=== PATIENT | male | born 1955 | race Hispanic/Latino ===

== ENCOUNTER 2017-09-27 22:08 | Emergency (ER) | payer SELFPAY ==
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
[2017-09-27 23:27] VITALS: BP 152/87; TEMP 97.5; O2SAT 96
== END 2017-09-27 23:23 | disposition home or self-care (01) ==
LOC: ER 22:08
DX: S81.851A Open bite, right lower leg, initial encounter (principal); W54.0XXA Bitten by dog, initial encounter; Y93.9 Activity, unspecified; Y92.9 Unspecified place or not applicable
CPT/HCPCS: 99284

== ENCOUNTER 2021-09-29 12:27 | Emergency (ER) | payer OTHER, SELFPAY ==
--- OUTSIDE RECORDS SUMMARY | 2021-09-29 12:30 | XMS REPORT | Continuity of Care Document ---
:1955 Author Organization [facility] t Address [address] [place] [address] Care Team Providers Name Role Phone Macario REAVES Primary Care Physician Unavailable Macario Reaves Attending Clinician Unavailable uRssell BASSETT Attending Clinician RUSSELL Attending Clinician Unavailable Payers Payer Name Policy Type Policy Number Effective Date Expiration Date S hafsa [employer] MEDICARE OUT [id number] 2020 OF NETWORK 00:00:00 Problems Condition Condition Condition Status Onset Resolution Last Treating Co mments Source Name Details Category Date Date Treatment Clinician Date No known No known Disease Unive rs active active ity of problems problems [facility] Allergies, Adverse Reactions, Alerts Allergy Allergy Status Severity Reaction(s) Onset Inactive Treating Comm ents Source Name Type Date Date Clinician NO KNOWN Drug Active Univers ALLERGIE Class ity of S [facility] Social History Social Habit Start Date Stop Date Quantity Comments Source Exposure to 2021-09-15 2021-09-25 Not sure [facility] SARS-CoV-2 (event) 00:00:00 10:52:00 Medica l Branch Sex Assigned At [birth year] [facility] 00:00:00 00:00:00 [facility] [place] Smoking Status Start Date Stop Date Source Unknown if ever smoked [facility] Medications Ordered Filled Start Stop Current Ordering Indication Dosage Frequency Signature Comments Components Source Medication Medication Date Date Medication? Clinician (SIG) Name Name meclizine 50mg 50 mg, Unive rs (TRAVEL-EAS 09-25 Oral, ity of E 17:15: 16:19 ONCE, 1 [place] (MECLIZINE) 00 :00 dose, On [facility] ) tablet 50 Mon Branch mg 09/25/21 at 1215, JAMES meclizine Yes [id number] 25mg Take 1 U nivers 25 mg -25 tablet by ity of tablet 00:00: mouth 3 [place] 00 (three) Medical times [place] daily as needed for Dizziness. Immunizations Ordered Filled Immunization Date Status Comments [facility] e Immunization Name Name SARS-COV-2 COVID-19 2021-03-27 Completed Unive rsity of MODERNA BOOSTER 00:00:00 [facility] VACCINE Branch SARS-COV-2 COVID-19 2020 Completed Unive rsity of MODERNA VACCINE 00:00:00 [facility] SARS-COV-2 COVID-19 2020-08-10 Completed Unive rsity of MODERNA VACCINE 00:00:00 [facility] Vital Signs Vital Name Observation Time Observation Value Comments Source Systolic blood 2021-09-25 18:30:00 151 mm[Hg] Univer sity of pressure [facility] Diastolic blood 2021-09-25 18:30:00 84 mm[Hg] Unive rsity of pressure [facility] Heart rate 2021-09-25 18:30:00 60 /min [facility] Respiratory rate 2021-09-25 18:30:00 18 /min [facility] Oxygen saturation in 2021-09-25 18:30:00 96 /min [facility] Arterial blood by [facility] Pulse oximetry Branch Body temperature 2021-09-25 15:53:00 37.5 [facility] height 2021-09-25 15:53:00 167.6 cm [facility] Body weight 2021-09-25 15:53:00 106.595 kg [facility] BMI 2021-09-25 15:53:00 37.93 kg/m2 [facility] Procedures Procedure Date / Time Performing Clinician Source Performed URINALYSIS 2021-09-25 17:06:00 rA Willis [facility] TROPONIN I 2021-09-25 16:15:00 Ar Willis [facility] COMP. METABOLIC PANEL 2021-09-25 16:15:00 Ar Willis [facility] ([id number]) [facility] CBC WITH DIFF 2021-09-25 16:15:00 Ar Willis [facility] PROTHROMBIN TIME / INR 2021-09-25 16:15:00 Ar Willis [facility] N-TERMINAL PRO-BNP 2021-09-25 16:15:00 Ar Willis [facility] NOTICE OF PRIVACY 2021-09-25 15:19:29 Doctor Unassigned, No [facility] PRACTICES Name [facility] CONSENT/REFUSAL FOR 2021-09-25 15:16:45 Doctor Unassigned, No [facility] DIAGNOSIS AND TREATMENT Name [facility] Encounters Start End Encounter Admission Attending Care Care Encounter Source Date/Time Date/Time Type Type Clinicians Facility Department ID 2021-09-28 Outpatient Reaves, [facility] 15:16:01 [place] [id number] [facility] 2021-08-21 Outpatient [place], [place] [id number] 14:33:01 [place] [address] [facility] 2021-06-28 Outpatient Reaves, [facility] [id number] 13:28:32 [place] [address] [facility] 2021-06-28 Outpatient Reaves, [place] [id number] 13:27:55 [place] [address] [facility] 2021-06-28 Outpatient Reaves, [facility] [id number] 13:12:22 [place] [address] [facility] 2021-06-28 Outpatient Reaves, [facility] [id number] 12:46:44 [place] [address] [facility] 2021-06-28 Outpatient Reaves, [facility] [id number] 12:35:25 [place] [address] [facility] 2021-06-28 Outpatient Reaves, [facility] [id number] 12:34:29 [place] [address] [facility] 2021-06-28 Outpatient Reaves, [facility] [id number] 12:09:27 [place] [address] [facility] 2021-06-28 Outpatient Reaves, [facility] [id number] 12:08:45 [place] [address] [facility] 2021-06-28 Outpatient Reaves, [facility] [id number] 12:03:46 [place] [address] [facility] 2021-06-28 Outpatient Reaves, [facility] [id number] 12:02:46 [place] [address] [facility] 2021-06-28 Outpatient Reaves, [facility] [id number] 12:02:32 [place] [address] [facility] 2021-09-27 2021-09-27 ambulatory [facility] [id number] [facility]00 [facility] 2021-09-26 2021-09-26 ambulatory [facility] [id number] [facility] 2021-09-25 2021-09-25 Emergency Willis, [facility] [id number] Univers 10:54:00 13:49:00 Ar GRAY [id number] i Joel [id number] [facility] [id number] [address] 2021-09-25 2021-09-25 Emergency X RUSSELL, [facility] ERT [id number] Univers 10:54:00 13:49:00 AR [facility] 2021-08-21 2021-08-21 ambulatory [facility] [id number] [facility] 2021-08-21 2021-08-21 ambulatory [facility] [id number] [facility] 2021-08-21 2021-08-21 ambulatory [facility] [id number] [facility] 2021-07-31 2021-07-31 ambulatory [facility] [id number] [facility] 2021-06-01 2021-06-01 ambulatory [facility] [id number] [facility] 2020-12-16 2020-12-16 Outpatient [facility] [id number] [facility] 2020-12-07 2020-12-07 Outpatient [facility] [id number] [facility] 2020-12-02 2020-12-02 Outpatient [facility] [id number] [facility] 2020-10-14 2020-10-14 Outpatient [facility] [id number] [facility] 2020-10-03 2020-10-03 Outpatient [facility] [id number] [facility] 2020-09-01 2020-09-01 Outpatient [facility] [id number] [facility] 2020-08-18 2020-08-18 Outpatient [facility] [id number] [facility] 2020-08-02 2020-08-02 Out[facility] [id number] [facility] 2020-08-02 2020-08-02 Outpatient [facility] [id number] [facility] 2020-06-30 2020-06-30 Outpatient [facility] [id number] [facility] 2020-05-16 2020-05-16 Outpatient [facility] [id number] [facility] 2020-05-03 2020-05-03 Outpatient [facility] [id number] [facility] 2020-04-07 2020-04-07 [facility] [id number] [facility] 2020-04-07 2020-04-07 Outpatient [facility] [id number] [facility]00 [facility] Results Test Description Test Time Test Comments Results Result Comments Source TROPONIN I 2021-09-25 17:05:44 Test Item Value Reference Range Interpretation Comme nts TROPONIN I (test code = 0.004 ng/mL See_Comment [Au tomated message] The [id number]) system which ge nerated this result tra nsmitted reference range : <=0.034. The reference r serg was not used to int erpret this result as normal/abnormal . DAMIAN (test code = DAMIAN) Reference (Normal) Range (defined by the 99th percentile reference limit): <= 0.034 ng/mL Note: Cardiac troponin begins to rise 3-4 hours after the onset of ischemia. Repeat in 4-6 hours if the sample was drawn within 3-4 hours of the onset of the symptom and found normal. Diagnosis of myocardial injury is made with acute changes in cTn concentrations with at least one serial sample above the 99th percentile upper reference limit (URL), taken together with the patient's clinical presentation. Biotin has been reported to cause a negative bias, interpret results relative to patient's use of biotin. Lab Interpretation Normal (test code = 23510-3) [id number] 17:02:41 Test Item Value Reference Range Interpretation Comments NT-proBNP (test code 189 pg/mL See_Comment H [Autom ated = [id number]) message] The system which generated this result transmitted reference range : <=125. The reference range was not used to interpret this result as normal/abnormal . DAMIAN (test code = DAMIAN) Biotin has been reported to cause a negative bias, interpret results relative to patient's use of biotin. Lab Interpretation Abnormal (test code = 93719-6) [facility] / [id number] 16:54:00 Test Item Value Reference Range Interpretation Comments PROTIME PATIENT (test See_Comment [Auto mated message] code = 5964-2) The system wh ich generated this result transmitted ref erence range: 12.0 - 1 4.7 Seconds. The re ference range was not u sed to interpret this result as normal/abnor mal. INR (test code = 6301-6) Nor mal INR <1.1; Warfarin Therap eutic range 2.0 to 3. 0 or 2.5 to 3.5, dep ending upon the indica tions. Lab Interpretation (test Normal code = 33745-4) [facility] ([id number])2021-09-25 16:53:21 Test Item Value Reference Range Interpretation Comments NA (test code = 137 mmol/L 135-145 0121711827) K (test code = 4.1 mmol/L 3.5-5.0 7688109170) CL (test code = 99 mmol/L 98-108 2509890225) CO2 TOTAL (test code = 27 mmol/L 23-31 8836631098) AGAP (test code = 2-16 3040968739) BUN (test code = 13 mg/dL 7-23 0001055010) GLUCOSE (test code = 191 mg/dL 70-110 H 7814846342) CREATININE (test code = 0.68 mg/dL 0.60-1.25 5526242924) TOTAL BILI (test code = 0.5 mg/dL 0.1-1.4 3674393509) CALCIUM (test code = 9.7 mg/dL 8.6-10.6 4391239395) T PROTEIN (test code = 7.0 g/dL 6.3-8.2 9402112426) ALBUMIN (test code = 4.4 g/dL 3.5-5.0 8632984179) ALK PHOS (test code = 68 U/L 34-122 6952217004) ALTv (test code = 30 U/L 5-50 2-6) AST(SGOT) (test code = 28 U/L 13-40 8712142978) eGFR (test code = mL/min/1.73m2 2757582266) DAMIAN (test code = DAMIAN) Association of Glomerular Filtration Rate (GFR) and Staging of Kidney Disease* + --+ --+ ------+| GFR (mL/min/1.73 m2) ?| With Kidney Damage ?| ?Without Kidney Damage+ --------+ --------+ +| ?>90 ?| ?Stage one ?| ? Normal ?+ ---+ ---+ -------+| ?60-89 ?| ?Stage two ?| ? Decreased GFR ? + --+ --+ ------+| ?30-59 ?| ?Stage three ?| ? Stage three ? + --+ --+ ------+| ?15-29 ?| ?Stage four ? | ? Stage four ?+ ---+ ---+ -------+| ?<15 (or dialysis) ? ?| ?Stage five ? | ? Stage five ?+ ---+ ---+ -------+ *Each stage assumes the associated GFR level has been in effect for at least three months. ?Stages 1 to 5, with or without kidney disease, indicate chronic kidney disease. Notes: Determination of stages one and two (with eGFR >59mL/min/1.73 m2) requires estimation of kidney damage for at least three months as defined by structural or functional abnormalities of the kidney, manifested by either:Pathological abnormalities or Markers of kidney damage (including abnormalities in the composition of the blood or urine or abnormalities in imaging tests). Lab Interpretation Abnormal (test code = 39686-0) [facility] [id number] 16:48:42 Test Item Value Reference Range Interpretation Comments WBC (test code = See_Comment [Automated 6690-2) message] The sy stem which generated this result transmitted reference range : 4.20 - 10.70 10*3/?L. The reference range was not used to interpret this result as normal/abnormal . RBC (test code = See_Comment [Automated 789-8) message] The sy stem which generated this result transmitted reference range : 4.26 - 5.52 10*6/?L. The reference range was not used to interpret this result as normal/abnormal . HGB (test code = 14.0 g/dL 12.2-16.4 718-7) HCT (test code = 41.0 % 38.4-49.3 4544-3) MCV (test code = 87.2 fL 81.7-95.6 787-2) MCH (test code = 29.8 pg 26.1-32.7 785-6) MCHC (test code = 34.1 g/dL 31.2-35.0 786-4) RDW-SD (test code = 37.1 fL 38.5-51.6 L 43574-8) RDW-CV (test code = 11.6 % 12.1-15.4 L 788-0) PLT (test code = See_Comment [Automated 777-3) message] The sy stem which generated this result transmitted reference range : 150 - 328 10*3/ ?L. The reference r serg was not used to interpret this result as normal/abnormal . MPV (test code = 10.0 fL 9.8-13.0 11995-5) NRBC/100 WBC (test See_Comment [Automat ed code = 7147687895) message] The system which generated this result transmitted reference range : 0.0 - 10.0 /100 WBCs. The refer ence range was not u sed to interpret th is result as normal/abnormal . NRBC x10^3 (test code <0.01 See_Comment [Auto mated = 9351763119) message] The s ystem which generated this result transmitted reference range : 10*3/?L. The reference range was not used to interpret this result as normal/abnormal . GRAN MAT (NEUT) % 55.4 % (test code = 770-8) IMM GRAN % (test code 0.30 % = 2168531340) LYMPH % (test code = 28.3 % 736-9) MONO % (test code = 10.1 % 5905-5) EOS % (test code = 5.4 % 713-8) BASO % (test code = 0.5 % 706-2) GRAN MAT x10^3(ANC) 3.66 10*3/uL 1.99-6.95 (test code = 4413456222) IMM GRAN x10^3 (test <0.03 0.00-0.06 code = 9102299429) LYMPH x10^3 (test code 1.87 10*3/uL 1.09-3.23 = 731-0) MONO x10^3 (test code 0.67 10*3/uL 0.36-1.02 = 742-7) EOS x10^3 (test code = 0.36 10*3/uL 0.06-0.53 711-2) BASO x10^3 (test code 0.03 10*3/uL 0.01-0.09 = 704-7) Lab Interpretation Abnormal (test code = 63149-0) [facility]"
[2021-09-29 14:00] LABS: Absolute Lymphocytes (CBC) 2.3 K/uL (0.7-4.9); Hematocrit 42.9 % (39.6-49.0); Lymphocytes % 27.7 % (15.3-44.8); RBC Red Blood Cell Count 4.79 M/uL (4.33-5.43)
--- NOTE | 2021-09-29 14:11 | RAD REPORT ---
EXAM DESCRIPTION: CT - Head Brain Wo Cont - 09/29/2021 1:54 pm CLINICAL HISTORY: Dizziness COMPARISON: None TECHNIQUE: Computed axial tomography of the head was obtained. IV contrast was not requested. All CT scans are performed using dose optimization technique as appropriate and may include automated exposure control or mA/KV adjustment according to patient size. FINDINGS: An intracranial bleed is not seen . The ventricles are normal in caliber. No extra-axial fluid collection is noted. Vertebral and carotid calcifications. Small low-density area within the right basal ganglia probably old lacunar infarction Fluid within the sinuses/ mastoids is not seen. A mucus retention cyst right maxillary sinus IMPRESSION: No acute intracranial abnormality is seen. If patient's symptoms persist MRI of the bra in would be recommended.
[2021-09-29 14:12] LABS: Potassium 3.7 mmol/L (3.5-5.1); Troponin High Sensitivity 6.5 pg/mL (<58.9)
--- NOTE | 2021-09-29 15:05 | RAD REPORT ---
EXAM DESCRIPTION: Mayur Single View09/29/2021 2:03 pm CLINICAL HISTORY: Chest pain COMPARISON: 2011 FINDINGS: The lungs appear clear of acute infiltrate. The heart is normal size IMPRESSION: No acute abnormalities displayed
--- NOTE | 2021-09-29 16:54 | RAD REPORT ---
EXAM DESCRIPTION: MRI - Brain W/Wo Cont - 09/29/2021 4:04 pm CLINICAL HISTORY: Dizziness COMPARISON: head CT September 29, 2021 TECHNIQUE: Axial, sagittal, and coronal magnetic images of the brain were obtained. 20 cc MultiHance administered intravenously FINDINGS: A 2 centimeter area of abnormal signal right unique consistent with acute infarction. 3.8 centimeter area of abnormal signal medial left temporal lobe. It demonstrates mostly peripheral e nhancement. The ventricles are normal in caliber. Mild signal within periventricular, deep and subcortical white matter probably ischemic changes secon dayana to small vessel disease. No abnormal enhancement within the brain is seen. An extra-axial fluid collection is not noted. Fluid within the sinuses/mastoids is not seen IMPRESSION: Acute right pontine infarct 3.8 centimeter area of abnormal enhancement left temporal lobe may represent infection such as herpes or neoplasm
[2021-09-29] MEDS ORDERED: LEVETIRACETAM 500 MG/5 ML VIAL IV ONE (17:34)
[2021-09-29] MEDS ORDERED: NA CHLORIDE 0.9% 100 ML IV ONE (17:35)
--- NOTE | 2021-09-29 17:37 | EDPHYS ---
Physician Documentation [facility] Name: Charlie Vences Jr Age: 66 yrs Sex: Male : 1955 Arrival Date: 09/29/2021 Time: 12:29 Bed 17 Private MD: Jean Paul [facility] ED Physician Gerald Nur HPI: 09/29 14:21 This 66 yrs old Male presents to ER via Ambulatory with complaints of kdr Dizziness, Headache. 14:21 The patient presents with generalized weakness, lightheadedness, feeling off balance. kdr Onset: The symptoms/episode began/occurred suddenly, 1 week(s) ago. Context: occurred at home, occurred while the patient was at rest. Modifying factors: The symptoms are alleviated by holding head still, lying down, the symptoms are aggravated by movement of head, standing up, changing position. Associated signs and symptoms: The patient has no apparent associated signs or symptoms, Pertinent positives: blurred vision, headache. Severity of symptoms: At their worst the symptoms were very mild in the emergency department the symptoms are unchanged. Patient's baseline: Neuro: alert and fully oriented, alert but confused. The patient has not experienced similar symptoms in the past. The patient has not recently seen a physician. Since last Saturday the patient has been dizzy. Seem to get worse over the weekend. Currently he is not dizzy while in bed in a stationary position but if he looks up or down he has mild to moderate dizziness. Also when he changes positions is lightheaded and dizzy.. Historical: - Home Meds: 12:37 None [Active]; ab2 - PMHx: 12:37 Diabetes - NIDDM; Hypertension; ab2 - PSHx: 12:37 None; ab2 - Immunization history:: Adult Immunizations up to date. - Social history:: Smoking status: Patient reports the use of cigarette tobacco products, smokes one pack cigarettes per day. ROS: 14:21 Constitutional: Negative for fever, chills, and weight loss, Eyes: Negative for injury, kdr pain, redness, and discharge, ENT: Negative for injury, pain, and discharge, Neck: Negative for injury, pain, and swelling, Cardiovascular: Negative for chest pain, palpitations, and edema, Respiratory: Negative for shortness of breath, cough, wheezing, and pleuritic chest pain, Abdomen/GI: Negative for abdominal pain, nausea, vomiting, diarrhea, and constipation, Back: Negative for injury and pain, : Negative for injury, bleeding, discharge, and swelling, MS/Extremity: Negative for injury and deformity, Skin: Negative for injury, rash, and discoloration, Psych: Negative for depression, anxiety, suicide ideation, homicidal ideation, and hallucinations, Allergy/Immunology: Negative for hives, rash, and allergies, Endocrine: Negative for neck swelling, polydipsia, polyuria, polyphagia, and marked weight changes, Hematologic/Lymphatic: Negative for swollen nodes, abnormal bleeding, and unusual bruising. 14:21 Neuro: Positive for altered mental status, headache, visual changes, weakness, Patient reports a headache that is nonacute and nontoxic, Negative for gait disturbance, hearing loss. Exam: 14:21 Constitutional: This is a well developed, well nourished patient who is awake, alert, kdr and in no acute distress. Head/Face: Normocephalic, atraumatic. Eyes: Pupils equal round and reactive to light, extra-ocular motions intact. Lids and lashes normal. Conjunctiva and sclera are non-icteric and not injected. Cornea within normal limits. Periorbital areas with no swelling, redness, or edema. Neck: Trachea midline, no thyromegaly or masses palpated, and no cervical lymphadenopathy. Supple, full range of motion without nuchal rigidity, or vertebral point tenderness. No Meningismus. Chest/axilla: Normal chest wall appearance and motion. Nontender with no deformity. No lesions are appreciated. Cardiovascular: Regular rate and rhythm with a normal S1 and S2. No gallops, murmurs, or rubs. Normal PMI, no JVD. No pulse deficits. Respiratory: Lungs have equal breath sounds bilaterally, clear to auscultation and percussion. No rales, rhonchi or wheezes noted. No increased work of breathing, no retractions or nasal flaring. Abdomen/GI: Soft, non-tender, with normal bowel sounds. No distension or tympany. No guarding or rebound. No evidence of tenderness throughout. Back: No spinal tenderness. No costovertebral tenderness. Full range of motion. Skin: Warm, dry with normal turgor. Normal color with no rashes, no lesions, and no evidence of cellulitis. MS/ Extremity: Pulses equal, no cyanosis. Neurovascular intact. Full, normal range of motion. Neuro: Awake and alert, GCS 15, oriented to person, place, time, and situation. Cranial nerves II-XII grossly intact. Motor strength 5/5 in all extremities. Sensory grossly intact. Cerebellar exam normal. Normal gait. Psych: Awake, alert, with orientation to person, place and time. Behavior, mood, and affect are within normal limits. 14:21 Neuro: Patient stood at bedside. He had very slight dizziness at that time. He did not have any nausea or vomiting. And going from laying to sitting, he did not have any vertiginous symptoms. Overall his symptoms were very mild. Vital Signs: 12:35 BP 157 / 86; Pulse 71; Resp 17; Temp 97.9; Pulse Ox 99% on R/A; Weight 106.59 kg; ab2 Height 5 ft. 6 in. (167.64 cm); Pain 8/10; 14:23 BP 137 / 72; Pulse 63; Resp 17; Pulse Ox 98% on R/A; ceja 17:08 BP 155 / 63; Pulse 86; Resp 17; Pulse Ox 98% on R/A; ceja 12:35 Body Mass Index 37.93 (106.59 kg, 167.64 cm) ab2 MDM: 14:21 Data reviewed: vital signs, nurses notes, lab test result(s), radiologic studies. kdr Counseling: I had a detailed discussion with the patient and/or guardian regarding: the historical points, exam findings, and any diagnostic results supporting the discharge/admit diagnosis, lab results, radiology results, the need for outpatient follow up. 17:36 Patient medically screened. kdr 18:12 ED course: I discussed the results with Dr. Whaley. He felt that given the lack of kdr signs and symptoms of infection, herpes was not likely at this time. Given his medical history and social history of being a smoker, certainly the neoplasm was high up on the list. He recommended that we load with Keppra and transfer to [facility] in the [facility]. He was not going to be available after today through the weekend. Patient remained stable in the ED and was transferred to the [facility] without complication or issues. I discussed all of the findings with the patient and the spouse. They were happy with the care provided the plan for transfer to the [facility]. 09/29 12:47 Order name: Basic Metabolic Panel; Complete Time: 16:36 kdr 09/29 12:47 Order name: CBC with Diff kdr 09/29 12:47 Order name: Troponin HS; Complete Time: 16:36 kdr 09/29 12:47 Order name: XRAY Chest (1 view); Complete Time: 16:36 kdr 09/29 13:24 Order name: CT Head Brain wo Cont; Complete Time: 16:36 kdr 09/29 17:17 Order name: SARS-COV-2 RT PCR (Document "Date of Onset" if Symptomatic) eb 09/29 12:47 Order name: EKG; Complete Time: 12:48 kdr 09/29 12:47 Order name: Cardiac monitoring; Complete Time: 14:21 kdr 09/29 12:47 Order name: EKG - Nurse/Tech; Complete Time: 13:09 kdr 09/29 12:47 Order name: IV Saline Lock; Complete Time: 14:21 kdr 09/29 12:47 Order name: Labs collected and sent; Complete Time: 14:21 kdr 09/29 12:47 Order name: O2 Per Protocol; Complete Time: 14:21 kdr 09/29 13:24 Order name: MRI - Brain W/Wo Cont; Complete Time: 17:02 kdr 09/29 12:47 Order name: O2 Sat Monitoring; Complete Time: 14:21 kdr Administered Medications: 17:35 Drug: Keppra (levETIRAcetam) 1000 mg Route: IV; Rate: calculated rate; Site: right ceja antecubital; Disposition Summary: 09/29/21 17:36 Transfer Ordered Transfer Location: [facility] kdr Reason: Higher level of care kdr Condition: Serious kdr Problem: new kdr Symptoms: have improved kdr Accepting Physician: Arjun(09/29/21 19:55) betsey Diagnosis - Acute Pontine Infarct, Temporal lobe lesion kdr Forms: - Medication Reconciliation Form kdr - SBAR form kdr Signatures: Dispatcher [employer] EDMS Gerald Nur MD MD kdr Rylee Acosta RN Kathryn Pearl RN RN ha Bleininger, Alexis ab2 Corrections: (The following items were deleted from the chart) 19:55 17:36 Arjun leggett
--- NOTE | 2021-09-29 17:37 | ER ---
Nurse's Notes [facility] Name: Charlie Vences Jr Age: 66 yrs Sex: Male : 1955 Arrival Date: 09/29/2021 Time: 12:29 Bed 17 Private MD: Edgard Reaves Diagnosis: Acute Pontine Infarct, Temporal lobe lesion Presentation: 09/29 12:35 Chief complaint: Patient states: "Since Saturday I have been dizzy and having a hard time ab2 keeping my balance." Pt denies chest pain and SOB. Pt c/o headache. Chief complaint:. Coronavirus screen: Vaccine status: Patient reports receiving the 2nd dose of the covid vaccine. Client denies travel out of the [place] in the last 14 days. At this time, the client does not indicate any symptoms associated with coronavirus-19. Ebola Screen: Patient negative for fever greater than or equal to 101.5 degrees Fahrenheit, and additional compatible Ebola Virus Disease symptoms Patient denies exposure to infectious person. Patient denies travel to an Ebola-affected area in the 21 days before illness onset. No symptoms or risks identified at this time. Initial Sepsis Screen: Does the patient meet any 2 criteria? No. Patient's initial sepsis screen is negative. Does the patient have a suspected source of infection? No. Patient's initial sepsis screen is negative. Risk Assessment: Do you want to hurt yourself or someone else? Patient reports no desire to harm self or others. Onset of symptoms is unknown. 12:35 Method Of Arrival: Ambulatory ab2 12:35 Acuity: AIMEE 3 ab2 Triage Assessment: 12:37 Headache History: The patient has had previous headaches and this one is similar to ab2 previous episodes. General: Appears in no apparent distress. uncomfortable, Behavior is calm, cooperative, appropriate for age. Pain: Complains of pain in head Pain currently is 8 out of 10 on a pain scale. Pain began Saturday Also complains of sleeplessness. Neuro: Level of Consciousness is awake, alert, obeys commands, Oriented to person, place, time, situation, Appropriate for age Adjunct Professor Of Voice are equal bilaterally Moves all extremities. Gait is Speech is normal, Facial symmetry appears normal, Intact. Cardiovascular: Reports lightheadedness, Denies chest pain, shortness of breath, Patient's skin is warm and dry. Respiratory: Airway is patent Respiratory effort is even, unlabored, Respiratory pattern is regular, symmetrical. GI: No deficits noted. No signs and/or symptoms were reported involving the gastrointestinal system. : No deficits noted. No signs and/or symptoms were reported regarding the genitourinary system. Derm: Skin is intact, is healthy with good turgor, Skin is pink, warm \\T\\ dry. Musculoskeletal: No deficits noted. No signs and/or symptoms reported regarding the musculoskeletal system. Historical: - Home Meds: 12:37 None [Active]; ab2 - PMHx: 12:37 Diabetes - NIDDM; Hypertension; ab2 - PSHx: 12:37 None; ab2 - Immunization history:: Adult Immunizations up to date. - Social history:: Smoking status: Patient reports the use of cigarette tobacco products, smokes one pack cigarettes per day. Screenin:31 Abuse screen: Denies threats or abuse. Denies injuries from another. Nutritional ceja screening: No deficits noted. Tuberculosis screening: No symptoms or risk factors identified. Fall Risk None identified. Assessment: 14:31 General: Appears in no apparent distress. distressed, Behavior is calm, cooperative. ceja Pain: Denies pain. Neuro: Reports dizziness, headache. 19:34 Reassessment: The pt is to be transported, via EMS, to [facility]. His is at bedside and we are awaiting EMS to arrive. Report was called by previous RN and the chart has been copied. The pt remarkably, has no deficits. 19:47 Reassessment: The pt left, via EMS, with [facility]. [facility]ulated [facility] and his sent him with his home meds, for admit. Vital Signs: 12:35 BP 157 / 86; Pulse 71; Resp 17; Temp 97.9; Pulse Ox 99% on R/A; Weight 106.59 kg; ab2 Height 5 ft. 6 in. (167.64 cm); Pain 8/10; 14:23 BP 137 / 72; Pulse 63; Resp 17; Pulse Ox 98% on R/A; ceja 17:08 BP 155 / 63; Pulse 86; Resp 17; Pulse Ox 98% on R/A; ceja 12:35 Body Mass Index 37.93 (106.59 kg, 167.64 cm) ab2 ED Course: 12:29 Patient arrived in ED. am2 12:29 Edgard Reaves DO is Private Physician. am2 12:37 Triage completed. ab2 12:38 Arm band placed on left wrist. ab2 12:40 Kathryn Ortiz, BRITT is Primary Nurse. ceja 12:42 Gerald Nur MD is Attending Physician. kdr 13:56 CT Head Brain wo Cont In Process Unspecified. EDMS 14:05 XRAY Chest (1 view) In Process Unspecified. EDMS 14:31 Patient has correct armband on for positive identification. Bed in low position. ceja 14:31 No provider procedures requiring assistance completed. Inserted saline lock: 20 gauge ceja in right antecubital area, using aseptic technique. 16:01 MRI - Brain W/Wo Cont In Process Unspecified. EDMS 17:18 initiated a transfer with Claudio Villarreal with the [facility]. eb 17:25 SARS-COV-2 RT PCR (Document "Date of Onset" if Symptomatic) Sent. ceja 17:[address] Díaz the neurologist production line assembler Dr. Nur for patient transfer eb consultation. 18:[address] Rausch the hospitalist production line assembler for [facility] with Dr. Nur for eb patient transfer consultation. 18:07 administrative approval given by Claudio Villarreal/ patient has been accepted to [facility] bed 2227/ [facility] has accepted the patient in transfer/ report to be called to [phone]. Administered Medications: 17:35 Drug: Keppra (levETIRAcetam) 1000 mg Route: IV; Rate: calculated rate; Site: right ceja antecubital; Outcome: 17:36 ER care complete, transfer ordered by . kdr 19:55 Patient left the ED. betsey Signatures: Dispatcher [employer] EDMS Gerald Nur MD MD kdr Moreno, Amanda am2 Sadie Alvarez Brenda, RN RN bo Au-Stager, Heather, RN RN ha Bleininger, Alexis ab2
[2021-09-29 20:47] VITALS: TEMP 97.9
[2021-09-29 20:48] VITALS: O2SAT 98
[2021-09-29 20:50] VITALS: BP 155/63
[2021-09-29 21:50] LABS: Blood Morphology Comment NOT SEEN (NOT SEEN); Platelet Estimate ADEQ; White Blood Cell Scan OK (OK)
--- NOTE | 2021-09-30 09:46 | EKG ---
Test Date: 2021-09-29 Test Time: 12:55:11 Policy Writer Sales: [employer] MEASUREMENT RESULTS: Intervals: Rate: 63 WY: 148 QRSD: 90 QT: 410 QTc: 419 [place]: P: 33 WY: 148 QRS: -13 T: 40 INTERPRETIVE STATEMENTS: Normal sinus rhythm Normal ECG Compared to ECG 10/12/2011 09:06:08 No significant changes Electronically Signed On 09-30-21 09:44:01 CDT by Maxim Cates
== END 2021-09-29 19:55 | disposition short-term general hospital (02) ==
LOC: ER 12:27
DX: I63.29 Cerebral infarction due to unspecified occlusion or stenosis of other precerebral arteries (principal); G93.9 Disorder of brain, unspecified; I10 Essential (primary) hypertension; E11.9 Type 2 diabetes mellitus without complications; F17.210 Nicotine dependence, cigarettes, uncomplicated; Z20.822 Contact with and (suspected) exposure to COVID-19
CPT/HCPCS: 93005 ×2; 85025; 80048; 36415; 84484; 70450; 71045; 70553; 96374; 99284; U0003; A9577; J1953

== ENCOUNTER 2022-05-26 22:55 | Inpatient (IN) | payer OTHER ==
--- OUTSIDE RECORDS SUMMARY | 2022-05-26 22:58 | XMS REPORT | Clinical Summary ---
:1955 Author Organization [facility] MD [facility] Address [address] [place] [address] Care Team Providers Name Role Phone Edgard Reaves DO Unavailable Allergies Not on File Medications Not on file Active Problems Not on file Encounters Date Type Specialty Care Team Description 11/24/2021 Ancillary Procedure Radiology Cancer 11/24/2021 Ancillary Procedure Radiology Cancer 11/24/2021 Ancillary Procedure Radiology Cancer 11/24/2021 Ancillary Procedure Radiology Cancer 11/24/2021 Ancillary Procedure Radiology Cancer 11/24/2021 Ancillary Procedure Radiology Cancer 11/24/2021 Ancillary Procedure Radiology Cancer 11/24/2021 Ancillary Procedure Radiology Cancer 11/16/2021 Ancillary Procedure Radiology Cancer after 05/26/2021 Social History Tobacco Use Types Packs/Day Years Used Date Smoking Tobacco: Never Assessed Sex Assigned at Date Recorded Not on file Last Filed Vital Signs Not on file Plan of Treatment Health Maintenance Due Date Last Done Comments COVID-19 Vaccination (4 - Booster 05/22/2021 03/27/2021, , for Moderna series) 08/10/2020 Procedures Procedure Name Priority Date/Time Associated Diagnosis Comme nts OSI MRI HEAD Routine 11/02/2021 2:38 AM Cancer Results f or this CDT procedure are i n the results section. OSI MRI HEAD Routine 10/17/2021 2:38 AM Cancer Results f or this CDT procedure are i n the results section. OSI CT CHEST Routine 10/04/2021 9:48 AM Cancer Results f or this CDT procedure are i n the results section. OSI PET CT SKULL TO Routine 10/03/2021 9:49 AM Cancer Re sults for this MID THIGH CDT procedure are i n the results section. OSI MRI HEAD Routine 10/01/2021 2:38 AM Cancer Results f or this CDT procedure are i n the results section. OSI LUMBAR PUNCTURE Routine 09/30/2021 4:30 PM Cancer Re sults for this W FLUORO CDT procedure are i n the results section. OSI CT CHEST Routine 09/30/2021 9:48 AM Cancer Results f or this ABDOMEN PELVIS CDT procedure are in the results section. OSI CT BRAIN Routine 09/30/2021 9:48 AM Cancer Results f or this CDT procedure are i n the results section. OSI CHEST Routine 09/29/2021 2:38 AM Cancer Results f or this CDT procedure are i n the results section. after 05/26/2021 Results OSI MRI Head (11/02/2021 2:38 AM CDT)Only the most recent of3 resultswithin the time period is included. Specimen (Source) Anatomical Location Collection Method / Collectio n Time Received Time / Laterality Volume Narrative Systemgenerated, Documentation - 2:38 AM CDT Study acquired at another institution. For comparison only. No MD Vences originated interpretation requested or a vailable. Bernardo Finley MD IMG OUTSIDE IMAGE ORDERABLES OSI CT Chest (10/04/2021 9:48 AM CDT) Specimen (Source) Anatomical Location Collection Method / Collectio n Time Received Time / Laterality Volume Narrative Systemgenerated, Documentation - 9:48 AM CDT Study acquired at another institution. For comparison only. No MD Vences originated interpretation requested or a vailable. Bernardo Finley MD IMG OUTSIDE IMAGE ORDERABLES OSI PET CT Skull to Mid Thigh (10/03/2021 9:49 AM CDT) Specimen (Source) Anatomical Location Collection Method / Collectio n Time Received Time / Laterality Volume Narrative Systemgenerated, Documentation - 9:49 AM CDT Study acquired at another institution. For comparison only. No MD Vences originated interpretation requested or a vailable. Bernardo Finley MD IMG OUTSIDE IMAGE ORDERABLES OSI Lumbar Puncture With Fluoro (09/30/2021 4:30 PM CDT) Specimen (Source) Anatomical Location Collection Method / Collectio n Time Received Time / Laterality Volume Narrative Systemgenerated, Documentation - 022 4:31 PM CDT Study acquired at another institution. For comparison only. No MD Vences originated interpretation requested or a vailable. Bernardo Finley MD IMG OUTSIDE IMAGE ORDERABLES OSI CT CHEST ABDOMEN PELVIS (09/30/2021 9:48 AM CDT) Specimen (Source) Anatomical Location Collection Method / Collectio n Time Received Time / Laterality Volume Narrative Systemgenerated, Documentation - 022 9:48 AM CDT Study acquired at another institution. For comparison only. No MD Vences originated interpretation requested or a vailable. Bernardo Finley MD IMG OUTSIDE IMAGE ORDERABLES OSI CT Brain (09/30/2021 9:48 AM CDT) Specimen (Source) Anatomical Location Collection Method / Collectio n Time Received Time / Laterality Volume Narrative Systemgenerated, Documentation - 9:48 AM CDT Study acquired at another institution. For comparison only. No MD Vences originated interpretation requested or a vailable. Bernardo Finley MD IMG OUTSIDE IMAGE ORDERABLES OSI Chest (09/29/2021 2:38 AM CDT) Specimen (Source) Anatomical Location Collection Method / Collectio n Time Received Time / Laterality Volume Narrative Systemgenerated, Documentation - 2:38 AM CDT Study acquired at another institution. For comparison only. No MD Vences originated interpretation requested or a vailable. Bernardo Finley MD IMG OUTSIDE IMAGE ORDERABLES after 05/26/2021 Insurance Payer Benefit Plan / Subscriber ID Effective Dates Phone Addre ss Type Group AETNA MEDICARE AETNA MEDICARE [id number] 2020-Presen [address] Medicare HMO t [facility] [place] [address] Care Teams Manager Of Hospital Relationship Specialty Start Date End Date Edgrad Reaves PCP - External Primary Care Family Practice DO Provider [address] [place] [id number]
--- OUTSIDE RECORDS SUMMARY | 2022-05-26 23:17 | XMS REPORT | Continuity of Care Document ---
:1955 Author Organization [facility] t Address [address] [place] [address] Care Team Providers Name Role Phone DEION SY Primary Care Physician Unavailable Deion Sy Attending Clinician Unavailable MAN BUI Attending Clinician Unavailable Kayla Smart MD Attending Clinician Meagan Garcia RN Attending Clinician Unavailable Man Bui MD Attending Clinician [phone] Haily Reyes MD Attending Clinician HAILY REYES Attending Clinician Unavailable MAN BUI Attending Clinician Unavailable Kayla Smart MD Attending Clinician KAYLA SMART Attending Clinician Unavailable KAYLA SMART Attending Clinician Unavailable Radha Velasquez RN Attending Clinician Unavailable MATTHEW CHAVEZ Attending Clinician Unavailable Matthew Chavez MD Attending Clinician [phone] SHAYY MARTÍNEZ Attending Clinician Unavailable Shayy Martínez NP Attending Clinician Brandon Rogers Attending Clinician Ludin Williamson MD Attending Clinician Saroj NORIEGA, Gladis Seymour Attending Clinician Ramya Brown MD, Guilherme Attending Clinician CASSIUS SAMANIEGO Attending Clinician Unavailable Aden NORIEGA, Cassius Jama Attending Clinician [phone] LUISITO CAMERON Attending Clinician Unavailable LUISITO CAMERON Attending Clinician Unavailable Home NORIEGA, Luisito Attending Clinician Taryn NORIEGA, Rodolfo Nelson Attending Clinician [phone] Shima NORIEGA, Trung Avila Attending Clinician Enzo Castro Attending Clinician DINA MORELOS Attending Clinician Unavailable BARBARA JENKINS Attending Clinician Unavailable Shalom NORIEGA, Makayla Garcias Attending Clinician Santosh Terrell MD Attending Clinician [phone] Alfonso NORIEGA, Miladis Nevarez Attending Clinician [phone] Barbara Jenkins MD Attending Clinician Ar Guzman Attending Clinician AR WILLIS Attending Clinician Unavailable MAN BUI Admitting Clinician Unavailable LUISITO CAMERON Admitting Clinician Unavailable SANTOSH TERRELL Admitting Clinician Unavailable Payers Payer Name Policy Type Policy Number Effective Date Expiration Date S hafsa AETNA MEDICARE HMO [id number] 2020 POS 00:00:00 [facility] [id number] 2022 (MEDICARE 00:00:00 REPLACEMENT HMO) [employer]ET[employer] MEDICARE OUT [id number] 2020 OF NETWORK 00:00:00 Problems Condition Condition Condition Status Onset Resolution Last Treating Co mments Source Name Details Category Date Date Treatment Clinician Date S/p RCABG S/p RCABG Disease Active [facility]1 [facility] (12[facility]25.[facility] (12.25.21) 00:00: [facility] Dr. Airam Chavez [address] [place] [address] Abnormal Abnormal Disease [facility] test test 00:00: [facility] 00 [facility] Abnormal Abnormal Disease Active [facility] cardiac CT 7[facility]21 [facility] angiograph angiograph 00:00: Me dical y y 00 [facility] T2DM (type T2DM (type Disease Active [facility] 2 diabetes 2 diabetes 5-17 [facility] mellitus) mellitus) 00:00: [address] HTN HTN Disease Active [facility] (hypertens (hypertens 5-17 [facility] ion) ion) 00:00: [address] HLD HLD Disease Active [facility] (hyperlipi (hyperlipi 5-17 [facility] demia) demia) 00:00: [facility] 00 [facility] Cerebral Cerebral Disease Active [facility] edema [facility] 00:[facility]: [facility] 00 [facility] Acute Acute Disease Active [facility] post-opera post-opera 5-17 [facility] tive pain tive pain 00:00: [address] Brain Brain Disease Active [facility] tumor tumor 5-16 [facility] 00:00: [facility] 00 [facility] Preoperati Preoperati Disease Active [facility] ve testing ve testing 5-16 [facility]iel kes 00:00: [facility] 00 [facility] Temporal Temporal Disease Active [facility] lobe [facility] lesion lesion 00[facility]00: Medical 00 [facility] Stroke Stroke Disease Active [facility] 4-29 [facility] 00:[facility]: [facility] 00 [facility] Tinnitus Tinnitus Problem Commo n of left of left Spirit ear ear - [facility] Amnesia Acute Problem Common memory Spirit impairment - [facility] Astrocytom Astrocytom Problem C [place] a a Spirit [facility] [id number] Status Problem Common post Spirit craniotomy - [facility] [id number] Balance Problem Commo n problem Spirit - [facility] 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 bypass Medical graft of Center [place] heart with angina pectoris [id number] Other Problem Common chronic Spirit pain - [facility] [id number] Stented Problem Commo n coronary Spirit artery - [facility] [id number] Primary Problem Commo n osteoarthr Spirit itis of - [facility] both knees [facility] [id number] Morbid Problem Common (severe) Spirit obesity - [facility] due to [facility] [id number] Decreased Problem Com mon hearing of Spirit left ear - [facility] [id number] Mixed Problem Common hyperlipid Spirit emia - [facility] [id number] Essential Problem Comm on hypertensi Spirit on - [facility] [id number] Body mass Problem Com mon index Spirit [BMI] - [facility] 35.0-35.9, [facility] Hyperglyce Hyperglyce Disease Active [facility] Acute Acute Disease Active [facility] blood loss blood loss Mariel ke anemia anemia [facility] Center Acute Acute Disease Active [facility] St respirator respirator Mariel kes y y Medical insufficie insufficie Ce nter ncy ncy Thrombocyt Thrombocyt Disease Active C [facility] openia [facility] No known No known Disease [facility] active active College problems problems of Medicin e Allergies, Adverse Reactions, Alerts Allergy Allergy Status Severity Reaction(s) Onset Inactive Treating Comm ents Source Name Type Date Date Clinician NO KNOWN Allergy Active [facility]IE [facility] NO KNOWN Drug Active [facility] ALLERGIE Class ity of [facility] Social History Social Habit Start Date Stop Date Quantity Comments Source History of Tobacco Common Spirit - Use [facility] History SDOH [facility] Transport Non-Med Medical Center History SDOH [facility] Housing Places Medical Ce nter Lived Alcohol intake 2022-04-04 2022-04-04 Ex-drinker [facility] es 00:00:00 00:00:00 (finding) Medical Center History [facility] 2022-04-02 2022-04-02 2 [facility] Med 00:00:00 00:00:[address] History [facility] 2022-04-02 2022-04-02 2 [facility] Housing Unable to 00:00:00 00:00:00 Medical Center Pay History [facility] 2022-04-02 2022-04-[address] [place] Housing Homeless 00:00:00 00:00:00 Medical Center Last Year Cigarettes smoked 2021-12-21 2021-12-[address] [facility] current (pack per 00:00:00 00:00:00 Medical Center day) - Reported Cigarette 2021-12-21 2021-12-[address] [facility] pack-years 00:00:00 00:00:00 Medical Center Tobacco use and 2021-12-21 2021-12-[address] [facility] exposure 00:00:00 00:00:00 Medical Center Tobacco Comment 2021-10-12 2021-10-12 quit 09/[address] [facility] 00:00:00 00:00:00 Medical Center Exposure to 2021-09-15 2021-09-25 Not sure University SARS-CoV-2 (event) 00:00:00 10:52:00 [facility] Sex Assigned At [birth year] JOHNNA Min 00:00:00 00:00:00 [facility] Center Smoking Status Start Date Stop Date Source Unknown if ever smoked Univers[facility] Ex-smoker 2021-12-05 00:00:00 2021-12-05 00:00:00 [facility] Current Smoker 2021-10-26 00:00:00 Common Spiri t - [facility] Ce [facility]ter Medications Ordered Filled Start Stop Current Ordering Indication Dosage Frequency Signature Comments Components Source Medication Medication Date Date Medication? Clinician (SIG) Name Name Multiple 2021-06 Yes Take by [facility] Vitamins-Mi 1-30 mouth. Colleg e nerals 11:59: of (MULTIVITAM 25 Medicin IN ADULT e EXTRA C OR) B Complex-C 2021-06 Yes Take by [facility] (VITAMIN B 1-30 mouth. College + C 11:59: of COMPLEX) 25 Medicin TABS e clopidogreL 2021-06 Yes 75mg QD Take [address] [facility] (PLAVIX) 75 1-03 by mouth Luke s mg tablet 17:45: daily. Medica l 00 [facility] clopidogreL 2021-06 Yes 75mg QD Take [address] [facility] (PLAVIX) 75 1-03 by mouth Luke s mg tablet 17:45: daily. Medica l 00 [place] clopidogreL 2021-06 Yes 75mg QD Take [address] [facility] (PLAVIX) 75 -03 by mouth Luke s mg tablet 17:45: daily. Medica l 00 [place] clopidogreL 2021-06 Yes 75mg QD Take [address] (PLAVIX) 75 -03 by mouth Luke s mg tablet 17:45: daily. Medica l 00 [place] metoprolol 2021-06- No 25mg QD Take [address] tartrate 06-05 by mouth [facility] (LOPRESSOR) 17:45: 00:00 daily. Med ical 25 MG 00 :00 Center tablet losartan 2021-06- No 25mg QD Take [address] (COZAAR) 25 06-05 by mouth Rex es MG tablet 17:45: 00:00 daily. Medic al 00 :00 Center metoprolol 2021-06- No 25mg QD Take [address] tartrate 06-05 by mouth [facility] (LOPRESSOR) 17:45: 00:00 daily. Med ical 25 MG 00 :00 Center tablet losartan 2021-06- No 25mg QD Take [address] (COZAAR) 25 06-05 by mouth Rex es MG tablet 17:45: 00:00 daily. Medic al 00 :00 Center metoprolol 2021-06- No 25mg QD Take [address] tartrate 06-05 by mouth [facility] (LOPRESSOR) 17:45: 00:00 daily. Med ical 25 MG 00 :00 Center tablet losartan 2021-06- No 25mg QD Take [address] (COZAAR) 25 06-05 by mouth Rex es MG tablet 17:45: 00:00 daily. Medic al 00 :00 Center metoprolol 2021-06- No 25mg QD Take [address] tartrate 06-05 by mouth [facility] (LOPRESSOR) 17:45: 00:00 daily. Med ical 25 MG 00 :00 Center tablet losartan 2021-06- No 25mg QD Take [address] (COZAAR) 25 06-05 by mouth Rex es MG tablet 17:45: 00:00 daily. Medic al 00 :00 Center metFORMIN 2021-06 Yes 1000mg Take 1,[address] [facility] [facility] (GLUCOPHAGE 1-02 mg by [facility] ) 1000 MG 18:14: mouth 2 Medic al tablet 30 (two) Center times daily with breakfast and dinner. glipiZIDE 2021-06 Yes 5mg Take [address] [facility] (GLUCOTROL 1-02 by mouth 2 Rex [facility] XL) 5 MG 24 18:14: (two) Medic al hr tablet 30 times Center daily with breakfast and dinner. meclizine 2021-06 Yes 25mg Take [address] (ANTIVERT) 1-02 by mouth 3 Rex es 25 MG 18:14: (three) Medical tablet 30 times Center daily as needed for Dizziness. gabapentin 2021-06 Yes 100mg Take [address] (NEURONTIN) 1-02 mg by [facility] 100 MG 18:14: mouth 4 Medical capsule 30 (four) Center times daily as needed (for pain). metFORMIN 2021-06 Yes 1000mg Take 1,[address] (GLUCOPHAGE 1-02 mg by [facility] ) 1000 MG 18:14: mouth 2 Medic al tablet 30 (two) Center times daily with breakfast and dinner. glipiZIDE 2021-06 Yes 5mg Take [address] [facility] (GLUCOTROL 1-02 by mouth 2 Rex [facility] XL) 5 MG 24 18:14: (two) Medic al hr tablet 30 times Center daily with breakfast and dinner. meclizine 2021-06 Yes 25mg Take [address] (ANTIVERT) 1-02 by mouth 3 Rex es 25 MG 18:14: (three) Medical tablet 30 times Center daily as needed for Dizziness. gabapentin 2021-06 Yes 100mg Take [address] (NEURONTIN) 1-02 mg by [facility] 100 MG 18:14: mouth 4 Medical capsule 30 (four) Center times daily as needed (for pain). metFORMIN 2021-06 Yes 1000mg Take 1,[address] (GLUCOPHAGE 1-02 mg by [facility] ) 1000 MG 18:14: mouth 2 Medic al tablet 30 (two) Center times daily with breakfast and dinner. glipiZIDE 2021-06 Yes 5mg Take [address] [facility] (GLUCOTROL 1-02 by mouth 2 [facility] XL) 5 MG 24 18:14: (two) Medic al hr tablet 30 times Center daily with breakfast and dinner. meclizine 2021-06 Yes 25mg Take [address] (ANTIVERT) 1-02 by mouth 3 [facility] 25 MG 18:14: (three) Medical tablet 30 times Center daily as needed for Dizziness. gabapentin 2021-06 Yes 100mg Take [address] (NEURONTIN) 1-02 mg by [facility] 100 MG 18:14: mouth 4 Medical capsule 30 (four) Center times daily as needed (for pain). metFORMIN 2021-06 Yes 1000mg Take 1,[address] (GLUCOPHAGE 1-02 mg by [facility] ) 1000 MG 18:14: mouth 2 Medic al tablet 30 (two) Center times daily with breakfast and dinner. glipiZIDE 2021-06 Yes 5mg Take [address] [facility] (GLUCOTROL 1-02 by mouth 2 [facility] XL) 5 MG 24 18:14: (two) Medic al hr tablet 30 times Center daily with breakfast and dinner. meclizine 2021-06 Yes 25mg Take [address] (ANTIVERT) 1-02 by mouth 3 Rex es 25 MG 18:14: (three) Medical tablet 30 times Center daily as needed for Dizziness. gabapentin 2021-06 Yes 100mg Take [address] (NEURONTIN) 1-02 mg by [facility] 100 MG 18:14: mouth 4 Medical capsule 30 (four) Center times daily as needed (for pain). metoprolol 2021-06- Yes 25mg Take 25 mg [facility] (TOPROL-XL) 06-04 by mouth. Co llege 25 MG XL 00:00: 04:59 of tablet 00 :00 Medicin e metoprolol 2021-06- Yes 25mg QD Take [address] [address] succinate 06-04 tablet (25 [facility] (TOPROL-XL) 00:00: 23:59 mg total) Medical 25 MG 24 hr 00 :00 by mouth Cent er tablet daily. metoprolol 2021-06- Yes 25mg QD Take [address] succinate 06-04 tablet (25 Rex [facility] (TOPROL-XL) 00:00: 23:59 mg total) Medical 25 MG 24 hr 00 :00 by mouth Cent er tablet daily. metoprolol 2021-06- Yes 25mg QD Take [address] succinate 06-04 tablet (25 [facility] (TOPROL-XL) 00:00: 23:59 mg total) Medical 25 MG 24 hr 00 :00 by mouth Cent er tablet daily. metoprolol 2021-06- Yes 25mg QD Take [address] succinate 06-04 tablet (25 Rex es (TOPROL-XL) 00:00: 23:59 mg total) Medical 25 MG 24 hr 00 :00 by mouth Cent er tablet daily. losartan 2021-06- Yes 50mg QD Take [address] [facility] (COZAAR) 50 06-04 tablet (50 L ukes MG tablet 00:00: 23:59 mg total) Me dical 00 :00 by mouth Center daily for 30 days. losartan 2021-06- Yes 50mg QD Take [address] [facility] (COZAAR) 50 06-04 tablet (50 L [facility]kes MG tablet 00:00: 23:59 mg total) Me dical 00 :00 by mouth Center daily for 30 days. losartan 2021-06- Yes 50mg QD Take [address] (COZAAR) 50 06-04 tablet (50 L [facility]kes MG tablet 00:00: 23:59 mg total) Me dical 00 :00 by mouth Center daily for 30 days. losartan 2021-06- No 50mg QD Take [address] [facility] (COZAAR) 50 06-04 tablet (50 L ukes MG tablet 00:00: 23:59 mg total) Me dical 00 :00 by mouth Center daily for 30 days. metFORMIN 2021-06 Yes 1000mg Take 1,[address] (GLUCOPHAGE 0-31 mg by [facility] ) 1000 MG 06:37: mouth 2 Medic al tablet 48 (two) Center times daily with breakfast and dinner. glipiZIDE 2021-06 Yes 5mg Take [address] [facility] (GLUCOTROL 0-31 by mouth 2 Rex [facility] XL) 5 MG 24 06:37: (two) Medic al hr tablet 48 times Center daily with breakfast and dinner. meclizine 2021-06 Yes 25mg Take [address] (ANTIVERT) 0-31 by mouth 3 Rex es 25 MG 06:37: (three) Medical tablet 48 times Center daily as needed for Dizziness. gabapentin 2021-06 Yes 100mg Take [address] (NEURONTIN) 0-31 mg by [facility] 100 MG 06:37: mouth 4 Medical capsule 48 (four) Center times daily as needed (for pain). metoprolol 2021-06 Yes 25mg QD Take [address] tartrate 0-31 by mouth [facility] (LOPRESSOR) 06:37: daily. Medi jenna 25 MG 48 Center tablet losartan 2021-06 Yes 25mg QD Take [address] (COZAAR) 25 0-31 by mouth Luke s MG tablet 06:37: daily. Medica l 48 Center clopidogreL 2021-06 Yes 75mg QD Take [address] [facility] (PLAVIX) 75 0-31 by mouth Luke s mg tablet 06:37: daily. Medica l 48 Center metformin 2021-06 Yes 1000mg Take 1,000 [facility] (GLUCOPHAGE 0-04 mg by [place] ) 1000 MG 09:04: mouth 2 of tablet 58 times Medicin daily e (with meals). metformin 2021-06 Yes 1000mg Take 1,000 [facility] (GLUCOPHAGE 0-04 mg by [place] ) 1000 MG 09:04: mouth 2 of tablet 58 times Medicin daily e (with meals). Temozolomid 2021-06 Yes Take 280 [facility] 140 MG 0-04 mg (two College CAPS 00:00: 140mg of 00 pills) Medicin nighly for e 5 days out of a 28 day cycle ondansetron 2021-06 Yes [id number] 4mg Take 1 [facility] (ZOFRAN-ODT 0-04 Tablet by Col lege ) 4 mg 00:00: mouth of disintegrat 00 every 6 Medic in ing tablet hours as e needed for Nausea. Temozolomid 2021-06 Yes Take 280 [facility] 140 MG 0-04 mg (two College CAPS 00:00: 140mg of 00 pills) Medicin nighly for e 5 days out of a 28 day cycle ondansetron 2021-06 Yes [id number] 4mg Take 1 [facility] (ZOFRAN-ODT 0-04 Tablet by Col lege ) 4 mg 00:00: mouth of disintegrat 00 every 6 Medic in ing tablet hours as e needed for Nausea. metformin 2022-0 Yes 1000mg Take 1,000 [facility] (GLUCOPHAGE 9-27 mg by [place] ) 1000 MG 15:51: mouth 2 of tablet 54 times Medicin daily e (with meals). clopidogrel 2-0 Yes [id number] 75mg Take 1 [facility] (PLAVIX) 75 9-27 Tablet by Col lege MG Tablet 00:00: mouth of 00 daily. Medicin e clopidogrel 2-0 Yes [id number] 75mg Take 1 [facility] (PLAVIX) 75 9-27 Tablet by Col lege MG Tablet 00:00: mouth of 00 daily. Medicin e losartan 2022-0 Yes [id number] 25mg Take 1 [place] (COZAAR) 25 9-27 Tablet by Col lege MG tablet 00:00: mouth of 00 daily. Medicin e clopidogrel 2-0 Yes [id number] 75mg Take 1 [facility] (PLAVIX) 75 9-27 Tablet by Col lege MG Tablet 00:00: mouth of 00 daily. Medicin e losartan 2022-0 Yes [id number] 25mg Take 1 [place] (COZAAR) 25 9-27 Tablet by Col lege MG tablet 00:00: mouth of 00 daily. Medicin e Clopidogrel 2-0 2022- Yes [id number] 300mg Take 300 [facility] Bisulfate 9-27 09-28 mg by [place] 300 MG TABS 00:00: 04:59 mouth once of 00 :00 for 1 Medicin dose. e hydrocodone 2-0 Yes 1{tbl} Take 1 [facility] -acetaminop 9-07 Tablet by Col lege hen (NORCO) 00:00: mouth of 5-325 mg 00 every 4 Medicin tablet hours as e needed. hydrocodone 2-0 Yes 1{tbl} Take 1 [facility] -acetaminop 9-07 Tablet by Col lege hen (NORCO) 00:00: mouth of 5-325 mg 00 every 4 Medicin tablet hours as e needed. hydrocodone 2022-0 Yes 1{tbl} Take 1 [facility] -acetaminop 9-07 Tablet by Col lege hen (NORCO) 00:00: mouth of 5-325 mg 00 every 4 Medicin tablet hours as e needed. Temozolomid 2022-0 Yes 280mg Take 280 [facility] 140 MG 8-30 mg by [place] CAPS 00:00: mouth of 00 daily. Medicin e Temozolomid 0 Yes 280mg Take 280 [facility] 140 MG 8-30 mg by College CAPS 00:00: mouth of 00 daily. Medicin e polyethylen 2021-0 Yes [id number] 17g Take 17 g [facility] e glycol 8-30 by mouth [place] (GLYCOLAX) 00:00: daily as of 17 GM/SCOOP 00 needed Medici n powder (constipat e ion). polyethylen 2021-0 Yes [id number] 17g Take 17 g [facility] e glycol 8-30 by mouth [place] (GLYCOLAX) 00:00: daily as of 17 GM/SCOOP 00 needed Medici n powder (constipat e ion). polyethylen 0 Yes [id number] 17g Take 17 g [facility] e glycol 8-30 by mouth [place] (GLYCOLAX) 00:00: daily as of 17 GM/SCOOP 00 needed Medici n powder (constipat e ion). Temozolomid 2021- No 280mg Take 280 [facility] e 140 MG 8-30 10-04 mg by College CAPS 00:00: 00:00 mouth of 00 :00 daily. Medicin e Temozolomid 2021- No 280mg Take 280 [facility] e 140 MG 8-30 08-30 mg by College CAPS 00:00: 00:00 mouth of 00 :00 daily. Medicin e metoprolol 2021- No [id number] 25mg Take 1 [facility] (TOPROL-XL) 8-22 11-21 Tablet by Co llege 25 MG XL 00:00: 05:59 mouth two of tablet 00 :00 times Medicin daily for e 90 days. metoprolol 2021- No [id number] 25mg Take 1 [facility] (TOPROL-XL) 8-22 11-21 Tablet by Co llege 25 MG XL 00:00: 05:59 mouth two of tablet 00 :00 times Medicin daily for e 90 days. metoprolol 2021- No [id number] 25mg Take 1 [facility] (TOPROL-XL) 8-22 11-21 Tablet by Co llege 25 MG XL 00:00: 05:59 mouth two of tablet 00 :00 times Medicin daily for e 90 days. metformin Yes 1000mg Take 1,000 [facility] (GLUCOPHAGE 8-16 mg by [place] ) 1000 MG 15:43: mouth 2 of tablet 57 times Medicin daily e (with meals). docusate 0 Yes [id number] 100mg Take 1 [facility] sodium 8-16 capsule by [place] (COLACE) 00:00: mouth of 100 MG 00 daily as Medicin capsule needed for e Constipati on. docusate 0 Yes [id number] 100mg Take 1 [facility] sodium 8-16 capsule by [place] (COLACE) 00:00: mouth of 100 MG 00 daily as Medicin capsule needed for e Constipati on. docusate 0 Yes [id number] 100mg Take 1 [facility] sodium 8-16 capsule by [place] (COLACE) 00:00: mouth of 100 MG 00 daily as Medicin capsule needed for e Constipati on. docusate 2021-0 Yes [id number] 100mg Take 1 [facility] sodium 8-16 capsule by [place] (COLACE) 00:00: mouth of 100 MG 00 daily as Medicin capsule needed for e Constipati on. acetaminoph 2021- No 1{tbl} Take [address] en-codeine 8-08 08-18 tablet by [facility] (Tylenol-Co 00:00: 23:59 mouth Medi jenna deine #3) 00 :00 every 4 Center 300-30 mg (four) per tablet hours as needed for up to 10 days. Max Daily Amount: 6 tablets acetaminoph 2021- No 1{tbl} Take [address] en-codeine 8-08 08-18 tablet by [facility] (Tylenol-Co 00:00: 23:59 mouth Medi jenna deine #3) 00 :00 every 4 Center 300-30 mg (four) per tablet hours as needed for up to 10 days. Max Daily Amount: 6 tablets acetaminoph 2021- No 1{tbl} Take [address] en-codeine 8-08 08-18 tablet by [facility] (Tylenol-Co 00:00: 23:59 mouth Medi jenna deine #3) 00 :00 every 4 Center 300-30 mg (four) per tablet hours as needed for up to 10 days. Max Daily Amount: 6 tablets acetaminoph 2021-2021- No 1{tbl} Take [address] en-codeine 01-08-18 tablet by [facility] (Tylenol-Co 00:00: 23:59 mouth Medi jenna deine #3) 00 :00 every 4 Center 300-30 mg (four) per tablet hours as needed for up to 10 days. Max Daily Amount: 6 tablets acetaminoph 2021-2021- No 1{tbl} Take [address] en-codeine 01-08-18 tablet by [facility] (Tylenol-Co 00:00: 23:59 mouth Medi jenna deine #3) 00 :00 every 4 Center 300-30 mg (four) per tablet hours as needed for up to 10 days. Max Daily Amount: 6 tablets amLODIPine 2021-0 2021- No 10mg QD Take [address] [facility] (NORVASC) 5 7-29 07-29 by mouth [facility] MG tablet 07:14: 00:00 daily. Medic al 28 :00 [facility] losartan 2021-0 2022- No 100mg QD Take [address] [address] (COZAAR) 7-29 07-29 mg by [facility] 100 MG 07:14: 00:00 mouth Medical tablet 28 :00 daily. [facility] amLODIPine 2021-0 2- No 10mg QD Take [address] (NORVASC) 5 7-29 07-29 by mouth [facility] MG tablet 07:14: 00:00 daily. Medic al 28 :00 [facility] losartan 2-0 2022- No 100mg QD Take [address] [facility] (COZAAR) 7-29 07-29 mg by [facility] 100 MG 07:14: 00:00 mouth Medical tablet 28 :00 daily. [facility] amLODIPine 2021-0 2- No 10mg QD Take [address] (NORVASC) 5 7-29 07-29 by mouth [facility] MG tablet 07:14: 00:00 daily. Medic al 28 :00 [facility] losartan 2-0 2022- No 100mg QD Take [address] [address] (COZAAR) 7-29 07-29 mg by [facility] 100 MG 07:14: 00:00 mouth Medical tablet 28 :00 daily. [facility] amLODIPine 2021-0 2022- No 10mg QD Take [address] (NORVASC) 5 7-29 07-29 by mouth [facility] MG tablet 07:14: 00:00 daily. Medic al 28 :00 Center losartan 2021- 202- No 100mg QD Take [address] (COZAAR) 7-29 07-29 mg by [facility] 100 MG 07:14: 00:00 mouth Medical tablet 28 :00 daily. Center amLODIPine 2021- No 10mg QD Take [address] (NORVASC) 5 - 07-29 by mouth [facility] MG tablet 07:14: 00:00 daily. Medic al 28 :00 Center losartan 2021- No 100mg QD Take [address] (COZAAR) 7-29 07-29 mg by [facility] 100 MG 07:14: 00:00 mouth Medical tablet 28 :00 daily. Center budesonide 2022- No .5mg Q.5D Take [address] (PULMICORT) 12-29- (0.5 mg Luke s 0.5 mg/2 mL 00:00: 23:59 total) by Medical nebulizer 00 :00 nebuliz[address] Cent er solution on 2 (two) times daily. cetirizine 2021-2022- No 10mg QD Take [address] [facility] (ZyrTEC) 10 -29 12- tablet (10 L [facility] MG tablet 00:00: 23:59 mg total) Me dical 00 :00 by mouth Center daily. budesonide 2021-2022- No .5mg Q.5D Take [address] (PULMICORT) 12-29- (0.5 mg Luke s 0.5 mg/2 mL 00:00: 23:59 total) by Medical nebulizer 00 :00 nebulizati Cent er solution on 2 (two) times daily. cetirizine 2021-2022- No 10mg QD Take [address] [facility] (ZyrTEC) 10 -29 12-29 tablet (10 [facility] tablet 00:00: 23:59 mg total) Me dical 00 :00 by mouth Center daily. budesonide 2021- 202- No .5mg Q.5D Take [address] [facility] (PULMICORT) -29 12-29 (0.5 mg Luke s 0.5 mg/2 mL 00:00: 23:59 total) by Medical nebulizer 00 :[address] [facility] er solution on 2 (two) times daily. cetirizine 2021-0 2022- No 10mg QD Take [address] [facility] (ZyrTEC) 10 -29 12- tablet (10 [facility] MG tablet 00:00: 23:59 mg total) Me dical 00 :00 by mouth Center daily. budesonide 2021-0 2023- No .5mg Q.5D Take [address] [facility] (PULMICORT) 12-29- (0.5 mg Luke s 0.5 mg/2 mL 00:00: 23:59 total) by Medical nebulizer 00 :[address] er solution on 2 (two) times daily. cetirizine 2021-0 2022- No 10mg QD Take [address] [facility] (ZyrTEC) 10 12-29- tablet (10 [facility] MG tablet 00:00: 23:59 mg total) Me dical 00 :00 by mouth Center daily. budesonide 2021-0 2022- No .5mg Q.5D Take [address] [facility] (PULMICORT) 12-29- (0.5 mg Luke s 0.5 mg/2 mL 00:00: 23:59 total) by Medical nebulizer 00 :[address] er solution on 2 (two) times daily. cetirizine 2021-0 2022- No 10mg QD Take [address] [facility] (ZyrTEC) 10 12-29- tablet (10 [facility] tablet 00:00: 23:59 mg total) Me dical 00 :00 by mouth Center daily. losartan 2021-0 2022- No 25mg QD Take [address] [facility] (COZAAR) 25 - 10-27 tablet (25 [facility] MG tablet 00:00: 23:59 mg total) Me dical 00 :00 by mouth Center daily for 90 days. metoprolol 2021-0 2022- No 25mg QD Take [address] [facility] succinate - 10-27 tablet (25 [facility] (TOPROL-XL) 00:00: 23:59 mg total) Medical 25 MG 24 hr 00 :00 by mouth Cent er tablet daily for 90 days. losartan 2021- No 25mg QD Take [address] [facility] (COZAAR) 25 7-29 10-27 tablet (25 [facility] MG tablet 00:00: 23:59 mg total) Me dical 00 :00 by mouth Center daily for 90 days. metoprolol 2021- No 25mg QD Take [address] [facility] succinate 7-29 10-27 tablet (25 [facility] (TOPROL-XL) 00:00: 23:59 mg total) Medical 25 MG 24 hr 00 :00 by mouth Cent er tablet daily for 90 days. losartan 2021- No 25mg QD Take [address] [facility] (COZAAR) 25 7-29 10-27 tablet (25 [facility] MG tablet 00:00: 23:59 mg total) Me dical 00 :00 by mouth Center daily for 90 days. metoprolol 2021- No 25mg QD Take [address] [facility] succinate 7-29 10-27 tablet (25 [facility] (TOPROL-XL) 00:00: 23:59 mg total) Medical 25 MG 24 hr 00 :00 by mouth Cent er tablet daily for 90 days. losartan 2021- No 25mg QD Take [address] [facility] (COZAAR) 25 7-29 10-27 tablet (25 [facility] MG tablet 00:00: 23:59 mg total) Me dical 00 :00 by mouth Center daily for 90 days. metoprolol 2021- No 25mg QD Take [address] [facility] succinate 7-29 10-27 tablet (25 [facility] (TOPROL-XL) 00:00: 23:59 mg total) Medical 25 MG 24 hr 00 :00 by mouth Cent er tablet daily for 90 days. losartan 2021- No 25mg QD Take [address] [facility] (COZAAR) 25 7-29 10-27 tablet (25 [facility] MG tablet 00:00: 23:59 mg total) Me dical 00 :00 by mouth Center daily for 90 days. metoprolol 2021- No 25mg QD Take [address] [facility] succinate 7-29 10-27 tablet (25 [facility] (TOPROL-XL) 00:00: 23:59 mg total) Medical 25 MG 24 hr 00 :00 by mouth Cent er tablet daily for 90 days. ipratropium 2022-0 2022- No .5mg Take 2.[address] [facility] (ATROVENT) 12-29-28 mLs (0.5 [facility] 0.02 % 00:00: 23:59 mg total) Medic al nebulizer 00 :00 by Center solution nebulizati on every 6 (six) hours for 30 days. levalbutero 2022-0 2022- No 1.25mg Take [address] [facility] (XOPENEX) 12-29- (1.25 mg [facility] 1.25 mg/3 00:00: 23:59 total) by Me dical mL 00 :00 nebulizati Center nebulizer on every 6 solution (six) hours for 30 days. potassium 2022-0 2022- No 20meq QD Take [address] [facility] chloride SA 12-29 tablet (20 [facility] (K-DUR,KLOR 00:00: 23:59 mEq total) Medical -CON-M) 20 00 :00 by mouth Cente r MEQ tablet daily for 30 days. ipratropium 2022-0 2022- No .5mg Take 2.[address] [facility] (ATROVENT) 12-29- mLs (0.5 [facility] 0.02 % 00:00: 23:59 mg total) Medic al nebulizer 00 :00 by Center solution nebulizati on every 6 (six) hours for 30 days. levalbutero 2022-0 2022- No 1.25mg Take [address] [facility] (XOPENEX) 12-29 (1.25 mg [facility] 1.25 mg/3 00:00: 23:59 total) by Me dical mL 00 :00 nebulizati Center nebulizer on every 6 solution (six) hours for 30 days. potassium 2022-0 2022- No 20meq QD Take [address] [facility] chloride SA 12-29- tablet (20 [facility] (K-DUR,KLOR 00:00: 23:59 mEq total) Medical -CON-M) 20 00 :00 by mouth Cente r MEQ tablet daily for 30 days. ipratropium 2022-0 2022- No .5mg Take 2.[address] [facility] (ATROVENT) 12-29-28 mLs (0.5 [facility] 0.02 % 00:00: 23:59 mg total) Medic al nebulizer 00 :00 by Center solution nebulizati on every 6 (six) hours for 30 days. levalbutero 2022-0 2022- No 1.25mg Take [address] [facility] (XOPENEX) 12-29-28 (1.25 mg [facility] 1.25 mg/3 00:00: 23:59 total) by Me dical mL 00 :00 nebulizati Center nebulizer on every 6 solution (six) hours for 30 days. potassium 2022-0 2022- No 20meq QD Take [address] [facility] chloride SA 12-29- tablet (20 [facility] (K-DUR,KLOR 00:00: 23:59 mEq total) Medical -CON-M) 20 00 :00 by mouth Cente r MEQ tablet daily for 30 days. ipratropium 2022-0 2022- No .5mg Take 2.[address] [facility] (ATROVENT) 12-29-28 mLs (0.5 [facility] 0.02 % 00:00: 23:59 mg total) Medic al nebulizer 00 :00 by Center solution nebulizati on every 6 (six) hours for 30 days. levalbutero 2022-0 2022- No 1.25mg Take [address] [facility] (XOPENEX) 12-29- (1.25 mg [facility] 1.25 mg/3 00:00: 23:59 total) by Me dical mL 00 :00 nebulizati Center nebulizer on every 6 solution (six) hours for 30 days. potassium 2022-0 2022- No 20meq QD Take [address] [facility] chloride SA 12-29-28 tablet (20 [facility] (K-DUR,KLOR 00:00: 23:59 mEq total) Medical -CON-M) 20 00 :00 by mouth Cente r MEQ tablet daily for 30 days. ipratropium 2022-0 2022- No .5mg Take 2.[address] [facility] (ATROVENT) 12-29-28 mLs (0.5 [facility] 0.02 % 00:00: 23:59 mg total) Medic al nebulizer 00 :00 by Center solution nebulizati on every 6 (six) hours for 30 days. levalbutero No 1.25mg Take [address] [facility] (XOPENEX) 12-29 (1.25 mg [facility] 1.25 mg/3 00:00: 23:59 total) by Me dical mL 00 :00 nebulizati Center nebulizer on every 6 solution (six) hours for 30 days. potassium 2021- No 20meq QD Take [address] [facility] chloride SA 12-29 tablet (20 [facility] (K-DUR,KLOR 00:00: 23:59 mEq total) Medical -CON-M) 20 00 :00 by mouth Cente r MEQ tablet daily for 30 days. furosemide 2021- No Take [address] [facility] (LASIX) 40 12-29 tablet (40 [facility] MG tablet 00:00: 23:59 mg total) Me dical 00 :00 by mouth Center daily for 7 days, THEN 0.5 tablets (20 mg total) daily for 22 days. furosemide 2021- No Take [address] [facility] (LASIX) 40 12-29 tablet (40 [facility] MG tablet 00:00: 23:59 mg total) Me dical 00 :00 by mouth Center daily for 7 days, THEN 0.5 tablets (20 mg total) daily for 22 days. furosemide 2021- No Take [address] [facility] (LASIX) 40 12-29 tablet (40 [facility] MG tablet 00:00: 23:59 mg total) Me dical 00 :00 by mouth Center daily for 7 days, THEN 0.5 tablets (20 mg total) daily for 22 days. furosemide 2021- No Take [address] [facility] (LASIX) 40 12-29- tablet (40 [facility] k[facility] MG tablet 00:00: 23:59 mg total) Me dical 00 :00 by mouth Center daily for 7 days, THEN 0.5 tablets (20 mg total) daily for 22 days. furosemide 2021- No Take [address] [facility] (LASIX) 40 12-29- tablet (40 [facility] k[facility] MG tablet 00:00: 23:59 mg total) Me dical 00 :00 by mouth Center daily for 7 days, THEN 0.5 tablets (20 mg total) daily for 22 days. docusate 2021- No 100mg Q.5D Take 1 [facility] -29 01- [facility] (COLACE) 00:00: 23:59 (100 mg Medic al 100 MG 00 :00 total) by Center capsule mouth 2 (two) times daily for 10 days. acetaminoph 2021- No 1{tbl} Take [address] [facility] en-codeine 7-29 01-08 tablet by Rex velez (Tylenol-Co 00:00: 00:00 mouth Medi jenna deine #3) 00 :00 every 4 Center 300-30 mg (four) per tablet hours as needed for up to 10 days. Max Daily Amount: 6 tablets HYDROcodone 2021- No 1{tbl} Take [address] [facility] -acetaminop 7-29 01-08 tablet by Mariel paige (NORCO 00:00: 23:59 mouth Medic al 5-325) 00 :00 every 6 Center 5-325 mg (six) per tablet hours as needed for up to 10 days. Max Daily Amount: 4 tablets docusate 2021- No 100mg Q.5D Take 1 [facility] -29 01- [facility] (COLACE) 00:00: 23:59 (100 mg Medic al 100 MG 00 :00 total) by Center capsule mouth 2 (two) times daily for 10 days. acetaminoph 2021- No 1{tbl} Take [address] [facility] en-codeine -29 01-08 tablet by Rex velez (Tylenol-Co 00:00: 00:00 mouth Medi jenna deine #3) 00 :00 every 4 Center 300-30 mg (four) per tablet hours as needed for up to 10 days. Max Daily Amount: 6 tablets HYDROcodone 2021- No 1{tbl} Take [address] [facility] -acetaminop 7-29 01-08 tablet by Mariel paige (NORCO 00:00: 23:59 mouth Medic al 5-325) 00 :00 every 6 Center 5-325 mg (six) per tablet hours as needed for up to 10 days. Max Daily Amount: 4 tablets docusate 2021-0 2- No 100mg Q.5D Take 1 [facility] sodium 7-29 08-08 [facility] (COLACE) 00:00: 23:59 (100 mg Medic al 100 MG 00 :00 total) by Center capsule mouth 2 (two) times daily for 10 days. acetaminoph 2021-2021- No 1{tbl} Take [address] en-codeine 7-29 08-08 tablet by Rex velez (Tylenol-Co 00:00: 00:00 mouth Medi jenna deine #3) 00 :00 every 4 Center 300-30 mg (four) per tablet hours as needed for up to 10 days. Max Daily Amount: 6 tablets HYDROcodone 2021-2021- No 1{tbl} Take [address] -acetaminop 7-29 08-08 tablet by Mariel paige (NORCO 00:00: 23:59 mouth Medic al 5-325) 00 :00 every 6 Center 5-325 mg (six) per tablet hours as needed for up to 10 days. Max Daily Amount: 4 tablets docusate 2021-0 2021- No 100mg Q.5D Take 1 [facility] 7-29 08-08 [facility] (COLACE) 00:00: 23:59 (100 mg Medic al 100 MG 00 :00 total) by Center capsule mouth 2 (two) times daily for 10 days. acetaminoph 2021- No 1{tbl} Take [address] en-codeine 7-29 08-08 tablet by Rex velez (Tylenol-Co 00:00: 00:00 mouth Medi jenna deine #3) 00 :00 every 4 Center 300-30 mg (four) per tablet hours as needed for up to 10 days. Max Daily Amount: 6 tablets HYDROcodone 2021-0 2021- No 1{tbl} Take [address] [facility] -acetaminop 7-29 08-08 tablet by Mariel paige (NORCO 00:00: 23:59 mouth Medic al 5-325) 00 :00 every 6 Center 5-325 mg (six) per tablet hours as needed for up to 10 days. Max Daily Amount: 4 tablets docusate 2021-0 2022- No 100mg Q.5D Take 1 [facility] 7-29 08-08 [facility] (COLACE) 00:00: 23:59 (100 mg Medic al 100 MG 00 :00 total) by Center capsule mouth 2 (two) times daily for 10 days. acetaminoph 2021- No 1{tbl} Take [address] en-codeine 12-29 tablet by Rex velez (Tylenol-Co 00:00: 00:00 mouth Medi jenna deine #3) 00 :00 every 4 Center 300-30 mg (four) per tablet hours as needed for up to 10 days. Max Daily Amount: 6 tablets HYDROcodone 2021- No 1{tbl} Take [address] -acetaminop 12-29 tablet by Mariel paige (NORCO 00:00: 23:59 mouth Medic al 5-325) 00 :00 every 6 Center 5-325 mg (six) per tablet hours as needed for up to 10 days. Max Daily Amount: 4 tablets metformin Yes 1000mg Take 1,000 [facility] (GLUCOPHAGE 7-05 mg by [place] ) 1000 MG 15:16: mouth 2 of tablet 03 times Medicin daily e (with meals). Temozolomid Yes TAKE ONE [facility] 140 MG 6-24 (1) College CAPS 00:00: CAPSULE(S) of 00 BY MOUTH Medicin DAILY AT e BEDTIME STARTING THE NIGHT PRIOR TO RADIATION FOR 21 DAYS. SAVE THE REMAINING CAPSULES FOR MAINTENANC E REGIMEN. Temozolomid Yes TAKE ONE [facility] 140 MG 6-24 (1) College CAPS 00:00: CAPSULE(S) of 00 BY MOUTH Medicin DAILY AT e BEDTIME STARTING THE NIGHT PRIOR TO RADIATION FOR 21 DAYS. SAVE THE REMAINING CAPSULES FOR MAINTENANC E REGIMEN. Temozolomid 0 2021- No TAKE ONE [facility] 140 MG 6-24 -27 (1) College CAPS 00:00: 00:00 CAPSULE(S) of 00 :00 BY MOUTH Medicin DAILY AT e BEDTIME STARTING THE NIGHT PRIOR TO RADIATION FOR 21 DAYS. SAVE THE REMAINING CAPSULES FOR MAINTENANC E REGIMEN. Sennosides- Yes [id number] 1{tbl} Take 1 [facility] Docusate 6-22 Tablet by Nikita mcknight Sodium 00:00: mouth of (SENNA-DOCU 00 daily. Medici n SATE e SODIUM) 8.6-50 MG TABS polyethylen Yes [id number] 17g Take 17 g [facility] e glycol 6-22 by mouth College (GLYCOLAX) 00:00: daily as of 17 GM/SCOOP 00 needed Medici n powder (constipat e ion). hydrocortis Yes Apply once [facility] one 2.5 % 6-22 or twice Colleg e cream 00:00: daily to of affected Medicin areas e Sennosides- 0 Yes [id number] 1{tbl} Take 1 [facility] Docusate 6-22 Tablet by Colleg e Sodium 00:00: mouth of (SENNA-DOCU 00 daily. Medici n SATE e SODIUM) 8.6-50 MG TABS hydrocortis Yes Apply once [facility] one 2.5 % 6-22 or twice Colleg e cream 00:00: daily to of affected Medicin areas e Sennosides- 0 Yes [id number] 1{tbl} Take 1 [facility] Docusate 6-22 Tablet by Colleg e Sodium 00:00: mouth of (SENNA-DOCU 00 daily. Medici n SATE e SODIUM) 8.6-50 MG TABS hydrocortis Yes Apply once [facility] one 2.5 % 6-22 or twice Colleg e cream 00:00: daily to of affected Medicin areas e Sennosides- 0 Yes [id number] 1{tbl} Take 1 [facility] Docusate 6-22 Tablet by Colleg e Sodium 00:00: mouth of (SENNA-DOCU 00 daily. Medici n SATE e SODIUM) 8.6-50 MG TABS hydrocortis Yes Apply once [facility] one 2.5 % 6-22 or twice Colleg e cream 00:00: daily to of affected Medicin areas e Sennosides- 0 Yes [id number] 1{tbl} Take 1 [facility] Docusate 6-22 Tablet by Colleg e Sodium 00:00: mouth of (SENNA-DOCU 00 daily. Medici n SATE e SODIUM) 8.6-50 MG TABS hydrocortis Yes Apply once [facility] one 2.5 % 11-22 or twice Colleg e cream 00:00: daily to of 00 affected Medicin areas e polyethylen 2021- No [id number] 17g Take 17 g [facility] e glycol 11-22 08-30 by mouth Colleg e (GLYCOLAX) 00:00: 00:00 daily as of 17 GM/SCOOP 00 :00 needed Medici n powder (constipat e ion). gabapentin 2021-0 Yes 100mg Take 1 [facility] (NEURONTIN) 6-15 capsule by Co llege 100 MG 00:00: mouth 4 of capsule 00 times Medicin daily as e needed for Other (headache) . meclizine 2021-0 Yes 25mg Take 1 [facility] (ANTIVERT) 6-15 Tablet by [facility] 25 MG 00:00: mouth 3 of tablet 00 times Medicin daily as e needed. gabapentin 2021-0 Yes 100mg Take 1 [facility] (NEURONTIN) 6-15 capsule by Co llege 100 MG 00:00: mouth 4 of capsule 00 times Medicin daily as e needed for Other (headache) . meclizine 2021-0 Yes 25mg Take 1 [facility] (ANTIVERT) 6-15 Tablet by [facility] 25 MG 00:00: mouth 3 of tablet 00 times Medicin daily as e needed. gabapentin 2021-0 Yes 100mg Take 1 [facility] (NEURONTIN) 6-15 capsule by Co llege 100 MG 00:00: mouth 4 of capsule 00 times Medicin daily as e needed for Other (headache) . meclizine 2022-0 Yes 25mg Take 1 [facility] (ANTIVERT) 6-15 Tablet by [facility] e[facility] 25 MG 00:00: mouth 3 of tablet 00 times Medicin daily as e needed. gabapentin 2022-0 Yes 100mg Take 1 [facility] (NEURONTIN) 6-15 capsule by Co llege 100 MG 00:00: mouth 4 of capsule 00 times Medicin daily as e needed for Other (headache) . meclizine 2022-0 Yes 25mg Take 1 [facility] (ANTIVERT) 6-15 Tablet by [facility] 25 MG 00:00: mouth 3 of tablet 00 times Medicin daily as e needed. gabapentin 2022-0 Yes 100mg Take 1 [facility] (NEURONTIN) 6-15 capsule by Co llege 100 MG 00:00: mouth 4 of capsule 00 times Medicin daily as e needed for Other (headache) . meclizine 2021-0 Yes 25mg Take 1 [facility] (ANTIVERT) 6-15 Tablet by [facility] 25 MG 00:00: mouth 3 of tablet 00 times Medicin daily as e needed. gabapentin 2021-0 Yes 100mg Take 1 [facility] (NEURONTIN) 6-15 capsule by Co llege 100 MG 00:00: mouth 4 of capsule 00 times Medicin daily as e needed for Other (headache) . meclizine 0 Yes 25mg Take 1 [facility] (ANTIVERT) 6-15 Tablet by [facility] ege 25 MG 00:00: mouth 3 of tablet 00 times Medicin daily as e needed. Sennosides- Yes [id number] 1{tbl} Take 1 [facility] Docusate 6-15 Tablet by Colleg e Sodium 00:00: mouth of (SENNA-DOCU 00 daily. Medici n SATE e SODIUM) 8.6-50 MG TABS Temozolomid 0 Yes Take 140mg [place] [facility] 140 MG 6-13 nightly College CAPS 00:00: for 21 of 00 days Medicin starting e the night prior to start of radiation Sennosides- 2021-0 2022- No [id number] 1{tbl} Take 1 [facility] Docusate 6-13 06-15 Tablet by Colle ge Sodium 00:00: 00:00 mouth of (SENNA-DOCU 00 :00 daily. Medici n SATE e SODIUM) 8.6-50 MG TABS ondansetron 0 Yes [id number] 4mg Take 1 [facility] (ZOFRAN-ODT 6-01 Tablet by Col lege ) 4 mg 00:00: mouth of disintegrat 00 every 6 Medic in ing tablet hours as e needed for Nausea. ondansetron 0 Yes [id number] 4mg Take 1 [facility] (ZOFRAN-ODT 6-01 Tablet by Col lege ) 4 mg 00:00: mouth of disintegrat 00 every 6 Medic in ing tablet hours as e needed for Nausea. ondansetron 2021-0 Yes [id number] 4mg Take 1 [facility] (ZOFRAN-ODT 6-01 Tablet by Col lege ) 4 mg 00:00: mouth of disintegrat 00 every 6 Medic in ing tablet hours as e needed for Nausea. Temozolomid 0 Yes Take 140mg [facility] e 140 MG 6-01 nightly College CAPS 00:00: for 21 of 00 days Medicin starting e the night prior to start of radiation Sennosides- 0 Yes [id number] 1{tbl} Take 1 [facility] Docusate 6-01 Tablet by Colleg e Sodium 00:00: mouth of (SENNA-DOCU 00 daily. Medici n SATE e SODIUM) 8.6-50 MG TABS ondansetron 0 Yes [id number] 4mg Take 1 [facility] (ZOFRAN-ODT 6-01 Tablet by Col lege ) 4 mg 00:00: mouth of disintegrat 00 every 6 Medic in ing tablet hours as e needed for Nausea. polyethylen 0 Yes [id number] 17g Take 17 g [facility] e glycol 6-01 by mouth [place] (GLYCOLAX) 00:00: daily as of 17 GM/SCOOP 00 needed Medici n powder (constipat e ion). ondansetron 0 Yes [id number] 4mg Take 1 [facility] (ZOFRAN-ODT 6-01 Tablet by Col lege ) 4 mg 00:00: mouth of disintegrat 00 every 6 Medic in ing tablet hours as e needed for Nausea. polyethylen 0 Yes [id number] 17g Take 17 g [facility] e glycol 6-01 by mouth [place] (GLYCOLAX) 00:00: daily as of 17 GM/SCOOP 00 needed Medici n powder (constipat e ion). ondansetron 0 2021- No [id number] 4mg Take 1 [facility] (ZOFRAN-ODT 6-01 10-04 Tablet by Co ericegjuan luis ) 4 mg 00:00: 00:00 mouth of disintegrat 00 :00 every 6 Medic in ing tablet hours as e needed for Nausea. metformin 0 Yes 1000mg Take 1,000 [facility] (GLUCOPHAGE 5-31 mg by [place] ) 1000 MG 12:19: mouth 2 of tablet 11 times Medicin daily e (with meals). metformin 0 Yes 1000mg Take 1,000 [facility] (GLUCOPHAGE 5-31 mg by [place] ) 1000 MG 12:19: mouth 2 of tablet 11 times Medicin daily e (with meals). butalbital- Yes 1{tbl} Take 1 [facility] acetaminoph 5-25 Tablet by Col lege en-caffeine 00:00: mouth of (FIORICET, 00 every 6 Medici n ESGIC) hours as e 50-325-40 needed for MG per Headaches. tablet butalbital- Yes 1{tbl} Take 1 [facility] acetaminoph 5-25 Tablet by Col lege en-caffeine 00:00: mouth of (FIORICET, 00 every 6 Medici n ESGIC) hours as e 50-325-40 needed for MG per Headaches. tablet butalbital- Yes 1{tbl} Take 1 [facility] acetaminoph 5-25 Tablet by Col lege en-caffeine 00:00: mouth of (FIORICET, 00 every 6 Medici n ESGIC) hours as e 50-325-40 needed for MG per Headaches. tablet butalbital- Yes 1{tbl} Take 1 [facility] acetaminoph 5-25 Tablet by Col lege en-caffeine 00:00: mouth of (FIORICET, 00 every 6 Medici n ESGIC) hours as e 50-325-40 needed for MG per Headaches. tablet butalbital- 2021- No 1{tbl} Take 1 [facility] acetaminoph 5-25 09-27 Tablet by Co llege en-caffeine 00:00: 00:00 mouth of (FIORICET, 00 :00 every 6 Medici n ESGIC) hours as e 50-325-40 needed for MG per Headaches. tablet aspirin 81 2021-0 Yes 81mg QD [facility] 1 [facility] chewable 5-24 tablet (81 Mariel kes tablet 00:00: mg total) Medica l 00 by mouth Center daily. aspirin 81 2021-0 Yes 81mg QD Take 1 [facility] MG chewable 5-24 tablet (81 Mariel kes tablet 00:00: mg total) Medica l 00 by mouth Center daily. aspirin 81 2021-0 Yes 81mg QD Take 1 [facility] MG chewable 5-24 tablet (81 Mariel kes tablet 00:00: mg total) Medica l 00 by mouth Center daily. aspirin 81 2021-0 Yes 81mg QD Take 1 [facility] MG chewable 5-24 tablet (81 Mariel kes tablet 00:00: mg total) Medica l 00 by mouth Center daily. aspirin 81 2021-0 Yes 81mg QD Take 1 [facility] MG chewable 5-24 tablet (81 [facility] kes tablet 00:00: mg total) Medica l 00 by mouth Center daily. carvediloL 2021- No 6.25mg Q.5D Take [address] [facility] [address] [facility] (COREG) 10-23- tablet [facility] 6.[facility] MG 00:00: 00:00 (6.25 mg Medic al tablet 00 :00 total) by Center mouth 2 (two) times daily If your blood pressure top number (systolic) is still greater than 140 after taking your regular dosage (1 tab), take 2 tablets (12.5mg) at your next dose. carvediloL 2021- No 6.25mg Q.5D Take [address] [facility] [address] [facility] (COREG) 10-23- tablet [facility] 6.25 MG 00:00: 00:00 (6.25 mg Medic al tablet 00 :00 total) by Center mouth 2 (two) times daily If your blood pressure top number (systolic) is still greater than 140 after taking your regular dosage (1 tab), take 2 tablets (12.5mg) at your next dose. carvediloL 2021- No 6.25mg Q.5D Take [address] [facility] [address] [facility] (COREG) 10-23- tablet [facility] 6.25 MG 00:00: 00:00 (6.25 mg Medic al tablet 00 :00 total) by Center mouth 2 (two) times daily If your blood pressure top number (systolic) is still greater than 140 after taking your regular dosage (1 tab), take 2 tablets (12.5mg) at your next dose. carvediloL 2021- No 6.25mg Q.5D Take [address] [facility] [address] [facility] (COREG) 10-23- tablet [facility] 6.25 MG 00:00: 00:00 (6.25 mg Medic al tablet 00 :00 total) by Center mouth 2 (two) times daily If your blood pressure top number (systolic) is still greater than 140 after taking your regular dosage (1 tab), take 2 tablets (12.5mg) at your next dose. carvediloL 2021- No 6.25mg Q.5D Take [address] [facility] [address] [facility] (COREG) 10-23 tablet [facility] 6.25 MG 00:00: 00:00 (6.25 mg Medic al tablet 00 :00 total) by Center mouth 2 (two) times daily If your blood pressure top number (systolic) is still greater than 140 after taking your regular dosage (1 tab), take 2 tablets (12.5mg) at your next dose. docusate 2021-2021- No 100mg Take 1 [facility] 10-23- [facility] (COLACE) 00:00: 23:59 (100 mg Medic al 100 MG 00 :00 total) by Center capsule mouth 2 (two) times daily as needed for Constipati on for up to 10 days. docusate 2021-0 2021- No 100mg Take 1 [facility] 10-23- [facility] (COLACE) 00:00: 23:59 (100 mg Medic al 100 MG 00 :00 total) by Center capsule mouth 2 (two) times daily as needed for Constipati on for up to 10 days. docusate 2021-0 2021- No 100mg Take 1 [facility] sodium 10-23-02 [facility] (COLACE) 00:00: 23:59 (100 mg Medic al 100 MG 00 :00 total) by Center capsule mouth 2 (two) times daily as needed for Constipati on for up to 10 days. docusate 2021-0 2021- No 100mg Take 1 [facility] sodium 10-23-02 [facility] (COLACE) 00:00: 23:59 (100 mg Medic al 100 MG 00 :00 total) by Center capsule mouth 2 (two) times daily as needed for Constipati on for up to 10 days. docusate 2021-0 2- No 100mg Take 1 [facility] sodium 10-23-02 [facility] (COLACE) 00:00: 23:59 (100 mg Medic al 100 MG 00 :00 total) by Center capsule mouth 2 (two) times daily as needed for Constipati on for up to 10 days. acetaminoph 2021- No 1{tbl} Take [address] [facility] en-codeine 5-23 05-30 tablet by [facility] (TYLENOL 00:00: 23:59 mouth Medical #3) 300-30 00 :00 every 8 Center mg per (eight) tablet hours as needed for up to 7 days. Max Daily Amount: 3 tablets acetaminoph 2021- No 1{tbl} Take [address] en-codeine 5-23 05-30 tablet by Rex es (TYLENOL 00:00: 23:59 mouth Medical #3) 300-30 00 :00 every 8 Center mg per (eight) tablet hours as needed for up to 7 days. Max Daily Amount: 3 tablets acetaminoph 2021- No 1{tbl} Take [address] en-codeine 5-23 05-30 tablet by [facility] (TYLENOL 00:00: 23:59 mouth Medical #3) 300-30 00 :00 every 8 Center mg per (eight) tablet hours as needed for up to 7 days. Max Daily Amount: 3 tablets acetaminoph 2021- No 1{tbl} Take [address] en-codeine 5-23 05-30 tablet by [facility] (TYLENOL 00:00: 23:59 mouth Medical #3) 300-30 00 :00 every 8 Center mg per (eight) tablet hours as needed for up to 7 days. Max Daily Amount: 3 tablets acetaminoph 2021- No 1{tbl} Take [address] en-codeine 5-23 05-30 tablet by Rex [facility] (TYLENOL 00:00: 23:59 mouth Medical #3) 300-30 00 :00 every 8 Center mg per (eight) tablet hours as needed for up to 7 days. Max Daily Amount: 3 tablets aspirin EC 2021-2022- No 81mg Take 81 mg [facility] 81 MG 10-06-07 by [facility] tablet 00:00: 04:59 daily. of 00 :00 Medicin e aspirin EC 2021-2022- No 81mg Take 81 mg [facility] 81 MG 5-06 05-07 by mouth [facility] tablet 00:00: 04:59 daily. of 00 :00 Medicin e aspirin EC 2022-0 2023- No 81mg Take 81 mg [facility] 81 MG 5- 05-07 by mouth [facility] tablet 00:00: 04:59 daily. of 00 :00 Medicin e aspirin EC 2022-0 2023- No 81mg Take 81 mg [facility] 81 MG 5- 05-07 by mouth [facility] tablet 00:00: 04:59 daily. of 00 :00 Medicin e aspirin EC 2022-0 2023- No 81mg Take 81 mg [facility] 81 MG 5- 05-07 by mouth [facility] tablet 00:00: 04:59 daily. of 00 :00 Medicin e aspirin EC 2022-0 2023- No 81mg Take 81 mg [facility] 81 MG 5- 05-07 by mouth [facility] tablet 00:00: 04:59 daily. of 00 :00 Medicin e aspirin EC 2022-0 2023- No 81mg Take 81 mg [facility] 81 MG 10-06 05-07 by mouth [facility] tablet 00:00: 04:59 daily. of 00 :00 Medicin e aspirin 81 2022-0 2022- No 81mg QD Take [address] [facility] chewable 5-06 05-23 tablet (81 [facility] tablet 00:00: 00:00 mg total) Medic al 00 :00 by mouth Center daily. aspirin 81 2022-0 2022- No 81mg QD Take [address] [facility] MG chewable 5-06 05-23 tablet (81 [facility] tablet 00:00: 00:00 mg total) Medic al 00 :00 by mouth Center daily. aspirin 81 2022-0 2022- No 81mg QD Take [address] [facility] MG chewable 5-06 05-23 tablet (81 [facility] tablet 00:00: 00:00 mg total) Medic al 00 :00 by mouth Center daily. aspirin 81 2022-0 2022- No 81mg QD Take [address] [facility] MG chewable 5-06 05-23 tablet (81 [facility] tablet 00:00: 00:00 mg total) Medic al 00 :00 by mouth Center daily. aspirin 81 2022-0 2022- No 81mg QD Take [address] [facility] MG chewable 5-06 05-23 tablet (81 [facility] tablet 00:00: 00:00 mg total) Medic al 00 :00 by mouth Center daily. nicotine 2021- No 1{patch QD Place [address] [facility] (NICODERM 5-06 05-16 } patch onto [facility] CQ) 14 00:00: 00:00 the skin Medica l mg/24 hr 00 :00 daily for Center patch 30 days. nicotine 2021- No 1{patch QD Place [address] [facility] (NICODERM 5-06 05-16 } patch onto [facility] CQ) 14 00:00: 00:00 the skin Medica l mg/24 hr 00 :00 daily for Center patch 30 days. nicotine 2021- No 1{patch QD Place [address] [facility] (NICODERM 5-06 05-16 } patch onto [facility] CQ) 14 00:00: 00:00 the skin Medica l mg/24 hr 00 :00 daily for Center patch 30 days. nicotine 2021- No 1{patch QD Place [address] [facility] (NICODERM 5-06 05-16 } patch onto [facility] ) 14 00:00: 00:00 the skin Medica l mg/24 hr 00 :00 daily for Center patch 30 days. nicotine 2021- No 1{patch QD Place [address] [facility] (NICODERM 5-06 05-16 } patch onto [facility] CQ) 14 00:00: 00:00 the skin Medica l mg/24 hr 00 :00 daily for Center patch 30 days. atorvastati 2021- No 40mg QD Take [address] [facility] (LIPITOR) 5-05 05-05 by mouth [facility] 40 MG 16:18: 00:00 daily. Medical tablet 12 :00 Center atorvastati 2021- No 40mg QD Take [address] [facility] (LIPITOR) 5-05 05-05 by mouth [facility] 40 MG 16:18: 00:00 daily. Medical tablet 12 :00 Center atorvastati 2021- No 40mg QD Take [address] [facility] (LIPITOR) 5-05 05-05 by mouth [facility] 40 MG 16:18: 00:00 daily. Medical tablet 12 :00 Center atorvastati 2021- No 40mg QD Take [address] [facility] (LIPITOR) 5-05 05-05 by mouth [facility] 40 MG 16:18: 00:00 daily. Medical tablet 12 :00 Center atorvastati 2021- No 40mg QD Take [address] [facility] (LIPITOR) 5-05 05-05 by mouth [facility] 40 MG 16:18: 00:00 daily. Medical tablet 12 :00 Center metoprolol 2021- No 100mg Q.5D Take [address] tartrate 5-05 05-05 mg by [facility] (LOPRESSOR) 15:56: 00:00 mouth 2 Me dical 100 MG 07 :00 (two) Center tablet times daily. metoprolol 2021-2021- No 100mg Q.5D Take [address] tartrate 5-05 05-05 mg [facility] (LOPRESSOR) 15:56: 00:00 mouth 2 Me dical 100 MG 07 :00 (two) Center tablet times daily. metoprolol 2021- No 100mg Q.5D Take [address] tartrate 5-05 05-05 mg [facility] (LOPRESSOR) 15:56: 00:00 mouth 2 Me dical 100 MG 07 :00 (two) Center tablet times daily. metoprolol 2021- No 100mg Q.5D Take [address] tartrate 5-05 05-05 mg [facility] (LOPRESSOR) 15:56: 00:00 mouth 2 Me dical 100 MG 07 :00 (two) Center tablet times daily. metoprolol 2021- No 100mg Q.5D Take [address] tartrate 5-05 05-05 mg [facility] (LOPRESSOR) 15:56: 00:00 mouth 2 Me dical 100 MG 07 :00 (two) Center tablet times daily. atorvastati Yes 40mg QD Take [address] [facility] (LIPITOR) 5-05 tablet (40 [facility] 40 MG 00:00: mg total) Medical tablet 00 by mouth Center daily. atorvastati 2021-0 Yes 40mg QD Take [address] [facility] n (LIPITOR) 5-05 tablet (40 [facility] 40 MG 00:00: mg total) Medical tablet 00 by mouth Center daily. atorvastati 2021-0 Yes 40mg QD Take [address] [facility] n (LIPITOR) 5-05 tablet (40 [facility] 40 MG 00:00: mg total) Medical tablet 00 by mouth Center daily. atorvastati 2021-0 Yes 40mg QD Take [address] [facility] n (LIPITOR) 5-05 tablet (40 [facility] 40 MG 00:00: mg total) Medical tablet 00 by mouth Center daily. atorvastati 2021-0 Yes 40mg QD Take [address] [facility] (LIPITOR) 5-05 tablet (40 [facility] 40 MG 00:00: mg total) Medical tablet 00 by mouth Center daily. carvedilol 2021-0 Yes 6.25mg Take 6.25 [facility] (COREG) 5-05 mg by [facility] 6.25 MG 00:00: mouth of tablet 00 daily. Medicin e carvedilol 0 Yes 6.25mg Take 6.25 [facility] (COREG) 5-05 mg by [place] 6.25 MG 00:00: mouth of tablet 00 daily. Medicin e carvedilol 2021-0 Yes 6.25mg Take 6.25 [facility] (COREG) 5-05 mg by [place] 6.25 MG 00:00: mouth of tablet 00 daily. Medicin e carvediloL 2021-0 2021- No 6.25mg Q.5D Take [address] [facility] [address] [facility] (COREG) 5-05 05-23 [facility] 6.25 MG 00:00: 00:00 (6.25 mg Medic al tablet 00 :00 total) by Center mouth 2 (two) times daily. carvediloL 2021-0 2021- No 6.25mg Q.5D Take [address] [facility] [address] [facility] (COREG) 5-05 05-23 [facility] 6.25 MG 00:00: 00:00 (6.25 mg Medic al tablet 00 :00 total) by Center mouth 2 (two) times daily. carvediloL 2021-0 2021- No 6.25mg Q.5D Take [address] [facility] [address] [facility] (COREG) 5-05 05-23 [facility] 6.25 MG 00:00: 00:00 (6.25 mg Medic al tablet 00 :00 total) by Center mouth 2 (two) times daily. carvediloL 2021-0 2021- No 6.25mg Q.5D Take [address] [facility] [address] [facility] (COREG) 10-05 tablet [facility] 6.25 MG 00:00: 00:00 (6.25 mg Medic al tablet 00 :00 total) by Center mouth 2 (two) times daily. carvediloL No 6.25mg Q.5D Take [address] [facility] [address] [facility] (COREG) 10-05 tablet [facility] 6.25 MG 00:00: 00:00 (6.25 mg Medic al tablet 00 :00 total) by Center mouth 2 (two) times daily. atorvastati 0 Yes 40mg Take 40 mg [facility] (LIPITOR) 5-03 by mouth [facility] 40 MG 00:00: daily. of tablet 00 Medicin e atorvastati 0 Yes 40mg Take 40 mg [facility] n (LIPITOR) 5-03 by mouth [facility] 40 MG 00:00: daily. of tablet 00 Medicin e atorvastati 0 Yes 40mg Take 40 mg [facility] n (LIPITOR) 5-03 by mouth [facility] 40 MG 00:00: daily. of tablet 00 Medicin e atorvastati 0 Yes 40mg Take 40 mg [facility] (LIPIT[facility]) 5-03 by mouth [facility] 40 MG 00:00: daily. of tablet 00 Medicin e atorvastati 0 Yes 40mg Take 40 mg [facility] (LIPITOR) 5-03 by mouth [facility] 40 MG 00:00: daily. of tablet 00 Medicin e atorvastati 0 Yes 40mg Take 40 mg [facility] (LIPITOR) 5-03 by mouth [facility] 40 MG 00:00: daily. of tablet 00 Medicin e atorvastati 0 Yes 40mg Take 40 mg [facility] n (LIPITOR) 5-03 by mouth [facility] 40 MG 00:00: daily. of tablet 00 Medicin e meclizine 0 No 50mg 50 mg, Unive rs (TRAVEL-EAS 09-25 04-25 Oral, ity of E 17:15: 16:19 ONCE, 1 [place] (MECLIZINE) 00 :00 dose, On Medi jenna ) tablet 50 Mon [facility] mg 09/25/21 at 1215, JAMES meclizine 2021-0 Yes [id number] 25mg Take 1 [facility] 25 mg 4-25 tablet by ity of tablet 00:00: mouth 3 [place] 00 (three) Medical times Branch daily as needed for Dizziness. losartan 2021-0 Yes 100mg Take 100 [facility] (COZAAR) 4-06 mg by [facility] 100 MG 00:00: mouth of tablet 00 daily. Medicin e metoprolol 2021-0 Yes 100mg Take 100 [facility] (LOPRESSOR) 4-06 mg by [facility] 100 MG 00:00: mouth of tablet 00 daily. Medicin e amlodipine 2021-0 Yes 10mg Take 10 mg [facility] (NORVASC) 4-06 by mouth [facility] e 10 MG 00:00: daily. of tablet 00 Medicin e losartan 2021-0 Yes 100mg Take 100 [facility] (COZAAR) 4-06 mg by [facility] 100 MG 00:00: mouth of tablet 00 daily. Medicin e amlodipine 2021-0 Yes 10mg Take 10 mg [facility] (NORVASC) 4-06 by mouth [facility] e 10 MG 00:00: daily. of tablet 00 Medicin e amlodipine 2021-0 Yes 10mg Take 10 mg [facility] (NORVASC) 4-[facility] 10 MG 00:00: daily. of tablet 00 Medicin e losartan 2021-0 Yes 25mg Take 25 mg [facility] (COZAAR) 25 4-06 by mouth [facility] tablet 00:00: daily. of 00 Medicin e losartan 2021-0 Yes 100mg Take 100 [facility] (COZAAR) 4-06 mg by [place] 100 MG 00:00: mouth of tablet 00 daily. Medicin e amlodipine 2021-0 Yes 10mg Take 10 mg [facility] (NORVASC) 4-[facility] 10 MG 00:00: daily. of tablet 00 Medicin e metoprolol 2021-0 Yes 100mg Take 100 [facility] (LOPRESSOR) 4-06 mg by [facility] 100 MG 00:00: mouth of tablet 00 daily. Medicin e amlodipine 2-0 Yes 10mg Take 10 mg [facility] (NORVASC) 4-[facility] mouth [facility] 10 MG 00:00: daily. of tablet 00 Medicin e amlodipine 2022-0 Yes 10mg Take 10 mg [facility] (NORVASC) 4-[facility] e 10 MG 00:00: daily. of tablet 00 Medicin e losartan 2-0 Yes 100mg Take 100 [facility] (COZAAR) 4-06 mg by [place] 100 MG 00:00: mouth of tablet 00 daily. Medicin e metoprolol 2-0 Yes 100mg Take 100 [facility] (LOPRESSOR) 4-06 mg by [place] 100 MG 00:00: mouth of tablet 00 daily. Medicin e amlodipine 2-0 Yes 10mg Take 10 mg [facility] (NORVASC) 4-[facility] mouth [facility] e 10 MG 00:00: daily. of tablet 00 Medicin e glipiZIDE 2-0 Yes 5mg Take 5 mg [place] [facility] (GLUCOTROL) 4-03 by mouth [facility] 5 MG CR 00:00: daily. of tablet 00 Medicin e glipiZIDE 2-0 Yes 5mg Take 5 mg [place] [facility] (GLUCOTROL) 4-03 by mouth [facility] 5 MG CR 00:00: daily. of tablet 00 Medicin e glipiZIDE 2-0 Yes 5mg Take 5 mg [place] (GLUCOTROL) 4-03 by mouth [facility] 5 MG CR 00:00: two times of tablet 00 daily. Medicin e glipiZIDE 2022-0 Yes 5mg Take 5 mg [place] [facility] (GLUCOTROL) 4-03 by mouth [facility] 5 MG CR 00:00: daily. of tablet 00 Medicin e glipiZIDE 2-0 Yes 5mg Take 5 mg [place] (GLUCOTROL) 4-03 by mouth [facility] 5 MG CR 00:00: two times of tablet 00 daily. Medicin e glipiZIDE 2022-0 Yes 5mg Take 5 mg [place] (GLUCOTROL) 4-03 by mouth [facility] 5 MG CR 00:00: two times of tablet 00 daily. Medicin e glipiZIDE 2022-0 Yes 5mg Take 5 mg [place] (GLUCOTROL) 4-03 by mouth [facility] 5 MG CR 00:00: daily. of tablet 00 Medicin e Losartan Losartan No 1{table QD Losartan Potassium Potassium t} Potassium 100 MG 100 MG 100 MG glipiZIDE glipiZIDE No 1{table QD glipiZIDE ER 5 MG ER 5 MG t_with_ ER [address]} metFORMIN metFORMIN No 1{table BID metFORMIN HCl 1000 MG HCl 1000 MG t_with_ HCl 1000 a_meal} MG Metoprolol Metoprolol No 1{table BID Metoprolol Tartrate Tartrate t_with_ Tartrate 100 MG 100 MG food} 100 MG amLODIPine amLODIPine No 1{table QD amLODIPine Besylate 10 Besylate 10 t} Besylate MG MG 10 MG Atorvastati Atorvastati No 1{table QD Atorvastat n Calcium n Calcium t} in Calcium 40 MG 40 MG 40 MG Losartan Losartan No 1{table QD Losartan Potassium Potassium t} Potassium 100 MG 100 MG 100 MG glipiZIDE glipiZIDE No 1{table QD glipiZIDE ER 5 MG ER 5 MG t_with_ ER [address]} metFORMIN metFORMIN No 1{table BID metFORMIN HCl 1000 MG HCl 1000 MG t_with_ HCl 1000 a_meal} MG Metoprolol Metoprolol No 1{table BID Metoprolol Tartrate Tartrate t_with_ Tartrate 100 MG 100 MG food} 100 MG amLODIPine amLODIPine No 1{table QD amLODIPine Besylate 10 Besylate 10 t} Besylate MG MG 10 MG Atorvastati Atorvastati No 1{table QD Atorvastat n Calcium n Calcium t} in Calcium 40 MG 40 MG 40 MG Losartan Losartan No 1{table QD Losartan Potassium Potassium t} Potassium 100 MG 100 MG 100 MG glipiZIDE glipiZIDE No 1{table QD glipiZIDE ER 5 MG ER 5 MG t_with_ ER [address]} metFORMIN metFORMIN No 1{table BID metFORMIN HCl 1000 MG HCl 1000 MG t_with_ HCl 1000 a_meal} MG Metoprolol Metoprolol No 1{table BID Metoprolol Tartrate Tartrate t_with_ Tartrate 100 MG 100 MG food} 100 MG amLODIPine amLODIPine No 1{table QD amLODIPine Besylate 10 Besylate 10 t} Besylate MG MG 10 MG Atorvastati Atorvastati No 1{table QD Atorvastat n Calcium n Calcium t} in Calcium 40 MG 40 MG 40 MG amLODIPine amLODIPine No 1{table QD amLODIPine Besylate 10 Besylate 10 t} Besylate MG MG 10 MG Losartan Losartan No 1{table QD Losartan Potassium Potassium t} Potassium 100 MG 100 MG 100 MG metFORMIN metFORMIN No 1{table BID metFORMIN HCl 1000 MG HCl 1000 MG t_with_ HCl 1000 a_meal} MG Meclizine Meclizine No 1{table QD Meclizine HCl 25 MG HCl 25 MG t_as_ne HCl 25 MG eded} Metoprolol Metoprolol No 1{table BID Metoprolol Tartrate Tartrate t_with_ Tartrate 100 MG 100 MG food} 100 MG glipiZIDE glipiZIDE No 1{table QD glipiZIDE ER 5 MG ER 5 MG t_with_ ER [address]} Atorvastati Atorvastati No 1{table QD Atorvastat n Calcium n Calcium t} in Calcium 40 MG 40 MG 40 MG amLODIPine amLODIPine No 1{table QD amLODIPine Besylate 10 Besylate 10 t} Besylate MG MG 10 MG Losartan Losartan No 1{table QD Losartan Potassium Potassium t} Potassium 100 MG 100 MG 100 MG metFORMIN metFORMIN No 1{table BID metFORMIN HCl 1000 MG HCl 1000 MG t_with_ HCl 1000 a_meal} MG Meclizine Meclizine No 1{table QD Meclizine HCl 25 MG HCl 25 MG t_as_ne HCl 25 MG eded} Metoprolol Metoprolol No 1{table BID Metoprolol Tartrate Tartrate t_with_ Tartrate 100 MG 100 MG food} 100 MG glipiZIDE glipiZIDE No 1{table QD glipiZIDE ER 5 MG ER 5 MG t_with_ ER [address]} Atorvastati Atorvastati No 1{table QD Atorvastat n Calcium n Calcium t} in Calcium 40 MG 40 MG 40 MG amLODIPine amLODIPine No 1{table QD amLODIPine Besylate 10 Besylate 10 t} Besylate MG MG 10 MG Losartan Losartan No 1{table QD Losartan Potassium Potassium t} Potassium 100 MG 100 MG 100 MG metFORMIN metFORMIN No 1{table BID metFORMIN HCl 1000 MG HCl 1000 MG t_with_ HCl 1000 a_meal} MG Meclizine Meclizine No 1{table QD Meclizine HCl 25 MG HCl 25 MG t_as_ne HCl 25 MG eded} Metoprolol Metoprolol No 1{table BID Metoprolol Tartrate Tartrate t_with_ Tartrate 100 MG 100 MG food} 100 MG glipiZIDE glipiZIDE No 1{table QD glipiZIDE ER 5 MG ER 5 MG t_with_ ER [address]} Atorvastati Atorvastati No 1{table QD Atorvastat n Calcium n Calcium t} in Calcium 40 MG 40 MG 40 MG amLODIPine amLODIPine No 1{table QD amLODIPine Besylate 10 Besylate 10 t} Besylate MG MG 10 MG Losartan Losartan No 1{table QD Losartan Potassium Potassium t} Potassium 100 MG 100 MG 100 MG metFORMIN metFORMIN No 1{table BID metFORMIN HCl 1000 MG HCl 1000 MG t_with_ HCl 1000 a_meal} MG Meclizine Meclizine No 1{table QD Meclizine HCl 25 MG HCl 25 MG t_as_ne HCl 25 MG eded} Metoprolol Metoprolol No 1{table BID Metoprolol Tartrate Tartrate t_with_ Tartrate 100 MG 100 MG food} 100 MG glipiZIDE glipiZIDE No 1{table QD glipiZIDE ER 5 MG ER 5 MG t_with_ ER [address]} Atorvastati Atorvastati No 1{table QD Atorvastat n Calcium n Calcium t} in Calcium 40 MG 40 MG 40 MG amLODIPine amLODIPine No 1{table QD amLODIPine Besylate 10 Besylate 10 t} Besylate MG MG 10 MG Losartan Losartan No 1{table QD Losartan Potassium Potassium t} Potassium 100 MG 100 MG 100 MG metFORMIN metFORMIN No 1{table BID metFORMIN HCl 1000 MG HCl 1000 MG t_with_ HCl 1000 a_meal} MG Meclizine Meclizine No 1{table QD Meclizine HCl 25 MG HCl 25 MG t_as_ne HCl 25 MG eded} Metoprolol Metoprolol No 1{table BID Metoprolol Tartrate Tartrate t_with_ Tartrate 100 MG 100 MG food} 100 MG glipiZIDE glipiZIDE No 1{table QD glipiZIDE ER 5 MG ER 5 MG t_with_ ER [address]} Atorvastati Atorvastati No 1{table QD Atorvastat n Calcium n Calcium t} in Calcium 40 MG 40 MG 40 MG Meclizine Meclizine No Meclizine HCl 25 MG HCl 25 MG HCl 25 MG Aspirin 81 Aspirin 81 No 1{table QD Aspirin 81 MG MG t} MG amLODIPine amLODIPine No 1{table QD amLODIPine Besylate 10 Besylate 10 t} Besylate MG MG 10 MG metFORMIN metFORMIN No 1{table BID metFORMIN HCl 1000 MG HCl 1000 MG t_with_ HCl 1000 a_meal} MG glipiZIDE glipiZIDE No 1{table BID glipiZIDE ER 5 MG ER 5 MG t_with_ ER 5 MG food} Carvedilol Carvedilol No Carvedilol 6.25 MG 6.25 MG 6.25 MG Acetaminoph Acetaminoph No Acetaminop en-Codeine en-Codeine hen-Codein #3 300-30 #3 300-30 e #3 MG MG 300-30 MG Atorvastati Atorvastati No 1{table QD Atorvastat n Calcium n Calcium t} in Calcium 40 MG 40 MG 40 MG Losartan Losartan No 1{table QD Losartan Potassium Potassium t} Potassium 100 MG 100 MG 100 MG Meclizine Meclizine No Meclizine HCl 25 MG HCl 25 MG HCl 25 MG Aspirin 81 Aspirin 81 No 1{table QD Aspirin 81 MG MG t} MG amLODIPine amLODIPine No 1{table QD amLODIPine Besylate 10 Besylate 10 t} Besylate MG MG 10 MG metFORMIN metFORMIN No 1{table BID metFORMIN HCl 1000 MG HCl 1000 MG t_with_ HCl 1000 a_meal} MG glipiZIDE glipiZIDE No 1{table BID glipiZIDE ER 5 MG ER 5 MG t_with_ ER 5 MG food} Carvedilol Carvedilol No Carvedilol 6.25 MG 6.25 MG 6.25 MG Acetaminoph Acetaminoph No Acetaminop en-Codeine en-Codeine hen-Codein #3 300-30 #3 300-30 e #3 MG MG 300-30 MG Atorvastati Atorvastati No 1{table QD Atorvastat n Calcium n Calcium t} in Calcium 40 MG 40 MG 40 MG Losartan Losartan No 1{table QD Losartan Potassium Potassium t} Potassium 100 MG 100 MG 100 MG Meclizine Meclizine No Meclizine HCl 25 MG HCl 25 MG HCl 25 MG Aspirin 81 Aspirin 81 No 1{table QD Aspirin 81 MG MG t} MG amLODIPine amLODIPine No 1{table QD amLODIPine Besylate 10 Besylate 10 t} Besylate MG MG 10 MG metFORMIN metFORMIN No 1{table BID metFORMIN HCl 1000 MG HCl 1000 MG t_with_ HCl 1000 a_meal} MG glipiZIDE glipiZIDE No 1{table BID glipiZIDE ER 5 MG ER 5 MG t_with_ ER 5 MG food} Carvedilol Carvedilol No Carvedilol 6.25 MG 6.25 MG 6.25 MG Acetaminoph Acetaminoph No Acetaminop en-Codeine en-Codeine hen-Codein #3 300-30 #3 300-30 e #3 MG MG 300-30 MG Atorvastati Atorvastati No 1{table QD Atorvastat n Calcium n Calcium t} in Calcium 40 MG 40 MG 40 MG Losartan Losartan No 1{table QD Losartan Potassium Potassium t} Potassium 100 MG 100 MG 100 MG Meclizine Meclizine No Meclizine HCl 25 MG HCl 25 MG HCl 25 MG Aspirin 81 Aspirin 81 No 1{table QD Aspirin 81 MG MG t} MG amLODIPine amLODIPine No 1{table QD amLODIPine Besylate 10 Besylate 10 t} Besylate MG MG 10 MG metFORMIN metFORMIN No 1{table BID metFORMIN HCl 1000 MG HCl 1000 MG t_with_ HCl 1000 a_meal} MG glipiZIDE glipiZIDE No 1{table BID glipiZIDE ER 5 MG ER 5 MG t_with_ ER 5 MG food} Carvedilol Carvedilol No Carvedilol 6.25 MG 6.25 MG 6.25 MG Acetaminoph Acetaminoph No Acetaminop en-Codeine en-Codeine hen-Codein #3 300-30 #3 300-30 e #3 MG MG 300-30 MG Atorvastati Atorvastati No 1{table QD Atorvastat n Calcium n Calcium t} in Calcium 40 MG 40 MG 40 MG Losartan Losartan No 1{table QD Losartan Potassium Potassium t} Potassium 100 MG 100 MG 100 MG Meclizine Meclizine No Meclizine HCl 25 MG HCl 25 MG HCl 25 MG Aspirin 81 Aspirin 81 No 1{table QD Aspirin 81 MG MG t} MG amLODIPine amLODIPine No 1{table QD amLODIPine Besylate 10 Besylate 10 t} Besylate MG MG 10 MG Atorvastati Atorvastati No 1{table QD Atorvastat n Calcium n Calcium t} in Calcium 40 MG 40 MG 40 MG metFORMIN metFORMIN No metFORMIN HCl 1000 MG HCl 1000 MG HCl 1000 MG glipiZIDE glipiZIDE No glipiZIDE ER 5 MG ER 5 MG ER 5 MG Acetaminoph Acetaminoph No Acetaminop en-Codeine en-Codeine hen-Codein #3 300-30 #3 300-30 e #3 MG MG 300-30 MG Carvedilol Carvedilol No Carvedilol 6.25 MG 6.25 MG 6.25 MG Losartan Losartan No Losartan Potassium Potassium Potassium 100 MG 100 MG 100 MG Meclizine Meclizine No Meclizine HCl 25 MG HCl 25 MG HCl 25 MG Aspirin 81 Aspirin 81 No 1{table QD Aspirin 81 MG MG t} MG amLODIPine amLODIPine No 1{table QD amLODIPine Besylate 10 Besylate 10 t} Besylate MG MG 10 MG Atorvastati Atorvastati No 1{table QD Atorvastat n Calcium n Calcium t} in Calcium 40 MG 40 MG 40 MG metFORMIN metFORMIN No metFORMIN HCl 1000 MG HCl 1000 MG HCl 1000 MG glipiZIDE glipiZIDE No glipiZIDE ER 5 MG ER 5 MG ER 5 MG Acetaminoph Acetaminoph No Acetaminop en-Codeine en-Codeine hen-Codein #3 300-30 #3 300-30 e #3 MG MG 300-30 MG Carvedilol Carvedilol No Carvedilol 6.25 MG 6.25 MG 6.25 MG Losartan Losartan No Losartan Potassium Potassium Potassium 100 MG 100 MG 100 MG Meclizine Meclizine No Meclizine HCl 25 MG HCl 25 MG HCl 25 MG Aspirin 81 Aspirin 81 No 1{table QD Aspirin 81 MG MG t} MG amLODIPine amLODIPine No 1{table QD amLODIPine Besylate 10 Besylate 10 t} Besylate MG MG 10 MG Atorvastati Atorvastati No 1{table QD Atorvastat n Calcium n Calcium t} in Calcium 40 MG 40 MG 40 MG metFORMIN metFORMIN No metFORMIN HCl 1000 MG HCl 1000 MG HCl 1000 MG glipiZIDE glipiZIDE No glipiZIDE ER 5 MG ER 5 MG ER 5 MG Acetaminoph Acetaminoph No Acetaminop en-Codeine en-Codeine hen-Codein #3 300-30 #3 300-30 e #3 MG MG 300-30 MG Carvedilol Carvedilol No Carvedilol 6.25 MG 6.25 MG 6.25 MG Losartan Losartan No Losartan Potassium Potassium Potassium 100 MG 100 MG 100 MG Meclizine Meclizine No Meclizine HCl 25 MG HCl 25 MG HCl 25 MG metFORMIN metFORMIN No metFORMIN HCl 1000 MG HCl 1000 MG HCl 1000 MG Acetaminoph Acetaminoph No Acetaminop en-Codeine en-Codeine hen-Codein #3 300-30 #3 300-30 e #3 MG MG 300-30 MG Losartan Losartan No Losartan Potassium Potassium Potassium 100 MG 100 MG 100 MG metFORMIN metFORMIN No 1{table BID metFORMIN HCl 1000 MG HCl 1000 MG t_with_ HCl 1000 a_meal} MG Losartan Losartan No 1{table QD Losartan Potassium Potassium t} Potassium 100 MG 100 MG 100 MG Meclizine Meclizine No 1{table QD Meclizine HCl 25 MG HCl 25 MG t_as_ne HCl 25 MG eded} glipiZIDE glipiZIDE No glipiZIDE ER 5 MG ER 5 MG ER 5 MG Aspirin 81 Aspirin 81 No 1{table QD Aspirin 81 MG MG t} MG Metoprolol Metoprolol No 1{table QD Metoprolol Succinate Succinate t} Succinate ER 25 MG ER 25 MG ER 25 MG Atorvastati Atorvastati No 1{table QD Atorvastat n Calcium n Calcium t} in Calcium 40 MG 40 MG 40 MG glipiZIDE glipiZIDE No 1{table BID glipiZIDE ER 5 MG ER 5 MG t_with_ ER 5 MG food} Meclizine Meclizine No Meclizine HCl 25 MG HCl 25 MG HCl 25 MG amLODIPine amLODIPine No amLODIPine Besylate 10 Besylate 10 Besylate MG MG 10 MG metFORMIN metFORMIN No metFORMIN HCl 1000 MG HCl 1000 MG HCl 1000 MG Aspirin 81 Aspirin 81 No 1{table QD Aspirin 81 MG MG t} MG Meclizine Meclizine No 1{table QD Meclizine HCl 25 MG HCl 25 MG t_as_ne HCl 25 MG eded} Losartan Losartan No 1{table QD Losartan Potassium Potassium t} Potassium 100 MG 100 MG 100 MG Acetaminoph Acetaminoph No Acetaminop en-Codeine en-Codeine hen-Codein #3 300-30 #3 300-30 e #3 MG MG 300-30 MG glipiZIDE glipiZIDE No glipiZIDE ER 5 MG ER 5 MG ER 5 MG Metoprolol Metoprolol No 1{table QD Metoprolol Succinate Succinate t} Succinate ER 25 MG ER 25 MG ER 25 MG Atorvastati Atorvastati No 1{table QD Atorvastat n Calcium n Calcium t} in Calcium 40 MG 40 MG 40 MG Losartan Losartan No Losartan Potassium Potassium Potassium 100 MG 100 MG 100 MG Losartan Losartan No 1{table QD Losartan Potassium Potassium t} Potassium 50 MG 50 MG 50 MG glipiZIDE glipiZIDE No glipiZIDE ER 5 MG ER 5 MG ER 5 MG metFORMIN metFORMIN No 1{table BID metFORMIN HCl 1000 MG HCl 1000 MG t_with_ HCl 1000 a_meal} MG Aspirin 81 Aspirin 81 No 1{table QD Aspirin 81 MG MG t} MG Losartan Losartan No Losartan Potassium Potassium Potassium 100 MG 100 MG 100 MG amLODIPine amLODIPine No amLODIPine Besylate 10 Besylate 10 Besylate MG MG 10 MG Metoprolol Metoprolol No 1{capsu QD Metoprolol Succinate Succinate le} Succinate 25 MG 25 MG 25 MG Meclizine Meclizine No 1{table QD Meclizine HCl 25 MG HCl 25 MG t_as_ne HCl 25 MG eded} Metoprolol Metoprolol No 1{table QD Metoprolol Succinate Succinate t} Succinate ER 25 MG ER 25 MG ER 25 MG Meclizine Meclizine No Meclizine HCl 25 MG HCl 25 MG HCl 25 MG metFORMIN metFORMIN No metFORMIN HCl 1000 MG HCl 1000 MG HCl 1000 MG glipiZIDE glipiZIDE No 1{table BID glipiZIDE ER 5 MG ER 5 MG t_with_ ER 5 MG food} Clopidogrel Clopidogrel No 1{table QD Clopidogre Bisulfate Bisulfate t} l 75 MG 75 MG Bisulfate 75 MG Acetaminoph Acetaminoph No Acetaminop en-Codeine en-Codeine hen-Codein #3 300-30 #3 300-30 e #3 MG MG 300-30 MG Atorvastati Atorvastati No 1{table QD Atorvastat n Calcium n Calcium t} in Calcium 40 MG 40 MG 40 MG Gabapentin Gabapentin No 1{capsu QD Gabapentin 100 MG 100 MG le} 100 MG Losartan Losartan No 1{table QD Losartan Potassium Potassium t} Potassium 50 MG 50 MG 50 MG glipiZIDE glipiZIDE No glipiZIDE ER 5 MG ER 5 MG ER 5 MG metFORMIN metFORMIN No 1{table BID metFORMIN HCl 1000 MG HCl 1000 MG t_with_ HCl 1000 a_meal} MG Aspirin 81 Aspirin 81 No 1{table QD Aspirin 81 MG MG t} MG Losartan Losartan No Losartan Potassium Potassium Potassium 100 MG 100 MG 100 MG amLODIPine amLODIPine No amLODIPine Besylate 10 Besylate 10 Besylate MG MG 10 MG Metoprolol Metoprolol No 1{capsu QD Metoprolol Succinate Succinate le} Succinate 25 MG 25 MG 25 MG Meclizine Meclizine No 1{table QD Meclizine HCl 25 MG HCl 25 MG t_as_ne HCl 25 MG eded} Metoprolol Metoprolol No 1{table QD Metoprolol Succinate Succinate t} Succinate ER 25 MG ER 25 MG ER 25 MG Meclizine Meclizine No Meclizine HCl 25 MG HCl 25 MG HCl 25 MG metFORMIN metFORMIN No metFORMIN HCl 1000 MG HCl 1000 MG HCl 1000 MG glipiZIDE glipiZIDE No 1{table BID glipiZIDE ER 5 MG ER 5 MG t_with_ ER 5 MG food} Clopidogrel Clopidogrel No 1{table QD Clopidogre Bisulfate Bisulfate t} l 75 MG 75 MG Bisulfate 75 MG Acetaminoph Acetaminoph No Acetaminop en-Codeine en-Codeine hen-Codein #3 300-30 #3 300-30 e #3 MG MG 300-30 MG Atorvastati Atorvastati No 1{table QD Atorvastat n Calcium n Calcium t} in Calcium 40 MG 40 MG 40 MG Gabapentin Gabapentin No 1{capsu QD Gabapentin 100 MG 100 MG le} 100 MG Losartan Losartan No 1{table QD Losartan Potassium Potassium t} Potassium 50 MG 50 MG 50 MG metFORMIN metFORMIN No 1{table BID metFORMIN HCl 1000 MG HCl 1000 MG t_with_ HCl 1000 a_meal} MG Meclizine Meclizine No Meclizine HCl 25 MG HCl 25 MG HCl 25 MG Losartan Losartan No Losartan Potassium Potassium Potassium 100 MG 100 MG 100 MG Aspirin 81 Aspirin 81 No 1{table QD Aspirin 81 MG MG t} MG Metoprolol Metoprolol No 1{capsu QD Metoprolol Succinate Succinate le} Succinate 25 MG 25 MG 25 MG metFORMIN metFORMIN No metFORMIN HCl 1000 MG HCl 1000 MG HCl 1000 MG Clopidogrel Clopidogrel No 1{table QD Clopidogre Bisulfate Bisulfate t} l 75 MG 75 MG Bisulfate 75 MG Atorvastati Atorvastati No 1{table QD Atorvastat n Calcium n Calcium t} in Calcium 40 MG 40 MG 40 MG glipiZIDE glipiZIDE No glipiZIDE ER 5 MG ER 5 MG ER 5 MG glipiZIDE glipiZIDE No 1{table BID glipiZIDE ER 5 MG ER 5 MG t_with_ ER 5 MG food} Gabapentin Gabapentin No 1{capsu QD Gabapentin 100 MG 100 MG le} 100 MG Acetaminoph Acetaminoph No Acetaminop en-Codeine en-Codeine hen-Codein #3 300-30 #3 300-30 e #3 MG MG 300-30 MG Metoprolol Metoprolol No 1{table QD Metoprolol Succinate Succinate t} Succinate ER 25 MG ER 25 MG ER 25 MG Meclizine Meclizine No 1{table QD Meclizine HCl 25 MG HCl 25 MG t_as_ne HCl 25 MG eded} Losartan Losartan No 1{table QD Losartan Potassium Potassium t} Potassium 50 MG 50 MG 50 MG metFORMIN metFORMIN No 1{table BID metFORMIN HCl 1000 MG HCl 1000 MG t_with_ HCl 1000 a_meal} MG Meclizine Meclizine No Meclizine HCl 25 MG HCl 25 MG HCl 25 MG Losartan Losartan No Losartan Potassium Potassium Potassium 100 MG 100 MG 100 MG Aspirin 81 Aspirin 81 No 1{table QD Aspirin 81 MG MG t} MG Metoprolol Metoprolol No 1{capsu QD Metoprolol Succinate Succinate le} Succinate 25 MG 25 MG 25 MG metFORMIN metFORMIN No metFORMIN HCl 1000 MG HCl 1000 MG HCl 1000 MG Clopidogrel Clopidogrel No 1{table QD Clopidogre Bisulfate Bisulfate t} l 75 MG 75 MG Bisulfate 75 MG Atorvastati Atorvastati No 1{table QD Atorvastat n Calcium n Calcium t} in Calcium 40 MG 40 MG 40 MG glipiZIDE glipiZIDE No glipiZIDE ER 5 MG ER 5 MG ER 5 MG glipiZIDE glipiZIDE No 1{table BID glipiZIDE ER 5 MG ER 5 MG t_with_ ER 5 MG food} Gabapentin Gabapentin No 1{capsu QD Gabapentin 100 MG 100 MG le} 100 MG Acetaminoph Acetaminoph No Acetaminop en-Codeine en-Codeine hen-Codein #3 300-30 #3 300-30 e #3 MG MG 300-30 MG Metoprolol Metoprolol No 1{table QD Metoprolol Succinate Succinate t} Succinate ER 25 MG ER 25 MG ER 25 MG Meclizine Meclizine No 1{table QD Meclizine HCl 25 MG HCl 25 MG t_as_ne HCl 25 MG eded} Losartan Losartan No 1{table QD Losartan Potassium Potassium t} Potassium 50 MG 50 MG 50 MG metFORMIN metFORMIN No 1{table BID metFORMIN HCl 1000 MG HCl 1000 MG t_with_ HCl 1000 a_meal} MG Meclizine Meclizine No Meclizine HCl 25 MG HCl 25 MG HCl 25 MG Losartan Losartan No Losartan Potassium Potassium Potassium 100 MG 100 MG 100 MG Aspirin 81 Aspirin 81 No 1{table QD Aspirin 81 MG MG t} MG Metoprolol Metoprolol No 1{capsu QD Metoprolol Succinate Succinate le} Succinate 25 MG 25 MG 25 MG metFORMIN metFORMIN No metFORMIN HCl 1000 MG HCl 1000 MG HCl 1000 MG Clopidogrel Clopidogrel No 1{table QD Clopidogre Bisulfate Bisulfate t} l 75 MG 75 MG Bisulfate 75 MG Atorvastati Atorvastati No 1{table QD Atorvastat n Calcium n Calcium t} in Calcium 40 MG 40 MG 40 MG glipiZIDE glipiZIDE No glipiZIDE ER 5 MG ER 5 MG ER 5 MG glipiZIDE glipiZIDE No 1{table BID glipiZIDE ER 5 MG ER 5 MG t_with_ ER 5 MG food} Gabapentin Gabapentin No 1{capsu QD Gabapentin 100 MG 100 MG le} 100 MG Acetaminoph Acetaminoph No Acetaminop en-Codeine en-Codeine hen-Codein #3 300-30 #3 300-30 e #3 MG MG 300-30 MG Metoprolol Metoprolol No 1{table QD Metoprolol Succinate Succinate t} Succinate ER 25 MG ER 25 MG ER 25 MG Meclizine Meclizine No 1{table QD Meclizine HCl 25 MG HCl 25 MG t_as_ne HCl 25 MG eded} Gabapentin Gabapentin No 1{capsu QD Gabapentin 100 MG 100 MG le} 100 MG Losartan Losartan No 1{table QD Losartan Potassium Potassium t} Potassium 50 MG 50 MG 50 MG Atorvastati Atorvastati No 1{table QD Atorvastat n Calcium n Calcium t} in Calcium 40 MG 40 MG 40 MG Meclizine Meclizine No 1{table QD Meclizine HCl 25 MG HCl 25 MG t_as_ne HCl 25 MG eded} metFORMIN metFORMIN No 1{table BID metFORMIN HCl 1000 MG HCl 1000 MG t_with_ HCl 1000 a_meal} MG Aspirin 81 Aspirin 81 No 1{table QD Aspirin 81 MG MG t} MG Clopidogrel Clopidogrel No 1{table QD Clopidogre Bisulfate Bisulfate t} l 75 MG 75 MG Bisulfate 75 MG Acetaminoph Acetaminoph No Acetaminop en-Codeine en-Codeine hen-Codein #3 300-30 #3 300-30 e #3 MG MG 300-30 MG glipiZIDE glipiZIDE No glipiZIDE ER 5 MG ER 5 MG ER 5 MG Metoprolol Metoprolol No 1{capsu QD Metoprolol Succinate Succinate le} Succinate 25 MG 25 MG 25 MG Losartan Losartan No Losartan Potassium Potassium Potassium 100 MG 100 MG 100 MG Meclizine Meclizine No Meclizine HCl 25 MG HCl 25 MG HCl 25 MG Metoprolol Metoprolol No 1{table QD Metoprolol Succinate Succinate t} Succinate ER 25 MG ER 25 MG ER 25 MG metFORMIN metFORMIN No metFORMIN HCl 1000 MG HCl 1000 MG HCl 1000 MG metFORMIN metFORMIN No metFORMIN HCl 1000 MG HCl 1000 MG HCl 1000 MG Metoprolol Metoprolol No 1{capsu QD Metoprolol Succinate Succinate le} Succinate 25 MG 25 MG 25 MG amLODIPine amLODIPine No amLODIPine Besylate 10 Besylate 10 Besylate MG MG 10 MG Atorvastati Atorvastati No 1{table QD Atorvastat n Calcium n Calcium t} in Calcium 40 MG 40 MG 40 MG Meclizine Meclizine No 1{table QD Meclizine HCl 25 MG HCl 25 MG t_as_ne HCl 25 MG eded} metFORMIN metFORMIN No 1{table BID metFORMIN HCl 1000 MG HCl 1000 MG t_with_ HCl 1000 a_meal} MG Clopidogrel Clopidogrel No 1{table QD Clopidogre Bisulfate Bisulfate t} l 75 MG 75 MG Bisulfate 75 MG Gabapentin Gabapentin No 1{capsu QD Gabapentin 100 MG 100 MG le} 100 MG Losartan Losartan No 1{table QD Losartan Potassium Potassium t} Potassium 50 MG 50 MG 50 MG Losartan Losartan No Losartan Potassium Potassium Potassium 100 MG 100 MG 100 MG Metoprolol Metoprolol No 1{table QD Metoprolol Succinate Succinate t} Succinate ER 25 MG ER 25 MG ER 25 MG Aspirin 81 Aspirin 81 No 1{table QD Aspirin 81 MG MG t} MG Meclizine Meclizine No Meclizine HCl 25 MG HCl 25 MG HCl 25 MG Acetaminoph Acetaminoph No Acetaminop en-Codeine en-Codeine hen-Codein #3 300-30 #3 300-30 e #3 MG MG 300-30 MG glipiZIDE glipiZIDE No glipiZIDE ER 5 MG ER 5 MG ER 5 MG metFORMIN metFORMIN No 1{table BID metFORMIN HCl 1000 MG HCl 1000 MG t_with_ HCl 1000 a_meal} MG Metoprolol Metoprolol No 1{table BID Metoprolol Tartrate Tartrate t_with_ Tartrate 100 MG 100 MG food} 100 MG amLODIPine amLODIPine No 1{table QD amLODIPine Besylate 10 Besylate 10 t} Besylate MG MG 10 MG Atorvastati Atorvastati No 1{table QD Atorvastat n Calcium n Calcium t} in Calcium 40 MG 40 MG 40 MG Losartan Losartan No 1{table QD Losartan Potassium Potassium t} Potassium 100 MG 100 MG 100 MG glipiZIDE glipiZIDE No 1{table QD glipiZIDE ER 5 MG ER 5 MG t_with_ ER [address]} Atorvastati Atorvastati No 1{table QD Atorvastat n Calcium n Calcium t} in Calcium 40 MG 40 MG 40 MG amLODIPine amLODIPine No 1{table QD amLODIPine Besylate 10 Besylate 10 t} Besylate MG MG 10 MG metFORMIN metFORMIN No 1{table BID metFORMIN HCl 1000 MG HCl 1000 MG t_with_ HCl 1000 a_meal} MG Metoprolol Metoprolol No 1{table BID Metoprolol Tartrate Tartrate t_with_ Tartrate 100 MG 100 MG food} 100 MG Losartan Losartan No 1{table QD Losartan Potassium Potassium t} Potassium 100 MG 100 MG 100 MG glipiZIDE glipiZIDE No 1{table QD glipiZIDE ER 5 MG ER 5 MG t_with_ ER [address]} Immunizations Ordered Filled Immunization Date Status Comments Sourc e Immunization Name Name Prevnar (PCV) Prevnar 20 (PCV20) 2021-08-21 Completed [facility]:00 [facility] Prevnar 20 (PCV20) Prevnar 20 (PCV20) 2021-08-21 Completed [facility] 16:01:00 [facility] Prevnar 20 (PCV20) Prevnar 20 (PCV20) 2021-08-21 Completed [facility] 16:01:00 [facility] Prevnar 20 (PCV20) Prevnar 20 (PCV20) 2021-08-21 Completed [facility] - 16:01:00 [facility] Prevnar 20 (PCV20) Prevnar 20 (PCV20) 2021-08-21 Completed [facility] - 16:01:00 [facility] Prevnar 20 (PCV20) Prevnar 20 (PCV20) 2021-08-21 Completed [facility] 16:01:00 [facility] Prevnar 20 (PCV20) Prevnar 20 (PCV20) 2021-08-21 Completed [facility] - 16:01:00 [facility] Prevnar 20 (PCV20) Prevnar 20 (PCV20) 2021-08-21 Completed [facility] - 16:01:00 [facility] Prevnar 20 (PCV20) Prevnar 20 (PCV20) 2021-08-21 Completed [facility] - 16:01:00 [facility] Prevnar 20 (PCV20) Prevnar 20 (PCV20) 2021-08-21 Completed [facility] - 16:01:00 [facility] Prevnar 20 (PCV20) Prevnar 20 (PCV20) 2021-08-21 Completed [facility] - 16:01:00 [facility] Prevnar 20 (PCV20) Prevnar 20 (PCV20) 2021-08-21 Completed [facility] - 16:01:00 [facility] Prevnar 20 (PCV20) Prevnar 20 (PCV20) 2021-08-21 Completed [facility] - 16:01:00 [facility] Prevnar 20 (PCV20) Prevnar 20 (PCV20) 2021-08-21 Completed [facility] - 16:01:00 [facility] Prevnar 20 (PCV20) Prevnar 20 (PCV20) 2021-08-21 Completed [facility] - 16:01:00 [facility] Prevnar 20 (PCV20) Prevnar 20 (PCV20) 2021-08-21 Completed [facility] - 16:01:00 [facility] Prevnar 20 (PCV20) Prevnar 20 (PCV20) 2021-08-21 Completed [facility] - 16:01:00 [facility] Prevnar 20 (PCV20) Prevnar 20 (PCV20) 2021-08-21 Completed [facility] - 16:01:00 [facility] Prevnar 20 (PCV20) Prevnar 20 (PCV20) 2021-08-21 Completed [facility] - 16:01:00 [facility] Prevnar 20 (PCV20) Prevnar 20 (PCV20) 2021-08-21 Completed [facility] - 16:01:00 [facility] Prevnar 20 (PCV20) Prevnar 20 (PCV20) 2021-08-21 Completed [facility] - 16:01:00 [facility] Prevnar 20 (PCV20) Prevnar 20 (PCV20) 2021-08-21 Completed [facility] - 16:01:00 [facility] Prevnar 20 (PCV20) Prevnar 20 (PCV20) 2021-08-21 Completed [facility] - 16:01:00 [facility] Prevnar 20 (PCV20) Prevnar 20 (PCV20) 2021-08-21 Completed [facility] - 16:01:00 [facility] Pneumococcal 2021-08-21 Completed [facility] 20-Valent Conjugate 00:00:00 [facility] Vaccine Pneumococcal 2021-08-21 Completed [facility] of 20-Valent Conjugate 00:00:00 Medic ine Vaccine Pneumococcal 2021-08-21 Completed [facility] of 20-Valent Conjugate 00:00:00 Medic ine Vaccine Pneumococcal 2021-08-21 Completed [facility] 20-Valent Conjugate 00:00:00 Medic ine Vaccine Pneumococcal 2021-08-21 Completed [facility] ge of 20-Valent Conjugate 00:00:00 Medic ine Vaccine Pneumococcal 2021-08-21 Completed [facility] of 20-Valent Conjugate 00:00:00 Medic ine Vaccine Pneumococcal 2021-08-21 Completed [facility] of 20-Valent Conjugate 00:00:00 Medic ine Vaccine SARS-COV-2 COVID-19 2021-03-27 Completed [facility] 00:00:00 [facility] ical VACCINE Branch SARS-COV-2 COVID-19 2020 Completed [facility] VACCINE 00:00:00 [facility] ical Branch SARS-COV-2 COVID-19 2020-08-10 Completed [facility]NA VACCINE 00:00:00 [facility] Flucelvax - single Flucelvax - single 2020-04-07 Completed [facility] - dose syringe dose syringe 14:18:00 [facility] Flucelvax - single Flucelvax - single 2020-04-07 Completed [facility] - dose syringe dose syringe 14:18:00 [facility] Flucelvax - single Flucelvax - single 2020-04-07 Completed [facility] - dose syringe dose syringe 14:18:00 [facility] Flucelvax - single Flucelvax - single 2020-04-07 Completed [facility] - dose syringe dose syringe 14:18:00 [facility] Flucelvax - single Flucelvax - single 2020-04-07 Completed [facility] - dose syringe dose syringe 14:18:00 [facility] Flucelvax - single Flucelvax - single 2020-04-07 Completed [facility] - dose syringe dose syringe 14:18:00 [facility] Flucelvax - single Flucelvax - single 2020-04-07 Completed [facility] - dose syringe dose syringe 14:18:00 [facility] Flucelvax - single Flucelvax - single 2020-04-07 Completed [facility] - dose syringe dose syringe 14:18:00 [facility] Flucelvax - single Flucelvax - single 2020-04-07 Completed [facility] - dose syringe dose syringe 14:18:00 [facility] Flucelvax - single Flucelvax - single 2020-04-07 Completed [facility] - dose syringe dose syringe 14:18:00 [facility] Flucelvax - single Flucelvax - single 2020-04-07 Completed [facility] - dose syringe dose syringe 14:18:00 [facility] Flucelvax - single Flucelvax - single 2020-04-07 Completed [facility] - dose syringe dose syringe 14:18:00 [facility] Flucelvax - single Flucelvax - single 2020-04-07 Completed [facility] - dose syringe dose syringe 14:18:00 [facility] Flucelvax - single Flucelvax - single 2020-04-07 Completed [facility] - dose syringe dose syringe 14:18:00 [facility] Flucelvax - single Flucelvax - single 2020-04-07 Completed [facility] - dose syringe dose syringe 14:18:00 [facility] Flucelvax - single Flucelvax - single 2020-04-07 Completed [facility] - dose syringe dose syringe 14:18:00 [facility] Flucelvax - single Flucelvax - single 2020-04-07 Completed [facility] - dose syringe dose syringe 14:18:00 [facility] Flucelvax - single Flucelvax - single 2020-04-07 Completed [facility] - dose syringe dose syringe 14:18:00 [facility] Flucelvax - single Flucelvax - single 2020-04-07 Completed [facility] - dose syringe dose syringe 14:18:00 [facility] Flucelvax - single Flucelvax - single 2020-04-07 Completed [facility] - dose syringe dose syringe 14:18:00 [facility] Flucelvax - single Flucelvax - single 2020-04-07 Completed [facility] - dose syringe dose syringe 14:18:00 [facility] Flucelvax - single Flucelvax - single 2020-04-07 Completed [facility] - dose syringe dose syringe 14:18:00 [facility] Flucelvax - single Flucelvax - single 2020-04-07 Completed [facility] - dose syringe dose syringe 14:18:00 [facility] Flucelvax - single Flucelvax - single 2020-04-07 Completed [facility] - dose syringe dose syringe 14:18:[address] [facility] Flucelvax - single Flucelvax - single 2020-04-07 Completed [facility] - dose syringe dose syringe 14:18:00 [facility] Flucelvax - single Flucelvax - single 2020-04-07 Completed [facility] - dose syringe dose syringe 14:18:00 [facility] Influenza 2020-04-07 Completed [facility] (Preservative Free) 00:00:00 [facility] Influenza 2020-04-07 Completed [facility] (Preservative Free) 00:00:00 Medic ine Influenza 2020-04-07 Completed [facility] (Preservative Free) 00:00:00 Medic ine Influenza 2020-04-07 Completed [facility] (Preservative Free) 00:00:00 Medic ine Influenza 2020-04-07 Completed [facility] (Preservative Free) 00:00:00 Medic ine Influenza 2020-04-07 Completed [facility] (Preservative Free) 00:00:00 Medic ine Influenza 2020-04-07 Completed [facility] (Preservative Free) 00:00:00 [facility] Vital Signs Vital Name Observation Time Observation Value Comments Source Systolic blood 2022-05-02 18:00:00 159 mm[Hg] [facility] pressure Medicine Diastolic blood 2022-05-02 18:00:00 96 mm[Hg] [facility] of pressure Medicine Heart rate 2022-05-02 18:00:00 90 /min [facility] Body height 2022-05-02 18:00:00 167.6 cm [facility] Body weight 2022-05-02 18:00:00 88.451 kg [facility] BMI 2022-05-02 18:00:00 31.47 kg/m2 [facility] height 2022-04-30 11:30:00 68 [in_i] [facility] weight 2022-04-30 11:30:00 190 [lb_av] [facility] temperature 2022-04-30 11:30:00 98 [degF] [facility] bmi 2022-04-30 11:30:00 28.89 kg/m2 [facility] blood pressure 2022-04-30 11:30:00 132 mm[Hg] Common [facility] - systolic [facility] blood pressure 2022-04-30 11:30:00 72 mm[Hg] Common [facility] - diastolic [facility] height 2022-04-09 13:00:00 68 [in_i] [facility] weight 2022-04-09 13:00:00 191.6 [lb_av] [facility] temperature 2022-04-09 13:00:00 97.2 [degF] Common [facility] bmi 2022-04-09 13:00:00 29.13 kg/m2 [facility] oximetry 2022-04-09 13:00:00 96 % [facility] respiratory rate 2022-04-09 13:00:00 17 /min [facility] blood pressure 2022-04-09 13:00:00 135 mm[Hg] Common [facility] - systolic [facility] blood pressure 2022-04-09 13:00:00 75 mm[Hg] Common [facility] - diastolic [facility] WEIGHT 2022-04-04 09:24:00 86.6 kg HEIGHT 2022-04-03 15:15:00 175.3 cm WEIGHT 2022-04-03 15:15:00 86.1 kg WEIGHT 2022-04-02 18:35:00 88.451 kg HEIGHT 2022-04-02 05:56:00 167.6 cm WEIGHT 2022-04-02 05:56:00 88.451 kg WEIGHT 2022-04-04 09:24:00 86.6 kg HEIGHT 2022-04-03 15:15:00 175.3 cm WEIGHT 2022-04-03 15:15:00 86.1 kg WEIGHT 2022-04-02 18:35:00 88.451 kg HEIGHT 2022-04-02 05:56:00 167.6 cm WEIGHT 2022-04-02 05:56:00 88.451 kg WEIGHT 2022-04-04 09:24:00 86.6 kg HEIGHT 2022-04-03 15:15:00 175.3 cm WEIGHT 2022-04-03 15:15:00 86.1 kg WEIGHT 2022-04-02 18:35:00 88.451 kg HEIGHT 2022-04-02 05:56:00 167.6 cm WEIGHT 2022-04-02 05:56:00 88.451 kg Systolic blood 2022-03-06 14:06:00 156 mm[Hg] [facility] pressure Medicine Diastolic blood 2022-03-06 14:06:00 95 mm[Hg] [facility] Medicine Heart rate 2022-03-06 14:06:00 81 /min [facility] Respiratory rate 2022-03-06 14:06:00 17 /min [facility] Body height 2022-03-06 14:06:00 167.6 cm [facility] Systolic blood 2022-02-27 21:01:00 160 mm[Hg] [facility] Medicine Diastolic blood 2022-02-27 21:01:00 110 mm[Hg] [facility] Medicine Heart rate 2022-02-27 20:52:00 95 /min [facility] Respiratory rate 2022-02-27 20:52:00 16 /min [facility] Body height 2022-02-27 20:52:00 167.6 cm [facility] Oxygen saturation in 2022-02-27 20:52:00 99 /min [facility] Arterial blood by Medicine Pulse oximetry Systolic blood 2022-01-30 16:00:00 130 mm[Hg] [facility] pressure Medicine Diastolic blood 2022-01-30 16:00:00 78 mm[Hg] [facility] Medicine Heart rate 2022-01-30 16:00:00 82 /min [facility] Respiratory rate 2022-01-30 16:00:00 20 /min [facility] Body height 2022-01-30 16:00:00 167.6 cm [facility] 2022-01-30 16:00:00 92.534 [facility] BMI 2022-01-30 16:00:00 32.93 kg/m2 [facility] height 2022-01-18 10:00:00 68 [in_i] [facility] weight 2022-01-18 10:00:00 205 [lb_av] [facility] temperature 2022-01-18 10:00:00 96.5 [degF] [facility] bmi 2022-01-18 10:00:00 31.17 kg/m2 [facility] oximetry 2022-01-18 10:00:00 97 % [facility] respiratory rate 2022-01-18 10:00:00 18 /min [facility] blood pressure 2022-01-18 10:00:00 139 mm[Hg] Common [facility] - systolic [facility] blood pressure 2022-01-18 10:00:00 78 mm[Hg] Common [facility] - diastolic [facility] HEIGHT 2022-01-10 12:11:00 167.6 cm WEIGHT 2022-01-10 12:11:00 92.987 kg HEIGHT 2022-01-10 12:11:00 167.6 cm WEIGHT 2022-01-10 12:11:00 92.987 kg HEIGHT 2022-01-10 12:11:00 167.6 cm WEIGHT 2022-01-10 12:11:00 92.987 kg WEIGHT 2021-12-29 04:00:00 93.214 kg WEIGHT 2021-12-28 05:17:00 91.627 kg WEIGHT 2021-12-27 05:01:00 93.35 kg HEIGHT 2021-12-26 08:00:00 167.6 cm WEIGHT 2021-12-26 08:00:00 95.255 kg WEIGHT 2021-12-26 05:45:00 95.5 kg WEIGHT 2021-12-23 04:42:00 92.443 kg HEIGHT 2021-12-21 06:00:00 165.1 cm WEIGHT 2021-12-21 06:00:00 93.441 kg WEIGHT 2021-12-29 04:00:00 93.214 kg WEIGHT 2021-12-28 05:17:00 91.627 kg WEIGHT 2021-12-27 05:01:00 93.35 kg HEIGHT 2021-12-26 08:00:00 167.6 cm WEIGHT 2021-12-26 08:00:00 95.255 kg WEIGHT 2021-12-26 05:45:00 95.5 kg WEIGHT 2021-12-23 04:42:00 92.443 kg HEIGHT 2021-12-21 06:00:00 165.1 cm WEIGHT 2021-12-21 06:00:00 93.441 kg WEIGHT 2021-12-29 04:00:00 93.214 kg WEIGHT 2021-12-28 05:17:00 91.627 kg WEIGHT 2021-12-27 05:01:00 93.35 kg HEIGHT 2021-12-26 08:00:00 167.6 cm WEIGHT 2021-12-26 08:00:00 95.255 kg WEIGHT 2021-12-26 05:45:00 95.5 kg WEIGHT 2021-12-23 04:42:00 92.443 kg HEIGHT 2021-12-21 06:00:00 165.1 cm WEIGHT 2021-12-21 06:00:00 93.441 kg Systolic blood 2021-12-05 20:16:00 133 mm[Hg] [facility] pressure Medicine Diastolic blood 2021-12-05 20:16:00 77 mm[Hg] [facility] Medicine Heart rate 2021-12-05 20:16:00 85 /min [facility] Respiratory rate 2021-12-05 20:16:00 16 /min [facility] Body height 2021-12-05 20:16:00 167.6 cm [facility] Body weight 2021-12-05 20:16:00 95.255 kg [facility] BMI 2021-12-05 20:16:00 33.89 kg/m2 [facility] Oxygen saturation in 2021-12-05 20:16:00 97 /min [facility] Arterial blood by Medicine Pulse oximetry Systolic blood 2021-11-15 15:42:00 123 mm[Hg] [facility] Medicine Diastolic blood 2021-11-15 15:42:00 77 mm[Hg] [facility] Medicine Heart rate 2021-11-15 15:42:00 98 /min [facility] Body height 2021-11-15 15:42:00 167.6 cm [facility] Body weight 2021-11-15 15:42:00 99.338 kg [facility] BMI 2021-11-15 15:42:00 35.35 kg/m2 [facility] Systolic blood 2021-11-01 15:11:00 131 mm[Hg] [facility] Medicine Diastolic blood 2021-11-01 15:11:00 81 mm[Hg] [facility] Medicine Heart rate 2021-11-01 15:11:00 83 /min [facility] Body height 2021-11-01 15:11:00 167.6 cm [facility] Body weight 2021-11-01 15:11:00 99.338 kg [facility] BMI 2021-11-01 15:11:00 35.35 kg/m2 [facility] height 2021-10-26 10:10:00 68 [in_i] [facility] weight 2021-10-26 10:10:00 213.0 [lb_av] [facility] temperature 2021-10-26 10:10:00 98.2 [degF] [facility] bmi 2021-10-26 10:10:00 32.38 kg/m2 [facility] oximetry 2021-10-26 10:10:00 97 % [facility] respiratory rate 2021-10-26 10:10:00 17 /min Comm on [facility] blood pressure 2021-10-26 10:10:00 133 mm[Hg] [facility] - systolic [facility] blood pressure 2021-10-26 10:10:00 73 mm[Hg] [facility] HEIGHT 2021-10-16 07:04:00 167.6 cm WEIGHT 2021-10-16 07:04:00 99.2 kg HEIGHT 2021-10-12 11:50:00 167.6 cm WEIGHT 2021-10-12 11:50:00 102.059 kg HEIGHT 2021-10-16 07:04:00 167.6 cm WEIGHT 2021-10-16 07:04:00 99.2 kg HEIGHT 2021-10-12 11:50:00 167.6 cm WEIGHT 2021-10-12 11:50:00 102.059 kg HEIGHT 2021-10-16 07:04:00 167.6 cm WEIGHT 2021-10-16 07:04:00 99.2 kg HEIGHT 2021-10-12 11:50:00 167.6 cm WEIGHT 2021-10-12 11:50:00 102.059 kg WEIGHT 2021-10-05 06:00:00 102.5 kg WEIGHT 2021-10-03 06:00:00 102.5 kg WEIGHT 2021-10-02 05:02:00 102.51 kg WEIGHT 2021-10-01 06:00:00 102.5 kg WEIGHT 2021-09-30 06:00:00 102.513 kg HEIGHT 2021-09-29 22:03:00 167.6 cm WEIGHT 2021-09-29 22:03:00 102.513 kg WEIGHT 2021-10-05 06:00:00 102.5 kg WEIGHT 2021-10-03 06:00:00 102.5 kg WEIGHT 2021-10-02 05:02:00 102.51 kg WEIGHT 2021-10-01 06:00:00 102.5 kg WEIGHT 2021-09-30 06:00:00 102.513 kg HEIGHT 2021-09-29 22:03:00 167.6 cm WEIGHT 2021-09-29 22:03:00 102.513 kg WEIGHT 2021-10-05 06:00:00 102.5 kg WEIGHT 2021-10-03 06:00:00 102.5 kg WEIGHT 2021-10-02 05:02:00 102.51 kg WEIGHT 2021-10-01 06:00:00 102.5 kg WEIGHT 2021-09-30 06:00:00 102.513 kg HEIGHT 2021-09-29 22:03:00 167.6 cm WEIGHT 2021-09-29 22:03:00 102.513 kg height 2021-09-27 10:20:00 68 [in_i] [facility] weight 2021-09-27 10:20:00 226.7 [lb_av] [facility] temperature 2021-09-27 10:20:00 97.5 [degF] [facility] bmi 2021-09-27 10:20:00 34.47 kg/m2 [facility] oximetry 2021-09-27 10:20:00 95 % [facility] respiratory rate 2021-09-27 10:20:00 18 /min Comm on [facility] blood pressure 2021-09-27 10:20:00 139 mm[Hg] [facility] - systolic [facility] blood pressure 2021-09-27 10:20:00 80 mm[Hg] [facility] diastolic [facility] Systolic blood 2021-09-25 18:30:00 151 mm[Hg] Univer sity of [facility] Diastolic blood 2021-09-25 18:30:00 84 mm[Hg] [facility] 2021-09-25 18:30:00 60 /min [facility] Respiratory rate 2021-09-25 18:30:00 18 /min [facility] saturation in 2021-09-25 18:30:00 96 /min [facility] Arterial blood by [facility] Pulse oximetry Branch Body temperature 2021-09-25 15:53:00 37.5 Sweetie [facility] Body height 2021-09-25 15:53:00 167.6 cm [facility] Body weight 2021-09-25 15:53:00 106.595 kg [facility] BMI 2021-09-25 15:53:00 37.93 kg/m2 [facility] blood pressure 2021-08-21 15:00:00 72 mm[Hg] [facility] - diastolic [facility] height 2021-08-21 15:00:00 68 [in_i] [facility] weight 2021-08-21 15:00:00 233.3 [lb_av] [facility] temperature 2021-08-21 15:00:00 97.5 [degF] Common S [facility] bmi 2021-08-21 15:00:00 35.47 kg/m2 [facility] oximetry 2021-08-21 15:00:00 96 % Common [facility] respiratory rate 2021-08-21 15:00:00 18 /min Comm on [facility] blood pressure 2021-08-21 15:00:00 138 mm[Hg] [facility] - systolic [facility] height 2021-08-21 15:00:00 68 [in_i] [facility] weight 2021-08-21 15:00:00 233.3 [lb_av] [facility] temperature 2021-08-21 15:00:00 97.5 [degF] [facility] bmi 2021-08-21 15:00:00 35.47 kg/m2 [facility] oximetry 2021-08-21 15:00:00 96 % [facility] respiratory rate 2021-08-21 15:00:00 18 /min Comm on [facility] blood pressure 2021-08-21 15:00:00 138 mm[Hg] [facility] - systolic [facility] blood pressure 2021-08-21 15:00:00 72 mm[Hg] [facility] - diastolic [facility] Systolic blood 2022-04-04 16:00:00 148 mm[Hg] [facility] Diastolic blood 2022-04-04 16:00:00 96 mm[Hg] [facility] Heart rate 2022-04-04 16:00:00 84 /min [facility] Body temperature 2022-04-04 16:00:00 36.39 Sweetie [facility] Respiratory rate 2022-04-04 16:00:00 18 /min [facility] Oxygen saturation in 2022-04-04 16:00:00 99 /min [facility] Arterial blood by Medical Ce nter Pulse oximetry Body weight 2022-04-04 09:24:00 86.6 kg [facility] BMI 2022-04-04 09:24:00 28.19 kg/m2 [facility] Body height 2022-04-03 15:15:00 175.3 cm [facility] Systolic blood 2022-04-02 05:56:00 187 mm[Hg] [facility] Diastolic blood 2022-04-02 05:56:00 108 mm[Hg] [facility] Heart rate 2022-04-02 05:56:00 97 /min [facility] Body temperature 2022-04-02 05:56:00 35.83 Sweetie [facility] Respiratory rate 2022-04-02 05:56:00 18 /min [facility] Body height 2022-04-02 05:56:00 167.6 cm [facility] Body weight 2022-04-02 05:56:00 88.451 kg [facility] BMI 2022-04-02 05:56:00 31.47 kg/m2 [facility] Oxygen saturation in 2022-04-02 05:56:00 100 /min [facility] Arterial blood by Medical Ce nter Pulse oximetry Procedures Procedure Date / Time Performing Clinician Source Performed COMPREHENSIVE METABOLIC 2022-05-02 18:36:[address] [facility] Medicine CBC W/AUTO DIFF WITH 2022-05-02 18:36:00 Kayla Smart [facility] POCT-GLUCOSE METER 2022-04-04 11:29:00 Haily Reyes [facility] POCT-GLUCOSE METER 2022-04-04 07:16:00 Bui, [facility] BASIC METABOLIC PANEL 2022-04-04 04:40:00 Kobe [facility] CBC (HEMOGRAM ONLY) 2022-04-04 04:40:00 Lauro Bullockie [facility] MAGNESIUM 2022-04-04 04:40:00 Maryanne Sandoval [facility] POCT-GLUCOSE METER 2022-04-03 20:55:00 Ramya [facility] POCT-GLUCOSE METER 2022-04-03 16:22:00 Ramya [facility] POCT-GLUCOSE METER 2022-04-03 11:05:00 Ramya [facility] POTASSIUM 2022-04-03 09:45:00 Gaviota, [facility] MAGNESIUM 2022-04-03 09:45:00 Gaviota, [facility] POCT-GLUCOSE METER 2022-04-03 09:37:00 Ramya [facility] BASIC METABOLIC PANEL 2022-04-03 01:30:00 Kobe Monserrat [facility] CBC (HEMOGRAM ONLY) 2022-04-03 01:30:00 [facility] 2022-04-03 01:30:00 Mae Turpin [facility] CT BRAIN WITHOUT IV 2022-04-02 20:46:00 Nay Valderrama [facility] POCT-GLUCOSE METER 2022-04-02 20:05:00 Ramya [facility] POCT-GLUCOSE METER 2022-04-02 13:26:00 Ramya [facility] POCT-ACT 2022-04-02 10:05:00 Ramya [facility] POCT-ACT 2022-04-02 09:52:00 Ramya [facility] POCT-ACT 2022-04-02 09:24:00 [facility]ACT 2022-04-02 08:57:00 Ramya [facility] INSERTION, STENT, CORONARY 2022-04-02 07:56:00 [facility] CBC W/PLT COUNT & AUTO 2022-04-02 06:32:00 Ramya [facility] DIFFERENTIAL [facility] BASIC METABOLIC PANEL 2022-04-02 06:32:00 [facility] PT/APTT 2022-04-02 06:32:00 Ramya [facility] CBC W/PLT COUNT & AUTO 2022-04-02 06:32:00 [facility] DIFFERENTIAL [facility] ECG 12-LEAD 2022-04-02 06:26:53 Ramya [facility] ECG 12-LEAD 2022-04-02 06:26:53 Unknown, Hl7 [facility] ECG 12-LEAD 2022-04-02 06:26:53 Unknown, Hl7 [facility] CARDIAC CATH REPORT - SCAN 2022-04-02 00:00:00 [facility] EKG-SCANNED 2022-04-02 00:00:00 Provider, Neo [facility] COMPREHENSIVE METABOLIC 2022-03-06 14:57:[address] [facility] Medicine CBC W/AUTO DIFF WITH 2022-03-06 14:57:00 Kayla Smart [facility] MR BRAIN WITH & WITHOUT IV 2022-02-26 15:00:[address] [facility] ROLLING WALKER WITH SEAT 2022-01-30 12:28:58 [facility] AMB REF TO ONCOLOGY SOCIAL 2022-01-30 12:20:35 [facility] Medicine WALKERS 2022-01-30 12:20:07 [facility] CBC W/AUTO DIFF WITH 2022-01-30 12:17:39 [facility] PLATELETS Medicine COMPREHENSIVE METABOLIC 2022-01-30 12:17:39 [facility] CBC W/AUTO DIFF WITH 2022-01-16 16:00:50 [facility] BASIC METABOLIC PANEL 2022-01-16 16:00:50 [facility] POCT-GLUCOSE METER 2021-12-29 07:57:00 [facility] & 2021-12-29 05:58:00 Topher [facility] REF LABS) [facility] XR CHEST 1 VIEW PORTABLE / 2021-12-29 04:59:00 Brandon Pierce [facility] BASIC METABOLIC PANEL 2021-12-29 04:27:00 Brandon Pierce [facility] CBC (HEMOGRAM ONLY) 2021-12-29 04:27:00 Brandon Pierce [facility] POCT-GLUCOSE METER 2021-12-28 21:14:00 Ramya [facility] POCT-GLUCOSE METER 2021-12-28 17:22:00 Ramya [facility] POCT-GLUCOSE METER 2021-12-28 12:27:00 Ramya [facility] POCT-GLUCOSE METER 2021-12-28 08:36:00 Ramya [facility] XR CHEST 1 VIEW PORTABLE / 2021-12-28 05:23:00 Brandon Pierce [facility] BASIC METABOLIC PANEL 2021-12-28 04:17:00 Brandon Pierce [facility] CBC (HEMOGRAM ONLY) 2021-12-28 04:17:00 Brandon Pierce [facility] POCT-GLUCOSE METER 2021-12-28 00:18:00 Ramya [facility] POCT-GLUCOSE METER 2021-12-27 21:18:00 Man Bui [facility] LIMITED 2D ECHOCARDIOGRAM 2021-12-27 14:06:48 Tiffany Bullock [facility] XR CHEST 1 VIEW PORTABLE / 2021-12-27 05:00:[address] [facility] BASIC METABOLIC PANEL 2021-12-27 04:47:[address] [facility] MAGNESIUM 2021-12-27 04:47:[address] [facility] PHOSPHORUS 2021-12-27 04:47:[address] [facility] CBC (HEMOGRAM ONLY) 2021-12-27 04:47:00 Topher [facility] CALCIUM, IONIZED 2021-12-27 04:47:00 Zurdo Noland [facility] ECG 12-LEAD 2021-12-27 04:33:11 [facility] 2021-12-27 04:33:11 Unknown, Hl7 [facility] ECG 12-LEAD 2021-12-27 04:33:11 Unknown, Hl7 [facility] POCT-GLUCOSE METER 2021-12-27 00:49:00 Ramya [facility] POCT-GLUCOSE METER 2021-12-26 12:45:00 Ramya [facility] POCT-GLUCOSE METER 2021-12-26 09:47:00 Ramya [facility] POCT-GLUCOSE METER 2021-12-26 06:19:00 [place] [facility] POCT-GLUCOSE METER 2021-12-26 05:15:00 Ramya [facility] ECG 12-LEAD 2021-12-26 04:26:33 Unknown, Hl7 [facility] ECG 12-LEAD 2021-12-26 04:26:33 Unknown, Hl7 [facility] ECG 12-LEAD 2021-12-26 04:26:33 Unknown, Hl7 [facility] POCT-GLUCOSE METER 2021-12-26 04:06:00 BuiCarliMan [facility] RRL CRITICAL LABS 2021-12-26 03:59:00 [facility] (ABG,NA,K,H&H,GLUCOSE) Medical C enter BLOOD GAS, ARTERIAL 2021-12-26 03:59:00 [place], [facility] SODIUM NA-STAT LAB 2021-12-26 03:59:00 [facility] POTASSIUM-STAT LAB 2021-12-26 03:59:00 [facility] GLUCOSE-STAT LAB 2021-12-26 03:59:00 [facility] HGB/HCT (H&H) - STAT LAB 2021-12-26 03:59:00 [place] [facility] BASIC METABOLIC PANEL 2021-12-26 03:59:00 [place] [facility] MAGNESIUM 2021-12-26 03:59:00 [facility] PHOSPHORUS 2021-12-26 03:59:00 [facility] (HE[facility] ONLY) 2021-12-26 03:59:00 [facility]/INR 2021-12-26 03:59:00 [facility] APTT 2021-12-26 03:59:00 [facility] FIBRINOGEN 2021-12-26 03:59:00 [facility] CALCIUM, IONIZED 2021-12-26 03:59:00 [facility] LACTIC ACID, ARTERIAL 2021-12-26 03:59:00 [facility] XR CHEST 1 VIEW PORTABLE / 2021-12-26 02:15:00 [place] [facility] RRL CRITICAL LABS 2021-12-26 01:12:00 LubnaTushar [facility] (ABG,NA,K,H&H,GLUCOSE) [facility] enter BLOOD GAS, ARTERIAL 2021-12-26 01:12:00 [place] SODIUM NA-STAT LAB 2021-12-26 01:12:00 [place] POTASSIUM-STAT LAB 2021-12-26 01:12:00 [place] GLUCOSE-STAT LAB 2021-12-26 01:12:00 [place] HGB/HCT (H&H) - STAT LAB 2021-12-26 01:12:00 [place]RL CRITICAL LABS 2021-12-25 23:23:00 [place], [facility] (ABG,NA,K,H&H,GLUCOSE) [facility] C enter BLOOD GAS, ARTERIAL 2021-12-25 23:23:00 [facility] SODIUM NA-STAT LAB 2021-12-25 23:23:00 [facility] POTASSIUM-STAT LAB 2021-12-25 23:23:00 [place], [facility] GLUCOSE-STAT LAB 2021-12-25 23:23[facility] - STAT LAB 2021-12-25 23:23:00 [facility] BLOOD GAS, ARTERIAL 2021-12-25 22:11:00 [facility] GLUCOSE-STAT LAB 2021-12-25 22:11:00 [facility] POTASSIUM-STAT LAB 2021-12-25 22:11:00 [facility] RRL CRITICAL LABS 2021-12-25 22:11:00 [facility] (ABG,NA,K,H&H,GLUCOSE) Medical C enter SODIUM NA-STAT LAB 2021-12-25 22:11:00 [place] [facility] HGB/HCT (H&H) - STAT LAB 2021-12-25 22:11:00 Zurdo Noland I [facility] POCT-GLUCOSE METER 2021-12-25 19:30:00 Man Bui [facility] XR CHEST 1 VIEW PORTABLE / 2021-12-25 19:21:00 Pilo Obando [facility] BEDSIDE [facility] BLOOD GAS, ARTERIAL 2021-12-25 19:21:00 Olayinka [facility] MAGNESIUM 2021-12-25 19:19:[address] [facility] PHOSPHORUS 2021-12-25 19:19:[address] [facility] COMPREHENSIVE METABOLIC 2021-12-25 19:19:00 [facility] CALCIUM, IONIZED 2021-12-25 19:19:00 [facility] PROTHROMBIN TIME/INR 2021-12-25 19:19:00 [facility] APTT 2021-12-25 19:19:00 [facility] LACTIC ACID, ARTERIAL 2021-12-25 19:19:00 [facility] OXYGEN SATURATION, MEASURED 2021-12-25 19:19:00 [facility] CBC W/PLT COUNT & AUTO 2021-12-25 19:19:00 Topher [facility] DIFFERENTIAL [facility] HEPATIC FUNCTION PANEL 2021-12-25 19:19:00 Topher [facility] CBC W/PLT COUNT & AUTO 2021-12-25 19:19:00 Topher [facility] PREPARE RBC 2021-12-25 19:09:00 Ai[facility] POCT-ACT 2021-12-25 18:14:00 [facility] RRL CRITICAL LABS 2021-12-25 17:56:05 Clay [facility] (ABG,NA,K,H&H,GLUCOSE) Medical C enter CALCIUM, IONIZED 2021-12-25 17:56:05 Clay [facility] BLOOD GAS, ARTERIAL 2021-12-25 17:56:05 Clay [facility] SODIUM NA-STAT LAB 2021-12-25 17:56:05 Clay [facility] POTASSIUM-STAT LAB 2021-12-25 17:56:05 Clay [facility] GLUCOSE-STAT LAB 2021-12-25 17:56:05 Clay [facility] HGB/HCT (H&H) - STAT LAB 2021-12-25 17:56:05 Clay [facility] POCT-ACT 2021-12-25 17:55:00 Ram[facility] POCT-ACT 2021-12-25 17:09:00 Ramya [facility] RRL CRITICAL LABS 2021-12-25 17:05:28 [place] Williamson [facility] (ABG,NA,K,H&H,GLUCOSE) Medical C enter CALCIUM, IONIZED 2021-12-25 17:05:28 Clay [facility] BLOOD GAS, ARTERIAL 2021-12-25 17:05:28 Clay [facility] SODIUM NA-STAT LAB 2021-12-25 17:05:28 Clay [facility] POTASSIUM-STAT LAB 2021-12-25 17:05:28 Clay [facility] GLUCOSE-STAT LAB 2021-12-25 17:05:28 Ludin Williamson [facility] HGB/HCT (H&H) - STAT LAB 2021-12-25 17:05:28 Ludin Williamson [facility] ANESTHESIA PERIPHERAL BLOCK 2021-12-25 16:43:56 Ludin Williamson [facility] POCT-ACT 2021-12-25 16:43:00 Ramya Man [facility] ANESTHESIA DAISY 2021-12-25 15:53:46 Ludin Williamson [facility] RRL CRITICAL LABS 2021-12-25 15:29:06 Ludin Williamson [facility] (ABG,NA,K,H&H,GLUCOSE) Medical C enter CALCIUM, IONIZED 2021-12-25 15:29:06 Clay [facility] BLOOD GAS, ARTERIAL 2021-12-25 15:29:06 Clay [facility] SODIUM NA-STAT LAB 2021-12-25 15:29:06 Clay [facility] POTASSIUM-STAT LAB 2021-12-25 15:29:06 Clay [facility] GLUCOSE-STAT LAB 2021-12-25 15:29:06 Clay [facility] HGB/HCT (H&H) - STAT LAB 2021-12-25 15:29:06 Ludin Williamson [facility] ROBOTIC BYPASS,AORTO 2021-12-25 14:10:00 Airam [facility] CORONARY [facility] PROCEDURE W/ DAVINCI XI 2021-12-25 14:10:00 Airam [facility] ECHOCARDIOGRAM, 3D, 2021-12-25 14:10:00 [facility] TRANSES[facility]AL [facility] POCT-GLUCOSE METER 2021-12-25 11:52:00 Ramya [facility] POCT-GLUCOSE METER 2021-12-25 07:59:00 Ramya Man [facility] CBC (HEMOGRAM ONLY) 2021-12-25 00:50:00 Anthony [facility] COMPREHENSIVE METABOLIC 2021-12-25 00:50:00 Anthony [facility] TYPE AND SCREEN, AUTOMATED 2021-12-25 00:50:00 Ramya [facility] POCT-GLUCOSE METER 2021-12-24 21:37:00 Ramya [facility] POCT-GLUCOSE METER 2021-12-24 17:33:00 Ramya [facility] POCT-GLUCOSE METER 2021-12-24 12:30:00 Ramya [facility] ECG 12-LEAD 2021-12-24 11:56:01 [facility] POCT-GLUCOSE METER 2021-12-24 07:57:00 Ramya [facility] CBC (HEMOGRAM ONLY) 2021-12-24 03:18:00 Ramya [facility] BASIC METABOLIC PANEL 2021-12-24 03:18:00 [facility]ya [facility] HEMOGLOBIN A1C 2021-12-24 03:18:00 Stan [facility] LIPID PANEL 2021-12-24 03:18:00 Stan [facility] POCT-GLUCOSE METER 2021-12-23 21:36:00 Ramya [facility] POCT-GLUCOSE METER 2021-12-23 17:21:00 Ramya [facility] POCT-GLUCOSE METER 2021-12-23 12:19:00 Ramya [facility] POCT-GLUCOSE METER 2021-12-23 07:47:00 [facility] CBC (HEMOGRAM ONLY) 2021-12-23 03:23:00 Ramya [facility] BASIC METABOLIC PANEL 2021-12-23 03:23:00 Man Bui [facility] POCT-GLUCOSE METER 2021-12-22 22:24:00 Ramya [facility] SARS-COV2/RT-PCR ([facility] & 2021-12-22 18:13:00 Topher [facility] REF LABS) [facility] POCT-GLUCOSE METER 2021-12-22 12:02:00 Ramya [facility] 2D ECHO W/ DOPPLER 2021-12-22 08:29:15 Brandon Pierce [facility] (CW/PW/COLOR) [facility] POCT-GLUCOSE METER 2021-12-22 07:16:00 Ramya [facility] CTA CHEST 2021-12-22 05:39:00 Azeb Piercechasurekha Can [facility] CTA ABDOMEN & PELVIS 2021-12-22 05:39:00 Brandon Pierce [facility] BASIC METABOLIC PANEL 2021-12-22 03:33:00 Ramya Man [facility] Fuentes [facility] MAGNESIUM 2021-12-22 03:33:00 Eleuterio Macias [facility] CBC W/PLT COUNT & AUTO 2021-12-22 03:33:00 Juan Luis [facility] DIFFERENTIAL [facility] CBC W/PLT COUNT & AUTO 2021-12-22 03:33:00 Eleuterio Macias [facility] DIFFERENTIAL [facility] POCT-GLUCOSE METER 2021-12-21 21:30:00 Ramya [facility] CAROTID DOPPLER BILATERAL 2021-12-21 18:52:00 Brandon Pierce [facility] POCT-GLUCOSE METER 2021-12-21 16:20:00 Ramya [facility] CATHETERIZATION, HEART, 2021-12-21 14:29:00 [facility] LEFT, WITH PERCUTANEOUS [facility] CORONARY INTERVENTION ECG 12-LEAD 2021-12-21 08:01:42 Koetting, Monserrat [facility] ECG 12-LEAD 2021-12-21 08:01:42 Unknown, Hl7 [facility] ECG 12-LEAD 2021-12-21 08:01:42 Unknown, Hl7 [facility] CBC (HEMOGRAM ONLY) 2021-12-21 07:43:00 Kojayy, Monserrat [facility] BASIC METABOLIC PANEL 2021-12-21 07:43:[address] [facility] PT/APTT 2021-12-21 07:43:[address] [facility] VASCULAR DIAGRAM -SCAN 2021-12-21 00:00:00 Provider [facility] CARDIAC CATH REPORT - SCAN 2021-12-21 00:00:00 Provider, Neo [facility] MR BRAIN WITH & WITHOUT IV 2021-12-20 13:59:[address] [facility] ELECTROCARDIOGRAM COMPLETE 2021-12-05 20:19:00 Man Bui [facility] ELECTROCARDIOGRAM COMPLETE 2021-12-05 15:19:00 B [facility] MR BRAIN WITH & WITHOUT IV 2021-11-02 14:25:00 Aden [place] do [place] [facility] O[facility] MRI HEAD 2021-11-02 07:38:00 Kayla Smart [facility] MD [place] [facility] Center TEMPUS XT TISSUE NGS 2021-11-01 15:00:35 [facility] CBC W/AUTO DIFF WITH 2021-11-01 09:45:54 [facility] COMPREHENSIVE METABOLIC 2021-11-01 09:45:17 [facility] PT INSTR GIVEN - TOBACCO 2021-10-31 12:30:16 [facility] POCT-GLUCOSE METER 2021-10-23 11:06:00 Luisito Cameron [facility] POCT-GLUCOSE METER 2021-10-23 09:23:00 Home, [facility] POCT-GLUCOSE METER 2021-10-23 07:15:00 [facility] BASIC METABOLIC PANEL 2021-10-23 04:38:00 [facility] CBC (HEMOGRAM ONLY) 2021-10-23 04:38[facility] 2021-10-23 04:38[facility]00 [facility] 2021-10-23 04:38:00 [facility] POCT-GLUCOSE METER 2021-10-22 21:22:00 [facility] POCT-[facility]UCOSE MET[facility] 2021-10-22 [facility]:30[facility] 2021-10-22 11:55:00 [facility] POCT-GLUCOSE METER 2021-10-22 07:39:00 [facility] BASIC [facility]OLIC PANEL 2021-10-22 05:03:00 [facility] CBC (HEMOGRAM ONLY) 2021-10-22 05:03:00 [facility] 2021-10-22 05:03:00 [facility] 2021-10-22 05:03:00 [facility] POCT-GLUCOSE METER 2021-10-21 20:34:00 [facility] POCT-GLUCOSE METER 2021-10-21 17:28:00 [facility] POCT-GLUCOSE METER 2021-10-21 11:23:00 [facility] POCT-GLUCOSE METER 2021-10-21 08:07:00 [facility] BASIC METABOLIC PANEL 2021-10-21 04:22:00 [facility] CBC (HEMOGRAM ONLY) 2021-10-21 04:22:00 [facility] MAGNESIUM 2021-10-21 04:22:00 [facility] PHOSPHORUS 2021-10-21 04:22:00 [facility] POCT-GLUCOSE METER 2021-10-20 20:18:00 [facility] POCT-[facility]SE METER 2021-10-20 17:25:00 [facility] POCT-GLUCOSE METER 2021-10-20 12:02:00 [facility] POCT-[facility]UCOSE METER 2021-10-20 07:16:00 [facility] BASIC METABOLIC PANEL 2021-10-20 05:03:00 [facility] CBC (HEMOGRAM ONLY) 2021-10-20 05:03:00 [facility] MAGNESIUM 2021-10-20 05:03:00 [facility] PHOSPHORUS 2021-10-20 05:03:00 [facility] POCT-GLUCOSE METER 2021-10-19 21:24:00 [facility] POCT-GLUCOSE METER 2021-10-19 17:30:00 [facility] POCT-GLUCOSE METER 2021-10-19 12:48:00 [facility] POCT-GLUCOSE METER 2021-10-19 09:08[facility] 2021-10-19 04:55:00 [facility] CBC (HEMOGRAM ONLY) 2021-10-19 04:55:00 [facility] MAGNESIUM 2021-10-19 04:55:00 [facility] PHOSPHORUS 2021-10-19 04:55:00 [facility] POCT-GLUCOSE METER 2021-10-18 20:40:00 [facility] POCT-[facility]UCOSE METER 2021-10-18 16:22:00 [facility] POCT-GLUCOSE METER 2021-10-18 11:16:00 [facility] POCT-GLUCOSE METER 2021-10-18 06:21:[facility]EL 2021-10-18 04:08:00 [facility] CBC (HEMOGRAM ONLY) 2021-10-18 04:08:00 [facility] MAGNESIUM 2021-10-18 04:08:00 [facility] PHOSPHORUS 2021-10-18 04:08:00 [facility] POCT-GLUCOSE METER 2021-10-17 20:21:00 [facility] BASIC METABOLIC PANEL 2021-10-17 18:29:00 Ana Martines [facility] POCT-GLUCOSE METER 2021-10-17 16:47:00 [facility] MR BRAIN WITH & WITHOUT IV 2021-10-17 16:06:[address] [facility] PROCALCITONIN 2021-10-17 14:51:00 Ana Martines [facility] POCT-GLUCOSE METER 2021-10-17 11:10:00 [facility] POCT-GLUCOSE METER 2021-10-17 07:58:00 Luisito Cameron [facility] OSI MRI HEAD 2021-10-17 07:38:00 Kayla Smart [facility] BASIC METABOLIC PANEL 2021-10-17 04:23:00 [facility] CBC (HEMOGRAM ONLY) 2021-10-17 04:23:00 [facility] MAGNESIUM 2021-10-17 04:23:00 [facility] PHOSPHORUS 2021-10-17 04:23:00 [facility] RRL CRITICAL LABS 2021-10-16 19:27:26 Brenda Venegas [facility] (ABG,NA,K,H&H,GLUCOSE) Medical C enter BLOOD GAS, ARTERIAL 2021-10-16 19:27:26 Brenda Venegas [facility] SODIUM NA-STAT LAB 2021-10-16 19:27:26 [facility] POTASSIUM-STAT LAB 2021-10-16 19:27:26 [facility] GLUCOSE-STAT LAB 2021-10-16 19:27:26 [facility] H[facility]/HCT (H&H) - STAT LAB 2021-10-16 19:27:26 [facility] TISSUE EXAM 2021-10-16 16:54:00 Luisito Cameron [facility] ABORH, MANUAL 2021-10-16 13:30:00 Chandni Morales [facility] POCT-GLUCOSE METER 2021-10-16 12:29:00 Luisito Cameron [facility] CRANIECTOMY OR CRANIOTOMY, 2021-10-16 12:18:00 Luisito Cameron [facility] FOR EXCISION OF BRAIN Medical Ce nter NEOPLASM PROCEDURE, USING FRAMELESS 2021-10-16 12:18:00 Luisito Cameron [facility] STEREOTAXY [facility] PROCEDURE, USING OPERATING 2021-10-16 12:18:00 Luisito Cameron [facility] MICROSCOPE [facility] US INTRAOPERATIVE 2021-10-16 12:18:00 Luisito Cameron [facility] POCT-GLUCOSE METER 2021-10-16 07:20:00 Luisito Cameron [facility] TEMPUS XT TISSUE NGS 2021-10-16 00:00:00 [facility] SARS-COV2/RT-PCR ([facility] & 2021-10-11 12:35:00 [facility] PROTHROMBIN TIME/INR 2021-10-11 12:35:00 Home [facility] APTT 2021-10-11 12:35:00 Home [facility] URINALYSIS W/ REFLEX URINE 2021-10-11 12:35:00 Luisito Cameron [facility] CULTURE [facility] TYPE AND SCREEN, AUTOMATED 2021-10-11 12:35:00 Luisito Cameron [facility] PT INSTR GIVEN - TOBACCO 2021-10-10 14:59:09 [facility] POCT-GLUCOSE METER 2021-10-05 12:23:00 [facility] POCT-[facility]SE METER 2021-10-05 07:53:00 Gregory [facility] CBC W/PLT COUNT & AUTO 2021-10-05 05:26:00 Gregory [facility] BASIC METABOLIC PANEL 2021-10-05 05:26:00 Gregory Barbaraye [facility] MAGNESIUM 2021-10-05 05:26:00 [facility] W/PLT COUNT & AUTO 2021-10-05 05:26:00 Gregory, [facility] POCT-GLUCOSE METER 2021-10-04 20:54:00 Gregory, Barbara Madeleine [facility] POCT-GLUCOSE METER 2021-10-04 17:34:00 Gregory [facility] CTA HEART CORONARY WITH 2021-10-04 16:56:00 Mary Harris [facility] CALCIUM EVALUATION WITH [facility] CHEST 2021-10-04 14:48:00 Kayla Smart [facility] POCT-GLUCOSE METER 2021-10-04 11:42:00 Barbara Jenkins [facility] POCT-GLUCOSE METER 2021-10-04 08:02:00 Gregory, Barbara [facility] BASIC METABOLIC PANEL 2021-10-04 04:59:00 Charissa Corral [facility] MAGNESIUM 2021-10-04 04:59:00 Charissa Corral [facility] CBC W/PLT COUNT & AUTO 2021-10-04 04:59:[address] [facility] DIFFERENTIAL [facility] CBC W/PLT COUNT & AUTO 2021-10-04 04:59:00 Charissa Corral HI [facility] POCT-GLUCOSE METER 2021-10-03 21:52:00 [facility] POCT-GLUCOSE METER 2021-10-03 17:40:00 [facility] OSI PET CT SKULL TO MID 2021-10-03 14:49:00 Kayla Smart [facility] POCT-GLUCOSE METER 2021-10-03 12:49:00 Gadicherla, [facility] NM MYOCARDIAL PERFUSION 2021-10-03 08:42:[address] [facility] PET/CT (REST & STRESS) Lucia Daigle enter TREADMILL 2021-10-03 08:37:16 Unknown, Hl7 Doctor [facility] TOLERANCE(NON-NUCLEAR Medical Ce nter TREADMILL) ECG 12-LEAD 2021-10-03 08:37:12 Unknown, Hl7 [facility] ECG 12-LEAD 2021-10-03 08:37:12 Unknown, Hl7 [facility] POCT-GLUCOSE METER 2021-10-03 07:25:00 [facility] BASIC METABOLIC PANEL 2021-10-03 04:57:00 Charissa Corral ESTHER I [facility] MAGNESIUM 2021-10-03 04:57:00 Charissa Corral [facility] CBC W/PLT COUNT & AUTO 2021-10-03 04:57:00 Charissa Corral Pilo HI [facility] CBC W/PLT COUNT & AUTO 2021-10-03 04:57:00 Charissa Corral Pilo HI [facility] POCT-GLUCOSE METER 2021-10-02 20:49:00 [facility] POCT-GLUCOSE METER 2021-10-02 17:52:[address] POCT-GLUCOSE METER 2021-10-02 11:36:[address] [facility] POCT-GLUCOSE METER 2021-10-02 07:18:00 [facility] BASIC METABOLIC PANEL 2021-10-02 04:57:00 Charissa Corraldelio SANTANA I [facility] MAGNESIUM 2021-10-02 04:57:00 Charissa Corral [facility] CBC W/PLT COUNT & AUTO 2021-10-02 04:57:00 Charissa Corraldelio Daigle HI [facility] LIPID PANEL 2021-10-02 04:57:00 Dina Plascencia [facility] CBC W/PLT COUNT & AUTO 2021-10-02 04:57:00 Ellis Charissa Maria Alejandra Daigle HI [facility] POCT-GLUCOSE METER 2021-10-01 22:09:00 [facility] SARS-COV2/RT-PCR ([facility] & 2021-10-01 20:26:00 Bakari Vance [facility] REF LABS) [facility] MR BRAIN WITH & WITHOUT IV 2021-10-01 18:38:00 Bakari Vance [facility] CONTRAST [facility] 2D ECHO W/ DOPPLER 2021-10-01 12:44:44 Charissa Corral [facility] (CW/PW/COLOR) [facility] POCT-GLUCOSE METER 2021-10-01 11:48:00 Gadicherla, [facility] POCT-GLUCOSE METER 2021-10-01 07:42:00 Gadicherla, [facility] OSI MRI HEAD 2021-10-01 07:38:00 Kayla Smart [facility] BASIC METABOLIC PANEL 2021-10-01 05:07:00 Charissa Corral [facility] MAGNESIUM 2021-10-01 05:07:00 Charissa Corral [facility] METHYLMALONIC ACID 2021-10-01 05:07:00 Cuba Grissom [facility] CBC W/PLT COUNT & AUTO 2021-10-01 05:07:00 Charissa Corral [facility] DIFFERENTIAL [facility] CBC W/PLT COUNT & AUTO 2021-10-01 05:07:00 Charissa Corral [facility] DIFFERENTIAL [facility] POCT-GLUCOSE METER 2021-09-30 21:39:00 Gadicherla, [facility] OSI LUMBAR PUNCTURE W 2021-09-30 21:30:00 Kayla Smart [facility] POCT-GLUCOSE METER 2021-09-30 17:51:00 Gadicherla, [facility] OSI CT BRAIN 2021-09-30 14:48:00 Kayla Smart [facility] OSI CT CHEST ABDOMEN PELVIS 2021-09-30 14:48:00 Kayla Smart [facility] Center CT ABDOMEN/PELVIS WITH IV 2021-09-30 14:10:00 Gadicherraymundo [facility] CONTRAST [facility] CT CHEST WITH IV CONTRAST 2021-09-30 14:10:00 Gadicherwv, [facility] CYTOLOGY 2021-09-30 13:19:00 Celeste [facility] MENINGITIS/ENCEPHALITIS 2021-09-30 13:17:[address] [facility] CSF CULTURE + GRAM STAIN 2021-09-30 13:17:00 Celeste [facility] CSF CELL COUNT 2021-09-30 13:15:00 Celeste [facility] W/DIFFERENTIAL [facility] OLIGOCLONAL BANDS 2021-09-30 13:15:00 Celeste [facility] FLOW CYTOMETRY REQUISITION 2021-09-30 13:15:00 Germán Alonso [facility] GLUCOSE, CSF 2021-09-30 13:14:00 Celeste [facility] PROTEIN, CSF 2021-09-30 13:14:00 Celeste [facility] FL LUMBAR PUNCTURE 2021-09-30 13:10:00 Xander [facility] IMAGE-GUIDED [facility] FLOW CYTOMETRY 2021-09-30 12:40:00 Celeste [facility] POCT-GLUCOSE METER 2021-09-30 08:19:00 Xander [facility] CBC W/PLT COUNT & AUTO 2021-09-30 05:23:00 Charissa Corral [facility] DIFFERENTIAL [facility] CBC W/PLT COUNT & AUTO 2021-09-30 05:23:00 Charissa Corral [facility] DIFFERENTIAL [facility] ANTI-NUCLEAR ANTIBODY (SHANE) 2021-09-30 01:08:00 Celeste [facility] ANTI-NEUTROPHIL CYTOPLASMIC 2021-09-30 01:08:00 Celeste [facility] AB (ANCA) [facility] DOUBLE-STRANDED DNA (DSDNA) 2021-09-30 01:08:00 Celeste [facility] ANTIBODY [facility] CYCLIC CITRULLINATED 2021-09-30 01:08:00 Celeste [facility] PEPTIDE AB, IGG [facility] COMPLEMENT COMPONENT C4 2021-09-30 01:08:00 Celeste [facility] COMPLEMENT, TOTAL (CH50) 2021-09-30 01:08:00 Celeste [facility] TSH/FREE T4 IF INDICATED 2021-09-30 01:08:00 Celeste [facility] VITAMIN B12 AND FOLATE 2021-09-30 01:08:00 [facility] RPR 2021-09-30 01:08:00 Celeste [facility] RAPID DRUG SCREEN, URINE 2021-09-30 01:08:00 Celeste [facility] MAGNESIUM 2021-09-30 01:08:00 Charissa Corral [facility] SHANE TITER AND PATTERN 2021-09-30 01:08:00 Celeste [facility] CTA BRAIN 2021-09-30 00:54:00 Celeste [facility] CTA CAROTID 2021-09-30 00:54:00 Celeste [facility] XR CHEST 1 VIEW PORTABLE / 2021-09-30 00:00:[address] [facility] ECG 12-LEAD 2021-09-29 23:26:05 Charissa Corral [facility] ECG 12-LEAD 2021-09-29 23:26:05 Unknown, Hl7 [facility] ECG 12-LEAD 2021-09-29 23:26:05 Unknown, Hl7 [facility] ECG 12-LEAD 2021-09-29 23:23:56 Unknown, Hl7 [facility] ECG 12-LEAD 2021-09-29 23:23:56 Unknown, Hl7 [facility] BLOOD CULTURE 2021-09-29 23:09:00 Charissa Corral [facility] BLOOD CULTURE 2021-09-29 23:06:00 Charissa Corral Maria Alejandra [facility] CBC W/PLT+MANUAL DIFF 2021-09-29 23:06:00 Germán Alonso [facility] PROTHROMBIN TIME/INR 2021-09-29 23:06:00 Charissa Corral [facility] APTT 2021-09-29 23:06:00 [facility] COMPREHENSIVE METABOLIC 2021-09-29 23:06:00 Charissa Corral [facility] PANEL [facility] TSH 2021-09-29 23:06:00 Charissa Corral [facility] T4, FREE 2021-09-29 23:06:00 [facility] B-TYPE NATRIURETIC FACTOR 2021-09-29 23:06:00 Charissa Corral [facility] (BNP) [facility] C-REACTIVE PROTEIN 2021-09-29 23:06:00 Charissa Corral [facility] TOXICOLOGY SCREEN, SERUM 2021-09-29 23:06:00 Charissa Corral [facility] CBC W/PLT COUNT & AUTO 2021-09-29 23:06:00 Charissa Corral [facility] MAGNESIUM 2021-09-29 23:06:00 Charissa Corral [facility] LIPID PANEL 2021-09-29 23:06:00 Charissa Corral [facility] HEMOGLOBIN A1C 2021-09-29 23:06:00 Charissa Corral [facility] CBC WITH PLATELET COUNT + 2021-09-29 23:06:00 Germán Alonso [facility] MANUAL [facility]FF [facility] CBC W/PLT COUNT & AUTO 2021-09-29 23:06:00 Charissa Corral [facility] DIFFERENTIAL [facility] (CELLAVISION MANUAL DIFF) 2021-09-29 23:06:00 Celeste chel [facility] POCT-GLUCOSE METER 2021-09-29 22:09:00 Makayla Rausch [facility] OSI CHEST 2021-09-29 07:38:00 Kayla Smart [facility] URINALYSIS 2021-09-25 17:06:00 Ar Willis [facility] TROPONIN I 2021-09-25 16:15:00 Ar Willis [facility] COMP. METABOLIC PANEL 2021-09-25 16:15:00 Ar Willis [facility] ([id number]) [facility] CBC WITH DIFF 2021-09-25 16:15:00 Ar Willis [facility] PROTHROMBIN TIME / INR 2021-09-25 16:15:00 Ar Willis [facility] N-TERMINAL PRO-BNP 2021-09-25 16:15:00 Ar Willis [facility] NOTICE OF PRIVACY PRACTICES 2021-09-25 15:19:29 Doctor Yayo lynne [facility] [place] [facility] CONSENT/REFUSAL FOR 2021-09-25 15:16:45 Doctor Bryan [facility] DIAGNOSIS AND TREATMENT [place] [facility] Plan of Care Planned Activity Planned Date Details Comments Source Future Scheduled 2023-01-[address] [facility] Test 00:00:00 [facility] Scre[facility] (12+) [code = Tobacco Cessation Counseling and Screening (12+)] Future Scheduled 2023-01-[address] [facility] Test 00:00:00 [facility] r Screening (12+) [code = Tobacco Cessation Counseling and Screening (12+)] Future Scheduled 2022-05-02 Screening for malignant [facility] Test 22:20:26 neoplasm of colon of Medicin e (procedure) [code = 345294255] Future Scheduled 2022-05-02 TETANUS SHOT (ADULT) [facility] Test 22:20:26 [code = TETANUS SHOT of Medi cine (ADULT)] Future Scheduled 2022-05-02 Hepatitis C screening [facility] Test 22:20:26 (procedure) [code = of Medic ine 759760933] Future Scheduled 2022-05-02 ZOSTER VACCINE (1 of 2) [facility] Test 22:20:26 [code = ZOSTER VACCINE of Me dicine (1 of 2)] Future Scheduled 2022-05-02 Abdominal aortic [facility] Test 22:20:26 aneurysm screening of Medici ne (procedure) [code = 342868059] Future Scheduled 2022-05-02 COVID-19 Vaccine (4 - [facility] Test 22:20:26 Booster for Moderna of Medic ine series) [code = COVID-19 Vaccine (4 - Booster for Moderna series)] Future Scheduled 2022-05-02 FLU VACCINE > 6 MONTHS [facility] 22:20:26 [code = FLU VACCINE > 6 of M edicine MONTHS] Future Scheduled 2022-05-02 MEDICARE AWV (Initial) [facility] 22:20:26 [code = MEDICARE AWV of Medi cine (Initial)] Future Scheduled 2022-05-02 BMI FOLLOW UP PLAN [facility] Test 22:20:26 [code = BMI FOLLOW UP of Med icine PLAN] Future Scheduled 2022-05-02 FALL SCREEN [code = [employer] Test 22:20:26 FALL SCREEN] of Medicine Future Scheduled 2022-05-02 ROLLING WALKER WITH Ordered: [employer] Test 12:29:18 SEAT [code = NOCPT] 05/02/2022 of Medic ine Future Scheduled 2022-05-02 MRI BRAIN W WO CONTRAST 1 Occurrences [facility] [employer] Test 12:18:57 [code = 28407-5] starting of Medicine 05/02/2022 until 05/02/2023 Future Scheduled 2022-03-31 COVID-19 Vaccination (4 University of Test 14:38:16 - Booster for Moderna [place] series) [code = Ru torre COVID-19 Vaccination (4 Cent er - Booster for Moderna series)] Future Scheduled 2022-03-31 COVID-19 Vaccination (4 University of Test 14:38:16 - Booster for Moderna [place] series) [code = Ru [place] cer COVID-19 Vaccination (4 Cent er - Booster for Moderna series)] Future Scheduled 2022-03-31 COVID-19 Vaccination (4 University of Test 14:38:16 - Booster for Moderna [place] MD series) [code = Ru Can cer COVID-19 Vaccination (4 Cent er - Booster for Moderna series)] Future Scheduled 2022-03-06 Screening for malignant [facility] [employer] Test 09:00:22 neoplasm of colon of Medicin e (procedure) [code = 922721387] Future Scheduled 2022-03-06 TETANUS SHOT (ADULT) [employer] Test 09:00:22 [code = TETANUS SHOT of Medi cine (ADULT)] Future Scheduled 2022-03-06 Hepatitis C screening [facility] [employer] [employer] [facility] 09:00:22 (procedure) [code = of Medic ine [id number]] Future Scheduled 2022-03-06 ZOSTER VACCINE (1 of 2) [facility] [employer] Test 09:00:22 [code = ZOSTER VACCINE of Tn dicine (1 of 2)] Future Scheduled 2022-03-06 Abdominal aortic [facility] [employer] Test 09:00:22 aneurysm screening of Medici ne (procedure) [code = 008127713] Future Scheduled 2022-03-06 COVID-19 Vaccine (4 - [facility] [employer] Test 09:00:22 Booster for Moderna of Medic ine series) [code = COVID-19 Vaccine (4 - Booster for Moderna series)] Future Scheduled 2022-03-06 FLU VACCINE > 6 MONTHS [facility] [employer] Test 09:00:22 [code = FLU VACCINE > 6 of M edicine MONTHS] Future Scheduled 2022-03-06 MEDICARE AWV (Initial) [facility] [employer] Test 09:00:22 [code = MEDICARE AWV of Medi cine (Initial)] Future Scheduled 2022-03-06 BMI FOLLOW UP PLAN [employer] Test 09:00:22 [code = BMI FOLLOW UP of Med icine PLAN] Future Scheduled 2022-03-06 FALL SCREEN [code = [employer] [facility] 09:00:22 FALL SCREEN] of Medicine Future Scheduled 2022-02-27 Screening for malignant [facility] [employer] Test 16:03:07 neoplasm of colon of Medicin e (procedure) [code = 726862146] Future Scheduled 2022-02-27 TETANUS SHOT (ADULT) [employer] Test 16:03:07 [code = TETANUS SHOT of Medi cine (ADULT)] Future Scheduled 2022-02-27 Hepatitis C screening [facility] [employer] Test 16:03:07 (procedure) [code = of Medic ine [id number]] Future Scheduled 2022-02-27 ZOSTER VACCINE (1 of 2) [facility] Test 16:03:07 [code = ZOSTER VACCINE of Me dicine (1 of 2)] Future Scheduled 2022-02-27 Abdominal aortic [facility] Test 16:03:07 aneurysm screening of Medici ne (procedure) [code = 820924475] Future Scheduled 2022-02-27 COVID-19 Vaccine (4 - Ba [facility] Test 16:03:07 Booster for Moderna of Medic ine series) [code = COVID-19 Vaccine (4 - Booster for Moderna series)] Future Scheduled 2022-02-27 FLU VACCINE > 6 MONTHS [facility] 16:03:07 [code = FLU VACCINE > 6 of M edicine MONTHS] Future Scheduled 2022-02-27 [facility]ICARE AWV (Initial) [facility] 16:03:07 [code = MEDICARE AWV of Medi cine (Initial)] Future Scheduled 2022-02-27 BMI FOLLOW UP PLAN [facility] Test 16:03:07 [code = BMI FOLLOW UP of Med icine PLAN] Future Scheduled 2022-02-27 FALL SCREEN [code = [employer] Test 16:03:07 FALL SCREEN] of Medicine Future Scheduled 2022-02-01 INFLUENZA VACCINE (#1) [facility]00 [code = INFLUENZA Medical Ce nter VACCINE (#1)] Future Scheduled 2022-02-01 INFLUENZA VACCINE (#1) [facility] 00:00:00 [code = INFLUENZA Medical Ce nter VACCINE (#1)] Future Scheduled 2022-02-01 INFLUENZA VACCINE (#1) [facility] 00:00:00 [code = INFLUENZA Medical Ce nter VACCINE (#1)] Future Scheduled 2022-02-01 INFLUENZA VACCINE (#1) [facility] 00:00:00 [code = INFLUENZA Medical Ce nter VACCINE (#1)] Future Scheduled 2022-02-01 INFLUENZA VACCINE (#1) [facility]00 [code = INFLUENZA Medical Ce nter VACCINE (#1)] Future Scheduled 2022-01-30 ROLLING WALKER WITH Ordered: [employer] [facility] 12:28:58 SEAT [code = NOCPT] 01/30/2022 of Medic ine Future Scheduled 2022-01-30 WALKERS [code = NOCPT] [facility] 12:20:07 01/30/2022 of Medicine Future Scheduled 2022-01-30 CBC W/AUTO DIFF WITH Ordered: [facility] Test 12:17:39 PLATELETS [code = 01/30/2022 of Medicin e 04564-1] Future Scheduled 2022-01-30 COMPREHENSIVE METABOLIC Ordered: [facility] Test 12:17:39 PANEL [code = 75846-2] 01/30/2022 of Me dicine Future Scheduled 2022-01-30 Screening for malignant [facility] Test 11:06:02 neoplasm of colon of Medicin e (procedure) [code = 380868919] Future Scheduled 2022-01-30 TETANUS SHOT (ADULT) [facility] Test 11:06:02 [code = TETANUS SHOT of Medi cine (ADULT)] Future Scheduled 2022-01-30 Hepatitis C screening [facility] Test 11:06:02 (procedure) [code = of Medic ine 223369336] Future Scheduled 2022-01-30 ZOSTER VACCINE (1 of 2) [facility] Test 11:06:02 [code = ZOSTER VACCINE of Me dicine (1 of 2)] Future Scheduled 2022-01-30 Abdominal aortic [facility] Test 11:06:02 aneurysm screening of Medici ne (procedure) [code = 059794787] Future Scheduled 2022-01-30 COVID-19 Vaccine (4 - [facility] [employer] [facility] 11:06:02 Booster for Moderna of Medic ine series) [code = COVID-19 Vaccine (4 - Booster for Moderna series)] Future Scheduled 2022-01-30 FLU VACCINE > 6 MONTHS [facility] 11:06:02 [code = FLU VACCINE > 6 of M edicine MONTHS] Future Scheduled 2022-01-30 MEDICARE AWV (Initial) [facility] 11:06:02 [code = MEDICARE AWV of Medi cine (Initial)] Future Scheduled 2022-01-30 BMI FOLLOW UP PLAN [employer] [facility] 11:06:02 [code = BMI FOLLOW UP of Med icine PLAN] Future Scheduled 2022-01-30 FALL SCREEN [code = [employer] [facility] 11:06:02 FALL SCREEN] of Medicine Future Scheduled 2021-12-05 Screening for malignant [facility] [employer] Test 15:13:28 neoplasm of colon of Medicin e (procedure) [code = 860992246] Future Scheduled 2021-12-05 Pneumococcal 65+ (1 - [facility] [employer] [employer] [facility] 15:13:28 PCV) [code = of Medicine Pneumococcal 65+ (1 - PCV)] Future Scheduled 2021-12-05 TETANUS SHOT (ADULT) [employer] Test 15:13:28 [code = TETANUS SHOT of Medi cine (ADULT)] Future Scheduled 2021-12-05 Hepatitis C screening [employer] [facility] 15:13:28 (procedure) [code = of Medic ine 472288174] Future Scheduled 2021-12-05 ZOSTER VACCINE (1 of 2) [facility] [employer] Test 15:13:28 [code = ZOSTER VACCINE of Me dicine (1 of 2)] Future Scheduled 2021-12-05 Abdominal aortic [facility] [employer] Test 15:13:28 aneurysm screening of Medici ne (procedure) [code = 512503072] Future Scheduled 2021-12-05 MEDICARE AWV (Initial) [employer] [facility] 15:13:28 [code = MEDICARE AWV of Medi cine (Initial)] Future Scheduled 2021-12-05 COVID-19 Vaccine (4 - [facility] [employer] [facility] 15:13:28 Booster for Moderna of Medic ine series) [code = COVID-19 Vaccine (4 - Booster for Moderna series)] Future Scheduled 2021-12-05 FLU VACCINE > 6 MONTHS [employer] [facility] 15:13:28 [code = FLU VACCINE > 6 of M edicine MONTHS] Future Scheduled 2021-12-05 BMI FOLLOW UP PLAN [employer] Test 15:13:28 [code = BMI FOLLOW UP of Med icine PLAN] Future Scheduled 2021-12-05 FALL SCREEN [code = [employer] [facility] 15:13:28 FALL SCREEN] of Medicine Future Scheduled 2021-12-05 ELECTROCARDIOGRAM [facility] [employer] Test 15:11:44 COMPLETE [code = 36767] of M edicine Future Scheduled 2021-11-16 Screening for malignant [facility] [employer] Test 00:08:54 neoplasm of colon of Medicin e (procedure) [code = 659944025] Future Scheduled 2021-11-16 Pneumococcal 65+ (1 - [employer] [facility] 00:08:54 PCV) [code = of Medicine Pneumococcal 65+ (1 - PCV)] Future Scheduled 2021-11-16 TETANUS SHOT (ADULT) [facility] 00:08:54 [code = TETANUS SHOT of Medi cine (ADULT)] Future Scheduled 2021-11-16 Hepatitis C screening [employer] [facility] 00:08:54 (procedure) [code = of Medic ine 956133549] Future Scheduled 2021-11-16 ZOSTER VACCINE (1 of 2) [facility] [employer] Test 00:08:54 [code = ZOSTER VACCINE of Me dicine (1 of 2)] Future Scheduled 2021-11-16 Abdominal aortic [facility] [employer] Test 00:08:54 aneurysm screening of Medici ne (procedure) [code = 933982712] Future Scheduled 2021-11-16 COVID-19 Vaccine (4 - [facility] Test 00:08:54 Booster for Moderna of Medic ine series) [code = COVID-19 Vaccine (4 - Booster for Moderna series)] Future Scheduled 2021-11-16 FLU VACCINE > 6 MONTHS [employer] [facility] 00:08:54 [code = FLU VACCINE > 6 of M edicine MONTHS] Future Scheduled 2021-11-16 [facility]ICARE AWV (Initial) [facility] 00:08:54 [code = MEDICARE AWV of Medi cine (Initial)] Future Scheduled 2021-11-16 BMI FOLLOW UP PLAN [facility] Test 00:08:54 [code = BMI FOLLOW UP of Med icine PLAN] Future Scheduled 2021-11-16 FALL SCREEN [code = [employer] [facility] 00:08:54 FALL SCREEN] of Medicine Future Scheduled 2021-11-01 TEMPUS XT TISSUE NGS Ordered: [employer] Test 15:00:35 [code = 28838437] 11/01/2021 of Medicin e Future Scheduled 2021-11-01 Screening for malignant [facility] [employer] Test 13:24:14 neoplasm of colon of Medicin e (procedure) [code = 397931266] Future Scheduled 2021-11-01 Pneumococcal 65+ (1 - [employer] [facility] 13:24:14 PCV) [code = of Medicine Pneumococcal 65+ (1 - PCV)] Future Scheduled 2021-11-01 TETANUS SHOT (ADULT) [facility] 13:24:14 [code = TETANUS SHOT of Medi cine (ADULT)] Future Scheduled 2021-11-01 Hepatitis C screening [employer] [facility] 13:24:14 (procedure) [code = of Medic ine 358226960] Future Scheduled 2021-11-01 ZOSTER VACCINE (1 of 2) [facility] [employer] Test 13:24:14 [code = ZOSTER VACCINE of Me dicine (1 of 2)] Future Scheduled 2021-11-01 Abdominal aortic [facility] Test 13:24:14 aneurysm screening of Medici ne (procedure) [code = 579782593] Future Scheduled 2021-11-01 COVID-19 Vaccine (4 - [facility] [employer] Test 13:24:14 Booster for Moderna of Medic ine series) [code = COVID-19 Vaccine (4 - Booster for Moderna series)] Future Scheduled 2021-11-01 FLU VACCINE > 6 MONTHS [facility] 13:24:14 [code = FLU VACCINE > 6 of M edicine MONTHS] Future Scheduled 2021-11-01 MEDICARE AWV (Initial) [facility] 13:24:14 [code = MEDICARE AWV of Medi cine (Initial)] Future Scheduled 2021-11-01 BMI FOLLOW UP PLAN [facility] Test 13:24:14 [code = BMI FOLLOW UP of Med icine PLAN] Future Scheduled 2021-11-01 FALL SCREEN [code = [employer] [facility] 13:24:14 FALL SCREEN] of Medicine Future Scheduled 2021-11-01 CBC W/AUTO DIFF WITH Once a week for 3 [facility] Test 09:45:52 PLATELETS [code = Occurrences of Medicin e 96194-5] starting 11/01/2021 until 02/01/2022 Future Scheduled 2021-11-01 COMPREHENSIVE METABOLIC Once a week f or 4 [facility] Test 09:45:15 PANEL [code = 42910-9] Occurrences of Me dicine starting 11/01/2021 until 02/01/2022 Future Scheduled 2021-10-[address] [facility] 00:[facility]:00 measurement (procedure) [facility] [code = 34427006] Future Scheduled 2021-10-[address] [facility] 00:00:00 measurement (procedure) [facility] [code = 18294029] Future Scheduled 2021-10-[address] [facility] 00:00:00 measurement (procedure) [facility] [code = 22622492] Future Scheduled 2021-10-[address] [facility] 00:00:00 measurement (procedure) [facility] [code = 50784404] Future Scheduled 2021-10-[address] [facility] 00:00:00 measurement (procedure) [facility] [code = 53596581] Future Scheduled 2021-07-28 COVID-19 VACCINE (4 - [facility] Booster for Moderna [facility] series) [code = COVID-19 VACCINE (4 - Booster for Moderna series)] Future Scheduled 2021-07-28 COVID-19 VACCINE (4 - [facility]00 Booster for Moderna [facility] series) [code = COVID-19 VACCINE (4 - Booster for Moderna series)] Future Scheduled 2021-07-28 COVID-19 VACCINE (4 - [facility] 00:00:00 Booster for Moderna [facility] series) [code = COVID-19 VACCINE (4 - Booster for Moderna series)] Future Scheduled 2021-07-28 COVID-19 VACCINE (4 - [facility] 00:00:00 Booster for Moderna [facility] series) [code = COVID-19 VACCINE (4 - Booster for Moderna series)] Future Scheduled 2021-07-28 COVID-19 VACCINE (4 - [facility] 00:00:00 Booster for Moderna [facility] series) [code = COVID-19 VACCINE (4 - Booster for Moderna series)] Future Scheduled 2021-07-[address] [facility] 00:[facility]00 WELLNESS (YEAR 2 or Medical Center FIRST YEAR if no IPPE) [code = MEDICARE ANNUAL WELLNESS (YEAR 2 or FIRST YEAR if no IPPE)] Future Scheduled 2021-07-[address] [facility] 00:00:00 WELLNESS (YEAR 2 or Medical Center FIRST YEAR if no IPPE) [code = MEDICARE ANNUAL WELLNESS (YEAR 2 or FIRST YEAR if no IPPE)] Future Scheduled 2021-07-[address] [facility] 00:00:00 WELLNESS (YEAR 2 or Medical Center FIRST YEAR if no IPPE) [code = MEDICARE ANNUAL WELLNESS (YEAR 2 or FIRST YEAR if no IPPE)] Future Scheduled 2021-07-[address] [facility] 00:00:00 WELLNESS (YEAR 2 or Medical Center FIRST YEAR if no IPPE) [code = MEDICARE ANNUAL WELLNESS (YEAR 2 or FIRST YEAR if no IPPE)] Future Scheduled 2021-07-[address] [facility] 00:00:00 WELLNESS (YEAR 2 or Medical Center FIRST YEAR if no IPPE) [code = MEDICARE ANNUAL WELLNESS (YEAR 2 or FIRST YEAR if no IPPE)] Future Scheduled 2004 SHINGLES VACCINES ([address] [facility] 00:00:00 2) [code = SHINGLES Medical Center VACCINES (1 of 2)] Future Scheduled 2004 SHINGLES VACCINES ([address] [facility] 00:00:00 2) [code = SHINGLES Medical Center VACCINES (1 of 2)] Future Scheduled 2004 SHINGLES VACCINES ([address] [facility] 00:00:00 2) [code = SHINGLES Medical Center VACCINES (1 of 2)] Future Scheduled 2004 SHINGLES VACCINES ([address] [facility] 00:00:00 2) [code = SHINGLES Medical Center VACCINES (1 of 2)] Future Scheduled 2004 SHINGLES VACCINES ([address] [facility] 00:00:00 2) [code = SHINGLES Medical Center VACCINES (1 of 2)] Future Scheduled 1973 DTAP/TDAP/TD VACCINES [facility] 00:00:00 (1 - Tdap) [code = Medical C enter DTAP/TDAP/TD VACCINES (1 - Tdap)] Future Scheduled 1973 DTAP/TDAP/TD VACCINES [facility] 00:00:00 (1 - Tdap) [code = Medical C enter DTAP/TDAP/TD VACCINES (1 - Tdap)] Future Scheduled 1973 DTAP/TDAP/TD VACCINES [facility] 00:00:00 (1 - Tdap) [code = Medical C enter DTAP/TDAP/TD VACCINES (1 - Tdap)] Future Scheduled 1973 DTAP/TDAP/TD VACCINES [facility] 00:00:00 (1 - Tdap) [code = Medical C enter DTAP/TDAP/TD VACCINES (1 - Tdap)] Future Scheduled 1973 DTAP/TDAP/TD VACCINES [facility] 00:00:00 (1 - Tdap) [code = Medical C enter DTAP/TDAP/TD VACCINES (1 - Tdap)] Future Scheduled 1972 HEPATITIS C [facility]CRE[facility]ING [facility] 00:00[facility]00 [code = HEPATITIS C Medical Center SCREENING] Future Scheduled 1972 HEPATITIS C [facility]CRE[facility]ING [facility] 00:00:00 [code = HEPATITIS C Medical Center SCREENING] Future Scheduled 1972 HEPATITIS C [facility]ING [facility] 00:00:00 [code = HEPATITIS C Medical Center SCREENING] Future Scheduled 1972 HEPATITIS C [facility]ING [facility] 00:00:00 [code = HEPATITIS C Medical Center SCREENING] Future Scheduled 1972 HEPATITIS C [facility] 00:00:00 [code = HEPATITIS C Medical Center SCREENING] Future Scheduled 1964 DIABETIC EYE EXAM [code [facility] 00:00:00 = DIABETIC EYE EXAM] Medical Center Future Scheduled [address] [facility] 00:[facility]:00 examination Medical Center (regime/therapy) [code = 916249738] Future Scheduled 1964 Urine screening for [facility] 00:00:00 protein (procedure) Medical Center [code = 138726127] Future Scheduled 1964 DIABETIC EYE EXAM [code [facility] 00:00:00 = DIABETIC EYE EXAM] Medical Center Future Scheduled [address] [facility] 00:00:00 examination Medical Center (regime/therapy) [code = 121273462] Future Scheduled 1964 Urine screening for [facility] 00:00:00 protein (procedure) Medical Center [code = 237152087] Future Scheduled 1964 DIABETIC EYE EXAM [code [facility] 00:00:00 = DIABETIC EYE EXAM] Medical Center Future Scheduled [address] [facility] 00:00:00 examination Medical Center (regime/therapy) [code = 392288102] Future Scheduled 1964 Urine screening for [facility] 00:00:00 protein (procedure) Medical Center [code = 303257694] Future Scheduled 1964 DIABETIC EYE EXAM [code [facility] 00:00:00 = DIABETIC EYE EXAM] Medical Center Future Scheduled [address] [facility] 00:00:00 examination Medical Center (regime/therapy) [code = 134066975] Future Scheduled 1964 Urine screening for [facility] 00:00:00 protein (procedure) Medical Center [code = 432432643] Future Scheduled 1964 DIABETIC EYE EXAM [code [facility] 00:00:00 = DIABETIC EYE EXAM] Medical Center Future Scheduled [address] [facility] 00:00:00 examination Medical Center (regime/therapy) [code = 252874478] Future Scheduled 1964 Urine screening for [facility] 00:00:00 protein (procedure) Medical Center [code = 315113605] Future Scheduled 1960 PNEUMOCOCCAL 65+ YRS ([address] [facility] Test 00:00:00 - PCV) [code = Medical Cente r PNEUMOCOCCAL 65+ YRS (1 - PCV)] Future Scheduled 1960 PNEUMOCOCCAL 65+ YRS ([address] [facility] 00:00:00 - PCV) [code = Medical Cente r PNEUMOCOCCAL 65+ YRS (1 - PCV)] Future Scheduled 1960 PNEUMOCOCCAL 65+ YRS ([address] [facility] 00:00:00 - PCV) [code = Medical Cente r PNEUMOCOCCAL 65+ YRS (1 - PCV)] Future Scheduled 1960 PNEUMOCOCCAL 65+ YRS ([address] [facility] 00:00:00 - PCV) [code = Medical Cente r PNEUMOCOCCAL 65+ YRS (1 - PCV)] Future Scheduled 1960 PNEUMOCOCCAL 65+ YRS ([address] [facility] 00:00:00 - PCV) [code = Medical Cente r PNEUMOCOCCAL 65+ YRS (1 - PCV)] Future Scheduled 1954 CT Colonography (combo) [facility] 00:00:00 [code = CT Colonography [facility]i [facility] Center (combo)] Future Scheduled 1954 Screening for malignant [facility] 00:00:00 neoplasm of colon Medical Ce nter (procedure) [code = 358417745] Future Scheduled 1954 Screening for malignant [facility] 00:00:00 neoplasm of colon Medical Ce nter (procedure) [code = 214239527] Future Scheduled 1954 Screening for malignant [facility] 00:00:00 neoplasm of colon Medical Ce nter (procedure) [code = 527506581] Future Scheduled 1954 Screening for malignant [facility] 00:00:00 neoplasm of colon Medical Ce nter (procedure) [code = 695171786] Future Scheduled 1954 Sigmoidoscopy [code = [facility] Sigmoidoscopy] Medical Cente r Future Scheduled 1954 CT Colonography (combo) [facility] 00:00:00 [code = CT Colonography [facility] Center (combo)] Future Scheduled 1954 Screening for malignant [facility] 00:00:00 neoplasm of colon Medical Ce nter (procedure) [code = 300447033] Future Scheduled 1954 Screening for malignant [facility] 00:00:00 neoplasm of colon Medical Ce nter (procedure) [code = 805364450] Future Scheduled 1954 Screening for malignant [facility] 00:00:00 neoplasm of colon Medical Ce nter (procedure) [code = 256380890] Future Scheduled 1954 Screening for malignant [facility] 00:00:00 neoplasm of colon Medical Ce nter (procedure) [code = 236736819] Future Scheduled 1954 Sigmoidoscopy [code = [facility] 00:[facility] Sigmoidoscopy] Medical Cente r Future Scheduled 1954 CT Colonography (combo) [facility] 00:00:00 [code = CT Colonography [facility] (combo)] Future Scheduled 1954 Screening for malignant [facility] 00:00:00 neoplasm of colon Medical Ce nter (procedure) [code = 394426611] Future Scheduled 1954 Screening for malignant [facility] 00:00:00 neoplasm of colon Medical Ce nter (procedure) [code = 472083758] Future Scheduled 1954 Screening for malignant [facility] 00:00:00 neoplasm of colon Medical Ce nter (procedure) [code = 964070170] Future Scheduled 1954 Screening for malignant [facility] 00:00:00 neoplasm of colon Medical Ce nter (procedure) [code = 862137867] Future Scheduled 1954 Sigmoidoscopy [code = [facility] 00:00:[facility] Sigmoidoscopy] Medical Cente r Future Scheduled 1954 CT Colonography (combo) [facility] 00:00:00 [code = CT Colonography [facility] (combo)] Future Scheduled 1954 Screening for malignant [facility] 00:00:00 neoplasm of colon Medical Ce nter (procedure) [code = 669815272] Future Scheduled 1954 Screening for malignant [facility] 00:00:00 neoplasm of colon Medical Ce nter (procedure) [code = 127951307] Future Scheduled 1954 Screening for malignant [facility] 00:00:00 neoplasm of colon Medical Ce nter (procedure) [code = 858257303] Future Scheduled 1954 Screening for malignant [facility] 00:00:00 neoplasm of colon Medical Ce nter (procedure) [code = 227634747] Future Scheduled 1954 Sigmoidoscopy [code = [facility] 00:00:00 Sigmoidoscopy] Medical Cente r Future Scheduled 1954 CT Colonography (combo) [facility] 00:00:00 [code = CT Colonography [facility]i [facility] Center (combo)] Future Scheduled 1954 Screening for malignant [facility] 00:00:00 neoplasm of colon Medical Ce nter (procedure) [code = 627959589] Future Scheduled 1954 Screening for malignant [facility] 00:00:00 neoplasm of colon Medical Ce nter (procedure) [code = 823448968] Future Scheduled 1954 Screening for malignant [facility] 00:00:00 neoplasm of colon Medical Ce nter (procedure) [code = 717965163] Future Scheduled 1954 Screening for malignant [facility] 00:00:00 neoplasm of colon Medical Ce nter (procedure) [code = 825543395] Future Scheduled 1954 Sigmoidoscopy [facility]code [facility] 00:[facility] Sigmoidoscopy] Medical Cente r Encounters Start End Encounter Admission Attending Care Care Encounter Source Date/Time Date/Time Type Type Clinicians Facility Department ID 2022-04-25 [facility] [id number] Common 09:42:44 Deion [facility] 2022-04-13 Outpatient Sy, [facility] [id number] Common 09:06:01 Deion [facility] 2022-03-02 Outpatient EL BUI, [facility] Surgery [id number] [facility] 14:18:38 MAN 2021-12-21 Outpatient Sy, [facility] [id number] Common 09:25:01 Deion [facility] 2021-12-08 Outpatient Sy, [facility]LML[facility] [id number] Common 10:21:02 Deion [facility] 2021-11-29 Outpatient Sy, [facility] [id number] Common 10:31:02 Deion [facility] 2021-09-28 Outpatient Sy[facility] [id number] Common 15:16:01 Deion [facility] 2021-08-21 Outpatient Sy, [facility] [id number] Common 14:33:01 Deion [facility] 2021-06-28 Outpatient Sy, [facility] [id number] Common 13:28:32 [facility] 2021-06-28 [facility] [id number] 13:27:55 Deion [id number] [facility] 2021-06-28 Outpatient Sy, STLMLC ST[facility] [id number] Common 13:12:22 Deion [id number] [facility] 2021-06-28 Outpatient Sy, STLMLC [facility] [id number] Common 12:46:44 Deion [id number] [facility] 2021-06-28 Outpatient Sy, [facility] [id number] Common 12:35:25 Deion [id number] [facility] 2021-06-28 Outpatient Sy, [facility] [id number] Common 12:34:29 Deion [id number] [facility] 2021-06-28 Outpatient Sy, [facility] [id number] Common 12:09:27 Deion [id number] [facility] 2021-06-28 [facility] [id number] Common 12:08:45 Deion [id number] [facility] 2021-06-28 Outpatient Sy, [facility] [id number] Common 12:03:46 Deion [id number] [facility] 2021-06-28 Outpatient Sy, [facility] [id number] Common 12:02:46 Deion 11821 [facility] 2021-06-28 Outpatient Sy, [facility] [id number] Common 12:02:32 Deion [id number] [facility] 2022-05-21 2022-05-21 [facility] [id number] 00:00:00 00:00:00 [facility] 2022-05-04 2022-05-04 Outpatient DMG DMG [id number] [facility] 00:00:00 00:00:00 [id number] [facility] 2022-05-02 2022-05-02 Office JENNIFER Smart [id number] [facility] 11:00:00 14:39:18 Visit Kayla YUAN [id number] [facility] [id number] Medi radha 800 e 2022-04-30 2022-04-30 OFFICE STLMLC STLMLC [id number] Co mmon 00:00:00 00:00:00 VISIT Shay [facility] PT - [facility] L[facility] 4 [facility] 2022-04-18 2022-04-18 (TEL) STLMLC STLMLC [id number] Co mmon 00:00:00 00:00:00 [facility] 2022-04-11 2022-04-11 (TEL) STLMLC STLML[facility] [id number] Co mmon 00:00:00 00:00:00 [facility] 2022-04-10 2022-04-10 (TEL) STLMLC STL[facility] [id number] Co mmon 00:00:00 00:00:00 [facility] 2022-04-09 2022-04-09 (HOSP F/U) STLMLC STL[facility] [id number] Common 00:00:00 00:00:00 [facility] Follow Up - [facility] 2022-04-09 2022-04-09 (TEL) STLMLC STLMLC [id number] Co mmon 00:00:00 00:00:00 [facility] 2022-04-06 2022-04-06 Documentat Garcia, [facility] [id number] 00:[facility] 00:00:00 [facility] 2022-04-06 2022-04-06 Documentat Garcia, [facility] [id number] 00:00[facility]00 00:00:00 [facility] 2022-04-02 2022-04-04 [facility] Man Bui [facility] [id number] 05:51:00 17:45:[address] [facility] 2022-04-02 2022-04-04 [facility] Man Bui [facility] [id number] 05:51:00 17:45:00 Encounter Haily Reyes [facility] 2022-04-02 2022-04-04 Inpatient EL ADOLFO REYES Cardiac [id number] [facility] 05:51:00 17:45:00 HAILY Cath 2022-04-04 2022-04-04 (TEL) STLMLC [facility] [id number] Co mmon 00:00:00 00:00:00 [facility] 2022-04-02 2022-04-[address] [facility] [id number] [facility] 00:00:00 23:59:00 [facility] 2022-04-02 2022-04-02 Surgery [facility] [id number] 07:25:00 10:03:[address] [facility] 2022-04-02 2022-04-02 Surgery Bui [facility] [id number] 07:25:00 10:03:[address] [facility] 2022-04-02 2022-04-02 Orders [facility] [id number] [facility] 00:00:00 00:00:[address] [facility] 2022-04-02 2022-04-02 Orders [facility] [id number] 00:00:00 00:00:00 [facility] 2022-03-15 2022-03-15 Surgery Bui [facility] [id number] 14:36:00 16:49:[address] [facility] 2022-03-15 2022-03-15 Hospital [facility] [id number] 14:36:00 14:36:[address] [facility] [facility] 2022-03-06 2022-03-06 Office JENNIFER Smart 1.2.840.114 [id number] [facility] 08:30:00 11:06:53 Visit Kayla AMBULATOR 350.1.13.21 College Ash Y 0.2.7.2.686 [id number] Medi radha 800 e 2022-02-27 2022-02-28 Office JENNIFER BUI 1.2.840.114 [id number] [facility] 15:42:50 09:28:30 Visit MAN AMBULATOR 350.1.13.21 College Y 0.2.7.2.686 of [id number] [facility] 370 e 2022-02-26 2022-02-26 [facility] [id number] 13:24:00 23:59:00 Encounter [facility] 2022-02-26 2022-02-26 [facility] [id number] 13:24:00 23:59:00 Encounter [facility] 2022-02-26 2022-02-26 Outpatient ADOLFO MICHAEL [id number] SLE 13:24:00 23:59:00 KAYLA 2022-02-16 2022-02-16 Outpatient ADOLFO MICHAEL SLESd [id number] [facility]H 00:00:00 00:00:00 KAYLA 2022-01-30 2022-01-30 Office JENNIFER SMART 1.2.840.114 [id number] [facility] 10:47:46 16:58:47 Visit KAYLA AMBULATOR 350.1.13.21 College Y 0.2.7.2.686 of [id number] [facility] 800 e 2022-01-30 2022-01-30 Orders Berry [facility] [id number] 00:00:00 00:00:00 Only [facility] 2022-01-30 2022-01-30 Orders Berry [facility] [id number] 00:00:00 00:00:00 Only [facility] 2022-01-29 2022-01-29 Telephone Ron [facility] [id number] 00:00:00 00:00:00 [facility] 2022-01-29 2022-01-29 Telephone Ron [facility] [id number] 00:00:00 00:00:00 [facility] 2022-01-19 2022-01-19 Outpatient ADOLFO VICKERS SLE [id number] SLEH 00:00:00 00:00:00 MATTHEW 2022-01-19 2022-01-19 Telephone Airam, [facility] [id number] [facility] [address] 00:[facility]00 [facility] 2022-01-19 2022-01-19 Telephone Airam, [facility] [id number] 00:00[facility]00 00[facility]00[facility]00 [facility] 2022-01-18 2022-01-18 [id number] 00:00:00 00:00:00 VISIT Shay ASHLEY PT - CHI LEVEL 4 [facility] 2022-01-17 2022-01-[address] [facility] [id number] SLE 00:00:00 00:00:00 [facility] 2022-01-16 2022-01-16 Outpatient RAMYA, BCJennifer BC [id number] [facility] 15:28:32 16:21:32 MAN medley of Medicin e 2022-01-10 2022-01-10 [facility] [id number] [facility] 11:30:00 12:00:00 Visit Emely [facility] 2022-01-10 2022-01-10 [facility] [id number] [facility] 11:30:00 12:00:00 Visit Emely [facility] 2022-01-10 2022-01-10 Outpatient ADOLFO COWAN SLE [id number] SLEH 11:52:35 11:52:35 [facility] 2022-01-08 2022-01-08 Telephone Stan [facility] [id number] 00:00:00 00:00:00 [facility] 2022-01-08 2022-01-08 Jamir Pierce [facility] [id number] 00:00:00 00:00:00 [facility] 2022-01-04 2022-01-04 (TEL) [facility] [id number] Co mmon 00:00:00 00:00:00 [facility] - [facility] 2022-01-01 2022-01-01 Outpatient [facility] [id number] SLE 00:00:00 00:00:00 2021-12-21 2021-12-[address] [facility] Surgery [id number] SLE 06:05:00 11:11:00 [facility] 2021-12-21 2021-12-29 [facility] [id number] 06:05:00 11:11:[address] [facility] 2021-12-21 2021-12-29 [facility] [id number] 06:05:00 11:11:[address] [facility] 2021-12-25 2021-12-25 Surgery Airam, [facility] [id number] 14:18:00 19:47:00 [facility] 2021-12-25 2021-12-25 [facility] [id number] 14:18:00 19:47:00 [facility] 2021-12-25 2021-12-25 Anesthesia Ludin Williamson [facility] [id number] 14:23:00 19:00:00 Event Gladis Kyle [facility] 2021-12-25 2021-12-25 Anesthesia Ludin Williamson [facility] [id number] 14:23:00 19:00:00 [facility] 2021-12-21 2021-12-[address] [facility] [id number] [facility] 06:05:00 23:59:00 Colleg e [facility] Medicin [facility] 2021-12-21 2021-12-21 Surgery Ramya, [facility] [id number] 11:55:00 14:17:[address] [facility] 2021-12-21 2021-12-21 Surgery Ramya, [facility] [id number] 11:55:00 14:17:[address] [facility] 2021-12-21 2021-12-[address] [facility] [id number] [facility] 00:00:00 06:04:00 Colleg e [facility] Medicin e 2021-12-21 2021-12-21 Orders [facility] [id number] 00:00:00 00:00:00 [facility] 2021-12-21 2021-12-21 Travel [facility] [id number] [facility] 00:00:00 00:00:00 [facility] 2021-12-21 2021-12-21 Orders [facility] [id number] 00:00:00 00:00:00 [facility] 2021-12-21 2021-12-21 Travel [facility] [id number] [facility] 00:00:00 00:00:00 [facility] 2021-12-20 2021-12-[address] [facility] SLE [id number] SLE 11:31:25 23:59:00 KAYLA 2021-12-20 2021-12-20 [facility] [id number] 11:31:25 23:59:00 Encounter [facility] 2021-12-20 2021-12-20 [facility] [id number] 11:31:25 23:59:00 Encounter [facility] 2021-12-20 2021-12-20 [facility] [id number] Co mmon 00:00:00 00:00:00 [facility] 2021-12-05 2021-12-05 Office JENNIFER Bui 1.2.840.114 [id number] [facility] 13:00:00 13:40:00 Visit Man AMBULATOR 350.1.13.21 College Y 0.2.7.2.686 of [id number] [facility] radha 370 e 2021-12-01 2021-12-01 Outpatient EL SLE SLE [id number] [facility] 06:36:04 06:36:04 2021-12-01 2021-12-01 (TEL) STLMLC STLMLC [id number] Co mmon 00:00:00 00:00:00 [facility] 2021-11-29 2021-11-29 (TEL) STLMLC STLMLC [id number] Co mmon 00:00:00 00:00:00 [facility] 2021-11-29 2021-11-29 (TEL) STLMLC STLMLC [id number] Co mmon 00:00:00 00:00:00 [facility] 2021-11-28 2021-11-28 (TEL) STLMLC STLMLC [id number] Co mmon 00:00:00 00:00:00 [facility] 2021-11-24 2021-11-24 Ancillary 1.2.840.1 [id number] [facility] 20:15:00 20:20:00 Procedure 69083.1.1 it y of 3.412.2.7 [place] .3Jillian746080 MD [facility] 2021-11-24 2021-11-24 Ancillary EL 1.2.840.1 [id number] [id number] [facility] 20:15:00 20:20:00 Procedure 47603.1.1 it y of 3.412.2.7 Kash .3Jillian365497 MD [facility] 2021-11-24 2021-11-24 Ancillary 1.2.840.1 [id number] 1094 [id number] [facility] 20:10:00 20:15:00 Procedure 55109.1.1 it y of 3.412.2.7 Kash .3Jillian091027 MD [facility] 2021-11-24 2021-11-24 Ancillary EL 1.2.840.1 [id number] 1094 [id number] Univers 20:10:00 20:15:00 Procedure 07708.1.1 it y of 3.412.2.7 [place] .3.643310 MD Walsh8 [facility] 2021-11-24 2021-11-24 Ancillary 1.2.840.1 [id number] 1094 [id number] Univers 20:05:00 20:10:00 Procedure 34006.1.1 it y of 3.412.2.7 [place] .3.572699 MD Walsh8 [facility] 2021-11-24 2021-11-24 Ancillary EL 1.2.840.1 [id number] 1094 [id number] Univers 20:05:00 20:10:00 Procedure 13268.1.1 it y of 3.412.2.7 [place] .3.848710 MD Walsh8 [facility] 2021-11-24 2021-11-24 Ancillary 1.2.840.1 [id number] 1094 [id number] [facility] 20:00:00 20:05:00 Procedure 23820.1.1 it y of 3.412.2.7 [place] .3.672178 MD Walsh8 [facility] 2021-11-24 2021-11-24 Ancillary EL 1.2.840.1 [id number] 1094 [id number] Univers 20:00:00 20:05:00 Procedure 92220.1.1 it y of 3.412.2.7 [place] .3.209666 MD Walsh8 [facility] 2021-11-24 2021-11-24 Ancillary 1.2.840.1 [id number] 1094 [id number] Univers 02:55:00 03:00:00 Procedure 85872.1.1 it y of 3.412.2.7 [place] .3.750988 MD Walsh8 [facility] 2021-11-24 2021-11-24 Ancillary EL 1.2.840.1 [id number] 1094 [id number] Univers 02:55:00 03:00:00 Procedure 67646.1.1 it y of 3.412.2.7 [place] .3.017666 MD Walhs8 [facility] 2021-11-24 2021-11-24 Ancillary 1.2.840.1 [id number] 1094 [id number] Univers 02:50:00 02:55:00 Procedure 73362.1.1 it y of 3.412.2.7 [place] .3.812020 MD Walsh8 [facility] 2021-11-24 2021-11-24 Ancillary EL 1.2.840.1 [id number] 1094 [id number] Univers 02:50:00 02:55:00 Procedure 72679.1.1 it y of 3.412.2.7 [place] .3.664249 MD Walsh8 [facility] 2021-11-24 2021-11-24 Ancillary EL 1.2.840.1 [id number] 1094 [id number] Univers 02:45:00 02:50:00 Procedure 69250.1.1 it y of 3.412.2.7 [place] .3.426705 MD [facility] 2021-11-24 2021-11-24 Ancillary 1.2.840.1 [id number] 1094 [id number] Univers 02:45:00 02:50:00 Procedure 47621.1.1 it y of 3.412.2.7 [place] .3.306041 MD Walsh8 [facility] 2021-11-24 2021-11-24 Ancillary EL 1.2.840.1 [id number] 1094 [id number] Univers 02:40:00 02:45:00 Procedure 63646.1.1 it y of 3.412.2.7 [place] .3.357268 MD Walsh8 [facility] 2021-11-24 2021-11-24 Ancillary 1.2.840.1 [id number] 1094 [id number] Univers 02:40:00 02:45:00 Procedure 40098.1.1 it y of 3.412.2.7 [place] .3.131343 MD Walsh8 [facility] 2021-11-16 2021-11-16 Ancillary EL 1.2.840.1 [id number] 1093 [id number] Univers 20:00:00 20:05:00 Procedure 65941.1.1 it y of 3.412.2.7 [place] .3.375803 MD Walsh8 [facility] 2021-11-16 2021-11-16 Ancillary 1.2.840.1 [id number] 1093 [id number] Univers 20:00:00 20:05:00 Procedure 12754.1.1 it y of 3.412.2.7 [place] .3.842638 .8 [facility] 2021-11-15 2021-11-15 Office JENNIFER SMART 1.2.840.[id number] [place] [address] 10:36:34 11:43:21 Visit KAYLA AMBULATOR 350.1.13.21 College Y 0.2.7.2.686 of [id number] [facility] 800 e 2021-11-13 2021-11-13 Orders Berry [facility] [id number] 00:00:00 00:00:00 Only [facility] 2021-11-13 2021-11-13 Orders Berry [facility] [id number] 00:00:00 00:00:00 Only [facility] 2021-11-02 2021-11-02 Outpatient [facility] [id number] [facility] 12:45:38 23:59:00 [facility] 2021-11-02 2021-11-02 [facility] [id number] 12:45:38 23:59:[address] [facility] 2021-11-02 2021-11-02 [facility] Samaniego, [facility] [id number] 12:45:38 23:59:[address] [facility] 2021-11-02 2021-11-02 Procedure Aden [facility] [id number] 11:00:00 12:00:00 visit [facility] 2021-11-02 2021-11-[address] [facility] [id number] [facility] 11:00:00 12:00:00 visit [facility] 2021-11-02 2021-11-02 Outpatient [facility] [id number] [facility] 08:21:12 08:21:12 2021-11-01 2021-11-01 Office JENNIFER SMART 1.2.840.114 [id number] [facility] 09:05:58 10:31:34 Visit KAYLA AMBULATOR 350.1.13.21 College Y 0.2.7.2.686 of [id number] Medi radha 800 e 2021-10-31 2021-10-[address] [facility] [id number] [facility] 12:02:30 13:36:43 Colleg e [facility] Medicin e 2021-10-26 2021-10-26 (HOSP F/U) [facility] [id number] Common 00:00:00 00:00:00 [facility] Follow Up - [facility] 2021-10-25 2021-10-25 Outpatient [facility] [id number] SLE 09:18:42 09:18:42 2021-10-25 2021-10-25 Orders Aden [facility] [id number] [facility] 00:00:00 00:00:00 Only [facility] 2021-10-25 2021-10-25 Orders Aden [facility] [id number] [facility] [address] 00:00:00 00:00:00 Only [facility] 2021-10-24 2021-10-24 (TEL) [facility] [id number] Co mmon 00:00:00 00:00:00 Spirit - [facility] 2021-10-16 2021-10-23 [address]O CASTAÑEDA [facility] Surgery [id number] SLE 06:46:00 15:53:00 2021-10-16 2021-10-23 Hospital Luisito Castañeda [facility] [id number] 06:46:00 15:53:00 Encounter Taryn [facility] 2021-10-16 2021-10-23 Hospital Luisito Cameron [facility] [id number] 06:46:00 15:53:00 Encounter Taryn [facility] 2021-10-20 2021-10-20 (TEL) [facility] [id number] Co mmon 00:00:00 00:00:00 [facility] 2021-10-16 2021-10-16 [facility] [id number] 12:33:00 21:48:00 [facility] 2021-10-16 2021-10-16 [facility] [id number] 12:33:00 21:48:00 Event Gloria [facility] 2021-10-16 2021-10-16 Surgery Luisito Cameron [facility] [id number] 10:05:00 15:40:00 [facility] 2021-10-16 2021-10-16 Surgery Luisito Cameron [facility] [id number] 10:05:00 15:40:00 [facility] 2021-10-16 2021-10-16 Travel [facility] [id number] [facility] 00:00:00 00:00:00 [facility] 2021-10-16 2021-10-16 Travel [facility] [id number] [facility] 00:00:00 00:00:00 [facility] 2021-10-12 2021-10-12 Outpatient SLE SLE [id number] [facility]H 12:08:31 23:59:00 2021-10-12 2021-10-12 [facility] [id number] 11:35:00 23:59:00 Encounter [facility] 2021-10-12 2021-10-12 [facility] [id number] 11:35:00 23:59:00 Encounter [facility] 2021-10-12 2021-10-12 Travel [facility] [id number] [facility] 00:00:00 00:00:00 [facility] 2021-10-12 2021-10-12 Travel [facility] [id number] [facility] 00:00:00 00:00:00 [facility] 2021-10-11 2021-10-11 Outpatient LUISITO CASTAÑEDA [facility] [id number] [facility] 11:57:03 23:59:00 2021-10-11 2021-10-11 [facility] Luisito Cameron [facility] [id number] 11:30:00 23:59:00 Encounter [facility] 2021-10-11 2021-10-11 [facility] [id number] 11:30:00 23:59:00 Encounter [facility] 2021-10-11 2021-10-11 Outpatient LIBAN SLE SLE [id number] [facility] 00:00:00 00:00:00 2021-10-10 2021-10-[address] [facility] [id number] [facility] 11:19:13 12:25:50 Nikita mcknight of Medicin e 2021-10-10 2021-10-10 Outpatient JENNIFER [facility] [id number] [facility] 08:34:34 12:13:53 DINA frausto of Medicin e 2021-10-10 2021-10-10 Orders Luisito Cameron [facility] [id number] 00:00:00 00:00:[address] [facility] 2021-10-10 2021-10-10 Orders Luisito Cameron [facility] [id number] 00:00:00 00:00:[address] [facility] 2021-10-10 2021-10-10 Orders Luisito Cameron [facility] [id number] 00:00:00 00:00:[address] [facility] 2021-10-10 2021-10-10 Orders Luisito Cameron [facility] [id number] 00:00:00 00:00:00 [facility] 2021-09-29 2021-10-05 Inpatient ER GREGORY, [facility] Neurology [id number] SLE 20:54:00 17:50:00 BOVINA 2021-09-29 2021-10-05 [facility] Makayla Rausch [facility] [id number] 20:54:00 17:50:00 Encounter [facility] 2021-09-29 2021-10-05 [facility] Makayla Rausch [facility] [id number] 20:54:00 17:50:00 Encounter [facility] 2021-10-05 2021-10-05 [facility] [id number] Co mmon 00:00:00 00:00:00 [facility] 2021-10-03 2021-10-03 Orders [facility] [id number] 00:00:00 00:00:00 [facility] 2021-10-03 2021-10-03 Orders [facility] [id number] 00:00:00 00:00:00 [facility] 2021-09-30 2021-09-30 Travel [facility] [id number] [facility] 00:00:00 00:00:00 [facility] 2021-09-30 2021-09-30 Travel [facility] [id number] [facility] 00:00:00 00:00:00 [facility] 2021-09-29 2021-09-[address] [facility] [id number] [facility] 00:00:00 23:59:00 Margot 2021-09-29 2021-09-29 Orders [facility] [id number] 00:00:00 00:00:[address] [facility] 2021-09-29 2021-09-29 Orders [facility] [id number] 00:00:00 00:00:00 [facility] 2021-09-27 2021-09-27 OFFICE STLMLC STLMLC [id number] Co mmon 00:00:00 00:00:00 VISIT EST Spir it PT LEVEL 3 - [facility] 2021-09-26 2021-09-26 (TEL) STLMLC STLMLC [id number] Co mmon 00:00:00 00:00:00 [facility] 2021-09-25 2021-09-25 Emergency Willis, [facility] 1.2.840.114 [id number] Univers 10:54:00 13:49:00 Ar GRAY 350.1.13.10 i ty [facility] 4.2.7.2.686 [facility] [id number] [place] [address] [place] 2021-09-25 2021-09-25 Emergency X WILLIS, [facility] ERT [id number] Univers 10:54:00 13:49:00 AR nash [facility] 2021-08-21 2021-08-21 (TEL) STLMLC STLMLC [id number] Co mmon 00:00:00 00:00:00 [facility] 2021-08-21 2021-08-21 OFFICE STLMLC STLMLC [id number] Co mmon 00:00:00 00:00:00 VISIT Spirit ESTAB PT - CHI LEVEL 4 [facility] 2021-08-21 2021-08-21 INIT STLMLC STLMLC [id number] Co mmon 00:00:00 00:00:00 ANNUAL MCR Spi rit WELLNESS - CHI VISIT [facility] 2021-07-31 2021-07-31 (TEL) STLMLC STLMLC [id number] Co mmon 00:00:00 00:00:00 [facility] 2021-06-01 2021-06-01 (TEL) STLMLC STLMLC [id number] Co mmon 00:00:00 00:00:00 [facility] 2020-12-16 2020-12-16 Outpatient STLMLC STLMLC [id number] Common 00:00:00 00:00:00 [facility] 2020-12-07 2020-12-07 Outpatient STLMLC STLMLC [id number] Common 00:00:00 00:00:00 [facility] 2020-12-02 2020-12-02 Outpatient STLMLC STLMLC [id number] Common 00:00:00 00:00:00 [facility] 2020-10-14 2020-10-14 Outpatient STLMLC STLMLC [id number] Common 00:00:00 00:00:00 [facility] 2020-10-03 2020-10-03 Outpatient STLMLC STLMLC [id number] Common 00:00:00 00:00:00 [facility] 2020-09-01 2020-09-01 Outpatient STLMLC STLMLC [id number] Common 00:00:00 00:00:00 [facility] 2020-08-18 2020-08-18 Outpatient STLMLC STLMLC [id number] Common 00:00:00 00:00:00 [facility] 2020-08-02 2020-08-02 Outpatient STLMLC STLMLC [id number] Common 00:00:00 00:00:00 [facility] 2020-08-02 2020-08-02 Outpatient STLMLC STLMLC [id number] Common 00:00:00 00:00:00 [facility] 2020-06-30 2020-06-30 Outpatient STLMLC STLMLC [id number] Common 00:00:00 00:00:00 [facility] 2020-05-16 2020-05-16 Outpatient STLMLC STLMLC [id number] Common 00:00:00 00:00:00 [facility] 2020-05-03 2020-05-03 Outpatient STLMLC STLMLC [id number] Common 00:00:00 00:00:00 [facility] 2020-04-07 2020-04-[address] [facility] [id number] Common 00:00:00 00:00:00 [facility] 2020-04-07 2020-04-07 [facility] [id number] Common 00:00:00 00:00:00 [facility] Results Test Description Test Time Test Comments Results Result Comments Source COMPREHENSIVE METABOLIC PANEL 2022-05-02 19:25:41 Test Item Value Reference Range Interpretation Comme nts GLUCOSE (test code = 2345-7) See_Comment H [Automated message] The system which generated this result transmitted ref erence range: 70 - 99 MG/DL. The reference range was not used to interpret this result as sakshi l/abnormal. BLOOD UREA NITROGEN (test code See_Comment [Automated message] The system = 3091-6) which generated this result transmitted ref erence range: 8 - 23 MG/DL. The r eference range was not used to interpret this result as sakshi l/abnormal. CREATININE (test code = See_Comment [Au tomated message] The system 2160-0) which generated this result transmitted ref erence range: 0.8 - 1.4 MG/DL. Th e reference range was not used to interpret this result as sakshi l/abnormal. EGFR (test code = 65199-1) See_Comment [Automated message] The system which generated this result transmitted ref erence range: >60 ML/MIN/1.73. Th e reference range was not used to interpret this result as sakshi l/abnormal. BUN/CREAT RATIO (test code = See_Comment [Automated message] The system 3097-3) which generated this result transmitted ref erence range: 6 - 28 RATIO. The r eference range was not used to interpret this result as sakshi l/abnormal. SODIUM (test code = 2951-2) See_Comment [Automated message] The system which generated this result transmitted ref erence range: 133 - 146 MEQ/L. Th e reference range was not used to interpret this result as sakshi l/abnormal. POTASSIUM (test code = 2823-3) See_Comment [Automated message] The system which generated this result transmitted ref erence range: 3.5 - 5.4 MEQ/L. Th e reference range was not used to interpret this result as sakshi l/abnormal. CHLORIDE (test code = 2075-0) See_Comment [Automated message] The system which generated this result transmitted ref erence range: 100 - 112 MEQ/L. Th e reference range was not used to interpret this result as sakshi l/abnormal. CO2 (test code = 1963-8) See_Comment [A utomated message] The system which generated this result transmitted ref erence range: 21 - 30 MEQ/L. The reference range was not used to interpret this result as sakshi l/abnormal. CALCIUM (test code = 74075-3) See_Comment [Automated message] The system which generated this result transmitted ref erence range: 8.5 - 10.5 MG/DL. T he reference range was not u sed to interpret this result as normal/abnormal. PROTEIN TOTAL (test code = See_Comment [Automated message] The system 2885-2) which generated this result transmitted ref erence range: 6.1 - 8.1 G/DL. The reference range was not used to interpret this result as sakshi l/abnormal. ALBUMIN (test code = 38925-0) See_Comment [Automated message] The system which generated this result transmitted ref erence range: 3.4 - 4.8 G/DL. The reference range was not used to interpret this result as sakshi l/abnormal. GLOBULINS, SERUM, TOTAL (test See_Comment [Automated message] The system code = 27243-2) which genera rylee this result transmitted ref erence range: 1.9 - 3.7 G/DL. The reference range was not used to interpret this result as sakshi l/abnormal. A/G RATIO (test code = 1759-0) See_Comment [Automated message] The system which generated this result transmitted ref erence range: 1.0 - 2.6 RATIO. Th e reference range was not used to interpret this result as sakshi l/abnormal. BILIRUBIN TOTAL (test code = See_Comment [Automated message] The system 1974-07) which generated this result transmitted ref erence range: <=1.2 MG/DL. Th e reference range was not used to interpret this result as sakshi l/abnormal. ALKALINE PHOSPHATASE (test 95 U/L 30-132 code = 6768-6) AST (SGOT) (test code = 18 U/L 7-56 0-8) ALT (SGPT) (test code = 18 U/L 3-47 ABNER TING PERFORMED AT [facility] 1744-2) PATHOLOGY [employer] [address] [place], [place] [address] CLIA NO. [id number] Unle ss Otherwise Indicated, All Testing Performed At: [facility], [address] [place] [address] Hospital Supervisor: Casey Ann M.D. CLIA Number [id number] Cap Accreditation N o. [id number] Lab Interpretation (test code Abnormal = 33918-3) [facility] W/AUTO DIFF WITH [id number] 19:04:21 Test Item Value Reference Range Interpretation Comments WHITE BLOOD CELL COUNT See_Comment [Aut omated message] (test code = 10309-7) The sy stem which generated this result transmitted ref erence range: 3.5 - 11 .0 K/UL. The refer ence range was not u sed to interpret this result as normal/abnor mal. RED BLOOD CELL COUNT See_Comment [Autom ated message] (test code = 21952-4) The sy stem which generated this result transmitted ref erence range: 4.50 - 6 .10 M/UL. The refer ence range was not u sed to interpret this result as normal/abnor mal. HEMOGLOBIN (test code = See_Comment L [Au tomated message] 718-7) The system whic h generated this result transmitted ref erence range: 13.5 - 1 7.0 G/DL. The refer ence range was not u sed to interpret this result as normal/abnor mal. HEMATOCRIT (test code = 39.2 % 40.0-51.0 L ) MEAN CORPUSCULAR VOLUME 82.5 fL 80.0-99.0 (test code = 39848-8) MEAN CORPUSCULAR 27.8 PG 25.0-33.0 HEMOGLOBIN (test code = 08655-7) MEAN CORPUSCULAR See_Comment [Automated message] HEMOGLOBIN CONC (test The sy stem which code = 55447-1) generated th is result transmitted ref erence range: 31.0 - 3 6.0 G/DL. The refer ence range was not u sed to interpret this result as normal/abnor mal. RED CELL DISTRIBUTION 13.9 % 11.5-15.0 WIDTH (test code = 23587-4) NEUTROPHILS % (test code 55 % = 83625-7) LYMPHOCYTES % (test code 27 % = 81836-4) MONOCYTES % (test code = 11 % 34083-5) EOSINOPHILS % (test code 7 % = 59680-9) BASOPHILS % (test code = 0 % 43426-4) PLATELET COUNT (test See_Comment TESTIN G PERFORMED AT code = 22902-7) CLINICAL PAT [facility] [place] [address] [place] [address] CLIA NO. [id number] [Aut omated message] The sy stem which generated this result transmit rylee reference range : 130 - 400 K/UL. The reference range was not used to int erpret this result as normal/abnormal . NEUTROPHILS ABSOLUTE See_Comment [Autom ated message] COUNT (test code = The syste m which 84480-8) generated this result transmitted ref erence range: 1.50 - 7 .50 K/UL. The refer ence range was not u sed to interpret this result as normal/abnor mal. LYMPHOCYTES ABSOLUTE See_Comment [Autom ated message] COUNT (test code = The syste m which 55875-3) generated this result transmitted ref erence range: 1.00 - 4 .00 K/UL. The refer ence range was not u sed to interpret this result as normal/abnor mal. MONOCYTES ABSOLUTE COUNT See_Comment [A utomated message] (test code = 67192-4) The sy stem which generated this result transmitted ref erence range: 0.20 - 1 .00 K/UL. The refer ence range was not u sed to interpret this result as normal/abnor mal. BASOPHILS ABSOLUTE COUNT See_Comment Un less Otherwise (test code = 73747-3) Indica rylee, All Testing Perform ed At: [facility], [address] [place] [address] Laborator y Director: Casey Ann M.D. CLIA Number [id number] Cap Accreditation N o. [id number] [Autom ated message] The sy stem which generated this result transmit rylee reference range : 0.00 - 0.20 K/UL. Th e reference range was not used to int erpret this result as normal/abnormal . Lab Interpretation (test Abnormal code = 36475-8) [facility]-Glucose [id number] 11:40:59 Test Item Value Reference Range Interpretation Comments POC-Glucose Meter (test 153 mg/dL 70-110 H : TE STED AT [facility] code = 1538) [address] [place] [address], [address]: 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 ID = [id number] for Teresa Hakan gus Lab Interpretation (test Abnormal code = 61016-1) [facility]-Glucose [id number] 11:40:59 Test Item Value Reference Range Interpretation Comments POC-Glucose Meter (test 153 mg/dL 70-110 H : TE STED AT [facility] code = 1538) [address] [place] [address], [address]: 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 ID = [id number] for Teresa Hakan juan luisdy Lab Interpretation (test Abnormal code = 59477-8) [facility]-Glucose [id number] 11:40:59 Test Item Value Reference Range Interpretation Comments POC-Glucose Meter (test 153 mg/dL 70-110 H : TE STED AT [facility] code = 1538) [address] [place] [address], [address]: 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 ID = [id number] for Teresa Hakan juan luisdy Lab Interpretation (test Abnormal code = 44812-9) [facility]-Glucose [id number] 11:40:59 Test Item Value Reference Range Interpretation Comments POC-Glucose Meter (test 153 mg/dL 70-110 H : TE STED AT [facility] code = 1538) [address] [place] [address], [address]: 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 ID = [id number] for Teresa Hakan juan luisdy Lab Interpretation (test Abnormal code = 40046-1) [facility]-GLUCOSE [id number] 11:40:59 Test Item Value Reference Range Interpretation Comments POC-GLUCOSE METER 153 mg/dL 70-110 H : TESTED A T [facility] 6720 (BEAKER) (test code = BIJU [place], [address]) [address]: 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 ID = [id number] for Hakan Moore POCT-GLUCOSE [id number] 07:31:08 Test Item Value Reference Range Interpretation Comments POC-GLUCOSE METER 94 mg/dL 70-110 : TESTED A T [facility] 6720 (BEAKER) (test code = [place], [address]) [address]: 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 ID = [id number] for JARRET CHOPRA BASIC METABOLIC [id number] 06:28:26 Test Item Value Reference Range Interpretation Comments SODIUM (BEAKER) 141 meq/L 136-145 (test code = 381) POTASSIUM 3.2 meq/L 3.5-5.1 L (BEAKER) (test code = 379) CHLORIDE (BEAKER) 106 meq/L 98-107 (test code = 382) CO2 (BEAKER) 26 meq/L 22-29 (test code = 355) BLOOD UREA 16 mg/dL 7-21 NITROGEN (BEAKER) (test code = 354) CREATININE 0.79 mg/dL 0.57-1.25 (BEAKER) (test code = 358) GLUCOSE RANDOM 73 mg/dL 70-105 (BEAKER) (test code = 652) CALCIUM (BEAKER) 9.0 mg/dL 8.4-10.2 (test code = 697) EGFR (BEAKER) 98 Interpretatio n of eGFR (test code = mL/min/1.73 values Stage De scription 1092) sq m Result G1 Sakshi l or high >=90 G2 Mildly decreased 60-89 G3a Mildl y to moderately 45-5 9 G3b Moderately to s everely 30-44 G4 Severl y decreased 15-29 G5 Kidney failure <15Reported eGF R is based on the CKD-EPI 2020 equation that d oes not use a race coefficientEsti mated GFR is not as accur ate as Creatinine Rema khoa in predicting glom erular filtration rate . Estimated GFR is not appl icable for dialysis patien ts Injection Molding Machine Offbearer ID - [id number] 06:19:51 Test Item Value Reference Range Interpretation Comments MAGNESIUM (BEAKER) (test code = 2.0 mg/dL 1.6-2.6 627) Injection Molding Machine Offbearer ID - ADMINCBC (HEMOGRAM ONLY)2022-04-04 05:09:16 Test Item Value Reference Range Interpretation Comments WHITE BLOOD CELL COUNT (BEAKER) 5.7 K/ L 3.5-10.5 (test code = 775) RED BLOOD CELL COUNT (BEAKER) 4.30 M/ L 4.63-6.08 L (test code = 761) HEMOGLOBIN (BEAKER) (test code = 11.9 GM/DL 13.7-17.5 L 410) HEMATOCRIT (BEAKER) (test code = 35.4 % 40.1-51.0 L 411) MEAN CORPUSCULAR VOLUME (BEAKER) 82 fL 79-92 (test code = 753) MEAN CORPUSCULAR HEMOGLOBIN 27.7 pg 25.7-32.2 (BEAKER) (test code = 751) MEAN CORPUSCULAR HEMOGLOBIN CONC 33.6 GM/DL 32.3-36.5 (BEAKER) (test code = 752) RED CELL DISTRIBUTION WIDTH 12.2 % 11.6-14.4 (BEAKER) (test code = 412) PLATELET COUNT (BEAKER) (test 151 K/CU MM 150-450 code = 756) MEAN PLATELET VOLUME (BEAKER) 9.9 fL 9.4-12.4 (test code = 754) NUCLEATED RED BLOOD CELLS 0 /100 WBC 0-0 (BEAKER) (test code = 413) POCT-GLUCOSE [id number] 21:06:34 Test Item Value Reference Range Interpretation Comments POC-GLUCOSE METER 189 mg/dL 70-110 H : TESTED A T [facility] 6720 (BEAKER) (test code = [facility], 1538) [address]: 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 ID = [id number] for FARA ARAYALYLA MATIAS POCT-GLUCOSE [id number] 16:34:38 Test Item Value Reference Range Interpretation Comments POC-GLUCOSE METER 158 mg/dL 70-110 H : TESTED A T [facility] 6720 (BEAKER) (test code = [facility], 1538) [address]: 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 ID = [id number] for VAHID SAMPSONA POCT-GLUCOSE [id number] 11:18:08 Test Item Value Reference Range Interpretation Comments POC-GLUCOSE METER 173 mg/dL 70-110 H : TESTED A T [facility] 6720 (BEAKER) (test code = [facility], 1538) [address]: 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 ID = [id number] for BA FORBES [id number] 10:12:27 Test Item Value Reference Range Interpretation Comments MAGNESIUM (BEAKER) (test code = 2.6 mg/dL 1.6-2.6 627) Injection Molding Machine Offbearer ID - DOUG [id number] 10:12:27 Test Item Value Reference Range Interpretation Comments POTASSIUM (BEAKER) (test code = 3.5 meq/L 3.5-5.1 379) Injection Molding Machine Offbearer ID - DOUG BPOCT-GLUCOSE [id number] 09:49:17 Test Item Value Reference Range Interpretation Comments POC-GLUCOSE METER 100 mg/dL 70-110 : TESTED A T [facility] 6720 (BEAKER) (test code = [facility], 1538) [address]: 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 ID = [id number] for WADE QUINN BASIC METABOLIC [id number] 02:33:57 Test Item Value Reference Range Interpretation Comments SODIUM (BEAKER) 138 meq/L 136-145 (test code = 381) POTASSIUM 2.5 meq/L 3.5-5.1 LL (BEAKER) (test code = 379) CHLORIDE (BEAKER) 107 meq/L 98-107 (test code = 382) CO2 (BEAKER) 20 meq/L 22-29 L (test code = 355) BLOOD UREA 10 mg/dL 7-21 NITROGEN (BEAKER) (test code = 354) CREATININE 0.58 mg/dL 0.57-1.25 (BEAKER) (test code = 358) GLUCOSE RANDOM 84 mg/dL 70-105 (BEAKER) (test code = 652) CALCIUM (BEAKER) 7.5 mg/dL 8.4-10.2 L (test code = 697) EGFR (BEAKER) 105 Interpretatio n of eGFR (test code = mL/min/1.73 values Stage De scription 1092) sq m Result G1 Sakshi l or high >=90 G2 Mildly decreased 60-89 G3a Mildl y to moderately 45-5 9 G3b Moderately to s everely 30-44 G4 Severl y decreased 15-29 G5 Kidney failure <15Reported eGF R is based on the CKD-EPI 2020 equation that d oes not use a race coefficientEsti mated GFR is not as accur ate as Creatinine Rema couch in predicting glom erular filtration rate . Estimated GFR is not appl icable for dialysis patien ts Injection Molding Machine Offbearer ID - RICHARD [id number] 02:18:19 Test Item Value Reference Range Interpretation Comments MAGNESIUM (BEAKER) (test code = 1.1 mg/dL 1.6-2.6 L 627) Injection Molding Machine Offbearer ID - RICHARD LCBC (HEMOGRAM ONLY)2022-04-03 01:40:33 Test Item Value Reference Range Interpretation Comments WHITE BLOOD CELL COUNT (BEAKER) 5.9 K/ L 3.5-10.5 (test code = 775) RED BLOOD CELL COUNT (BEAKER) 3.99 M/ L 4.63-6.08 L (test code = 761) HEMOGLOBIN (BEAKER) (test code = 10.9 GM/DL 13.7-17.5 L 410) HEMATOCRIT (BEAKER) (test code = 32.6 % 40.1-51.0 L 411) MEAN CORPUSCULAR VOLUME (BEAKER) 82 fL 79-92 (test code = 753) MEAN CORPUSCULAR HEMOGLOBIN 27.3 pg 25.7-32.2 (BEAKER) (test code = 751) MEAN CORPUSCULAR HEMOGLOBIN CONC 33.4 GM/DL 32.3-36.5 (BEAKER) (test code = 752) RED CELL DISTRIBUTION WIDTH 11.9 % 11.6-14.4 (BEAKER) (test code = 412) PLATELET COUNT (BEAKER) (test 133 K/CU MM 150-450 L code = 756) MEAN PLATELET VOLUME (BEAKER) 9.8 fL 9.4-12.4 (test code = 754) NUCLEATED RED BLOOD CELLS 0 /100 WBC 0-0 (BEAKER) (test code = 413) CT, BRAIN, WITHOUT [id number] 21:05:[address] [facility] CENTERName: JT BRINK : 1955 Sex: MFINAL REPORT CT, BRAIN, WITHOUT CONTRAST CLINICAL INDICATION: Mental status change, unknown cause COMPARISON: 09/30/2021 TECHNIQUE: Noncontrast axial CT imaging of the brain and skull. DOSE REDUCTION: Dose modulation, iterative reconstruction, and/or weight-based adjustment of the mA/kV was utilized to reduce the radiation dose to as low as reasonably achievable. FINDINGS:Status post left temporal craniotomy with interval repeat resection of tumor. No acute intracranial hemorrhage or postoperative complication is identified. The previously described lesion of the left lentiform nucleus now demonstrates slight volume loss and is better evaluated with prior MRI (post treatment effect versus residual tumor. Incidental note is again made of small extra-axial lesion along the right tentorium, statistically representing an incidental meningioma. Scattered foci of hypoattenuation are present throughout the periventricular and subcortical white matter, and, although nonspecific by imaging, statistically represent mild chronic microvascular ischemic changes in this age group. No hydrocephalus. Orbits are within normal limits. Prior bilateral lens surgery. Atherosclerotic calcification of the intracranial internal carotid arteries. No obstructive paranasal sinus disease. IMPRESSION: Interval repeat resection of tumor compared to 10/01/2019.No acute intracranial findings. No new mass effect, midline shift or herniation. If there is persistent clinical concern for intracranial pathology, MR examination is recommended for further characterization. Signed: Evelyn Victor Verified Date/Time: 04/02/2022 21:05:40 POCT-GLUCOSE [id number] 20:17:18 Test Item Value Reference Range Interpretation Comments POC-GLUCOSE METER 114 mg/dL 70-110 H : TESTED A T [facility] 6720 ([employer]) (test code = [facility], 1538) [address]: 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 ID = [id number] for Co bb (V), Noris POCT-GLUCOSE [id number] 13:38:29 Test Item Value Reference Range Interpretation Comments POC-GLUCOSE METER 112 mg/dL 70-110 H : TESTED A T [place] [address] (BEAKER) (test code = [facility], 153) [address]: 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 ID = [id number] for MA THEW, MINI POC ACTIVATED CLOTTING [id number] 10:21:26 Test Item Value Reference Range Interpretation Comments Activated Clotting Time 318 sec : 74 -137 seconds, (test code = 3184-9) Baselin e: TESTED AT [address], [address]: 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 ID = [id number] for MC CURDY, DAFFODIL [facility] ACTIVATED CLOTTING [id number] 10:21:26 Test Item Value Reference Range Interpretation Comments Activated Clotting Time 318 sec : 74 -137 seconds, (test code = 3184-9) Baselin e: TESTED AT [address], [address]: 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 ID = [id number] for MC CURDY, DAFFODIL [facility] ACTIVATED CLOTTING [id number] 10:21:26 Test Item Value Reference Range Interpretation Comments Activated Clotting Time 318 sec : 74 -137 seconds, (test code = 3184-9) Baselin e: TESTED AT [address], [address]: 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 ID = [id number] for MC CURDY, DAFFODIL [facility] ACTIVATED CLOTTING [id number] 10:21:26 Test Item Value Reference Range Interpretation Comments Activated Clotting Time 318 sec : 74 -137 seconds, (test code = 3184-9) Baselin e: TESTED AT [address], [address]: 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 ID = [id number] for MC CURDY, DAFFODIL [id number] 10:21:26 Test Item Value Reference Range Interpretation Comments ACTIVATED CLOTTING TIME 318 sec : 74 -137 seconds, (BEAKER) (test code = Baseli ne: TESTED AT 441) [address], [facility] 30: 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 ID = [id number] for STANLEY WATTS, DAFFODIL [id number] 10:21:25 Test Item Value Reference Range Interpretation Comments ACTIVATED CLOTTING TIME 288 sec : 74 -137 seconds, (BEAKER) (test code = Sylvester ne: TESTED AT 441) [address], [facility] 30: 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 ID = [id number] for STANLEY WATTS, DAFFODIL [id number] 09:58:31 Test Item Value Reference Range Interpretation Comments ACTIVATED CLOTTING TIME 277 sec : 74 -137 seconds, (BEAKER) (test code = Sylvester ne: TESTED AT 441) [address], [facility] 30: 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 ID = [id number] for STANLEY WATTS, RAULFODIL [id number] 09:18:58 Test Item Value Reference Range Interpretation Comments ACTIVATED CLOTTING TIME 335 sec : 74 -137 seconds, (BEAKER) (test code = Sylvester ne: TESTED AT 441) [address], [facility] 30: 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 ID = [id number] for STANLEY WATTS, MANISHADIL [id number] 07:01:21 Test Item Value Reference Range Interpretation Comments PROTIME (BEAKER) (test 13.6 seconds 11.9-14.2 code = 759) INR (BEAKER) (test 1.10 See_Comment [Automat ed code = 370) message] The sy stem which generated this result transmitted reference range : <=5.90. The reference range was not used to interpret this result as normal/abnormal . PARTIAL THROMBOPLASTIN 36.3 seconds 22.5-36.0 H TIME (BEAKER) (test code = 760) RECOMMENDED COUMADIN/WARFARIN INR THERAPY RANGESSTANDARD DOSE: 2.0 - 3.0 Includes: PROPHYLAXIS for venous thrombosis, systemic embolization; TREATMENT for venous thrombosis and/or pulmonary embolus.HIGH RISK: Target INR is 2.5-3.5 for patients with mechanical heart valves.BASIC METABOLIC [id number] 06:56:19 Test Item Value Reference Range Interpretation Comments SODIUM (BEAKER) 144 meq/L 136-145 (test code = 381) POTASSIUM 3.7 meq/L 3.5-5.1 (BEAKER) (test code = 379) CHLORIDE (BEAKER) 105 meq/L 98-107 (test code = 382) CO2 (BEAKER) 24 meq/L 22-29 (test code = 355) BLOOD UREA 21 mg/dL 7-21 NITROGEN (BEAKER) (test code = 354) CREATININE 0.84 mg/dL 0.57-1.25 (BEAKER) (test code = 358) GLUCOSE RANDOM 112 mg/dL 70-105 H (BEAKER) (test code = 652) CALCIUM (BEAKER) 9.6 mg/dL 8.4-10.2 (test code = 697) EGFR (BEAKER) 96 Interpretatio n of eGFR (test code = mL/min/1.73 values Stage De scription 1092) sq m Result G1 Norm al or high >=90 G2 Mildly decreased 60-89 G3a Mildl y to moderately 45-5 9 G3b Moderately to s everely 30-44 G4 Severl y decreased 15-29 G5 Kidney failure <15Reported eGF R is based on the CKD-EPI 2020 equation that d oes not use a race coefficientEsti mated GFR is not as accur ate as Creatinine Rema khoa in predicting glom erular filtration rate . Estimated GFR is not appl icable for dialysis patien ts Injection Molding Machine Offbearer ID - AIMEE MCBC W/PLT COUNT & AUTO [id number] 06:41:35 Test Item Value Reference Range Interpretation Comments WHITE BLOOD CELL COUNT (BEAKER) 7.0 K/ L 3.5-10.5 (test code = 775) RED BLOOD CELL COUNT (BEAKER) 5.06 M/ L 4.63-6.08 (test code = 761) HEMOGLOBIN (BEAKER) (test code = 13.8 GM/DL 13.7-17.5 410) HEMATOCRIT (BEAKER) (test code = 40.8 % 40.1-51.0 411) MEAN CORPUSCULAR VOLUME (BEAKER) 81 fL 79-92 (test code = 753) MEAN CORPUSCULAR HEMOGLOBIN 27.3 pg 25.7-32.2 (BEAKER) (test code = 751) MEAN CORPUSCULAR HEMOGLOBIN CONC 33.8 GM/DL 32.3-36.5 (BEAKER) (test code = 752) RED CELL DISTRIBUTION WIDTH 12.1 % 11.6-14.4 (BEAKER) (test code = 412) PLATELET COUNT (BEAKER) (test 176 K/CU MM 150-450 code = 756) MEAN PLATELET VOLUME (BEAKER) 10.0 fL 9.4-12.4 (test code = 754) NUCLEATED RED BLOOD CELLS 0 /100 WBC 0-0 (BEAKER) (test code = 413) NEUTROPHILS RELATIVE PERCENT 60 % (BEAKER) (test code = 429) LYMPHOCYTES RELATIVE PERCENT 26 % (BEAKER) (test code = 430) MONOCYTES RELATIVE PERCENT 9 % (BEAKER) (test code = 431) EOSINOPHILS RELATIVE PERCENT 5 % (BEAKER) (test code = 432) BASOPHILS RELATIVE PERCENT 0 % (BEAKER) (test code = 437) NEUTROPHILS ABSOLUTE COUNT 4.22 K/ L 1.78-5.38 (BEAKER) (test code = 670) LYMPHOCYTES ABSOLUTE COUNT 1.82 K/ L 1.32-3.57 (BEAKER) (test code = 414) MONOCYTES ABSOLUTE COUNT (BEAKER) 0.60 K/ L 0.30-0.82 (test code = 415) EOSINOPHILS ABSOLUTE COUNT 0.34 K/ L 0.04-0.54 (BEAKER) (test code = 416) BASOPHILS ABSOLUTE COUNT (BEAKER) 0.03 K/ L 0.01-0.08 (test code = 417) IMMATURE GRANULOCYTES-RELATIVE 0.10 % 0.00-1.00 PERCENT (BEAKER) (test code = 2801) COMPREHENSIVE METABOLIC [id number] 16:11:20 Test Item Value Reference Range Interpretation Comments GLUCOSE (test code = See_Comment H [Autom ated message] 2345-7) The system whic h generated this result transmitted ref erence range: 70 - 99 MG/DL. The reference r serg was not used to interpret this result as normal/abnor mal. BLOOD UREA NITROGEN See_Comment [Automa rylee message] (test code = 3091-6) The sys tem which generated this result transmitted ref erence range: 8 - 23 M G/DL. The reference r serg was not used to interpret this result as normal/abnor mal. CREATININE (test code = See_Comment [Au tomated message] 2160-0) The system [facility] generated this result transmitted ref erence range: 0.8 - 1. 4 MG/DL. The refe rence range was not u sed to interpret this result as normal/abnor mal. EGFR (test code = See_Comment [Automate d message] 12152-2) The system [facility] generated this result transmitted ref erence range: >60 ML/MIN/1.73. Th e reference range was not used to int erpret this result as normal/abnormal . BUN/CREAT RATIO (test See_Comment H [Auto mated message] code = 3097-3) The system [facility] generated this result transmitted ref erence range: 6 - 28 R ATIO. The reference r serg was not used to interpret this result as normal/abnor mal. SODIUM (test code = See_Comment [Automa rylee message] 2951-2) The system [facility] generated this result transmitted ref erence range: 133 - 14 6 MEQ/L. The refe rence range was not u sed to interpret this result as normal/abnor mal. POTASSIUM (test code = See_Comment L [Aut omated message] 6113-3) The system [facility] generated this result transmitted ref erence range: 3.5 - 5. 4 MEQ/L. The refe rence range was not u sed to interpret this result as normal/abnor mal. CHLORIDE (test code = See_Comment [Auto mated message] 8705-0) The system [facility] generated this result transmitted ref erence range: 100 - 11 2 MEQ/L. The refe rence range was not u sed to interpret this result as normal/abnor mal. CO2 (test code = See_Comment [Automated message] 1962-8) The system [facility] generated this result transmitted ref erence range: 21 - 30 MEQ/L. The reference r serg was not used to interpret this result as normal/abnor mal. CALCIUM (test code = See_Comment [Autom ated message] 83644-6) The system [facility] generated this result transmitted ref erence range: 8.5 - 10 .5 MG/DL. The refe rence range was not u sed to interpret this result as normal/abnor mal. PROTEIN TOTAL (test See_Comment [Automa rylee message] code = 2885-2) The system [employer] generated this result transmitted ref erence range: 6.1 - 8. 1 G/DL. The reference r serg was not used to interpret this result as normal/abnor mal. ALBUMIN (test code = See_Comment [Autom ated message] 81330-6) The system [employer] generated this result transmitted ref erence range: 3.4 - 4. 8 G/DL. The reference r serg was not used to interpret this result as normal/abnor mal. GLOBULINS, SERUM, TOTAL See_Comment [Au tomated message] (test code = 90896-7) The sy stem which generated this result transmitted ref erence range: 1.9 - 3. 7 G/DL. The reference r serg was not used to interpret this result as normal/abnor mal. A/G RATIO (test code = See_Comment [Aut omated message] 1759-0) The system [employer] generated this result transmitted ref erence range: 1.0 - 2. 6 RATIO. The refe rence range was not u sed to interpret this result as normal/abnor mal. BILIRUBIN TOTAL (test See_Comment [Auto mated message] code = 1975-2) The system [employer] generated this result transmitted ref erence range: <=1.2 MG /DL. The reference r serg was not used to interpret this result as normal/abnor mal. ALKALINE PHOSPHATASE 84 U/L 30-132 (test code = 6768-6) AST (SGOT) (test code = 17 U/L 7-56 1920-8) ALT (SGPT) (test code = 13 U/L 3-47 ABNER TING PERFORMED AT 1744-2) [facility], [place], [address] [place] [address] CLIA NO. [id number] Unle ss Otherwise Indic ated, All Testing Per formed At: [facility], [address] [place] [address] Laborator y Director: Casey Ann M.D. CLIA Number [id number] Cap Accreditation N o. [id number] Lab Interpretation Abnormal (test code = 21948-1) [facility] W/AUTO DIFF WITH [id number] 15:35:10 Test Item Value Reference Range Interpretation Comments WHITE BLOOD CELL COUNT See_Comment [Aut omated message] (test code = 03873-2) The sy stem which generated this result transmitted ref erence range: 3.5 - 11 .0 K/UL. The refer ence range was not u sed to interpret this result as normal/abnor mal. RED BLOOD CELL COUNT See_Comment [Autom ated message] (test code = 55013-4) The sy stem which generated this result transmitted ref erence range: 4.50 - 6 .10 M/UL. The refer ence range was not u sed to interpret this result as normal/abnor mal. HEMOGLOBIN (test code = See_Comment [Au tomated message] 718-7) The system whic h generated this result transmitted ref erence range: 13.5 - 1 7.0 G/DL. The refer ence range was not u sed to interpret this result as normal/abnor mal. HEMATOCRIT (test code = 40.8 % 40.0-51.0 60241-7) MEAN CORPUSCULAR VOLUME 84.0 fL 80.0-99.0 (test code = 38359-5) MEAN CORPUSCULAR 27.8 PG 25.0-33.0 HEMOGLOBIN (test code = 58509-5) MEAN CORPUSCULAR See_Comment [Automated message] HEMOGLOBIN CONC (test The sy stem which code = 76628-0) generated th is result transmitted ref erence range: 31.0 - 3 6.0 G/DL. The refer ence range was not u sed to interpret this result as normal/abnor mal. RED CELL DISTRIBUTION 12.3 % 11.5-15.0 WIDTH (test code = 22535-8) NEUTROPHILS % (test code 55 % = 11815-0) LYMPHOCYTES % (test code 28 % = 81600-7) MONOCYTES % (test code = 10 % 19639-6) EOSINOPHILS % (test code 7 % = 36504-8) BASOPHILS % (test code = 0 % 24595-5) PLATELET COUNT (test See_Comment TESTIN G PERFORMED AT code = 33814-2) [facility], [address], [address] [place] [address] CLIA NO. [id number] [Aut omated message] The sy stem which generated this result transmit rylee reference range : 130 - 400 K/UL. The reference range was not used to int erpret this result as normal/abnormal . NEUTROPHILS ABSOLUTE See_Comment [Autom ated message] COUNT (test code = The syste m which 22439-6) generated this result transmitted ref erence range: 1.50 - 7 .50 K/UL. The refer ence range was not u sed to interpret this result as normal/abnor mal. LYMPHOCYTES ABSOLUTE See_Comment [Autom ated message] COUNT (test code = The syste m which 97511-1) generated this result transmitted ref erence range: 1.00 - 4 .00 K/UL. The refer ence range was not u sed to interpret this result as normal/abnor mal. MONOCYTES ABSOLUTE COUNT See_Comment [A utomated message] (test code = 99336-0) The sy stem which generated this result transmitted ref erence range: 0.20 - 1 .00 K/UL. The refer ence range was not u sed to interpret this result as normal/abnor mal. BASOPHILS ABSOLUTE COUNT See_Comment Un less Otherwise (test code = 58802-1) [facility], All Testing Performed At: [facility], [address] [place] [address] [facility] y Director: Casey Ann M.D. CLIA Number [id number] Cap Accreditation N o. [id number] [Autom ated message] The sy stem which generated this result transmit rylee reference range : 0.00 - 0.20 K/UL. Th e reference range was not used to int erpret this result as normal/abnormal . 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 Comparisons: 12/20/2021 Findings: Left temporal lobe resection cavity with marginal thin curvilinear enhancement posteriorly, demonstrate reduced nodularity compared to prior examination. There is increased T2 FLAIR hyperintensity alongthe margin of the cavity and within the periventricular white matter. Left No acute infarct or acuteintracranial hemorrhage. No hydrocephalus. No midline shift. Left basal ganglia 5 mm enhancing T2 FLAIR hyperintense lesion is stable. New 5 mm extra-axial enhancing lesion along the inferior aspect ofthe right tentorium. Remote pontine infarct. Extensive left hemispheric peripheral susceptibility artifact associated with left craniotomy and subjacent resection changes. Additional punctate areas of c hronic microhemorrhage within the right cerebral hemisphere and cerebellum. Expected intracranial arterial flow voids and skull base are present. Osseous structures are stable. Orbits, globes, paranasal sinuses and mastoid air cells without acute finding. IMPRESSION: Left temporal lobe resection cavity with reduced margin of nodular enhancing tissue and increased surrounding T2 FLAIR hyperintensity suggesting posttreatment changes. Increased white matter T2 FLAIR hyperintensities likely posttreatment effect. Left lentiform nucleus 5 mm enhancing lesion with T2 FLAIR hyperintensity is unchanged concerning for malignancy versus posttreatment effect. Development of 5 mm extra-axial enhancing lesion along the right tentorium likely a meningioma but indeterminate. Attention on short-term follow-up imaging. Signed: Michel Pickettort Verified Date/Time: 02/26/2022 15:47:20 SARS-CoV2/RT-PCR (Asymptomatic ONLY)2021-12-29 20:18:48 Test Item Value Reference Range Interpretation Comments SARS-COV2/RT-PCR (test Negative Negative code = 09585-9) DAMIAN (test code = DAMIAN) Negative result for this test determines that SARS-CoV-2 RNA was not present in the specimen above the Limit of Detection (LOD). However, Negative results do not preclude SARS-CoV-2 infection and should not be used as the sole basis for treatment or patient management decisions. Negative results must be combined with clinical observations, patient history, and epidemiological information. A false negative result may occur if a specimen is improperly collected, transported, or handled. A false negative result should be considered if patient's recent exposures or clinical presentation indicate that COVID-19 (SARS-CoV-2) is likely and diagnostic tests for other causes of illness are negative. Re-testing should be considered in cases of suspected false negatives. The limit of detection for this assay is 100 copies/mL. This SARS-CoV-2 test is a real-time RT_PCR test intended for the qualitative detection of nucleic acid from SARS-CoV-2 in a nasopharyngeal swab specimen collected from individuals suspected of COVID-19 by their healthcare provider. This test has not been Food and Drug Administration (FDA) cleared or approved. This is a modified version of an approved Emergency Use Authorization (EUA) and is in the process of review by the FDA. Once authorized by the FDA, the issued EUA will be effective until the declaration that circumstances exist justifying the authorization of the emergency use of in vitro diagnostic tests for detection and/or diagnosis of COVID-19 is terminated under Section 564(b)(2) of the Act or the EUA is revoked under Section 564(g) of the Act. Testing was performed using the Jeffrey SARS-CoV-2 assay. Fact Sheet for Healthcare Providers:https://www.jennifer curry.kulwant/cherie/RT SARS-CoV-2 HCP Fact Sheet 51-150811.pdf Fact Sheet for Healthcare Patients:https://www.yousif horn.jeffrey/cherie/RT SARS-CoV-2 Patient Fact Sheet EN 51-326226Y4.pdf Lab Interpretation Normal (test code = 38038-8) [facility]2021-12-29 20:18:48 Test Item Value Reference Range Interpretation Comments SARS-COV2/RT-PCR (test Negative Negative code = 78707-3) DAMIAN (test code = DAMIAN) Negative result for this test determines that SARS-CoV-2 RNA was not present in the specimen above the Limit of Detection (LOD). However, Negative results do not preclude SARS-CoV-2 infection and should not be used as the sole basis for treatment or patient management decisions. Negative results must be combined with clinical observations, patient history, and epidemiological information. A false negative result may occur if a specimen is improperly collected, transported, or handled. A false negative result should be considered if patient's recent exposures or clinical presentation indicate that COVID-19 (SARS-CoV-2) is likely and diagnostic tests for other causes of illness are negative. Re-testing should be considered in cases of suspected false negatives. The limit of detection for this assay is 100 copies/mL. This SARS-CoV-2 test is a real-time RT_PCR test intended for the qualitative detection of nucleic acid from SARS-CoV-2 in a nasopharyngeal swab specimen collected from individuals suspected of COVID-19 by their healthcare provider. This test has not been Food and Drug Administration (FDA) cleared or approved. This is a modified version of an approved Emergency Use Authorization (EUA) and is in the process of review by the FDA. Once authorized by the FDA, the issued EUA will be effective until the declaration that circumstances exist justifying the authorization of the emergency use of in vitro diagnostic tests for detection and/or diagnosis of COVID-19 is terminated under Section 564(b)(2) of the Act or the EUA is revoked under Section 564(g) of the Act. Testing was performed using the Jeffrey SARS-CoV-2 assay. Fact Sheet for Healthcare Providers:https://www.jennifer chtaterjee/cherie/RT SARS-CoV-2 HCP Fact Sheet 51-130352.pdf Fact Sheet for Healthcare Patients:https://www.yousif horn.jeffrey/cherie/RT SARS-CoV-2 Patient Fact Sheet EN 51-589193O8.pdf Lab Interpretation Normal (test code = 93851-4) [facility]2021-12-29 20:18:48 Test Item Value Reference Range Interpretation Comments SARS-COV2/RT-PCR (test Negative Negative code = 38932-3) DAMIAN (test code = DAMIAN) Negative result for this test determines that SARS-CoV-2 RNA was not present in the specimen above the Limit of Detection (LOD). However, Negative results do not preclude SARS-CoV-2 infection and should not be used as the sole basis for treatment or patient management decisions. Negative results must be combined with clinical observations, patient history, and epidemiological information. A false negative result may occur if a specimen is improperly collected, transported, or handled. A false negative result should be considered if patient's recent exposures or clinical presentation indicate that COVID-19 (SARS-CoV-2) is likely and diagnostic tests for other causes of illness are negative. Re-testing should be considered in cases of suspected false negatives. The limit of detection for this assay is 100 copies/mL. This SARS-CoV-2 test is a real-time RT_PCR test intended for the qualitative detection of nucleic acid from SARS-CoV-2 in a nasopharyngeal swab specimen collected from individuals suspected of COVID-19 by their healthcare provider. This test has not been Food and Drug Administration (FDA) cleared or approved. This is a modified version of an approved Emergency Use Authorization (EUA) and is in the process of review by the FDA. Once authorized by the FDA, the issued EUA will be effective until the declaration that circumstances exist justifying the authorization of the emergency use of in vitro diagnostic tests for detection and/or diagnosis of COVID-19 is terminated under Section 564(b)(2) of the Act or the EUA is revoked under Section 564(g) of the Act. Testing was performed using the Jeffrey SARS-CoV-2 assay. Fact Sheet for Healthcare Providers:https://www.jennifer chatterjee/cherie/RT SARS-CoV-2 HCP Fact Sheet 51-274894.pdf Fact Sheet for Healthcare Patients:https://www.yousif horn.jeffrey/cherie/RT SARS-CoV-2 Patient Fact Sheet EN 51-743470X8.pdf Lab Interpretation Normal (test code = 07547-4) [facility]2021-12-29 20:18:48 Test Item Value Reference Range Interpretation Comments SARS-COV2/RT-PCR (test Negative Negative code = 45776-2) DAMIAN (test code = DAMIAN) Negative result for this test determines that SARS-CoV-2 RNA was not present in the specimen above the Limit of Detection (LOD). However, Negative results do not preclude SARS-CoV-2 infection and should not be used as the sole basis for treatment or patient management decisions. Negative results must be combined with clinical observations, patient history, and epidemiological information. A false negative result may occur if a specimen is improperly collected, transported, or handled. A false negative result should be considered if patient's recent exposures or clinical presentation indicate that COVID-19 (SARS-CoV-2) is likely and diagnostic tests for other causes of illness are negative. Re-testing should be considered in cases of suspected false negatives. The limit of detection for this assay is 100 copies/mL. This SARS-CoV-2 test is a real-time RT_PCR test intended for the qualitative detection of nucleic acid from SARS-CoV-2 in a nasopharyngeal swab specimen collected from individuals suspected of COVID-19 by their healthcare provider. This test has not been Food and Drug Administration (FDA) cleared or approved. This is a modified version of an approved Emergency Use Authorization (EUA) and is in the process of review by the FDA. Once authorized by the FDA, the issued EUA will be effective until the declaration that circumstances exist justifying the authorization of the emergency use of in vitro diagnostic tests for detection and/or diagnosis of COVID-19 is terminated under Section 564(b)(2) of the Act or the EUA is revoked under Section 564(g) of the Act. Testing was performed using the Jeffrey SARS-CoV-2 assay. Fact Sheet for Healthcare Providers:https://www.jennifer chatterjee/cherie/RT SARS-CoV-2 HCP Fact Sheet 51-412737.pdf Fact Sheet for Healthcare Patients:https://www.yousif horn.jeffrey/cherie/RT SARS-CoV-2 Patient Fact Sheet EN 51-199201Z8.pdf Lab Interpretation Normal (test code = 21011-4) [facility]2021-12-29 20:18:48 Test Item Value Reference Range Interpretation Comments SARS-COV2/RT-PCR (test Negative Negative code = 07186-1) DAMIAN (test code = DAMIAN) Negative result for this test determines that SARS-CoV-2 RNA was not present in the specimen above the Limit of Detection (LOD). However, Negative results do not preclude SARS-CoV-2 infection and should not be used as the sole basis for treatment or patient management decisions. Negative results must be combined with clinical observations, patient history, and epidemiological information. A false negative result may occur if a specimen is improperly collected, transported, or handled. A false negative result should be considered if patient's recent exposures or clinical presentation indicate that COVID-19 (SARS-CoV-2) is likely and diagnostic tests for other causes of illness are negative. Re-testing should be considered in cases of suspected false negatives. The limit of detection for this assay is 100 copies/mL. This SARS-CoV-2 test is a real-time RT_PCR test intended for the qualitative detection of nucleic acid from SARS-CoV-2 in a nasopharyngeal swab specimen collected from individuals suspected of COVID-19 by their healthcare provider. This test has not been Food and Drug Administration (FDA) cleared or approved. This is a modified version of an approved Emergency Use Authorization (EUA) and is in the process of review by the FDA. Once authorized by the FDA, the issued EUA will be effective until the declaration that circumstances exist justifying the authorization of the emergency use of in vitro diagnostic tests for detection and/or diagnosis of COVID-19 is terminated under Section 564(b)(2) of the Act or the EUA is revoked under Section 564(g) of the Act. Testing was performed using the Jeffrey SARS-CoV-2 assay. Fact Sheet for Healthcare Providers:https://www.jennifer chatterjee/cherie/RT SARS-CoV-2 HCP Fact Sheet 51-163878.pdf Fact Sheet for Healthcare Patients:https://www.yousif horn.jeffrey/cherie/RT SARS-CoV-2 Patient Fact Sheet EN 51-963079V3.pdf Lab Interpretation Normal (test code = 79231-6) [facility]2021-12-29 20:18:48 Test Item Value Reference Range Interpretation Comments SARS-COV2/RT-PCR (test code = Negative Negative 1956962) Negative result for this test determines that SARS-CoV-2 RNA was not present in the specimen above the Limit of Detection (LOD). However, Negative results do not preclude SARS-CoV-2 infection and should not be used as the sole basis for treatment or patient management decisions. Negative results must be combined with clinical observations, patient history, and epidemiological information. A false negative result may occur if a specimen is improperly collected, transported, or handled. A false negative result should be considered if patient's recent exposures or clinical presentation indicate that COVID-19 (SARS-CoV-2) is likely and diagnostic tests for other causes of illness are negative. Re-testing should be considered in cases of suspected false negatives.The limit of detection for this assay is 100 copies/mL.This SARS-CoV-2 test is a real-time RT_PCR test intended for the qualitative detection of nucleic acid from SARS-CoV-2 in a nasopharyngeal swab specimen collected from individuals suspected of COVID-19 by their healthcare provider.This test has not been Food and Drug Administration (FDA) cleared or approved. This is a modified version of an approved Emergency Use Authorization (EUA) and is in the process of review by the FDA. Once authorized by the FDA, the issued EUA will be effective until the declaration that circumstances exist justifying the authorization of the emergency use of in vitro diagnostic tests for detection and/or diagnosis of COVID-19 is terminated under Section 564(b)(2) of the Act or the EUA is revoked under Section 564(g) of the Act.Testing was performed using t BadSeed SARS-CoV-2 assay.Fact Sheet for Healthcare Providers:https://www.Qubell.jeffrey/cherie/RT SARS-CoV-2 HCP Fact Sheet 51- 106026.pdfFact Sheet for Healthcare Patients:https://www.Qubell.jeffrey/cherie/RT SARS-CoV-2 Patient Fact Sheet EN 51-789465B9.pdfRAD, CHEST, 1 VIEW, NON DEPT 2021-12-29 09:13:00Reason for exam:->S/p ct surgeryShould this be performed at the bedside?->Yes [facility] 1955 Sex: MFINAL REPORT CHEST AP PORTABLE Comparison exam: 12/28/2021 History provided: Status post chest surgery Heart size normal. Minimal left basilar atelectasis. Lungs otherwise clear and vascularity normal. Signed: John Arora MDReport Verified Date/Time: 12/29/2021 09:13:33 Reading Location: [facility] Radiology Reading Room POC-Glucose [id number] 08:09:17 Test Item Value Reference Range Interpretation Comments POC-Glucose Meter (test 184 mg/dL 70-110 H : TE STED AT [facility] code = 1538) [address] [facility], 770 30: 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 ID = [id number] for Matthew Severino Lab Interpretation (test Abnormal code = 96931-3) [facility] [id number] 08:09:17 Test Item Value Reference Range Interpretation Comments POC-GLUCOSE METER 184 mg/dL 70-110 H : TESTED A T [facility] 6720 (BEAKER) (test code = BIJU Ferguson [facility], 1538) [address]: 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 ID = [id number] for Matthew Carlson BASIC METABOLIC [id number] 06:02:46 Test Item Value Reference Range Interpretation Comments SODIUM (BEAKER) 140 meq/L 136-145 (test code = 381) POTASSIUM 3.7 meq/L 3.5-5.1 (BEAKER) (test code = 379) CHLORIDE (BEAKER) 105 meq/L 98-107 (test code = 382) CO2 (BEAKER) 28 meq/L 22-29 (test code = 355) BLOOD UREA 19 mg/dL 7-21 NITROGEN (BEAKER) (test code = 354) CREATININE 0.84 mg/dL 0.57-1.25 (BEAKER) (test code = 358) GLUCOSE RANDOM 198 mg/dL 70-105 H (BEAKER) (test code = 652) CALCIUM (BEAKER) 9.2 mg/dL 8.4-10.2 (test code = 697) EGFR (BEAKER) 96 Interpretatio n of eGFR (test code = mL/min/1.73 values Stage De scription 1092) sq m Result G1 Sakshi l or high >=90 G2 Mildly decreased 60-89 G3a Mildl y to moderately 45-5 9 G3b Moderately to s everely 30-44 G4 Severl y decreased 15-29 G5 Kidney failure <15Reported eGF R is based on the CKD-EPI 2020 equation that d oes not use a race coefficientEsti mated GFR is not as accur ate as Creatinine Rema khoa in predicting glom erular filtration rate . Estimated GFR is not appl icable for dialysis patien ts Injection Molding Machine Offbearer ID Nisreen MCBRIDE [id number] (HEMOGRAM ONLY)2021-12-29 04:52:15 Test Item Value Reference Range Interpretation Comments WHITE BLOOD CELL COUNT (BEAKER) 5.2 K/ L 3.5-10.5 (test code = 775) RED BLOOD CELL COUNT (BEAKER) 3.13 M/ L 4.63-6.08 L (test code = 761) HEMOGLOBIN (BEAKER) (test code = 9.2 GM/DL 13.7-17.5 L 410) HEMATOCRIT (BEAKER) (test code = 26.7 % 40.1-51.0 L 411) MEAN CORPUSCULAR VOLUME (BEAKER) 85.3 fL 79.0-92.2 (test code = 753) MEAN CORPUSCULAR HEMOGLOBIN 29.4 pg 25.7-32.2 (BEAKER) (test code = 751) MEAN CORPUSCULAR HEMOGLOBIN CONC 34.5 GM/DL 32.3-36.5 (BEAKER) (test code = 752) RED CELL DISTRIBUTION WIDTH 12.9 % 11.6-14.4 (BEAKER) (test code = 412) PLATELET COUNT (BEAKER) (test 155 K/CU MM 150-450 code = 756) MEAN PLATELET VOLUME (BEAKER) 10.0 fL 9.4-12.4 (test code = 754) NUCLEATED RED BLOOD CELLS 0 /100 WBC 0-0 (BEAKER) (test code = 413) POCT-GLUCOSE [id number] 21:26:09 Test Item Value Reference Range Interpretation Comments POC-GLUCOSE METER 234 mg/dL 70-110 H : TESTED A T [facility] 6720 (BEAKER) (test code = [facility], 1538) [address]: 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 ID = [id number] for Chris Sharma POCT-GLUCOSE [id number] 17:46:59 Test Item Value Reference Range Interpretation Comments POC-GLUCOSE METER 215 mg/dL 70-110 H : TESTED A T [facility] 6720 (BEAKER) (test code = [facility], 1538) [address]: 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 ID = [id number] for Jessica Torres POCT-GLUCOSE [id number] 12:38:41 Test Item Value Reference Range Interpretation Comments POC-GLUCOSE METER 292 mg/dL 70-110 H : TESTED A T [facility] 6720 ([facility]) (test code = [facility], 1538) [address]: 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 ID = [id number] for OR KIRLIL CARPENTER RAD, CHEST, 1 VIEW, NON [id number] 11:12:00Reason for exam:->S/p ct surgeryShould this be performed at the bedside?->Yes [facility] BRINK : 1955 Sex: MFINAL REPORT CLINICAL HISTORY: S/p ct surgery TECHNIQUE: 1 view of the chest. COMPARISON: 12/27/2021 IMPRESSION: Left chest tube removed. Previous trace left apical pneumothorax no longer definitively seen. Left lower lung opacity unchanged. Right lung relatively well-aerated. The cardiomediastinal silhouette is magnified by technique. Signed: Debbie Oates MDReport Verified Date/Time: 12/28/2021 11:12:36 [facility] POCT- GLUCOSE [id number] 08:48:12 Test Item Value Reference Range Interpretation Comments POC-GLUCOSE METER 181 mg/dL 70-110 H : TESTED A T [facility] 6720 (BEAKER) (test code = BIJU Ferguson [facility], 1538) [address]: 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 ID = [id number] for OR SEBLE CARPENTERIS BASIC METABOLIC [id number] 06:58:20 Test Item Value Reference Range Interpretation Comments SODIUM (BEAKER) 141 meq/L 136-145 (test code = 381) POTASSIUM 3.5 meq/L 3.5-5.1 (BEAKER) (test code = 379) CHLORIDE (BEAKER) 106 meq/L 98-107 (test code = 382) CO2 (BEAKER) 27 meq/L 22-29 (test code = 355) BLOOD UREA 15 mg/dL 7-21 NITROGEN (BEAKER) (test code = 354) CREATININE 0.85 mg/dL 0.57-1.25 (BEAKER) (test code = 358) GLUCOSE RANDOM 159 mg/dL 70-105 H (BEAKER) (test code = 652) CALCIUM (BEAKER) 9.2 mg/dL 8.4-10.2 (test code = 697) EGFR (BEAKER) 96 Interpretatio n of eGFR (test code = mL/min/1.73 values Stage De scription 1092) sq m Result G1 Sakshi l or high >=90 G2 Mildly decreased 60-89 G3a Mildl y to moderately 45-5 9 G3b Moderately to s everely 30-44 G4 Severl y decreased 15-29 G5 Kidney failure <15Reported eGF R is based on the CKD-EPI 2020 equation that d oes not use a race coefficientEsti mated GFR is not as accur ate as Creatinine Rema khoa in predicting glom erular filtration rate . Estimated GFR is not appl icable for dialysis patien ts Injection Molding Machine Offbearer ID - RICHARD PERRYBC (HEMOGRAM ONLY)2021-12-28 05:17:31 Test Item Value Reference Range Interpretation Comments WHITE BLOOD CELL COUNT (BEAKER) 7.3 K/ L 3.5-10.5 (test code = 775) RED BLOOD CELL COUNT (BEAKER) 3.21 M/ L 4.63-6.08 L (test code = 761) HEMOGLOBIN (BEAKER) (test code = 9.4 GM/DL 13.7-17.5 L 410) HEMATOCRIT (BEAKER) (test code = 27.8 % 40.1-51.0 L 411) MEAN CORPUSCULAR VOLUME (BEAKER) 86.6 fL 79.0-92.2 (test code = 753) MEAN CORPUSCULAR HEMOGLOBIN 29.3 pg 25.7-32.2 (BEAKER) (test code = 751) MEAN CORPUSCULAR HEMOGLOBIN CONC 33.8 GM/DL 32.3-36.5 (BEAKER) (test code = 752) RED CELL DISTRIBUTION WIDTH 12.8 % 11.6-14.4 (BEAKER) (test code = 412) PLATELET COUNT (BEAKER) (test 143 K/CU MM 150-450 L code = 756) MEAN PLATELET VOLUME (BEAKER) 10.6 fL 9.4-12.4 (test code = 754) NUCLEATED RED BLOOD CELLS 0 /100 WBC 0-0 (BEAKER) (test code = 413) POCT-GLUCOSE [id number] 01:48:51 Test Item Value Reference Range Interpretation Comments POC-GLUCOSE METER 229 mg/dL 70-110 H : TESTED A T [facility] 6720 (BEAKER) (test code = [facility], 1538) 84251: 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 ID = [id number] for Pa viviane, Felimari POCT-GLUCOSE [id number] 21:30:15 Test Item Value Reference Range Interpretation Comments POC-GLUCOSE METER 254 mg/dL 70-110 H : TESTED A T [facility] 6720 (BEAKER) (test code = [facility], 1538) 08303: 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 ID = [id number] for Br istol, Nykia Limited 2D [id number] 17:41:53Ejection FractionSLEH ECHO HEARTLAB MKCKESSON CPACSCHI [facility] [id number] 17:41:53Ejection FractionSLEH ECHO HEARTLAB [facility] [id number] 17:41:53Ejection FractionSLEH ECHO HEARTLAB [facility] Echocardiogram 2021-12-27 17:41:53Ejection FractionSLEH ECHO HEARTLAB [facility] [id number] 17:41:53Ejection FractionSLEH ECHO [facility] HospitalRAD, CHEST, 1 VIEW, NON [id number] 09:12:00while patient is intubated or has chest tubes.Reason for exam:->Status post CV SurgeryShould thisbe performed at the bedside?->[facility] : 1955 Sex: MFINAL REPORT CLINICAL HISTORY: Status post CV Surgery TECHNIQUE: 1 view of the chest. COMPARISON: 12/26/2021 IMPRESSION: The left chest tube has been retracted with the sidehole now at the thoracic margin. There is a new trace left apical pneumothorax, with left chest wall subcutaneous emphysema. Left lower pleural parenchymal opacities are again seen. The right lung remains relatively well-aerated. The cardiomediastinal silhouette is magnified by technique. Signed: Debbie Oates MDReport Verified Date/Time: 12/27/2021 09:12:22 Reading Location: [facility] Radiology Reading Room CALCIUM, [id number] 06:32:22 Test Item Value Reference Range Interpretation Comments CALCIUM IONIZED (BEAKER) (test 1.19 mmol/L 1.12-1.27 code = 698) PH, BLOOD (BEAKER) (test code = 7.36 1810) [id number] 06:22:01 Test Item Value Reference Range Interpretation Comments MAGNESIUM (BEAKER) (test code = 2.2 mg/dL 1.6-2.6 627) Injection Molding Machine Offbearer ID - REED [id number] 06:22:01 Test Item Value Reference Range Interpretation Comments PHOSPHORUS (BEAKER) (test code = 3.6 mg/dL 2.3-4.7 604) Injection Molding Machine Offbearer ID - REED WBASIC METABOLIC [id number] 06:22:00 Test Item Value Reference Range Interpretation Comments SODIUM (BEAKER) 138 meq/L 136-145 (test code = 381) POTASSIUM (BEAKER) 3.3 meq/L 3.5-5.1 L (test code = 379) CHLORIDE (BEAKER) 105 meq/L 98-107 (test code = 382) CO2 (BEAKER) (test 25 meq/L 22-29 code = 355) BLOOD UREA NITROGEN 13 mg/dL 7-21 (BEAKER) (test code = 354) CREATININE (BEAKER) 0.97 mg/dL 0.57-1.25 (test code = 358) GLUCOSE RANDOM 187 mg/dL 70-105 H (BEAKER) (test code = 652) CALCIUM (BEAKER) 9.2 mg/dL 8.4-10.2 (test code = 697) EGFR (BEAKER) (test 77 mL/min/1.73 ESTIMA RYLEE GFR IS code = 1092) sq m NOT ACCURATE CREATININE CLEARANCE IN PREDICTING GLOMERULAR FILTRATION RATE . ESTIMATED GFR I S NOT APPLICABLE FOR DIALYSIS PATIEN TS. Injection Molding Machine Offbearer ID - REED WCBC (HEMOGRAM ONLY)2021-12-27 05:47:57 Test Item Value Reference Range Interpretation Comments WHITE BLOOD CELL COUNT (BEAKER) 8.3 K/ L 3.5-10.5 (test code = 775) RED BLOOD CELL COUNT (BEAKER) 3.34 M/ L 4.63-6.08 L (test code = 761) HEMOGLOBIN (BEAKER) (test code = 9.7 GM/DL 13.7-17.5 L 410) HEMATOCRIT (BEAKER) (test code = 28.7 % 40.1-51.0 L 411) MEAN CORPUSCULAR VOLUME (BEAKER) 85.9 fL 79.0-92.2 (test code = 753) MEAN CORPUSCULAR HEMOGLOBIN 29.0 pg 25.7-32.2 (BEAKER) (test code = 751) MEAN CORPUSCULAR HEMOGLOBIN CONC 33.8 GM/DL 32.3-36.5 (BEAKER) (test code = 752) RED CELL DISTRIBUTION WIDTH 12.7 % 11.6-14.4 (BEAKER) (test code = 412) PLATELET COUNT (BEAKER) (test 134 K/CU MM 150-450 L code = 756) MEAN PLATELET VOLUME (BEAKER) 10.4 fL 9.4-12.4 (test code = 754) NUCLEATED RED BLOOD CELLS 0 /100 WBC 0-0 (BEAKER) (test code = 413) POCT-GLUCOSE [id number] 01:00:28 Test Item Value Reference Range Interpretation Comments POC-GLUCOSE METER 190 mg/dL 70-110 H : TESTED A T [facility] 6720 (BEAKER) (test code = [facility], 153) 71735: 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 ID = [id number] for Pa viviane, Felimari POCT-GLUCOSE [id number] 13:11:50 Test Item Value Reference Range Interpretation Comments POC-GLUCOSE METER 172 mg/dL 70-110 H : TESTED A T [facility] 6720 (BEAKER) (test code [facility], = 1538) 84152: 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 ID = [id number] for Eliseo tracy (contract)Neil POCT-GLUCOSE [id number] 09:58:34 Test Item Value Reference Range Interpretation Comments POC-GLUCOSE METER 163 mg/dL 70-110 H : TESTED A T [facility] 6720 (BEAKER) (test code = [facility], 153) 81707: 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 ID = [id number] for Kelly carballo (contract), Merlene kirby RAD, CHEST, 1 VIEW, NON [id number] 08:33:00while patient is intubated or has chest tubes.Reason for exam:->Status post CV SurgeryShould thisbe performed at the bedside?->Yes [facility] 1955 Sex: MFINAL REPORT CLINICAL HISTORY: Status post CV Surgery TECHNIQUE: 1 view of the chest. COMPARISON: 12/25/2021 IMPRESSION: ETT and NGT removal. Right jugular line and left chest tube remain. No pneumothorax. There is increased left lung base pleural parenchymal opacity. There is slightly increased right infrahilar airspace opacity. The cardiomediastinal silhouette is magnified by technique. Signed: Debbie Oates Verified Date/Time: 12/26/2021 08:33:27 Reading Location: [facility] Radiology Reading Room POCT-GLUCOSE METER 2021-12-26 06:31:24 Test Item Value Reference Range Interpretation Comments POC-GLUCOSE METER 139 mg/dL 70-110 H : TESTED A T [facility] ([employer]) (test code = [facility], 153) 39054: 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 ID = [id number] for HILLARY Sin A POCT-GLUCOSE [id number] 06:28:56 Test Item Value Reference Range Interpretation Comments POC-GLUCOSE METER 103 mg/dL 70-110 : TESTED A T [facility] 6720 ([employer]) (test code = BIJU Ferguson [facility], 1539) 91482: 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 ID = [id number] for Shiraz lker -KELLY, RIN A [id number] 04:48:38 Test Item Value Reference Range Interpretation Comments PHOSPHORUS (BEAKER) (test code = 2.7 mg/dL 2.3-4.7 604) Injection Molding Machine Offbearer ID - REED WBASIC METABOLIC [id number] 04:48:37 Test Item Value Reference Range Interpretation Comments SODIUM (BEAKER) 138 meq/L 136-145 (test code = 381) POTASSIUM (BEAKER) 4.2 meq/L 3.5-5.1 (test code = 379) CHLORIDE (BEAKER) 106 meq/L 98-107 (test code = 382) CO2 (BEAKER) (test 25 meq/L 22-29 code = 355) BLOOD UREA NITROGEN 10 mg/dL 7-21 (BEAKER) (test code = 354) CREATININE (BEAKER) 0.77 mg/dL 0.57-1.25 (test code = 358) GLUCOSE RANDOM 123 mg/dL 70-105 H (BEAKER) (test code = 652) CALCIUM (BEAKER) 9.5 mg/dL 8.4-10.2 (test code = 697) EGFR (BEAKER) (test 101 mL/min/1.73 ESTIM ATED GFR IS code = 1092) sq m NOT ACCURATE CREATININE CLEARANCE IN PREDICTING GLOMERULAR FILTRATION RATE . ESTIMATED GFR I S NOT APPLICABLE FOR DIALYSIS PATIEN TS. Injection Molding Machine Offbearer ID - REED [id number] 04:48:37 Test Item Value Reference Range Interpretation Comments MAGNESIUM (BEAKER) (test code = 2.0 mg/dL 1.6-2.6 627) Injection Molding Machine Offbearer ID - REED WHGB/HCT (H&H)-Stat [id number] 04:37:36 Test Item Value Reference Range Interpretation Comments Hemoglobin (test code = 11.0 See_Comment L [Au tomated message] 786-4) The system [employer] generated this result transmitted ref erence range: 13.0 - 1 6.8 GM/DL. The refe rence range was not u sed to interpret this result as normal/abnor mal. Hematocrit (test code = 32.0 % 40.0-50.0 L 4544-3) Lab Interpretation (test Abnormal code = 59373-9) [facility] [id number] 04:37:36 Test Item Value Reference Range Interpretation Comments Glucose (test code = 2345-7) 124 mg/dL 70-110 H Lab Interpretation (test code = Abnormal 21117-2) [facility] CenterH[facility] (H&H)-Stat [id number] 04:37:36 Test Item Value Reference Range Interpretation Comments Hemoglobin (test code = 11.0 See_Comment L [Au tomated message] 786-4) The system [employer] generated this result transmitted ref erence range: 13.0 - 1 6.8 GM/DL. The refe rence range was not u sed to interpret this result as normal/abnor mal. Hematocrit (test code = 32.0 % 40.0-50.0 L 4544-3) Lab Interpretation (test Abnormal code = 36452-0) [facility] [id number] 04:37:36 Test Item Value Reference Range Interpretation Comments Glucose (test code = 2345-7) 124 mg/dL 70-110 H Lab Interpretation (test code = Abnormal 44238-4) [facility] ([facility]&H)-Stat [id number] 04:37:36 Test Item Value Reference Range Interpretation Comments Hemoglobin (test code = 11.0 See_Comment L [Au tomated message] 786-4) The system [employer] generated this result transmitted ref erence range: 13.0 - 1 6.8 GM/DL. The refe rence range was not u sed to interpret this result as normal/abnor mal. Hematocrit (test code = 32.0 % 40.0-50.0 L 4544-3) Lab Interpretation (test Abnormal code = 04764-7) [facility] [id number] 04:37:36 Test Item Value Reference Range Interpretation Comments Glucose (test code = 2345-7) 124 mg/dL 70-110 H Lab Interpretation (test code = Abnormal 48060-5) [facility] ([facility]&H[facility]Stat [id number] 04:37:36 Test Item Value Reference Range Interpretation Comments Hemoglobin (test code = 11.0 See_Comment L [Au tomated message] 786-4) The system [employer] generated this result transmitted ref erence range: 13.0 - 1 6.8 GM/DL. The refe rence range was not u sed to interpret this result as normal/abnor mal. Hematocrit (test code = 32.0 % 40.0-50.0 L 4544-3) Lab Interpretation (test Abnormal code = 93898-4) [facility] [id number] 04:37:36 Test Item Value Reference Range Interpretation Comments Glucose (test code = 2345-7) 124 mg/dL 70-110 H Lab Interpretation (test code = Abnormal 90753-6) [facility] CenterH[facility] ([facility]&H[facility]Stat [id number] 04:37:36 Test Item Value Reference Range Interpretation Comments Hemoglobin (test code = 11.0 See_Comment L [Au tomated message] 786-4) The system [employer] generated this result transmitted ref erence range: 13.0 - 1 6.8 GM/DL. The refe rence range was not u sed to interpret this result as normal/abnor mal. Hematocrit (test code = 32.0 % 40.0-50.0 L 4544-3) Lab Interpretation (test Abnormal code = 21650-8) [facility]Gl[facility]Stat [id number] 04:37:36 Test Item Value Reference Range Interpretation Comments Glucose (test code = 2345-7) 124 mg/dL 70-110 H Lab Interpretation (test code = Abnormal 35005-9) [facility] CenterGLUCOSE-STAT [id number] 04:37:36 Test Item Value Reference Range Interpretation Comments GLUCOSE RANDOM (BEAKER) (test code 124 mg/dL 70-110 H = 652) HGB/HCT (H&H) - STAT [id number] 04:37:36 Test Item Value Reference Range Interpretation Comments HEMOGLOBIN (BEAKER) (test code = 11.0 GM/DL 13.0-16.8 L 410) HEMATOCRIT (BEAKER) (test code = 32.0 % 40.0-50.0 L 411) Blood gas, [id number] 04:37:08 Test Item Value Reference Range Interpretation Comments pH, Arterial (test code 7.41 7.35-7.45 = 2744-1) pCO2, Arterial (test 40 See_Comment [Autom ated code = 2019-) message] The system which generated this result transmitted reference range : 35 - 45 mm Hg. The reference range was not used to interpret this result as normal/abnormal . pO2, Arterial (test 160 See_Comment H [Automa rylee code = 2703-7) message] The system which generated this result transmitted reference range : 80 - 90 mm Hg. The reference range was not used to interpret this result as normal/abnormal . O2 Sat, Arterial (test 99.1 % 96.0-97.0 H code = 2708-6) HCO3, Arterial (test 24 mmol/L 21-29 code = 1960-4) Base Excess, Arterial -0.4 mmol/L -2.0-3.0 (test code = 1925-7) Patient Temperature 36.6 (test code = 8310-5) FIO2 (test code = 1819) 36 Lab Interpretation Abnormal (test code = 81036-3) [facility] Center[facility], [id number] 04:37:08 Test Item Value Reference Range Interpretation Comments pH, Arterial (test code 7.41 7.35-7.45 = 2744-1) pCO2, Arterial (test 40 See_Comment [Autom ated code = 2019-01) message] The system which generated this result transmitted reference range : 35 - 45 mm Hg. The reference range was not used to interpret this result as normal/abnormal . pO2, Arterial (test 160 See_Comment H [Automa rylee code = 2703-7) message] The system which generated this result transmitted reference range : 80 - 90 mm Hg. The reference range was not used to interpret this result as normal/abnormal . O2 Sat, Arterial (test 99.1 % 96.0-97.0 H code = 2708-6) HCO3, Arterial (test 24 mmol/L 21-29 code = 1960-4) Base Excess, Arterial -0.4 mmol/L -2.0-3.0 (test code = 1925-7) Patient Temperature 36.6 (test code = 8310-5) FIO2 (test code = 1819) 36 Lab Interpretation Abnormal (test code = 82863-8) [facility] Center[facility], [id number] 04:37:08 Test Item Value Reference Range Interpretation Comments pH, Arterial (test code 7.41 7.35-7.45 = 2744-1) pCO2, Arterial (test 40 See_Comment [Autom ated code = 2019-) message] The system which generated this result transmitted reference range : 35 - 45 mm Hg. The reference range was not used to interpret this result as normal/abnormal . pO2, Arterial (test 160 See_Comment H [Automa rylee code = 2703-7) message] The system which generated this result transmitted reference range : 80 - 90 mm Hg. The reference range was not used to interpret this result as normal/abnormal . O2 Sat, Arterial (test 99.1 % 96.0-97.0 H code = 2708-6) HCO3, Arterial (test 24 mmol/L 21-29 code = 1960-4) Base Excess, Arterial -0.4 mmol/L -2.0-3.0 (test code = 1925-7) Patient Temperature 36.6 (test code = 8310-5) FIO2 (test code = 1819) 36 Lab Interpretation Abnormal (test code = 47852-8) [facility] gas, [id number] 04:37:08 Test Item Value Reference Range Interpretation Comments pH, Arterial (test code 7.41 7.35-7.45 = 2744-1) pCO2, Arterial (test 40 See_Comment [Autom ated code = 2019-01) message] The system which generated this result transmitted reference range : 35 - 45 mm Hg. The reference range was not used to interpret this result as normal/abnormal . pO2, Arterial (test 160 See_Comment H [Automa rylee code = 2703-7) message] The system which generated this result transmitted reference range : 80 - 90 mm Hg. The reference range was not used to interpret this result as normal/abnormal . O2 Sat, Arterial (test 99.1 % 96.0-97.0 H code = 2708-6) HCO3, Arterial (test 24 mmol/L 21-29 code = 1960-4) Base Excess, Arterial -0.4 mmol/L -2.0-3.0 (test code = 1925-7) Patient Temperature 36.6 (test code = 8310-5) FIO2 (test code = 1819) 36 Lab Interpretation Abnormal (test code = 73663-7) [facility], [id number] 04:37:08 Test Item Value Reference Range Interpretation Comments pH, Arterial (test code 7.41 7.35-7.45 = 2744-1) pCO2, Arterial (test 40 See_Comment [Autom ated code = 2018-) message] The system which generated this result transmitted reference range : 35 - 45 mm Hg. The reference range was not used to interpret this result as normal/abnormal . pO2, Arterial (test 160 See_Comment H [Automa rylee code = 2703-7) message] The system which generated this result transmitted reference range : 80 - 90 mm Hg. The reference range was not used to interpret this result as normal/abnormal . O2 Sat, Arterial (test 99.1 % 96.0-97.0 H code = 2708-6) HCO3, Arterial (test 24 mmol/L 21-29 code = 1960-4) Base Excess, Arterial -0.4 mmol/L -2.0-3.0 (test code = 1925-7) Patient Temperature 36.6 (test code = 8310-5) FIO2 (test code = 1819) 36 Lab Interpretation Abnormal (test code = 99301-3) [facility], [id number] 04:37:08 Test Item Value Reference Range Interpretation Comments PH ARTERIAL (BEAKER) (test code = 7.41 7.35-7.45 383) PCO2 ARTERIAL (BEAKER) (test code 40 mm Hg 35-45 = 384) PO2 ARTERIAL (BEAKER) (test code 160 mm Hg 80-90 H = 385) O2 SATURATION ARTERIAL (BEAKER) 99.1 % 96.0-97.0 H (test code = 386) HCO3 ARTERIAL (BEAKER) (test code 24 mmol/L 21-29 = 388) BASE EXCESS ARTERIAL (BEAKER) -0.4 mmol/L -2.0-3.0 (test code = 387) PATIENT TEMPERATURE (BEAKER) 36.6 (test code = 1818) FIO2 (BEAKER) (test code = 1819) 36.0 Potassium-Stat [id number] 04:35:48 Test Item Value Reference Range Interpretation Comments Potassium (test code = 2823-3) 4.0 meq/L 3.6-5.5 Lab Interpretation (test code = Normal 48852-1) [facility]assium[facility]Stat [id number] 04:35:48 Test Item Value Reference Range Interpretation Comments Potassium (test code = 2823-3) 4.0 meq/L 3.6-5.5 Lab Interpretation (test code = Normal 42682-6) [facility] CenterPotassium-Stat [id number] 04:35:48 Test Item Value Reference Range Interpretation Comments Potassium (test code = 2823-3) 4.0 meq/L 3.6-5.5 Lab Interpretation (test code = Normal 00990-3) [facility] CenterPotassium-Stat [id number] 04:35:48 Test Item Value Reference Range Interpretation Comments Potassium (test code = 2823-3) 4.0 meq/L 3.6-5.5 Lab Interpretation (test code = Normal 75557-2) [facility] CenterPotassium-Stat [id number] 04:35:48 Test Item Value Reference Range Interpretation Comments Potassium (test code = 2823-3) 4.0 meq/L 3.6-5.5 Lab Interpretation (test code = Normal 73471-8) [facility] CenterPOTASSIUM-STAT [id number] 04:35:48 Test Item Value Reference Range Interpretation Comments POTASSIUM (BEAKER) (test code = 4.0 meq/L 3.6-5.5 379) Sodium Na-Stat [id number] 04:35:47 Test Item Value Reference Range Interpretation Comments Sodium (test code = 2951-2) 136 meq/L 136-145 Lab Interpretation (test code = Normal 44726-4) [facility] [id number] 04:35:47 Test Item Value Reference Range Interpretation Comments Sodium (test code = 2951-2) 136 meq/L 136-145 Lab Interpretation (test code = Normal 11158-1) [facility]Stat [id number] 04:35:47 Test Item Value Reference Range Interpretation Comments Sodium (test code = 2951-2) 136 meq/L 136-145 Lab Interpretation (test code = Normal 85741-2) [facility]Stat [id number] 04:35:47 Test Item Value Reference Range Interpretation Comments Sodium (test code = 2951-2) 136 meq/L 136-145 Lab Interpretation (test code = Normal 42431-5) [facility]Stat [id number] 04:35:47 Test Item Value Reference Range Interpretation Comments Sodium (test code = 2951-2) 136 meq/L 136-145 Lab Interpretation (test code = Normal 86538-2) [facility] CenterOD[facility] NA-STAT [id number] 04:35:47 Test Item Value Reference Range Interpretation Comments SODIUM (BEAKER) (test code = 381) 136 meq/L 136-145 PROTHROMBIN TIME/[id number] 04:34:52 Test Item Value Reference Range Interpretation Comments PROTIME (BEAKER) 13.7 seconds 11.9-14.2 (test code = 759) INR (BEAKER) (test 1.06 See_Comment [Automat ed message] code = 370) The system [employer] generated this result transmitted ref erence range: <=5.90. The reference range was not used to int erpret this result as normal/abnormal . RECOMMENDED COUMADIN/WARFARIN INR THERAPY RANGESSTANDARD DOSE: 2.0 - 3.0 Includes: PROPHYLAXIS for venous thrombosis, systemic embolization; TREATMENT for venous thrombosis and/or pulmonary embolus.HIGH RISK: Target INR is 2.5-3.5 for patients with mechanical heart valves.CALCIUM, [id number] 04:34:08 Test Item Value Reference Range Interpretation Comments CALCIUM IONIZED (BEAKER) (test 1.18 mmol/L 1.12-1.27 code = 698) PH, BLOOD (BEAKER) (test code = 7.40 1810) CBC (HEMOGRAM ONLY)2021-12-26 04:32:51 Test Item Value Reference Range Interpretation Comments WHITE BLOOD CELL COUNT (BEAKER) 7.9 K/ L 3.5-10.5 (test code = 775) RED BLOOD CELL COUNT (BEAKER) 3.60 M/ L 4.63-6.08 L (test code = 761) HEMOGLOBIN (BEAKER) (test code = 10.4 GM/DL 13.7-17.5 L 410) HEMATOCRIT (BEAKER) (test code = 30.5 % 40.1-51.0 L 411) MEAN CORPUSCULAR VOLUME (BEAKER) 84.7 fL 79.0-92.2 (test code = 753) MEAN CORPUSCULAR HEMOGLOBIN 28.9 pg 25.7-32.2 (BEAKER) (test code = 751) MEAN CORPUSCULAR HEMOGLOBIN CONC 34.1 GM/DL 32.3-36.5 (BEAKER) (test code = 752) RED CELL DISTRIBUTION WIDTH 12.1 % 11.6-14.4 (BEAKER) (test code = 412) PLATELET COUNT (BEAKER) (test 145 K/CU MM 150-450 L code = 756) MEAN PLATELET VOLUME (BEAKER) 10.1 fL 9.4-12.4 (test code = 754) NUCLEATED RED BLOOD CELLS 0 /100 WBC 0-0 (BEAKER) (test code = 413) [id number] 04:31:08 Test Item Value Reference Range Interpretation Comments PARTIAL THROMBOPLASTIN TIME 38.9 seconds 22.5-36.0 H (BEAKER) (test code = 760) [id number] 04:30:29 Test Item Value Reference Range Interpretation Comments FIBRINOGEN LEVEL (BEAKER) (test 446 mg/dl 225-434 H code = 658) Lactic Acid, [id number] 04:22:26 Test Item Value Reference Range Interpretation Comments Lactate, Art (test code = 0.8 mmol/L 0.5-2.2 2874) DAMIAN (test code = DAMIAN) Injection Molding Machine Offbearer ID - REED W Lab Interpretation (test Normal code = 73945-6) [facility] [id number] 04:22:26 Test Item Value Reference Range Interpretation Comments Lactate, Art (test code = 0.8 mmol/L 0.5-2.2 2874) DAMIAN (test code = DAMIAN) Injection Molding Machine Offbearer ID - REED W Lab Interpretation (test Normal code = 99211-8) [facility], [id number] 04:22:26 Test Item Value Reference Range Interpretation Comments Lactate, Art (test code = 0.8 mmol/L 0.5-2.2 2874) DAMIAN (test code = DAMIAN) Injection Molding Machine Offbearer ID - REED W Lab Interpretation (test Normal code = 96032-7) [facility], [id number] 04:22:26 Test Item Value Reference Range Interpretation Comments Lactate, Art (test code = 0.8 mmol/L 0.5-2.2 2874) DAMIAN (test code = DAMIAN) Injection Molding Machine Offbearer ID - REED W Lab Interpretation (test Normal code = 93612-8) [facility], [id number] 04:22:26 Test Item Value Reference Range Interpretation Comments Lactate, Art (test code = 0.8 mmol/L 0.5-2.2 2874) DAMIAN (test code = DAMIAN) Injection Molding Machine Offbearer ID - REED W Lab Interpretation (test Normal code = 18883-9) [facility] Center[facility], [id number] 04:22:26 Test Item Value Reference Range Interpretation Comments LACTATE BLOOD ARTERIAL (2) 0.8 mmol/L 0.5-2.2 (BEAKER) (test code = 2874) Injection Molding Machine Offbearer ID - REED WPOCT-GLUCOSE [id number] 04:17:16 Test Item Value Reference Range Interpretation Comments POC-GLUCOSE METER 124 mg/dL 70-110 H : TESTED A T [facility] 6720 (BEAKER) (test code = [place]UAN [place], 1538) [address]: 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 ID = [id number] for Wa lucila -KELLY, RIN A GLUCOSE-STAT [id number] 01:21:45 Test Item Value Reference Range Interpretation Comments GLUCOSE RANDOM (BEAKER) (test code 146 mg/dL 70-110 H = 652) HGB/HCT (H&H) - STAT [id number] 01:21:45 Test Item Value Reference Range Interpretation Comments HEMOGLOBIN (BEAKER) (test code = 10.8 GM/DL 13.0-16.8 L 410) HEMATOCRIT (BEAKER) (test code = 32.0 % 40.0-50.0 L 411) BLOOD GAS, [id number] 01:21:44 Test Item Value Reference Range Interpretation Comments PH ARTERIAL (BEAKER) (test code = 7.43 7.35-7.45 383) PCO2 ARTERIAL (BEAKER) (test code 37 mm Hg 35-45 = 384) PO2 ARTERIAL (BEAKER) (test code 121 mm Hg 80-90 H = 385) O2 SATURATION ARTERIAL (BEAKER) 98.5 % 96.0-97.0 H (test code = 386) HCO3 ARTERIAL (BEAKER) (test code 24 mmol/L 21-29 = 388) BASE EXCESS ARTERIAL (BEAKER) -0.2 mmol/L -2.0-3.0 (test code = 387) PATIENT TEMPERATURE (BEAKER) 36.6 (test code = 1818) FIO2 (BEAKER) (test code = 1819) 36.1 SODIUM NA-STAT [id number] 01:21:28 Test Item Value Reference Range Interpretation Comments SODIUM (BEAKER) (test code = 381) 139 meq/L 136-145 POTASSIUM-STAT [id number] 01:21:28 Test Item Value Reference Range Interpretation Comments POTASSIUM (BEAKER) (test code = 3.7 meq/L 3.6-5.5 379) GLUCOSE-STAT [id number] 23:44:55 Test Item Value Reference Range Interpretation Comments GLUCOSE RANDOM (BEAKER) (test code 159 mg/dL 70-110 H = 652) HGB/HCT (H&H) - STAT [id number] 23:44:55 Test Item Value Reference Range Interpretation Comments HEMOGLOBIN (BEAKER) (test code = 11.4 GM/DL 13.0-16.8 L 410) HEMATOCRIT (BEAKER) (test code = 34.0 % 40.0-50.0 L 411) BLOOD GAS, [id number] 23:44:54 Test Item Value Reference Range Interpretation Comments PH ARTERIAL (BEAKER) (test code = 7.42 7.35-7.45 383) PCO2 ARTERIAL (BEAKER) (test code 35 mm Hg 35-45 = 384) PO2 ARTERIAL (BEAKER) (test code 144 mm Hg 80-90 H = 385) O2 SATURATION ARTERIAL (BEAKER) 99.0 % 96.0-97.0 H (test code = 386) HCO3 ARTERIAL (BEAKER) (test code 23 mmol/L 21-29 = 388) BASE EXCESS ARTERIAL (BEAKER) -1.8 mmol/L -2.0-3.0 (test code = 387) PATIENT TEMPERATURE (BEAKER) 35.8 (test code = 1818) FIO2 (BEAKER) (test code = 1819) 60.0 SODIUM NA-STAT [id number] 23:43:32 Test Item Value Reference Range Interpretation Comments SODIUM (BEAKER) (test code = 381) 139 meq/L 136-145 POTASSIUM-STAT [id number] 23:43:32 Test Item Value Reference Range Interpretation Comments POTASSIUM (BEAKER) (test code = 3.6 meq/L 3.6-5.5 379) [id number] 22:35:02 Test Item Value Reference Range Interpretation Comments POTASSIUM (BEAKER) (test code = 3.9 meq/L 3.5-5.1 379) Injection Molding Machine Offbearer ID - [id number] 22:35:02 Test Item Value Reference Range Interpretation Comments GLUCOSE RANDOM (BEAKER) (test code 168 mg/dL 70-105 H = 652) Injection Molding Machine Offbearer ID - DBHGB/HCT (H&H) - STAT [id number] 22:18:10 Test Item Value Reference Range Interpretation Comments HEMOGLOBIN (BEAKER) (test code = 11.0 GM/DL 13.0-16.8 L 410) HEMATOCRIT (BEAKER) (test code = 32.0 % 40.0-50.0 L 411) GLUCOSE-STAT [id number] 22:18:04 Test Item Value Reference Range Interpretation Comments GLUCOSE RANDOM (BEAKER) (test code 166 mg/dL 70-110 H = 652) BLOOD GAS, [id number] 22:18:03 Test Item Value Reference Range Interpretation Comments PH ARTERIAL (BEAKER) (test code = 7.38 7.35-7.45 383) PCO2 ARTERIAL (BEAKER) (test code 39 mm Hg 35-45 = 384) PO2 ARTERIAL (BEAKER) (test code 128 mm Hg 80-90 H = 385) O2 SATURATION ARTERIAL (BEAKER) 98.6 % 96.0-97.0 H (test code = 386) HCO3 ARTERIAL (BEAKER) (test code 23 mmol/L 21-29 = 388) BASE EXCESS ARTERIAL (BEAKER) -2.5 mmol/L -2.0-3.0 L (test code = 387) PATIENT TEMPERATURE (BEAKER) 36.4 (test code = 1818) FIO2 (BEAKER) (test code = 1819) 60.0 POTASSIUM-STAT [id number] 22:17:58 Test Item Value Reference Range Interpretation Comments POTASSIUM (BEAKER) (test code = 3.8 meq/L 3.6-5.5 379) SODIUM NA-STAT [id number] 22:17:57 Test Item Value Reference Range Interpretation Comments SODIUM (BEAKER) (test code = 381) 139 meq/L 136-145 [id number] 19:58:49 Test Item Value Reference Range Interpretation Comments PHOSPHORUS (BEAKER) (test code = 2.8 mg/dL 2.3-4.7 604) Injection Molding Machine Offbearer ID - BSHEPATIC FUNCTION [id number] 19:58:49 Test Item Value Reference Range Interpretation Comments TOTAL PROTEIN (BEAKER) (test code = 6.6 gm/dL 6.0-8.3 770) ALBUMIN (BEAKER) (test code = 1145) 4.2 g/dL 3.5-5.0 BILIRUBIN TOTAL (BEAKER) (test code 1.4 mg/dL 0.2-1.2 H = 377) BILIRUBIN DIRECT (BEAKER) (test 0.6 mg/dL 0.1-0.5 H code = 706) ALKALINE PHOSPHATASE (BEAKER) (test 82 U/L 40-150 code = 346) AST (SGOT) (BEAKER) (test code = 17 U/L 5-34 353) ALT (SGPT) (BEAKER) (test code = 17 U/L 6-55 347) Injection Molding Machine Offbearer ID - BSCOMPREHENSIVE METABOLIC [id number] 19:58:48 Test Item Value Reference Range Interpretation Comments TOTAL PROTEIN 6.6 gm/dL 6.0-8.3 (BEAKER) (test code = 770) ALBUMIN (BEAKER) 4.2 g/dL 3.5-5.0 (test code = 1145) ALKALINE PHOSPHATASE 82 U/L 40-150 (BEAKER) (test code = 346) BILIRUBIN TOTAL 1.4 mg/dL 0.2-1.2 H (BEAKER) (test code = 377) SODIUM (BEAKER) (test 140 meq/L 136-145 code = 381) POTASSIUM (BEAKER) 4.6 meq/L 3.5-5.1 (test code = 379) CHLORIDE (BEAKER) 110 meq/L 98-107 H (test code = 382) CO2 (BEAKER) (test 25 meq/L 22-29 code = 355) BLOOD UREA NITROGEN 13 mg/dL 7-21 (BEAKER) (test code = 354) CREATININE (BEAKER) 0.79 mg/dL 0.57-1.25 (test code = 358) GLUCOSE RANDOM 199 mg/dL 70-105 H (BEAKER) (test code = 652) CALCIUM (BEAKER) 10.0 mg/dL 8.4-10.2 (test code = 697) AST (SGOT) (BEAKER) 17 U/L 5-34 (test code = 353) ALT (SGPT) (BEAKER) 17 U/L 6-55 (test code = 347) EGFR (BEAKER) (test 98 mL/min/1.73 ESTIMA RYLEE GFR IS code = 1092) sq m NOT ACCURATE CREATININE CLEARANCE IN PREDICTING GLOMERULAR FILTRATION RATE . ESTIMATED GFR I S NOT APPLICABLE FOR DIALYSIS PATIEN TS. Injection Molding Machine Offbearer ID - [id number] 19:58:48 Test Item Value Reference Range Interpretation Comments MAGNESIUM (BEAKER) (test code = 1.6 mg/dL 1.6-2.6 627) Injection Molding Machine Offbearer ID - [id number] 19:55:28 Test Item Value Reference Range Interpretation Comments PARTIAL THROMBOPLASTIN TIME 42.8 seconds 22.5-36.0 H (BEAKER) (test code = 760) PROTHROMBIN [id number] 19:54:49 Test Item Value Reference Range Interpretation Comments PROTIME (BEAKER) 15.0 seconds 11.9-14.2 H (test code = 759) INR (BEAKER) (test 1.20 See_Comment [Automat ed message] code = 370) The system [employer] generated this result transmitted ref erence range: <=5.90. The reference range was not used to int erpret this result as normal/abnormal . RECOMMENDED COUMADIN/WARFARIN INR THERAPY RANGESSTANDARD DOSE: 2.0 - 3.0 Includes: PROPHYLAXIS for venous thrombosis, systemic embolization; TREATMENT for venous thrombosis and/or pulmonary embolus.HIGH RISK: Target INR is 2.5-3.5 for patients with mechanical heart valves.LACTIC ACID, [id number] 19:52:06 Test Item Value Reference Range Interpretation Comments LACTATE BLOOD ARTERIAL (2) 0.8 mmol/L 0.5-2.2 (BEAKER) (test code = 2874) Injection Molding Machine Offbearer ID - BSCBC W/PLT COUNT & AUTO [id number] 19:46:47 Test Item Value Reference Range Interpretation Comments WHITE BLOOD CELL COUNT (BEAKER) 7.0 K/ L 3.5-10.5 (test code = 775) RED BLOOD CELL COUNT (BEAKER) 3.22 M/ L 4.63-6.08 L (test code = 761) HEMOGLOBIN (BEAKER) (test code = 9.4 GM/DL 13.7-17.5 L 410) HEMATOCRIT (BEAKER) (test code = 27.3 % 40.1-51.0 L 411) MEAN CORPUSCULAR VOLUME (BEAKER) 84.8 fL 79.0-92.2 (test code = 753) MEAN CORPUSCULAR HEMOGLOBIN 29.2 pg 25.7-32.2 (BEAKER) (test code = 751) MEAN CORPUSCULAR HEMOGLOBIN CONC 34.4 GM/DL 32.3-36.5 (BEAKER) (test code = 752) RED CELL DISTRIBUTION WIDTH 12.3 % 11.6-14.4 (BEAKER) (test code = 412) PLATELET COUNT (BEAKER) (test 120 K/CU MM 150-450 L code = 756) MEAN PLATELET VOLUME (BEAKER) 10.4 fL 9.4-12.4 (test code = 754) NUCLEATED RED BLOOD CELLS 0 /100 WBC 0-0 (BEAKER) (test code = 413) NEUTROPHILS RELATIVE PERCENT 77 % (BEAKER) (test code = 429) LYMPHOCYTES RELATIVE PERCENT 10 % (BEAKER) (test code = 430) MONOCYTES RELATIVE PERCENT 8 % (BEAKER) (test code = 431) EOSINOPHILS RELATIVE PERCENT 4 % (BEAKER) (test code = 432) BASOPHILS RELATIVE PERCENT 0 % (BEAKER) (test code = 437) NEUTROPHILS ABSOLUTE COUNT 5.40 K/ L 1.78-5.38 H (BEAKER) (test code = 670) LYMPHOCYTES ABSOLUTE COUNT 0.73 K/ L 1.32-3.57 L (BEAKER) (test code = 414) MONOCYTES ABSOLUTE COUNT (BEAKER) 0.54 K/ L 0.30-0.82 (test code = 415) EOSINOPHILS ABSOLUTE COUNT 0.30 K/ L 0.04-0.54 (BEAKER) (test code = 416) BASOPHILS ABSOLUTE COUNT (BEAKER) 0.01 K/ L 0.01-0.08 (test code = 417) IMMATURE GRANULOCYTES-RELATIVE 0 % 0-1 PERCENT (BEAKER) (test code = 2801) POCT-GLUCOSE [id number] 19:42:07 Test Item Value Reference Range Interpretation Comments POC-GLUCOSE METER 197 mg/dL 70-110 H : TESTED A T [facility] 6720 (BEAKER) (test code = [place], 1538) [address]: 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 ID = [id number] for Sn salazar (contract), Mar y Jenni RAD, CHEST, 1 VIEW, NON [id number] 19:39:00Reason for exam:->postop cabgShould this be performed at the bedside?->Yes [facility] 1955 Sex: MFINAL REPORT EXAM: Chest one view COMPARISON: September 29, 2021 CLINICAL HISTORY: Postop FINDINGS: The endotracheal tube overlies the trachea with its tip approximately 4 cm above the ana. The tip of the right internal jugular central venous catheter overlies the cavoatrial junction. The tip of the nasogastric tube is below the diaphragm and not visualized. A left-sided chest tube is also noted. Mild air lucency is noted around the aortic knob, this may represent pneumomediastinumassociated with recent surgery. The cardiac size is mildly prominent. There is mild pulmonary edema.The regional osseous structures are unremarkable. Signed: Jordan Nguyen MDReport Verified Date/Time: 12/25/2021 19:39:35 BLOOD GAS, [id number] 19:27:07 Test Item Value Reference Range Interpretation Comments PH ARTERIAL (BEAKER) (test code = 7.44 7.35-7.45 383) PCO2 ARTERIAL (BEAKER) (test code 35 mm Hg 35-45 = 384) PO2 ARTERIAL (BEAKER) (test code 102 mm Hg 80-90 H = 385) O2 SATURATION ARTERIAL (BEAKER) 97.9 % 96.0-97.0 H (test code = 386) HCO3 ARTERIAL (BEAKER) (test code 23 mmol/L 21-29 = 388) BASE EXCESS ARTERIAL (BEAKER) -0.9 mmol/L -2.0-3.0 (test code = 387) PATIENT TEMPERATURE (BEAKER) 36.8 (test code = 1818) FIO2 (BEAKER) (test code = 1819) 60.0 OXYGEN SATURATION, [id number] 19:26:41 Test Item Value Reference Range Interpretation Comments O2 SATURATION (MEASURED) (BEAKER) 79.7 % (test code = 1455) CALCIUM, [id number] 19:26:26 Test Item Value Reference Range Interpretation Comments CALCIUM IONIZED (BEAKER) (test 1.24 mmol/L 1.12-1.27 code = 698) PH, BLOOD (BEAKER) (test code = 7.43 1810) Prepare [id number] 19:09:00 Test Item Value Reference Range Interpretation Comments CROSSMATCH (test code = COMPATIBLE 2263) Unit ABO (test code = O Pos 3289654) UNIT NUMBER (test code = [id number] 934-0) Status (test code = RETURNED FROM ISSUE 7671667) Blood Bank Product (test RED BLOOD CELLS code = 2263) PRODUCT CODE (test code = W8391S17 933-2) [facility] [id number] 19:09:00 Test Item Value Reference Range Interpretation Comments CROSSMATCH (test code = COMPATIBLE 2264) Unit ABO (test code = O Pos 9968662) UNIT NUMBER (test code = [id number] 934-0) Status (test code = RETURNED FROM ISSUE 15100812) Blood Bank Product (test RED BLOOD CELLS code = 2263) PRODUCT CODE (test code = H2782S28 933-2) [facility] [id number] 19:09:00 Test Item Value Reference Range Interpretation Comments CROSSMATCH (test code = COMPATIBLE 2264) Unit ABO (test code = O Pos 7643653) UNIT NUMBER (test code = [id number] 934-0) Status (test code = RETURNED FROM ISSUE 15100812) Blood Bank Product (test RED BLOOD CELLS code = 2263) PRODUCT CODE (test code = B4425W07 933-2) [facility] [id number] 19:09:00 Test Item Value Reference Range Interpretation Comments CROSSMATCH (test code = COMPATIBLE 4) Unit ABO (test code = O Pos 3205739) UNIT NUMBER (test code = [id number] 934-0) Status (test code = RETURNED FROM ISSUE 15100812) Blood Bank Product (test RED BLOOD CELLS code = 2263) PRODUCT CODE (test code = F0757R07 933-2) [id number] 19:09:00 Test Item Value Reference Range Interpretation Comments CROSSMATCH (test code = COMPATIBLE 4) Unit ABO (test code = O Pos 2914115) UNIT NUMBER (test code = [id number] 934-0) Status (test code = RETURNED FROM ISSUE 15100812) Blood Bank Product (test RED BLOOD CELLS code = 2263) PRODUCT CODE (test code = B3797N96 933-2) [facility] ACTIVATED CLOTTING [id number] 18:43:35 Test Item Value Reference Range Interpretation Comments Activated Clotting Time 138 sec : 74 -137 seconds, (test code = 3184-9) Baselin e: TESTED AT [facility] [address] [place] [address], [facility] 30: 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 ID = [id number] for CAST RO, ALEKSANDRA [id number] 18:43:35 Test Item Value Reference Range Interpretation Comments ACTIVATED CLOTTING TIME 138 sec : 74 -137 seconds, (BEAKER) (test code = Baseli ne: TESTED AT 441) [address], [facility] 30: 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 ID = [id number] for CA STRO, ALEKSANDRA [id number] 18:43:35 Test Item Value Reference Range Interpretation Comments ACTIVATED CLOTTING TIME 155 sec : 74 -137 seconds, (BEAKER) (test code = Baseli ne: TESTED AT 441) [address], [facility] 30: 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 ID = [id number] for CA STRO, ALEKSANDRA [id number] 18:43:34 Test Item Value Reference Range Interpretation Comments ACTIVATED CLOTTING TIME 300 sec : 74 -137 seconds, (BEAKER) (test code = Baseli ne: TESTED AT 441) [address], [facility] 30: 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 ID = [id number] for CA STRO, ALEKSANDRA [id number] 18:43:34 Test Item Value Reference Range Interpretation Comments ACTIVATED CLOTTING TIME 323 sec : 74 -137 seconds, (BEAKER) (test code = Baseli ne: TESTED AT 441) [address], [facility] 30: 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 ID = [id number] for CA STRO, ALEKSANDRA BLOOD GAS, [id number] 18:06:04 Test Item Value Reference Range Interpretation Comments PH ARTERIAL (BEAKER) (test code = 7.37 7.35-7.45 383) PCO2 ARTERIAL (BEAKER) (test code 41 mm Hg 35-45 = 384) PO2 ARTERIAL (BEAKER) (test code 298 mm Hg 80-90 H = 385) O2 SATURATION ARTERIAL (BEAKER) 99.7 % 96.0-97.0 H (test code = 386) HCO3 ARTERIAL (BEAKER) (test code 24 mmol/L 21-29 = 388) BASE EXCESS ARTERIAL (BEAKER) -1.8 mmol/L -2.0-3.0 (test code = 387) PATIENT TEMPERATURE (BEAKER) 35.6 (test code = 1818) FIO2 (BEAKER) (test code = 1819) 100.0 GLUCOSE-STAT [id number] 18:06:04 Test Item Value Reference Range Interpretation Comments GLUCOSE RANDOM (BEAKER) (test code 205 mg/dL 70-110 H = 652) HGB/HCT (H&H) - STAT [id number] 18:06:04 Test Item Value Reference Range Interpretation Comments HEMOGLOBIN (BEAKER) (test code = 9.7 GM/DL 13.0-16.8 L 410) HEMATOCRIT (BEAKER) (test code = 29.0 % 40.0-50.0 L 411) CALCIUM, [id number] 18:06:03 Test Item Value Reference Range Interpretation Comments CALCIUM IONIZED (BEAKER) (test 1.07 mmol/L 1.12-1.27 L code = 698) PH, BLOOD (BEAKER) (test code = 7.35 1810) SODIUM NA-STAT [id number] 18:04:11 Test Item Value Reference Range Interpretation Comments SODIUM (BEAKER) (test code = 381) 138 meq/L 136-145 POTASSIUM-STAT [id number] 18:04:11 Test Item Value Reference Range Interpretation Comments POTASSIUM (BEAKER) (test code = 4.3 meq/L 3.6-5.5 379) BLOOD GAS, [id number] 17:14:58 Test Item Value Reference Range Interpretation Comments PH ARTERIAL (BEAKER) (test code = 7.34 7.35-7.45 L 383) PCO2 ARTERIAL (BEAKER) (test code 46 mm Hg 35-45 H = 384) PO2 ARTERIAL (BEAKER) (test code 84 mm Hg 80-90 = 385) O2 SATURATION ARTERIAL (BEAKER) 96.4 % 96.0-97.0 (test code = 386) HCO3 ARTERIAL (BEAKER) (test code 25 mmol/L 21-29 = 388) BASE EXCESS ARTERIAL (BEAKER) -1.8 mmol/L -2.0-3.0 (test code = 387) PATIENT TEMPERATURE (BEAKER) 35.5 (test code = 1818) FIO2 (BEAKER) (test code = 1819) 100.0 GLUCOSE-STAT [id number] 17:14:58 Test Item Value Reference Range Interpretation Comments GLUCOSE RANDOM (BEAKER) (test code 203 mg/dL 70-110 H = 652) HGB/HCT (H&H) - STAT [id number] 17:14:58 Test Item Value Reference Range Interpretation Comments HEMOGLOBIN (BEAKER) (test code = 9.7 GM/DL 13.0-16.8 L 410) HEMATOCRIT (BEAKER) (test code = 29.0 % 40.0-50.0 L 411) CALCIUM, [id number] 17:14:57 Test Item Value Reference Range Interpretation Comments CALCIUM IONIZED (BEAKER) (test 1.09 mmol/L 1.12-1.27 L code = 698) PH, BLOOD (BEAKER) (test code = 7.32 1810) POTASSIUM-STAT [id number] 17:13:39 Test Item Value Reference Range Interpretation Comments POTASSIUM (BEAKER) (test code = 4.1 meq/L 3.6-5.5 379) SODIUM NA-STAT [id number] 17:13:37 Test Item Value Reference Range Interpretation Comments SODIUM (BEAKER) (test code = 381) 138 meq/L 136-145 GLUCOSE-STAT [id number] 15:39:38 Test Item Value Reference Range Interpretation Comments GLUCOSE RANDOM (BEAKER) (test code 161 mg/dL 70-110 H = 652) HGB/HCT (H&H) - STAT [id number] 15:39:38 Test Item Value Reference Range Interpretation Comments HEMOGLOBIN (BEAKER) (test code = 11.2 GM/DL 13.0-16.8 L 410) HEMATOCRIT (BEAKER) (test code = 33.0 % 40.0-50.0 L 411) BLOOD GAS, [id number] 15:39:37 Test Item Value Reference Range Interpretation Comments PH ARTERIAL (BEAKER) (test code = 7.46 7.35-7.45 H 383) PCO2 ARTERIAL (BEAKER) (test code 35 mm Hg 35-45 = 384) PO2 ARTERIAL (BEAKER) (test code = 486 mm Hg 80-90 H 385) O2 SATURATION ARTERIAL (BEAKER) 99.9 % 96.0-97.0 H (test code = 386) HCO3 ARTERIAL (BEAKER) (test code 24 mmol/L 21-29 = 388) BASE EXCESS ARTERIAL (BEAKER) 0.5 mmol/L -2.0-3.0 (test code = 387) PATIENT TEMPERATURE (BEAKER) (test 36.0 code = 1818) FIO2 (BEAKER) (test code = 1819) 100.0 CALCIUM, [id number] 15:38:59 Test Item Value Reference Range Interpretation Comments CALCIUM IONIZED (BEAKER) (test 1.13 mmol/L 1.12-1.27 code = 698) PH, BLOOD (BEAKER) (test code = 7.44 1810) SODIUM NA-STAT [id number] 15:38:53 Test Item Value Reference Range Interpretation Comments SODIUM (BEAKER) (test code = 381) 139 meq/L 136-145 POTASSIUM-STAT [id number] 15:38:53 Test Item Value Reference Range Interpretation Comments POTASSIUM (BEAKER) (test code = 3.6 meq/L 3.6-5.5 379) POCT-GLUCOSE [id number] 12:04:19 Test Item Value Reference Range Interpretation Comments POC-GLUCOSE METER 144 mg/dL 70-110 H : TESTED A T [facility] 6720 (BEAKER) (test code = [facility], 1538) [address]: 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 ID = [id number] for LEELEE GOODMAN POCT-GLUCOSE [id number] 08:12:21 Test Item Value Reference Range Interpretation Comments POC-GLUCOSE METER 154 mg/dL 70-110 H : TESTED A T [facility] 6720 (BEAKER) (test code = [facility], 1538) [address]: 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 ID = [id number] for LEELEE GOODMAN COMPREHENSIVE METABOLIC [id number] 01:46:37 Test Item Value Reference Range Interpretation Comments TOTAL PROTEIN 6.7 gm/dL 6.0-8.3 (BEAKER) (test code = 770) ALBUMIN (BEAKER) 3.8 g/dL 3.5-5.0 (test code = 1145) ALKALINE PHOSPHATASE 96 U/L 40-150 (BEAKER) (test code = 346) BILIRUBIN TOTAL 0.8 mg/dL 0.2-1.2 (BEAKER) (test code = 377) SODIUM (BEAKER) (test 138 meq/L 136-145 code = 381) POTASSIUM (BEAKER) 3.3 meq/L 3.5-5.1 L (test code = 379) CHLORIDE (BEAKER) 105 meq/L 98-107 (test code = 382) CO2 (BEAKER) (test 22 meq/L 22-29 code = 355) BLOOD UREA NITROGEN 12 mg/dL 7-21 (BEAKER) (test code = 354) CREATININE (BEAKER) 0.80 mg/dL 0.57-1.25 (test code = 358) GLUCOSE RANDOM 142 mg/dL 70-105 H (BEAKER) (test code = 652) CALCIUM (BEAKER) 9.1 mg/dL 8.4-10.2 (test code = 697) AST (SGOT) (BEAKER) 14 U/L 5-34 (test code = 353) ALT (SGPT) (BEAKER) 18 U/L 6-55 (test code = 347) EGFR (BEAKER) (test 96 mL/min/1.73 ESTIMA RYLEE GFR IS code = 1092) sq m NOT ACCURATE CREATININE CLEARANCE IN PREDICTING GLOMERULAR FILTRATION RATE . ESTIMATED GFR I S NOT APPLICABLE FOR DIALYSIS PATIEN TS. Injection Molding Machine Offbearer ID - PIAYA LCBC (HEMOGRAM ONLY)2021-12-25 01:00:10 Test Item Value Reference Range Interpretation Comments WHITE BLOOD CELL COUNT (BEAKER) 6.1 K/ L 3.5-10.5 (test code = 775) RED BLOOD CELL COUNT (BEAKER) 3.60 M/ L 4.63-6.08 L (test code = 761) HEMOGLOBIN (BEAKER) (test code = 10.8 GM/DL 13.7-17.5 L 410) HEMATOCRIT (BEAKER) (test code = 30.3 % 40.1-51.0 L 411) MEAN CORPUSCULAR VOLUME (BEAKER) 84.2 fL 79.0-92.2 (test code = 753) MEAN CORPUSCULAR HEMOGLOBIN 30.0 pg 25.7-32.2 (BEAKER) (test code = 751) MEAN CORPUSCULAR HEMOGLOBIN CONC 35.6 GM/DL 32.3-36.5 (BEAKER) (test code = 752) RED CELL DISTRIBUTION WIDTH 12.4 % 11.6-14.4 (BEAKER) (test code = 412) PLATELET COUNT (BEAKER) (test 134 K/CU MM 150-450 L code = 756) MEAN PLATELET VOLUME (BEAKER) 10.2 fL 9.4-12.4 (test code = 754) NUCLEATED RED BLOOD CELLS 0 /100 WBC 0-0 (BEAKER) (test code = 413) POCT-GLUCOSE [id number] 21:49:06 Test Item Value Reference Range Interpretation Comments POC-GLUCOSE METER 144 mg/dL 70-110 H : TESTED A T [facility] 6720 (BEAKER) (test code = [facility], 1538) [id number]: 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 ID = [id number] for Angeline Frankel POCT-GLUCOSE [id number] 17:44:53 Test Item Value Reference Range Interpretation Comments POC-GLUCOSE METER 186 mg/dL 70-110 H : TESTED A T [facility] 6720 (BEAKER) (test code = [facility], 1538) 19979: 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 ID = [id number] for Matthew Carlson POCT-GLUCOSE [id number] 12:41:13 Test Item Value Reference Range Interpretation Comments POC-GLUCOSE METER 156 mg/dL 70-110 H : TESTED A T [facility] 6720 (BEAKER) (test code = [facility], 1538) [id number]: 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 ID = [id number] for Ma Matthew stephenson CT, CTA, [id number] 12:36:00Unlisted Reason for Exam - Click Yes and Enter Reason Below->YesUnlisted Reason for Exam->Evaluate distance of aorta from chest wall, determine calcification of aorta, target vessel assessment ofLAD prior to cardiac [facility] CANNON : 1955 Sex: MFINAL REPORT CTA Aorta - Chest, Abdomen, and Pelvis: 12/22/2021 5:39 AM. Comparison: None available. Clinical History: 66 years old Male with coronary artery disease here for potential robotically assisted CABG. The study is performed to assess vascular access for robotic assistance.Technique: Spiral acquisition before and during intravenous contrast administration using a ([employer] scanner). Images were obtained before and during the dynamic passage of intravenous contrast material. Multi-planar 3-D volume- rendering reconstruction was performed using an independent workstation interactively by the interpreting physician as well as the 3-D specialist for optimal visualization of the thoracoabdominal aorta, the pelvic arteries as well as its proximal branches. Please refer to the contrast sheet scanned in the EPIC system for the amount and route of contrast given. This exam was performed according to our departmental dose-optimisation programme, which includes auto mated exposure control, adjustment of the mA and/or kV according to patient size and/or use of iterative reconstruction technique. Dose modulation, iterative reconstruction, and/or weight based adjustment of the mA/kV was utilized to reduce the radiation dose to as low as reasonably achievable. RESULT: Potential study limitations: None. CHEST:The chest wall is unremarkable. The mediastinum is unremarkable. There are small mediastinal lymph nodes, however there is no significant adenopathy noted in the axillae, mediastinum, and aly. The pericardium appears normal. The pulmonary arteries are normal.Lung windows reveal no acute abnormalities. There is no abnormal pulmonary parenchymal mass, infiltrate, or pleural effusion. The cardiac chambers have normal atrioventricular and ventriculoarterial concordance, and systemic and pulmonary venous return. The cardiac chamber sizes are notable for mild left atrial enlargement. The coronary arteries have normal origins and courses. There are severe coronary calcifications identified. The LAD has severe calcification extending from the proximal to the mid segment of the LAD however the distal segment has no significant calcification and appears to be anideal position for ESCAMILLA graft anastomosis (a dedicated screen shots were saved for optimal placementof ESCAMILLA graft) The washoe ESCAMILLA and ALEJANDRINA graft are widely patent and travels along the lateral borderof the manubrium and lies 1.7 cm lateral to the sternum. VASCULAR WITH ADVANCED 3-D OFF-LINE POSTPROCESSING:The aortic valve is trileaflet and is free from calcifications. The aortic root is mildly ectatic measuring 3.9 cm from sinus to commissure. The sinotubular junction is preserved. The thoracic aorta is is normal in course and caliber with mild calcification involving the sinotubular junction mild to moderate calcification involving the aortic arch and descending thoracic aorta. The arch vessel branching pattern is normal, and the arch branch vessels are all widely patent in their proximal portions. The abdominal aorta is normal in course and caliber with mild to moderate calcification involving the infrarenal segment of the abdominal aorta with a minimal luminal diameter measuring 1.4 x 1.6cm. There is no acute aortic pathology. Bus Driver Supervisor dimensions of the thoracic aorta are as follows: *3.9 cm at the sinuses of Valsalva measured sinus to trigone*3.5 cm at the mid ascending aorta*3.4 cm at the distal ascending aorta*2.4 cm at the mid transverse arch*2.6 cm at the proximal descending thoracic aorta*2.6 cm at the diaphragmatic hiatus The abdominal aorta measures: *2.4 cm at the supra mesenteric segment*2.1 cm at the mesenteric segment*1.8 cm at the renal segment*1.4 x 1.6 cm at the mid infrarenal segment*1.6 cm at the aortic bifurcation The celiac axis, SMA, and DELIA are patent. There are single renal arteries bilaterally that appear patent. The pelvic arteries are tortuous, but otherwise normal in caliber and contour. The common femoral arteries are normal in course and caliber with mild to moderate calcification involving the distal segment of the common femoral arteries. ABDOMEN/PELVIS:The liver, gallbladder, spleen, and pancreas appear unremarkable. The adrenal glands and both kidneys are unremarkable. There is no abnormal mass or hydronephrosis in either kidney. There is no significant retroperitoneal adenopathy. No free fluid or free air within the abdomen or pelvis. Thebowel appears unremarkable on this non-GI contrast examination. The urinary bladder appears normal. There are scattered phleboliths within the deep pelvis. IMPRESSION: 1. The LAD has severe calcification extending from the proximal to the mid segment of the LAD however the distal segment has no significant calcification and appears to be an ideal position for ESCAMILLA graft anastomosis (a dedicated screen shots were saved for optimal placement of ESCAMILLA graft) 2. The washoe ESCAMILLA and ALEJANDRINA graft are widely p atent and travels along the lateral border of the manubrium and lies 1.7 cm lateral to the sternum. 3. The aortic valve is trileaflet and is free from calcifications. The aortic root is mildly ectatic measuring 3.9 cm from sinus to commissure. The sinotubular junction is preserved. 4. The thoracic aorta is is normal in course and caliber with mild calcification involving the sinotubular junction mildto moderate calcification involving the aortic arch and descending thoracic aorta. 5. The abdominal aorta is normal in course and caliber with mild to moderate calcification involving the infrarenal segment of the abdominal aorta with a minimal luminal diameter measuring 1.4 x 1.6 cm. There is no acute aortic pathology. An addendum will be dictated regarding the non-vascular findings as the Ios Architect Radiologist. Signed: Mansi Barrera MDReport Verified Date/Time: 12/24/2021 12:36:14 CT, CTA [id number] 12:36:00Unlisted Reason for Exam - Click Yes and Enter Reason Below->YesUnlisted Reason for Exam->Evaluation of descending aorta to femoral vessels , determine calcification of descending aorta and surgical planning.pre op cardiac surgery [facility] : 1955 Sex: MFINAL REPORT CTA Aorta - Chest, Abdomen, and Pelvis: 12/22/2021 5:39 AM. Comparison: None available. Clinical History: 66 years old Male with coronary artery disease here for potential robotically assisted CABG. The study is performed to assess vascular access for robotic assistance.Technique: Spiral acquisition before and during intravenous contrast administration using a ([employer] scanner). Images were obtained before and during the dynamic passage of intravenous contrast material. Multi-planar 3-D volume- rendering reconstruction was performed using an independent workstation interactively by the interpreting physician as well as the 3-D specialist for optimal visualization of the thoracoabdominal aorta, the pelvic arteries as well as its proximal branches. Please refer to the contrast sheet scanned in the EPIC system for the amount and route of contrast given. This exam was performed according to our departmental dose-optimisation programme, which includes auto mated exposure control, adjustment of the mA and/or kV according to patient size and/or use of iterative reconstruction technique. Dose modulation, iterative reconstruction, and/or weight based adjustment of the mA/kV was utilized to reduce the radiation dose to as low as reasonably achievable. RESULT: Potential study limitations: None. CHEST:The chest wall is unremarkable. The mediastinum is unremarkable. There are small mediastinal lymph nodes, however there is no significant adenopathy noted in the axillae, mediastinum, and aly. The pericardium appears normal. The pulmonary arteries are normal.Lung windows reveal no acute abnormalities. There is no abnormal pulmonary parenchymal mass, infiltrate, or pleural effusion. The cardiac chambers have normal atrioventricular and ventriculoarterial concordance, and systemic and pulmonary venous return. The cardiac chamber sizes are notable for mild left atrial enlargement. The coronary arteries have normal origins and courses. There are severe coronary calcifications identified. The LAD has severe calcification extending from the proximal to the mid segment of the LAD however the distal segment has no significant calcification and appears to be anideal position for ESCAMILLA graft anastomosis (a dedicated screen shots were saved for optimal placementof ESCAMILLA graft) The washoe ESCAMILLA and ALEJANDRINA graft are widely patent and travels along the lateral borderof the manubrium and lies 1.7 cm lateral to the sternum. VASCULAR WITH ADVANCED 3-D OFF-LINE POSTPROCESSING:The aortic valve is trileaflet and is free from calcifications. The aortic root is mildly ectatic measuring 3.9 cm from sinus to commissure. The sinotubular junction is preserved. The thoracic aorta is is normal in course and caliber with mild calcification involving the sinotubular junction mild to moderate calcification involving the aortic arch and descending thoracic aorta. The arch vessel branching pattern is normal, and the arch branch vessels are all widely patent in their proximal portions. The abdominal aorta is normal in course and caliber with mild to moderate calcification involving the infrarenal segment of the abdominal aorta with a minimal luminal diameter measuring 1.4 x 1.6cm. There is no acute aortic pathology. Bus Driver Supervisor dimensions of the thoracic aorta are as follows: *3.9 cm at the sinuses of Valsalva measured sinus to trigone*3.5 cm at the mid ascending aorta*3.4 cm at the distal ascending aorta*2.4 cm at the mid transverse arch*2.6 cm at the proximal descending thoracic aorta*2.6 cm at the diaphragmatic hiatus The abdominal aorta measures: *2.4 cm at the supra mesenteric segment*2.1 cm at the mesenteric segment*1.8 cm at the renal segment*1.4 x 1.6 cm at the mid infrarenal segment*1.6 cm at the aortic bifurcation The celiac axis, SMA, and DELIA are patent. There are single renal arteries bilaterally that appear patent. The pelvic arteries are tortuous, but otherwise normal in caliber and contour. The common femoral arteries are normal in course and caliber with mild to moderate calcification involving the distal segment of the common femoral arteries. ABDOMEN/PELVIS:The liver, gallbladder, spleen, and pancreas appear unremarkable. The adrenal glands and both kidneys are unremarkable. There is no abnormal mass or hydronephrosis in either kidney. There is no significant retroperitoneal adenopathy. No free fluid or free air within the abdomen or pelvis. Thebowel appears unremarkable on this non-GI contrast examination. The urinary bladder appears normal. There are scattered phleboliths within the deep pelvis. IMPRESSION: 1. The LAD has severe calcification extending from the proximal to the mid segment of the LAD however the distal segment has no significant calcification and appears to be an ideal position for ESCAMILLA graft anastomosis (a dedicated screen shots were saved for optimal placement of ESCAMILLA graft) 2. The washoe ESCAMILLA and ALEJANDRINA graft are widely p atent and travels along the lateral border of the manubrium and lies 1.7 cm lateral to the sternum. 3. The aortic valve is trileaflet and is free from calcifications. The aortic root is mildly ectatic measuring 3.9 cm from sinus to commissure. The sinotubular junction is preserved. 4. The thoracic aorta is is normal in course and caliber with mild calcification involving the sinotubular junction mildto moderate calcification involving the aortic arch and descending thoracic aorta. 5. The abdominal aorta is normal in course and caliber with mild to moderate calcification involving the infrarenal segment of the abdominal aorta with a minimal luminal diameter measuring 1.4 x 1.6 cm. There is no acute aortic pathology. An addendum will be dictated regarding the non-vascular findings as the Ios Architect Radiologist. Signed: Mansi Barrera MDReport Verified Date/Time: 12/24/2021 12:36:14 HEMOGLOBIN [id number] 11:33:56 Test Item Value Reference Range Interpretation Comments HEMOGLOBIN A1C 5.7 % See_Comment H [Automated m essage] ELECTROPHORESIS ([employer]) The system which (test code = 3811) generated this result transmitted ref erence range: <=5.6%. The reference range was not used to int erpret this result as normal/abnormal . "The A1c is measured using a NGSP-certified method. HbA1c value equal to or greater than 6.5% as thediagnosis cutoff for diabetes. An HbA1c value of 5.7- 6.4% indicates increased risk for diabetes (prediabetes)."Injection Molding Machine Offbearer ID - ADMPOCT- GLUCOSE [id number] 08:08:27 Test Item Value Reference Range Interpretation Comments POC-GLUCOSE METER 129 mg/dL 70-110 H : TESTED A T [facility] 6720 (BEAKER) (test code = [facility] Ferguson [facility], 1538) [id number]: 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 ID = [id number] for Matthew Carlson BASIC METABOLIC [id number] 04:25:34 Test Item Value Reference Range Interpretation Comments SODIUM (BEAKER) 139 meq/L 136-145 (test code = 381) POTASSIUM (BEAKER) 3.2 meq/L 3.5-5.1 L (test code = 379) CHLORIDE (BEAKER) 105 meq/L 98-107 (test code = 382) CO2 (BEAKER) (test 24 meq/L 22-29 code = 355) BLOOD UREA NITROGEN 12 mg/dL 7-21 (BEAKER) (test code = 354) CREATININE (BEAKER) 0.75 mg/dL 0.57-1.25 (test code = 358) GLUCOSE RANDOM 131 mg/dL 70-105 H (BEAKER) (test code = 652) CALCIUM (BEAKER) 9.0 mg/dL 8.4-10.2 (test code = 697) EGFR (BEAKER) (test 104 mL/min/1.73 ESTIM ATED GFR IS code = 1092) sq m NOT ACCURATE CREATININE CLEARANCE IN PREDICTING GLOMERULAR FILTRATION RATE . ESTIMATED GFR I S NOT APPLICABLE FOR DIALYSIS PATIEN TS. Injection Molding Machine Offbearer ID - PIREJI LLIPID [id number] 04:25:34 Test Item Value Reference Range Interpretation Comments TRIGLYCERIDES (BEAKER) (test code = 98 mg/dL 540) CHOLESTEROL (BEAKER) (test code = 116 mg/dL 631) HDL CHOLESTEROL (BEAKER) (test code 29 mg/dL = 976) LDL CHOLESTEROL CALCULATED (BEAKER) 67 mg/dL (test code = 633) Triglyceride Reference Range: Low Risk <150 Borderline 150-199 High Risk 200- 499 Very High Risk >=500Cholesterol Reference Range: Low Risk <200 Borderline 200-239 High Risk >240HDL Cholesterol Reference Range: Low Risk >=60 High Risk <40LDL Cholesterol Reference Range: Optimal <100 Near Optimal 100-129 Borderline 130-159 High 160-189 Very High >=190 Injection Molding Machine Offbearer ID - RICHARD LCBC (HEMOGRAM ONLY)2021-12-24 03:47:22 Test Item Value Reference Range Interpretation Comments WHITE BLOOD CELL COUNT (BEAKER) 6.0 K/ L 3.5-10.5 (test code = 775) RED BLOOD CELL COUNT (BEAKER) 3.57 M/ L 4.63-6.08 L (test code = 761) HEMOGLOBIN (BEAKER) (test code = 10.7 GM/DL 13.7-17.5 L 410) HEMATOCRIT (BEAKER) (test code = 30.1 % 40.1-51.0 L 411) MEAN CORPUSCULAR VOLUME (BEAKER) 84.3 fL 79.0-92.2 (test code = 753) MEAN CORPUSCULAR HEMOGLOBIN 30.0 pg 25.7-32.2 (BEAKER) (test code = 751) MEAN CORPUSCULAR HEMOGLOBIN CONC 35.5 GM/DL 32.3-36.5 (BEAKER) (test code = 752) RED CELL DISTRIBUTION WIDTH 12.3 % 11.6-14.4 (BEAKER) (test code = 412) PLATELET COUNT (BEAKER) (test 143 K/CU MM 150-450 L code = 756) MEAN PLATELET VOLUME (BEAKER) 10.3 fL 9.4-12.4 (test code = 754) NUCLEATED RED BLOOD CELLS 0 /100 WBC 0-0 (BEAKER) (test code = 413) POCT-GLUCOSE [id number] 21:47:28 Test Item Value Reference Range Interpretation Comments POC-GLUCOSE METER 211 mg/dL 70-110 H : [facility] ([facility]ER[facility] (test code = [facility], 1538) [id number]: 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 ID = [id number] for Pa viviane Felimari POCT-GLUCOSE [id number] 17:32:38 Test Item Value Reference Range Interpretation Comments POC-GLUCOSE METER 187 mg/dL 70-110 H : [facility] ([facility]ER[facility] (test code = [facility], 1538) [id number]: 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 ID = [id number] for Matthew Carlson SARS-COV2/RT-PCR ([facility])2021-12-23 16:51:32 Test Item Value Reference Range Interpretation Comments SARS-COV2/RT-PCR (test Negative Not Detected, Negative, code = 7910991) See external report for linked test SARS-COV-2 PERFORMING LAB [facility] NATTY (test code = 5918947) Negative result for this test determines that SARS-CoV-2 RNA was not present in the specimen above the Limit of Detection (LOD). However, Negative results do not preclude SARS-CoV-2 infection and should not be used as the sole basis for treatment or patient management decisions. Negative results must be combined with clinical observations, patient history, and epidemiological information. A false negative result may occur if a specimen is improperly collected, transported or handled. A false negative result should be considered if patient's recent exposures or clinical presentation indicate that COVID-19 (SARS-CoV-2) is likely and diagnostic tests for other causes of illness are negative. Re-testing should be considered in cases of suspected false negatives.The limit of detection for this assay is 800 copies/mL.This SARS CoV-2 test is a real-time RT-PCR test intended for the qualitative detection of nucleic acid from SARS-CoV-2 in a nasopharyngeal swab specimen collected from individuals suspected of COVID-19 by their healthcare provider.This test has not been Food and Drug Administration (FDA) cleared or approved. This is a modified version of an approved Emergency Use Authorization (EUA) and is in the process of review by the FDA. Once authorized by the FDA, the issued EUA will be effective until the declaration that circumstances exist justifying the authorization of the emergency use ofin vitro diagnostic tests for detection and/or diagnosis of COVID-19 is terminated under Section 564(b)(2) of the Act or the EUA is revoked under Section 564(g) of the Act.Fact Sheet for Healthcare Prov iders:https://www.[employer]/sites/default/files/product/documents/Fact_Sheet_HC _Ehjljgnfa_Qhhd_SAHH-OfB-7.pdfFact Sheet for Healthcare Patients:https://www.[employer]/sites/default/files/product/docume nts/Kmaj_Dptkb_Xlmesafh_Tamc_HHRU-ZuD-9.pdfPerforming Laboratory:[facility], [place] [address]DKJX-NOYXYLH METER 2021-12-23 12:30:58 Test Item Value Reference Range Interpretation Comments POC-GLUCOSE METER 204 mg/dL 70-110 H : [facility]ED [facility] T [facility] 6720 ([employer]) (test code = [facility], 1538) [id number]: 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 ID = [id number] for Ma o Matthew POCT-GLUCOSE [id number] 07:59:26 Test Item Value Reference Range Interpretation Comments POC-GLUCOSE METER 130 mg/dL 70-110 H : TESTED A T [facility] 6720 ([employer]) (test code = [facility] Marty [facility], 1538) [address]: 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 ID = [id number] for Ma o Matthew BASIC METABOLIC [id number] 04:19:48 Test Item Value Reference Range Interpretation Comments SODIUM (BEAKER) 141 meq/L 136-145 (test code = 381) POTASSIUM (BEAKER) 3.4 meq/L 3.5-5.1 L (test code = 379) CHLORIDE (BEAKER) 106 meq/L 98-107 (test code = 382) CO2 (BEAKER) (test 27 meq/L 22-29 code = 355) BLOOD UREA NITROGEN 13 mg/dL 7-21 (BEAKER) (test code = 354) CREATININE (BEAKER) 0.79 mg/dL 0.57-1.25 (test code = 358) GLUCOSE RANDOM 118 mg/dL 70-105 H (BEAKER) (test code = 652) CALCIUM (BEAKER) 8.9 mg/dL 8.4-10.2 (test code = 697) EGFR (BEAKER) (test 98 mL/min/1.73 ESTIMA RYLEE GFR IS code = 1092) sq m NOT ACCURATE CREATININE CLEARANCE IN PREDICTING GLOMERULAR FILTRATION RATE . ESTIMATED GFR I S NOT APPLICABLE FOR DIALYSIS PATIEN TS. Injection Molding Machine Offbearer ID - LIZBET GCBC (HEMOGRAM ONLY)2021-12-23 03:54:17 Test Item Value Reference Range Interpretation Comments WHITE BLOOD CELL COUNT (BEAKER) 5.4 K/ L 3.5-10.5 (test code = 775) RED BLOOD CELL COUNT (BEAKER) 3.62 M/ L 4.63-6.08 L (test code = 761) HEMOGLOBIN (BEAKER) (test code = 10.6 GM/DL 13.7-17.5 L 410) HEMATOCRIT (BEAKER) (test code = 30.5 % 40.1-51.0 L 411) MEAN CORPUSCULAR VOLUME (BEAKER) 84.3 fL 79.0-92.2 (test code = 753) MEAN CORPUSCULAR HEMOGLOBIN 29.3 pg 25.7-32.2 (BEAKER) (test code = 751) MEAN CORPUSCULAR HEMOGLOBIN CONC 34.8 GM/DL 32.3-36.5 (BEAKER) (test code = 752) RED CELL DISTRIBUTION WIDTH 12.2 % 11.6-14.4 (BEAKER) (test code = 412) PLATELET COUNT (BEAKER) (test 141 K/CU MM 150-450 L code = 756) MEAN PLATELET VOLUME (BEAKER) 10.4 fL 9.4-12.4 (test code = 754) NUCLEATED RED BLOOD CELLS 0 /100 WBC 0-0 ([facility]) (test code = 413) POCT-GLUCOSE [id number] 22:35:18 Test Item Value Reference Range Interpretation Comments POC-GLUCOSE METER 131 mg/dL 70-110 H : TESTED A T [facility] 6720 ([facility]) (test code = [facility], 1538) [address]: 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 ID = [id number] for RO JAMES, EKTA 2D Echo W/Doppler(CW/PW/Color)2021-12-22 13:50:13Ejection FractionSLEH ECHO [facility]Doppler(CW/PW/Color)2021-12-22 13:50:13Ejection FractionSLEH ECHO [facility]LAB [facility] W/Doppler(CW/PW/Color) 2021-12-22 13:50:13Ejection FractionSLEH [facility]CHO [facility]Do[facility](CW/PW/Color)2021-12-22 13:50:13Ejection FractionSLEH ECHO [facility] W/Doppler(CW/PW/Color)2021-12-22 13:50:13Ejection FractionSLEH ECHO [facility]ARTLAB [facility] [id number] 12:15:12 Test Item Value Reference Range Interpretation Comments POC-GLUCOSE METER 204 mg/dL 70-110 H : TESTED A T [facility] 6720 (BEAKER) (test code = [facility], 1538) [id number]: 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 ID = [id number] for LONG NNY, BARBIE POCT-GLUCOSE [id number] 07:32:10 Test Item Value Reference Range Interpretation Comments POC-GLUCOSE METER 121 mg/dL 70-110 H : TESTED A T [facility] 6720 ([employer]) (test code = [facility], 1538) 145[address]: 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 ID = [id number] for LONG NNY, BARBIE BASIC METABOLIC [id number] 04:11:58 Test Item Value Reference Range Interpretation Comments SODIUM (BEAKER) 141 meq/L 136-145 (test code = 381) POTASSIUM (BEAKER) 3.2 meq/L 3.5-5.1 L (test code = 379) CHLORIDE (BEAKER) 107 meq/L 98-107 (test code = 382) CO2 (BEAKER) (test 28 meq/L 22-29 code = 355) BLOOD UREA NITROGEN 14 mg/dL 7-21 (BEAKER) (test code = 354) CREATININE (BEAKER) 0.81 mg/dL 0.57-1.25 (test code = 358) GLUCOSE RANDOM 150 mg/dL 70-105 H (BEAKER) (test code = 652) CALCIUM (BEAKER) 8.7 mg/dL 8.4-10.2 (test code = 697) EGFR (BEAKER) (test 95 mL/min/1.73 ESTIMA RYLEE GFR IS code = 1092) sq m NOT ACCURATE CREATININE CLEARANCE IN PREDICTING GLOMERULAR FILTRATION RATE . ESTIMATED GFR I S NOT APPLICABLE FOR DIALYSIS PATIEN TS. Injection Molding Machine Offbearer ID - REED [id number] 04:11:58 Test Item Value Reference Range Interpretation Comments MAGNESIUM (BEAKER) (test code = 1.5 mg/dL 1.6-2.6 L 627) Injection Molding Machine Offbearer ID Nisreen MCBRIDE WCBC W/PLT COUNT & AUTO [id number] 03:52:33 Test Item Value Reference Range Interpretation Comments WHITE BLOOD CELL COUNT (BEAKER) 6.5 K/ L 3.5-10.5 (test code = 775) RED BLOOD CELL COUNT (BEAKER) 3.57 M/ L 4.63-6.08 L (test code = 761) HEMOGLOBIN (BEAKER) (test code = 10.5 GM/DL 13.7-17.5 L 410) HEMATOCRIT (BEAKER) (test code = 30.7 % 40.1-51.0 L 411) MEAN CORPUSCULAR VOLUME (BEAKER) 86.0 fL 79.0-92.2 (test code = 753) MEAN CORPUSCULAR HEMOGLOBIN 29.4 pg 25.7-32.2 (BEAKER) (test code = 751) MEAN CORPUSCULAR HEMOGLOBIN CONC 34.2 GM/DL 32.3-36.5 (BEAKER) (test code = 752) RED CELL DISTRIBUTION WIDTH 12.2 % 11.6-14.4 (BEAKER) (test code = 412) PLATELET COUNT (BEAKER) (test 158 K/CU MM 150-450 code = 756) MEAN PLATELET VOLUME (BEAKER) 10.0 fL 9.4-12.4 (test code = 754) NUCLEATED RED BLOOD CELLS 0 /100 WBC 0-0 (BEAKER) (test code = 413) NEUTROPHILS RELATIVE PERCENT 57 % (BEAKER) (test code = 429) LYMPHOCYTES RELATIVE PERCENT 25 % (BEAKER) (test code = 430) MONOCYTES RELATIVE PERCENT 10 % (BEAKER) (test code = 431) EOSINOPHILS RELATIVE PERCENT 8 % (BEAKER) (test code = 432) BASOPHILS RELATIVE PERCENT 0 % (BEAKER) (test code = 437) NEUTROPHILS ABSOLUTE COUNT 3.71 K/ L 1.78-5.38 (BEAKER) (test code = 670) LYMPHOCYTES ABSOLUTE COUNT 1.66 K/ L 1.32-3.57 (BEAKER) (test code = 414) MONOCYTES ABSOLUTE COUNT (BEAKER) 0.63 K/ L 0.30-0.82 (test code = 415) EOSINOPHILS ABSOLUTE COUNT 0.51 K/ L 0.04-0.54 (BEAKER) (test code = 416) BASOPHILS ABSOLUTE COUNT (BEAKER) 0.02 K/ L 0.01-0.08 (test code = 417) IMMATURE GRANULOCYTES-RELATIVE 0 % 0-1 PERCENT (BEAKER) (test code = 2801) Carotid doppler [id number] 22:47:01Ejection FractionSLEH ECHO HEARTLAB MKCKESSON [facility] [id number] 22:47:01Ejection FractionSLEH ECHO HEARTLAB MKCKESSON [facility] [id number] 22:47:01Ejection FractionSLEH ECHO HEARTLAB MKCKESSON [facility] bilateral 2021-12-21 22:47:01Ejection FractionSLEH ECHO HEARTLAB MKCKESSON [facility] [id number] 22:47:01Ejection FractionSLEH ECHO HEARTLAB MKCKESSON [facility] [id number] 21:42:01 Test Item Value Reference Range Interpretation Comments POC-GLUCOSE METER 160 mg/dL 70-110 H : Notified RN/MD: (FILIPE) (test code = TESTED AT [facility] 6720 1538) [place], [address]: 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 ID = [id number] for ANDREI HALE POCT-GLUCOSE [id number] 16:32:20 Test Item Value Reference Range Interpretation Comments POC-GLUCOSE METER 106 mg/dL 70-110 : Notified RN/MD: (FILIPE) (test code = TESTED AT [facility] 67[address] 1538) [facility], [address]: 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 ID = [id number] for JACK MOTT MR, BRAIN, [id number] 09:04:00Unlisted Reason for Exam - Click Yes and Enter Reason Below->No [facility]A CANNON : 1955 Sex: MFINAL REPORT MR, BRAIN, WITH \\T\\ WITHOUT CONTRAST INDICATION: Brain tumor, primary, glioblastoma Technique: Multiplanar, multisequence MRI images of the brain were obtained before and after demonstration of intravenous contrast. COMPARISON: 11/02/2021 FINDINGS: Postop changes from left frontotemporal craniotomy. Chronic postoperative subdural and extradural collection along the left parietal convexity and deep to the craniotomy site measures up to 0.8 cm in thickness. Resection cavity in the left temporal lobe involving the hippocampus. Mild surrounding FLAIR hyperintensity is noted. Nodular enhancement is seen at the anterior and posterior aspects of the left resection cavity inferiorly. Nodular enhancement at the anterior aspect of the resection cavity measures 1.0 x 1.1 x 1.1 cm (CC X AP X transverse). Nodular enhancement at the inferior aspect of the posterior aspect of the resection cavity measures 3.6 x 1.3 x 2.0 cm. Susceptibility effect is seen along the periphery of the resection cavity medially, posteriorly, and laterally. 0.5 cm focal enhancement in the left basal ganglia involving the lentiform nucleus (series 1201 image 12). 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 Old lacunar infarct in the right thalamus and right caudate. Scattered T2/FLAIR hyperintense foci within the periventricular and subcortical white matter are nonspecific, however, statistically represent chronic microvascular ischemic changes. No hydrocephalus. Orbits are within normal limits. Bilateral lens prostheses are present. Retention cysts in the right maxillary sinus. IMPRESSION:1.Overall, no significant change compared to .0.5 cm focal nodular enhancement in the left basal ganglia, similar to mildly decreased given differences in technique. This may represent treatment- related changes or multifocal disease. 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 Signed: Andrew Lopez Verified Date/Time: 12/21/2021 09:04:51 Reading Location: [address] Reading Room BASIC METABOLIC PANEL 2021-12-21 08:09:48 Test Item Value Reference Range Interpretation Comments SODIUM (BEAKER) 141 meq/L 136-145 (test code = 381) POTASSIUM (BEAKER) 3.1 meq/L 3.5-5.1 L (test code = 379) CHLORIDE (BEAKER) 105 meq/L 98-107 (test code = 382) CO2 (BEAKER) (test 25 meq/L 22-29 code = 355) BLOOD UREA NITROGEN 14 mg/dL 7-21 (BEAKER) (test code = 354) CREATININE (BEAKER) 0.91 mg/dL 0.57-1.25 (test code = 358) GLUCOSE RANDOM 98 mg/dL 70-105 (BEAKER) (test code = 652) CALCIUM (BEAKER) 9.2 mg/dL 8.4-10.2 (test code = 697) EGFR (BEAKER) (test 83 mL/min/1.73 ESTIMA RYLEE GFR IS code = 1092) sq m NOT ACCURATE CREATININE CLEARANCE IN PREDICTING GLOMERULAR FILTRATION RATE . ESTIMATED GFR I S NOT APPLICABLE FOR DIALYSIS PATIEN TS. Injection Molding Machine Offbearer ID - ADMINPT/[id number] 08:09:48 Test Item Value Reference Range Interpretation Comments PROTIME (BEAKER) (test 14.4 seconds 11.9-14.2 H code = 759) INR (BEAKER) (test 1.14 See_Comment [Automat ed code = 370) message] The PAX Streamline stem which generated this result transmitted reference range : <=5.90. The reference range was not used to interpret this result as normal/abnormal . PARTIAL THROMBOPLASTIN 39.3 seconds 22.5-36.0 H TIME (BEAKER) (test code = 760) RECOMMENDED COUMADIN/WARFARIN INR THERAPY RANGESSTANDARD DOSE: 2.0 - 3.0 Includes: PROPHYLAXIS for venous thrombosis, systemic embolization; TREATMENT for venous thrombosis and/or pulmonary embolus.HIGH RISK: Target INR is 2.5-3.5 for patients with mechanical heart valves.CBC (HEMOGRAM ONLY)2021-12-21 07:55:44 Test Item Value Reference Range Interpretation Comments WHITE BLOOD CELL COUNT (BEAKER) 7.0 K/ L 3.5-10.5 (test code = 775) RED BLOOD CELL COUNT (BEAKER) 4.00 M/ L 4.63-6.08 L (test code = 761) HEMOGLOBIN (BEAKER) (test code = 11.5 GM/DL 13.7-17.5 L 410) HEMATOCRIT (BEAKER) (test code = 34.2 % 40.1-51.0 L 411) MEAN CORPUSCULAR VOLUME (BEAKER) 85.5 fL 79.0-92.2 (test code = 753) MEAN CORPUSCULAR HEMOGLOBIN 28.8 pg 25.7-32.2 (BEAKER) (test code = 751) MEAN CORPUSCULAR HEMOGLOBIN CONC 33.6 GM/DL 32.3-36.5 (BEAKER) (test code = 752) RED CELL DISTRIBUTION WIDTH 12.4 % 11.6-14.4 (BEAKER) (test code = 412) PLATELET COUNT (BEAKER) (test 179 K/CU MM 150-450 code = 756) MEAN PLATELET VOLUME (BEAKER) 10.4 fL 9.4-12.4 (test code = 754) NUCLEATED RED BLOOD CELLS 0 /100 WBC 0-0 (BEAKER) (test code = 413) MR, BRAIN, [id number] 16:21:00Volumetric treatment position MRI for radiation planning Unlisted Reason for Exam - Click Yes and Enter Reason Below->No[facility] : 1955 Sex: MFINAL REPORT MRI Brain with and without contrast Clinical History: Brain tumor, primary Technique: MRI of the brain utilizing axial T1, T2, FLAIR, GRE, DWI, sagittal T1; and postgadolinium axial, sagittal, and coronal T1-weighted images. CyberKnife protocol treatment planning sequences are included. Comparisons: MRI 10/17/2021 and 10/01/2021 Findings: Left temporal craniotomy changes are again seen with a mid temporal lobe resection cavity. There is new irregular enhancement along the surgical margins including a 1.4 cm nodule inferiorly in the left middle cranial fossa and a 2.1 cmenhancing nodule at the posterior temporal margin. These areas are associated with FLAIR signal hyper intensity. An 8 mm focus of enhancement is also newly seen in the medial left lentiform nucleus/internal capsule, associated with FLAIR signal abnormality and mild DWI signal hyperintensity. An extra-axial fluid collection underlying the left craniotomy plate has slightly increased in thickness measuring up to 10 mm, previously 7 mm. Slight contouring of the left cerebral hemisphere is again seen without significant midline shift. Generalized parenchymal volume loss is again noted without hydrocephalus. Previously acute to subacute infarction of the right paracentral unique is now chronic and cavitated. The major intracranial flow-voids appear patent. IMPRESSION: Since 10/17/2021, there is new irregular nodular enhancement along the margins of the left temporal lobe resection cavity. The areas of nodularity are separate from the preoperative area of enhancement. New nodular enhancement is also seenin the left thalamocapsular region. These could represent treatment-related changes but continued attention on follow-up is recommended to exclude progression of neoplasm. Signed: Debbie Oates MDReport Verified Date/Time: 11/02/2021 16:21:31 Reading Location: [address] Neuro Reading Room [place], LUMBAR PUNCTURE, [id number] 14:42:00Labs to be ordered:->No Labs NeededLabs to be ordered:->labs orderedReason for exam:- >r/o encephalitis [facility] : 1955 Sex: MFINAL REPORT Exam: Fluoroscopic guided lumbar puncture Clinical History: Encephalitis Consent: Benefits and risks were explained to the patient who gave consent to the procedure. Complication: None immediate. Fluoro Time: 0.3 Minutes Total Images: 2 Procedure: The patient was placedin prone position. 1% lidocaine was used as local anesthetic. A 20 gauge spinal needle was used to access the thecal sac at L2-A0mhize posteriorly under fluoroscopic guidance. Approximately 14 cc of CSF was obtained and placed in 4 separate vials. The needle was removed. Hemostasis was achieved. The patient tolerated the procedure well without any adverse reactions. He left the department in stable condition. Impression: Successful fluoroscopic guided lumbar puncture as described above. Signed: Jordan Nguyen Verified Date/Time: 10/24/2021 14:42:41 POCT- GLUCOSE [id number] 11:18:10 Test Item Value Reference Range Interpretation Comments POC-GLUCOSE METER 163 mg/dL 70-110 H : TESTED A T [facility] 6720 (BEAKER) (test code = [facility], 1538) [address]: 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 ID = [id number] for Leola Sinclair POCT-GLUCOSE [id number] 09:34:47 Test Item Value Reference Range Interpretation Comments POC-GLUCOSE METER 157 mg/dL 70-110 H : TESTED A T [facility] 6720 (BEAKER) (test code = [facility], 1538) [address]: 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 ID = [id number] for Esther juan Liny POCT-GLUCOSE [id number] 07:27:24 Test Item Value Reference Range Interpretation Comments POC-GLUCOSE METER 65 mg/dL 70-110 L : TESTED A T [facility] 6720 (BEAKER) (test code = [facility], 1538) [address]: 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 ID = [id number] for Leola Garcia [id number] 06:10:05 Test Item Value Reference Range Interpretation Comments MAGNESIUM (BEAKER) (test code = 1.7 mg/dL 1.6-2.6 627) Injection Molding Machine Offbearer ID - AIMEE [id number] 06:10:05 Test Item Value Reference Range Interpretation Comments PHOSPHORUS (BEAKER) (test code = 3.4 mg/dL 2.3-4.7 604) Injection Molding Machine Offbearer ID - AIMEE MBASIC METABOLIC [id number] 06:10:04 Test Item Value Reference Range Interpretation Comments SODIUM (BEAKER) 138 meq/L 136-145 (test code = 381) POTASSIUM (BEAKER) 3.6 meq/L 3.5-5.1 (test code = 379) CHLORIDE (BEAKER) 102 meq/L 98-107 (test code = 382) CO2 (BEAKER) (test 30 meq/L 22-29 H code = 355) BLOOD UREA NITROGEN 20 mg/dL 7-21 (BEAKER) (test code = 354) CREATININE (BEAKER) 0.73 mg/dL 0.57-1.25 (test code = 358) GLUCOSE RANDOM 86 mg/dL 70-105 (BEAKER) (test code = 652) CALCIUM (BEAKER) 9.2 mg/dL 8.4-10.2 (test code = 697) EGFR (BEAKER) (test 107 mL/min/1.73 ESTIM ATED GFR IS code = 1092) sq m NOT ACCURATE CREATININE CLEARANCE IN PREDICTING GLOMERULAR FILTRATION RATE . ESTIMATED GFR I S NOT APPLICABLE FOR DIALYSIS PATIEN TS. Injection Molding Machine Offbearer ID - AIMEE [facility] (HEMOGRAM ONLY)2021-10-23 05:38:28 Test Item Value Reference Range Interpretation Comments WHITE BLOOD CELL COUNT (BEAKER) 14.7 K/ L 3.5-10.5 H (test code = 775) RED BLOOD CELL COUNT (BEAKER) 4.16 M/ L 4.63-6.08 L (test code = 761) HEMOGLOBIN (BEAKER) (test code = 12.2 GM/DL 13.7-17.5 L 410) HEMATOCRIT (BEAKER) (test code = 35.1 % 40.1-51.0 L 411) MEAN CORPUSCULAR VOLUME (BEAKER) 84.4 fL 79.0-92.2 (test code = 753) MEAN CORPUSCULAR HEMOGLOBIN 29.3 pg 25.7-32.2 (BEAKER) (test code = 751) MEAN CORPUSCULAR HEMOGLOBIN CONC 34.8 GM/DL 32.3-36.5 (BEAKER) (test code = 752) RED CELL DISTRIBUTION WIDTH 11.5 % 11.6-14.4 L (BEAKER) (test code = 412) PLATELET COUNT (BEAKER) (test 224 K/CU MM 150-450 code = 756) MEAN PLATELET VOLUME (BEAKER) 10.5 fL 9.4-12.4 (test code = 754) NUCLEATED RED BLOOD CELLS 0 /100 WBC 0-0 (BEAKER) (test code = 413) POCT-GLUCOSE [id number] 21:33:27 Test Item Value Reference Range Interpretation Comments POC-GLUCOSE METER 174 mg/dL 70-110 H : Notified RN/MD: (FILIPE) (test code = TESTED AT [facility] 67[address] 1538) [facility], [address]: 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 ID = [id number] for PACHECO KLEIN ICE POCT-GLUCOSE [id number] 17:41:15 Test Item Value Reference Range Interpretation Comments POC-GLUCOSE METER 187 mg/dL 70-110 H : TESTED A T [facility] 6720 (FILIPE) (test code = [facility] 1538) [address]: 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 ID = [id number] for Christopher Bhagat Tissue [id number] 14:22:24 Test Item Value Reference Range Interpretation Comments Case Report (test code Surgical Pathology = 104) Report Case: [id number] Authorizing Provider: Luisito Cameron MD Collected: 10/16/2021 04:54 PM Ordering Location: [facility] Received: 10/16/2021 05:03 PM SERVICES Pathologist: Juan José Courtney MD Specimens: A) - Mass, left medial temporal mass B) - Mass, left medial temporal mass C) - Mass, over line brain DIAGNOSIS (test code = [id number] 3220) FuZzEwMzNcZnRuYmpcdWMx IHtccnRmMVxlcGljOTYwMl ycubSzPZWflCFhU1Ycjbpm VDycJZ5sUE1toWjifJXrdQ UoTVPbCvUgj9wyh705xNKh p2pnBEJOndsvlFl7fHpmT2 0bc6V8IkfhH21cfGUfBXP4 KGUlQCFbkOUcNIPwRQC3OH OyzKVvN4xvIRIiNP2xkcmy VVjtDTdwMBHtlKV7PADnqR HdI0ApTCZvAFbfDESipgy5 YyFaDz2duSZnvWjlBIwoKX FqPYFwWTyoIWMxZgFrAZ1d SbGAYW3eWJPFAYSVUmMYXZ CHJOMXMCEKLnGDGJ4ZR19P IS5tU2pDQ3JKYPASN89CCY BJREgxIFdJTEQgVFlQRSAo U4YUQWXyNQlkcAObXSTdnb WYIlAGDwAESnrxWXSNXN8Q WUprWPiBTaPyFHDEOC9XZ5 IKICoqYQVHAAmBWxxAR0UW TULyOOePZPYdN3dRDYWFUX FXHPgUQwCKUAZ1LUttDYYn cGFyIEMuIEJSQUlOLCBURU 1PP5PXANzbVXCYQEsxP9RI CyvMTB3IGTFjFDuZWZ0BSH EFHK6ATDeiAFDZOKOLTBoY IFRZUEUgKEdSQURFIDQpXH Gzwm28DOD3JcZaz5N0OLO5 VQHgTPZzl0dpXJJlzNUlCb EwMzNcZnRuYmpcdWMxXGRl MgGys4tlq057oZSmy0yfKU KcByL0eQXbMJDkeQGwA026 AKYsIMdfh6suf5AzQZOuzW Vdm5Z4LFDOqlysgSq4kOke A03ty5H5GtegR5rtJBFqTI TfZ4OzPS0eUYVuVzd9CJQ6 YDC7HXDdSKZvE5UiGG1bGL WgbVHrXHq3l0sdbWdkBUXn VRZ2v7otRWmkvkFiML3vah 7joPk0g9wbwjHhGZXaCSWi lNPGHNSnI9UbzLjiXq3pjA t8aXosXqfgGLT9Pjz5KI3r fs07nui2uAuqUZIizpezPi Z5PMioDIEvxtynISd6VMjt DZZpaFV0MJEazCVaM5MvPU XaNL5ggco7AAR6VUbmGJWx NcX0APWbnPKwGGNqzKzcHC lki843BPH7WjFgRL3uM8Yq k0Q2fF0jkHPtQMFfeTDwKk MoBLSyjj0hbKQvGZirj5Xy VYX8hlG0kUWgyPPpAQNeKq J3XBfuAT6ait31UTCoHLN0 cv3poOAgqEyclpBdjBHkDK uaK8UyNYYuv462QIPjA6Cm HCDqw1I1fmPeVcWmZURagN K3viC0VVNqAK5apupse2xz URndNKovOMWsbsA6myK6FQ TrvYHzB6KysB9oALMnTG3a hiusn3giQWW8KDnmBUVrKU Z0YdFySFKdl2Nkzml0GlHb x1JtnJUlZIedQ23dx446PA KchxUuR8mnaNJtdvztcMWz tijyLEmakdJ5OFVjQGhneg hzVOGpMNysX0rfOpHuYBCl hVghRQcig9MvEGOoCOAfZk JolSEyESWsGmt6OBMnyLCi IEMmRgKbO4fgperiSnIVUY Rgg0mbE6ymoAZCqVXgJ6Lv ORcskaQvLGmgNRiuHNK2QE E9Jd97RaX7WGLrfo16 CPT Code(s) (test code j9zjzQUhZNLjbOY2SeRfWS = 4897) Pbq8gqp1VbsUOzpKCdCHoq sASvwvUsoq44gTP4tB20PG 1uOVAsUjD3HDSoelP6Ixl6 FKDpQEHraNRoR138g1ktv6 annhSuyBL2zCyrQPOwqxhd PwS1FPdvOIBuymfkCFw1SD jvOHNzmJI1JQLhiMDxZ4Zd WPIxGP7cajr1BTO8EOmrHN FzChB3YWOouRWiVNNumDtm UDzxg183QNJ6UxGqWHQbel QflPotwJ1gIfGnEGF1IVCt S5ksYYLntnN5TUMbRLvyIV OfUHpmDDVabSQvYMk8QsXy AMsiI4vaMGZ8 SPECIMEN SOURCE (test x0yipSGgYYGmcVI9XkEmJH code = 3377) Mde3hkx2CzjUNczMRoYByx hEHiewUrxf02bOD1zP79NC 4jXSHkIfP0AUIdoyT2Wzs8 ITWgTMUrbMWeR760i8zaj4 fduoNmcJA8uZuqKPDakiio DhN5RNqtJSUcuquwSUb2ME zxHNOpaZW0QQCywOKfA6Lk LUClML6nxir7RAN9SJffGD UmUhD7MARccYNcMFCbqIdu PSzji800PEN1EkLfTYAhlh LqpBeisC1nKzSaMBMWtdQr blxwYXJ9 GROSS DESCRIPTION (test r9pglWZmHTHayNCDVXGaB7 code = [id number]) jpnsVrXFXhuWIbA2Sxoybs ZWsyDC9zWF6xnHnsxXHoaG EhYE7CBANtHlSxEWSjePSs ztZuWsDfWYMerAUkoHP0DA GtQD4bgmfrCDsrNZxqURHz cfQ7IKGzgTJfF4IrLTUjHF 6jlxubDJQ1EGivaA7theEG RcrrHq2hkUEbiAhgCoVhMj NoYXJzZXQwXGZuaWwgQXJp KRc9vN4FBuwjRYJ7BHSJRh atTALoQI5My1buGXLnoIYw KCC3QMwgyCOqQPVeDHPrBE m4ZVUgTSrelQJoYC4qlWre CdqgvLune9ZdgANuFCaeSR QeVGDlMNicPVVeXS6BLgAi NZR7JiO3WELmOQh3CBz2FR 0AXePaCMVzNHE6FXz6BUBx VYt5NQkhES2RYMT0ZGJbCg IqURZ8QGK3RhRiUJPxSqOv XGYgQXJpYWwgXFxmbCBcXG 5jfVxwbGFpbiBBLiBNYXNz ShrdWGIxDYfgKQRsU78qp7 YCd5CuNN6QKAu8fbAkzomq wF1yHUUvbdSyGDcdlVWkT0 knZgYsZEANrQWsm3YhY4vu OE9hpLQbtiMrNEw2TOHdXd Poe8zcLx4pGEgcbPAfm3At myC2oBBpGZHnkzN4iUInsG quihguyTYuAGiyRKC0rEPh VDKvvPseqpQrdM3go7SaKS Geu48rLY6vGOHrh4zhilI8 ZWQgYXMgImxlZnQgbWVkaW QdVIBhnQKjqvQiCU1gw0Yz JFwlEWGdNS7eULokBG09RN wtMS6xXPQaKNDadp09vZw6 BAI2iKSdwPFgw7EvX6ozNM 3jLUATe9ApgDUttgStHCBm rLfccqVrWBUdQM4ePOIaSO 5lCILcWWXgHY9qyX3sEYNf pFBen3VtgXb3uFMcPDnpZM Pun1EuhMIedwVHP0ZaCBQe MMBGJy6fxEFvWN0QWVMzab WBBhjRYSdwzTjcnU6hXNJl X74bq4EGe2UtXUUeQFien2 ygtGrnf5GeoUEzUCiyICLx tTOuGKkshU8yVzVac4dzcZ k1UEiueiT7ZEXekm1BPyno AgzhkGfbg5NcwYCaDXneOL PiBDTwKBdtPPQpSW2ZYnNf FXG1HkZ6JHXaFDq4KDb0QA 9CKjFhLFUcZBM1NRm1BuKz WHt3RSgeWD5NWTL1FUA0HB D0GrP6KYN0LDGcZEKfMgTn XGYgQXJpYWwgXFxmbCBcXG 8vrOoitjB9IRHaYPloIMKc KS6al2TyPBSuodHDZlckaD ljTmVzdERvYzEgDQpcbHRy cGFyXGxpbjBccmluMCANCl xsdHJjaFxmczIwIFNwZWNp iDUuISbnTLYqO4PrehCbNW jtDNMrgb1niBvhEYlyTmEx ZXMpk9n3wKUbIIVwIT41UY saQf8uoSV8sK5vLGXnQRPn TBGjM86gxMGaBOZhCSLwJK A3LD1fOSzlxFK5PU0di1Bl bCBtYXNzIiBhcmUgbXVsdG lwbGUgdGFuLXdoaXRlIHNv TpHgdGrnz6RhFYQcWAKtwM OwsmMnCX8tzN6gTQCyt70b Ri03FIxfOU8xZDjuUR15LH MyJBQkOGDtNTL7FAEgKVB5 WNHdPtQpjS0wJLTuoOBye6 SsjYQ8zGRqEXLaZ2Wtf83c QNTsQCYsoJFeeHQ6OSCmuC 5uT8Oez1M3bFXqLMVyUZUh mg70W7ywKwOlCIqyfRcahR 0xJYJjP25uv7VSj6TwFKJm WQppd0rxbWjzb8AqiILqZT ytSGTqvWVgNUssrG8bVqMr w9ylxDb5IBboakX2CORdpp 1SWscgHactoPiix6VarENv XGlkIDUxMDAyIFxcZGIgIE 5RVeMsFBT2RnF9QFKdFEp1 SCs6XA6MBzWxQETyRFY8ED p0VUTeISw1UQuaHO4DOWD9 JUP1BPLrRDU8LEI9ICLjYX QgMiBcXGYgQXJpYWwgXFxm uJApIW3dwUpcewY9PGVrZU txYMUxCR6wj3YaBWKsdnKT ClxlcGljTmVzdERvYzEgDQ pcbHRycGFyXGxpbjBccmlu MCANClxsdHJjaFxmczIwIF TfSOMqsEBuDLxoMBNsA3Ld euHkYKrjZRBpib8fwOsiJT yxQdMjOXAdz4e0sBOhSTTt BZ31IOboSt7whLA0vQ5sKH DmIEIeVQLvK92pmLInSPRt ICJvdmVybHlpbmcgYnJhaW 5oBDJyHREfXERcgy72aOt4 GJB9hHOpjHLtd1ElB7joKF 2gUGXpekguphyljW8sb1j1 OHBnml9rACSbXEC5RKRuGL R1GYGzMOUgmCU2xjSsXybl yCWyXhEdbJYzAxZjI95fGE XKmLBxc5UpP4wiQG1jCLYf UMGyqLWzrAY2OXYnKD88sQ QhfRdtxT3zB5Xfw2K3cZAi ZaQzSNjxgTkokG2dBZRpC3 0tc9LEe2NpOGDhRWnrq2zz eVmza7PvzVMqFOxkNFVqzT XpQDkdyB3aTtJbj9ejiDk3 TCdwufJ4CTTqmx6EArkivH 8tWeJfz0tofVo3SQOQLseq khF9d6deqMeln5BrnZPlYK 0NCn0= INTRAOPERATIVE d5zslJRzRNNudDT2SgFzPB CONSULTATION (test code Abe1bqj4NheWRgsTSiOAhx = [id number]) sIYcfdKxbx58iNW5iB01ZS 4hPHMiIdT9LIRrcdW1Plq7 DGFsOBQmnXZyB786h1dnx7 ltwaYuiIZ0lGpoBHCatlde NoE9SQazTDVqfqhmKQj7EF uvWKQztUO7ECFyrQEqO9Zr QWGjUA1nfzt4EDY5GLjgOC BmPiH6EAGayJSkUFZwuSmp OXlqv818EMA1QnAzZSBssp C5SAclUCUhL4RxT7WiAKxl WNY3XWDaBBLbQFJtFJQoCL AeZUhjsgY5v7afFIVviKAx XQK4BMidoQHcBVWqRPMfGC ydDiQTFsMuNdDzKFL5WYPi EgG9QAo8QISOQzYpThOvGf c2YXC0TaFhOWr5VGv7UQkF NoW1Zio7ZnK6PxRsQDKmSH NqPYo6RUAkFWfobQFxKLMa HHBoOXdzMHzhC72icXvjyV 5cZnMyMCBBLiBNYXNzLlxw YXJcZnMyMCBCUkFJTiwgVE RMOO8FZUqsYHxRXdVfHDAZ CMVPHKSSYgWJZL6LW12BLt qdtK4aOQVYFEyrJrQZSr1P SZGaWFIEHMUJAYheVq0CKJ tKE06CG7PAJ2njtC8uFKKV QSAxOiBISUdILUdSQURFIE cUCZ9TURuovP7pOPghroTc KcTja5V2DQRbbC2vXLRkJO lthMCgeYRevUATug8qV69k UK4owfSfhYRuHoA3UC8jOJ B4WaC5JwXnVgPyz3yjfXqa j2TofKWlFO29DSTilOWdTO T2YX5dyEobXXV3 MICROSCOPIC DESCRIPTION u2brqZUaRUEmdHA2DnBpJM (test code = 3371) Dhj4nwf3RblCNwfOYzSBbq mXSdzbWbmx32lAA1uD60WU 4hIECxZeV4QQAjaqL0Pyd6 SRHcHHKycVHyG525o1cei3 volmYleMR6uEyxKSDkblqj JjE7MBeiRDOvxpipZUk5TV xnDWPvzXK3RIJggCGhY3Zr EFSpDN5mqze0TIK4TWuwDY HuNgY8WVStgEBeSQVqfWvg WYzvr459FME6EgRaVXHvhp ZitOdqmA5hZpZrCZKAsJMs kI5scGgstvEyqH25viTpAY slY0beX6GgPPVdZ2yza97p HLdzkHjvvpKlZ9XvKHTlmV JvbGlmZXJhdGlvbiwgYXR5 xYkyDCHoWBJqGJVcj2Rhnm 5ccGFyXHBhciBHRkFQIGRp XhS0k2XhUMG4FzPof6PkyD a3TOZewkNau2A5TIK9yX4g OQUveWhkSyGImCT5GC14TX UuIElESDEgUjEzMkggbmVn YXRpdmUuXHBhclxwYXJccG FyXHBhcn0= SPECIAL STUDIES (test m2ytaTEvCUIud0bbUSAhjG code = 3376) FuZzEwMzNcZnRuYmpcdWMx VJxlmzVxPYuuf4CmC5GaNu AwMFxhbnNpXGRlZmxhbmcx ZUPiMQP6skVsCJAvASoiBN AlKUecPp7zuRNtyAxcXjUj JTGca4edbaXJuypddJd8x8 csKIPrSiK4qZYiQUswS7qb qyWrtALaU0JjjGBcbRx8x3 cwWcHpWxO5yNIgSDzzO1vy glOarLKfZEDnQDu4gF17DT UmtE3puIWjKWwuuyQoTmW6 KLoeKMMzNnR8FIXdpZHlVE ZlW8dlPULhVViwWTVsBGyj kIKcBXE6mDmqb7S5nYAftP DryYpbMqDmJkAnIdTSb4Yg BAm2gNvsM7ClJUIjHyD7iF QgUGFyYWdyYXBoIEZvbnQ7 iFkhdvCin26bcBNbHPKoHU MtMfQfsVqlAKPsSMGUx1Hf pEvhFAR8qGy4sXkvWayoMZ T1Vna2JD8wci98tyw6aFcg WVTjotofLtP7TFroBRTiat gcLGq3BInqNQKzkQO7QFNt rAEfY5SpILXpGN6ikyp6TX V6TLvxSISrEdF5HVGwvFEm DKKhwKiiVPsse592VMS0Io NnPW6dF9Glf5V9yL0gaJMa OAGtgILdGpOdKOQhrt6hcJ LoFOeno6QhQRN5ogL7lDVb dRPgEWLlAO43Kikqi2YpSe wdb4GbX99ruBD1TIfcx4xa WG9nQlQ9tdIoAZxjs4xgcQ 3xHjT6DGedQV4aPU0rCLMy wK8uysonINNpWeQywioqCT QblCjepdMfIh1jsMuwZJA5 NNeiW8ngxN4oRuR5BDldC4 zdgS1uXSt9UJvgsGL2UYAu fW9sGK2bppqpr1giQJkkFI eiYTYsizG1yxG3CSFdzDJo Q0DpkZ6qFUJhOJ5imtavm4 ogFSY0YHdzDVTqDOY4RdOc MJVit9Tpvjr3QbQcb9EbsW HnTLpsQ92dy858CEQwthQh F1jkiLDhxblznESlkwlmFV budeD5QEFkXZSpXRguREKt XGZzMjJcbGFuZzEwMzNcaG ljaFxmMVxkYmNoXGYxXGxv Z4bgHwWnO7RtHAVpKeLuOM fxSLafuUAfdZDjtSL9lI4a AS3cRSXwnZTvT4CgDMZble DpiMOmVIC6rQTvjEUsTF9d TTdhsSDoo1vde5SgX8hdmN kczHV8IO1uCVJrQVOeJWuv p6WwxM6sRbvrcIFlqrfpUR xmczIyXGxhbmcxMDMzXGhp L2jlGfKgQXRrrOxqVEphv4 NoXGYxXGNmMlxmczIyXGx0 cmNoXHBhclxwYXJccGxhaW 8bZdKuQmXtKlgjRT3dEWWl K7qezHKzGXXtLAOjQ8syLc FuyE8haWbxYAtoSqFpReUv UpLBe280pp4iRXYchEEwkj GEmCEmmW7nHWmuMXigYNhu dFYaOPdwn6rcPTDqe7u6cF LzWVOzfmKea3ubWQeiscZq TJEgxFVthGOzBEMnn33qHD abjVvkaDdhFGNzp2XveGbb w2FnNdEwKAqrx9PvA68bbG JvbCBzbGlkZXMgcnVuIGFs w43ua6nxEOOsGqX4nPVmwC T2qPVvgOGdg5XksEspRZNp r0fzOMApyo3esmqfhYZij9 ZwcW2jnebhTJvevLTrhoAg TWFbo5t1cGFpNNCoBXQmPB vdbDe3FRRxr671gq4cjmB5 vSHmYTM9YZuwUZMrMXDxio UgZXZhbHVhdGVkXHBsYWlu XGYxXGZzMjJcbGFuZzEwMz NcaGljaFxmMVxkYmNoXGYx GTwbM8zvXhEdN9KhGCYjLj YdbVUyT4pleSMhSGKjKIny XGYxXGZzMjJcbGFuZzEwMz NcaGljaFxmMVxkYmNoXGYx ZVkbM5lwJiHsX4ZjCBTqGo IgIFxwbGFpblxmMVxmczIy HBnzaubkINYbJFrsW0yzTz KdUPLxgUdtNTltq4LjTGVi WKUjUhritdPkQBi2wdYjGK BhclxwbGFpblxmMVxmczIy YPacwiabUNYqYBewX0snKc XvZURhdDocERrdl4RqFUMt XGNmMlxmczIyIEltbXVub2 siv1TiI4lhoYcofPI4ZYVj Y8detRRmjAF8SVS4jW6eLN cajqCyJMBwq0WpLTZmZCNf PvA9nZ7uOAK1UlCYuPawCK BsYWluXGYxXGZzMjJcbGFu ZzEwMzNcaGljaFxmMVxkYm IwDYCyKRubQ2vsLrXgZ4Zj QHYwWkIrrUliYMogQHt7Uh xwbGFpblxmMVxmczIyXGxh kqpuZCZgUHktR3nlJdEeTJ OamYbkJByaf3UoYFLxALNc MlxmczIyIHMgTWVkaWNhbC EZPV53DRQkJUEmyWwzdI1l oNOVFOBeikH8u6R8FUhvZV RiRBn3YJgnyoZxIJEdkH7u PJFsTY7iQOs3tfVcQBJts2 ZoSO9xVJIhcNKaNHE8GYWx a8LfP8Ibk4ZlINZvYSFexp 6razIsVfSEgYCoRQFdxy19 MGWnHC7eD7peZXPsNYJwyl EnuQDjf8UvSBWpdAS5uLRu SU6NWqTOr03yQBBpLBRGhg MpXPLsqVkknZW2frX1lB4r LiBUaGUgRkRBIGhhcyBkZX Woat5umnNfKCVkIWTie0Ay vXYejXSoenEhV7Yer9SjEL Eqbb66KMzymVFxxp10HZ6j A0Wlg3BnkZ6sMMqfXWLlf5 WiuEIpkHQkXIZdq0MyV9tv bfykRNpryWVurB8kBGVoTP y1HUDvc5GwTFXnl9MgTvVl zeJpAQYdCFUoLCUiuW16BJ C3sBwdwIbsabFzMJ6dJHXt owRlNQYrOANbhM3tYJhhuh RvHVIpguF9i3Z1DVicESRm rjJmMlygBVB3wyTqpiV5pC FzB9egzwugRPndLFPjm8Jj qK5lqEDJgCWgp2TpaDHxoJ MDqLMkRX9bxpChAR9nTDF2 ODggKENMSUEtODgpIGFzIH G8JUivQsfbBUY9zrFxMVBw l3NkDIzeV1qaE41gpXoizP w9bERzkJryjDWtrBOcLDGc jwB2v2C4ZWNlt2MvursaXM BsYWluXGYyXGZzMjJcbGFu ZzEwMzNcaGljaFxmMlxkYm YeXHCxANawX0omPkFxEfEe JxypEUZ4qF== [facility] [id number] 14:22:24 Test Item Value Reference Range Interpretation Comments Case Report (test code Surgical Pathology = 104) Report Case: [id number] Authorizing Provider: Luisito Cameron MD Collected: 10/16/2021 04:54 PM Ordering Location: [facility] Received: 10/16/2021 05:03 PM SERVICES Pathologist: Juan José Courtney MD Specimens: A) - Mass, left medial temporal mass B) - Mass, left medial temporal mass C) - Mass, over line brain DIAGNOSIS (test code = [id number] 3220) FuZzEwMzNcZnRuYmpcdWMx IHtccnRmMVxlcGljOTYwMl uojeWhHJOzcUGoJ6Qbrxov BYrzZY2hDO0miTtvwYFnoP KsFDBiXtPgk5jff616wUVe u2vnZBXRzzcckQo2uDiuQ6 1lk6X9ZttvS83vjVZkYVH5 IPGvYNXqtIRnGEHnGHJ4JJ SuvUQoZ6blDIWyBS1bxqvw PAwmCUinIKQujCF4MOBwgL IpZ5TlEHFnUTnxQHOneqy1 JlPnNm4ybWHfgHsdOLjvJX GrJTQzSMpbZWKwAiOwGV2k YvQCFM6oZGTSSXCATuAPSP TORWYYDFQDFpOUXC5NP96W UC3aM0xCP2OEWUTQU06LYC BJREgxIFdJTEQgVFlQRSAo S8XCRDYsUFggkPQwQATzmh DZGjUBAyYPEhjyOMZBSG0M MBpaIHzAFdPrLXPERP1LW7 RISEoxEPFTCJaMPbfOT3CS SHRlJXuLGWMzP0uWPKEVNT GJRRiXAkQESTU4CDfuFNNk cGFyIEMuIEJSQUlOLCBURU 6II8KWVLufWUEQLOsxI7MM DhjWPU0BFYMiCLvIWS7GFD GTNJ0QWQvpXKKEGWKSDUpN IFRZUEUgKEdSQURFIDQpXH Krgc76HAM3SfIpt4O4THD6 JRKzWHQlk5ttBBTqlPSwQf EwMzNcZnRuYmpcdWMxXGRl CkOlz5hug092fAAzk2daDV PyYyO2wHXyKEHlvGKoK411 EZPwSXsih1ynf7ScSCOhwH Rqq2V5JLLAfddycGe7jGzq R35pb4Q5FqsvJ1amPZHbHA KhS2WrTD7jBKChQai1XYN6 QQP0NGFeYXAkU9YpLP1xLX YxcMDcBBo2o8lfmIucRHNo ZYB6n8ywLAclcaLdAI4hut 9grNu8m9lyjkDrGXDmSZPo tCSUZVJfU0OmeMceOz2gxB u6dLphSrkdTCE4Eec7GK0g lx98iul9gGkkUGAzlstjAe Z9HFuxSXSsmsnnDWb3MLwz DXKioHU1NZUdyTOdE5DtEO GhHQ4afcc5YYL9OXwfIQDh SmF6NDFpaZOaRNDsoWcjSU ggu043UFH7NnViVD0tS9Js d4R6tM7faELaXWNmlXYoKj AaCUQvby5gfSArINnqu3Km VKF2mvU2eBTzoQDsZIDdIn Q0KPlsJY3fae57TQIvXGM9 lo9jtEAppYldykBidTBaMT igD1JsKYPjo282PZHuP0De UNNty2J7xwHfOvAbGBPyuI D7ziY1IUQkTH0qjpuwc5ip DNylZGabVTJiwlL7guW0CH XmhLUlX1BfbA9jGBNaNO8x axsku1jcNAZ5XXtmYDHbEL W2QfPuJUUvv2Ocrkl2EqCu k3UwvUWqNJpbJ44bd414IQ KrtbQvO1lyuONjhuupwPSf yyoxOAlcsbI5LDVcUWsdpa aqEFDlGBeqB3wyRpMgFFFs bFcrUEdyq7TiQBCoAYBuHy GcjQNzBWZbFal0HRGpoRRg POFgEoEnW1hiuydfVeUSOP Jpl1bdN0ejlNOWjJEvG8Me JOxgonKtMZgpTLerJSQ3RF L0Ik41GqL8DNCqhx99 CPT Code(s) (test code t3iswZUrBYPvjJF8LgUuQG = 0388) Sjo2sbl5RuqXJgnOVsMDyd lCPwlmFueu88tYL8cJ66SZ 7rEITnTzG4QJLenaH1Gjy0 WRGaRVYdrHQsA919w5hqb5 dqiiVrqRB0zFtdLTUrsbzr BsR1HTmzPEXrfbidFHt7KO anXNLjgNJ9QYVtySLnH4Sh GLTuAO5cxjx6UWA7MDyuDX QeBxN2SXHvhIGfTMMsxTzp FYaob824RZJ1LeLiZOFqwd VrbYkgdG5sFsKwLYY9BAGr C0liDLLufwI1VZYbBQrdJX EbOAydZYLpzBXbBBt7SdBi LZooW8muUYW9 SPECIMEN SOURCE (test v8icyFJnZZEniOL3KaSnKH code = 3377) Bzo0erk7UolOKdtWPnUCjr gCEmttMtkp45nKU1mY32NE 8oGTClKqW4WRYpssH9Rmm4 PQFvNJDlpIErU526j2bdd5 apxpVxxES0bAtnFEUpnepc IfC7IHjmUNNvkkoyPQk2FQ buTHRpeJB6XNXcsDLnX2Gz SJVxFK6ifaz2MAG4YGvjTE KuEvO9FIGugYEvLDKskXbu QYhaf515VBE2XbVfLMKhst KaxUcgtA9uMuIePXFNasRa blxwYXJ9 GROSS DESCRIPTION (test d1zzlXQwKZHpeDQHOFQgW9 code = [id number]) ngbiIqXKJauKWyL8Jhyiws ZAnsJC6zWH6mcZpusRPawI EdIB3QWBQbRsKaCIQtwKNt fpXmSuAvYURbxYNqrEG4JA TyWG3bgtcqPEfyUIyjGKNx aaB6LEYpsNYmI8QoZJXyVS 7gzewiCUS6MJtpjA6cxpZU LvsgDy1bwNFkpSxjDkEwCr NoYXJzZXQwXGZuaWwgQXJp NCa3vE6TBjlwDEN0FJOIXj mvQXFdHW2Jy8eoJZGyyPHb VGW4JYawuGLeKJMnZZUiVK l4EIZeLNqluWYwRR7urVxa OpqvkFraj1VttLKkRZlqYD AnHZSkIOvqKPYmWA5NXvRd GYR4WsF5EMCyUOi2PKg4YT 9BSdUnHBQmWBM5OBp1ZAVr WIg6OIdxOQ3VLQG8REThQr EqTBH0LXX3YsAzWSXuZpNs XGYgQXJpYWwgXFxmbCBcXG 5jfVxwbGFpbiBBLiBNYXNz HkcuVSYyZMpiDWNmD89aa3 LTs2QqVT9EWGs7seGihnou vN4lRFIoqwObLGextGUqM9 uoRdVnCKDTtHQqd2ReX3eh SR6irRGvmxVjITw4ZDCaBv Llk3hyKn0wWOdjsEOpr3Zq fsA9tRIqPRLknhB0zVNwbH yazrxoyLXhEKsfOAR2mZSi TGWyxAyltoSwqG1uq5JgNF Pax60gCO4kMUAym0drtrE7 ZWQgYXMgImxlZnQgbWVkaW KdOSWzrDKmrbKcFS7px5Jc YRxvIEVuZF4jZAecKM69GY pkHM9fMWPnGIKjtn92jYa8 SIP7mYRjqCKzi4QeG8hwDE 9aRBDAs4RqfTXgkpVxLOIl sXcpnlWcDXCiOO4qWSUyQB 9yLTWwTOQeML7rdS5xXFQw dGUin3BswLx9pZQpHLweTZ Aya6CypRLixlYBN2XpFCLm TWVCMh9cjYVmHG0PMDKvdv XCFrlACFetpWebkD7lGDBk I40ti8EGe0YpIBElXTyaf4 mdlPxye9SovODiPZxzIFPu kLCyQNwkcW0yWaRoz8lxjJ w4BOlrmvE0JXDxwg6PMxpm DtpwhEyfc3GldJZfDJsdGC UeQHShRKejDKHoXR3RDxLw QWJ5YcL0DGQjUDk0KAc7TI 8RLzJlCQFaLXI9KIg7EeZp XHq2MEqdPU7GXIZ3DJB9NS N5YuZ4FTM7YHKqMRGxRwJi XGYgQXJpYWwgXFxmbCBcXG 8elYrsyoZ1QRIdRCzcWEDf BV3nc4KkLIXrfqSLYoupgS ljTmVzdERvYzEgDQpcbHRy cGFyXGxpbjBccmluMCANCl xsdHJjaFxmczIwIFNwZWNp rNKvRHyiADQzN1SnmrOuBY poNBSbtj4yrNjsJBysRdUg TQPzh4k7rLCkXVJpCH36OA ykHb4exWY4eN4xNUHaXJZe ZELjP12uiCRiDYDhJLZzEC L3JT6qAIrloGH3TN6qq2Ky bCBtYXNzIiBhcmUgbXVsdG lwbGUgdGFuLXdoaXRlIHNv MxFvoJvcr6KtXJLwEQXwdV VksaYbFG6ufQ3aTDCnv34m Tx63XVqyHX5qSRkdIC21BE FyGYLyLRKaAOO4KKHtMJL1 VACgGfKpqG5oRMOqqWRdd5 NcqCM7lZKkOQNeV9Tvm80c QMYvCPIerOZyfDG8PARigD 0lB5Bar5D0fAPfABEkBBWz tz55E9vdAuIaTWzryAsnqM 4fWAIrQ45uz4PCf8SvUDLl NGzoi5eguQwgt2AzlFQmZJ tzSYOjiNYwIDspuN7vCcRh b9wzpLw4ZMdjdrT1JXLxmh 6QNrwtNlyngWxmi4KvbPPl XGlkIDUxMDAyIFxcZGIgIE 8XAmRqZUM2NbR7ATQtMSv9 QIt4RL8YZzPnNOSmDGF9IF i6BJAnOJj9QHckKS4MDHI4 PKO3GHAsNDE1QRV4SEVrXA QgMiBcXGYgQXJpYWwgXFxm oSGlCN9atDarnwJ9YKMgBJ nmFKXxOD1jk6DnOUHyfaSA ClxlcGljTmVzdERvYzEgDQ pcbHRycGFyXGxpbjBccmlu MCANClxsdHJjaFxmczIwIF KmQTKszCDxLWfhBRSzQ2Jh khPlLSmnTNJzdu1ysXthHP kgUkZyGGXah0d6oTYxBSJl LE16CQreKv9ygZJ2xC5xEZ LuBFCeJUKeZ63rfDUbSOBa ICJvdmVybHlpbmcgYnJhaW 2rKMWvZHCfXDKwgw24iQm8 UBK0sOKcjZRnp0XdH1arJY 1eDHRsphwjrnniiI0tq3h9 NBSgqh4lSFVhSQA8PBSbJH S2SOYkMAHyzTX9ljKfEutn uOTqGfUldLKiLvDfE86kZX GLbXUxk1XfH5raQS4iRYSu RPMvnFEfaVI6NBDzYP14eE TbbDvgpW5eP8Ivr7J3lFHm TyVsDTqkwRbhsP3xNPLlQ8 9xh8SZq4SnRCKhUYqdm5pw mUbfk0PlyMDiYBcpQBMjqE AkVGxsyI2qMwXmw8ajxLj6 QHhyppI1MEBbdw3GOiqqeC 7bDpIdc9ngyFa4TQCDJtsy wdM5a5lobReom5XsrJNsJL 0NCn0= INTRAOPERATIVE b2xyyGVwIWDkaWX5GwMdTO CONSULTATION (test code Zbv1grt1RcoLBcdTScUIbn = [id number]) fZMvuaYafn00bGP1dK27GJ 1wZNPrQlW4APWwvhW2Kke6 YRCgCKHlbDQbG305i7ktr6 llbvIcaJX8xJigJBQaovek JgF3HEsnRHTvifziNNp2XN ejGFSruMG2WINkaBDnO1Et ICFgDX4wqmc9IJE0LIpnDM VzIdK2VOXmcBVfTBRyuHyu GDjfj692JMB3YtLoJTScdp W8MMvkHCEoW4CnT8VjAGlx TRN3MUNhPCAaAVHyWPXeVB XyJHimbiX9x6iuXGOrvBYm EGZ5UZphbLWdQXPgGXRxYA gtXrZKZrPyNnDpIXU3DMDk ChJ3XZg5NUSLUxRqKuJhJg j6NZP1AzNlJEy4ULx4NCvZ IgN1Vak2VjJ2WfHfBEAvXZ RgHJw6VLUiKDzhoIAjARDh FPNzRByyIBwxM96slHiiyE 5cZnMyMCBBLiBNYXNzLlxw YXJcZnMyMCBCUkFJTiwgVE AIGI8CSCtaUPjLQfHkKRIY DGHNFZGIAfVTSF4QX30ITy jwxR4eMTINRHrcDeKKDa2U CIYfDLIKSJVNSFapBd8CZR zUL03RP6SGP8whbC6hCELJ QSAxOiBISUdILUdSQURFIE sQBG1DXYgraR3vFToluwOn SoRnx3Q4JQWgxO8mFEOoLQ drhRHjaJQktBNEom5wQ62k HI9chcPupWLmFqF3VR8yWI O6VeR8QpFnZyUac6morCqn z4GskHRwMJ96WITueDCwDK N9NT4nsKhyMWU9 MICROSCOPIC DESCRIPTION o0ncoIQlVYHchSK5KjDzEQ (test code = 3371) Xla2zbp9OsgNVbcXQoQKdt jDPwxpYxtd79sQM4wE97HS 6tYPTbYpH7LTUhtcX7Ucg0 YOEoSWNewPLpU066y0fou9 gosxTvmAC7aRsyHACfjcga OcY6EWihKQUdrfefODf8GX saKJGqoDK4ODBqcWUfN3Tv LPQiFG0hqsd9ICX9WGvxGX LmSiY8DFPcdCAjMRYryYuq HFjcg530WRW8OwCgRGDeso ChaSvwcD4dXuVaTVRMpBVy sR7weOefldHpcY87boKmHU heL3deO8CyMWBmD5flc00q ECfumJqyknKjF3KyAQImnO JvbGlmZXJhdGlvbiwgYXR5 oJziKWZxESJmKAYnt7Bbor 5ccGFyXHBhciBHRkFQIGRp CkA9x8AzKLJ5JhQtp4UjlI w9OXKywlMoe7V3EPW0lD1e LLBbpRiqIpNEvVQ4PL84UV UuIElESDEgUjEzMkggbmVn YXRpdmUuXHBhclxwYXJccG FyXHBhcn0= SPECIAL STUDIES (test a7wbdYTmYARfl3lhVKKshG code = 3376) FuZzEwMzNcZnRuYmpcdWMx YIvcwpHuJMdtw4GkW6LuCx AwMFxhbnNpXGRlZmxhbmcx VKPrXRH7ruHmGGQvMOvqPG CpSNanJt9tzTLwrUrhHmJx YPAyo9iwfaWQujuudOb0p5 taKNHrNiY2uKXcFZohL0ia ktXmwBWrE8TbsOFayRh1n4 tdMrQhAiE0kVVoWLdaE1sl cxGtgPSkTHSvXVr8yQ35UX EngL9hjCUxCFflzrJjNsE4 ACvrRBPiRxJ1QPYadLIzYI OdT1xnCWYgBBebUUJeLIka tQBzGEG0hXojf5M5aGAtrX OrrJupAgMbGlHaYlJHn6Up NUo1jTpcK3BcKDFdFwF3aP QgUGFyYWdyYXBoIEZvbnQ7 uRwzyoHch01diNJhOOGrNQ ZoUqCmuMwdXBXpRGIMo4Bj fZzqKND5ySq8oTibCtyvOU N8Gsv7BB2pqs15xqc0tPbh NWCqfntjZpV4ZIynRIBvsv vsLQr7MUfvLSGflWV3LUKu yOJdC9CvVUXdEH4qzrz4NE U3SNloXOEcYhQ4GEWzkPCb FKNroBchTUyqr751IPX2Xv VjGR9oU0Qxc8Q2sI9obTEh DCOjzNAcIaDgBTRqyo4eeZ KzCArvd5QuWDM9frI1xJMu cGXhAKSzLY48Mhwrw8XiTb lxm9SjI29wcTI6TWriq3wy IQ5eImJ7iyMxMUnul9pylN 4dUnY6XBtnDP4aMF6mKGAj zM4cqubfGCEdWsFehotsES KseQhlbgWgVv6hwWjoCPX8 QKinG2yzpV7lMeG2GErcP5 lpjK5vRKv2FGxvgNO4IUXb fM4pNN0vjoryu6eyYGelWZ ieCKXlmmJ8gqN1YBKjzMYw T3XoaO6mGKRiYU9yjoedu9 rnUBI1QBfmRXAvOGM8UmNt TARmi5Fhite3FfSej3FggQ GeONrqD02ia005GJIutzKa H8ykgBDgekjapMZdljasNT fwfiL9GFEcEQNgJEooYMKg XGZzMjJcbGFuZzEwMzNcaG ljaFxmMVxkYmNoXGYxXGxv Q3ubFhPhW0BpHBBmMnCvLR rwDUjirOAotUNzyKD2lY0g TU9dVSSteZDuO8RfRXVore QgkTVbBJC1yAXwkFTgKE3i RNgldLPaj2jyz1DtI4enfP sroMD1KZ4dJKCpWNAxDJyw l1BqdV5bEgluxZYsqbowIT xmczIyXGxhbmcxMDMzXGhp I4fqGtMiAJOvaNikESfdn2 NoXGYxXGNmMlxmczIyXGx0 cmNoXHBhclxwYXJccGxhaW 0wDoZmPdAzMzqfQN5bLCKb R4ijoCYjBKMkGWVlT7rvTw TpwN7hyIkdUFbmDiQzJxGa IiTJk137wd2wFRGboUVjhz MBaTBtiA7gQTmeGGfuYFjt gRWvZIpes2iwGITmm6x8sE JqCMTgsrKmv1rrJKaenxPm QHVmlQAdvYVsIAIwz41vCV plqSkaeGyaYQOdt0KxvTkx x2UvAmWbUDpae6WcJ92cdY JvbCBzbGlkZXMgcnVuIGFs j30rv4ssGXPgZtJ4rARxhF J1tWNhqJXuj4JzrHwbDFGo g4cuRAFtkg3klupixOKkg3 FqmO6klxllCUsboCPjmbTp FQTtz2j9xCEcLSFqQYVdZP cerIb4QPLfn002ym6pgzB7 rLMkMZN8FYhxBXBcLLZmvb UgZXZhbHVhdGVkXHBsYWlu XGYxXGZzMjJcbGFuZzEwMz NcaGljaFxmMVxkYmNoXGYx BRdvU6upHqUiH5MgTYYgTc DjhPCrA9cbzZGaJZDqHDld XGYxXGZzMjJcbGFuZzEwMz NcaGljaFxmMVxkYmNoXGYx VPsiY3tqFaLxR0FrZPWrEf IgIFxwbGFpblxmMVxmczIy XPrgxfaxACVlWLvyQ8jlMd YeKMFjcImqHDkhr4YcNBRa KDLxXsfgjwNoMSb2khGzBZ BhclxwbGFpblxmMVxmczIy GLpjdttnVWXwNZedJ2ulAn CuLMNfnYkdZWwro8HnJJGp XGNmMlxmczIyIEltbXVub2 eot4TjZ8jwkOoveLL9SJBs Z4qetBMqoAP9LYR8bV0bOJ tbyzIaEFXck4XuWDGhZXTd YoZ6hN1mWCS2WqGBrEirBC BsYWluXGYxXGZzMjJcbGFu ZzEwMzNcaGljaFxmMVxkYm AyMRIyMCvaI3rcNqPwG9Vn DQKwMoArzRueTUahJQu6Uo xwbGFpblxmMVxmczIyXGxh drdrPORlIMteC4jjLbXyFO WdyHibJQgjl8MsZSFcSTSh MlxmczIyIHMgTWVkaWNhbC SMDY20IKEkQQTvcCffeQ9j mHPGOWCoasM0p2O0ZWycMY JePNu3OBarnjZdIZBzuH2r CBDhHX8xGEa8ttOcUATli4 NlZM3vBLSqpLOtQBE8AUDc n9YuK8Idk5JiXWLvOYFkym 9sajEpViHJgFUlSOFfwg19 BTDvES7uM9dmIJTiUCIudq KzwEKsh6KaEYZrvID5aEEg JN3XXzEKu46hSBNaIEOXqu JqGPLfhLwfsGO0keF9bP8r LiBUaGUgRkRBIGhhcyBkZX Fyzp9cvkIfYYJaERZiu7Ui qIJzgKHsyxKjL0Ium5NrWA Nlww09LFiylMFvjx42HJ9g D9Uip8EooJ0rBWcgMDMic5 YmvUEqtNJjHGUjz8XlB1kp cwqyRPrzaUGdlP4xUDQoRE w0HFTew0DyHDWrp8CgGhAx xmVfDYPpGMZkDKMpmB77UV O7zQowlLvdeqYcTY9nMPHf hnWuTCLrWKPutZ4xHLjltr EqDSXdvfZ3j5R9NVmjVUXm zhZmOtuaRDW0hvSmnvP8tA YuX4ylsyqiRWslFIVop2Jd eY6bjMUPzDPld0YfkZByqH WKgFHiZS1pkwSoAT2vMSF7 ODggKENMSUEtODgpIGFzIH N2QNnuXpffQJS3ccQnQDAy v4UwGVdnR9kjW32kbQivqD c1jJTchJfzlTNziLDuEOXk mhN6f8E8EEYyl3HzfcrzYE BsYWluXGYyXGZzMjJcbGFu ZzEwMzNcaGljaFxmMlxkYm FjYVFtJAwlW4xgDxBiUvJq GslaPPK9eX== [id number] 14:22:24 Test Item Value Reference Range Interpretation Comments Case Report (test code Surgical Pathology = 104) Report Case: [id number] Authorizing Provider: Luisito Cameron MD Collected: 10/16/2021 04:54 PM Ordering Location: [facility] Received: 10/16/2021 05:03 PM SERVICES Pathologist: Juan José Courtney MD Specimens: A) - Mass, left medial temporal mass B) - Mass, left medial temporal mass C) - Mass, over line brain DIAGNOSIS (test code = [id number] 3220) FuZzEwMzNcZnRuYmpcdWMx IHtccnRmMVxlcGljOTYwMl xbohPwUQEvaGQsZ4Qolown EQtxGJ5dVS1qnBfhbIVkwF KnYRXqUrBbn9czv270gLTp e0ncGJWYpnxosJf3tJtnI5 0if1G2GeveY07pyCOoRSK7 WWZeTAFlrRXmVOJgYKY1NM YcdMZeV0ypIYJmEQ7zsoyc BBrhSBwrZPQrrVU5QNNdyX FfW1FgEWFsYTegEDJgxph8 CrZfId0ixCEgvAubYAapGO CiDHPnLNznEVCuPuHkTG3l IlBHKJ5xLLFPCVPLGrDNLY FJVARLSARVHvNYWU6RI68X ZB5jC8yNW5CFLIGIG61YCC BJREgxIFdJTEQgVFlQRSAo S7UYRFTdBPwlkLSvWRBkad HJNcHAScUMJbqhWSIBSF6A IRcwTSxHBpZwBHASRF2EF6 ODHHamNZFRVViSMfaMY4LK SHDcNKuBVFUsI5fLIKIAOF NIQSvMOwPTVAO2HWsrEKWt cGFyIEMuIEJSQUlOLCBURU 7NW9FYDEltGQERWCpvO9FN LykVEB5LBFPhRKoKPB7WAD IDMO9QYQcfROXQHMXZRQjZ IFRZUEUgKEdSQURFIDQpXH Zpfs15TVL0SdDeq3G7JMB1 KYLlQCVjm1atEOPgzMTvEr EwMzNcZnRuYmpcdWMxXGRl PrLbv8dev651fXNev5kaGR DcOnJ5aWScSWEynABcZ002 AWFiZRkpd2ajw2ZwMGWpvX Xue6P9LFFEgitheJi0uQng L58le7V3BdzaQ1gaWLAaTB CqE7ZsXJ0tWZPpBkr0KJC4 OIT9NSVrRHBcQ1SoQB9sUP BaoPKhDKw3o6mjiIuiRMDp RSI7m1prDNhmuiWoQT5jty 2ywLd8o2whxhNnTHIaSVJl rFJUEOOmB5OblYkuKa1quN g3oUhlLcmuYXE3Fon3TT3v ya87vko1iCsvAFNpmqjlQe T1LFmzWVOubetsHXv7UDzh JCNolFX8MAIjjLGkP6YcDN CkXG3pvag5URY9KIskWEJh OgS1BMZhzDGcPMEaxAywUU iam288CFD8VeIwSY8kC2Dt x7D6eZ8riDWuLFZjvBOtLl DmQBXduo4jxSCoFLqfg3Fx SQF7trW9tDDrtJAaBOOtDj P1VRykBK4vol92EWElFEJ3 uo6gaAEioXmlkaQndBJaKH giE0OsYSIps765SQJnG4Zc QDNaj4X9cqPvVtFyNYGqsS Z3aiK8ZKBhPL9nwzvvi8ik SOuaWTkaIBFptpQ8apC7KC JqcZReX5BruV2kAMTwDZ2w dfuqz2wqHNE4XBgmPFZgPG P8XzEoMBBvy8Qfink8NlYi p8GvxNMgCJiaM91ez394ZJ QjyeSzF2rrkSYujtxvdXVp lukeQOdwmoY7YSPoMWxefl rrCJGpUJqvV0ghJyNrAFZw iCgsSHjqs0XiCWLmECOyYa KzeJYgBHCvUtb8AAPznFYg NYXlEgNwG7pyhaltAtWREB Pdp3xqF7nomNCPpUIxF4Vs GKwlcfJnOQleULmsRZL2UE R0Uz70FaF5JGQfzq19 CPT Code(s) (test code w2kjcLFwYFFbdAK3OrYjWE = 3357) Tth9nqc2JkmUOomSXxGIsd kUUtbkLfvv04tYD6wA96IO 3hTEWaCmY9DCAavzX4Klp9 FJNwMCRntMPvD822o1lei3 rpcbOmcEH3tEpeAUMcwclf DtK0ZChyBDBmranhROu0AB oqRUFjeXH2IJJeiSArB9Wq SFKpZA9hukx9DWG0XOxnEP AmFvC4OBTdsFCwQNCzpTat LNbnc374LXG9UrJmIZIrrw YzqPuseV5qXeRoNMW1QQSi B7jyTBMfvkC8TKIjOYegBV CsHZppVYFewVUiTGf4BoXz WPhtP5qcOTS6 SPECIMEN SOURCE (test g8vrlEPmZOOivBI0RcChJH code = 3377) Pom4rjk0KuvJJjtSLzIPpj oPRprrWlhq54xTY3cE18NK 3qUDBbXpS1QOPezmV4Mpl3 YTJbPSIsfPLiE022q7tyu6 ypboPdiJF4hCkjOWUshyxf DqW4MItxEOAnirlhOFh5KZ zpYQLezEF9OKFqkRYgE3Sd YOUcJP4zeol5COW2OIqpWF FiWtS0TTMqcIRlZWKcoLin WXuss754EPN2HeHfLFUheu AdfTuysT7sAoQnLNBQwiGw blxwYXJ9 GROSS DESCRIPTION (test p1vbtCLbMOMuoAGNQJNqE0 code = [id number]) zsxgZpRNYzkUHqF6Ubqnbv VLssYG6xHH7xlYdwbBAjpU CsBU2ARWXxRnVpPBVxbZKr jxIeXaJnEOUvyOZncAS7RX GnDK7vfpemNKkoUJwhNCCk paD1CUXgnGYuI2XeIRJgHD 8dsjtgPEK5VWpogZ7xoqON VnkvEt1owKVkcPbiXrIyWu NoYXJzZXQwXGZuaWwgQXJp JOs7xN8TVwowOUC3ZWBXSv ryCQBfFV8Bd4oeLEOteGIw PDW0TPkmbSXmTGZdLOQgRF d4EVKbOAoeuWKeMS4xfCgj CqywgUsgd7SzoGQpKCrwVC MgNTFyPDjlCDClSO6OWoCe GMW4FiD3LOYmREd3XCr7QU 9NJzAuOURqCIV7ALj1OQNl KDc3YJfbST6HZIG4PMAxXf KePNA9UVT8NgQtKHQgXfRr XGYgQXJpYWwgXFxmbCBcXG 5jfVxwbGFpbiBBLiBNYXNz OpjtLZDeQQcuUFPqX69xm6 YPn7ShJA3XRUm8qwJtcuoo rE2zNNCgwiBiZDpxjCMsZ8 ybOfAxNBOFuVHuk1IdX1xk TL7hwNOgymTvMTo8FBObOz Szw7ijGk7wMPvaaHDwl2Wx fqH5sKDlXIXcdzH6dTMmuV mblervzSRlFYznDXK1aJYk XEFbmUuxmlUcyL1ow1ZaOB Itk49uBR2nQDEcx5sdeqF7 ZWQgYXMgImxlZnQgbWVkaW OiMPLviNIxyeHaAC8sb9Ye PQwzELAmRI2lLDhfEH48UY tpPH4zLCNtGDBshj41hIm7 TAC0sRVkqZDcz5UqQ1klIP 9kIZOEh3XgvVMaamPoDGXd bFtocqMzTTHqYJ3wRNOyMM 3jOXXmBPBxQP8xxB6dNVZh aYWlg2DktOc9dHBqEUheAT Apc7RotHXlrtAQQ3VxVWAr HLUAJo7kbTKfYN4NSFPvcf HQTgbLGMvuzHfrbA3jOUMq G84fn6EPl5DaBPMtKCyyk9 ypsBzhy2XniVWjDMdoHSMc gEMtEIfnuD1gVtZon7etzO b8KLkcmeG1EQOrwb3UQmhs HxbgoOmti4BojTGnZMasMC MdZJJsLOdfGPPhDT7OBgSa HSS9FxU8WYMiXFg7JEe6YA 3QMrLlNNQmCHK5KBf8KtGy VMs9NZydVV7HBMM6XOT8DP T0UlW0ZVQ8BEYuWERuOzNc XGYgQXJpYWwgXFxmbCBcXG 8hpKnxppD0UFUwYZpbLEZs AI1yx2HyQOTwrlEZUcvswM ljTmVzdERvYzEgDQpcbHRy cGFyXGxpbjBccmluMCANCl xsdHJjaFxmczIwIFNwZWNp mXXhLAzdKFCoC9NqgnGaVS agKWUkhl1yaIlcZNutMxUu JRCni1e8iACgKSEnCS16WU xoYv4krHB8iB4rMVAmPLGv SFAxX62fiHFdBUDyFFFnSK Z8EW1fQEcczGY0TU5to6Vu bCBtYXNzIiBhcmUgbXVsdG lwbGUgdGFuLXdoaXRlIHNv UyGiuPwcv7GxKNXjMUZjxT BjetJsCG4qdB7sGXWnf56n Fh90MLkpWC8dKXgjTW73RY OoSMNwROCnPUV2MXLlUPF8 VXEsTaUdzY5dFHHktPNrl8 OpbAV6gAZzEUMkP8Uje15z PKMoRSVwaKSyqCS6FVIenA 7jX9Qdf2E7hZBuIIBvBBLw bz22X8caSmSpLJnxuPihvP 9cYHHaR05qi2LXs1VjIJFv IYnrv3jcwHmvy4OqmULfOE kqFMZaeHFlOXoudK4eIlJl m8vkcQp6GXakziJ3YQWpoe 3MQehfBkzbgHgww3HyvIUa XGlkIDUxMDAyIFxcZGIgIE 6EAnCxZVV0YwD6XIYtCOz0 FKz6AS0YZfFmYXNxERS2BE l7CFVqIGa1ISoxZZ1ZOPI4 VQO1JGFbVTW3SVB4EIFkQX QgMiBcXGYgQXJpYWwgXFxm bVSiJB8baIswjrV8RVPeVM kuRZKhNQ6cb9JhTTItfuZO ClxlcGljTmVzdERvYzEgDQ pcbHRycGFyXGxpbjBccmlu MCANClxsdHJjaFxmczIwIF RiKJWczDYfZPbcDGQqQ6Km qdUpOQoeNQWkql6uhSxrIK mmKnKdVHAsz5w7vVUtWYQt RM13HTjhMx9byOI0wN6cBE DcKWJzZOSuT78acSHiRDPx ICJvdmVybHlpbmcgYnJhaW 7mEWQbPAZdSIIbgp75uCw5 OXP9tPLnpOVdv3NrB6coMA 5xJKPwyoevqjvqyQ0at4d3 UGWidw1uBDMuDWB8MFLmUX B8GOOjALFzpPI7ubOzSysz wSOkTvTcaBWxPxYrR48wUJ SVdTIqf7HuM9vtAV7dYKWx AIHhkJYpiLG4RMXcZR39dV LecCgacG7zE8Svo1M3qTQm VuPpJVjszSpclW4oFWIxK7 5hk3TMh4ZyZTQuAGpxt0qj rFmzp0WeeTAqVTniKNQgpE ZnFAjfpK4dIjGhu3dntZz7 KDdrztL6GZVkor2PWidrbK 8lVtWfx5rauOq9WPINSubm gnJ6b1dkoBbxk2EmcBVfLW 0NCn0= INTRAOPERATIVE j9fosXMpEJJehJN7NzOfLC CONSULTATION (test code Mrf8llg9OzxSHphHYfZRjb = [id number]) wUMuliWjfw82cXV6oP48VB 0oXJLoKnQ7UGVdwqX7Gtl7 STAuSOYgwQPuC439d5clw8 hqyyEfwMA3bLajWTPqbfmm PtB9VIkyQYAfwrurOXl9OI obZREtpBR2VMGhiQKeZ3Et LPSwUQ5hrtw5ODQ4TJxpNC GsTaO5OVCjiCOxMYZhoRaq NRevs156ELZ2SgFtBRKsky B0EGznDHXqP1GfD9EsSXvm TLZ8YLHkPCShPCVjRAAwSX ApTOyltxK9c4aeAQWcoPKj XGM9KMazzEBuKDYaSUKyGZ nrPaBQYoGjNiKqORG9UNKe GnW8MHj5PJZXQqCkTgBrJo h7DLL4EoVbLFa2UPt3FNkJ JmA9Pls3BjQ9CvIlVYFnJU KqWSx5MHFkEExsyZItASKi DRZrHPreSLzhQ27uePmtqU 5cZnMyMCBBLiBNYXNzLlxw YXJcZnMyMCBCUkFJTiwgVE BRXY8RJQthBVeQGrJsLRKA LHCTTKXARoJQCK6WY51IRp bzhJ3eYVRQMJxmFoXIEk1T OJNyRSPPBTQUOTatPs9LAK hJR03FO8HPW6ephB7yEGIO QSAxOiBISUdILUdSQURFIE uBBZ1UGNfdnR6kJMkyoeDr GqQdc2N8LIJqcB8oYMSqUF dfeRYqdWVrqWYLnn3qO34b UO8jbxZrlGLiDtE4QL4sJR L0VhE0KuHcFtZhd2xrxBfp m2JngFQnFD87ZSPufYJvCP O5JE4tsIvwGKW2 MICROSCOPIC DESCRIPTION g2unbZMnKSNfmNY2DtRkXQ (test code = 3371) Vvm8feq2IcaNJbeYBkLMau fRGyqoCtof50pVK4qE31NH 9zVFIlTxW2HCCnotQ2Swv3 PSObILUszXDuR501o5tvr2 lrazGdlFS8fDpcHEXkskze OlV1HLdqIHEvrfweQPt2XG jmGAEjnVH6NUOxnQTxI0Vd IOJvXL1ndhz5KGD9WGwfST XrZoQ6IHUtjRRcLTQxgDzk MHoxd740FDS0QhAbNTTlha HbkHghuD8pUqAxAIALlVMk rH7msQshwzKciG10kvXqWO ipM4obH5CbMWOhA5zxv51x QRnqfByyybKtS5EaONBgfZ JvbGlmZXJhdGlvbiwgYXR5 dXgiRXHkEAXcFOJql2Kyzr 5ccGFyXHBhciBHRkFQIGRp TgM4x4WnHYY2CaFig4PkpJ w4KFBynvTdg9O4ZWM8gP4t IUOxnFzsEcZImFQ5GA93OS UuIElESDEgUjEzMkggbmVn YXRpdmUuXHBhclxwYXJccG FyXHBhcn0= SPECIAL STUDIES (test n4pfoRZnPMZbg7rtJNXhxY code = 3376) FuZzEwMzNcZnRuYmpcdWMx KRpjezHiODcxw8ThR4FdSv AwMFxhbnNpXGRlZmxhbmcx DJKaDFH9fpDhZTQpSBypYB SjCAwmTc1qcUUogYcqYnPy HTPsv4iccvAMgpwlwSw2i9 xhWXPbBmA9yOGiTWghZ7uq gmBvkKUqR2FphHFyxHm5m8 dqBoVcElT7bCJiBFgkY6hj lvBuqQOjLJJxJFv1wS32ZQ XbyT1kbTTyFMdgvvWuHgH8 NFphFXKaUqS0EYVetIGxSD AhQ4sjMNFtBRggLXYzKLoj eCKxDWV3wRzqj6A3rDBilR YjkFvmCeJeSqStLtFCv0Cm SEb1gVhlH7SdRSNkJtY4aN QgUGFyYWdyYXBoIEZvbnQ7 bNhcciUrk70mdGLiXVKvYM MsQvPzcWvnYZZrFUMGk0Kh eAytKIV9wRs8vGmwQfoxYT T8Rtp7NH4mxf48wab0cDuu QXGxwkkkQaY9HJsoPGWkpw mnSNt6IJugKWEsfMS9CFMv jRMcJ7NwUCGiFO1ytxb8YJ T2FMnlEBVeVrQ4NEMisYTd MEXtzYfzORufz003RSH2Kl IkIV5mY6Vit4J2hI1rzAEq QRCobWMuAgYhBERosr3zmW WqZCdfz9KbFBH4nzO1oRQj pISlXMDvGO63Cymlk3XrXg jqh0KyR30tpEF3EXkrw8bi TK9zAoU2beQxFTgsi8qewT 7mSyV1DWshFG4lLI0dVNGz jO4ajnfaINQsKlTceehrCB OzrJthbqHgIa9bzLpoUGY4 FGvsE3gehG2hXzR1NLbxD6 ryyE2vLWv4KHjdkMW2DXXh jN2gYG7bogdmm2nbFQvyBE uwEXDjcoY0zoU0DOAyzMGy S2VnzK7mRUKhJQ3skjhcv9 kkIEY2EJmfPHIvRUW6EvZd GKZda2Sftkd1YfNkr6DchZ DcUEenT30ea008MNXbndIu U6osbOIinmeqaMMrhcgvHC xiczB8VFZoZNWmYEhoQAHz XGZzMjJcbGFuZzEwMzNcaG ljaFxmMVxkYmNoXGYxXGxv Y4szQgWjT7GiNGKeDaNnUC cdDFeofYCeyZCstUF2bG1v HP8zLTAwmALnU5TpXEFjia TbsSKzJZH5jCRexEUvHE2n SLskuSWoi3urt7CaI9zesR cchNR8BS5sWOYlMREgNUsf i7HghY3wIrgldNZdgnqgTI xmczIyXGxhbmcxMDMzXGhp Q2nbVnCsXXAlaAebYBubd1 NoXGYxXGNmMlxmczIyXGx0 cmNoXHBhclxwYXJccGxhaW 8qGlUaBjMnPujoOB9vPIUv S9ktqGKlWDCwEDHzG4qwTo GtpM7moNglMLuzRwItKfEe NyXFs649ul4lVPByuUMqso UJkFUguA3vXZujSCdkARkg dQTlFRkhd2fwGTYfv9s6iM JuUJTvpqVgr5enEDralcZw OOWwrMXdcTTnJZRxa86wZF ncxOadbHhmPZHyv7QjzGkw g9EpOfEjJNdvc8CtH66enN JvbCBzbGlkZXMgcnVuIGFs q09ww4cnJCFkOrH4yAAenO I5nFNppEXeg5NfwEcqGPIa f7guJYBcqc7eppcctPXwa4 TbbS2ancdnMNstqOBqhcXo AHAiy3a5yEWqSDMcAZUfLJ hkiVe1BDBuu555co6npwQ1 cCYxRRT3LFbrOETqRBVqtk UgZXZhbHVhdGVkXHBsYWlu XGYxXGZzMjJcbGFuZzEwMz NcaGljaFxmMVxkYmNoXGYx EJklO0lzJfCrZ1LaURLaFq SqwJNsX9coqNHmJCDsAZey XGYxXGZzMjJcbGFuZzEwMz NcaGljaFxmMVxkYmNoXGYx HWxdQ0kvAcFfJ5AfQLFwJc IgIFxwbGFpblxmMVxmczIy QMqcfoeyXGJgGTpuH6gtUz ZvEBVhfMvyHUdwp2WwUEEg LBRdBktlmeDoZUz1ldOyYD BhclxwbGFpblxmMVxmczIy SOwlbkyiROIvAYwmR6ijRh JgKABimCdzXAhzq2JbDXKp XGNmMlxmczIyIEltbXVub2 jys5LuM4wjhFtikUJ8XGDp X4eioLZlhIQ4AMY7pO2mUA kapnYvILNtq0CsWLThRQLg CdT8dH3xGZT3JbSPdLxrOX BsYWluXGYxXGZzMjJcbGFu ZzEwMzNcaGljaFxmMVxkYm QiTRAuUWxcR3urQgYeF1Sj WCHjOaPaoQwaWNlaGUh8Us xwbGFpblxmMVxmczIyXGxh clroTWEyULonZ0suWmUeFD NrkOwsANlmn7IxIXYmHBTm MlxmczIyIHMgTWVkaWNhbC VYWU87OZEuDHQqlIqlxP4p mEGAWLPyanF5n1X5XHmpRL JiNSc6RWulkbOmFIYanP7b VKTuAK0uJZa0zhTaEXWyh9 TaEA9vYKPfxENiVKW0HQOs y4XhH6Xki5EqJQMcFZSqye 0rfxSoQwJOpPQfNSPoaf47 ZLAkUB6dG0ckRGCgQDQrnw VkkVTnu9SuXLFfcMZ1rAXs HG1IAnYHf15mEZScBJQNph TvRZXhnUkypAQ2ryI0jB2f LiBUaGUgRkRBIGhhcyBkZX Avrw0kokSpCRZaKWCmb3Vo vAXpxSCgkfDxV2Lux6EvAU Yorx13PWmzdKGyrc76PD3g Z4Hwc8YazI5qFXnkAOZdu9 DxhCKxiLDyZOJdl1VyO5qd hdcdAIgjxCGuvR1tPFZcEH f7CBLqo0VxSZJwz8XtMeUp aeDlNCVhYJVoOZJeqE91AW A7jBrlnSvuewOiWP6qULDe csUkRUGeCWPxsL8wKVdkji HuRJTtieG0e1I6GHbdPMIp heAmShglGDM7mtTchxX5nN YhT6psgvmlAYvoVNEya0Gk mF3bwOSGfVNqm3UunTCavH AZxGQkEC6uziTjNU1mXAF3 ODggKENMSUEtODgpIGFzIH A1LUcxDuddGDY9gdUhJWKa n1EpABemG7pnW81npRuhjJ k8oOUrbOpyfMPwuUNvFAEp fgL9k0M7KTVaq8HeqrtuOO BsYWluXGYyXGZzMjJcbGFu ZzEwMzNcaGljaFxmMlxkYm GiAOMjVKtaJ9hqVrVyQzBp NjloVBF9lW== [id number] 14:22:24 Test Item Value Reference Range Interpretation Comments Case Report (test code Surgical Pathology = 104) Report Case: [id number] Authorizing Provider: Luisito Cameron MD Collected: 10/16/2021 04:54 PM Ordering Location: [facility] Received: 10/16/2021 05:03 PM SERVICES Pathologist: Juan José Courtney MD Specimens: A) - Mass, left medial temporal mass B) - Mass, left medial temporal mass C) - Mass, over line brain DIAGNOSIS (test code = [id number] 3220) FuZzEwMzNcZnRuYmpcdWMx IHtccnRmMVxlcGljOTYwMl wupmMqASWvpHDxN7Ammpsl ZEimQM6sQJ7oaWtbuPAktN SzCIAaFsQfh9hde167lQVf h6nnHQIPnxmfrVb9xCicV1 2dt4P7DifbY66alQBsFVO8 YLBgWJRbrLToXALnOOI1LM KpwWOdV2igENKdIM8ajmej UPigJAcoRGUguUK3IUEnsG CtS8WqFVLeOUsqJLVlcvs9 PcSeYj6ydGXesSvtFRbcFO IbBENdZInuFSCvHgBpIM7o WtFFXE1vINLMLCUVThYSBD EOSDNUJMRHCvCRGX2WN04I QX5bD0zWH8CPGDNNG31PXG BJREgxIFdJTEQgVFlQRSAo X5QVRSKjZMqpoBCnAEDbws OJDeHWMtRAQswbLTUWKQ7P XHyzODkNMjJuDTYWMW4BZ0 LLWSssYXNKZReGFwcNV8IF MMNhLTdCQAMsE8aVQPSPAL MPIUhFWgLOCEU7DYfkKHQq cGFyIEMuIEJSQUlOLCBURU 7KT9HLRJexSARDOUrhS2IC TzsUEC6VNCSeMXpYUC4PHK BTYT4SRMycWEFMXHODXYdV IFRZUEUgKEdSQURFIDQpXH Rkoj97XRY4JlUeh8P5EDG3 UDHtCPDkr1bnPUUwpJLxFu EwMzNcZnRuYmpcdWMxXGRl LuTey4xqc260vHMob5qnLA VoAaV9jYXkXXTanMEfJ379 JKKfKBwjd2tsy6VoJBLrbL Cbh9P5RTTPxwpxxTa4yXrm Y85yv5V5IyjzH5eoBEUzIB JjQ7ObBZ0aOJQqGqy3GWT5 UTW8HOQoPMZsI2DjFB2jZC StzPMuDOc2z0erqCsaPPDw RPA1g7deCSefkzOiRF1qzd 0beEz9b0ubqgXsLZLhPPXs mGTPMOIrK9OkpOdbBj6ejW k5jOebOqblLWA6Zbs7CE8m ao23uow0lFmkSNHpeiekGy F4NJioJGNxiikcEAw5LHrr SAZrvZO6FOZbxRBjI3BlKM GbTV9eiyt3IES1PZeyXTIq SsZ4FUEefKJaAUNtiZdkOR lte548TGU9IyLuGD9yX3Tt s0X6sK0reAIoBRGnkZQlGh UoYENdev8ghQCmYTaru6Oo IDM0eqJ6tFThmLOgABZfRm H4TVsuZE1cly09FEVjELK4 im4fsJZijEbdvsShjLGhMH mtJ6SwMRZre576HINtD6Qs BACgr8I7bmNwIwUcPMWtmD R9ksS0NDZpGL4jncwrx7fe PNtsBQbbOYLkzhK4zmH2CY LokKCaM0HhoZ7vHEHrVU9i utvvy4huLGI6ZWkaXCCfDJ X2SaDmQEEtb8Tpvvl4NpXn l3MvuTFmXUamM19yw845PV LdmhCsK5lfdSWwftugaMOc nikuZSgkudS0YNVlMEowby igBIEyKOzmK7njYzTjYLDp bYzqBQodh8DzCUNmWVXvKv GkyBHnEWDzKrd0VISyoDCt BDXpHgBrR0spjdlkWfEDQQ Wpa0wgJ2nwkIBJrYKkJ8Qm QXnzwySgOAnhWIqqTMI3UZ B3Kf21WqJ9VHVzce16 CPT Code(s) (test code l4rfsREyKRUpeUK0GjLwBD = 3354) Jdu5mbj6BzoKMdyZXcNHbu eJNyxdVqkn07zGH0zV34SZ 0eGHOgCwF6TZAqdiT2Cni9 WBOdFZTqdPObE252w7urh0 msqfRnkAD0eQcvFCVnxofn UlJ0FQmcDTZvixjdNPl7BU gfGBHacRJ5TQDggGFxA2Jm SHTiFJ9qjei5KLK1JKptIE XgYkS6BTNghCOrPMRhjNgi UNrfl547VSO7DoRsPZGozc MviHwshW6rYhEeHIU6NUMl Y1vvMHNhlvE4BEKeKFreRJ VgJNloOJTjhXMhTCd8ThGn UAjtM4tvWWK6 SPECIMEN SOURCE (test h9mrjJRwDDRnmZN4KqWaXW code = 3377) Yyu5itu3WthPZyrYZzPUsm yNHegcVbps65bFF3vO44NG 6zFFImTcT2CWUbzoI1Kkc2 YOGrWZFuoZIgB508s9gey8 dqgsBnhMR1nNnvAPGfojfb VuZ1LAerZLNxnjcfXFv2QY ezVYDbkRE6QKNyaHRpN8Xh SBBjUP9xknd3ZZL9XGsvHD HuVrV9QNGfaOSqCNFaeYdm ULigr529ZAT1MoRuAIQnon ChbHegxM6aLjDdJNQQgmFk blxwYXJ9 GROSS DESCRIPTION (test i9etgIQvYIWblYRHYMXjP1 code = 6141667979) wybjEkUGYeaTDqZ0Gmgcdr PBehVW0rTB4htAaonVObpB CiBX4FCJSfTyTjAWZkzOFz boJmJsLiSOQdwJAwpJA2GB SjDR5fwllvYAwaVOfhWADi ruX8QZWhhRAtD7FbKEToQV 5iskdeMIO5DEdywO1croUG PxklHu1fzVLchNvfMrEwJj NoYXJzZXQwXGZuaWwgQXJp WXn5yO0REnwzFKR8EMJHBk boYJKcNN3Wi4isPYRuzVXq PUB0IHpbgBGqROLmEBSdDA u1XAYfXQyyoNKoNX7scIpd GgqykTode8RncOUtKWfbDZ ObOBDbKRsvWMUgEO1ZGqBv IVL7QzS9EKIeMWu3HTd1XN 3HNzIbKCBjNAM5WRb0NLRh GTb4LQadDI6EZTH4XONrWu RlRVN5INO9JmRzFXZkIaKv XGYgQXJpYWwgXFxmbCBcXG 5jfVxwbGFpbiBBLiBNYXNz HovuZBIqBPmyFKCgE45xu3 MDd3ImNZ2LWUk7tmWgcybr uL4jDQKrnqElNRkwvSDgQ5 gwHvPgFCUSuZSao6PjK8ic WP5rwIIdnbMrCOt7ZZPtPd Kul4prJs5tXLuchDBoo7Rf bgW2wWKhCNTbblV6fXLmbL voxwaxdQMtLInjDUV4cACs HUNbqLyxhdEcqH3ji6LvOV Voi48kQP8eSWKgs2zvshH4 ZWQgYXMgImxlZnQgbWVkaW VhPUFauFRdfsYaWF5ns3Xy KGnyIAGxYN1aTLzlII79BO zuGN7wUYUiCLDctp52pFq8 XBN5oVOvlUTly7EwN1mmCV 0bIAZDs4WcfGZpbgUgVEWf oTlntvYySJPfNB4vLTYlFA 8eDMQeEZDnKP5wpW7sQFOo yOQeh8ExoFa9bFUaMYomHP Mdr1YudMYdecBCB1QtVAMj CQXRAb3yxQQwCD1DZBYiom FBAkhRYWlmnAnjkS9nEBDl S61jk1XQg5UfMEOjDShdo5 zkhKedo0ShuIHtRMnbNXEe jPXyUBxwvI4qVpFgp6mtoN c3NStinxW7CFUrqa7EQevl VyojvTeum7LwzFPqYEozAN RgHQMyCJgoHOIlUD2DAvWy CUJ8JsB5WQTvMWd7JQv2FX 0VZrMpBSLqWKI3OOd8CrUw UCc7JXtyVJ6NVJR9QMV6HF A0KdY1XQF0UYJyXTGxNvEx XGYgQXJpYWwgXFxmbCBcXG 0awAprvrW4AOMiRKccLJOi MS4wt4PwHABtzqMDUekacX ljTmVzdERvYzEgDQpcbHRy cGFyXGxpbjBccmluMCANCl xsdHJjaFxmczIwIFNwZWNp iHVdUDwhTCQzH9PzvqAuCE zqPWXsei3gmGkaSIzqEtOm NBSpo8q0ePVmUPAkZT23FV fiAl0taOW9cE9mBMPnMBRq ATLbC93hhSXqCOYyLEIhUA F5QI1eRBjcxAN9IA7im2Dm bCBtYXNzIiBhcmUgbXVsdG lwbGUgdGFuLXdoaXRlIHNv ZtYjmUufh7YdRMQqXNKmkZ FxfhOnWD2mtL6sLHHng90d Qg10LOomEU5yOJjjSX77BT OtQYUzDUDrCVO6XLWpYYL0 OMPeEuWeyN6jWWGniCAey2 NkyOF0aFNxSPZyJ4Xtg11l JBWqGGOqtWPkpNA2QRCboF 1mX0Uja7J6qQRuEDBqNAEl pv63K3qeYcPcGDfdxEkbkW 6rWDKiL16xj8MNg6EqVBJy WOfet7eccUhou6NzkBHsUT gsFFOyqDQxKAifsX2nMjHr j5agrAr1FQpicnR6PZKbtd 7CVybwFbssdFpjt2ZlsZIk XGlkIDUxMDAyIFxcZGIgIE 6TEbIdCZL8HwI8VHCsPCv4 XQy9VQ1LShZnQUAbUQG5SC o4QAYuFPr4QTeaZP9JEPN1 FHI7PDIrZTX6QHM1PJVnJR QgMiBcXGYgQXJpYWwgXFxm xENiQH0dlSqysgA5SOVdJI djKOQvTA5vm4CzIBTgjaMT ClxlcGljTmVzdERvYzEgDQ pcbHRycGFyXGxpbjBccmlu MCANClxsdHJjaFxmczIwIF VfQVWjyUFoKTvbPRGlQ4In azTpLHvbYLByte8tgRbzTH jpKrBjBDNvx6y7jTOcWDOt GL77GRbkMx4hoOP2sS5eWI LyLKOgBNYnU18qlTVmZFFy ICJvdmVybHlpbmcgYnJhaW 7oTXRzZZOrRKLczu42lKd8 NFU8eMHcpBBem8FfL4btUD 4vCUDtqpoqkptuwW7ky7s5 EZLiph6vQWQoCPH6GAPfFA T7XEVtVHSjmVX1hbGvUpyd cIXjJuPtwOZbEdUxI19iUS VQiGXxo0OeB5ejMV9nRBBq VUXajHZqkIW6AROjEK24aH SilJwcrY3aF1Pwh9A5hBLx QkKxMFvqpJfwfP6kIWRtJ7 0kl8QFq9ZzXZJdIVpux0ge cQszl0UvzMAqUEoyGBNwrC KlWCpziV6bAyIjl8xadFx0 OCvnivV7RXPpnx2QUjrnhQ 4jOtDkh1aopCk0TLTFBbwq mtQ1w4gzmIokm3AvwQUxRP 0NCn0= INTRAOPERATIVE b5tcvINgRTAxuFM9HhBcPW CONSULTATION (test code Cim9utg3FilJRfrPCxSUwg = [id number]) jXOsxnVdnx04lEK6bV14FN 4eNYLdNwU8WOXikuL2Rva1 GWQwVNCdrUSeN068y0aqx7 kowzUfkJS6oDjvFPLgqtkz McY9YIatEZRqjawjFEw9QK tqXNIqmHX1YGAnbJFiL4Av TIAvHS4vjgu2YIN7IMgoRO TjXjF5CJKpcNXjUVQjzRct ASymf978GKQ2PuJlKLQoor U3ELowAWGoW6BlX1OkEJkb GZS1VBAjPKXmDMAdBBImKT EjTUkepuL5m3mgOMXsfRKh WGA9RCfdwPNqIQZzYERwUN ukStWMUmIuAxVbQOB5ZWLw LvV1FFb9OMRDDzZtNvGuWs e5SMY5DlVlNPn1HXo1DXiU PkF9Ang0TcM0LpQtGPAuUN VyGXv2YOBzHTncbGYkEJKg PLYjMMhiGZxqY79oqTvjfD 5cZnMyMCBBLiBNYXNzLlxw YXJcZnMyMCBCUkFJTiwgVE DWWN4HPBxiGHuLOaFfAXKP WSGWNCENTbNULU3RD69ZJl grsM2eCIFIZQgpGpXNAb0Y UZKpONEGUWGYQEhrIo0JQN lZQ79IE2UIQ6awiL6fLFMM QSAxOiBISUdILUdSQURFIE zBSP6FAOfmgA7kNOrirbRl KvMwe3M2PLRcrF8sDIAyPE oyjJPkgTEzmCAHeu7rX29j CA5skbXhtNVqLqY9UT2kWP T7WwU1OzLqZhFey5fbyPrx s5PqmCKpZL11JBOshZChMG P9TG5woQdiCVL2 MICROSCOPIC DESCRIPTION j1potTYsMHYaaIZ4VgDqNM (test code = 3371) Lup2ihe6UofLLsrKRkQXzz dTKyseGtwq22dWM3oK41OV 3uXGBcQfI3XQJpsbL6Frc2 CUUdMALnzSAyP902s2cvp8 vqkpXvsXZ0mCszHUSjvgre YoR7DIsfZZEajiscIPb8UZ iqMPHopDJ8ETVtlCNzK2Pf HRWnRS6nank6GFX2ZMruMP SpOlZ8ERKneEJiTZMehOcv JUusk862MXF8SuVgFWAzrc LrnHepdQ5pPsVnEBIVhYHh uZ9urPpfiwQcvE89bxVkXF xeN1lnX6SzPEAoC5ope01x HDapqBuqhiGiG4XiNAOvoZ JvbGlmZXJhdGlvbiwgYXR5 vOjlHVSjIKXjRSQzp3Wgli 5ccGFyXHBhciBHRkFQIGRp SuZ0i4AtXIT2QoDlz0LiqV w0BNAggxUxr3Y0CLH7pQ7i MGKikEbeVqNZpCT3IE91OP UuIElESDEgUjEzMkggbmVn YXRpdmUuXHBhclxwYXJccG FyXHBhcn0= SPECIAL STUDIES (test u9mctKCgUVKdb2zjEZMwuZ code = 3376) FuZzEwMzNcZnRuYmpcdWMx LPylogEaSFwan7IkJ8VbEj AwMFxhbnNpXGRlZmxhbmcx WGFqUTC7ggGcQHQfEBxpKV DaSNigBj8uyWZzcPxmWwOu XTNwh6fympFQzpjrjCw6z3 ugWPCtUdC9oWUgZPhyE2oq cpUcjVOzS3NvlXZnxBn8y0 leHzEhHcK0fNXsBVasD7jd kyQtzWYpILPmFVj4kB83JI ShtY0pkALpSOnnlbFrIyL3 OOcuNVCvXiT4RIUxkZJcEA IsW6tfKQEhHTplMYErBTpz lFYxJYY7fJvid7S8dMYjcI CdxIykZyRmTmFzBqVJu3Me IOo4bIsxK6JrGIFbVcJ9qQ QgUGFyYWdyYXBoIEZvbnQ7 jXkgfkWbf01nyELePNSuZX VmGdJzeFuwTDHcOMASg0On bZrzFKN6tEe6mTsbXqlyBQ R1Xpt8QQ6kms91fpo2bUsg VTAuinajTuR6PTfcSZJbnr fkVGx5PKumNVMrsLQ5QIPv xRJtC0KjXLVlOR7dsqo3JY E5SPcwQHXmGwF3RFEkxVZo AUAhlMbrGVfql473XCG4Ip UcRZ7fZ2Qrd6R5eI0okLRi RMAaqGAhIcNcLSTult3szV TcKDdtz4DoWEN1miE3pKTa mWQfXKRdOW37Ttzbw3ZoPg fmo1VeE47cpWJ2KKxzk9rf XU0tPpI4niRcYQvxi6mhqN 0fQhH9CMrcWJ4oJF4dSZWl rN3wvphbPESiRgKigflzUK LqgNmuxuSpRj4wuRikENM0 LEghY0nehL2gVmP8RRiuC8 hnjU5gZPy3ZAitwXD2XURq xE6qWN1meyfgw1bnWQqcTX hiTFMkijM5tiZ9XAUdbTQv J6JrwV3oTGOmER1ujelff8 cuHDI3PGvgSPTsKHD7CoMt UGGth0Ttqer0RpIyt7JjkD TzVQmqE35zx725KLWyxqZs A5tijUAktuswxWUpzfeuNE fxzlM0SQUzPKEqHRuyXZAh XGZzMjJcbGFuZzEwMzNcaG ljaFxmMVxkYmNoXGYxXGxv M0xlFiDzQ4IxWMNeRxMxSQ vqUOuenDBzsYOwbWB5sA6r DK3wITAnhCZmS4NbHUOmot UthKYaLUJ5bPZkeBTvFN3g KFuujIWxi0mvy7QhN5jeqU wexKU8RG8mPRVfQYYhBKnv k4SdwG2cZgiakVWgtvftHL xmczIyXGxhbmcxMDMzXGhp D6kjGcTkQTVueMfyXPand0 NoXGYxXGNmMlxmczIyXGx0 cmNoXHBhclxwYXJccGxhaW 8fZcBoElLgQpqfYP1nMEHq P8scrYXjCEOmYTCoH0hyMb BjoP1iaDvzAFjjKuAhSjNu RtCFg772yu4gVQUquUNval IVpKTraL6qVGccQLdtBBlr eADgODgyx0ynCDNta8l7tZ DfBKYulnYmj6zmVCjpgzPo KZLbaECxhIUfSQOzb28wAK srgQwpeTkcMLUku2ZgaPyo k2AnOfMvTXifh0VkJ70kgF JvbCBzbGlkZXMgcnVuIGFs j90zv3pdVIUbLdS5eVGczS Y4sRMlhVWvj6TerOfpECOa c0ziZBVslq2ldtxloFNcg3 YuzM9hacalZNyxyRQxxnQk BIDyz2a7vLJyTKFsFVReDW cixHp9UTJoo775jy7jpbG4 zVQfBZZ7AIpnXMKtDHWemw UgZXZhbHVhdGVkXHBsYWlu XGYxXGZzMjJcbGFuZzEwMz NcaGljaFxmMVxkYmNoXGYx WMofE9doKhAyB1CrNPSdCq VyuWOkL5xquSAzYDYtZIru XGYxXGZzMjJcbGFuZzEwMz NcaGljaFxmMVxkYmNoXGYx DEqzF5wsNtKuF4EtNIMxCc IgIFxwbGFpblxmMVxmczIy XPztuxdxOBSmCKvzE0ucUp SrJCNkiXurRIjdu3XoDWNb TRJrEvdmueIyUUw7loGfRZ BhclxwbGFpblxmMVxmczIy BPvcxapgBHWoXJwaI0lvSz ZaWPZazKvgADxnq1KuEWWz XGNmMlxmczIyIEltbXVub2 csw5ZfK7mwiTivrDS0SYWc O0menSHdjHY3GJY4xM0bFC szgdPmETVkb0GiLIPmEBEs AdW8jB3wRRU5YeMRmHqsGA BsYWluXGYxXGZzMjJcbGFu ZzEwMzNcaGljaFxmMVxkYm WlGWKnPVxyA6cgDyFjI1Bf IBXcLcAhrMyrSAqnQNc1Bw xwbGFpblxmMVxmczIyXGxh gawgGQZzLEozF3fhFxSxON DzuPrlTNwog0RiTLTiXIZx MlxmczIyIHMgTWVkaWNhbC RIKG17TXIvEECvtLnfvW5u wZWLSACqriV0e6U4YNcpLC CiLYj0JIhqwsFiRZNdcW6u PMTsAQ5vDMi9uuUfDUYsq7 IrQT4fZACheNWsVUD4GIRs j9IxW9Ehl7GoTTVcPLDrcj 0wusLxTvFNoETaIMVuom32 OHHhJD9oP5zrIWSzDMVclm DqvXLaq5WzDPPvlCB8zIEd UK0SXbFLu96fWCKaDUJNth LvXPMtnRxkbUZ0boL6wW5u LiBUaGUgRkRBIGhhcyBkZX Uwjy7rlwXqTQNdMAZum5Fh lTPnrNKyghOcY0Mwy2OjMM Ayhc43DUqrjVSwsv86ZC9x K5Jbr0WkpD0qONghPAYko9 IzuPOwnWTdCLGta9GbK4pc rqwvKTrwyFXpiL8lHQDrTU w5JWPey7MxEXQto2ZtQnUx cyFiXWGbXKWtTLOpwR50EN M8fZwluJkfthHfQC5eNRGj mbKeQJBmUDWbbC6rHUvttu PyKTKkelQ3r6C6HJokHPXt zqTiMwllSNG7csXjvhI3iW CiA4rcqisaDHwzSMGxm4Fv yB6wcCVPsUFhb9OabPTaqA SJuQRwWO7yfjYkGJ7kPQN1 ODggKENMSUEtODgpIGFzIH E0KQprYkmyCQL3paOiFQVr w4TxFCgkZ8cxA54ozFndlT a9zCYawJmjpBMdmNOkCHUe gaH9z3S3BJPps4ZhpbwpSF BsYWluXGYyXGZzMjJcbGFu ZzEwMzNcaGljaFxmMlxkYm BlHPGrVGyeV7yqEtCoVbHc WdctNLL7eS== [id number] 14:22:24 Test Item Value Reference Range Interpretation Comments Case Report (test code Surgical Pathology = 104) Report Case: [id number] Authorizing Provider: Luisito Cameron MD Collected: 10/16/2021 04:54 PM Ordering Location: [facility] Received: 10/16/2021 05:03 PM SERVICES Pathologist: Juan José Courtney MD Specimens: A) - Mass, left medial temporal mass B) - Mass, left medial temporal mass C) - Mass, over line brain DIAGNOSIS (test code = [id number]) FuZzEwMzNcZnRuYmpcdWMx IHtccnRmMVxlcGljOTYwMl rmofLgZSQofPIyC5Zcpmul LQvqWW4oNT7wzEbrqYFhrE YpCETrOeAfk0uau903vQYg k9skHEPIejjdgWq7zVirY6 7nn7C5IqglG39gvGRyNHE5 DVScWNFbxTVyJKQpSHQ1YF CjtCGiA8hxWHOhNT2kdwxs YZysDEodFRAdfNI2YTItoY QoN3LrRBFjKKwxQJQudjn8 FaIyGx0uwRWkkHqcHHlzSI CnSIGaYVowPHFcMxSjDK5t XbWSVG4lRCUBYRJTVlBVEJ LJMZQULHAOQlLHAK6GT22R XD7hV3lDJ0QYNGLRB52LRE BJREgxIFdJTEQgVFlQRSAo P4XLVCCbIBhhyLUhNBFbbo GYOlEFIrXPMnoqXWUDQY9L VYlhGUiMUsTcFJKLEV1AZ9 YZCUyhZLTXBLoKStgYB4RT CPQaMVaKJVScD3gCKAYJOI RZQBzKOcBFNUI9PXtsDFKg cGFyIEMuIEJSQUlOLCBURU 6HO2CPYHguJTHRKRkkT8FM FiaSSZ8MYWOzJLrZPG6FRH UZYS2FOLrxWQSCFPTBYCqA IFRZUEUgKEdSQURFIDQpXH Aono85SYK7QaGni5D1NJA8 TBSqFZJej5lwAZJrzKNsTr EwMzNcZnRuYmpcdWMxXGRl SxFbc4gxr893bSKgu1yvJJ OcRhI9vYAqBQLvqOIjL462 LGExXSoqt6ekf2YoYUVmuH Yps0J1RYCHmddgfYv7xUiz U23ws9U0RipcY3vjOXZpLF RyP5LhMI3xNONtUoq1OSP7 AAY9INJpIFMeH4FrXP9oBG ScuQLhJBx4j1ivlHglBQPw ZRE3c3rjOYemkuIpRA6ajz 4dwZl1e4nmvyLzZXWpSZCk gTEHEBJzN8OfjMuwOf5vmC e6pVpkGznmDBC0Nnw3IX0y sl51dol7yPurRKYduvyzBf O0JWcdMEBzlyonLXm9HJkd SQTrjKR7FEKweVJkF1SzNI GxJI8cdbi8ANH8YBltBGGe ZiY2ELYsnTCmTLYrbBmaNS cxm589OJS1YiNeFP9cR3Dt w4S0lI8daHQgCQCzxZZeQr CtGNOmwg8jmZNeNUyce7Bk EMV8uaJ0pPLmlZIkIPLuFj C6FKwdAQ7odr48DOYrLSR7 zl5lrRRqfCvygzRwhYOkCB geZ6FpYQAnz613ZVOuN5Ga WLSdv9D4moCaEvZyBWOitH S3zpM3MACkSW6yxgdxh6rk DWcpDIysESJkrdD2wdP4OY BvtAGjG7ZizE2xXTJxDM5b twfba7wsXGS8RDfgKNEdUC O3KfTnBDBnd1Bzwqf4WzFz u1OdfWJmTFilG83hn014UU KgngWwQ6iqkKNuftnxgZMs laquUNaoebD4KZVmJLpkek zbOYReTCznC0euUbRkUHEh zLewMEukn7XzAUPyQQVbMq JbhVOzXZGvMdm2MWWwtDGn ROJnRnAmJ1hshdbfLhIPBE Rok5sxS6gvaSPLrNWhZ1Eh MKpwakErHZxhXQmiRLM6ED V6Kw47YoO7TRGdaz56 CPT Code(s) (test code h8mygZPfRTBqtCO3TwHiQL = 3357) Bxt6fhk1QniASwjWOqRQsi nOKqojJumg61vWA3iX73AF 7rAKXvKpB3IIKsbxI3Jdr4 AJDnYAMbwKZpE236b6qxm4 gitxRsxNZ2wIaqXQOgezel OfP3UGuoNITembfwPQi0YC nkEXFanFB6NBCyrNRlM3Df DQVpII1ufpc0NGY7TCurAL JpZaM9RMUavFQmLIOgcTsm ARqzq555VAS2IgFzCVNutv SobQcqvL5aFkYsZCJ8UWGc S6egZHTadmQ7JMBiVTzkID IbYGqfFNEvzNScOZd8DeQp HLyeR6ugIOM9 SPECIMEN SOURCE (test y8pftPHyBOLrlWD1EnNdIJ code = 3377) Dhn6faz7EksJKlqLJyKZtj kSQsoqXcha88kTA8mY02RR 6eGXYqKeM4SADhbfV8Auk4 RMAmQWMtqKXlZ295b5sce0 pljgOjgCZ1vPzaCLZkpmjm SbD7ESbuGVBcgmrbMAd0QB bgPWLzjSU0YHTfhUJmG2Co JRZiVY2qgmc1SDL1CMogOK WyAuS7XDRfbTIfZVVqmGve NRcck471KYT4CoJuBBMphv HfqHevvL5eQqXuRXABcvMq blxwYXJ9 GROSS DESCRIPTION (test g4wblBZlHUKdcCPPJPHkL0 code = [id number]) dfsrVnVCWkhWWtE5Yktqfu EIhpVC4zES8gfWynlNRjoI RcSA0NWLCwExPzIZMjtTGn ovVyErJoWOIbxNSatQV1YE HsIG8ggsuxLCjtTWbxAIHi gkT6TRQwyYZdJ2PtUYUdGQ 0hcdhgDIA3YXwicM4zabVI AfllFb2nzSVscVqzVrIwKs NoYXJzZXQwXGZuaWwgQXJp OGk2oL1GYdroYYU3NCLSYf tuSBDsRB7Gt1dgXFYckONe XSL7WMhwwJYaMWObXOSzHE u6PUBsQKhzvSVbZD7paKxb GhxxoUewi6KefKGkSPnbRP TxOJDyGGxrJLVpCL6FZnWe VTN2LdN2PQZvLHl0FPw5LR 7GKzOxWBAcKAY3NGf7HTPo OLx6ISdoJO8XPBB6GSVwXg ZjFNG5EIQ3ZjLaXZXjVrVp XGYgQXJpYWwgXFxmbCBcXG 5jfVxwbGFpbiBBLiBNYXNz KxoiHFXsETmsLGAaX70st6 FHx7QaFZ1TZMr4xkKeyizi cQ9gWWLszhVmQWiiyOJxL8 pcHlTtUIFIqBGyq9ItY0bh EV2agWDwjnCtKQo8UTLqHb Rut7hcBw5sGCfwbSNty0Qi qpF4rHAcBBVvvmL0aMMzoA fmnmynoHUjFPiwBXR1bUFm IOLnwEkovyDeyD4sf6OrEV Jqc85hPU4bWUApy8yvexE9 ZWQgYXMgImxlZnQgbWVkaW JkNABmdEEvhkAcON3vc9Rc PZmwMDMeXA4rOAmfHG58FZ abFV3jXYAqCJQbdm55qQn7 GES3iGQckFOqw4DiK4hpEV 5tXOXFk0IxvHMymwYtQPLs mYiocmVbVXQlRA8bOAOdVO 7rIIJqEUWcTG7tpL8kNBUk gAGms4GgaXp4qZEsCQtvYR Gpm3JgnZAwnoLCD3EbARHb XUYGJp3fbHDtII0GVZYwlc VMHtzVNMxhfDeotC3aZXSn Q71pl9UIf7QxZTBsGKzbw0 axuBabf9ZboBOfMIahRACf tIGuMMjrqE4rCkEpd8nmyQ w9TFsmlmP4VCFdwz2LPgjb LnvwgLmwr4VlpBKlFDsnYD WiBERmGFqfOOBhJU4CYsAk TVE0LyQ2XRNhPGi7XWi1XK 1YZvUeJJNwWJV8LPg9YoXg UKz4KFlbTO1SPZL1ZBS7ES C9ZjR2QTQ4AEZcIIJtUeLm XGYgQXJpYWwgXFxmbCBcXG 7iiMxsawM0HJCiHOhkSSDi HR9qa4KtTUCyfuBLZeatiM ljTmVzdERvYzEgDQpcbHRy cGFyXGxpbjBccmluMCANCl xsdHJjaFxmczIwIFNwZWNp bLXgWMntZGZhD0ZbqhDwGS guGIKeaa4fvGnfPYugEvIi QYQum8s3yAZbCDApOF45ZT fvJk5hjFE1yW8kMATmRNEa XSLjL31zlGUoUTWnNLGuOJ M1KO0mEGasuAX3ED2wm6Lx bCBtYXNzIiBhcmUgbXVsdG lwbGUgdGFuLXdoaXRlIHNv SeFzvJclt6HpUFIrVUGsuI TbaeTaJO6jyQ2dNQPyr53f Ft84PZaoRT3fNRfjLK29WX IoCNPlSQHlKEI5HRIoPXS4 JKQoYkAjkN5vJUTgfGIas1 WjuNJ0rLFlKSJrC0Weq15x DEKwAAMfbKLbuLS7MGXtzU 6yP8Hyk4M5cBGmBZExCQXs lt71G3chEuDnUAqylFyzvO 6yPEZbD99vs7GIi6SnYJSy UUgve4tucZzxl0JwjELeHN gmQCOorXHiSFazsH8zDdUu q8ncxOx8FLxzteJ1GUNktk 6XHuakJdkpoZsco1TpnVGw XGlkIDUxMDAyIFxcZGIgIE 7KZkOqEDH7PaQ3ABZsFCa7 XZs3US6OHyMaTCYeMOL5YH u0HGVhQDq5TNzgUD4EIIT1 YPK3DRPsHVI3RVX8TOLhFJ QgMiBcXGYgQXJpYWwgXFxm uEUpPG4qfVjqvlE1YLYbTL ppDDVbKL9wn4EfIXDfwuVZ ClxlcGljTmVzdERvYzEgDQ pcbHRycGFyXGxpbjBccmlu MCANClxsdHJjaFxmczIwIF XrDWGsuEGdBTtyXEEnP3Fz asFpMSamALAdqc6gvOtkPE bqTtTeOEBrt8l0tYPfVSUh ZB94SNuhSf6nrSN3aL3xYH OzTQKfAVRsW44eiHPaZTTj ICJvdmVybHlpbmcgYnJhaW 5fAINfZFZqOLCgwz02jCv8 MQC7oMSsoHNyc5KoX3djMQ 0nEGAavlhqoyoetH0yj8d6 MQNmre2iPFPqXEF5WLKbHS Z0MFEeUKJekZH9hiShJjsi bSJbZeUugASwJpRyX07oXA TTlRZya5SxO4ajLW5rOJGr ZKHpfBNrkXF0ZSMzPK20uX GlzTfulY5xH9Vqj8U9lGDf XpPsQCxlcHlubE2hJZHkZ6 6ke1OYl2WqTHLfFFeqz1hy cHnzz7VqdEVzDCshWTYgyL XfYEqqjF8eZrUdt3gsdEn7 PQrnauS6LXAakm9GOogfyK 8xJkEik2azzLk6KHHDSgix ewN4x0xohGwcg5ZohGEtRF 0NCn0= INTRAOPERATIVE f5grrLIiZAVxtRZ3EaZoRP CONSULTATION (test code Vbl2onk0PbcNZqtWUxNTkx = [id number]) yNRuslWsll24hAF9sJ19CV 1hOZTmGeN1ANFgigR8Axl9 EGOkPFTxhMMfZ863s4ehs3 mallYhpZZ7yHvkGWLlwgzs IkN8LRumUSFolgnnTMq8YP mfEUBdvEI4YGBofLJkE2Qf AEDiGV1fsvv3ESU1WHvoRV XwSsP2RQKmcVHtFAIlsZto QHcjr904QSE8BeWcWIUnpw C7MQcrIHVxO2VnC5StFVam FFD0IIUaAGUxINTsSNChVI SwUEqoueA8v3gxLKSlbQVp QSN7VPdtpUIfSZEzLQFpMK sgUeYWAlSjHhTyTYT7NWYf GpZ9EFt4NWQSWhNjMcHvOb q7JSD7TvMsUSb9DPp6VXkC RnJ2Bnx7RoV4KiNgIFJdGG BcDNs7WZFeLSoukFEuUHMp CHHqQXnpWRbcN99zvHcpvA 5cZnMyMCBBLiBNYXNzLlxw YXJcZnMyMCBCUkFJTiwgVE BVAZ3EJBleMTwOOjAqUTNV DKMAIGFIWgTXOL7LN05COk bqrS4cVXOFYVklTmTHCo6W ZHIfSJFUBURZDXsbZp7LHW xZE92VT8LQJ3tbvJ5qFETZ QSAxOiBISUdILUdSQURFIE kCPG1AFXskvS4pHBtvsmHa TaSwc4G9GCHqqI1vPUClYQ glxPWfoXSenJXFlt2xH44s RV6otrVfjLEfNfI5TM2yUC Z3GgY3SlSoYkDiq0wttMhn o5JqzRUoKF99NUVuyFZxYN C4DC7lcCwgJLU7 MICROSCOPIC DESCRIPTION h5yaiSQbESLfaSD2MyTgBS (test code = 3371) Bfh7xim6LotGUztRMkLPzc mOHfirMqck28fVD2zA69LP 5mFAOeDnL4BUYlfhF6Fpp7 AMCtPYQdtFKwU538o8atv7 zvfoPjlZY0mAnhBGFxeqwd CdY2ZGhzEZUnmquwOQb0OL wgIXZdtJA5EXWgwSHnW0Ey DCXaRA3dlir2RVF7BJaoVV UoWxL0TSIypXRsMSTwsPiv IBpqo820HCH8GbVaMZXaad ZeeWbfkV3gLvWeTHFGlXJo xE2oaPerygArbJ70kjGlAX qxY8rmC9RkXRCuA3fpa97i VYlwmGrmdkObQ1RdUASovZ JvbGlmZXJhdGlvbiwgYXR5 yKuaRPLgNBLkRCZaf1Tgyg 5ccGFyXHBhciBHRkFQIGRp EgR0g2QlFNO1OuZep0YhcW s1YNMpkyKqq4W5NRL0hF3a WPSqeYvsWpLOeRQ3VB32ID UuIElESDEgUjEzMkggbmVn YXRpdmUuXHBhclxwYXJccG FyXHBhcn0= SPECIAL STUDIES (test f7ppxVCsMGLzr5qgBSJcoR code = 3376) FuZzEwMzNcZnRuYmpcdWMx VYjqtzSfJNmbk6FkV8ImLs AwMFxhbnNpXGRlZmxhbmcx YOEwDYB3wxCuXVGwXHvyWZ OxTVafPb2hsAWzgXofYiVh MYAdm6jwcbPEeqrkiLf1s6 bgCAWzFoK6nFHqWPtwJ0zn fxVpjWOkO9KhsAXhgNa5w2 nnKmPyMdY7xFVbTJyrV6dq rsBacRDoRQMbVGb4vJ43XA QltH4eySNtFVqldlMsPtU1 CAgiWHSdAkN9WVTyyXYtFJ JnP2omHEFnMYqqYDAyOGjy bRPdSUH6vFhkn2Q6sWIrjO EkwYiiJzIsLqAaApMFh6Mn WWl4fQtlC0AcICHfSrA2pM QgUGFyYWdyYXBoIEZvbnQ7 kMlvqsVwk20koVIfOQRmPJ FcTrYggRfaILCvIMLEy1Dc eXyaNMX1wZb0nXimYyitHF W2Ilc5DE9oru14gep2iTva OLVqmetySqZ4PVniUNPbxo taKOd8AEhqEAOhjAE2TZHc uHImI1UcYHObSG8srkm5FG E7RRnzJCYnPfI0DBVvhDUs RQYsgHgyOJdbu574RXL9Bz DeRD5lU3Hmo5X7zP5vvAXr GSAoiGKtUvJgHKOixp9gfZ DzADjzo6KjSDK2urA9jGHs mKNgXLUcUH91Awmam6ZmDj eap5XwU70kyDX6TJdeb0xp TJ6yUcI3fqUlZYxtw2chyP 3mBnH8SCvkPJ2hVS7mVORa dA5cjzocWCAnNhLoykwlWQ ZyuJuulpXgIa3whLplQMA7 TNcjG2vhwY2eYcS9FJgeG6 ypiA8pKRn7VNglaAN2JFZn wT3gIH1suwxed9jyQFueVW vfYRUhyzX8gnJ0LFGibEZi J6YfrR8mVNWmXT9saavdp3 zoVPG0BWjzDMJxSWY6OhEo BDAra9Mwdrn0TtHnl7QqfZ XvQSamC62dg205PUWytpFm K7eedCHizgyxxBWtlxbzKK cwecW5PIXiRLHpCEnmBEJu XGZzMjJcbGFuZzEwMzNcaG ljaFxmMVxkYmNoXGYxXGxv L9vlQiPoE7AbRIJpRfCaAG ujPAdpnBHwaHMjkNA6yE4v ST5tIPTvbQXwC1ArEUZztk BpsWDnGYL3xUAhtFVgQC9k NTfnfQVjz6vkz2WhL8fuiV nhrSU3SV4fCNPlVNTpFIgy q2HydI1sFnqwrWIirctiAW xmczIyXGxhbmcxMDMzXGhp Y2eqFjEeLSVicWbqMPjzt8 NoXGYxXGNmMlxmczIyXGx0 cmNoXHBhclxwYXJccGxhaW 0gEvBrQsUnMobyGR9dWTIm O9hqmDJjMOMmZBMaN5ssRw PwkN1bpKpyHRmsDaGrHpXm ZuNNt550wn7pLMXekNUjgm GHwECnmR8uWAfzRUoaOEcd iBTdAIszo0ntDTZaw6q7fQ BnAELylhTub4ewXOkxbdYm YRPgqENejVVxIQOox43hMX stoXeulXiwDYZar3QcyEaz l1KjBgHxSYpdp1LkQ30zfJ JvbCBzbGlkZXMgcnVuIGFs h13ci1elGYBwNmY0gLIhmR Q5kHLiwJLtx8UdkWhuKWFv d0ndIVVlkt0ikqohnCKar6 EaoS3cyzdnVYgxwPHwcnMd FTLug0o5wKTtTAEkPNXyKB zleJq1LBVsw463ls4jhdV9 xPBaUWY2HSzoTIBqMVFhsh UgZXZhbHVhdGVkXHBsYWlu XGYxXGZzMjJcbGFuZzEwMz NcaGljaFxmMVxkYmNoXGYx YLrhF1ivBvDwS9KfXQUzFs GodIYsE9auyMRxLGKqAHve XGYxXGZzMjJcbGFuZzEwMz NcaGljaFxmMVxkYmNoXGYx DRtbC4soJtGsX0MwOOCrRy IgIFxwbGFpblxmMVxmczIy GYsafujmWMTrMPjeO2pjLy BrVNKkkZqnAGdpv2GuZQBk EGBzFidvecRnUGq8uuLqQE BhclxwbGFpblxmMVxmczIy AGbhtzzbYDRdERztH7jiMo CnWOUglSlpSJsmp8PeXZSy XGNmMlxmczIyIEltbXVub2 qas5FvQ9gurZluxMG5VNCe F0ildBIovFG6ZLU8eU9tKW pijpUzBYVlt3UzVXVgLFIc WnY2yY8sOEG9IdQDiRbmKE BsYWluXGYxXGZzMjJcbGFu ZzEwMzNcaGljaFxmMVxkYm VfAUFmKIstM4ktXfKrA2Ds HBJdVgXfmIoxPKsrAGm7Lh xwbGFpblxmMVxmczIyXGxh mferXBJkTJaqB8khHtMsMJ RnxPrzDYhms9KbSSPeOFGc MlxmczIyIHMgTWVkaWNhbC DPXB42RMTaODLidDjmuB5i aARGEXBmtfU3e1H1OJczSU RxZSm8EXsxtrIqTVPshY7z RXWhLK4rDOj4epIjWYZfl0 FrHN0oUSHuhPLdNCQ4PXOq c9SaY9Ohi6KsJUOgPNOfir 2dpoGmIoBLsLMlYVTcdn35 IZVhAK7aJ8sfGNLwMSUbqn LmgJIpk1LeSXZzaCI9hKNo VT7VPtTVy49jVQMaGZYOnp IlOIEclMgauDH4dhJ1bV0g LiBUaGUgRkRBIGhhcyBkZX Lgek4yovMoQYEpETPuu5Zv iIAvyPBccnEjN6Yrx0BzWK Vwqv03BOpmqWAcgl65RY3d E4Rrd1GdcE7tIRcmVPYwo3 FqjUZrtAHbXQTxv5TsO8fs aehjRWzheSFjeF3kBWWoAU x5XGQkt3WxPYZdc7JfNtVm txPcJJGcVTBsDZEnlJ61FP Q1wBbibBhzjuRqNQ3qFIWa slKrYCWwDAIcpY3nPKbtyp JbATLmicN6o2L2CBheTJQh ghAbPfoyORF4caBmouL2bL RdG6qyvihuJXieSYKyf5Gs rW3goIFCjEGkd6YcmXVanP XLgUOnRR1hieKeWD5tIOK3 ODggKENMSUEtODgpIGFzIH J3CZffAuxnSPH6fsPnCSZt q6NdBUcaR6ygR11wbFumjX v4wUBgpFhpnQAskUYxEAHr peP2o9T1DHJlv2DlfmzpIJ BsYWluXGYyXGZzMjJcbGFu ZzEwMzNcaGljaFxmMlxkYm DwGVLfOHyxC6smBoAgMlFm TuwuADM8gW== [facility] [id number] 14:22:24Surgical Pathology Report Case: [id number] Authorizing Provider: Luisito Cameron MD Collected: 10/16/2021 04:54 PM Ordering Location: [facility] Received: 10/16/2021 05:03 PM SERVICES Pathologist:Juan José Courtney MD Specimens: A) - Mass, left medial temporal mass B) - Mass, left medial temporal mass C) - Mass, over line brain A. BRAIN, TEMPORAL, LEFT, CRANIOTOMY - GLIOBLASTOMA, IDH1 WILD TYPE (GRADE 4)B. BRAIN, TEMPORAL, LEFT, CRANIOTOMY - GLIOBLASTOMA, IDH1 WILD TYPE (GRADE 4)C. BRAIN, TEMPORAL, LEFT, CRANIOTOMY - GLIOBLASTOMA, IDH1 WILD TYPE (GRADE 4) Signing Pathologist Direct Phone Line: [phone] signed by Juan José Courtney MD on 10/22/2021 at 2:22 [id number] X 3BrainA. Mass.The specimen is received fresh for intraoperative consultation, labeled with patient information and designated as "left medial temporal mass" is a 1.0 x 0.8 x 0.1 cm rainey-white tissue specimen. Touch preparations are made and the remainder is submitted in cassettes FSA1 and A2.JCB. Mass.Specimen is received in formalin labeled with patient information and designated as "left medial temporal mass" are multiple rainey-white soft tissue specimens ranging from 2.5 x 1.1 x 0.5 cm to 0.5 x 0.5 x 0.2 cm. Bus Driver Supervisor sections are submitted in cassettes B1 through B3.C. Mass.Specimen is received in formalin labeled with patient information and designated as "overlying brain" are 3tan-white tissue specimens ranging in size from 1.0 x 0.8 x 0.5 cm to 0.8 x 0.4 x 0.2 cm. The specimens are submitted entirely in cassette C1.A. Mass.BRAIN, TEMPORAL, LEFT MEDIAL, CRANIOTOMY:TP1: NECROTIC MATERIAL NONDIAGNOSTICFSA 1: HIGH-GRADE GLIOMAReported to Dr. Cameron by Dr. 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 P53 positive in most tumor cells. Ki 60-70%. IDH1 R132H negative.The interpretation of this case included the use of immunohistochemistry or special stains.Control Slides Examined: In-house known positive controls were evaluated along with the test tissue. These control slides run alongside ofthe patients sample show appropriate staining. Internal positive and negative controls when available are evaluated Immunohistochemistry technical testing was performed at [facility] Pathology Laboratory where it was developed and its performance characteristics were determined.It has not been cleared or approved by the U.S. Food and Drug Administration. The FDA has determinedthat such clearance or approval is not necessary. The test is used for clinical purposes. It should not be regarded as investigational or for research. This laboratory is certified under the Clinical Laboratory Improvement Amendments of 1988 (CLIA-88) as qualified to perform high complexity clinical laboratory testing.POCT-GLUCOSE [id number] 12:07:23 Test Item Value Reference Range Interpretation Comments POC-GLUCOSE METER 131 mg/dL 70-110 H : TESTED A T [facility] 6720 (BEAKER) (test code = [facility], 1538) [id number]: 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 ID = [id number] for Christopher Bhagat POCT-GLUCOSE [id number] 07:50:50 Test Item Value Reference Range Interpretation Comments POC-GLUCOSE METER 132 mg/dL 70-110 H : TESTED A T [facility] 6720 (BEAKER) (test code = [facility], 1538) [id number]: 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 ID = [id number] for Christopher Bhagat [id number] 05:43:11 Test Item Value Reference Range Interpretation Comments PHOSPHORUS (BEAKER) (test code = 3.3 mg/dL 2.3-4.7 604) Injection Molding Machine Offbearer ID - PIAYA LBASIC METABOLIC [id number] 05:43:10 Test Item Value Reference Range Interpretation Comments SODIUM (BEAKER) 139 meq/L 136-145 (test code = 381) POTASSIUM (BEAKER) 4.0 meq/L 3.5-5.1 (test code = 379) CHLORIDE (BEAKER) 105 meq/L 98-107 (test code = 382) CO2 (BEAKER) (test 27 meq/L 22-29 code = 355) BLOOD UREA NITROGEN 22 mg/dL 7-21 H (BEAKER) (test code = 354) CREATININE (BEAKER) 0.72 mg/dL 0.57-1.25 (test code = 358) GLUCOSE RANDOM 189 mg/dL 70-105 H (BEAKER) (test code = 652) CALCIUM (BEAKER) 9.2 mg/dL 8.4-10.2 (test code = 697) EGFR (BEAKER) (test 109 mL/min/1.73 ESTIM ATED GFR IS code = 1092) sq m NOT ACCURATE CREATININE CLEARANCE IN PREDICTING GLOMERULAR FILTRATION RATE . ESTIMATED GFR I S NOT APPLICABLE FOR DIALYSIS PATIEN TS. Injection Molding Machine Offbearer ID - RICHARD [id number] 05:43:10 Test Item Value Reference Range Interpretation Comments MAGNESIUM (BEAKER) (test code = 1.9 mg/dL 1.6-2.6 627) Injection Molding Machine Offbearer ID - RICHARD LCBC (HEMOGRAM ONLY)2021-10-22 05:12:36 Test Item Value Reference Range Interpretation Comments WHITE BLOOD CELL COUNT (BEAKER) 10.1 K/ L 3.5-10.5 (test code = 775) RED BLOOD CELL COUNT (BEAKER) 4.00 M/ L 4.63-6.08 L (test code = 761) HEMOGLOBIN (BEAKER) (test code = 11.7 GM/DL 13.7-17.5 L 410) HEMATOCRIT (BEAKER) (test code = 34.3 % 40.1-51.0 L 411) MEAN CORPUSCULAR VOLUME (BEAKER) 85.8 fL 79.0-92.2 (test code = 753) MEAN CORPUSCULAR HEMOGLOBIN 29.3 pg 25.7-32.2 (BEAKER) (test code = 751) MEAN CORPUSCULAR HEMOGLOBIN CONC 34.1 GM/DL 32.3-36.5 (BEAKER) (test code = 752) RED CELL DISTRIBUTION WIDTH 11.3 % 11.6-14.4 L (BEAKER) (test code = 412) PLATELET COUNT (BEAKER) (test 201 K/CU MM 150-450 code = 756) MEAN PLATELET VOLUME (BEAKER) 10.5 fL 9.4-12.4 (test code = 754) NUCLEATED RED BLOOD CELLS 0 /100 WBC 0-0 (BEAKER) (test code = 413) POCT-GLUCOSE [id number] 20:45:21 Test Item Value Reference Range Interpretation Comments POC-GLUCOSE METER 228 mg/dL 70-110 H : TESTED A T [facility] 6720 (BEAKER) (test code = [facility] [place], 1538) [id number]: 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 ID = [id number] for Cj Jimenez POCT-GLUCOSE [id number] 17:40:28 Test Item Value Reference Range Interpretation Comments POC-GLUCOSE METER 224 mg/dL 70-110 H : TESTED A T [facility] 6720 (BEAKER) (test code = [facility], 1538) 73107: 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 ID = [id number] for Christopher Bhagat POCT-GLUCOSE [id number] 11:35:02 Test Item Value Reference Range Interpretation Comments POC-GLUCOSE METER 228 mg/dL 70-110 H : TESTED A T [facility] [address] (BEAKER) (test code = [facility], 1538) 56559: 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 ID = [id number] for Christopher Bhagat POCT-GLUCOSE [id number] 08:18:39 Test Item Value Reference Range Interpretation Comments POC-GLUCOSE METER 192 mg/dL 70-110 H : TESTED A T [facility] 6720 (BEAKER) (test code = [facility], 1538) 10730: 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 ID = [id number] for Christopher Bhagat [id number] 05:04:31 Test Item Value Reference Range Interpretation Comments MAGNESIUM (BEAKER) (test code = 2.0 mg/dL 1.6-2.6 627) Injection Molding Machine Offbearer ID - AIMEE [id number] 05:04:31 Test Item Value Reference Range Interpretation Comments PHOSPHORUS (BEAKER) (test code = 2.6 mg/dL 2.3-4.7 604) Injection Molding Machine Offbearer ID - AIMEE MBASIC METABOLIC [id number] 05:04:30 Test Item Value Reference Range Interpretation Comments SODIUM (BEAKER) 140 meq/L 136-145 (test code = 381) POTASSIUM (BEAKER) 3.9 meq/L 3.5-5.1 (test code = 379) CHLORIDE (BEAKER) 106 meq/L 98-107 (test code = 382) CO2 (BEAKER) (test 24 meq/L 22-29 code = 355) BLOOD UREA NITROGEN 21 mg/dL 7-21 (BEAKER) (test code = 354) CREATININE (BEAKER) 0.69 mg/dL 0.57-1.25 (test code = 358) GLUCOSE RANDOM 222 mg/dL 70-105 H (BEAKER) (test code = 652) CALCIUM (BEAKER) 9.4 mg/dL 8.4-10.2 (test code = 697) EGFR (BEAKER) (test 114 mL/min/1.73 ESTIM ATED GFR IS code = 1092) sq m NOT ACCURATE CREATININE CLEARANCE IN PREDICTING GLOMERULAR FILTRATION RATE . ESTIMATED GFR I S NOT APPLICABLE FOR DIALYSIS PATIEN TS. Injection Molding Machine Offbearer ID - AIMEE [facility] (HEMOGRAM ONLY)2021-10-21 04:46:22 Test Item Value Reference Range Interpretation Comments WHITE BLOOD CELL COUNT (BEAKER) 9.0 K/ L 3.5-10.5 (test code = 775) RED BLOOD CELL COUNT (BEAKER) 3.93 M/ L 4.63-6.08 L (test code = 761) HEMOGLOBIN (BEAKER) (test code = 11.6 GM/DL 13.7-17.5 L 410) HEMATOCRIT (BEAKER) (test code = 33.9 % 40.1-51.0 L 411) MEAN CORPUSCULAR VOLUME (BEAKER) 86.3 fL 79.0-92.2 (test code = 753) MEAN CORPUSCULAR HEMOGLOBIN 29.5 pg 25.7-32.2 (BEAKER) (test code = 751) MEAN CORPUSCULAR HEMOGLOBIN CONC 34.2 GM/DL 32.3-36.5 (BEAKER) (test code = 752) RED CELL DISTRIBUTION WIDTH 11.3 % 11.6-14.4 L (BEAKER) (test code = 412) PLATELET COUNT (BEAKER) (test 179 K/CU MM 150-450 code = 756) MEAN PLATELET VOLUME (BEAKER) 10.6 fL 9.4-12.4 (test code = 754) NUCLEATED RED BLOOD CELLS 0 /100 WBC 0-0 (BEAKER) (test code = 413) POCT-GLUCOSE [id number] 20:30:03 Test Item Value Reference Range Interpretation Comments POC-GLUCOSE METER 247 mg/dL 70-110 H : TESTED Cedric T [facility] 6720 (BEAKER) (test code = [facility] [place], 1538) 43416: 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 ID = [id number] for Alli janet Jessydennise POCT-GLUCOSE [id number] 17:37:48 Test Item Value Reference Range Interpretation Comments POC-GLUCOSE METER 236 mg/dL 70-110 H : TESTED A T [facility] 6720 (BEAKER) (test code = [facility], 1538) 39029: 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 ID = [id number] for John Cervantes POCT-GLUCOSE [id number] 12:14:45 Test Item Value Reference Range Interpretation Comments POC-GLUCOSE METER 187 mg/dL 70-110 H : TESTED A T [facility] 6720 (BEAKER) (test code = [facility], 1538) 80757: 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 ID = [id number] for NOHEMI LUTHER POCT-GLUCOSE [id number] 07:29:10 Test Item Value Reference Range Interpretation Comments POC-GLUCOSE METER 205 mg/dL 70-110 H : TESTED A T [facility] 6720 (BEAKER) (test code = [facility], 1538) 94232: 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 ID = [id number] for NOHEMI LUTHER [id number] 07:08:57 Test Item Value Reference Range Interpretation Comments PHOSPHORUS (BEAKER) (test code = 2.4 mg/dL 2.3-4.7 604) Injection Molding Machine Offbearer ID - AIMEE [id number] 07:08:56 Test Item Value Reference Range Interpretation Comments MAGNESIUM (BEAKER) (test code = 2.1 mg/dL 1.6-2.6 627) Injection Molding Machine Offbearer ID - AIMEE MBASIC METABOLIC [id number] 07:08:55 Test Item Value Reference Range Interpretation Comments SODIUM (BEAKER) 143 meq/L 136-145 (test code = 381) POTASSIUM (BEAKER) 3.8 meq/L 3.5-5.1 (test code = 379) CHLORIDE (BEAKER) 109 meq/L 98-107 H (test code = 382) CO2 (BEAKER) (test 25 meq/L 22-29 code = 355) BLOOD UREA NITROGEN 19 mg/dL 7-21 (BEAKER) (test code = 354) CREATININE (BEAKER) 0.72 mg/dL 0.57-1.25 (test code = 358) GLUCOSE RANDOM 237 mg/dL 70-105 H (BEAKER) (test code = 652) CALCIUM (BEAKER) 8.6 mg/dL 8.4-10.2 (test code = 697) EGFR (BEAKER) (test 109 mL/min/1.73 ESTIM ATED GFR IS code = 1092) sq m NOT ACCURATE CREATININE CLEARANCE IN PREDICTING GLOMERULAR FILTRATION RATE . ESTIMATED GFR I S NOT APPLICABLE FOR DIALYSIS PATIEN TS. Injection Molding Machine Offbearer ID - AIMEE [facility] [place] (HEMOGRAM ONLY)2021-10-20 06:32:23 Test Item Value Reference Range Interpretation Comments WHITE BLOOD CELL COUNT (BEAKER) 10.0 K/ L 3.5-10.5 (test code = 775) RED BLOOD CELL COUNT (BEAKER) 3.61 M/ L 4.63-6.08 L (test code = 761) HEMOGLOBIN (BEAKER) (test code = 10.9 GM/DL 13.7-17.5 L 410) HEMATOCRIT (BEAKER) (test code = 31.7 % 40.1-51.0 L 411) MEAN CORPUSCULAR VOLUME (BEAKER) 87.8 fL 79.0-92.2 (test code = 753) MEAN CORPUSCULAR HEMOGLOBIN 30.2 pg 25.7-32.2 (BEAKER) (test code = 751) MEAN CORPUSCULAR HEMOGLOBIN CONC 34.4 GM/DL 32.3-36.5 (BEAKER) (test code = 752) RED CELL DISTRIBUTION WIDTH 11.5 % 11.6-14.4 L (BEAKER) (test code = 412) PLATELET COUNT (BEAKER) (test 173 K/CU MM 150-450 code = 756) MEAN PLATELET VOLUME (BEAKER) 11.2 fL 9.4-12.4 (test code = 754) NUCLEATED RED BLOOD CELLS 0 /100 WBC 0-0 (BEAKER) (test code = 413) POCT-GLUCOSE [id number] 21:36:48 Test Item Value Reference Range Interpretation Comments POC-GLUCOSE METER 280 mg/dL 70-110 H : TESTED A T [facility] 6720 (BEAKER) (test code = [facility], 1538) 18559: 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 ID = [id number] for MARIANA HAMILTON POCT-GLUCOSE [id number] 17:41:57 Test Item Value Reference Range Interpretation Comments POC-GLUCOSE METER 246 mg/dL 70-110 H : TESTED A T [facility] 6720 (BEAKER) (test code = [facility], 1538) 42169: 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 ID = [id number] for Um eh, [place]umbu POCT-GLUCOSE [id number] 13:00:32 Test Item Value Reference Range Interpretation Comments POC-GLUCOSE METER 286 mg/dL 70-110 H : TESTED A T [facility] 6720 (BEAKER) (test code = [facility], 1538) 60332: 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 ID = [id number] for Um eh, [place] POCT-GLUCOSE [id number] 09:19:45 Test Item Value Reference Range Interpretation Comments POC-GLUCOSE METER 228 mg/dL 70-110 H : TESTED A T [facility] 6720 (BEAKER) (test code = [facility], 1538) 14045: 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 ID = [id number] for Um eh, [place] [id number] 06:06:06 Test Item Value Reference Range Interpretation Comments PHOSPHORUS (BEAKER) (test code = 2.0 mg/dL 2.3-4.7 L 604) Injection Molding Machine Offbearer ID - [id number] 06:06:05 Test Item Value Reference Range Interpretation Comments MAGNESIUM (BEAKER) (test code = 2.3 mg/dL 1.6-2.6 627) Injection Molding Machine Offbearer ID - BSBASIC METABOLIC [id number] 06:06:04 Test Item Value Reference Range Interpretation Comments SODIUM (BEAKER) 142 meq/L 136-145 (test code = 381) POTASSIUM (BEAKER) 3.7 meq/L 3.5-5.1 (test code = 379) CHLORIDE (BEAKER) 106 meq/L 98-107 (test code = 382) CO2 (BEAKER) (test 25 meq/L 22-29 code = 355) BLOOD UREA NITROGEN 16 mg/dL 7-21 (BEAKER) (test code = 354) CREATININE (BEAKER) 0.75 mg/dL 0.57-1.25 (test code = 358) GLUCOSE RANDOM 227 mg/dL 70-105 H (BEAKER) (test code = 652) CALCIUM (BEAKER) 8.5 mg/dL 8.4-10.2 (test code = 697) EGFR (BEAKER) (test 104 mL/min/1.73 ESTIM ATED GFR IS code = 1092) sq m NOT ACCURATE CREATININE CLEARANCE IN PREDICTING GLOMERULAR FILTRATION RATE . ESTIMATED GFR I S NOT APPLICABLE FOR DIALYSIS PATIEN TS. Injection Molding Machine Offbearer ID - [facility] (HEMOGRAM ONLY)2021-10-19 05:35:46 Test Item Value Reference Range Interpretation Comments WHITE BLOOD CELL COUNT (BEAKER) 13.8 K/ L 3.5-10.5 H (test code = 775) RED BLOOD CELL COUNT (BEAKER) 3.63 M/ L 4.63-6.08 L (test code = 761) HEMOGLOBIN (BEAKER) (test code = 10.5 GM/DL 13.7-17.5 L 410) HEMATOCRIT (BEAKER) (test code = 32.1 % 40.1-51.0 L 411) MEAN CORPUSCULAR VOLUME (BEAKER) 88.4 fL 79.0-92.2 (test code = 753) MEAN CORPUSCULAR HEMOGLOBIN 28.9 pg 25.7-32.2 (BEAKER) (test code = 751) MEAN CORPUSCULAR HEMOGLOBIN CONC 32.7 GM/DL 32.3-36.5 (BEAKER) (test code = 752) RED CELL DISTRIBUTION WIDTH 11.6 % 11.6-14.4 (BEAKER) (test code = 412) PLATELET COUNT (BEAKER) (test 159 K/CU MM 150-450 code = 756) MEAN PLATELET VOLUME (BEAKER) 10.8 fL 9.4-12.4 (test code = 754) NUCLEATED RED BLOOD CELLS 0 /100 WBC 0-0 (BEAKER) (test code = 413) POCT-GLUCOSE [id number] 20:51:28 Test Item Value Reference Range Interpretation Comments POC-GLUCOSE METER 330 mg/dL 70-110 H : TESTED A T [facility] 6720 (Anthera Pharm[employer]AKER) (test code = [facility] [place], 1538) 31313: 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 ID = [id number] for IRASEMA VANCE POCT-GLUCOSE [id number] 16:34:10 Test Item Value Reference Range Interpretation Comments POC-GLUCOSE METER 283 mg/dL 70-110 H : TESTED A T [facility] 6720 (BEAKER) (test code = [facility], 1538) 01390: 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 ID = [id number] for NE WBURY, COLT POCT-GLUCOSE [id number] 11:28:10 Test Item Value Reference Range Interpretation Comments POC-GLUCOSE METER 272 mg/dL 70-110 H : TESTED A T [facility] 6720 (BEAKER) (test code = [facility], 1538) 85224: 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 ID = [id number] for NE WBURY, COLT POCT-GLUCOSE [id number] 06:32:11 Test Item Value Reference Range Interpretation Comments POC-GLUCOSE METER 245 mg/dL 70-110 H : TESTED A T [facility] 6720 (BEAKER) (test code = [facility], 1538) 70195: 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 ID = [id number] for Marti Edwards [id number] 05:00:31 Test Item Value Reference Range Interpretation Comments PHOSPHORUS (BEAKER) (test code = 2.0 mg/dL 2.3-4.7 L 604) Injection Molding Machine Offbearer ID - LIZBET GBASIC METABOLIC [id number] 05:00:30 Test Item Value Reference Range Interpretation Comments SODIUM (BEAKER) 142 meq/L 136-145 (test code = 381) POTASSIUM (BEAKER) 3.7 meq/L 3.5-5.1 (test code = 379) CHLORIDE (BEAKER) 109 meq/L 98-107 H (test code = 382) CO2 (BEAKER) (test 24 meq/L 22-29 code = 355) BLOOD UREA NITROGEN 18 mg/dL 7-21 (BEAKER) (test code = 354) CREATININE (BEAKER) 0.96 mg/dL 0.57-1.25 (test code = 358) GLUCOSE RANDOM 223 mg/dL 70-105 H (BEAKER) (test code = 652) CALCIUM (BEAKER) 8.9 mg/dL 8.4-10.2 (test code = 697) EGFR (BEAKER) (test 78 mL/min/1.73 ESTIMA RYLEE GFR IS code = 1092) sq m NOT ACCURATE CREATININE CLEARANCE IN PREDICTING GLOMERULAR FILTRATION RATE . ESTIMATED GFR I S NOT APPLICABLE FOR DIALYSIS PATIEN TS. Injection Molding Machine Offbearer ID - LIZBET [id number] 05:00:30 Test Item Value Reference Range Interpretation Comments MAGNESIUM (BEAKER) (test code = 2.0 mg/dL 1.6-2.6 627) Injection Molding Machine Offbearer ID - LIZBET [facility] (HEMOGRAM ONLY)2021-10-18 04:37:15 Test Item Value Reference Range Interpretation Comments WHITE BLOOD CELL COUNT (BEAKER) 19.2 K/ L 3.5-10.5 H (test code = 775) RED BLOOD CELL COUNT (BEAKER) 3.48 M/ L 4.63-6.08 L (test code = 761) HEMOGLOBIN (BEAKER) (test code = 10.5 GM/DL 13.7-17.5 L 410) HEMATOCRIT (BEAKER) (test code = 30.0 % 40.1-51.0 L 411) MEAN CORPUSCULAR VOLUME (BEAKER) 86.2 fL 79.0-92.2 (test code = 753) MEAN CORPUSCULAR HEMOGLOBIN 30.2 pg 25.7-32.2 (BEAKER) (test code = 751) MEAN CORPUSCULAR HEMOGLOBIN CONC 35.0 GM/DL 32.3-36.5 (BEAKER) (test code = 752) RED CELL DISTRIBUTION WIDTH 11.8 % 11.6-14.4 (BEAKER) (test code = 412) PLATELET COUNT (BEAKER) (test 151 K/CU MM 150-450 code = 756) MEAN PLATELET VOLUME (BEAKER) 10.5 fL 9.4-12.4 (test code = 754) NUCLEATED RED BLOOD CELLS 0 /100 WBC 0-0 (BEAKER) (test code = 413) POCT-GLUCOSE [id number] 20:37:30 Test Item Value Reference Range Interpretation Comments POC-GLUCOSE METER 263 mg/dL 70-110 H : TESTED A T [facility] 6720 (BEAKER) (test code = [facility] [place], 1538) 36588: 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 ID = [id number] for Ag im, [place] BASIC METABOLIC [id number] 18:56:13 Test Item Value Reference Range Interpretation Comments SODIUM (BEAKER) 140 meq/L 136-145 (test code = 381) POTASSIUM (BEAKER) 3.7 meq/L 3.5-5.1 (test code = 379) CHLORIDE (BEAKER) 106 meq/L 98-107 (test code = 382) CO2 (BEAKER) (test 23 meq/L 22-29 code = 355) BLOOD UREA NITROGEN 19 mg/dL 7-21 (BEAKER) (test code = 354) CREATININE (BEAKER) 1.23 mg/dL 0.57-1.25 (test code = 358) GLUCOSE RANDOM 354 mg/dL 70-105 H (BEAKER) (test code = 652) CALCIUM (BEAKER) 8.8 mg/dL 8.4-10.2 (test code = 697) EGFR (BEAKER) (test 59 mL/min/1.73 ESTIMA RYLEE GFR IS code = 1092) sq m NOT ACCURATE CREATININE CLEARANCE IN PREDICTING GLOMERULAR FILTRATION RATE . ESTIMATED GFR I S NOT APPLICABLE FOR DIALYSIS PATIEN TS. Injection Molding Machine Offbearer ID - BSMR, BRAIN, [id number] 18:41:00Unlisted Reason for Exam - Click Yes and Enter Reason Below->YesUnlisted Reason for Exam->s/p brain tumor resectionP[facility]: [facility] : 1955 Sex: MFINAL REPORT MR, BRAIN, WITH \\T\\ WITHOUT CONTRAST INDICATION: Unlisted Reason forExams/p brain tumor resection Technique: MRI of the brain utilizing axial T1, T2, FLAIR, GRE, DWI, sagittal T1; and postgadolinium axial, sagittal, and coronal T1-weighted images. 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 Small extra-axial collection subjacent to the craniotomy measures up to 1.1 cm. With approximately 1 cm rightward midline shift. No residual enhancing tumor is identified. Mild expected postoperative hemosiderin deposition and cytotoxic edema along the resection margin. Small volume of layering hemorrhage within the dependent portion of the resection cavity. 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 Scattered T2/FLAIR hyperintense fociwithin the periventricular and subcortical white matter are nonspecific, however, statistically represent chronic microvascular ischemic changes. No hydrocephalus. Orbits are within normal limits. Prior bilateral lens surgery. No obstructive paranasal sinus disease. Additional findings: None. IMPRESSION: 1.Status post resection of left temporal lobe tumor. 1.1 cm extra-axial collection subjacent to the left pterional craniotomy is present and there are small volume layering blood products within thedependent portions of the cavity.2.No acute infarct of the left lentiform nucleus.3.Evolving subacute infarct of the right unique. Signed: Evelyn Victor Verified Date/Time: 10/17/2021 18:41:37 POCT-GLUCOSE [id number] 16:59:26 Test Item Value Reference Range Interpretation Comments POC-GLUCOSE METER 231 mg/dL 70-110 H : TESTED A [facility]20 ([employer]) (test code = [facility], 153) 69018: 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 ID = [id number] for COLT NEELY [id number] 15:37:08 Test Item Value Reference Range Interpretation Comments PROCALCITONIN (Anthera PharmaceuticalsAKER) (test code 0.10 ng/mL <0.05 H = 3036) SEPSIS RISK (ng/mL)Low: 0.05-0.50Intermediate: 0.51-2.00High: >=2.01POCT- GLUCOSE [id number] 11:39:46 Test Item Value Reference Range Interpretation Comments POC-GLUCOSE METER 263 mg/dL 70-110 H : TESTED A T [facility] 6720 ([employer]) (test code = [facility], 153) 64875: 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 ID = [id number] for KELY JAVIER POCT-GLUCOSE [id number] 08:10:56 Test Item Value Reference Range Interpretation Comments POC-GLUCOSE METER 256 mg/dL 70-110 H : Notified RN/MD: (BEAKER) (test code = TESTED AT [facility] 3075 3627) [facility], [address]: 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 ID = [id number] for LL KELY LINDA [id number] 05:15:41 Test Item Value Reference Range Interpretation Comments PHOSPHORUS (BEAKER) (test code = 2.3 mg/dL 2.3-4.7 604) Injection Molding Machine Offbearer ID - RICHARD [id number] 05:15:40 Test Item Value Reference Range Interpretation Comments MAGNESIUM (BEAKER) (test code = 1.4 mg/dL 1.6-2.6 L 627) Injection Molding Machine Offbearer ID - RICHARD LBASIC METABOLIC [id number] 05:15:40 Test Item Value Reference Range Interpretation Comments SODIUM (BEAKER) 142 meq/L 136-145 (test code = 381) POTASSIUM (BEAKER) 3.6 meq/L 3.5-5.1 (test code = 379) CHLORIDE (BEAKER) 108 meq/L 98-107 H (test code = 382) CO2 (BEAKER) (test 20 meq/L 22-29 L code = 355) BLOOD UREA NITROGEN 18 mg/dL 7-21 (BEAKER) (test code = 354) CREATININE (BEAKER) 1.25 mg/dL 0.57-1.25 (test code = 358) GLUCOSE RANDOM 291 mg/dL 70-105 H (BEAKER) (test code = 652) CALCIUM (BEAKER) 8.8 mg/dL 8.4-10.2 (test code = 697) EGFR (BEAKER) (test 58 mL/min/1.73 ESTIMA RYLEE GFR IS code = 1092) sq m NOT ACCURATE CREATININE CLEARANCE IN PREDICTING GLOMERULAR FILTRATION RATE . ESTIMATED GFR I S NOT APPLICABLE FOR DIALYSIS PATIEN TS. Injection Molding Machine Offbearer ID - RICHARD [facility] (HEMOGRAM ONLY)2021-10-17 04:38:01 Test Item Value Reference Range Interpretation Comments WHITE BLOOD CELL COUNT (BEAKER) 13.5 K/ L 3.5-10.5 H (test code = 775) RED BLOOD CELL COUNT (BEAKER) 4.05 M/ L 4.63-6.08 L (test code = 761) HEMOGLOBIN (BEAKER) (test code = 12.0 GM/DL 13.7-17.5 L 410) HEMATOCRIT (BEAKER) (test code = 34.9 % 40.1-51.0 L 411) MEAN CORPUSCULAR VOLUME (BEAKER) 86.2 fL 79.0-92.2 (test code = 753) MEAN CORPUSCULAR HEMOGLOBIN 29.6 pg 25.7-32.2 (BEAKER) (test code = 751) MEAN CORPUSCULAR HEMOGLOBIN CONC 34.4 GM/DL 32.3-36.5 (BEAKER) (test code = 752) RED CELL DISTRIBUTION WIDTH 11.6 % 11.6-14.4 (BEAKER) (test code = 412) PLATELET COUNT (BEAKER) (test 174 K/CU MM 150-450 code = 756) MEAN PLATELET VOLUME (BEAKER) 10.5 fL 9.4-12.4 (test code = 754) NUCLEATED RED BLOOD CELLS 0 /100 WBC 0-0 (BEAKER) (test code = 413) BLOOD GAS, [id number] 19:43:19 Test Item Value Reference Range Interpretation Comments PH ARTERIAL (BEAKER) (test code = 7.44 7.35-7.45 383) PCO2 ARTERIAL (BEAKER) (test code 35 mm Hg 35-45 = 384) PO2 ARTERIAL (BEAKER) (test code 217 mm Hg 80-90 H = 385) O2 SATURATION ARTERIAL (BEAKER) 99.5 % 96.0-97.0 H (test code = 386) HCO3 ARTERIAL (BEAKER) (test code 23 mmol/L 21-29 = 388) BASE EXCESS ARTERIAL (BEAKER) -0.7 mmol/L -2.0-3.0 (test code = 387) PATIENT TEMPERATURE (BEAKER) 37.8 (test code = 1818) FIO2 (BEAKER) (test code = 1819) 60.0 GLUCOSE-STAT [id number] 19:43:19 Test Item Value Reference Range Interpretation Comments GLUCOSE RANDOM (BEAKER) (test code 200 mg/dL 70-110 H = 652) HGB/HCT (H&H) - STAT [id number] 19:43:19 Test Item Value Reference Range Interpretation Comments HEMOGLOBIN (BEAKER) (test code = 12.8 GM/DL 13.0-16.8 L 410) HEMATOCRIT (BEAKER) (test code = 38.0 % 40.0-50.0 L 411) SODIUM NA-STAT [id number] 19:42:34 Test Item Value Reference Range Interpretation Comments SODIUM (BEAKER) (test code = 381) 136 meq/L 136-145 POTASSIUM-STAT [id number] 19:42:34 Test Item Value Reference Range Interpretation Comments POTASSIUM (BEAKER) (test code = 4.2 meq/L 3.6-5.5 379) POCT-GLUCOSE [id number] 12:41:49 Test Item Value Reference Range Interpretation Comments POC-GLUCOSE METER 87 mg/dL 70-110 : TESTED A T [facility] 6720 (BEAKER) (test code = [facility], 1538) 18740: 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 ID = [id number] for GLADYSIrving GODWIN JULYJOHNATHON POCT-GLUCOSE [id number] 07:32:24 Test Item Value Reference Range Interpretation Comments POC-GLUCOSE METER 79 mg/dL 70-110 : TESTED A T [facility] 6720 (BEAKER) (test code = [facility], 1538) 15631: 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 ID = [id number] for MIMI WYATT SARS-COV2/RT-PCR ([facility])2021-10-11 21:00:23 Test Item Value Reference Range Interpretation Comments SARS-COV2/RT-PCR (test code = Negative Negative [id number]) Negative result for this test determines that SARS-CoV-2 RNA was not present in the specimen above the Limit of Detection (LOD). However, Negative results do not preclude SARS-CoV-2 infection and should not be used as the sole basis for treatment or patient management decisions. Negative results must be combined with clinical observations, patient history, and epidemiological information. A false negative result may occur if a specimen is improperly collected, transported, or handled. A false negative result should be considered if patient's recent exposures or clinical presentation indicate that COVID-19 (SARS-CoV-2) is likely and diagnostic tests for other causes of illness are negative. Re-testing should be considered in cases of suspected false negatives.The limit of detection for this assay is 100 copies/mL.This SARS-CoV-2 test is a real-time RT_PCR test intended for the qualitative detection of nucleic acid from SARS-CoV-2 in a nasopharyngeal swab specimen collected from individuals suspected of COVID-19 by their healthcare provider.This test has not been Food and Drug Administration (FDA) cleared or approved. This is a modified version of an approved Emergency Use Authorization (EUA) and is in the process of review by the FDA. Once authorized by the FDA, the issued EUA will be effective until the declaration that circumstances exist justifying the authorization of the emergency use of in vitro diagnostic tests for detection and/or diagnosis of COVID-19 is terminated under Section 564(b)(2) of the Act or the EUA is revoked under Section 564(g) of the Act.Testing was performed using [employer] SARS-CoV-2 assay.Fact Sheet for Healthcare Providers:[email or web address] SARS-CoV-2 HCP Fact Sheet 51- 948626.pdfFact Sheet for Healthcare Patients:[email or web address] SARS-CoV-2 Patient Fact Sheet EN 51-889883Q2.pdfUrinalysis w/Microscopic + Reflex to [id number] 13:10:47 Test Item Value Reference Range Interpretation Comments Color, UA (test code Yellow = 5778-6) Clarity, UA (test Hazy code = 5767-9) Specific [place], UA 1.030 1.001-1.035 (test code = 5811-5) pH, UA (test code = 6.0 5.0-8.0 5803-2) Protein, UA (test 20 mg/dL Negative A code = 22341-3) Glucose, UA (test Negative Negative code = 365) Ketones, UA (test Negative Negative code = 2514-8) Bilirubin, UA (test Negative Negative code = 75809-7) Blood, UA (test code Negative Negative = 58830-9) Nitrite, UA (test Negative Negative code = 5802-4) Leukocytes, UA (test Negative Negative code = 5799-2) Urobilinogen, UA 0.2 mg/dL 0.2-1.0 (test code = 47246-9) RBC, UA (test code = 0 See_Comment [Autom ated 04457-9) message] The system which generated this result transmit rylee reference range : /HPF. The reference range was not used to interpret this result as normal/abnormal . WBC, UA (test code = 1 See_Comment [Autom ated 5821-4) message] The system which generated this result transmit rylee reference range : /HPF. The reference range was not used to interpret this result as normal/abnormal . Bacteria, UA (test None Seen code = 81796-9) Mucus (test code = Few 8247-9) Squam Epithel, UA <1 See_Comment [Automate d (test code = 87631-3) messag e] The system which generated this result transmit rylee reference range : /HPF. The reference range was not used to interpret this result as normal/abnormal . Crystals, Urine (test None Seen code = 49609-9) Amorphous Crystals Rare (test code = 64114-8) Specimen Source (test code = 2795) DAMIAN (test code = DAMIAN) Injection Molding Machine Offbearer ID - [auto]Injection Molding Machine Offbearer ID - tech Lab Interpretation Abnormal (test code = 16511-4) [facility] Culture 2021-10-11 13:10:47 Test Item Value Reference Range Interpretation Comments Color, UA (test code Yellow = 5778-6) Clarity, UA (test Hazy code = 5767-9) Specific [place], UA 1.030 1.001-1.035 (test code = 5811-5) pH, UA (test code = 6.0 5.0-8.0 5803-2) Protein, UA (test 20 mg/dL Negative A code = 59582-9) Glucose, UA (test Negative Negative code = 365) Ketones, UA (test Negative Negative code = 2514-8) Bilirubin, UA (test Negative Negative code = 63368-0) Blood, UA (test code Negative Negative = 98929-0) Nitrite, UA (test Negative Negative code = 5802-4) Leukocytes, UA (test Negative Negative code = 5799-2) Urobilinogen, UA 0.2 mg/dL 0.2-1.0 (test code = 89136-2) RBC, UA (test code = 0 See_Comment [Autom ated 98796-5) message] The system which generated this result transmit rylee reference range : /HPF. The reference range was not used to interpret this result as normal/abnormal . WBC, UA (test code = 1 See_Comment [Autom ated 5821-4) message] The system which generated this result transmit rylee reference range : /HPF. The reference range was not used to interpret this result as normal/abnormal . Bacteria, UA (test None Seen code = 92872-4) Mucus (test code = Few 8247-9) Squam Epithel, UA <1 See_Comment [Automate d (test code = 82645-9) messag e] The system which generated this result transmit rylee reference range : /HPF. The reference range was not used to interpret this result as normal/abnormal . Crystals, Urine (test None Seen code = 90156-2) Amorphous Crystals Rare (test code = 41091-5) Specimen Source (test code = 2795) DAMIAN (test code = DAMIAN) Injection Molding Machine Offbearer ID - [auto]Injection Molding Machine Offbearer ID - tech Lab Interpretation Abnormal (test code = 12282-7) [facility] 2021-10-11 13:10:47 Test Item Value Reference Range Interpretation Comments Color, UA (test code Yellow = 5778-6) Clarity, UA (test Hazy code = 5767-9) Specific Ros[place], UA 1.030 1.001-1.035 (test code = 5811-5) pH, UA (test code = 6.0 5.0-8.0 5803-2) Protein, UA (test 20 mg/dL Negative A code = 86125-9) Glucose, UA (test Negative Negative code = 365) Ketones, UA (test Negative Negative code = 2514-8) Bilirubin, UA (test Negative Negative code = 45163-6) Blood, UA (test code Negative Negative = 82451-3) Nitrite, UA (test Negative Negative code = 5802-4) Leukocytes, UA (test Negative Negative code = 5799-2) Urobilinogen, UA 0.2 mg/dL 0.2-1.0 (test code = 97157-2) RBC, UA (test code = 0 See_Comment [Autom ated 43725-5) message] The system which generated this result transmit rylee reference range : /HPF. The reference range was not used to interpret this result as normal/abnormal . WBC, UA (test code = 1 See_Comment [Autom ated 5821-4) message] The system which generated this result transmit rylee reference range : /HPF. The reference range was not used to interpret this result as normal/abnormal . Bacteria, UA (test None Seen code = 87101-4) Mucus (test code = Few 8247-9) Squam Epithel, UA <1 See_Comment [Automate d (test code = 07702-9) messag e] The system which generated this result transmit rylee reference range : /HPF. The reference range was not used to interpret this result as normal/abnormal . Crystals, Urine (test None Seen code = 17210-6) Amorphous Crystals Rare (test code = 22513-6) Specimen Source (test code = 2795) DAMIAN (test code = DAMIAN) Injection Molding Machine Offbearer ID - [auto]Injection Molding Machine Offbearer ID - tech Lab Interpretation Abnormal (test code = 89837-1) [facility] Reflex [facility] Culture 2021-10-11 13:10:47 Test Item Value Reference Range Interpretation Comments Color, UA (test code Yellow = 5778-6) Clarity, UA (test Hazy code = 5767-9) Specific Ros[place], UA 1.030 1.001-1.035 (test code = 5811-5) pH, UA (test code = 6.0 5.0-8.0 5803-2) Protein, UA (test 20 mg/dL Negative A code = 77426-0) Glucose, UA (test Negative Negative code = 365) Ketones, UA (test Negative Negative code = 2514-8) Bilirubin, UA (test Negative Negative code = 52851-4) Blood, UA (test code Negative Negative = 74060-9) Nitrite, UA (test Negative Negative code = 5802-4) Leukocytes, UA (test Negative Negative code = 5799-2) Urobilinogen, UA 0.2 mg/dL 0.2-1.0 (test code = 49290-1) RBC, UA (test code = 0 See_Comment [Autom ated 63678-4) message] The system which generated this result transmit rylee reference range : /HPF. The reference range was not used to interpret this result as normal/abnormal . WBC, UA (test code = 1 See_Comment [Autom ated 5821-4) message] The system which generated this result transmit rylee reference range : /HPF. The reference range was not used to interpret this result as normal/abnormal . Bacteria, UA (test None Seen code = 97039-3) Mucus (test code = Few 8247-9) Squam Epithel, UA <1 See_Comment [Automate d (test code = 69042-7) messag e] The system which generated this result transmit rylee reference range : /HPF. The reference range was not used to interpret this result as normal/abnormal . Crystals, Urine (test None Seen code = 93409-0) Amorphous Crystals Rare (test code = 13551-2) Specimen Source (test code = 2795) DAMIAN (test code = DAMIAN) Injection Molding Machine Offbearer ID - [auto]Injection Molding Machine Offbearer ID - tech Lab Interpretation Abnormal (test code = 15346-5) [facility] Reflex [facility] Culture 2021-10-11 13:10:47 Test Item Value Reference Range Interpretation Comments Color, UA (test code Yellow = 5778-6) Clarity, UA (test Hazy code = 5767-9) Specific [place], UA 1.030 1.001-1.035 (test code = 5811-5) pH, UA (test code = 6.0 5.0-8.0 5803-2) Protein, UA (test 20 mg/dL Negative A code = 94901-3) Glucose, UA (test Negative Negative code = 365) Ketones, UA (test Negative Negative code = 2514-8) Bilirubin, UA (test Negative Negative code = 26763-6) Blood, UA (test code Negative Negative = 29847-9) Nitrite, UA (test Negative Negative code = 5802-4) Leukocytes, UA (test Negative Negative code = 5799-2) Urobilinogen, UA 0.2 mg/dL 0.2-1.0 (test code = 60318-2) RBC, UA (test code = 0 See_Comment [Autom ated 29543-3) message] The system which generated this result transmit rylee reference range : /HPF. The reference range was not used to interpret this result as normal/abnormal . WBC, UA (test code = 1 See_Comment [Autom ated 5821-4) message] The system which generated this result transmit rylee reference range : /HPF. The reference range was not used to interpret this result as normal/abnormal . Bacteria, UA (test None Seen code = 37240-3) Mucus (test code = Few 8247-9) Squam Epithel, UA <1 See_Comment [Automate d (test code = 90048-3) messag e] The system which generated this result transmit rylee reference range : /HPF. The reference range was not used to interpret this result as normal/abnormal . Crystals, Urine (test None Seen code = 80956-6) Amorphous Crystals Rare (test code = 06411-0) Specimen Source (test code = 2795) DAMIAN (test code = DAMIAN) Injection Molding Machine Offbearer ID - [auto]Injection Molding Machine Offbearer ID - tech Lab Interpretation Abnormal (test code = 33467-4) [facility] UR[facility] [id number] 13:10:47 Test Item Value Reference Range Interpretation Comments COLOR (BEAKER) (test code = 470) Yellow CLARITY (BEAKER) (test code = 469) Hazy SPECIFIC GRAVITY UA (BEAKER) (test 1.030 1.001-1.035 code = 468) PH UA (BEAKER) (test code = 467) 6.0 5.0-8.0 PROTEIN UA (BEAKER) (test code = 20 mg/dL Negative A 464) GLUCOSE UA (BEAKER) (test code = Negative Negative 365) KETONES UA (BEAKER) (test code = Negative Negative 371) BILIRUBIN UA (BEAKER) (test code = Negative Negative 462) BLOOD UA (BEAKER) (test code = 461) Negative Negative NITRITE UA (BEAKER) (test code = Negative Negative 465) LEUKOCYTE ESTERASE UA (BEAKER) Negative Negative (test code = 466) UROBILINOGEN UA (BEAKER) (test code 0.2 mg/dL 0.2-1.0 = 463) RBC UA (BEAKER) (test code = 519) 0 /HPF WBC UA (BEAKER) (test code = 520) 1 /HPF BACTERIA (BEAKER) (test code = 517) None Seen MUCUS (BEAKER) (test code = 1574) Few SQUAMOUS EPITHELIAL (BEAKER) (test < /HPF code = 516) CRYSTALS, URINE (BEAKER) (test code None Seen = 1521) AMORPHOUS CRYSTALS (BEAKER) (test Rare code = 1584) SOURCE(BEAKER) (test code = 2795) Injection Molding Machine Offbearer ID - [auto]Injection Molding Machine Offbearer ID - [id number] 13:08:23 Test Item Value Reference Range Interpretation Comments PARTIAL THROMBOPLASTIN TIME 38.8 seconds 22.5-36.0 H (BEAKER) (test code = 760) PROTHROMBIN TIME/[id number] 13:07:31 Test Item Value Reference Range Interpretation Comments PROTIME (BEAKER) 13.4 seconds 11.9-14.2 (test code = 759) INR (BEAKER) (test 1.04 See_Comment [Automat ed message] code = 370) The system [employer] generated this result transmitted ref erence range: <=5.90. The reference range was not used to int erpret this result as normal/abnormal . RECOMMENDED COUMADIN/WARFARIN INR THERAPY RANGESSTANDARD DOSE: 2.0 - 3.0 Includes: PROPHYLAXIS for venous thrombosis, systemic embolization; TREATMENT for venous thrombosis and/or pulmonary embolus.HIGH RISK: Target INR is 2.5-3.5 for patients with mechanical heart valves.Oligoclonal [id number] 15:57:57 Test Item Value Reference Interpretation Comments Range Oligoclonal Bands, SEE BELOW ABSENT A The patie nt's CSF CSF (test code = contains mu ltiple 2003114) restriction ban ds that are also presen tin the patient's corre sponding serum sample. W e are unable to defin e whetherthese gammaglobulins are of systemic or intracerebral o rigin. Oligoclonal ban ds are present in the CSF of more than 85% o f patients withcl inically definite multip le sclerosis (MS). To distinguish betweenoligoclo nal bands in the CSF due to a peripheral gamm opathy and oligoclonal bands due to local produc tion in the MENTAL HEALTH CONSULTANT, serum and CSF should be testedsimultane ously. Oligoclonal ban ds can however be obse rved in a variety ofother diseases, e.g., subacute sclerosing panencephalitis , inflammatorypol yneuropat hy, MENTAL HEALTH CONSULTANT lupus, and brain tumors and infa rctions. The clinicalsig nificance of a numerical band count, determin ed by isoelectric foc using,has not been defini tively defined. The da ta should be interpreted inconjunction w ith all pertinent clini jenna and laboratory data for this patient. FINAL RESOLUTION (test code = 20141204) DAMIAN (test code = Performing Lab DAMIAN) [employer] [place] [address] [place] [address] Aguila Kuo MD, PhD, ALEXANDRA Lab Interpretation Abnormal (test code = 04804-7) [facility] [id number] 15:57:57 Test Item Value Reference Interpretation Comments Range Oligoclonal Bands, SEE BELOW ABSENT A The patie nt's CSF CSF (test code = contains mu ltiple 0949050) restriction ban ds that are also presen tin the patient's corre sponding serum sample. W e are unable to defin e whetherthese gammaglobulins are of systemic or intracerebral o rigin. Oligoclonal ban ds are present in the CSF of more than 85% o f patients withcl inically definite multip le sclerosis (MS). To distinguish betweenoligoclo nal bands in the CSF due to a peripheral gamm opathy and oligoclonal bands due to local produc tion in the MENTAL HEALTH CONSULTANT, serum and CSF should be testedsimultane ously. Oligoclonal ban ds can however be obse rved in a variety ofother diseases, e.g., subacute sclerosing panencephalitis , inflammatorypol yneuropat hy, MENTAL HEALTH CONSULTANT lupus, and brain tumors and infa rctions. The clinicalsig nificance of a numerical band count, determin ed by isoelectric foc using,has not been defini tively defined. The da ta should be interpreted inconjunction w ith all pertinent clini jenna and laboratory data for this patient. FINAL RESOLUTION (test code = 20141204) DAMIAN (test code = Performing Lab DAMIAN) [employer] [place] [address] [place] [address] Aguila Kuo MD, PhD, ALEXANDRA Lab Interpretation Abnormal (test code = 68630-6) [facility] [id number] 15:57:57 Test Item Value Reference Interpretation Comments Range Oligoclonal Bands, SEE BELOW ABSENT A The patie nt's CSF CSF (test code = contains mu ltiple 3592331) restriction ban ds that are also presen tin the patient's corre sponding serum sample. W e are unable to defin e whetherthese gammaglobulins are of systemic or intracerebral o rigin. Oligoclonal ban ds are present in the CSF of more than 85% o f patients withcl inically definite multip le sclerosis (MS). To distinguish betweenoligoclo nal bands in the CSF due to a peripheral gamm opathy and oligoclonal bands due to local produc tion in the MENTAL HEALTH CONSULTANT, serum and CSF should be testedsimultane ously. Oligoclonal ban ds can however be obse rved in a variety ofother diseases, e.g., subacute sclerosing panencephalitis , inflammatorypol yneuropat hy, MENTAL HEALTH CONSULTANT lupus, and brain tumors and infa rctions. The clinicalsig nificance of a numerical band count, determin ed by isoelectric foc using,has not been defini tively defined. The da ta should be interpreted inconjunction w ith all pertinent clini jenna and laboratory data for this patient. FINAL RESOLUTION (test code = 8893769) DAMIAN (test code = Performing Lab DAMIAN) [facility] [employer] [facility] [address] [place] [address] Aguila Kuo MD, PhD, ALEXANDRA Lab Interpretation Abnormal (test code = 38030-3) [facility] [id number] 15:57:57 Test Item Value Reference Interpretation Comments Range Oligoclonal Bands, SEE BELOW ABSENT A The patie nt's CSF CSF (test code = contains mu ltiple 7064586) restriction ban ds that are also presen tin the patient's corre sponding serum sample. W e are unable to defin e whetherthese gammaglobulins are of systemic or intracerebral o rigin. Oligoclonal ban ds are present in the CSF of more than 85% o f patients withcl inically definite multip le sclerosis (MS). To distinguish betweenoligoclo nal bands in the CSF due to a peripheral gamm opathy and oligoclonal bands due to local produc tion in the MENTAL HEALTH CONSULTANT, serum and CSF should be testedsimultane ously. Oligoclonal ban ds can however be obse rved in a variety ofother diseases, e.g., subacute sclerosing panencephalitis , inflammatorypol yneuropat hy, MENTAL HEALTH CONSULTANT lupus, and brain tumors and infa rctions. The clinicalsig nificance of a numerical band count, determin ed by isoelectric foc using,has not been defini tively defined. The da ta should be interpreted inconjunction w ith all pertinent clini jenna and laboratory data for this patient. FINAL RESOLUTION (test code = 20141204) DAMIAN (test code = Performing Lab DAMIAN) [employer] [place] [address] [place] [address] Aguila Kuo MD, PhD, ALEXANDRA Lab Interpretation Abnormal (test code = 71628-8) [facility] [id number] 15:57:57 Test Item Value Reference Interpretation Comments Range Oligoclonal Bands, SEE BELOW ABSENT A The patie nt's CSF CSF (test code = contains mu ltiple 9546083) restriction ban ds that are also presen tin the patient's corre sponding serum sample. W e are unable to defin e whetherthese gammaglobulins are of systemic or intracerebral o rigin. Oligoclonal ban ds are present in the CSF of more than 85% o f patients withcl inically definite multip le sclerosis (MS). To distinguish betweenoligoclo nal bands in the CSF due to a peripheral gamm opathy and oligoclonal bands due to local produc tion in the MENTAL HEALTH CONSULTANT, serum and CSF should be testedsimultane ously. Oligoclonal ban ds can however be obse rved in a variety ofother diseases, e.g., subacute sclerosing panencephalitis , inflammatorypol yneuropat hy, MENTAL HEALTH CONSULTANT lupus, and brain tumors and infa rctions. The clinicalsig nificance of a numerical band count, determin ed by isoelectric foc using,has not been defini tively defined. The da ta should be interpreted inconjunction w ith all pertinent clini jenna and laboratory data for this patient. FINAL RESOLUTION (test code = 20141204) DAMIAN (test code = Performing Lab DAMIAN) [employer] [place] [address] [place] [address] Aguila Kuo MD, PhD, ALEXANDRA Lab Interpretation Abnormal (test code = 14644-8) [facility] CenterCT, CTA CORONARY WITH CALCIUM EVAL AND FFR ANALYSIS 2021-10-09 13:18:[address] [facility] CENTERName: JT BRINK : 1955 Sex: MAddendum B eginsREPORT STATUS:A Impression: No additional significant nonvascular findingsare identified. Signed: Genesis Mena MDReport Verified Date/Time: 10/09/2021 13:18:39 Reading [facility] Reading RoomAddendum EndsFINAL REPORT CT coronary angiography, 04-Oct-21 INDICATION: This is a 66 -year old male with concern for coronary artery disease presents for assessment. TECHNIQUE: Spiral acquisition before and during intravenous contrast administrationis a Siemens multidetector CT scanner. Multi-planar 3-D volume-rendering reconstruction was performed using an independent workstation interactively by the interpreting physician as well as the 3-D specialist for optimal visualisation of the coronary anatomy. Consecutive thin slices (< 1mm) were obtained. Please refer to [facility] regarding the medication administered for this examination. Please referto the contrast sheet scanned in the [facility] system for the amount and route of contrast given. This exam was performed according to our departmental dose-optimisation programme, which includes automated exposure control, adjustment of the mA and/or kV according to patient size and/or use of iterative reconstruction technique. Dose modulation, iterative reconstruction, and/or weight based adjustment of the mA/kV was utilized to reduce the radiation dose to as low as reasonably achievable. FINDINGS: VASCULAR: The aortic root is mildly ectatic, and thereafter remainder of the thoracic aorta is normal incourse, caliber, contour. The aortic root measures approximately 3.7 x 3.9 cm with preserved sinotubular junction. Focal calcification is seen in the aortic root, and mild calcification is seen in the descending thoracic aorta with associated noncalcific atherosclerosis present. There is no acute aortic pathology, specifically, there is no dissection, contained rupture, and intramural hematoma. The arch vessel branching pattern is normal; noncalcific atherosclerosis seen at the takeoff of the left subclavian artery. The central pulmonary artery is normal in calibre. The left ventricle is normal in size. Left atrial size is normal. No mitral annular calcification is seen. No aortic valvular calcification is seen. Calcium score and high-resolution, ECG synchronized computed tomography of the heart with attention to the coronary arteries was performed. Coronary calcification was analyzed using the [employer] system software. These are the results of the calcium score evaluation (threshold = 130 HU): LM: = 162 LAD: = 1119 LCX: = 427 RCA: = 15 Agatston: = 1723 Reference ranges for calcium scores are provided as follows (Saldaña Clin Proc 1999; 74: 243-252): 0-10: minimal calcium 11-100: mild calcium 101-400 moderate calcium > 400 significant calcium The calcium score places patient adenopathy percentile for his age group, using the CHRISTIANSON database. The coronary arteries have normal origins. The left main coronary artery arises from the left sinus of Valsalva and give rise to theleft anterior descending of the left circumflex arteries in the normal fashion. The right coronary artery arises from the right sinus of Valsalva. Nonobstructive calcification identified left main coronary artery with only luminal irregularities identified. In the proximal LAD, diffuse calcification is identified, and at one segment, there is also noncalcific atherosclerosis present. The patent lumenis 3 mm2, when compared to a normal looking segment more proximally of approximately 16 mm2, the above with translate to reduction in and 80% reduction in cross-sectional area (translating to more than50% reduction in diameter). In the mid LAD, there is also calcification identified, with mild diffuse disease present. At the juncture of the mid and distal LAD, mixture of calcific and noncalcific atherosclerosis is present, and there could be a moderate lesion at this level. The distal LAD appears to be patent. The first diagonal artery is a tiny calibre vessel is not well assessed though is enhanced by contrast indicating patency. In the takeoff of the second diagonal artery, noncalcific atherosclerosis seen, concern for presence significant lesion. Reference diameter of this artery is approximately 2 mm. The LCx is dominant. The proximal LCx and nonobstructive calcification identified. A high f irst OM branch is seen that is widely patent proximally. The mid LCx is unremarkable. A second OM branch is identified that also appears to be patent. The distal LCx before the takeoff of the PL branchhave noncalcific atherosclerosis identified, with a potential focal stenosis seen. The PDA itself iswidely patent. The right coronary artery has scattered calcific lesion seen proximally. The nondominant vessel. It is small in calibre. The proximal and mid RCA is unremarkable and give rise to the acute marginal branch. NON-VASCULAR: The thyroid gland is unremarkable. The chest wall and mediastinum appears unremarkable. Small lymph nodes are seen in the mediastinum, not enlarged, considered nonspecific in nature. In the lung windows, no endobronchial lesion is seen, and no pleural effusion is identified. A 1 mm noncalcified identified image 45, and a 3 to 4 mm noncalcified nodule is identified at the same level in the left lower lobe at image 44. Limited images of the upper abdomen reveals no acute abnormalities. No acute bony pathology is seen, and degenerative changes is noted diffusely. CONCLUSIONS: 1. Quantitative coronary artery calcium Agatston score of 1723. The calcium score places patient adenopathy percentile for his age group, using the [employer]IAN[employer] database. Moderate calcification is identified in the left main coronary artery. Significant calcification is identified the proximal and mid LAD. There is also moderate calcification identified in the proximal, mid and distal LCx. 2. Normal coronary artery origins. A. Unremarkable left main coronary artery with only luminal irregularities identified due to the presence of calcification. B. The proximal LAD has diffuse calcification identified. At one segment, noncalcific atherosclerosis seen, and is approximately 80% reduction in CROSS-SECTIONAL AREA with patent lumen of 3 sq mm concern for potential significant lesion. At the juncture ofthe mid/distal LAD calcific and noncalcific atherosclerosis identified and may represent a moderate lesion present. C,. Dominant LCx and majority have nonobstructive calcification identified. However, at the distal LCx before the takeoff of the PDA, noncalcific atherosclerosis is seen, potentially could represent a lesion there. D. RCA is small and nondominant. The data will be sent for CT analysis, by an independent third green party vendor. Should the data be accepted for postprocessing, the result would be sent to PACS/enStage when available. According to computer, significant disease is seen beyond the proximal LAD. The mid LAD has a reading of 0.54 and the distal LAD has a reading of less than 0.50. The second diagonal artery is a reading of 0.54. Remainder of the coronary arteries are patent. 3. No acute pulmonary pathology. Small pulmonary nodules are seen, measure up to 4 mm in diameter. Professional society recommendation as follows: 2017 Fleischner Society Recommendations for Multiple Solid Lung Nodules Follow-Up base on size (average of long- and short-axis diameters). Use most suspicious nodule for followup. Nodule Size <6 mm Low-Risk Patient: No routine follow-up Nodule Size <6 mm High-Risk Patient: Optional CT at 12 months 4. Ectasia is seen in the aortic root and remainder of thethoracic aorta is normal in course and calibre. 5. Other findings as described above. 6. An addendumwill be dictated by the [employer] Radiologist regarding the nonvascular findings. THE REPORT WILL ONLY BE CONSIDERED COMPLETE AFTER THE ADDENDUM HAS BEEN DICTATED. Signed: Andrew Crouchangelique Verified Date/Time: 10/05/2021 15:03:55 POCT-GLUCOSE METER 2021-10-05 12:35:33 Test Item Value Reference Range Interpretation Comments POC-GLUCOSE METER 237 mg/dL 70-110 H : TESTED A T [facility] 6720 (BEAKER) (test code = [facility], 1538) [id number]: 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 ID = [id number] for RO DGERS, JAMECA POCT-GLUCOSE [id number] 08:06:01 Test Item Value Reference Range Interpretation Comments POC-GLUCOSE METER 189 mg/dL 70-110 H : TESTED A T [facility] 6720 (BEAKER) (test code = [facility], 1538) 10596: 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 ID = [id number] for RO DGERS, JAMECA [id number] 06:43:38 Test Item Value Reference Range Interpretation Comments MAGNESIUM (BEAKER) (test code = 2.2 mg/dL 1.6-2.6 627) Injection Molding Machine Offbearer ID - AIMEE MBASIC METABOLIC [id number] 06:43:37 Test Item Value Reference Range Interpretation Comments SODIUM (BEAKER) 138 meq/L 136-145 (test code = 381) POTASSIUM (BEAKER) 3.9 meq/L 3.5-5.1 (test code = 379) CHLORIDE (BEAKER) 106 meq/L 98-107 (test code = 382) CO2 (BEAKER) (test 25 meq/L 22-29 code = 355) BLOOD UREA NITROGEN 15 mg/dL 7-21 (BEAKER) (test code = 354) CREATININE (BEAKER) 0.89 mg/dL 0.57-1.25 (test code = 358) GLUCOSE RANDOM 190 mg/dL 70-105 H (BEAKER) (test code = 652) CALCIUM (BEAKER) 9.4 mg/dL 8.4-10.2 (test code = 697) EGFR (BEAKER) (test 85 mL/min/1.73 ESTIMA RYLEE GFR IS code = 1092) sq m NOT ACCURATE CREATININE CLEARANCE IN PREDICTING GLOMERULAR FILTRATION RATE . ESTIMATED GFR I S NOT APPLICABLE FOR DIALYSIS PATIEN TS. Injection Molding Machine Offbearer ID - AIMEE MCBC W/PLT COUNT & AUTO [id number] 06:03:12 Test Item Value Reference Range Interpretation Comments WHITE BLOOD CELL COUNT (BEAKER) 7.0 K/ L 3.5-10.5 (test code = 775) RED BLOOD CELL COUNT (BEAKER) 4.65 M/ L 4.63-6.08 (test code = 761) HEMOGLOBIN (BEAKER) (test code = 13.8 GM/DL 13.7-17.5 410) HEMATOCRIT (BEAKER) (test code = 41.5 % 40.1-51.0 411) MEAN CORPUSCULAR VOLUME (BEAKER) 89.2 fL 79.0-92.2 (test code = 753) MEAN CORPUSCULAR HEMOGLOBIN 29.7 pg 25.7-32.2 (BEAKER) (test code = 751) MEAN CORPUSCULAR HEMOGLOBIN CONC 33.3 GM/DL 32.3-36.5 (BEAKER) (test code = 752) RED CELL DISTRIBUTION WIDTH 11.7 % 11.6-14.4 (BEAKER) (test code = 412) PLATELET COUNT (BEAKER) (test 190 K/CU MM 150-450 code = 756) MEAN PLATELET VOLUME (BEAKER) 10.1 fL 9.4-12.4 (test code = 754) NUCLEATED RED BLOOD CELLS 0 /100 WBC 0-0 (BEAKER) (test code = 413) NEUTROPHILS RELATIVE PERCENT 51 % (BEAKER) (test code = 429) LYMPHOCYTES RELATIVE PERCENT 32 % (BEAKER) (test code = 430) MONOCYTES RELATIVE PERCENT 10 % (BEAKER) (test code = 431) EOSINOPHILS RELATIVE PERCENT 7 % (BEAKER) (test code = 432) BASOPHILS RELATIVE PERCENT 0 % (BEAKER) (test code = 437) NEUTROPHILS ABSOLUTE COUNT 3.58 K/ L 1.78-5.38 (BEAKER) (test code = 670) LYMPHOCYTES ABSOLUTE COUNT 2.22 K/ L 1.32-3.57 (BEAKER) (test code = 414) MONOCYTES ABSOLUTE COUNT (BEAKER) 0.71 K/ L 0.30-0.82 (test code = 415) EOSINOPHILS ABSOLUTE COUNT 0.47 K/ L 0.04-0.54 (BEAKER) (test code = 416) BASOPHILS ABSOLUTE COUNT (BEAKER) 0.02 K/ L 0.01-0.08 (test code = 417) IMMATURE GRANULOCYTES-RELATIVE 0 % 0-1 PERCENT (BEAKER) (test code = 2801) BLOOD [id number] 00:01:08 Test Item Value Reference Range Interpretation Comments CULTURE (BEAKER) (test No growth in 5 days code = 1095) The specimen volume collected for this blood culture was below the optimum (10 mL per bottle or 20 mL total). Use of lower volumes may adversely affect recovery and/or detection times of some organisms.BLOOD [id number] 00:01:08 Test Item Value Reference Range Interpretation Comments CULTURE (BEAKER) (test No growth in 5 days code = 1095) POCT-GLUCOSE [id number] 21:06:06 Test Item Value Reference Range Interpretation Comments POC-GLUCOSE METER 287 mg/dL 70-110 H : TESTED A T [facility] 6720 (BEAKER) (test code = [facility] [place], 1538) 26799: 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 ID = [id number] for Luz Elena hnson, Triwanda POCT-GLUCOSE [id number] 17:46:23 Test Item Value Reference Range Interpretation Comments POC-GLUCOSE METER 209 mg/dL 70-110 H : TESTED A T [facility] 6720 (BEAKER) (test code = [facility], 1538) 71409: 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 ID = [id number] for RO DGERS, PARISAECA POCT-GLUCOSE [id number] 11:56:23 Test Item Value Reference Range Interpretation Comments POC-GLUCOSE METER 186 mg/dL 70-110 H : TESTED A T [facility] 6720 (BEAKER) (test code = [facility], 1538) 25378: 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 ID = [id number] for RO DGERS, PARISAECA POCT-GLUCOSE [id number] 08:32:26 Test Item Value Reference Range Interpretation Comments POC-GLUCOSE METER 169 mg/dL 70-110 H : TESTED A T [facility] 6720 (BEAKER) (test code = [facility], 1538) 41879: 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 ID = [id number] for RO DGERS, PARISAECA [id number] 05:52:47 Test Item Value Reference Range Interpretation Comments MAGNESIUM (BEAKER) (test code = 2.1 mg/dL 1.6-2.6 627) Injection Molding Machine Offbearer ID - BSBASIC METABOLIC [id number] 05:52:46 Test Item Value Reference Range Interpretation Comments SODIUM (BEAKER) 137 meq/L 136-145 (test code = 381) POTASSIUM (BEAKER) 3.7 meq/L 3.5-5.1 (test code = 379) CHLORIDE (BEAKER) 106 meq/L 98-107 (test code = 382) CO2 (BEAKER) (test 22 meq/L 22-29 code = 355) BLOOD UREA NITROGEN 14 mg/dL 7-21 (BEAKER) (test code = 354) CREATININE (BEAKER) 0.77 mg/dL 0.57-1.25 (test code = 358) GLUCOSE RANDOM 186 mg/dL 70-105 H (BEAKER) (test code = 652) CALCIUM (BEAKER) 9.0 mg/dL 8.4-10.2 (test code = 697) EGFR (BEAKER) (test 101 mL/min/1.73 ESTIM ATED GFR IS code = 1092) sq m NOT ACCURATE CREATININE CLEARANCE IN PREDICTING GLOMERULAR FILTRATION RATE . ESTIMATED GFR I S NOT APPLICABLE FOR DIALYSIS PATIEN TS. Injection Molding Machine Offbearer ID - BSCBC W/PLT COUNT & AUTO [id number] 05:14:09 Test Item Value Reference Range Interpretation Comments WHITE BLOOD CELL COUNT (BEAKER) 6.9 K/ L 3.5-10.5 (test code = 775) RED BLOOD CELL COUNT (BEAKER) 4.73 M/ L 4.63-6.08 (test code = 761) HEMOGLOBIN (BEAKER) (test code = 14.1 GM/DL 13.7-17.5 410) HEMATOCRIT (BEAKER) (test code = 42.0 % 40.1-51.0 411) MEAN CORPUSCULAR VOLUME (BEAKER) 88.8 fL 79.0-92.2 (test code = 753) MEAN CORPUSCULAR HEMOGLOBIN 29.8 pg 25.7-32.2 (BEAKER) (test code = 751) MEAN CORPUSCULAR HEMOGLOBIN CONC 33.6 GM/DL 32.3-36.5 (BEAKER) (test code = 752) RED CELL DISTRIBUTION WIDTH 11.6 % 11.6-14.4 (BEAKER) (test code = 412) PLATELET COUNT (BEAKER) (test 188 K/CU MM 150-450 code = 756) MEAN PLATELET VOLUME (BEAKER) 9.8 fL 9.4-12.4 (test code = 754) NUCLEATED RED BLOOD CELLS 0 /100 WBC 0-0 (BEAKER) (test code = 413) NEUTROPHILS RELATIVE PERCENT 48 % (BEAKER) (test code = 429) LYMPHOCYTES RELATIVE PERCENT 35 % (BEAKER) (test code = 430) MONOCYTES RELATIVE PERCENT 10 % (BEAKER) (test code = 431) EOSINOPHILS RELATIVE PERCENT 6 % (BEAKER) (test code = 432) BASOPHILS RELATIVE PERCENT 0 % (BEAKER) (test code = 437) NEUTROPHILS ABSOLUTE COUNT 3.31 K/ L 1.78-5.38 (BEAKER) (test code = 670) LYMPHOCYTES ABSOLUTE COUNT 2.38 K/ L 1.32-3.57 (BEAKER) (test code = 414) MONOCYTES ABSOLUTE COUNT (BEAKER) 0.70 K/ L 0.30-0.82 (test code = 415) EOSINOPHILS ABSOLUTE COUNT 0.43 K/ L 0.04-0.54 (BEAKER) (test code = 416) BASOPHILS ABSOLUTE COUNT (BEAKER) 0.02 K/ L 0.01-0.08 (test code = 417) IMMATURE GRANULOCYTES-RELATIVE 0 % 0-1 PERCENT (BEAKER) (test code = 2801) POCT-GLUCOSE [id number] 22:04:37 Test Item Value Reference Range Interpretation Comments POC-GLUCOSE METER 189 mg/dL 70-110 H : TESTED A T [facility] 6720 (BEAKER) (test code = [facility], 1538) 78070: 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 ID = [id number] for Dipak Hamilton POCT-GLUCOSE [id number] 17:52:32 Test Item Value Reference Range Interpretation Comments POC-GLUCOSE METER 246 mg/dL 70-110 H : TESTED A T [facility] 6720 (BEAKER) (test code = [facility], 1538) 97789: 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 ID = [id number] for Keyla Leola martinez PET/CT, CARDIAC PERF REST AND [id number] 16:10:00Dr. Yuridia Jarrett for exam:->pre-op risk stratification [facility]ENTERName[facility] : 1955 Sex: MFINAL REPORT PROCEDURE: MYOCARDIAL PERFUSION PET IMAGING (Rest/Stress)CPT CODE: 80383 INDICATION: Pre-op evaluation for neurosurgery, obesity BMI=36 CARDIOVASCULAR PROFILE:CAD History: NoneRisk Factors: Hypertension, diabetes, hyperlipidemia, stroke, tobaccoMedications: Amlodipine, atorvastatin, hydralazine, losartan STRESS PROTOCOL:Pharmacologic stress was achieved with a 10-second intravenous infusion of regadenoson 0.4 mg. The radiopharmaceutical was administered 30 seconds after the start of the regadenoson infusion. IMAGING PROTOCOL:Limited low-dose CT imaging was performed for attenuation correction. 40.0 mCi of Rb-82 chloride was injected intravenously at rest, and gated PET images were obtained. Then, 40.0 mCi of Rb- 82 chloride was injected intravenously at peak stress, and gated PET images were obtained. Image quality is good. REST FINDINGS:HR: 71/minBP: 147/70 mmHgPrelim. EKG: Normal sinus rhythm.Perfusion: There is a mild perfusion defect in the apex.Wall Motion: Normal (LVEF 58%).LV Volume: Normal.RV Volume: Normal. STRESS FINDINGS:HR: 96/min (62% of MPHR)BP: 134/64 mmHgPrelim. EKG: No ischemic changes.Symptoms: None (treatment not required).Perfusion: There is a moderate severity, perfusion defect involving the apex and apical inferior.Wall Motion: Normal (LVEF 61%).LV Volume: Not significantly changed from rest. IMPRESSION:1. Abnormal study.2. There is a moderate severity, small size, mostly reversible perfusion defect involving the apex and apical inferior LV.3. Normal resting LVEF, which does not deteriorate with pharmacologic stress.4. Normal extracardiac tracer distribution.5. There is no prior study for comparison. Signed: Casey Pandya MDReport Verified Date/Time: 10/03/2021 16:10:02 POCT- GLUCOSE [id number] 13:00:34 Test Item Value Reference Range Interpretation Comments POC-GLUCOSE METER 239 mg/dL 70-110 H : TESTED A T [facility] 6720 (BEAKER) (test code = [facility] [place], 1538) 03365: 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 ID = [id number] for Geoffrey Gallegos DOUBLE-STRANDED DNA (DSDNA) [id number] 12:20:28 Test Item Value Reference Range Interpretation Comments ANTI-DNA DS (BEAKER) (test code = Negative Negative 1115) [id number] 11:53:05 Test Item Value Reference Range Interpretation Comments Case Report (test code Medical Cytology = 104) Report Case: [id number] Authorizing Provider: Santosh Terrell, Collected: 09/30/2021 01:19 PM Ordering Location: [address] Received: 10/02/2021 03:20 PM Service Pathologist: Maurizio Mead MD Specimen: CSF, tube 1 DIAGNOSIS (test code = [id number] 3220) FuZzEwMzNcZnRuYmpcdWMx IHtccnRmMVxlcGljOTYwMl msueIwPKEghGLwN5Rfsimx EDzqVC8rLT4taChljUGugE BaHFLgYwCoz6zas772cIMh c8hwSBHOjdibzHp6xBqqE8 1un8H6JthvV82cbDUfMWI9 LOKsXNXviIAlQDBbZLK2WR IotSPiR1ugNCDbPB3pyqyb CQrdFQkuXAGbaPR9DDBphN KeJ7DgMJNkAGwyTBAugau4 CuIwFw7yrFMxpYpyYRhgGB UxFUWmJHqpRHKgNoYoJ0VK HOBFW9MESZ0ELAESPXHRKZ ZlD6lPF3RVVD6SHJbypWJs PIIjYI4fUcYRATZNYzZrOl 9SIEVQSVRIRUxJQUwgTUFM TRlJIX6SJIchAQAaFKYhFN FIAJkpFQCkXF9zpfN3PHUd I9QcxWCsKVf1sEUyl7L8sO JiRQZxFTUqi83eE6w1XHSq dNTpt2BxmCimUYF7q1lkmJ YxXHNzdGUxODAwMFxhbnNp BUTsEdxjchajVUAqXYA9vf RxPDEcVZdhGVPtQAmaXd5u iXKgtQhfJjUdWANgm2jhan RSffbgkEw9k5viLKUfJuR5 rTIwMBmfC5jwtdPxjSZkSS MvBSk5sB04MLDqeF2pdGPu YPtnirDdEjO2WDtfKHTzOh J2ISMfaPFvECHiN0sfBJSf PZqiKNHnONkglEXaZIV0eX loa9X8mFXlcTRigThrOtIk YtPzEpYYx9PaTAu5eQwzK9 ZhRDXsRvL4kJXvCSDhJFdx QPIjHGZnehM4bW05FXpiqe Z2eSWzo1Byw66ka968yZ4u hSMaHHW4UWDiJRFkdNUfML CbTPV6VTXlhXXtB0pnTVUd OI8sfkdpCLdqZNqaDRGosP J9DXIrnZUuF9CvKKDxPSep PDAjvcz9MuDfGl3vfWKrnS cvENssp3ber0csuGBtNwz5 MUJoJgLqDhdnRWcug7Wia9 ykITMnvv1pDPV6cWHswMan r3P8jOUmYDPxuLQwYZFrGS 6pkWGmIGRmnZ2qtxplSPNe YnJkcmhlYWRccGdicmRyZm 8ajItvMNY7ITyxA8firL9n EuB6PFrkX0jnlO2oOPx0XF tnBJIdxYN5eaO4DCHvsXAm M4XicH0dEBRsUO8nsxq8u2 xfAZT2NUtgIBHmBlE1iqL4 NDBcaGVhZGVyeTcyMFxmb2 56PUV1BvAiMRIfw8OfZ6Iv jOrkD03giRauA50wVHCiiD xzeH7utYyffX1mMqMmPfNv YPfdlFjyZX9iTBXuX3iibY PdIGRgJQWmU9qmZeAkjX7p xOseWGavnrYmNSJwVyy8DU LqaTVyWQIaXwg0QLDmINGu O55wjbylSQN3nX1zh0vok8 GfDYejRFT2TFGpg35iZEuz gcH6OBtpKb6fWBPmZMn0GL pccGFyfX0= COMMENT (test code = k1yhvYFmQINmjLP8OaQtDR 335) Kuq5fnf2MnySTdaTNsVUex qUMfolKbsh65zNY2tT81VI 0fJHBmEuY6ASTzixN1Ooi4 QALmPPJcgMNtN614k3xao5 wnbvLdfBJ2hPjvVYHnshap RhE9ACxrBVTdyakrNUz3IA teQVClcTA4RQRpuCEsU8Fn JZTmNP2bcva1VDI8RWyuHJ WcZyR8QUYujWRlPBQqqUrn HSsrj498VIK5FwPeXZLgib WatXcwaG1hMwIuILZQfELb l6FyPJxodrKjMBQmSsikbs OrzKDihWJ6jewemdMex0S7 RGViMj72FJFqhCAhsP== CPT Code(s) (test code m2hqrSDcFAVfqRI6KpYePZ = 3354) Hkf0yrj0DyxULqsZYcYBgi lCZfzrGume94uMF0iZ32IM 9xKELgFoJ8XBPmszF1Uhq6 OSVvHTVhaNEwZ919f0vnd6 yiijGqoTI1uVmmIOJuvklq OeR5ZBefRJSlfoczVCd5ZE qeOXWhsLW3RQKmtFQoC8Lc HCKoBV7uied1BFL8HEvsGY DnLiB5INWtqPWcLHMplMht NEbcs154VWE5RbQdMQSksc IyiPkgoS6lEfRzAXR6OPCg OFxwYXJ9 CLINICAL DATA (test q2xrcVTnHPWbrME2EmMqFX code = 3353) Xwr5npp5TujTIuaYQpCJlx jKVqmkDtaw81fAP1nY55RR 7qPJXkTaT5ADLdkdE1Muh5 RSUmAGBrbUQlO261d9akn6 ajgwZntDN9bVdqEXBigapc WuV8IGzsWSTufgeuHHv6KJ cyMLXyvQQ8LCOnmIJzP1Fs TPLfAR4jeod7IBY4WFnnHV JeEiU5UWBjwRXqEGIyjViw MFepb290FON5CyTmFCHojn UaoGfhcA6mDhLiXNUFVNej p5doptwywYTqquMjCu6gUR QdDfObV80jDVN2g9WcGTbE NykiQVwFUDWxkcQuFO7hv4 tdSIDzQGFseaNiHPJ0gmMb ehWBC3ckl7m8fZIis45onT XrboJpOR7xOVUrdafpnqKm wdClfgAjiH9nMSeotpQeEo TwXs59jtWinE9prGL0GCHf xpGrC2F6NLUwvPhhdGLhc5 26rA9xWRS6tk9rUQQsaxQo LIZ5CIJoFIEzhOFaG2ayYt OjACWzw39li85avVrrBBkp IsZgoWWuvI0oVEhqqR2fYR AfJ6CddK9wYCF0yB1yHOSg q6Cgu2BdsvMisjBxxOibg2 3wIGHejp5= SPECIMEN SOURCE (test b5awvKGiKPSfaAB4JrJeQN code = 3377) Dwx7goi0DxpXYifQRqWIgp jXZaygJrfs98pUT8nC93WM 6cARIqLxP4HHVqteU3Ulz9 FLRnJSXxhKPqE447s7rcd3 czktFuvMR9oXttJYUxmswd UtT1FPqsUIDwozsdPGm6OQ yxZGMolFK3TDNjyEIcY1It KIUjZG3iffi5WPR2NMzoOQ UbLeL2ZGEzsJAjABYpbGmo HEima749BYA9MpSkNLFcvi VirVbozB9uTlUkTBBZDFMM FoKXG4RWHsHDDQDDCOaQML dUDIAQB1SFHzMxGDkrLHO5 GROSS DESCRIPTION (test w3ealKLwPOXraRN1RbDzXN code = [id number]) Ygz6kyf8AjkFTtuZCiDXwp aBFmrjPsbh93rVV7aP60YH 7kNDAaBxQ5MIPtjwY7Ycq7 HTIiIATylOSjV235h0ppv2 ukjpSixRQ8gPhrVOUiyjbs NxM6ZSntXHThtddkOSx7CE xzSQBopFR0PTPkcZLcN9Dw XKCvYN5kfny2LBN4HCrdCD GvXfQ7ENKooFCjFIVmqLqz PClfm190XDY9IhAwIJBkgi D0EVdcYJNfI9NqU0HyYYdy QRY8CNGpCVVgAQHyUPAeFO YoVRfdhvV6t7ftOBTfvGCw VNU4NXxxzOTxIOUyLDZlIX xkYiBPVlIgIiAxMTkyNjAx JvK8NTq9ZSZRPwZrLzSwNw eySCz9KhQkXOk2NVh4PPcR XiV7JxW7YkN2WRmdNUPmHM PtUCv2TMMiILzgmPIqDJHl LOLjCCigRGwpT57qaCsonT 8aEhZdXCJLJgQFX6XfJHH5 ZoKoPT3mxRNmCIHoUdJnSi NpTIm7EIRoHqXAUzUaw8am ciBsZXNzIGZsdWlkOyBwcm JhYBAhSWOtTJN1tI7nxFfp nxD8WOLdxNWaOQN8NI8ydG rlQTDqX6YlQ9IdurN5YRXz cn0= MICROSCOPIC DESCRIPTION p4azwKEwVDBlzOU9SfHqLT (test code = 3371) Zfy4jsi7CjyVQrxNIgNOfb lXEucvZysw65iEC3cT80EG 8jOEWmBpS3RPVdgzG2Dgl8 QBPqVVSzbGKgF893d6hlo1 hteiHaiKP8kHfxLQGdgyjv QsL3QVfaIMRsicwnHHl1XP whQROslUN5CDAppTLlG0Lv APHmZQ0gviy5HRN3MBvuZI GkWlZ0SAFfoXRhYDXaqDvx AWmro575OXI1LqNcAUAuwx LotYaxlV9uZvRkVOOZBLIq n2NvZAMgGIzwDLP8 STATEMENT OF ADEQUACY Satisfactory (test code = 2757) Gross assessment was [facility] performed at ([facility], = 2777) Department of Pathology, [address] [place] [address] 737[address], Technical component was [facility] performed at ([facility], = 2771) Department of Pathology, [address] [place] [address] 35077, Professional component [facility] was performed at ([facility], code = 2779) Department of Pathology, [address] [place] [address], [facility]05 Test Item Value Reference Range Interpretation Comments Case Report (test code Medical Cytology = 104) Report Case: [id number] Authorizing Provider: Santosh Terrell, Collected: 09/30/2021 01:19 PM Ordering Location: [address] Received: 10/02/2021 03:20 PM Service Pathologist: Maurizio Mead MD Specimen: CSF, tube 1 DIAGNOSIS (test code = [id number] 3220) FuZzEwMzNcZnRuYmpcdWMx IHtccnRmMVxlcGljOTYwMl thruOxJFVemSKhF2Clnxjq PWbvDU5xCE9jsUgpaGUmuB XcFQSlPaBlj2yod677bIEq s8xmRXNKcdibaMh5aRtkX5 7px3X6CywhW80qwOErVIS8 MGFnSVWleJTeVMJwRVA7MQ TteHTnZ4ijUHCgHK0funzl TPjiARlzSSOhvIC0BSCkgR PlC7SaPZCpLBzsAAWebwc6 LeIyGz2pnKSgjAbaXIxoPJ AiMLUfAJkbAUVwBoAjL2QP GUXAZ0WRWH9OLIEFVANULW FlJ7jWB8HPXY5JJVxkbXYa ZCGdRQ2yCnGWKOFWJaFmWh 9SIEVQSVRIRUxJQUwgTUFM BRhYTH5WXVqaXZJmUDFhRE TXJWsaWQGxQY2akrQ7XMFf V2VebSDsHYh7yKFek7F2mA ZjJVPvTFHul21bT2z8FCSr wMTnd9KnyUwpBDJ8w2snnQ YxXHNzdGUxODAwMFxhbnNp NHLdVbevwpmtKLJoFNQ0nf TuUUZkUAoqFDPhXDwaEr0y cHKemMfvNpPlOQUda3qgax RPyfhkmHp8l4jwWKXhFdO7 lMLiKFzwR2emwxHatUPjIJ KmEFf5cJ37JFUkvA9kbHJp NGdhlhTiLcB1KFuzZGPiVr J5ACRohRGcADTjN0ytFJBv GCfbEZYqPKhqdKDoVVL8yP bwa9N8mZZvrOIhkNluTaLk GrXjBmLOz6ZwWRf3kUteX4 GlADLfRuN1iEJtCUYqZRhj VSQcLJKiwzZ3nS02MLdtha Q7zBGzh5Gqv50qf859nK3q wENyPQJ5JJDvYSXdcEWmAI DuDOL3FALbdWFuR1yuFQOc WU1vjifiTRqqDFzrCFCagQ P4DKHlxBPvC1OnYVNaFOfi WSJflpr1MsJdJi2fzCGnyR yhWBdvh6ggw6xxvIOrAgw1 OBYsCcWcPezzNDtqs6Mbw8 yeVOJndk8lXTK8cPZinUye r2O8mKZaELXkgJQgUHOvDW 3mzZZcVMHaiE7ssabpAFPg YnJkcmhlYWRccGdicmRyZm 0cpLudTCF7MHigM1buiP5u VrB0UUopP1zfpR3xWTt3AW zdYHFakGX0ulE8YAWirZMp B3CvpT2dTYDoRA1ylyg2a3 ohITU9SChvQXVbSuA5jfE6 NDBcaGVhZGVyeTcyMFxmb2 68FSG7NfEyRBVwd0RwW3Aa aBqaV97ulOabF11rVZJicO bqvG6coVcemZ7bCoPuGdFu CMdinGqqPX6iEGVrE3qsyQ EmSJBxQHPjA4szJyWkwD5j jXryUVyspmFqBUOlJgw2SO GebVRsQHYrSdf3ZOQsPHZm L41yvwsbIEG8cK2pk1shk2 AaPHqdUDY7SKSvq65cXXdw bwN6YGpuUb5qRMDeIZn0LO pccGFyfX0= COMMENT (test code = u0bvuLXiJOSihDC4HaHaRC 2079) Dkc8bdn1CwfPBfuBApBZwz mCNcioRtpc77bOH8cT82LM 1uAGVuNuY1CEBeenB7Pwz4 LJLrDOJhbIAzE501k1vrt6 jhdvTogQL6kLdxZNUxahld KxK0SZyfWCNdutolDSo4ZH wpQMLhqUF9RLLabCGcE4Si GQAbJP8doxs3VKI2ZUdfZH LxPgJ2OFTlaLRhFFMqrTla SExkp741PVX2SpNrNVNoyh RlwQosnF7uZxCbAFAEsKHa l0GpORnnjlItCWSbPvprcn UskIXjxWO6omseoeExb2E6 NGHnYb60TUHbyYWvuD== CPT Code(s) (test code h5rgjXAqGWDvzDK3XiVfSL = 3357) Wxi4old3FheNLxeUXnGYsr sBSzvaJfjm60gUX9bU00EC 7tRSDqHuQ8EYEutcS7Ele4 RJJtDWMibULwB119l4uyv9 nfcpKzpPU4cUarFGAkqfpp IxY8AYsoKXAhxjooSNu8RF ybTYFpfFS8PELyxTLyO8Iv ZDTxQD5jcga5TFV5KPzcMZ SkJaK2BXYjjZKbQFMerRzo JIygr671XXI0WwBtSRXahk FrpHmtlP9zAoZpMRK9LKFe OFxwYXJ9 CLINICAL DATA (test k7tpjOCtIVAyiHK0WxFrER code = 3352) Ryh1axz4QwcEUgaHTrKVfc bNWuxcZika31xQE3eY32MN 2cPTEqElX6LBRopjT3Rkt2 TUGkHKVgoMWuF399u3wml6 njmyZkqWT2sFfnAHCzqkeo AdD7GJvbXFTtpcdmXJm3PN exFQNvzVO2LIPmiUSxK1Le ERVaWW7jfkx4GHN6VZxwNH YdOdW7PBKkpRHnMGSoqFwo DIivm017KFQ3OuWeJEWlaf SctLethB6nBuYrMGEYGCwj c9pdbvndoCRdiqLeSv7jKA ZzHtVfT04zMUJ6s6SxWVfK CqwvZOpALSOeypJxQN1te3 vbSUZxTIRsdtTeVQP5hjWg owPAT2ipf4w5tBMvw13pjM FixnQfON9uIQBruklqxsPs ydLfjwSgqV2hIPvtbwJgWk HqLo08ykSrtF3hnER9XDYr blYuQ6L5YJFroBhcfYDlj7 20pK7kTDU3kd8gBWYucgGw JJP7NCRgDTRkxQMnS7ihVa KkTNOyk48jv69lfHhkAIfc ClGtiZDaoC1xKCizvX9cVX KsI5VsoD2oEPS1lZ4qDZBy e2Jxz5MvhgSiphTobQbto9 7dAJJdth9= SPECIMEN SOURCE (test p0qwaZUgVUOjdCM1UbNsTD code = 3377) Yzw8ygi3SmnOSrtBLwHDxh tXNmmzSrpy39pDL9rS69ON 3yZGCwGwG9BGVxghB3Zvz5 WPGbJVMluATcJ122l0ezv6 gvosWwqYP8iFbwULIjjrlv XzC4DVyiXCAdggkjNXw3MC boXMXdvJF9ZWQdvNZeH2Dw SJAlPO6arpz6BGE9WYkrFG HxEvM6AQUxrLHhWLCdlGec CHyjs512WCU7GoXhLGEmxx FxpLahkU0sZoXiZBIFRWOJ LeEXR1DORxPEWKHOHJfOHJ cIZRAUJ9GULxCxNOluAVN3 GROSS DESCRIPTION (test d4lmwEYcXEJgwJE5QgNjHO code = 8414101695) Lyw9wsu4RwoOHznQXeZGny dQWibsLfcc18pHU8nO07EK 2nLHUoSqI2ICPwhyK0Ycg6 YTEtFAKxjLDrZ478q8qbe9 jrlnEvxWA6oSjnBOJmxalq CjA8KOzjOUOnzwawZGr2AG iyOMKanAL7WWDfsMDiC5Sm WNQbCR0vjnn4IJG2GVblQX CuGlY3HTQfzCMnNKXcdQdx VEtrx157XLL9DwLwWNFssc G1DFnkAKNcO9AlC3QfIDcg ALV7IKUmMXYuQAObYTFdRD TiXZguswJ4t1dcABKtyYNh FPT5AXxnyXThQGYtFPEfRP xkYiBPVlIgIiAxMTkyNjAx AeQ4IRu7TUNBJcZjKzBuSf xrSLg1DcXjHWq5HEz1GRrN KzG7LwH6ArG3MJlfMTLgTU FjGTn6HLWcOGlddFAuTTXd FSNvHLmfOHdjL29gnWyetH 8sRmIoQYBMEhSJE2JtYIE2 QiRrRQ2vtBQlXIMgZdHbRm NiTDy0BUPcOqTJCsQdj3qj ciBsZXNzIGZsdWlkOyBwcm QaMKLtMJFrKHK5gR1stVsw nkI4XOXdmQFmDMT6PZ1viS loXZWyJ0BsE5EnaiA5JDXd cn0= MICROSCOPIC DESCRIPTION o6lzmDFiISUiqBW6MqGoTN (test code = 3371) Aem5djo1VxeJAxqOWjRVcw mYNhzxGtbg60oXC5sV84YD 2sVKSfJtO9KHVmjhI4Jtq2 ZJXuIUOcqAGoH477e5uos1 tlzpQuvOY4uBvsOJLssopb IvQ0SBxtEHAuqzpjQVw9VN vtNHWetQH9TPAqaEZdM6Gb ARAzTW7rasp7WQJ3GJvtWK GkMpK6HOQapEQhSULyqNhe CVdpi714FPP1GxIgBWIhpj UlwRmurS1rNvInGQALULCd w1JaSWGrOWsaCGU7 STATEMENT OF ADEQUACY Satisfactory (test code = 2757) Gross assessment was [facility] performed at (test code Medical Center, = 2777) Department of Pathology, [address] [place] [address], [place] [address], Technical component was [facility] performed at (test code [facility] [place], = 2778) Department of Pathology, [address] [place] [id number], Professional component [facility] was performed at ([facility], code = 2779) Department of Pathology, [address] [place] [id number], [facility]05 Test Item Value Reference Range Interpretation Comments Case Report (test code [facility] = 104) Report Case: [id number] Authorizing Provider: Santosh Terrell, Collected: 09/30/2021 01:19 PM Ordering Location: [address] Received: 10/02/2021 03:20 PM Service Pathologist: Maurizio Mead MD Specimen: CSF, tube 1 DIAGNOSIS (test code = w8ttvDZxQAAzf1wbDEJfoP 3220) FuZzEwMzNcZnRuYmpcdWMx IHtccnRmMVxlcGljOTYwMl pxkbIpOWKctAMwP6Ejmehn GSojHF4cZO8xbZlgdMOwpI WtDDAqAfSog8iri430qMGb g9vsQNRNasvzjHa4yLgsK3 9xj6W3YxnuF04khRWyBKC9 RLOiLLJnyDUuBKBzBVU6YE IfyPOhR1rgNYUrAI6ntpsp EOwmZBraHCJiaGU5GMFieE QzS1BjHTNnABqzUTZbelx4 KnYmAz7qvLTxoSziXGuzUR RnEWLeONkoMNTtCuZxQ4SP TPCPD8LVTS7PUPPUIFDOFB KeS2dHE0EPDX0BQXmknWEm FWSqMV1nRyNSVQHCHiBnFj 9SIEVQSVRIRUxJQUwgTUFM EPmFYS6SHFmvFSZgBNNvYP WMOQlaJECjSQ5kaaK6NBVl D1MpxPJbSHw8wEJor6I0sO BdGHSsAFEnk23pG1a2FARv aOYhk3KjgXvfSHY6t7krvI YxXHNzdGUxODAwMFxhbnNp HBUbUuieeelgZUDxVKD6ym RtQBGmTFzfGLToPMsiNx5u gLMtfWytNwSbDIHdw5zmdz QYpvxcnCv7i3wgRWJnWmO1 yYSiUMjbI9dqauEjdVLxYV BeLJc3pU09ACXluB4ddQDs DRgkhwJzSuK9KKfpOOOvIr W7BIWtaTSvRLUmX9jeTXQj HGnuXKUlTWyaoLWwDMA8kK byq7X5aCUetXSkoGugRwEt IcFeOpVRv9DjPUx8mBrwN5 ZnADUrWpQ7uCPiIKLcMPfx CFIkQIHbskE3gM41EDaaaq S0vFBcq9Osf38ga870bX3a nKPmYHN3OSYuCRVxgPHjYT ViEWI4LXOquPSaO5jcGJMb WS9gjvcgARhnRUdbNKRqtO O7NEDzeWWeL1YxMDRpAMgg JZTdblg9KiBmTs8leZZshA ynUQggt8scq3ishFSrMuw0 ZFRoPiWfKrujZAndq9Xru5 eoXWXtlo9zDWP2mWLdfVhe e8F0mCIyGBMsnVBtXVTgYA 6maNTsOQJvdX3tqskpZYRn YnJkcmhlYWRccGdicmRyZm 7ztMwkILR2JFysX5qlkQ7m GrA7ALlpU6cdbT7wQAx2WA vvBPUauID5fhU8ZWOisCYc O9ZvcY4wOUOySS7rdnd4n1 pwJYY0MFcdJYGvLaE1ueR9 NDBcaGVhZGVyeTcyMFxmb2 73SKA2WuInPTVvj7MiR2Gm cLvnO81yfZlvG39kKISfoZ rnbD0lpIwfbH5vMtBhMsPi XKzfrBmfHN8iAYOnB2slsY ZwRQSqPGAiX2uyZvWjpZ0t cEysNYagmbHbQOKrVgq8GU AcnIMfXDKjVih0FZKlGXPy O83pnsgqVKL3qH5ab7ugt9 ToADjqMHD8TGYcs66mVPjn dbO5BIipHb0nHTVnMRd6NB pccGFyfX0= COMMENT (test code = k4ioqRIiNQNdtAB9FaTfMY 3351) Qiw5zhz5BbjPQisLJgUEpi zDIsngUtpk85zWB8sQ94MG 5dIDMfEbC8TKZcreX7Wpp6 SHUgAILszSAcB137a0kle6 asvvSfnKN2zAlpOIPcxysu AwE7DWvzTXHysgxgKMt3VO usUUDpjZZ2RTDbjCHfE9Ay SRCuLM6nhtl0YNL0MZcpVR DpTsG7NKQjvQRdQCPwjNss ACcgs902JHE8PuGxDZJlcu ApyYfxiZ5nQlJoCRBGhDQs b0GwYWetzaVsKAVdPyrwce KhrUEcmOY2cervccFtj0W0 YBFdTr15RVFobKFibU== CPT Code(s) (test code h6lipEXqIWFxgMA8XzFrMH = 8379) Mcj8nub5HtjSJgdIDcDDfv kUAoeqXjnl25bPQ5kA43IP 7fRVRoGrW9UHZgfwD3Hzd3 MXIlRXQdkKDeN401m8ozd2 dwdoKpuKR4zRauXCSchuws QuM0LAsfRPAomnekLMk0NZ cxFDSqoCW0UXHznBAxO4Gg NKLsML7nqai1VJL0NEpaCG ZzAdP3HVVpwUWpIZSzdKio KCrgi376NYW7XfRhVILszc SunVsziC0vGwNrTAF8XPWp OFxwYXJ9 CLINICAL DATA (test q7pcaCToOQAmbPS5DcMhIE code = 3355) Uqk4ppw9OcqTTtfBUuFDpm kYVtnzNqka71zOE3wJ60SY 5jUULzUuC6WHDnpmM8Pxz1 TSWnSTZhdUYsU006p4nfo9 nvknXdbPL3qMzvUKQtnsgo ItD0STxeTKXqctuhZDw5WO xoUNSbbFQ0FJSzdEMtR4Gm XCIkQY2ehez3OIK5ADrqNL CrDgG4ZZTaeCXiJXVweRew JIsao159ORO6WfIpXDUnbk CwpLripU7uFiPgALVHERry m6jdfvttwBAmokRgJo4cPJ YdWuDyI90qCZK0f8KcUCzJ XoiqVEkXMXUyexDkWW1kv4 hhJQWfXNQuylCpLSB6pmPw hiILY0wil8d9kSEdl88siE SjqjJbKH3sTVQyudciwgDl jxGxcrBdbZ7lYSpzejHpJz NzHg69qzJleF2tzAV8UXPc ggDrH0N0JMAxiNewvIDjk4 34lF4uMDB9gf6gHDSdutAd AQL1DXTpXTBqmOZoN0hcOp JtOEGcg18dm33pdUgeABns NyKbyJAswX8yYKmlpC6cUK CyO8LzhJ7xGGX5vA3oPLNl j2Rky0WoptNqsrKkpBugl2 3fSVJwuf7= SPECIMEN SOURCE (test m9asdMDoUIVuxVX3WsZyAC code = 3377) Kqq9rsy5XamAWmbIRmFHwn hPWdkfZbts27pOU7yT33KK 5dQNIaZnJ3RJIromE0Ufd9 EOSaMJZtxOQvO644t7mtx6 whvsZuzOG6gAjpEGRjqwlj FnY2EHxgKFJgadmrEGw1BX aoPJFyfIE6MXIglAPqD8Pw NNUlYX6owkb1YHX5SEhbXS RkUnM0UDHaqFWeCHHaoVuz ODsyy683WJZ7DvZlWONuin UieSsbuP8yFdOgNDMKDUME EnDCN4HHJzRWVBQHTQmHIQ sSXVMSJ5YQNvXrYUtvJRR3 GROSS DESCRIPTION (test z9cmxLZaIBMoqYR3RjSlVV code = [id number]) Mtm7mui8LmhNQnuKCuLJqe bKLllbNdtr29gUW4vI40UZ 8uKQMcDfH3ILIhzwW8Iiq0 OBMqXSHxdLKcO653f7fed5 vdmuOqiBH3bNbqXPMnpcyv JeK8XDvhTSPhngfiYAh6FR krOLZonBV6IQYraMSzQ4Yu WYSkAT7vgjd4KOZ3XUnnMO KyTqI0UHPyoIWgYLCzbNyl CDogs548QTF7PiOkEWHpam H1AKubCZJmV3HpQ1VnVSyy XBH5RXXkFVOfLDIhALAuEL IpZRfwdhE1x1ymICNvoJMo OBG0PIpwkFJqJASiHKIkOP xkYiBPVlIgIiAxMTkyNjAx RuR6SDy0NWZNEiCqAuIsJe bqVRs6VqGjQLy4LOi7IPgN WvB0KvD1SyO7LEbwCRVoDS IiPIu7WUEaTLgokDRgKPFk EYMaCRiwCGpmA55keSufhB 2lMxEhLUTECiNLN5IoTHK8 FqTbZW5ecFBkOZElKoUsYt VlQHd9FUZxPoZLPmAfg4qf ciBsZXNzIGZsdWlkOyBwcm SzSTBsSZFpMQD3nI1nwGen dlT1NFWujVPzSWN9EU2usY isGNSqX0MgL0CdsoX9BLAq cn0= MICROSCOPIC DESCRIPTION l4jmuYAzOJHynLQ1CfDvWW (test code = 3371) Prc5kjt3JzxUPczPBlSVzl xFOcvuVwju47tRY1qM81HX 7pVXOdYzH3VGEyyiW0Bxe4 HLUtBWQirFKmX300z3dyu8 kmkuBddEE7pPokXONccotp MdT3PWreWMSlvbsqIOf1QN erKCXjyTE0GTHmjOWsC4Mk KCKtKM6bwgb0SEN7EKcvRT IfEbT0JEJboQHlGFNncMwe WGenm716LIG1HmZhCNIklc GlaNozlI9pPaKoJOKOHGOj h1OwVZHhMPvzEPF5 STATEMENT OF ADEQUACY Satisfactory (test code = 2757) Gross assessment was [facility] performed at ([facility], = 2777) Department of Pathology, [address] [place] [address], Technical component was [facility] performed at ([facility], = 2778) Department of Pathology, [address] [place] [address], Professional component [facility] was performed at ([facility], code = 2779) Department of Pathology, [address] [place] [address], [facility]05 Test Item Value Reference Range Interpretation Comments Case Report (test code Medical Cytology = 104) Report Case: [id number] Authorizing Provider: Santosh Terrell, Collected: 09/30/2021 01:19 PM Ordering Location: [address] Received: 10/02/2021 03:20 PM Service Pathologist: Maurizio Mead MD Specimen: CSF, tube 1 DIAGNOSIS (test code = w8fscHOrMHOrr2voPTGdsE 3220) FuZzEwMzNcZnRuYmpcdWMx IHtccnRmMVxlcGljOTYwMl aajkGdGWFwbQOpT8Iwhnmo SPwsCD8gZW2rdKwwuMUwyV IcEUXiTdAmr8vfh294fOBb j5jmAGQAfhxlxGp3lEduV3 2ol8W8OxbqW61zyYMfYXX2 MIRqXNYvqZGpPIDaVCV0GD TslWSfF1ytSMKeSE3sypas RJbzLAgqWISqrUC7ARVrmO NsA8NcNNWvNTpaXZZvptx1 AxFbNz7ykUWviYgrJRccKV GxNCPsDQlyBQZgVuZpL1HB LCLBJ5KGEA7KZKWATPHCUJ YwL7eRE9LBZM2STQkqpZTk PKVmMD5cHjPLNGDBGjPoIh 9SIEVQSVRIRUxJQUwgTUFM MMlLRR2SAImqIZRyORVdUG BYZPbxYJSjCU4xodK4FMPw U3DyxXJlDNa7qMTbb7W3wR RnNCCoXPWrd09iM9z7SRUk rPHps3OenMgaCFQ1y4bugW YxXHNzdGUxODAwMFxhbnNp MMClOqhnbtecOFXwNMC5kh EyPTSiOSjzRJAdUDvnLr0f aHMsyJjuThEiUXUzz6hbpx OPfcjncDk2t2azVTEzCwV1 bTNqJGnzW3wspvWosPPlJT ZzUTs5qI52FYHqqS8boMUy OMjohkNqLzE1WKmmJAAnXm V6MEQdvHIvQGFqI1roYEAy PMvyIYKaDZitrBZoFBO9lN bcw8Q8sUVfkKOoiRynGsZu JnBfUqTZq8SqHEr4gForQ9 NhANYaNjV5jQGhCSMqFRtk FKPaAQGpwlF6jI56JNjgvp O5sWUgx6Tej54hs528cE8w nPOpKXW9OSYaGXCheEYsRP EwNAQ3NRMepMOyG6yuCPAq NB8exgndQZcfRWinEYBqgH N6AXIudXSlF7ZjWFJtIPni PYNcoxy9UlTxGa3uyAZaqL diXJpzx8xbx5iqhIMbRfb9 SKNxXpAcRyidUPbys0Sun4 vaJAOtwz7tKEJ0xURiyKof c6Q8uFQjSMVfuEUdUTUoVZ 3ohOAdCWRzdJ5qezofTKLd YnJkcmhlYWRccGdicmRyZm 9umGzcUHB3OProE3itlC6g EjC9ZLcoZ4mduY7xFBm4LI hfUYPvgHQ1rhJ7CTAfmVZu I1JxnW7wKABnNM9cqkj7v3 qiHLJ7PRxcDAPiLsM5thV9 NDBcaGVhZGVyeTcyMFxmb2 96ZGK4BjUpMQFvi4AcG9Pm sVsnR32mvOwrA17mIHWfmZ qzvN1fiHdeoG6jRiZeEoTa QRovuRmqVJ3wXBYgR8axhY EnADFbJPGuJ2fpUiEtaH4g uNewLTzarjUzTHCtUuo9VB YjuEKmVPJjVmb7YRTpEFEv O35ypzgyUSW8vB7gv8ipr4 NaUZtrLYJ6FNVac50dSHjz ckS5VVclFl6wCJXoARc3WO pccGFyfX0= COMMENT (test code = m9wbxBFaQQVwbKO5IxXaLM 0686) Sow0cgf6CyfOHhqCAvTGqb oAMgdyGxkj84lLC1rR50BS 8sXURsRlA3YQJsrrN8Mww9 TJLsUMHgxVPbX770x1xfz9 pzajTkjLY3oZnmCTRpzdsp RiC9ULljWMSlfwftOAd0LW ooNLTnfVM1UCBfzSPlP8Zl RQYvBZ1ssmn4TVA6RYydMY FtAiO6RLHvgADjZSEewTdo HVlor033NXV8LlGvKYTubt BuqVsnwU8eBmLuZSAHhNQs l4VeHYssqzDtXXYjNefaun CqpDJsqHS7efsqiqJtv4Y1 XKWtMc24URRfwIBhbB== CPT Code(s) (test code h1nymTBxNALqfFG8YqKaKD = 3357) Oga5trr5JevMLfnPLvIIco wSKgrhEmzy51tKC3wV67FR 1wCPLmSnP5PIOojgE3Wos2 MQOrCFYioXMeS149q4xto7 jrdbIejHG7rDpcMMJlbkkv IsT2UXwkMKNekwerPWn5EB raJQJpeUC8RUWpzCEmF8Ve REZqVB9wnou1CTX0ZMidOS AgGoI1GMXikFJoSXSimIcv KQcfd717BVR8RuQvTIJmbi AenHpznP0zHeDhNZY2BSHb OFxwYXJ9 CLINICAL DATA (test z2cpxCMpGOUoqKX4OxKyST code = 3355) Ray3gew9FdiSYekSTiEGhd zHVqvhFbei46wUK6tH31MV 0xDJChIfB4VPPtsvV1Dam0 WCGqATGszHSgU746y7vla9 cusxIbrKD0nKwfAXUceobi WaQ0SVijCZPqkifaTYa7ME weKQLbbTQ8VJOxhIMrM2Ts XXFtIT2nken4DJY3OLofAL CnAmP6TGTajZCxDVFmuXrq VRugz147MUD7YkEyFFNpwc FiiHdgpV4cIvPcJRAZFWsw n3csbzmekGPeobDyGv6zHS ElClSbS07dWMQ1r3WnOFkD KejlUVtPFPPpyuPnCO4qb8 nnGBMvHCNvouLjAOA3llBh dpCRJ7lsc6l5qNXxw03dmG XpuiIbEY8fOSMrgfqbyoPu seHazdEqwO6tSHaaudVpKa XmPv47keXzjA0xwRK9COIj lkTlL7W2ACBlkJhhvSMei8 82sQ2bULG9fp1vMIVzeuOo KUK8RFYiFTSbyGVgK6riFl GtREVvz44kx96amVpcXZfl BtXopECybZ5kKCwzvH9rVV CgH6TlaD6zRVP5hH1cDRTe g0Nap8ArjxBbwbEftZwup5 5rOETexy3= SPECIMEN SOURCE (test z0sjhIAvISWuzQE0DaVgCX code = 3377) Uwq8pkz7HsrFSyxKVsAScm hSRdwdFxzc15mYO6eR28UT 2gHBBiOwS8MNKqniD1Bgw7 AYBqBJMrnLSpC089q2mez7 acccVmmNY5hCxsNKNokhun FpQ6JTjlDXWihaxmKDy0DI ifARFqoHY1YJMdiIJlR3Bz WBVbXW8yphe3BJL6MNtiUP LnZnE9BTXkzHLmQUJxtDjv WHhkc604MCY3WuMkHXHooy ItsOlcoT1kCvKpHRCLMIKC MuEWQ8VBSiGXAVWBHAtMQP fZOEGUT9AWVsVoWGwbRJQ3 GROSS DESCRIPTION (test h9aroBGfEFZdkJU4EhJnMJ code = [id number]) Ggh6hsy2JvfGTrjPXxWOwj pEBlymKffk22pFA1lE19GJ 9aIESnCoK2QWXcuwT4Voi8 MVIsAKLjnXFgD359k3vjg4 fuymUxbWT0jPcnCGLwlhks PgE6CJfsXNHsqwlnQCq3DC mfKDCauPR9VZHyrAYsN2Cj FZEqIG9jxpo0GMJ9YRzqOH FsQiD9QXYbdLGhZHFzqYqt DIcdr727QRE9XnDbMZHzwv M2QJyqXEAnZ2SpC2FkIFyk HQZ2CTKvSESjKOFySRYpSO BhQHwitiF4q2gkATLcdZEm ASG0NHkkeSZzDKKoMGKrWA xkYiBPVlIgIiAxMTkyNjAx TdN1GIj2HFNULoZeDxIcHc foFXp0WvAaRVk2YWz3GEnM DsY1BsR8SqU2TWcrSJHhLW KtXZc8ERBtMGgkdGKrKIRy IUPeFEvxVLwvU88cyFmgnZ 6yFzKcPSPFBuNLW0VuBKS2 XsWnSW2lwLGyZUSjHyAsId AxKTy5ZLHwSnECDbRjt9ok ciBsZXNzIGZsdWlkOyBwcm YcYPXjNZDlRNV4wR3jqIjf bsG3KIUeeTFmAWM9JK5viZ ymWOPwZ9BsT4YfgwT3KGWd cn0= MICROSCOPIC DESCRIPTION f9vmhTOnBGCxfWJ1EvMpZH (test code = 3371) Eux7pfa8YnrIWwyRZdNOiv qIDiujNylu60bIQ6mD21AP 8rEUPlUtK5UDHzgbH1Rhb7 ZMTmBTMxkOKkS008q6tkh2 szyhByuKQ7dHwhIAWxhzkq GxE2KPlmAGSwhmrfXNv8HT btJJWhzQD6RPWfdNMiL9Hd ZBAwAE3fnxs8SUU9YQsbJJ OpUgU9VUHgaNCcHZLerYqt ADzkd012AOP5GzCyKEThqc XlbTokrF6qUvOsCJXSFVEw i9XsRIMrSVvdUSG7 STATEMENT OF ADEQUACY Satisfactory (test code = 2757) Gross assessment was [facility] performed at (test code [facility], = 2777) Department of Pathology, [address] [place] [address], Technical component was [facility] at ([facility], = 2778) Department of Pathology, [address] [place] [address], Professional component [facility] was performed at ([facility], code = 2779) Department of Pathology, [address] [place] [address], [facility]05 Test Item Value Reference Range Interpretation Comments Case Report (test code Medical Cytology = 104) Report Case: [id number] Authorizing Provider: Santosh Terrell, Collected: 09/30/2021 01:19 PM Ordering Location: [address] Received: 10/02/2021 03:20 PM Service Pathologist: Maurizio Mead MD Specimen: CSF, tube 1 DIAGNOSIS (test code = z9lveHTkLZRwt4vnYWRvhB 3220) FuZzEwMzNcZnRuYmpcdWMx IHtccnRmMVxlcGljOTYwMl npgsPlIWGigONdL8Rwdksl ZVpdHD9nJM9snTlfuZNixO PeWKNsGuYyq7wiv710gLLt l5beWZUJpabxvXf1qGmyD7 5xg0B5WifnY37bnVGkZBA5 UAIzLKUxxGAoKLQkCJW8TA VkdOUwP6zjASAlXE9siegy HZeuRBfbJQBbxAW7HPVzuC BbF5LjULMsUXooHKMurnd2 JuUfTy2tlVThuMrgDCzoHS SpIKDbXUfwREDzIrGmZ2EY MHKSI9KEVK7GCHUUNQSIWT LoG0mLA9MAWH5BCHzvaTEd PHQtDL8hTtYGWHDUIvFwNl 9SIEVQSVRIRUxJQUwgTUFM NXpWKI2TZGurSGSiRHXpYX SUSPduUARoBD2mvqH0VBXu F2KmtMHcAUt6bNHab7R8wQ UmJUWvBIWyd70cN1p5RPZo yWPqi6ZkjSnjNZD9b9redL YxXHNzdGUxODAwMFxhbnNp CJLjMtjaawmvXOCtYTY5bv XmEATyEPsfKCXpEYqbDi9u pTRouUbgAtGiNRYah0tsas UQrwfmdMy3a0szLUUlHfF3 fRVmGJoeU1hzvvScrQFkCQ EvMAw7gS73DOHjtE2feJBz DLdylsXpWmD5QCvuQZIrEl L4FIUjaNSnFPLeE2zlGDGr CQdfEVVzGEmviQNoFXK2pV wjp2T8gHWidQOfpBamFxGa ZqAzKxPOi1HyYUr5bWccM2 RiLNYtYtM7vGKkNOFdAYer JKKdSMRcskY0tK31MDuget F9rUQvl4Wlt43uu341lW1y dWThALA9IMThUFLljGZbXD LuZNN9QZRyiWEtT2diEIJo DP2wsvihNGunSYljUIYryS O3CRUbqUNqY8DlJVYlLLsh VBIjxte8BiAgBo1qsKFnqG laMElim4ovn0wekTNrOqg0 YQExTsXuRekmXTmat6Ubm7 iwZAArpt4jRNG2iWJsqBpd z7W9uEOmUBBieNBcEWExDU 6zdCMhLJUoqW1bpovmUUPi YnJkcmhlYWRccGdicmRyZm 9xeGxaRJY0LLbgH9djeC8n IgV5BMqwG5qkhR0xFDi0WT dkVKMqjXZ8yrZ3RHPndWSz S1IkpO0kWLVbOE2dlsd0f4 lcLUJ5HGyrBFRjJkI1gjD9 NDBcaGVhZGVyeTcyMFxmb2 27DUP2OdYvDOTue8DoP6Xu oNyyA13vxYovV41lGUBvhA zccQ2doHogxA7eOhYaEqXj EXcwsXyqYK1aINMeN6axfQ NhLRWhPHVfN2auXfIxjN3d tIslDEbpygXxKTDzCxy6MW FbnPHkTGUbPda7LAUfJGGg V89urfhqDGW0nK3fx5hdk3 VcAFxaTJR9BOYnf94kWVqd pxK7QQzkCd8tFOLvVJg4ZG pccGFyfX0= COMMENT (test code = f5fgjBLhFOOifXW8NnTvXT 6257) Nap5ywt9JczUAhnZUwTSpi bJQriuUwan47jZA4rS02SZ 8wREWdUnD1GKTrgxQ7Nuw6 ZWAeUDAeoPHtR658m2uun5 nlreWybQY9wQfvZPKxyako SuG0BDgfSYSujednDIz4GD etYTKuqJC8ILSnfVJrN5Ls MHHxRW2oeqy2VDM5XTyaTZ TjDaC3GZJmaKVyNFKnjRmq OLwrh157SQG7RpDwYFQxfu AvsJhnbR1zYaVsAXDIsIQw m3AuEJzyonHlHSQyScrsvp QdkUEvfOU6irjqzzAqf4Q3 XZViPk12QKFlzIWjbQ== CPT Code(s) (test code x6uooFHdCZTseVE0BjNzIS = 3357) Tvj6ajo7DhgFKrwWZfKRjp bQQvbzBnbx94tXH2uP28IY 5bCXSwJbG6MUUuyiN0Dvz3 BVBmIQIzoIAnK828i1yxa1 wcpfPmrPS7tKyqQBYtfvcr YcK5HCzgITQgfsvcLVs0TF ytGZMbaXY4LQVgtQJxN3Wz YFCxJQ8zqai6GRK5KZceZR BsBcK0OBOurRFsJQCosQvy DSyoh137IMU2ZtOxFTVomw CbzGlwqG7eEsKjGHP1IQRq OFxwYXJ9 CLINICAL DATA (test t6qlkEYzUPDvoRK8TsKpJU code = 3355) Fha2azi0MghWHptRXyIYri sXZoczNfzm43mDE5dW03CI 7qJCWkLiJ8DBMvgfC9Xhv1 KQQcQXHzvLVwC479i2xku1 pwtcZuxBP7zNcnTQBkidfo OsX0PObiVPOpgdanKVv4XS qiDIZooWY6PQNfjUEeS6Lu HJUhZZ6zyae4PNL1BJxnZO CwDsG9ARAxqDVfVAOfySkk CIcyt518OPS1OcDcAOItzo PvfAyshY1iFqXiBCIOIYlx c5tdhicouFNottWeQj0nWO PwHoKdL16nUSF5t0KxVRqM EnozKSbNINGujmZzDL2pu8 nrEAIzTBLlbqOdGWQ2pyPd efXUZ6pew5v7uCKzc15vzB FmplTyMW1yPDXmwmgcslIk nzAvjuPtjK8nMWzzdbXvIl XiRq45tiVnuN4gvTE0AHCx roEqZ2T2RWPsyVbacGEih7 41eZ4nJXC3kf3pAOTlfoBy TVR0CGDuOKJqoSAdJ6gmHw AdFOZoq60mn96vaVbbCMak SvVwoBVeiN1fLGuroM4tKC TqA4EjcS0vYYH0jF1bGHZn b3Epi6HgikUydbEorRfha1 4mIZDzxy0= SPECIMEN SOURCE (test g6yluOUcEGMakGU1BePkRV code = 3377) Ucg8wfn6UfcGZaoJYrCXfy nHEfxbZbbn69jHU1lZ79OM 3gKHIqZyY3AHJbhcG4Rcg8 PABdTHNaqHLdP538b5skr8 qrpiZlzAW3xAybREAbsbdg DuC1XBnxSXFeeotmVHm0ZF ytRJHoaSD5WPTgdVUzY9Ig GAXtET5zorp1ASU9YHacPI BbQjE9RNQnwWNcDBKkkTpi KFfpw446PDD2SmVjXURlbf EukTrndU3hGiCzWAWWXPAU CmJCI4BSGiXHLFVNFZzCPM fYKNAME4COBsHzHJdcPQW5 GROSS DESCRIPTION (test q7uyqHFmVZRsiVC2BkXmUA code = [id number]) Gkt3eln7IlbYRvcHJbWLly jXAbzgItzi68aTI7bU08PS 0tCKLaRvY6GCKixsV9Mmp9 YHMuBFLgbJMfA401c6izf1 tyhdTsrPA2uKpgUWJccdky EcO1EQxpTGQmanctMZw1NB luDLMjcVC0PUWsuUZpI5Dq XCVsMP6rvni8ERH3USozAO HpXnW2WWZtrJGnFETgbUex NVlub528NLB9RnTbXLCmtp L6KBvwVDKfY5OyL8OjDJes HDV8HOKqJJOyPCAmSLCqYB KiXVgsyaN9j3pqQUWjwBIh OKK3AAvmwYOeQWFcMUEhZV xkYiBPVlIgIiAxMTkyNjAx ZzF9INr9WBNSJcRdZsNhQs tlRGz9TdNuYAb0AQj8RWtW PcQ9JfR6QeO5PUrwLNIwQJ JwZUo6JTKoYAmsnRGoNOUp RVUbXNgxYEagB36dzWqasK 4tHkLwDKABDaUZO2UxXHM6 GuHuUO1ccDGgDGZtCgSjNc DjNDo7KNWgHlQCCnAhp4nf ciBsZXNzIGZsdWlkOyBwcm ByUGHkFGIaWIH0wE2eePjf ffZ2CTVwkTRzKCQ7TX1tcD dsTXQkY9WrT6CvplU1XDLr cn0= MICROSCOPIC DESCRIPTION h0trjDUlVPDdxCG2CjYxIA (test code = 3371) Pgk9kqi2MdfSIckLDhIAsg aVTfcjSmaf44jSI4oC71HI 8yZRMfVxC9LTAdzfL4Rrm8 KVLfDDDnbJOoM593o2ncw5 bqadGzgCK8bTypVKJnemsq UwW5GMnlNXOcwgiyDDj0RD vqKQVdaCQ9NVEnoLTuD5Qt SXClQG6cemf2QKF0ACrkBL IfVeB1PPCizLKwUDUjvOqo UPzgq744HOM0ZhIxOQCpju BvjVafcS9iWrDqUQSIVKUd c4MuJKRrTZxuQQX4 STATEMENT OF ADEQUACY Satisfactory (test code = 2757) Gross assessment was [facility] performed at (test code [facility], = 2777) Department of Pathology, [address] [place] [address], Technical component was [facility] performed at (test code [facility], = 2778) Department of Pathology, [address] [place] [address], Professional component [facility] was performed at ([facility], code = 2779) Department of Pathology, [address] [place] [address], [facility] 11:53:05Medical Cytology Report Case: [id number] Authorizing Provider: Santosh Terrell, Collected: 01:19 PM Ordering Location: [address] Received: 10/02/2021 03:20 PM Service Pathologist: Maurizio Mead MD Specimen: CSF, tube 1 CEREBROSPINAL FLUID (CYTOSPINS): - NEGATIVEFOR EPITHELIAL MALIGNANCY Few degenerated cells, lymphocytes and monocytes present Signing Pathologist Direct Phone Line: [phone] signed by Maurizio Mead MD on 10/03/2021 at 11:53 AMPlease also see flow cytometry report [id number] significant for tobacco abuse, HTN, HLD, and DMwho presented to an OSH with complaints of dizziness and imbalance. 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 CSF, tube 1.Received 3 CC color less fluid; prepared 2 cytospins Performed. [facility], Department of Pathology, [address] [place] [address], [facility], [facility] of [facility], [address] [place] [address], [facility], Department of [facility], [address] [place] [address], Ezle [id number] 10:17:50 Test Item Value Reference Range Interpretation Comments Case Report (test code = Flow Cytometry 104) Report Case: [id number] Authorizing Provider: Santosh Terrell, Collected: 09/30/2021 12:40 PM Ordering Location: [address] Received: 10/02/2021 07:33 AM Service Pathologist: Franklyn Fuentes MD Specimen: Other Flow Interpretation (test w2opoXAeTANvtAS9VjEs code = 3364) YTLcw0zoa4GmdETwaZSi BDjicZZiddLzem01zXA1 eY83NI9sLAFzFpA1FXLs qgT3Max7PKKgGUYduUEa P413g0qtg5zalbMfmTV2 yJebLXVsqggrQmX5KOti YBYuquulOUb8ZFspDBHd xLI3PDCtwNPnJ7QkZELw IN1egmd7IPX0FFaeWZWl OlD2ZYZovRIbEJTwiVyh LCile159KOM4LkUgLLFh gpYhbRciwC1gQtCfWSAU FCOIZyTMU6RGAqWRJDVH ISlVDYQFKN0LOKUGBS8D VUOOUTadrXLjSU0cQZSG BQPZXJaOLkBGJM6UGUEM IEJZIExPVyBDRUxMVUxB SzyIUIQKXuWhYS4BRCOV QUJJTElUWVxwYXIgLSBO XgPZGq9KWj0IHSQKKWVS UIxeTK7NWOnWCJoTBsWF DlUQGR1SYVQWOQ9NUOKI UiBJREVOVElGSUVEXHBh gpRqHK9JPWHwK2HLAFCf QRUXCMBLXUGklDPoIR7u P7RZXRTQCB3ZHfTkaZHo fQ== Flow Interpretation l2xktNBvWMAliNF3NcGz Comment (test code = EXNec2ydw2OqyQSpoHNc 3365) SPvbgEVjziSffn01lEL0 rD25OH5dWJPcSsN0WCNq uwM6Qat8PIUiOWHkxYHh E014p7kft6emveImcIC5 HHPhDTSyF2TkUN6mQTBk bEAyT68daQOdELG4FRDp YCXuvXUaCXQkHVV7APCh mSAeQ4kzYJHhGH8efmir KMtnRDzwYFQxzWH3XMKw bRLhO0JkTLGqOZvzSKYx jbu2UnVdFm3tuHUcoZdw MFxwYXJkXHBsYWluXGZz UtFsI3TkQBUgo4dyN4m6 n26ejZU3EG9yUTUfOCLQ H2WgTNPue73alJRbzEXw GISmXFV3cNEdgFGrzDZt TPOcmZRjjSu3sAMhCUKf gIEpKCZ6iCWoRRYai4Dz zcwhMkyiaXH0KnLsY03x qVZhOJovD6OeUVAiL5Ax UYU5LM47peJpD0NfFMgl jbDoN4XuJXIosmPzjUxh HU7kOVzpPlYyTn40oXtw ANMjxM91MIB0wE0tDKHn rOJbmVDFX5tZYqKvK6Mf IHRhcmdldHMgXGNmMCAx MFxjZjEgMCwwMDAgZXZl fqUgZMPlxyQam3I3yZ3x XCFkp8hcD7s9b10oiLQd EgDhqjGauVQuqe9pLDgy TQPfRNl2tH2sSUA3iGYe vjsiIuxziOY9LW5xSCHn ATExmYVlnC0hvuJnijS5 ZqCeTMTqC2KnWHBxa3Cb kxXxqS3eeHqniFnvwmJv VcARDJr1iGAwb6M2wVOc KLxnkIekzl2jo2JiahKs ARLhoeOtuxV3SLthMFcm DX45lZIbPXVaXFalAgLm IqPyjK1imN3tnXXxohQu qhNiAEBmRY53pXCcjUpm ha93VYGifAOawLRmQEZ4 aGljaCBwcmVjbHVkZVxj WiTgn4ezZtCzPZNhm5Nj khJodoUktWZ6aR1lZXUf jgVncX1esO6lAX3fN7d4 VJ1hkBotMQ7qpGQfNXRc AsL0iWXqy9PeuMetGFNu lS2omQ6knmDbKGoulm61 ZINbpFd3SNZdvLMhg7Gj iSHcruH2jVSeVZIWCqMq iX1idJ7vce2dWJUmS75k pYBhYCWnpWZ4iCRpAHH6 GRz8ZZBjq49avIEqN1zq nzxvSPvjcHG1DGEdRQ96 ZWQuXHBhcn0= CPT Code(s) (test code = t4wnvPYoJGZpmPN1NaIx 3357) RHPrr3mjd1RnpQHceLWe XAgdiPTjrwSfla94bFR1 tM86MW4kKFCuRtL3XQZk egJ2Siq6CLNdLYFgxYTh W938f4udn7qlpbTtdTF2 xCbwKKGensupLiC6WRdz VYMwsfydNSt4QZkvUPJf zOE5OTBtbNUnI6VvTEEo PM7pugk9BTV1QXbdTNNd IwU4YJKzfUUxQQAypIph LUmtr458EYL1TzLzDWSi y2A2xxMzAhPaTPTkkAW5 wrA3GNUsJT2wkpbwl5xt YRiyJDpiPEHyaxM5abF3 PSSvgBKwE6FqcT4xZOLp OK6xawgzr7mwSPX6MRxc YXJkXHBsYWluXGZzMjIg ODgxODhccGFyfQ== CLINICAL HISTORY (test e6zobDQlSADeyLT0XoAj code = 3356) LATwv2thk5TqoIEyfCSu HZdcrPUfafQlmw90jYS2 fJ85JK0dFIStUdS0MDJg clP0Zgs7IXZvBJIauEBx M756v9rzb0prkoLmgQK1 mBwyKRTdhklmZbE3HBoe LOKfrmsuXXz9KViuTRHw gEH4MMSqeHEeH7BkHUDn XH7gorb5FYJ4HHuxAMYk RvR9NSDozHBxZKCrlIcj OGewb659RCS5BtLmTJAl jtUjxVnlhW4vVpPlHAC1 DiZ5YOBzRW0nFYNqFEel NYgbmLzfSRK3QECjQQ5s GOpiq4JtCmqkfAD0LLFv aEs2iI7ir0NfTB6zYSTd zPRpFMIbv8TePCVdRdUY pIExgG6aYSHrbtYhkr9e zrahBo8iTQedN0pzxXng JXP5WB83URWhVOEgUPWz bXBvcmFsIGxvYmUgbGVz iX7hKijsRYP4 SPECIMEN SOURCE (test j2hjaXIcMXIyjTE2YdGp code = 3377) FMEpv4yve4EpcFFxuCVw WVunyQBxrdAbzd73qDL7 uA16GS5uZJOoZyO9QXSd evV4Tyu2JGInXVEakIJw B693y5fpo4mkhtSjiRE8 fVhkHQJkycrcCzK5TFlj RQTiivqrMMd5ZGrxKCUv jOC8CXZeaYOcL7MwJTGf BY2gdpj2XAR0WItoUVCi ZgY7TLNsuHYsUBVbnCan TMzvn702ASP4VqBfSHBj yhBdvXwooQ3pHmQnOLEB F8YaaEWqhS== CELLULAR BIOMARKER h7vjzLBgJOSdvZK1HhCo ANALYSIS (test code = WGHxx0isx7YffPKrhNPl 3380) FJwkyOOkeiFgoh30pZZ6 oK63HQ7nVESfEjH8ZNXg yxH5Cda9QRLkCIEnmCHo B261v2ble8nohsEduGP2 GYMtTGBjM3VpIV8oIZTc xLPcM18igPZmCJZ9FOAk IHWvoQZcPBPkXIE3CRRx mCBiJ0duFIFbHZ7schjc BHweGJvvRDKstPG3UESw mHNaQ4KaKGNvZTitDNHk lfc1FdVcDn7ebDUjwFgq MFxwYXJkXHBsYWluXGZz QwXvW9CkHOGIZEclr3Gv NgUuOQ2wODGaGGxkB9G6 Rychc1OvXvJcLN0zFQ5v FHEnEQDUOWuvR5BkMDnb I6TeBIocK9JcRKYVPBZy LCBDRDQsIENENDVccGFy fQ== IMMUNOPHENOTYPIC FINDINGS r9fzlMRlJRAhaEB5GrQa (test code = 3379) URQpg8qze1CmkFTyxUXx YAlmbAHhedYuuz97lUT3 zF19HJ3fKIGvPqD0XDAu luB1Moa5SVVkVLUdfDPi T556o3qnt3wxzaMrdXE5 HYPgVBMlD2YaAA6mHSLp aRAfR33pdZEgUUT2KLIa JIRsoPPaTZGcFEP8JZDe uKOyE8clNZDiAG6qgwji DAobZSbxEAWkyQT5HPZg mKWtT3RsHUSoNUxcSCKy qhe3WhKdSy1jmSWfaWst MFxwYXJkXHBsYWluXGZz SaNiJ7TqSRVnZIMmgTKt TSDxAXTduIo8nXsvQNLl YTV9Se6lHGLkOHHmAV1u flx+CT8ysyUAwB9aEGJi i2LwYDSbrrDhUSLldBJn iiJtFbAxL0SvENS4HZby WZNoS9SjTO1kaJJhFVZw XHFzo6dqj1gzxqhmrN2f dWxhdGlvbnMgYXJlIGlk US80tLYrZCU4NGEovdan IfPymEJtDUKiUKUMwB8w vB5xaNBynxbfCnSnE6r8 ZNXMTBGvQLn4rWSdi5K8 dGVzIGNvbXByaXNlIDM1 PxunRD5xIYFndHUqUFZg bGxzLiBUIGNlbGxzIHNo u9lrKJAGLKV8O0W2RIWq sHnoLL0qFKzoKqXvYd75 LIDsSAKiIX0hMG7egj5h sRSdqEBsGBTibT0eCW2j KNBdIGTjGF9vKAWiPAcp DAAiqVzaQD4qVABJNfQa syKfB9C1QoPzed8pFXGd E5XzbYEdYUPrEXIxfNRr dGVkLlxwYXJcflxwYXIg LKbitO4zGL3dg90aY0w2 vWPgoV6wcHczgUfbcfR6 UYHaDGocMG38hKNrTMTa JpqnA7D2WBKlsdNpsWbr eXUht6UstAHxfeNxkSEv EQS0PQPxw9CzA1IeJMSi tgYfpkWkrGioU6t1HXTn HO7qZY7ezy7wbJJpgaIa wyJxCZF0YLX9SDEsYYNw clx+XHBhciBUaGUgcmVt ROndvC4oUPC7CF28aaCa bmFseXplZCByZXByZXNl onWbbc0pnzypIyurPXFl xUaiGSUkd63mjIUrWSXf vAqmmTkpjRUjS4TieWKe IGFuZCBkZWJyaXMuXHBh cn0= DISCLAIMER (test code = g3nstSMfKECncAC8CcXq 3363) VSFqi1som3UvpGWuqSMx CIeftPFmnnQutj04nQL6 uJ59JU1iFZUdToQ5VQIh qfG2Fhq5BCGzIHGtnLCv I381d5hcn1yxkjAryQH8 iWhmMEVyjkikNxG3VFwq PQSagibcDAh5PBqwEETx zTI0DRZmoMVqB9CwOAKn NJ7rrus2YJR1TFufATTz JkA4ENLavGEiCZKzsHne TLdnd157DCX7ZgClJREe unPhqElofT3mLxVzMwYG dQGeORY9THC2hbD8JYBw XCYorxLfv3CpEEJadwNb yUkbvOIgqMSzWz2ncGOt S6PiQ1kduqZhoKGwqGN7 aWNzIGRldGVybWluZWQg HxbfRjD1jK3xYVX3KvOE jGecR1QfOXQujKVbiJQC WJ46ZMOqVHUuumWoTRsz zUTzBKDiWF9czESqQVQy KJNwYQHvJOUql6HiZOWp py99RFKmLqeykZyyUQRn Sz4pVy9oUIFhcoAqFOZ7 HeHCMO7rjurxqRRnnOuo ng9yDHmaTSSGEGJzTLKv UYU6LEDrxD5tMWS5hXN0 SCR5P5urT0tlJGYweeNg OL1yWOJgsCRkxkRiSVcq PT1igADgQFWkh0Ofyhug SQk2UDYsl5FcBECgs9Og YmUgcmVnYXJkZWQgYXMg hL83VJA3yVldsEnccvIa PM3eSLSaccWxVDWdULPk oQ5qMFbxlpTdROLyyhP3 y7G6HXjwBGZpwhNyWcxp FTH7evGkjaN6hIKbG9ct eojvFBpcEKIqt9DvtG9r zQQZeGFyh2NyoFWwaNWB lGKsBJ8lidMvAZ2hBMU8 ODggKCJDTElBIikgYXMg cXVhbGlmaWVkIHRvIHBl ixHldf6isWnbhE7rv79n kHM3wJN3QSVpgB1uL3Uw JQLtz8NplowvLQTfcx0= Technical component was [facility] performed at (test code = [facility] [place], 2778) Department of Pathology, [address] [place] [address], Professional component [facility] was performed at (test Medical Center, code = 2779) Department of Pathology, [address] [place] [address], [facility] [id number] 10:17:50 Test Item Value Reference Range Interpretation Comments Case Report (test code = Flow Cytometry 104) Report Case: [id number] Authorizing Provider: Santosh Terrell, Collected: 09/30/2021 12:40 PM Ordering Location: [address] Received: 10/02/2021 07:33 AM Service Pathologist: Franklyn Fuentes MD Specimen: Other Flow Interpretation (test f7rfnHMrBPKlpKH9LpGf code = 3364) UTSzg0mkt7YfpXIieVNg IRnhfQGdwqAsqr36hJU8 gR73TB0aXEYwQtB7FHYn ncY7Jnh1BDVvQTMlcXHq J603g0lvj5gfskAtvGX0 uDnlEGRqorjfAzI7XJzi LGMcokgcHGi4UTllBBUw oZQ4MNTrmOTyF2LkMOXy FP8ucli0CKZ3XRzlZVNd CsQ9VUGbxEFvFKPiqRce XMtfb380BDR5EyVhSLWv dlNylOpdtY5oYhAiQDXF ZCNZSlBQI3QYRrIMWGHI OLnNWNJUFU2XPJECIQ1M ABUJHVlkzHLnNP7kTOJW AMYMEIaNJsOHBI9WMELI IEJZIExPVyBDRUxMVUxB NwgLDBZDHoEoYD4OHWDU QUJJTElUWVxwYXIgLSBO AiUNMy4VPm0SOQOFNSET OAkcWC4JTJvJJMeNIrTS FhWLXF3VPOETTQ6AMVOK UiBJREVOVElGSUVEXHBh kbMsSH9MLYIjY8ETIZIq CHPVAWJBMGRegJXqDM2j X7ENJYDPMS9SZoGlxSFc fQ== Flow Interpretation w0hhzZFxPFVxeAV9EpCz Comment (test code = QWSja8lmi1OodULjoVCh 3365) MIoopOFizzQbyp70yYP4 bX48VX6sMEWwAdI4CDIi fwA3Kxw7ULSaFRWkoGHv M325o2dda7qhxoTnkPL5 PGWkSSWlY3TdND8wQGUo dLDeN13qcHMtNUK6JRVv FBIifDEmDNDgFIM8MOEn vALkH6dnHWGeFY8ozsql XSkbVDvwSFSuzZG7VIVk jUIyI8RwAFZrKUbuSDBl qgq4VkAmKv2ocKCvyJzi MFxwYXJkXHBsYWluXGZz HbEaG7HeYPCtz0ihX4k4 y54qtAR8JP5qNJStBCNR V5IkHYBiv29aaQIhuCTk CSRbFDP4vIDdsJVtoDNj MDVmjZPeiEt8mZRtMCRh qJDoZDA4uARlPSVei3Lv amseJvkhqEJ6LuOeA60e pSElILidS2VpYKRxT2Ry HYR9YE59qkLzH8PdBMdq bqLcE2OiVQZyanFxuFaz UZ4yIVstBeOaAp77gGgc BKPcyO21TFV5xK8eXBGx lQQrhYVPW1kYGeCrF8Ji IHRhcmdldHMgXGNmMCAx MFxjZjEgMCwwMDAgZXZl bzLbMEQjqlQfk1O0xU5l FWLqy9hpH5u3o93joOWv MvLfswBbaCSffc1cXEot KTDrQVy7lG7aAXJ8gZDh asruNljpeCA2HA3bNBLf EONywCTypG9grbTqezF0 QtAuAAQcV5NfQKLdz5Ab haBovU2pdRowaXxrziQd BzRDBJw0zHOgp4G0eLTn ABdtuWfjvj5rb1OrnwYo ZTNiipVxmtW5MFjrDDyc JE49pSGxXYGpDJmeSvGf JnMxiM0erN7esCCmvnVb uiZtARGzCU14mPLazAbq lg30RONiuXBxnMSbJHD5 aGljaCBwcmVjbHVkZVxj RbChy3cyUcBrGVPoj9Mc txIsfmDxnSQ2lO6gSZMq czDgiA7kjH4oJA9pS9x2 MH8iuBfmPN3qkUXaGLVw LoT9jZAsx6TrgHttBWPe oW2azK7buhEfFVkfvn15 ISQpyMe5CMIglBJal5Zi vRDfnsX8oWPbLTDBItKs iD5ppT0nbi4eCKYsN34k mHHmIKLiyNA1gZKhAEI9 SJw8QELih81ssLZoV5oy agmzCOcowGW2OFUdZE47 ZWQuXHBhcn0= CPT Code(s) (test code = g3famREbSFMosVV7SaGz 335) NLBga8skw8YxxYRvmPKt AIpdqXGjduEzul71oZD1 yX48QJ3pQWPjXyL5AJDh vsQ6Uyq5SIUuSMXtkOKm C177z6ycn9atulNyiDG3 yVpxVIUfffmmDuJ8FPkt WHJxevojPOw3HFlgHZEa rNA7TKKezNSaL1CzICIp UJ1kqam2KYZ7QFutIQEg FtG0OTVotUUeWVMgcGuh YLiky663PLY3QmKjITNb m0K7oeKkGhVkREKxfQA4 umT3ZJAoCD0hrturd3rk JOayHJqlAQGtxwM0zvO1 QRMjoFWvH0FkuU5mSZPs LD1thhlkl6avPWF1UKwb YXJkXHBsYWluXGZzMjIg ODgxODhccGFyfQ== CLINICAL HISTORY (test h2ogeWUzKWYakTN5LvCy code = 3356) RMNzh7cpy6KjvYWqfFIz IXayvBAqcuXyif46jYZ6 eV31XY9zKOWaPcT5AIRs kyT5Qnz7CCNtUGKicQHj B597y9csw1udkkGtqGZ0 rGqhFBXedwpyRgG9JPua CEGwvnfhLVu2VGlnUSXx kWX0NIIjwMFpX2EzXOHy MT7zrhu3XQL3JKvgJMCu YzE3VJGbyPZrDXRgyVeu RQgmi510YAQ2VoDxLIBn ijJbcRxtoA9zTpUsLVN9 XjU8LBLrFX5hMPMtWVat XCzigNevJZT0AUAdFB0n AInhs9AnCkqqrOD5MREi nZz5dN9lm8QwAB7wQTYt nQYmJLVki1TpBWTtYnXG yWCdsA9fEHLcrbPuev4t zccqLr4dADjwU9aadZgk JKP9XU61MBOqMJJzKHIh bXBvcmFsIGxvYmUgbGVz hT0aBcvvPHH3 SPECIMEN SOURCE (test o7hfjSAhNZVfwOD3XmZf code = 3377) CPBjm3lfr0TbhKCzwXRv ZXxxnCAatiWgku81wIB5 dV07ZD3eLRHkMzO6LGTa smR6Snf6JAKmQMSjnEOh S151y3fjd0mgzkEamLY8 sNceYWPnepuqAxC0ZHsh FGPlylowTOc4RLzzDDFf vGS5CNSayQXsZ5KhJKJo IX5rrao8LIS8PQnpQWJw HgA7JKJwtGBsBBAfzNwt NDpjl810CKU9HqVsXCYv fkTxpNxtjG5oPtGfYBHB B3KniTUuqC== CELLULAR BIOMARKER c0tgqRAhUFLymIU5GqBc ANALYSIS (test code = BZRhz9rqb9GooQRzhGBx 3380) GIfubGUzdsCqui79xGO6 rQ73DF6aEBRdSgM1UIKi dyM4Tqw1RXUvWYOvrKZe S438q6hfs8ozbaMbcJP4 TSWcIIVcU7XfMW5tOIXs fRDyH42jkGXpBWL7ZTXv OHCriPPjIYGjEIH6PRWm cXPsI5saUVShMR0zmkve ZQhcZXcdMIYcdDM8EPYa yKHmE3LaHQQcUPczBIXm gbj6VjSaYi5gzCUhiHcy MFxwYXJkXHBsYWluXGZz GsBgP9VoXBOGOIoib1Zr VlQdLU4gRBWqVVrsH8B2 Aolqd8HvFyYfGA3dCI0v ASFrZRSXFUiwL4OrBHoi D2QrQOchS4CbZKEBXSOy LCBDRDQsIENENDVccGFy fQ== IMMUNOPHENOTYPIC FINDINGS z5bioSUpUGFhlAW6ZcBn (test code = 3379) XGNgt1zsn7FbnYFlcVFn BCzfxSByfmZyfc04yJR2 gE76SQ9kTHHnExE1ANYd peY1Red5AGIcPYDdbNDx V719c2lze8gtebAsrEZ4 TJNvCRAaB8BoQR6gJUHs mIOcP33gjDMxJLZ0PNQc DRBlfMAwOLBxGOK2HYPp jYYoQ7vmLRWhDB0kmnah ZNoaAXxrOPKorEW0FDCf sDTrE1UyRDHbAWbrZNEq rlg9CjOnHp4rkDHugUwd MFxwYXJkXHBsYWluXGZz CfDsV8ZcXIHpGTIcaMBx FZRaXBQvoNn3aXgcTRAo KOI2So4nUVGxARObXM9o flx+NX8ccmUDqN0qIOYd a4CqRULxvfBmSMMjbSIu hqVhMuGpZ0TpXLC0WXhd NOTwB2GtHG9nyPZaEDZu DXOvi8mth0gskvmevV7x dWxhdGlvbnMgYXJlIGlk NP34dCFkXCK5MLBnkgda KyHlbGYtNSHuCSBZdY5z bC1ejYWudqlsUdPhO9r5 DEBPFZDnUBi0aMQuy5E4 dGVzIGNvbXByaXNlIDM1 GuivJW8mDKGgpCWxCBFn bGxzLiBUIGNlbGxzIHNo c5sgCTYIAWR5C4S3XPIg eCrxIJ8yTGevBeRgWe66 RUPoOKZiQF4cRM6wpl3k pSXiePSyJHQkvF9sPT8j ZDDmYKJrRR0oXSVuTLte ZNYlqUjxVY5aNBRQWgGw umLsY2Y3AuSctd0lOYKy R1NswGUxLKBzDWQgeGPd dGVkLlxwYXJcflxwYXIg WQryxU2qWG4jc30zM3i8 gYXflZ0dgWdvgPifxvD2 AHQoCBdjGG28sIWwKXSq PkqrL3A1BGZohqWwzMlp xYIhn1ElnCFxtoWjmTXm OYO9UOCvi9LfL3AxJOLq jdOzxrDwpDqvW4t4YXMu NA8zJE0dru4fcITkdoJl vtHxUYF4LRB7UENzVVTi clx+XHBhciBUaGUgcmVt VGeqgG5sFWD9CC78mqCa bmFseXplZCByZXByZXNl aoBhgk5qbxvhEhdgWUAp wZnrJERvm15moURqXYOu oQpusTsufLSbI5NpjXNu IGFuZCBkZWJyaXMuXHBh cn0= DISCLAIMER (test code = n7bokNApXNIqcCF8ZwHi 3363) EHVth4jso1NxeVCpwURy ONycoCZtueBson46lPD3 sT85UL7rRJAkXtN0HSFt goQ6Vjy0SRDsBXCgnWLp W231a9utq7xsxdKvmBI7 pJtgNDCshukeNhP7LFkc TISqdmgnLBd3XWtcWHEu cTF0KXCbcHIsS5BcJPMu RR3wdoa1TZU7ZVuzULDi ZrE4ZIBukAMkAOQjeGyo VGuqz465ZQK4EsJcBNTg vyRqfNgzoA1oLgRuRgIB jPCoUHH7FFG6zzN2JCLq RBZoluZob8BcHURnypIl zUbxiZNhqSXcUq7uyTSy J6NjU2qhzeDmaSHtxMZ4 aWNzIGRldGVybWluZWQg EkjxRzM3sN8iHGA1YcZM dHxcT8UsKOTppJGvyDWC MJ56WBXjYOYohvSeIRob pSUvHZRdPA8bgAHxSLDy FMIjRZEqJFXtg5QeMFZt pz10ZIDfBdcvaCcsSARv Ht8mJa6hXMKrukDjUTG7 EyQHFO7nybwulQLefNgq oj3fFEukCGSEKCTvTRFr SPM7PAIibQ8gQAC0yWO5 IUA4V6kgH5fgXCAoiyWc TA8pCIPcnOZprmShJKim ZF6imGOeQJMnh2Qgxlbx LFq4NHLnz8VmLGHle4Wl YmUgcmVnYXJkZWQgYXMg eJ08OTG8pRwgwVahbqZf IO0cEQUdxlShLUQcFDYy hP6fJDgqniGmDSShalV4 g6L9ZOwvWIPkeuOfDhvh WWH8fjScrfW1xKEgO2gd jstlKRppDMYic4EbyL4j eBUTjQPsb7UkhEShjBJQ aRFwTU4ldyHfXE1pQSJ7 ODggKCJDTElBIikgYXMg cXVhbGlmaWVkIHRvIHBl oqEgtn1awSuksT5fn33r bLR4qNI8JQJvkV5wQ7Lu VRKlm5HrzgzgHHBzar9= Technical component was [facility] performed at (test code = [facility], 2778) Department of Pathology, [address] [place] [phone], Professional component [facility]. [place]'s was performed at (test [facility] [place], code = 2779) Department of Pathology, [address] [place] [address], [facility] [id number] 10:17:50 Test Item Value Reference Range Interpretation Comments Case Report (test code = Flow Cytometry 104) Report Case: [id number] Authorizing Provider: Santosh Terrell, Collected: 09/30/2021 12:40 PM Ordering Location: [address] Received: 10/02/2021 07:33 AM Service Pathologist: Franklyn Fuentes MD Specimen: Other Flow Interpretation (test x5rnlWDgHAYhiYX1AvEt code = 3364) EGNvp5yxh5ZerZVozWPq RWlveTArojRnwy10hSE2 cH51PM4nEJAoTyN9SIHf nqK3Lno7CMZxQLQrxZEq P769h4tzp2xwszKemVA4 nPjtQZTyswrnHkQ8EPfo AATavhyxLBm5DMceADUt wFK3GMVrhZHjQ6ScWNVa JI3jxjh2ZXM6ZZnbNHIe HtL6PEEfkEUcSRUmnFie NNlja187ZJM0BtRyRGIa upDbtLvqlJ8nQmGdRHSD NNIJIcECZ1OBUcTNLJQK BEvZHPONKK7GKZVLWA6F FNGNOWtrrMGxUJ7cXSVX VPKEWOzBJzQWUL9VUFCI IEJZIExPVyBDRUxMVUxB BuqHJCHCLlTwYR1NXEAJ QUJJTElUWVxwYXIgLSBO XhQFXi7ZTg0EWEXEHENI HWdtVM0NXLrSPPlVXfQG GxMBFA0HNXLZAN1OBRIX UiBJREVOVElGSUVEXHBh acAqBP2WHXGbC6CSSBGs KMSRAOOUEOEuiODhWW6e G9AVPQDTYT2SPzTyjVXg fQ== Flow Interpretation q8nrtGXgFEPgaFG3TkCc Comment (test code = MDTcw2unr4VeiXSkwGFc 336) IQzkdYKwycNcgi85vEK2 vB36SN6zXMMdXjW0NTWd bgE8Jwr4FXUkPQZwnLCy V817s9jva6uvnfXiuVJ2 IMTbGTUcW6IgYK3oHWKe tZDxJ17xpUIqDMQ6RPSb PDZaaIPoCIEeXEM3NYNn jMZbE1syTPVaYO9dgbag QQxlNWuyUQSapDY4BYIa wEWjF5PjMHTyBNldJOMb ijy3RvNrUc8blWWwmFbj MFxwYXJkXHBsYWluXGZz TlXbA1PfZEJyh0krJ3m7 h86icOB4OS1eQNOzCYNE U4WePNAyh90jaJVdcRXn IGHxYZO8eQRgdSPfzVUm SWTkwYRjrMy0hEFaDDKq dOKpTGM8qUVvYNKoq5Gn kylxNhztgCW4QpAmD66b aEReZXxcO2JaYBVmJ9Lv IIW3PF43pfVvS1RhMIpe xiQrC5HmIZFohvVsnAnt HM4uKCwcOgKpDa84tOic QEHsiC23VTO0qT3xBERh aUEnbMTBG6lYTkQuU8Ya IHRhcmdldHMgXGNmMCAx MFxjZjEgMCwwMDAgZXZl toNsJQXtftVso1C3uZ3m CXUco2plR3w9d35zwJFf WuYolkScnFDefu1bISol JALeHXa5rV3yXDJ9kNYc rfqfSlnaeBN7IB6jCICd UVJseLHrnT4znvMhqpI2 DkEuXLWvP0LpYEHuv1Vt xuWrdW3yaDqdrOpezgDo YeJBLBj7vQQaz5B1eBKm YHkonFosph3ld8IptzVo BJUwkcNmeaG9XNdmURgw II31eGChBRNsGEysSrEi BrQpzL0ocG8tmBTznsUy ybRwGDRpBW88yBTsbHot ne64HZGhnWWrqSZeQJB9 aGljaCBwcmVjbHVkZVxj RoXxs0ehIbNoUOHtc4Zb brTouuFkcXS0qS8jSGTh toDsjL5hvW0nRX2nC6t2 VL9saFysTY4tfEPcDFKg DaG9aMHgz8XuiStxZNZp bT2opT5sadCuQRaxoi72 EJIulOa0GODmmCZbb3Bq oDWzxeU6rWNjYOWAZgYn gA3svX7onb2sOFWnU00j vXRyMCWvmFP1nNPdXUI6 TKz0MFUmd54hsRYbE5hq hztaPZawuYH2ZRZxRI65 ZWQuXHBhcn0= CPT Code(s) (test code = l7cniIPyHMFqmHW6JiKy 3350) MEQka8qjg5AicSWogRYc OWoelUFcclNoyw22rVE2 qU84PL9cWFRaUaY4QGZj ffV6Mit5DDZnLDHxvSAj A859f1wwv2vlkgVrtYJ3 lKzkFRYezwkgVtW7HSwt TWIuakmfRCt1DOcgDWTx bLF1OZPlfQNwY1ZfFUNq OD4loyg1XVV4MWcfAUGf VoO8EXXagXEpPEBaqEpy ZCsph687QIT1OaZjTMZj y9X9eaQiCfVbINSqaSE1 tbX5JLQbMR0fuznlq0op NSumQEirGBWvamB8qyU0 WXJjlHXxN7EqrP1bUAJi AG8fbosag0tdCYW2HHvf YXJkXHBsYWluXGZzMjIg ODgxODhccGFyfQ== CLINICAL HISTORY (test t4cnyZIoKPQzsAJ4QaWw code = 3356) QXOcz6gru1BvfUNogHVb ZZbezAMujgKcub82lGS2 cW95SY4vHYPdJxX8ZIWi qgQ5Bss4QFYiDWZpuQKe P498s4ayi3plfwEdrVE6 zZjsRLGqbkoeEpS2PSxu EWAhgvvtFPl7VZrzDKSu kDT4ZCBpfEIsE5BzAZBk CK6rwye4DRX9ULcsXPSf AcR3VEEcuOLuTAWviRqe CAnzb942JHT9AyXvYEDl fvTjnTpncQ2tVnQgJUO5 CjR3ZHDxVX8nHOMqIWfr PYxcoDucHKU3UIPuTW0g OIbnd5JxPblooLX8RGQn eOc2gP2qh2DtNY5zXBRo tCHkGIQhs0QyRTErAhAW aVOyiX5iPKMjzpVtjn3k qwkhIb0hEDsvZ4bhbMiu EAA8MZ25WKGqHYHeIWKs bXBvcmFsIGxvYmUgbGVz iJ2pFizyLKV8 SPECIMEN SOURCE (test h8hkeSSaDDUbjUD7DeGt code = 3377) DPFei5bkl8BrfEGgkMMc QHnjgXNonkBqej52bIW7 zM90ZQ0kGMScOiU6PMCo dxY4Flq1URLfMMPdlTRm F823b8qil3iuosEytUO4 bQziNHNvqdjbHwH9JBxp MIDmdzbtZWv6JTwzCPKf jNX1XKUmpBUlZ0IxDYEx CS2refk8AKI4JJwzUCYr GrC5SBBzaUVvVVPyoUhk KDbbv675RMR1BmBjLGGh mkRicMiokQ2vSvInAWXU V3NayOYjfL== CELLULAR BIOMARKER x0bthFTdGAWxgEP1NwHr ANALYSIS (test code = NTLin1etv0NmbGLheLMs 3380) KJapmPXcczZgux04gIM1 aT29GS7uGLJbVyS8BMXw cyK9Rjj1ELIpQBUvyEAq Y770r9ogz0rnbfXspHH9 VHVvBODyK1VwMQ6dQVEm pSNbF10oqOOgOHC3FSZu MGSmdPCkLLKdTIL7ELSd jGIdM4yhVWQlIP9rtkhc FNgqBBqxFRXwgWN5ARHo yIVdG7JcNPXuFJqwYGQo pbf2UjMpKi8vtXObeLit MFxwYXJkXHBsYWluXGZz ZdKhW4AsAKFHKVzrw8Mk LzDcNM2mWCDyTVkxI9D3 Mnbro0FsEjAkSS4lNR6a LSGpIQLTVHacV9TkHUnr Q1OxHLkfF1QyITMLCFJb LCBDRDQsIENENDVccGFy fQ== IMMUNOPHENOTYPIC FINDINGS n4ghdTCaVRVylAB6WxQw (test code = 3379) IQIbb6qgf9CjcGThxMEr WUucpDQfbaJhbm46oBW5 yW96TJ9oYGYgTrL5XNPi nfW0Osn0GSSaGLPknZKt F735v7bib7hntgTeiLZ3 YTOdEJNiI0DiEX5tJIOs mKQhW92hyXZgRWM1ZLMr XUQxkZOgELFyAPW8FRRe aJPfA3lnXLIhGM2mevty IBnzHRleIUCdfRU7SUMg rHYdL9UyLDXjBJkxRLVf cay7ZjHyAh0eyBCoyEdn MFxwYXJkXHBsYWluXGZz CpRyT3KjDANrKOViyPZg ZFMcEYNxyQi0wOgaVLEp AEZ3Iv0xIUFcVSEgVV4x flx+EP8cciLBnR2hUCCn o0NlBTNwekExXGJmoWJf vxJuViBgH6LzZPX0HCeq QCWkD4PyOJ4ecNMbIGLb UEChp1szv7cpciohwW6v dWxhdGlvbnMgYXJlIGlk QY31zTRuZSP9OYZsbsbl AwFgvRAbAAAbKUFIkP6g rX5zxNSilfreRbDgC5g9 SYJEOCXsYGf1rBBwr2Q1 dGVzIGNvbXByaXNlIDM1 XgovDI0jXLSyrTMiRUXy bGxzLiBUIGNlbGxzIHNo h1biDJDBSQB8J5R1DRHa yDpfQH3zVUyyOfYeLz96 QMErQRLyXN8kGF2rpm9a mEVbmUTpMUFekS0hRP0l BBWjAJCtGC3iQMGnEAns BSQkyLroHN0tUXCQWmRp cbZpF3N1LfRhci4lXKTx T0SxaFYtFYIhXXNijBAb dGVkLlxwYXJcflxwYXIg CJtsnP5mAK1xy29eH2c6 bHSkiU6ixFqufWzqyyF9 CLFcTIheVD61eGEbIEJn JpzcV7E4KPIxrkAavMex fGGfc8VkcCBklnOnqXMi XIG2DDEqb1BvS4ZgDBMg jwUtdtJekMjlU8s7OORu KO8hTM0reh9hpUQdlhDm zsHmIHS9XKC8ZUZjYDCk clx+XHBhciBUaGUgcmVt SPimyZ0qSVL6VI39qsTt bmFseXplZCByZXByZXNl oiXoai4lzkdfDdozDQNe jUmlSHRmb29ylRMrPIVr mVgysFetoNXoY6WxxLNn IGFuZCBkZWJyaXMuXHBh cn0= DISCLAIMER (test code = k9qzpURdUUYnuAB5IxKn 3363) NYLme9dco1SwwHVccVEw DSdthCMujrUhqc72zEB6 tR79EH3dIWUzEuR9MZAp yvW0Esz1LRGlAQVezDEr Q870r7lzs6gcydRbzUC0 bOosJICunhdyXdE1KCnv AWBmefmrXMb7PIwlVYXf sHO2QZEgsGVcQ3XkODDr ZW7ihdt4QPO2VTacXEYf MxK8NVEzsXQgHFDseEcb FPosr180AZY4NaKeNKMs jnVxzJslgW1iEfCwBsZF yUJeRNI3ZOC9ruP6QSPm NOWocyPie7OjTJXaorLi uOrcmKWzfZFwYe4ooURv Q4PgM9clclEvgDNefRI2 aWNzIGRldGVybWluZWQg DqxpFmZ4vW2gYSW4AlLG pNilH1JtGQCmrBKxdSMD TG62ICNgYISvziHdDLru nCQwUXNuAL4wrEGgMVKv IFWwUOWsEHKrp3FqCTGm qu13POSsJqraoOmtZNRy Sx0gRz6mUMRnuqDdPPI0 TgEOUC0xnpqbbSGzhOof cu3tSXjmOCUQKHObXIFr VME5CJCbkB6iNAW1pKK0 BIC8U0ctD8klDQIwkrBq BN0cVDIqwLPompMiHTqg RY3dsXKrKPCpc0Yfrssd ZWz6AQWdw9DpNOQzz2Xa YmUgcmVnYXJkZWQgYXMg rQ22CIY3xIcpqBciejQr NF4zXTMqcmTkQKGgLWCj mU1mQGwahlOxABSsinI9 r2R8MCsePATxqsEzCqol CAD4tnTvsfR4uMWlT8ez lzrlPPtvOALno4KtnB3u vDXXePVyi1VcaONdhQKB lMKoWJ5zzrAdEF9dHKX0 ODggKCJDTElBIikgYXMg cXVhbGlmaWVkIHRvIHBl wgFidv3kqZxrrP1zw78q rYW9vKL3OGQvrD6gY5Nt CZGxw2XjefazYXJhsb7= Technical component was [facility] performed at (test code = [facility] [place], 2778) Department of Pathology, [address] [place] [address], Professional component [facility]'s was performed at ([facility], code = 2779) Department of Pathology, [address] [place] [address], [facility] [id number] 10:17:50 Test Item Value Reference Range Interpretation Comments Case Report (test code = Flow Cytometry 104) Report Case: [id number] Authorizing Provider: Santosh Terrell, Collected: 09/30/2021 12:40 PM Ordering Location: [address] Received: 10/02/2021 07:33 AM Service Pathologist: Franklyn Fuentes MD Specimen: Other Flow Interpretation (test g0pfgXYvFWRpjDD2UzQy code = 3364) LKGgq7xbn5LqsIYcdGQi KAyrzGOnktTblp88xGR9 tK17LD4lRUWfLsC2LJCg zkW0Krz2QIWgJFTboOCj K960g4nmp4ovkxDjoOZ2 rMiePCXwulvsYqP2ISkv ZBLuacppEZd9EXtnCFWl bVX3IRAskRGnV7BbRJYo CK0htca9IWN5WKrqBNNs IiG3FHXvoDMzKVRugOge ZFjhc965OAI2PhVaSOPq jpQudTeweO4xJxLpAMDE OFZRKnHBJ7EELyFHMNGV EVfLKLQZUB9JRMOYOW0X UNIBUBidwKAcGQ9yBBED VCPPXKnNWzOPPI9ZYTWU IEJZIExPVyBDRUxMVUxB JbwAGVNEKsZyLW7ZKTPZ QUJJTElUWVxwYXIgLSBO BiQEMc1ZKw4ZHVTWFLHB NHxqIJ9EVGpMMJjWBxSO LkZYTR2HEWYBYJ1JIQSC UiBJREVOVElGSUVEXHBh xhCyMT3THZOwK5QAOOEf LUYFRQQJXKIiuPKoDM0a O7PSGAVYQQ2RWzYkaNIx fQ== Flow Interpretation l1qbpTLbWSAggRV9FbJl Comment (test code = MUPgd6gtl4RlaZDumYDn 3365) XLwexAZrmaAbbv64wLJ3 kZ85IK7bKUSyTjE9XVGa maA2Qye9VDUsCWYxoDGx L595i6epq1ilzoKmwAS7 MUNpFIZaZ0HvOM6hUXCy iBAsR08ccEBfFRB3UEKe PFEupSXxVLWyWQU4HEJc cNZvN9fwYNUlUQ0lxmod XBgqTFegVRYzrNW3MZPd zNWbI5YxLTEkXPwdEQXe zza7YfYyCs6hdFEkkRhe MFxwYXJkXHBsYWluXGZz AjOvN8TcOMCzz8kyY7m8 x46xqQY4YL6xLRYkSVSH I8IjCEHlh45upXRjkSFw EGUpBPG2hKSoiBKecLPj OFHnzXEtvXb5mAHaRPHr xIHxMWI9vCCiSZDqd1Db lmyyIecvhAJ6ThZuJ18u rQFeWOjuT0AkEGHhP7Lp DEF7XG16lwJmS8XqHTnw vgIjK7EdGJVqenEtpGgm SV4qAYemKrQqHk10aFwa PCLedS17RPE3gC1xQBZt kOGmrZDCA4nTTjAlP7Zu IHRhcmdldHMgXGNmMCAx MFxjZjEgMCwwMDAgZXZl jzIiJLVsebOlb4T4yC8e LKSck6rsI6b4x62srOTr EjCcdpGicAFetb7nEIpx NBPnKDy0rK9yLDT1uXCh yepxZtudoLG8OR2lERSa VDWhyZZwdZ4gptAmbfI6 ToIrDINoB0TbWBUwa8Xa rnJpdD2tmKfldDgpiiBe PgHXUWt2kMMay3L6jZJa TOvcnCztev3ni6QsmuRo NZRqbtFwvnV3NVmnSVmz SS01yEDoKRDaJHpdVeRh AqZedF9qkL3ajYNsnxCa bjKdSVTfRR24nSVoxRjf nj68LWFodOIdxHWySMW2 aGljaCBwcmVjbHVkZVxj XtWfr2xsKmBrKUFgs8Ti mvRdjsBjeVL0mG9pAODg tiHppS6enE0sWW5jQ2q0 AU6liJbuLY5uaXPxPIIt IaZ5sBGtd3MelJroOIYo hG2hoD3yenPpPCbbng60 YBUnzXs2EWKugMFmz2Ju tCAqxcH4nWEeYUVLKvBw cC5gaD4rub4wODUuN13h cVOjEGFfvDQ4gUCtWCP4 MYj6DZSoc04ueRCtI4ac katvREgwuVI4LKPpFB22 ZWQuXHBhcn0= CPT Code(s) (test code = n0bhcRVeGXYwfNB6XiYz 3357) MRTof6pkn2QauDKuzXNn PSbxvOIigyVwvr07rSG0 rX00KO0uUXIhYuX4HMMp zwN4Zdl1ETTrNHQvqGRq Y857k9xry8tdwyHgaWN3 yPnxSNJghbzmZcP9OZwq XDMdtuljXLi8KUnuXFNq tLF4UDDhgBOcA4RrWDUd JD6ifxs7XFN8WZerUMVn XoU2DCTloMWkHVCvtXuh OKgzl028PHN1QwPcDVRo p8W6sxHzIwNwIMAfkTJ8 kkA5RXDgSF8qtlfqm5om NFyyEFejBKFwkoA3bqT5 HTZmcDVqB0VpuA8rYLHk DR6slmhlb7sbCBX6TSew YXJkXHBsYWluXGZzMjIg ODgxODhccGFyfQ== CLINICAL HISTORY (test t7lcpPOrLFPfrUW3OqDk code = 3352) HDLxt2dun7AceYTevPAt DEewyJTigkBnwl52gNN9 lJ65TF1vLJBgVxA3EEKp feM3Lqy2UGDlICPycTYc Z455v8tbr7lyamBhsNV3 fJxoGKYhrkjfLdI5WQhe SFRojupnCXi0TNztMSVm oMS9NHImkIPiP6BiJHNc GX9fakl5DAV0EGccISMa BoL1XRTqnCNrGJIbnMdx QTlvd457TJZ5ZbNgXOHb gtCpeRexvO8dWjRtNIP1 JnR2FPCiIQ6oXTTtWHpi ILailIezKLE5TKAcFZ5r KArfk8KvOzcmgEW6MBSi bEl6vJ7kl4KcJD6sQNId zHBvQHOge7GkXCLkHiNC jNTlpN1mHGDmecTlms1q nxacSe0nDWjwV3olzDgc DXS1BL02TEDvAHTiWEOg bXBvcmFsIGxvYmUgbGVz kM1mJdhsEQC3 SPECIMEN SOURCE (test q2qqqBYwTNUtxQB6UhXh code = 3377) KFYdz2fjl9InrLWuqKQt MNixcLCjooWrbl38tHF5 hA94UB9hKTUdBpP0CXHj jtK8Pgh1DMHxMVSsaEUc H070i3xnx9cpntTdnDL6 eUdrQTKxkvwnMzL1OUek CVFpvskqGSh2XLywLJPh oAU9DFUuqUFsY0HpROUn NN7zunr4HQD5IIrhSYXg ScW0DMOvjSAuUPWpoBhp OOxwo015ZWW3VgWfQRFi jpGgwGkgxW2gLlRgRVQP A8CfvGIcpE== CELLULAR BIOMARKER l0yxlEOaCGAumIM4RjWb ANALYSIS (test code = VJTne6iue9WxlDMfrQNl 3380) NCbxyGCbgwBcrz64hPR0 vT11SO4hRCLtHfQ5XUDf oqG7Nah5FEUzDTHtcZJi C746p1csw4vjawJdrVK6 OTKgXPBzV6AcMD3kREXk gZMkU46gdMNfRVF0QJLy XRPkeGFgYMXdTZN8GQQp uYUgG4wyRBNuOK5kqnkn UXmsCEeePJOpfXH2DHWj vNNmI0OrPEEcKBdwERYc ssk1HdJkYc1jgRDuuNek MFxwYXJkXHBsYWluXGZz RiIpD5YzLTXVNLcpu5Bv ZtXyWC7kEUCpHHbuE2Z4 Pdkrk3IlUoJaKL6pJK6n KTEaTJCCXIntZ7BtKAuf Z4IdHUwyR7DtMSAESJWg LCBDRDQsIENENDVccGFy fQ== IMMUNOPHENOTYPIC FINDINGS w3dgwCNwYOQsyVU9GjTk (test code = 3379) ECZcv4zqc8SahCMvyTIp LQggxAOhjoOpxp01kTM2 zU12KL8gNJGgShX7PBTb ohG4Vcw9EKLtROKwcICt B586i3nsh3pyjrDrxWE4 JYXjZCMqK3QmLC9tPMCj zGWwN35ylGSkPYL9ONGj YQNunXOgGNGkNVJ4ONTz xXGcB1tlOHTfWA5emnth MMwfWDueDZXywEL8BKPv mKVoU7EdQRJwLIunNEKe mac7AzOmIp9gbXMyyZrx MFxwYXJkXHBsYWluXGZz HkLfX0XaWGLdOVRgxXEj WHSmXLZvcYp9cTomKBIz EUM7Zg7fBJLkMBDhPX8l flx+KV8jzsPApX2yCPOi o8JeCQLflrIrPHTfmIXw doAqQbOwC1FwUHP4RCsq ZOVsE9AzLE6tcSQeYGQv BXXmc8phz0mjjceaiS3o dWxhdGlvbnMgYXJlIGlk VO11pGEaCLG8OFJauuvp TwYosDGbMVIlCPQPhC1s yI3fnUVnbqlcOtMbA9z1 UNCRYASrYSl6dOSaz3O9 dGVzIGNvbXByaXNlIDM1 LkqqDA5qFNCnfAMmCRGw bGxzLiBUIGNlbGxzIHNo m9kaHKGSQET4S2Z4STJh iMufKF4kEXofJrEqPt15 UEDpQAXpRD9xES8rnf0w aZQxrQVpLPIteX1xOL3y UKLvFPRlKO6aSRAsIPps IMUakEljOH2qXOKFGyIb lrWhM6A9YwItqm1sDXTv H7ZdbDYiZHXkOPRfmNHk dGVkLlxwYXJcflxwYXIg LAphfZ0yFG1jy41yO1r5 cWSrqH0vwYpwySnrmdM5 JXAxXIpgYL00eHVoTOBp IohoT4U1GHLdiuFjfHke tXJkx0PhiAXxivGsbBYl MSF0DWPgw7JsP6RpBVMz zmOsmzMkcYuqH7n7VEWi ZH3dKL3ehz8vdLJmavZr bnHyEPD4MSY4ZKXiQOGe clx+XHBhciBUaGUgcmVt SYapoV1nIGI3DE79jtIu bmFseXplZCByZXByZXNl fvQumf4nuuxbLtibLECq eVhcVCIop00aqHRdFTXk ySlwkRqpmMIiH8YynVDv IGFuZCBkZWJyaXMuXHBh cn0= DISCLAIMER (test code = g1lbnLIoDCIoeRW7NxSc 3363) QIUvm3ooj4DfiAJbzCZw DEtyiHLdpdEepc45aDV6 mS47ZL0aDSGnGiY4JSMd foE8Vsw9GKUzOBCoxZGk B617w4gqk1recnMksUM7 tRudIPPioiabTcN0IMvx OWWazsnxZWu2UUxlLQYb bAB8KQEpmZMhX0DfOGWn XC0sxhn9LMJ3RIerHIRz KnY5SAXzrZOdDXEzgHkp AOqpd875SGV4OhZfVFWs lfFvmHvhtD4cXuCyQoUF qCLoCNC5TFK3hmY7FLIr IJMevoLtc7UpNSVonqUu nQzliYDyqGRmQh1diSPt A9XzK0qmzhWdeXBgdFR9 aWNzIGRldGVybWluZWQg TnxeSlO5mZ8cTMA7WgTY cZjsA3WaTAKmbSSwvRQZ BL81CCTwMCPzxwRqKYuy gDCdYJXbVQ0qiGMmHBFz LXReXRPiZNElk2WgVLWd sl19CIJnAtaopQnxHQXf Ui2qTd1pDLJkkjAtQBO9 KpTLYA9xahdkyTEkcRes br2zAUusAPDSXRUhKNQa SOV2ELKgmM5nNCX1mZF0 FSG7Y6npG7diBZQtkaOi HB1iTQXzqHTakuHsULhg GF3awAOoPUDta7Udrbuc IWc0JISil1WiLGDnm5Pd YmUgcmVnYXJkZWQgYXMg jN76GUR4uEnqyKydjwCf TU1cOALaooStTFYpULLo jZ9tKQshjnVoGUNlpiN6 m8E9WZxqYVTbswLsThag TOT5saBqnnC1rDIyE2ik pucoCWqoMEHim6MmyD0u fLJOlKPhi8MzwSQrkMFU yFErRZ6vshAwPV7kUML0 ODggKCJDTElBIikgYXMg cXVhbGlmaWVkIHRvIHBl rdWxef2exCzztR8vl11c nBE1gCQ6KKUluI1kY8Mi CVAfw7ProuctBYRsga6= Technical component was [facility] performed at (test code = [facility] [place], 2778) Department of Pathology, [address] [place] [address], Professional component [facility] was performed at ([facility], code = 2779) Department of Pathology, [address] [place] [address], [facility] [id number] 10:17:50 Test Item Value Reference Range Interpretation Comments Case Report (test code = Flow Cytometry 104) Report Case: [id number] Authorizing Provider: Santosh Terrell, Collected: 09/30/2021 12:40 PM Ordering Location: [address] Received: 10/02/2021 07:33 AM Service Pathologist: Franklyn Fuentes MD Specimen: Other Flow Interpretation (test f4wckMKuHWHpfUI7VfBi code = 3364) WNAvd9szi0TbfYAwrVUo RFcohUXglnRnqe59hJG5 pA56FC9xAPVkMyH4KONl thA6Ocg1YZSaWBCdjHOy U118e2sfw9ukiwFxaGP7 lJxcAHSfhpfuFsC9IZqb DPXornhfOWv3KXxhMVHc tSR4BNLdpJTzC4VwGEZr YH7lajw1BSJ1FYfqVWDp CwY7RABqmCZwTQQzfCbw GSnsl597DFM2IzZuUOTf qoKurKozzP1vWfQsEXUG RTGYBdCBC7JDQaUBBHIM ZPkCUAWDRB7DDQJMWQ4I ZMPRGDjihDArAO3fJNOB SNNPQRmMXeEOMD8CNDGG IEJZIExPVyBDRUxMVUxB DybGYFBCBrKyNI4CIDBZ QUJJTElUWVxwYXIgLSBO VfHVGs3FYg6IAHRRWPMP MSqzFF4CIVvBFZdCHcKE DbGXSA9LVOFJTN6IQUDB UiBJREVOVElGSUVEXHBh euIwNR3WNPLgI4FHFHBq YXVRPZXNHHWocWRbRI1p U7FXLXLMNV3AQaLzxDDb fQ== Flow Interpretation b8jwtOLnYWJbrFP6CmLc Comment (test code = JVFfd0wlc8VerSRtqWJa 3365) WMrgeFOnikLbbs00aCQ5 fZ28AO5qOWPmImF1ORRs abE6Kpo2PNEdDZQsuBAa O867d2enn1wvcgAmoVP5 NWWlPCDrE7AcPH0yJNWa lLZaD82bmTCeXGC6ZZAi UTRjcTGeTYAqHUY7TQKx jMNyQ9olBOHbOW7iekff QDyvMUfeEFNcoVR7LZQb pCOvP8PhPYThMUciSHTw zoz3AvMfBd0kcEJrtNwa MFxwYXJkXHBsYWluXGZz MfReE7JxNZChn7jfC8e9 k96viBI3FC0hSTSdBPFF R5CnQXAuk46weNJcgUEt JKWyGTX7aMKprPIvjVUw WCPtxSYkzJe3gFEhXONn qLShACE9nSDuAPIxf2Sm iyrwOitusYW1IaBqD18y vSGyGXjdJ9UiQUVzN0Sk UGV5CZ92cuQmN7PiEOep yoEyL6FuBVOnkuCphSlo EJ4oEJdcZgDjIy18nOoy NVEtmX47NEM1tD5ePGYy tHBslKGJY8gPDwQbR1Nh IHRhcmdldHMgXGNmMCAx MFxjZjEgMCwwMDAgZXZl cwZqHWQkwbPru4I9qO1h ZGBhh0rpV7l9e64tzCBu DpQkenCvkAJmzv3sCSjy WRTsWOq5pJ7fELH6hGMn gojfWntbjXP5FM6yHWCk QRYgpAZbhN0wvmGghmB5 EdCuBWZmV3SnHIDlq4Vj rwZkbD1fuOofvRjpmmTt HdWXVWc9rUXqz2P7kMLj BJqrzJfduc2cn3YkjuSt HWGrgyZyzsW5EUnmIEhu LV65lSRuEGGaUEkyUqCb DvQwlI2wuN8veCAopjYf dvMaKQZnOA07dRWzfFen hp52HBBrlMMsiTRcIFO6 aGljaCBwcmVjbHVkZVxj DmDkr0qfQcBfUXRsn6Ze cbEgrfGcpUB7zX3zGJHd cjMpfK9npQ2zOV1jL0t2 CL4hsFflLQ9gmJDxCQXq LoV5aHHex6EcmDuoJBSs mD1svG7bxkJlJDifri92 HMRblQu7DVXwiCRsz5Ag dBHympY1fUXoDKNDJxJt tJ0yqQ4zwv1aCGWpY46c lNHuGTWntYT4tPLqBCI9 YBm2FRRzy88haEDaC0hq wchgGPfddGA6CQMlZL43 ZWQuXHBhcn0= CPT Code(s) (test code = y2rnrEJoRCUptVO8HbPs 3357) FVQje1agn9DtfSFloBMy HFwfdMIqinWfmw96uWK4 vZ25HB7kRKVlGlP1GOCh kjS4Kpz8ECLyXMTfdPIh W670u2jzh5zosuKbkEW0 uIsbLYIdwsbvYuI8DLmn BFFruhsoXLo4KCtdBEUx wWG1AJPuvFZbJ4RcGAWg SG1ymfl7DNR3IPysBYJu FnG1ZUJgbKLhNRWxrIox TIxxz529HCJ9HaKiKVWv j1S7pjDeMcEjMIGbsXE3 jzI0JCErNS3dlcrrm3wb SRulZOqjSJFlozM3soZ5 RIRftBJbG7PfpG5hXURr QG5zmnmtd9kpKLR5NOyd YXJkXHBsYWluXGZzMjIg ODgxODhccGFyfQ== CLINICAL HISTORY (test v7dugPCwFRAhqLV0SzEe code = 3356) XYUvh6mut6MrwNEhmOEo LSlkpBJaozYdcp79sVY0 eZ25PR0tCZNsUiI4OFIp uaH5Zzj6MQQbZOXbgXHu V912i1akl4fbgtDekNS1 oIhzDCZhvgroYpE0BYul YYJbwhpbOEy9TSeoBPIm iWL8IMSuyGSsN3RvWJEm RI4dfmb5LRS8WOhsPPAy XhA0WPUufCRkCLYglQkz FTnei126UYL3McIcPRPg ajDsvYkugP9wWmFfUGI7 EoL2OGRhLI3zONZpHCve UHormWqwKWR0LIOjUS2m BBdvs3EiIkkfdGI5GGLb sAa2nZ0gq4SnHW4xXXFs rNNrIJOrl4GkMNUkAwRG cYYntT2rBYLumbYoac1a tannKa8fJPrcF7fnvCuh KGJ3LH00MSRoCDRzELTt bXBvcmFsIGxvYmUgbGVz rL2lIzgvIJC3 SPECIMEN SOURCE (test v4akgJKmBOEexDN9WsKt code = 3377) NGGyw6ann0OtwGYmrRIx FYrpyRLtigFahe23cFM5 tZ22SF6wYVLlCjG4KUMs swQ4Vxa1ROCpORUjuKZz Y873y8ljr1qhycKmnJH2 eCrtAPQxhpskWlW9YKwe EJWkudlkEHw6HIjoASRu pZH9BSNvtWLwF4TrQZZq RB1joop7WBV2UFtrEQXg QbR2TDSsiPIgROVmlZum AGbph185RGG1DhUmIILe eeYuzOzypR7qAtAiQJQF H3BebTVfcT== CELLULAR BIOMARKER q4dcwGMrOAIzeOW4SvBg ANALYSIS (test code = CSYjo3nzx7CmgWDirIZw 3380) IPtczEHofnZalk41gLV1 fC78PC4cZQLzPeX4OLSa hhQ7Eew5DVLdZSEonDGa L641e9rkk1hpmbPekUC4 HCVmXZCeC6XbRI7lWEUq hSAkU25oyVJlAIC1GOOm NTMimBLsRNIpPFG6DNDz iDSvE8ixRGJiMU3rjcnn TPmvZUlcLHAuaQQ6VQKu lODmF0VzDEWuWVipINNv zpv1TgMpZy9pwJEfgBtf MFxwYXJkXHBsYWluXGZz VzSyC2YmWLYVUZbku4Si YsYaUX3pUNFhLFmaK5S7 Ywluo9HdZcOgLF0yPZ5o XNEgEDZXKAshR9ThSVxx J9MzQKbbJ3TkZXACPYSc LCBDRDQsIENENDVccGFy fQ== IMMUNOPHENOTYPIC FINDINGS o3cwpAUhUQFveDT0DeXu (test code = 3379) FAYuy1ntp3MtvGWixLJi RFsqgILjaiQmkm15gEI8 dX47RY7nIDHnJlV4XGBm cgC5Xye7TPQpPFDfpUUt A896p0rud5oyzyRbbMT7 YMSlDMPbK1WkPL0wHOWo cVHuX31reDIaMZZ9PZBd BDCyrVXfNPMdCFB4VGVs gHSkB7tmDGSnGO9awuui NPmtUCieACVamRU1CMBy qPCmW3VjGUZoFRftTFOr mlr2CqBmVy3tnSMroNio MFxwYXJkXHBsYWluXGZz VjRiB1YpQQOpOSVjdXYc HOZnTCSdkEf8qJtbZACc INS3Jf1sEFRoIPEdGI8p flx+KZ3ooyZGyC6eTEXa w7StVONdkfXpJNZpqBNq uhSsDzWeY8SmHLB0UIpa RXDuY4KlMM6aiQHaVRGw ZKNfw0fzw4ddiqqklO0b dWxhdGlvbnMgYXJlIGlk LT86xFSzMSP7PLCaxafl ZxDlxZBmGUCdPPAFeV9a oQ5knIXhticgCaIbX1d4 ONPOIPKuDOa8eBWbx0Z8 dGVzIGNvbXByaXNlIDM1 MdobDB1bALUntYMbOPQf bGxzLiBUIGNlbGxzIHNo t1fyGNCULWY2X0P5JYJu sTtaLT3qIBssFbJdDp75 RVEdZCEmIY2nGV9atz3j bQAbbWYsYPLlqG4hOE6x CHLgGZRgDT2pDTXgYUrq LSBvsIupJR2fKVXGJbSp smQaN1M6StVneq3xPMCu K6VuwFYiRWCxFJIoeBOr dGVkLlxwYXJcflxwYXIg FJpsbX7tMB6tz12cV7x8 rQRzcZ1mmUjzbJxdjvU9 HOAvXYuqST56yIAmILEz QxemU9K0CLEenmKfzTau mDHno5KakFSwczYrmEPl XZY2RVTww5OpL6JjOBVe qaFrxpDcwKljJ4z5GPOi WZ3yYT0tdv6jyNVlzeWe zrIvOGQ7UKC3JMCmMDZz clx+XHBhciBUaGUgcmVt HHznyE6rVHK2EY57tiAm bmFseXplZCByZXByZXNl bdAgjq2rcihgNivtBMHh aOmrTMWke12otCUkSBDv kCgcwOrtaNPeC4FcgLDs IGFuZCBkZWJyaXMuXHBh cn0= DISCLAIMER (test code = j9oyzLRfVLKoqVH9ReRi 7933) TRQmy8roo5MnmENprXXj XCovpYCsouGbby89aMB4 mY03BF9mGQCcYuF9GJHh syE7Bqp6UWAwUYTejZKw Z200e2xxu7igilDumJQ1 qAgaSRShsrhlTvG7EQmi EAJafvioPCf3JEgsTHZg mIG4PTYgpCOaO4KtZOMd ZT6xtey0YBA5JXbaKSYl FyB8BLYycQIbMLUowAxx VKwzy683AMM3AhUwDQKq uoVqnFqosI0kCqMrOuZM uEPcAHD7IZJ5cdH4BVHv EGBqadHgb9KaVQKlwePi zRijtLHzoUYmKe6kpDRn H2WcS0zljrYkhTDwfWQ2 aWNzIGRldGVybWluZWQg LldfPeP5fR0eHBC5GaXH tNotM9OoMIRngXLjzEBE OD35JSJjLWRnigCkRRhf iJIoVKKpDB5ukQCkLLDz HLGlYRAeYWKsj1VtBXOj nf12DZElMtddtHyuBKOu Jn4rHk7jJRUeshUmXBA4 LzAOET9itmxrmEGxuGdc kq5wVQodFCSCUPXzEJOm PJH0VPAegQ1kLOV9pNX2 FRO9T8ksK8uyVQUzmgOj DS3sOHHziNTgahRsSAwa DI0omFOcLIXbd1Csdtrz CEi1LESkg3WnLJFcq0Ya YmUgcmVnYXJkZWQgYXMg wJ91REM9eZmcqLxkshOh HL6eEEMjtyKxRXSeEKOy sO7oENfkwkAbIYTljkK3 g1Y9IJodRGMbnoFdFmqr VPB8ftOryrM5bUCuI8sl xkzwBFqzXISwm1ZseG2i vGTCfJLwv9VdcTRzbBAB dCKsBZ4yyvQfEU7qHTS1 ODggKCJDTElBIikgYXMg cXVhbGlmaWVkIHRvIHBl jnCriz3moVqgoZ6yv49r oVJ3xMK4NHZlfH7wW4Hr ICKqk4VrwqvuFCXcmb4= Technical component was [facility] performed at (test code = [facility] [place], 2778) Department of Pathology, [address] [place] [address], [place] [address], Professional component [facility] was performed at ([facility], code = 2779) Department of Pathology, [address] [place] [address], [facility] [id number] 10:17:50Flow Cytometry Report Case: [id number] Authorizing Provider: Santosh Terrell, Collected: 09/30/2021 12:40 PM Ordering Location: [address] Received: 10/02/2021 07:33 AM ServicePathologist: Franklyn Fuentes MD Specimen: Other CEREBROSPINAL FLUID, FLOW CYTOMETRY:- EVALUATION LIMITED BY LOW CELLULARITY AND LOW VIABILITY- NO ABNORMAL T CELL POPULATION IN LIMITED NUMBER IDENTIFIED- NO B CELLS DETECTED- SEE COMMENT Flow cytometry of the CSF demonstrates an extremely paucicellular sample with poor viability. Only 388 events were analyzed. Routine flow cytometry at [facility] targets 100,000 events for routine flow cytometricanalysis. In addition, the viability of the specimen is 52%. A scant population of T lymphocytes with no overt aberrancy is identified. B lymphocytes are essentially not detected, which precludes proper evaluation for lymphoma. Given the nature of the sample, findings may not truly represent in vivo CSF findings. Recommend further evaluation if clinically warranted.[id number] year old male with a week of instability, dizziness and slurred speech. Imaging concerning for ischemic event and a temporal lobe lesion.CSFCD8, surface-kappa, CD56, surface-lambda, CD5, CD19, CD10, CD3, CD20, CD4, CS43Luqedtyo Viability: 52.3% Number of Events Acquired: 388 The following populations are identified:Lymphocytes: Bright CD45+ lymphocytes comprise 35.8% of total cells. T cells show a CD4:CD8 ratio of 3.5 and normal expression of the webb T cell antigens CD3 and CD5. No B cells are detected. Myeloid/monocytic populations: As identified by CD45 and light scatter characteristics, few granulocytes and monocytes are detected. The remaining events analyzed represent nonviable cells, non-hematolymphoid cells, and debris.These tests were developed and their performance characteristics determined by [facility]. They have not been cleared or approved by the U.S. Food and Drug Administration. The FDA has determined that such clearance or approval is not necessary. It should not be regarded as investigational or for research. This laboratory is certified under the Clinical Laboratory Improvement Amendments of 1988 ("CLIA") as qualified to perform high-complexity clinical testing.[facility], Department of Pathology, [address] [place] [address], [facility], [address] [place] [address], EPV culture + gram stain 2021-10-03 10:09:30 Test Item Value Reference Range Interpretation Comments Result (test code = 6463-4) No growth Gram Stain Result (test No organisms seen code = 1123) [facility] culture + gram [id number] 10:09:30 Test Item Value Reference Range Interpretation Comments Result (test code = 6463-4) No growth Gram Stain Result (test No organisms seen code = 1123) [facility] culture + gram [id number] 10:09:30 Test Item Value Reference Range Interpretation Comments Result (test code = 6463-4) No growth Gram Stain Result (test No organisms seen code = 1123) [facility] culture + gram [id number] 10:09:30 Test Item Value Reference Range Interpretation Comments Result (test code = 6463-4) No growth Gram Stain Result (test No organisms seen code = 1123) [facility] culture + gram [id number] 10:09:30 Test Item Value Reference Range Interpretation Comments Result (test code = 6463-4) No growth Gram Stain Result (test No organisms seen code = 1123) [facility] CULTURE + GRAM [id number] 10:09:30 Test Item Value Reference Range Interpretation Comments CULTURE (BEAKER) (test No growth code = 1095) GRAM STAIN RESULT No white blood cells (BEAKER) (test code = seen 1123) GRAM STAIN RESULT No organisms seen (BEAKER) (test code = 17265) Flow Cytometry [id number] 08:49:01 Test Item Value Reference Range Interpretation Comments Flow Cytometry (test code See Separate Report = 2758) Case # (test code = 2759) [id number] [facility] [id number] 08:49:01 Test Item Value Reference Range Interpretation Comments Flow Cytometry (test code See Separate Report = 2758) Case # (test code = 2759) [id number] [facility] [id number] 08:49:01 Test Item Value Reference Range Interpretation Comments Flow Cytometry (test code See Separate Report = 2758) Case # (test code = 2759) [id number] [facility] [id number] 08:49:01 Test Item Value Reference Range Interpretation Comments Flow Cytometry (test code See Separate Report = 2758) Case # (test code = 2759) [id number] [facility] [id number] 08:49:01 Test Item Value Reference Range Interpretation Comments Flow Cytometry (test code See Separate Report = 2758) Case # (test code = 2759) [id number] [facility] [id number] 08:49:01 Test Item Value Reference Range Interpretation Comments FLOW CYTOMETRY RESULT See Separate Report POINTER (BEAKER) (test code = 2758) FLOW CYTOMETRY AP CASE # [id number] (BEAKER) (test code = 2759) POCT-GLUCOSE [id number] 07:37:32 Test Item Value Reference Range Interpretation Comments POC-GLUCOSE METER 165 mg/dL 70-110 H : TESTED A T [facility] 6720 (BEAKER) (test code = BIJU Ferguson [facility], 1538) [id number]: 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 ID = [id number] for An Leola martinez BASIC METABOLIC [id number] 06:54:47 Test Item Value Reference Range Interpretation Comments SODIUM (BEAKER) 140 meq/L 136-145 (test code = 381) POTASSIUM (BEAKER) 4.1 meq/L 3.5-5.1 Specimen slightly (test code = 379) hemolyzed CHLORIDE (BEAKER) 107 meq/L 98-107 (test code = 382) CO2 (BEAKER) (test 21 meq/L 22-29 L code = 355) BLOOD UREA NITROGEN 13 mg/dL 7-21 (BEAKER) (test code = 354) CREATININE (BEAKER) 0.82 mg/dL 0.57-1.25 Specimen slightly (test code = 358) hemolyzed GLUCOSE RANDOM 180 mg/dL 70-105 H (BEAKER) (test code = 652) CALCIUM (BEAKER) 9.5 mg/dL 8.4-10.2 (test code = 697) EGFR (BEAKER) (test 94 mL/min/1.73 ESTIMA RYLEE GFR IS code = 1092) sq m NOT ACCURATE CREATININE CLEARANCE IN PREDICTING GLOMERULAR FILTRATION RATE . ESTIMATED GFR I S NOT APPLICABLE FOR DIALYSIS PATIEN TS. Injection Molding Machine Offbearer ID - REED [id number] 06:54:46 Test Item Value Reference Range Interpretation Comments MAGNESIUM (BEAKER) 2.2 mg/dL 1.6-2.6 Specimen slightly (test code = 627) hemolyzed Injection Molding Machine Offbearer ID - REED WCBC W/PLT COUNT & AUTO [id number] 05:48:36 Test Item Value Reference Range Interpretation Comments WHITE BLOOD CELL COUNT (BEAKER) 6.9 K/ L 3.5-10.5 (test code = 775) RED BLOOD CELL COUNT (BEAKER) 4.91 M/ L 4.63-6.08 (test code = 761) HEMOGLOBIN (BEAKER) (test code = 14.5 GM/DL 13.7-17.5 410) HEMATOCRIT (BEAKER) (test code = 42.9 % 40.1-51.0 411) MEAN CORPUSCULAR VOLUME (BEAKER) 87.4 fL 79.0-92.2 (test code = 753) MEAN CORPUSCULAR HEMOGLOBIN 29.5 pg 25.7-32.2 (BEAKER) (test code = 751) MEAN CORPUSCULAR HEMOGLOBIN CONC 33.8 GM/DL 32.3-36.5 (BEAKER) (test code = 752) RED CELL DISTRIBUTION WIDTH 11.8 % 11.6-14.4 (BEAKER) (test code = 412) PLATELET COUNT (BEAKER) (test 184 K/CU MM 150-450 code = 756) MEAN PLATELET VOLUME (BEAKER) 10.1 fL 9.4-12.4 (test code = 754) NUCLEATED RED BLOOD CELLS 0 /100 WBC 0-0 (BEAKER) (test code = 413) NEUTROPHILS RELATIVE PERCENT 50 % (BEAKER) (test code = 429) LYMPHOCYTES RELATIVE PERCENT 33 % (BEAKER) (test code = 430) MONOCYTES RELATIVE PERCENT 11 % (BEAKER) (test code = 431) EOSINOPHILS RELATIVE PERCENT 6 % (BEAKER) (test code = 432) BASOPHILS RELATIVE PERCENT 0 % (BEAKER) (test code = 437) NEUTROPHILS ABSOLUTE COUNT 3.44 K/ L 1.78-5.38 (BEAKER) (test code = 670) LYMPHOCYTES ABSOLUTE COUNT 2.25 K/ L 1.32-3.57 (BEAKER) (test code = 414) MONOCYTES ABSOLUTE COUNT (BEAKER) 0.72 K/ L 0.30-0.82 (test code = 415) EOSINOPHILS ABSOLUTE COUNT 0.41 K/ L 0.04-0.54 (BEAKER) (test code = 416) BASOPHILS ABSOLUTE COUNT (BEAKER) 0.02 K/ L 0.01-0.08 (test code = 417) IMMATURE GRANULOCYTES-RELATIVE 0 % 0-1 PERCENT (BEAKER) (test code = 2801) POCT-GLUCOSE [id number] 21:03:28 Test Item Value Reference Range Interpretation Comments POC-GLUCOSE METER 236 mg/dL 70-110 H : TESTED A T [facility] 6720 (BEAKER) (test code = [facility], 153) 23033: 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 ID = [id number] for DE NNIS, MARGOTH POCT-GLUCOSE [id number] 18:05:03 Test Item Value Reference Range Interpretation Comments POC-GLUCOSE METER 156 mg/dL 70-110 H : TESTED A T [facility] 6720 (BEAKER) (test code = [facility], 1538) 72247: 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 ID = [id number] for An derLeola gallagher [id number] 13:37:14 Test Item Value Reference Range Interpretation Comments RPR SCREEN (BEAKER) (test code = Nonreactive Nonreactive 420) SHANE TITER AND [id number] 12:37:02 Test Item Value Reference Range Interpretation Comments SHANE TITER (BEAKER) (test code = :40 1541) SHANE PATTERN (BEAKER) (test code = Speckled 1781) ANTI-NUCLEAR ANTIBODY (SHANE)2021-10-02 12:36:51 Test Item Value Reference Range Interpretation Comments ANTI-NUCLEAR ANTIBODY (SHANE) (BEAKER) Positive Negative A (test code = 418) Test performed by IFA method.POCT-GLUCOSE [id number] 11:49:17 Test Item Value Reference Range Interpretation Comments POC-GLUCOSE METER 163 mg/dL 70-110 H : TESTED A T [facility] 6720 (BEAKER) (test code = [facility], 1538) 48366: 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 ID = [id number] for An Leola martinez LIPID [id number] 08:58:39 Test Item Value Reference Range Interpretation Comments TRIGLYCERIDES (BEAKER) 93 mg/dL Speci men slightly (test code = 540) hemolyzed CHOLESTEROL (BEAKER) 121 mg/dL Specime n slightly (test code = 631) hemolyzed HDL CHOLESTEROL (BEAKER) 29 mg/dL (test code = 976) LDL CHOLESTEROL 73 mg/dL CALCULATED (BEAKER) (test code = 633) Triglyceride Reference Range: Low Risk <150 Borderline 150-199 High Risk 200- 499 Very High Risk >=500Cholesterol Reference Range: Low Risk <200 Borderline 200-239 High Risk >240HDL Cholesterol Reference Range: Low Risk >=60 High Risk <40LDL Cholesterol Reference Range: Optimal <100 Near Optimal 100-129 Borderline 130-159 High 160-189 Very High >=190 Injection Molding Machine Offbearer ID - AAHAMIDPOCT-GLUCOSE [id number] 07:31:11 Test Item Value Reference Range Interpretation Comments POC-GLUCOSE METER 157 mg/dL 70-110 H : TESTED A T [facility] 6720 (BEAKER) (test code = [facility], 1538) 89350: 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 ID = [id number] for An Leola martinez BASIC METABOLIC [id number] 05:48:16 Test Item Value Reference Range Interpretation Comments SODIUM (BEAKER) 141 meq/L 136-145 (test code = 381) POTASSIUM (BEAKER) 3.8 meq/L 3.5-5.1 Specimen slightly (test code = 379) hemolyzed CHLORIDE (BEAKER) 107 meq/L 98-107 (test code = 382) CO2 (BEAKER) (test 25 meq/L 22-29 code = 355) BLOOD UREA NITROGEN 12 mg/dL 7-21 (BEAKER) (test code = 354) CREATININE (BEAKER) 0.75 mg/dL 0.57-1.25 Specimen slightly (test code = 358) hemolyzed GLUCOSE RANDOM 166 mg/dL 70-105 H (BEAKER) (test code = 652) CALCIUM (BEAKER) 9.1 mg/dL 8.4-10.2 (test code = 697) EGFR (BEAKER) (test 104 mL/min/1.73 ESTIM ATED GFR IS code = 1092) sq m NOT ACCURATE CREATININE CLEARANCE IN PREDICTING GLOMERULAR FILTRATION RATE . ESTIMATED GFR I S NOT APPLICABLE FOR DIALYSIS PATIEN TS. Injection Molding Machine Offbearer ID Nisreen MCBRIDE [id number] 05:48:15 Test Item Value Reference Range Interpretation Comments MAGNESIUM (BEAKER) 2.1 mg/dL 1.6-2.6 Specimen slightly (test code = 627) hemolyzed Injection Molding Machine Offbearer ID Nisreen MCBRIDE WCBC W/PLT COUNT & AUTO [id number] 05:14:44 Test Item Value Reference Range Interpretation Comments WHITE BLOOD CELL COUNT (BEAKER) 6.7 K/ L 3.5-10.5 (test code = 775) RED BLOOD CELL COUNT (BEAKER) 4.62 M/ L 4.63-6.08 L (test code = 761) HEMOGLOBIN (BEAKER) (test code = 14.0 GM/DL 13.7-17.5 410) HEMATOCRIT (BEAKER) (test code = 40.2 % 40.1-51.0 411) MEAN CORPUSCULAR VOLUME (BEAKER) 87.0 fL 79.0-92.2 (test code = 753) MEAN CORPUSCULAR HEMOGLOBIN 30.3 pg 25.7-32.2 (BEAKER) (test code = 751) MEAN CORPUSCULAR HEMOGLOBIN CONC 34.8 GM/DL 32.3-36.5 (BEAKER) (test code = 752) RED CELL DISTRIBUTION WIDTH 11.8 % 11.6-14.4 (BEAKER) (test code = 412) PLATELET COUNT (BEAKER) (test 181 K/CU MM 150-450 code = 756) MEAN PLATELET VOLUME (BEAKER) 9.8 fL 9.4-12.4 (test code = 754) NUCLEATED RED BLOOD CELLS 0 /100 WBC 0-0 (BEAKER) (test code = 413) NEUTROPHILS RELATIVE PERCENT 53 % (BEAKER) (test code = 429) LYMPHOCYTES RELATIVE PERCENT 30 % (BEAKER) (test code = 430) MONOCYTES RELATIVE PERCENT 10 % (BEAKER) (test code = 431) EOSINOPHILS RELATIVE PERCENT 7 % (BEAKER) (test code = 432) BASOPHILS RELATIVE PERCENT 0 % (BEAKER) (test code = 437) NEUTROPHILS ABSOLUTE COUNT 3.53 K/ L 1.78-5.38 (BEAKER) (test code = 670) LYMPHOCYTES ABSOLUTE COUNT 2.04 K/ L 1.32-3.57 (BEAKER) (test code = 414) MONOCYTES ABSOLUTE COUNT (BEAKER) 0.69 K/ L 0.30-0.82 (test code = 415) EOSINOPHILS ABSOLUTE COUNT 0.44 K/ L 0.04-0.54 (BEAKER) (test code = 416) BASOPHILS ABSOLUTE COUNT (BEAKER) 0.02 K/ L 0.01-0.08 (test code = 417) IMMATURE GRANULOCYTES-RELATIVE 0 % 0-1 PERCENT (BEAKER) (test code = 2801) MR, BRAIN, [id number] 01:58:00[facility] protocolPending OR for biopsy tomorrow, scan needed prior to postingUnlisted Reason for Exam- Click Yes and Enter Reason Below->Yesbrain massUnlisted Reason for Exam->brain massDoes the patient have an implanted electronic device?->No [facility] 1955 Sex: MFINAL REPORT MRI Brain with and without contrast Clinical History: Unlisted Reason for Exambrain mass Technique: MRI of the brain utilizing axial T1, T2, FLAIR, GRE, DWI, sagittal T1; and postgadolinium axial, sagittal, and coronal T1-weighted images. Comparisons: None Findings: Restricted diffusion in the right paramedian unique consistent with acute infarction. There is subtle hypointense T2 signal and SWI signal within the infarction bed which may represent developing petechial-like hemorrhage. There is a heterogeneous peripherally enhancing lesion measuring 2.6 x 1.3 x 1.2 cm surrounding FLAIR signal abnormality in the left medial temporal lobe. There is mild mass effect on adjacent structures with effacement of the temporal horn of the left lateral ventricle.Multiple bilateral T2 and FLAIR hyperintense white matter foci likely represent chronic white matter microvascular disease. Mild generalized parenchymal volume loss with commensurate enlargement CSF spaces and ventricles. No midline shift. There are no extra-axial fluid collections. The craniocervical junction is preserved. The major intracranial flow-voids appear patent. Middle ears and mastoid air cells are clear. Intraorbital contents are unremarkable. No aggressive osseous or soft tissue lesions identified. Mucous retention cyst in the right maxillary sinus. IMPRESSION: Acute infarction in the right unique with findingssuggestive of developing petechial-like hemorrhage. Heterogeneously peripherally enhancing lesion measuring 2.6 cm in the left temporal lobe with mass effect on adjacent structures including the left lateral ventricle. Differential considerations include high-grade primary glial neoplasm, metastatic disease, less likely infectious process. Signed: Thais Glez MDRep[facility] Verified Date/Time: 10/02/2021 01:58:30 POCT-GLUCOSE [id number] 22:20:54 Test Item Value Reference Range Interpretation Comments POC-GLUCOSE METER 226 mg/dL 70-110 H : TESTED A T [facility] 6720 (BEAKER) (test code = BIJ[place], 1538) 20809: 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 ID = [id number] for Nhi Hutson SARS-COV2/RT-PCR ([facility])2021-10-01 22:08:28 Test Item Value Reference Range Interpretation Comments SARS-COV2/RT-PCR Negative Negative The SARS-Co V-2 target (test code = nucleic acids a re not 5641281) detected in thi s specimen. Negative result s do not preclude SARS-C oV-2 infection and s hould not be used as the rolando e basis for patient managem ent decisions. Nega tive results must be combine d with clinical observ ations, patient history , and epidemiological information. A false negativ e result may occur if a spec imen is improperly miller ected, transported or handled. This SARS CoV-2 test is a rapid, real-time RT-PC R test intended for th e qualitative detection of nu cleic acid from SARS-CoV-2 in a nasopharyngeal swab specimen collected from individuals suspected of CO VID-19 by their healthcar e provider. This test has been authorized by FDA under an EUA for use by authorized laboratories. This test is only authorized for the duration of the declaration that circumstances exist justifying the authorization of emergency use of in vitro diagnostic tests for detection and/or diagnosis of COVID-19 under Section 564(b)(1) of the Federal Food, Drug and Cosmetic Act, 21 U.S.C. 360bbb-3(b)(1), unless the authorization is terminated or revoked sooner. Fact Sheet for Healthcare Providers: https://www.Bunkr m/Documents/Xpert%20Xpress%20SARS%20CoV-2/Fact%20Sheets/3023802%54NGMK-ZUK-3%20 HEALTHCARE%20PROVIDERS%20FACT%20SHEET.pdf Fact Sheet for Healthcare Patients: https://www.TESARO/Documents/Xpert%20Xp ress%20SARS%20CoV-2/Fact%20Sheets/3023801%33VZNQ-HZH-1%20PATIENT%20FACT%20SHEET .pdfTransthoracic 2D echo w/ doppler (cw/pw/color)2021-10-01 16:20:59Ejection FractionSLEH ECHO HEARTLAB [facility] Transthoracic 2D echo w/ doppler (cw/pw/color)2021-10-01 16:20:59Ejection FractionSLEH ECHO HEARTLAB [facility] Transthoracic 2D echo w/ doppler (cw/pw/color)2021-10-01 16:20:59Ejection FractionSLEH ECHO HEARTLAB [facility] Transthoracic 2D echo w/ doppler (cw/pw/color)2021-10-01 16:20:59Ejection FractionSLEH ECHO HEARTLAB [facility] Transthoracic 2D echo w/ doppler (cw/pw/color)2021-10-01 16:20:59Ejection FractionSLEH ECHO HEARTLAB [facility] [id number] 12:00:21 Test Item Value Reference Range Interpretation Comments POC-GLUCOSE METER 191 mg/dL 70-110 H : TESTED A T [facility] 6720 (BEAKER) (test code = [facility], 1538) 09564: 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 ID = [id number] for Um eh, Juanumbu POCT-GLUCOSE [id number] 07:54:12 Test Item Value Reference Range Interpretation Comments POC-GLUCOSE METER 148 mg/dL 70-110 H : TESTED A T [facility] 6720 (BEAKER) (test code = [facility], 1538) 60358: 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 ID = [id number] for Um eh, [place]umbu [id number] 05:56:11 Test Item Value Reference Range Interpretation Comments MAGNESIUM (BEAKER) (test code = 2.1 mg/dL 1.6-2.6 627) Injection Molding Machine Offbearer ID - REED WBASIC METABOLIC [id number] 05:56:10 Test Item Value Reference Range Interpretation Comments SODIUM (BEAKER) 141 meq/L 136-145 (test code = 381) POTASSIUM (BEAKER) 3.6 meq/L 3.5-5.1 (test code = 379) CHLORIDE (BEAKER) 106 meq/L 98-107 (test code = 382) CO2 (BEAKER) (test 26 meq/L 22-29 code = 355) BLOOD UREA NITROGEN 17 mg/dL 7-21 (BEAKER) (test code = 354) CREATININE (BEAKER) 0.78 mg/dL 0.57-1.25 (test code = 358) GLUCOSE RANDOM 150 mg/dL 70-105 H (BEAKER) (test code = 652) CALCIUM (BEAKER) 9.3 mg/dL 8.4-10.2 (test code = 697) EGFR (BEAKER) (test 99 mL/min/1.73 ESTIMA RYLEE GFR IS code = 1092) sq m NOT ACCURATE CREATININE CLEARANCE IN PREDICTING GLOMERULAR FILTRATION RATE . ESTIMATED GFR I S NOT APPLICABLE FOR DIALYSIS PATIEN TS. Injection Molding Machine Offbearer ID - REED WCBC W/PLT COUNT & AUTO [id number] 05:34:21 Test Item Value Reference Range Interpretation Comments WHITE BLOOD CELL COUNT (BEAKER) 7.2 K/ L 3.5-10.5 (test code = 775) RED BLOOD CELL COUNT (BEAKER) 4.60 M/ L 4.63-6.08 L (test code = 761) HEMOGLOBIN (BEAKER) (test code = 13.7 GM/DL 13.7-17.5 410) HEMATOCRIT (BEAKER) (test code = 40.1 % 40.1-51.0 411) MEAN CORPUSCULAR VOLUME (BEAKER) 87.2 fL 79.0-92.2 (test code = 753) MEAN CORPUSCULAR HEMOGLOBIN 29.8 pg 25.7-32.2 (BEAKER) (test code = 751) MEAN CORPUSCULAR HEMOGLOBIN CONC 34.2 GM/DL 32.3-36.5 (BEAKER) (test code = 752) RED CELL DISTRIBUTION WIDTH 11.8 % 11.6-14.4 (BEAKER) (test code = 412) PLATELET COUNT (BEAKER) (test 190 K/CU MM 150-450 code = 756) MEAN PLATELET VOLUME (BEAKER) 10.3 fL 9.4-12.4 (test code = 754) NUCLEATED RED BLOOD CELLS 0 /100 WBC 0-0 (BEAKER) (test code = 413) NEUTROPHILS RELATIVE PERCENT 59 % (BEAKER) (test code = 429) LYMPHOCYTES RELATIVE PERCENT 25 % (BEAKER) (test code = 430) MONOCYTES RELATIVE PERCENT 10 % (BEAKER) (test code = 431) EOSINOPHILS RELATIVE PERCENT 6 % (BEAKER) (test code = 432) BASOPHILS RELATIVE PERCENT 0 % (BEAKER) (test code = 437) NEUTROPHILS ABSOLUTE COUNT 4.27 K/ L 1.78-5.38 (BEAKER) (test code = 670) LYMPHOCYTES ABSOLUTE COUNT 1.79 K/ L 1.32-3.57 (BEAKER) (test code = 414) MONOCYTES ABSOLUTE COUNT (BEAKER) 0.71 K/ L 0.30-0.82 (test code = 415) EOSINOPHILS ABSOLUTE COUNT 0.43 K/ L 0.04-0.54 (BEAKER) (test code = 416) BASOPHILS ABSOLUTE COUNT (BEAKER) 0.02 K/ L 0.01-0.08 (test code = 417) IMMATURE GRANULOCYTES-RELATIVE 0 % 0-1 PERCENT (BEAKER) (test code = 2801) POCT-GLUCOSE [id number] 21:51:04 Test Item Value Reference Range Interpretation Comments POC-GLUCOSE METER 263 mg/dL 70-110 H : TESTED A T [facility] 6720 (BEAKER) (test code = [facility], 1538) 13819: 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 ID = [id number] for MARIANA HAMILTON POCT-GLUCOSE [id number] 18:03:37 Test Item Value Reference Range Interpretation Comments POC-GLUCOSE METER 259 mg/dL 70-110 H : TESTED A T [facility] 6720 (BEAKER) (test code = [facility] [employer] [facility], 1538) 61924: 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 ID = [id number] for EVANGELISTA BARRAGAN Protein, [id number] 17:35:00 Test Item Value Reference Range Interpretation Comments Protein, CSF (test code = 57 mg/dL 15-45 H 2880-3) DAMIAN (test code = DAMIAN) Injection Molding Machine Offbearer ID - DB Lab Interpretation (test Abnormal code = 46374-6) [facility] [id number] 17:35:00 Test Item Value Reference Range Interpretation Comments Protein, CSF (test code = 57 mg/dL 15-45 H 2880-3) DAMIAN (test code = DAMIAN) Injection Molding Machine Offbearer ID - DB Lab Interpretation (test Abnormal code = 87388-6) [facility] [id number] 17:35:00 Test Item Value Reference Range Interpretation Comments Protein, CSF (test code = 57 mg/dL 15-45 H 2880-3) DAMIAN (test code = DAMIAN) Injection Molding Machine Offbearer ID - DB Lab Interpretation (test Abnormal code = 12772-6) [facility] [id number] 17:35:00 Test Item Value Reference Range Interpretation Comments Protein, CSF (test code = 57 mg/dL 15-45 H 2880-3) DAMIAN (test code = DAMIAN) Injection Molding Machine Offbearer ID - DB Lab Interpretation (test Abnormal code = 28521-1) [facility], [id number] 17:35:00 Test Item Value Reference Range Interpretation Comments Protein, CSF (test code = 57 mg/dL 15-45 H 2880-3) DAMIAN (test code = DAMIAN) Injection Molding Machine Offbearer ID - DB Lab Interpretation (test Abnormal code = 65314-7) [facility] CenterPROTE[facility], [id number] 17:35:00 Test Item Value Reference Range Interpretation Comments PROTEIN CSF (BEAKER) (test code = 57 mg/dL 15-45 H 378) Injection Molding Machine Offbearer ID - DBGlucose, [id number] 17:34:59 Test Item Value Reference Range Interpretation Comments Glucose, CSF (test code = 68 mg/dL 40-70 2342-4) DAMIAN (test code = DAMIAN) Injection Molding Machine Offbearer ID - DB Lab Interpretation (test Normal code = 64903-0) [facility] Center[facility], [id number] 17:34:59 Test Item Value Reference Range Interpretation Comments Glucose, CSF (test code = 68 mg/dL 40-70 2342-4) DAMIAN (test code = DAMIAN) Injection Molding Machine Offbearer ID - DB Lab Interpretation (test Normal code = 13553-5) [facility], [id number] 17:34:59 Test Item Value Reference Range Interpretation Comments Glucose, CSF (test code = 68 mg/dL 40-70 2342-4) DAMIAN (test code = DAMIAN) Injection Molding Machine Offbearer ID - DB Lab Interpretation (test Normal code = 96229-3) [facility] [id number] 17:34:59 Test Item Value Reference Range Interpretation Comments Glucose, CSF (test code = 68 mg/dL 40-70 2342-4) DAMIAN (test code = DAMIAN) Injection Molding Machine Offbearer ID - DB Lab Interpretation (test Normal code = 45862-3) [facility], [id number] 17:34:59 Test Item Value Reference Range Interpretation Comments Glucose, CSF (test code = 68 mg/dL 40-70 2342-4) DAMIAN (test code = DAMIAN) Injection Molding Machine Offbearer ID - DB Lab Interpretation (test Normal code = 51965-1) [facility], [id number] 17:34:59 Test Item Value Reference Range Interpretation Comments GLUCOSE CSF (BEAKER) (test code = 68 mg/dL 40-70 406) Injection Molding Machine Offbearer ID - DBCSF cell count with [id number] 16:00:15 Test Item Value Reference Range Interpretation Comments Appearance (test Clear Clear code = 03948-9) Color (test code = Colorless Colorless 00166-2) RBCs (test code = 0 See_Comment [Automate d message] 792-2) The system [employer] generated this result transmit rylee reference range : 0 - 5 /cu mm. The reference range was not used to interpret this result as normal/abnormal . WBCs (test code = 1 See_Comment [Automate d message] 806-0) The system [employer] generated this result transmit rylee reference range : <=5 /cu mm. The reference range was not used to interpret this result as normal/abnormal . RBCs Fresh? (test Not Applicable code = 07347-3) # of Cells Diff'd 4 (test code = 28068-2) % Neutros (test 0 % 0-5 code = 77877-5) % Lymphs (test code 75 % 40-80 = 98922-5) % Monos (test code 25 % 15-45 = 439) % Eos (test code = 0 % See_Comment [Automat ed message] 360) The system [employer] generated this result transmit rylee reference range : <=0. The refere nce range was not u sed to interpret th is result as normal/abnormal . % Baso (test code = 0 % See_Comment [Automa rylee message] 440) The system [employer] generated this result transmit rylee reference range : <=0. The refere nce range was not u sed to interpret th is result as normal/abnormal . Tube Number (test 1 code = 2677) [facility]CSF [facility] with [id number] 16:00:15 Test Item Value Reference Range Interpretation Comments Appearance (test Clear Clear code = 29237-4) Color (test code = Colorless Colorless 64143-0) RBCs (test code = 0 See_Comment [Automate d message] 792-2) The system [employer] generated this result transmit rylee reference range : 0 - 5 /cu mm. The reference range was not used to interpret this result as normal/abnormal . WBCs (test code = 1 See_Comment [Automate d message] 806-0) The system [employer] generated this result transmit rylee reference range : <=5 /cu mm. The reference range was not used to interpret this result as normal/abnormal . RBCs Fresh? (test Not Applicable code = 36585-9) # of Cells Diff'd 4 (test code = 43818-8) % Neutros (test 0 % 0-5 code = 53619-1) % Lymphs (test code 75 % 40-80 = 46730-6) % Monos (test code 25 % 15-45 = 439) % Eos (test code = 0 % See_Comment [Automat ed message] 360) The system [employer] generated this result transmit rylee reference range : <=0. The refere nce range was not u sed to interpret th is result as normal/abnormal . % Baso (test code = 0 % See_Comment [Automa rylee message] 440) The system [employer] generated this result transmit rylee reference range : <=0. The refere nce range was not u sed to interpret th is result as normal/abnormal . Tube Number (test 1 code = 2677) [facility] with [id number] 16:00:15 Test Item Value Reference Range Interpretation Comments Appearance (test Clear Clear code = 80260-8) Color (test code = Colorless Colorless 67032-1) RBCs (test code = 0 See_Comment [Automate d message] 792-2) The system [employer] generated this result transmit rylee reference range : 0 - 5 /cu mm. The reference range was not used to interpret this result as normal/abnormal . WBCs (test code = 1 See_Comment [Automate d message] 806-0) The system [employer] generated this result transmit rylee reference range : <=5 /cu mm. The reference range was not used to interpret this result as normal/abnormal . RBCs Fresh? (test Not Applicable code = 15313-6) # of Cells Diff'd 4 (test code = 54116-2) % Neutros (test 0 % 0-5 code = 17014-8) % Lymphs (test code 75 % 40-80 = 84033-1) % Monos (test code 25 % 15-45 = 439) % Eos (test code = 0 % See_Comment [Automat ed message] 360) The system [employer] generated this result transmit rylee reference range : <=0. The refere nce range was not u sed to interpret th is result as normal/abnormal . % Baso (test code = 0 % See_Comment [Automa rylee message] 440) The system [employer] generated this result transmit rylee reference range : <=0. The refere nce range was not u sed to interpret th is result as normal/abnormal . Tube Number (test 1 code = 2677) [facility] with [id number] 16:00:15 Test Item Value Reference Range Interpretation Comments Appearance (test Clear Clear code = 71624-2) Color (test code = Colorless Colorless 44696-9) RBCs (test code = 0 See_Comment [Automate d message] 792-2) The system [employer] generated this result transmit rylee reference range : 0 - 5 /cu mm. The reference range was not used to interpret this result as normal/abnormal . WBCs (test code = 1 See_Comment [Automate d message] 806-0) The system [employer] generated this result transmit rylee reference range : <=5 /cu mm. The reference range was not used to interpret this result as normal/abnormal . RBCs Fresh? (test Not Applicable code = 18596-0) # of Cells Diff'd 4 (test code = 06762-1) % Neutros (test 0 % 0-5 code = 63982-2) % Lymphs (test code 75 % 40-80 = 30011-3) % Monos (test code 25 % 15-45 = 439) % Eos (test code = 0 % See_Comment [Automat ed message] 360) The system [employer] generated this result transmit rylee reference range : <=0. The refere nce range was not u sed to interpret th is result as normal/abnormal . % Baso (test code = 0 % See_Comment [Automa rylee message] 440) The system [employer] generated this result transmit rylee reference range : <=0. The refere nce range was not u sed to interpret th is result as normal/abnormal . Tube Number (test 1 code = 2677) [facility] with [id number] 16:00:15 Test Item Value Reference Range Interpretation Comments Appearance (test Clear Clear code = 58863-6) Color (test code = Colorless Colorless 97833-9) RBCs (test code = 0 See_Comment [Automate d message] 792-2) The system [employer] generated this result transmit rylee reference range : 0 - 5 /cu mm. The reference range was not used to interpret this result as normal/abnormal . WBCs (test code = 1 See_Comment [Automate d message] 806-0) The system [employer] generated this result transmit rylee reference range : <=5 /cu mm. The reference range was not used to interpret this result as normal/abnormal . RBCs Fresh? (test Not Applicable code = 59197-9) # of Cells Diff'd 4 (test code = 51544-2) % Neutros (test 0 % 0-5 code = 87527-4) % Lymphs (test code 75 % 40-80 = 06131-1) % Monos (test code 25 % 15-45 = 439) % Eos (test code = 0 % See_Comment [Automat ed message] 360) The system [employer] generated this result transmit rylee reference range : <=0. The refere nce range was not u sed to interpret th is result as normal/abnormal . % Baso (test code = 0 % See_Comment [Automa rylee message] 440) The system [employer] generated this result transmit rylee reference range : <=0. The refere nce range was not u sed to interpret th is result as normal/abnormal . Tube Number (test 1 code = 2677) [facility] [id number] 16:00:15 Test Item Value Reference Range Interpretation Comments APPEARANCE CSF Clear Clear (BEAKER) (test code = 407) COLOR CSF (BEAKER) Colorless Colorless (test code = 408) RBC CSF (BEAKER) 0 /cu mm 0-5 (test code = 409) WBC CSF (BEAKER) 1 /cu mm See_Comment [Automated (test code = 1020) message] The system which generated this result transmitted reference range : <=5. The refere nce range was not u sed to interpret th is result as normal/abnormal . RBCS FRESH (BEAKER) Not Applicable (test code = 1444) NUMBER OF CELLS 4 DIFF'D (BEAKER) (test code = 1591) NEUTROPHIL, CSF 0 % 0-5 (BEAKER) (test code = 324) LYMPHS CSF (BEAKER) 75 % 40-80 (test code = 438) MONO/MACROPHAGE CSF 25 % 15-45 (BEAKER) (test code = 439) EOSINOPHILS CSF 0 % See_Comment [Automated (BEAKER) (test code message] The system = 360) which generated this result transmitted reference range : <=0. The refere nce range was not u sed to interpret th is result as normal/abnormal . BASO CSF (BEAKER) 0 % See_Comment [Automate d (test code = 440) message] T he system which generated this result transmitted reference range : <=0. The refere nce range was not u sed to interpret th is result as normal/abnormal . TUBE NUMBER CSF 1 (BEAKER) (test code = 2678) MENINGITIS/ENCEPHALITIS [id number] 15:30:42 Test Item Value Reference Range Interpretation Comments E COLI K1 (test code = Not detected Not detected 17401-9) HAEMOPHILUS INFLUENZAE Not detected Not detected (test code = 47831-3) LISTERIA MONOCYTOGENES Not detected Not detected (test code = 28559-5) NEISSERIA MENINGITIDIS Not detected Not detected (test code = 03955-7) STREPTOCOCCUS Not detected Not detected AGALACTIAE (test code = 17549-1) STREPTOCOCCUS Not detected Not detected PNEUMONIAE (test code = 72637-4) Cytomegalovirus (CMV) Not detected Not detected (test code = 74987-0) ENTEROVIRUS (test code Not detected Not detected = 21921-1) Human herpesvirus 6 Not detected Not detected (HHV-6) (test code = 60857-3) Herpes simplex virus Not detected Not detected 1(HSV-1) (test code = 42183-8) HERPES SIMPLEX VIRUS Not detected Not detected 2(HSV-2) (test code = 77616-4) Human parechovirus Not detected Not detected (test code = 71487-1) Varicella-zoster virus Not detected Not detected (VZV) (test code = 59985-6) Cryptococcus Not detected Not detected neoformans/gattii (test code = 08357-7) DAMIAN (test code = DAMIAN) The performance of this test has not been specifically evaluated for CSF specimens from immunocompromised individuals. The effect of antibiotic treatment on test performance has not been evaluated. Other viruses and bacteria not targeted by this PCR panel cannot be excluded; therefore, clinical correlation and follow up of serology, culture results, and other molecular studies may be required. This sample was tested at the [facility] Molecular Diagnostics Laboratory using the [facility] Meningitis Encephalitis Panel. It is FDA cleared and has been verified and approved by the [facility] Molecular Diagnostics Laboratory for clinical use. This laboratory is CLIA-certified and [employer] (CAP)-accredited to perform high complexity testing. Lab Interpretation Normal (test code = 28918-5) [facility]ING[facility]ENCEPHALITIS [id number] 15:30:42 Test Item Value Reference Range Interpretation Comments E COLI K1 (test code = Not detected Not detected 32846-2) HAEMOPHILUS INFLUENZAE Not detected Not detected (test code = 98420-0) LISTERIA MONOCYTOGENES Not detected Not detected (test code = 35872-7) NEISSERIA MENINGITIDIS Not detected Not detected (test code = 50737-2) STREPTOCOCCUS Not detected Not detected AGALACTIAE (test code = 06278-3) STREPTOCOCCUS Not detected Not detected PNEUMONIAE (test code = 57961-5) Cytomegalovirus (CMV) Not detected Not detected (test code = 79539-0) ENTEROVIRUS (test code Not detected Not detected = 56655-4) Human herpesvirus 6 Not detected Not detected (HHV-6) (test code = 22864-8) Herpes simplex virus Not detected Not detected 1(HSV-1) (test code = 40624-9) HERPES SIMPLEX VIRUS Not detected Not detected 2(HSV-2) (test code = 01061-8) Human parechovirus Not detected Not detected (test code = 86685-5) Varicella-zoster virus Not detected Not detected (VZV) (test code = 04298-6) Cryptococcus Not detected Not detected neoformans/gattii (test code = 84604-1) DAMIAN (test code = DAMIAN) The performance of this test has not been specifically evaluated for CSF specimens from immunocompromised individuals. The effect of antibiotic treatment on test performance has not been evaluated. Other viruses and bacteria not targeted by this PCR panel cannot be excluded; therefore, clinical correlation and follow up of serology, culture results, and other molecular studies may be required. This sample was tested at the [facility] Molecular Diagnostics Laboratory using the [employer] Meningitis Encephalitis Panel. It is FDA cleared and has been verified and approved by the [facility] Molecular Diagnostics Laboratory for clinical use. This laboratory is CLIA-certified and [employer] (CAP)-accredited to perform high complexity testing. Lab Interpretation Normal (test code = 62720-9) [facility]ENCEPHALITIS [id number] 15:30:42 Test Item Value Reference Range Interpretation Comments E COLI K1 (test code = Not detected Not detected 39035-9) HAEMOPHILUS INFLUENZAE Not detected Not detected (test code = 88086-8) LISTERIA MONOCYTOGENES Not detected Not detected (test code = 34517-8) NEISSERIA MENINGITIDIS Not detected Not detected (test code = 53007-7) STREPTOCOCCUS Not detected Not detected AGALACTIAE (test code = 93566-0) STREPTOCOCCUS Not detected Not detected PNEUMONIAE (test code = 38055-5) Cytomegalovirus (CMV) Not detected Not detected (test code = 91722-8) ENTEROVIRUS (test code Not detected Not detected = 45637-9) Human herpesvirus 6 Not detected Not detected (HHV-6) (test code = 23368-6) Herpes simplex virus Not detected Not detected 1(HSV-1) (test code = 36877-7) HERPES SIMPLEX VIRUS Not detected Not detected 2(HSV-2) (test code = 87922-5) Human parechovirus Not detected Not detected (test code = 86313-5) Varicella-zoster virus Not detected Not detected (VZV) (test code = 59423-2) Cryptococcus Not detected Not detected neoformans/gattii (test code = 78765-8) DAMIAN (test code = DAMIAN) The performance of this test has not been specifically evaluated for CSF specimens from immunocompromised individuals. The effect of antibiotic treatment on test performance has not been evaluated. Other viruses and bacteria not targeted by this PCR panel cannot be excluded; therefore, clinical correlation and follow up of serology, culture results, and other molecular studies may be required. This sample was tested at the [facility] Molecular Diagnostics Laboratory using the [employer] Meningitis Encephalitis Panel. It is FDA cleared and has been verified and approved by the [facility] Molecular Diagnostics Laboratory for clinical use. This laboratory is CLIA-certified and [employer] (CAP)-accredited to perform high complexity testing. Lab Interpretation Normal (test code = 67846-4) [facility]ENCEPHALITIS [id number] 15:30:42 Test Item Value Reference Range Interpretation Comments E COLI K1 (test code = Not detected Not detected 45727-5) HAEMOPHILUS INFLUENZAE Not detected Not detected (test code = 80407-0) LISTERIA MONOCYTOGENES Not detected Not detected (test code = 83731-9) NEISSERIA MENINGITIDIS Not detected Not detected (test code = 81368-4) STREPTOCOCCUS Not detected Not detected AGALACTIAE (test code = 78004-7) STREPTOCOCCUS Not detected Not detected PNEUMONIAE (test code = 87435-6) Cytomegalovirus (CMV) Not detected Not detected (test code = 82950-8) ENTEROVIRUS (test code Not detected Not detected = 54606-6) Human herpesvirus 6 Not detected Not detected (HHV-6) (test code = 03326-7) Herpes simplex virus Not detected Not detected 1(HSV-1) (test code = 65498-2) HERPES SIMPLEX VIRUS Not detected Not detected 2(HSV-2) (test code = 82657-8) Human parechovirus Not detected Not detected (test code = 91285-9) Varicella-zoster virus Not detected Not detected (VZV) (test code = 95819-2) Cryptococcus Not detected Not detected neoformans/gattii (test code = 68803-8) DAMIAN (test code = DAMIAN) The performance of this test has not been specifically evaluated for CSF specimens from immunocompromised individuals. The effect of antibiotic treatment on test performance has not been evaluated. Other viruses and bacteria not targeted by this PCR panel cannot be excluded; therefore, clinical correlation and follow up of serology, culture results, and other molecular studies may be required. This sample was tested at the [facility] Molecular Diagnostics Laboratory using the [employer] Meningitis Encephalitis Panel. It is FDA cleared and has been verified and approved by the [facility] Molecular Diagnostics Laboratory for clinical use. This laboratory is CLIA-certified and [employer] (CAP)-accredited to perform high complexity testing. Lab Interpretation Normal (test code = 67144-8) [facility]ENCEPHALITIS [id number] 15:30:42 Test Item Value Reference Range Interpretation Comments E COLI K1 (test code = Not detected Not detected 64177-5) HAEMOPHILUS INFLUENZAE Not detected Not detected (test code = 32681-0) LISTERIA MONOCYTOGENES Not detected Not detected (test code = 72902-9) NEISSERIA MENINGITIDIS Not detected Not detected (test code = 63362-3) STREPTOCOCCUS Not detected Not detected AGALACTIAE (test code = 23875-5) STREPTOCOCCUS Not detected Not detected PNEUMONIAE (test code = 03345-2) Cytomegalovirus (CMV) Not detected Not detected (test code = 83237-8) ENTEROVIRUS (test code Not detected Not detected = 21662-5) Human herpesvirus 6 Not detected Not detected (HHV-6) (test code = 39978-0) Herpes simplex virus Not detected Not detected 1(HSV-1) (test code = 57906-1) HERPES SIMPLEX VIRUS Not detected Not detected 2(HSV-2) (test code = 67166-6) Human parechovirus Not detected Not detected (test code = 21782-4) Varicella-zoster virus Not detected Not detected (VZV) (test code = 27926-7) Cryptococcus Not detected Not detected neoformans/gattii (test code = 35958-2) DAMIAN (test code = DAMIAN) The performance of this test has not been specifically evaluated for CSF specimens from immunocompromised individuals. The effect of antibiotic treatment on test performance has not been evaluated. Other viruses and bacteria not targeted by this PCR panel cannot be excluded; therefore, clinical correlation and follow up of serology, culture results, and other molecular studies may be required. This sample was tested at the [facility] Molecular Diagnostics Laboratory using the [employer] Meningitis Encephalitis Panel. It is FDA cleared and has been verified and approved by the [facility] Molecular Diagnostics Laboratory for clinical use. This laboratory is CLIA-certified and [employer] (CAP)-accredited to perform high complexity testing. Lab Interpretation Normal (test code = 75769-0) [facility]ENCEPHALITIS [id number] 15:30:42 Test Item Value Reference Range Interpretation Comments ESCHERICHIA COLI K1 (test code = Not detected Not detected 20160303) HAEMOPHILUS INFLUENZAE (test Not detected Not detected code = 3255225) LISTERIA MONOCYTOGENES (test Not detected Not detected code = 2238582) NEISSERIA MENINGITIDIS (test Not detected Not detected code = 20160306) STREPTOCOCCUS AGALACTIAE (test Not detected Not detected code = 1052059) STREPTOCOCCUS PNEUMONIAE (test Not detected Not detected code = 4693211) CYTOMEGALOVIRUS (CMV) (test code Not detected Not detected = 20160309) ENTEROVIRUS (test code = Not detected Not detected 9840649) HUMAN HERPESVIRUS 6 (HHV-6) Not detected Not detected (test code = 7275756) HERPES SIMPLEX VIRUS 1(HSV-1) Not detected Not detected (test code = 8076864) HERPES SIMPLEX VIRUS 2(HSV-2) Not detected Not detected (test code = 7722217) HUMAN PARECHOVIRUS (test code = Not detected Not detected 8372096) VARICELLA-ZOSTER VIRUS (VZV) Not detected Not detected (test code = 4526729) CRYPTOCOCCUS NEOFORMANS/GATTII Not detected Not detected (test code = 6592702) The performance of this test has not been specifically evaluated for CSF specimens from immunocompromised individuals. The effect of antibiotic treatment on test performance has not been evaluated. Other viruses and bacteria not targeted by this PCR panel cannot be excluded; therefore, clinical correlation and follow up of serology, culture results, and other molecular studies may be required. This sample was tested at the [facility] Molecular Diagnostics Laboratory using the [employer] MeningitisEncephalitis Panel. It is FDA cleared and has been verified and approved by the [facility] Molecular Diagnostics Laboratory for clinical use. This laboratory is CLIA-certified and [employer] ([employer])-accredited to perform high complexity testing.CT, [id number] 15:20:00Unlisted Reason for Exam - Click Yes and Enter Reason Below- >YesIntracranial lesion. Evaluate formass, infectionUnlisted Reason for Exam- >Intracranial lesion. Evaluate for mass, infectionIs thisfor enterography?- >NoWill this procedure require oral contrast?->No [facility] : 1955 Sex: MFINAL REPORT TECHNIQUE: CT of the chest, abdomen, and pelvis WITH intravenous contrast and WITHOUT oral contrast. Dose modulation, iterative reconstruction, and/or weight-based adjustment ofthe mA/kV was utilized to reduce the radiation dose to as low as reasonably achievable. INDICATION: U nlisted Reason for ExamIntracranial lesion. Evaluation for mass, infection COMPARISON: None. FINDINGS: LINES/TUBES: None. LUNGS AND AIRWAYS: Central airways are patent. There is mild bilateral lower lobe atelectasis. No focal consolidation.. There are a few small pulmonary nodules left lower lobe. For instance there is a subpleural nodule measuring 0.5 cm. (Axial image 41). There is also a small subpleural nodule measuring 0.4 cm. (Axial image 40).PLEURA: The pleural spaces are clear.HEART AND MEDIASTINUM: The visualized thyroid gland is normal. No significant mediastinal, hilar, or axillary lymphadenopathy. The heart and pericardium are within normal limits. Atherosclerotic calcifications in the thoracic aorta and coronary arteries. HEPATOBILIARY: No focal hepatic lesions. Gallbladder is unremarkable. No biliary ductal dilatation.SPLEEN: No splenomegaly.PANCREAS: No focal masses or ductal dilatation. ADRENALS: No adrenal nodules.KIDNEYS/URETERS: No hydronephrosis, stones, or solid mass lesions. 1.9 cm cyst in the medial interpolar region of the right kidney. 1 cm cyst in the left kidney.PELVIC ORGANS/BLADDER: Prostate is enlarged. There is excreted contrast in the urinary bladder.. PERITONEUM/RETROPERITONEUM: No free air or fluid.LYMPH NODES: No lymphadenopathy.VESSELS: Atherosclerotic changes in the abdominal aorta and branch vessels. No evidence of aneurysmal dilation. Portal vein, splenic vein and superior mesenteric vein are patent.. GI TRACT: No distention or wall thickening. Mild colonic diverticulosis without CT evidence acute diverticulitis. BONES AND SOFT TISSUES: 0.7 cm metallic foreign body in the right lateral pectoralis muscle.. Degenerative changes in the spine. No suspicious osseous abnormality. Subcentimeter lipoma in the right anterior abdominal wall. (See axial image 61). IMPRESSION:Two indeterminate subcentimeter pulmonary nodules in the left lower lobe measuring upto 0.5 cm. Otherwise no intrathoracic, intra-abdominal or intrapelvic abnormality. Prostamegaly. Signed: Prema Perez MDReport Verified Date/Time: 09/30/2021 15:20:14 Reading Location: [facility] [id number] CT Body Reading Room CT, CHEST, WITH [id number] 15:20:00 Unlisted Reason for Exam - Click Yes and Enter Reason Below->YesIntracranial lesion. Evaluation for mass, infectionUnlisted Reason for Exam->Intracranial lesion. Evaluation for mass, infection [facility] 1955 Sex: MFINAL REPORT TECHNIQUE: CT of the chest, abdomen, and pelvis WITH intravenous contrast and WITHOUT oral contrast. Dose modulation, iterative reconstruction, and/or weight-based adjustment ofthe mA/kV was utilized to reduce the radiation dose to as low as reasonably achievable. INDICATION: U nlisted Reason for ExamIntracranial lesion. Evaluation for mass, infection COMPARISON: None. FINDINGS: LINES/TUBES: None. LUNGS AND AIRWAYS: Central airways are patent. There is mild bilateral lower lobe atelectasis. No focal consolidation.. There are a few small pulmonary nodules left lower lobe. For instance there is a subpleural nodule measuring 0.5 cm. (Axial image 41). There is also a small subpleural nodule measuring 0.4 cm. (Axial image 40).PLEURA: The pleural spaces are clear.HEART AND MEDIASTINUM: The visualized thyroid gland is normal. No significant mediastinal, hilar, or axillary lymphadenopathy. The heart and pericardium are within normal limits. Atherosclerotic calcifications in the thoracic aorta and coronary arteries. HEPATOBILIARY: No focal hepatic lesions. Gallbladder is unremarkable. No biliary ductal dilatation.SPLEEN: No splenomegaly.PANCREAS: No focal masses or ductal dilatation. ADRENALS: No adrenal nodules.KIDNEYS/URETERS: No hydronephrosis, stones, or solid mass lesions. 1.9 cm cyst in the medial interpolar region of the right kidney. 1 cm cyst in the left kidney.PELVIC ORGANS/BLADDER: Prostate is enlarged. There is excreted contrast in the urinary bladder.. PERITONEUM/RETROPERITONEUM: No free air or fluid.LYMPH NODES: No lymphadenopathy.VESSELS: Atherosclerotic changes in the abdominal aorta and branch vessels. No evidence of aneurysmal dilation. Portal vein, splenic vein and superior mesenteric vein are patent.. GI TRACT: No distention or wall thickening. Mild colonic diverticulosis without CT evidence acute diverticulitis. BONES AND SOFT TISSUES: 0.7 cm metallic foreign body in the right lateral pectoralis muscle.. Degenerative changes in the spine. No suspicious osseous abnormality. Subcentimeter lipoma in the right anterior abdominal wall. (See axial image 61). IMPRESSION:Two indeterminate subcentimeter pulmonary nodules in the left lower lobe measuring upto 0.5 cm. Otherwise no intrathoracic, intra-abdominal or intrapelvic abnormality. Prostamegaly. Signed: Prema Perez MDReport Verified Date/Time: 09/30/2021 15:20:14 Reading Location: [address] Body Reading Room HEMOGLOBIN [id number] 11:22:07 Test Item Value Reference Range Interpretation Comments HEMOGLOBIN A1C 7.1 % See_Comment H [Automated m essage] ELECTROPHORESIS ([employer]) The system which (test code = 3811) generated this result transmitted ref erence range: <=5.6%. The reference range was not used to int erpret this result as normal/abnormal . "The A1c is measured using a NGSP-certified method. HbA1c value equal to or greater than 6.5% as thediagnosis cutoff for diabetes. An HbA1c value of 5.7- 6.4% indicates increased risk for diabetes (prediabetes)."Injection Molding Machine Offbearer ID - ADM (CELLAVISION MANUAL DIFF)2021-09-30 09:34:42 Test Item Value Reference Range Interpretation Comments NEUTROPHILS - REL 55 % (CELLAVISION)(BEAKER) (test code = 2816) LYMPHOCYTES - REL 29 % (CELLAVISION)(BEAKER) (test code = 2817) MONOCYTES - REL 6 % (CELLAVISION)(BEAKER) (test code = 2818) EOSINOPHILS - REL 4 % (CELLAVISION)(BEAKER) (test code = 2819) BANDS - REL (CELLAVISION)(BEAKER) 1 % 0-10 (test code = 2826) ATYPICAL LYMPHOCYTES - REL 5 % 0-0 H (CELLAVISION)(BEAKER) (test code = 2829) NEUTROPHILS - ABS 4.90 K/ul 1.78-5.38 (CELLAVISION)(BEAKER) (test code = 2830) LYMPHOCYTES - ABS 2.58 K/ul 1.32-3.57 (CELLAVISION)(BEAKER) (test code = 2831) MONOCYTES - ABS 0.53 K/uL 0.30-0.82 (CELLAVISION)(BEAKER) (test code = 2832) EOSINOPHILS - ABS 0.36 K/uL 0.04-0.54 (CELLAVISION)(BEAKER) (test code = 2834) BANDS - ABS (CELLAVISION)(BEAKER) 0.09 K/uL 0.00-0.80 (test code = 2840) ATYPICAL LYMPHOCYTES - ABS 0.45 K/uL 0.00-0.00 H (CELLAVISION)(BEAKER) (test code = 2858) TOTAL COUNTED (BEAKER) (test code 100 = 1351) MANUAL NRBC PER 100 CELLS (BEAKER) 2 /100 WBC 0-0 H (test code = 1353) WBC MORPHOLOGY (BEAKER) (test code Normal = 487) PLT MORPHOLOGY (BEAKER) (test code Normal = 486) ANISOCYTOSIS (BEAKER) (test code = 1+ few 961) MICROCYTES (BEAKER) (test code = 1+ few 965) POIKILOCYTES (BEAKER) (test code = 1+ few 966) SPHEROCYTES (BEAKER) (test code = 1+ few 768) ARTIFACT (CELLAVISION)(BEAKER) Present (test code = 3432) PLATELET CONCENTRATION Adequate (CELLAVISION)(BEAKER) (test code = 3438) Injection Molding Machine Offbearer ID - Mago comments: Slide comments:POCT-GLUCOSE [id number] 08:31:03 Test Item Value Reference Range Interpretation Comments POC-GLUCOSE METER 137 mg/dL 70-110 H : TESTED A T [facility] 67[address] (BEAKER) (test code = B[place], 1538) [address]: 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 ID = [id number] for Um eh, [place] CT, CTANGIO [id number] 07:24:00Unlisted Reason for Exam - Click Yes and Enter Reason Below->No [facility] 1955 Sex: MFINAL REPORT EXAM/TECHNIQUE: CTA of the head and neck with IV contrast. Noncontrast CT ofthe head was also performed. Dose modulation, iterative reconstruction, and/or weight based adjustment of the mA/kV was utilized to reduce the radiation dose to as low as reasonably achievable. INDICATION: Neuro deficit, stroke. COMPARISON: None. FINDINGS: HEAD Pierce-white differentiation is preserved.No acute intracranial hemorrhage. No extra-axial fluid collection.Punctate hypoattenuation in the right lentiform nucleus may represent remote lacunar infarcts versus prominent perivascular space. Ventricles are normal in appearance. Basal cisterns are patent. No midline shift. Cerebellar tonsils are normal in appearance. Status post bilateral lens surgery. Otherwise, orbits are unremarkable. Right maxillary sinus mucosal thickening. Mastoid air cells are clear. Midline structures are normal. Visualized face and neck are unremarkable. Anterior circulation: Atherosclerosis of the bilateral intracrani al internal carotid arteries with severe left moderate right narrowing. The M1 and M2 branches of the MCA are patent without significant stenosis. The A1 and A2 segments of the anterior cerebral arteries are patent without significant stenosis. Unremarkable appearance of the anterior communicating artery. Distal branches appear patent. No occlusion, significant stenosis, or aneurysm. Posterior circulation: The V4 segments of the vertebral artery are patent without significant stenosis. The bilateralPICAs are patent. The bilateral AICAs are patent. Basilar artery is patent. The bilateral SCAs are patent. The P1 and P2 segments of the [employer] are patent. Unremarkable appearance of the posterior communicating arteries. Distal branches appear patent. No occlusion, significant stenosis, or aneurysm. Venous: No findings of dural or cortical venous thrombosis. NECK Vessels: Conventional three vessel anatomy of the aortic arch. The bilateral common carotid arteries are patent. There is mild atherosclerosis at the carotid bifurcations without stenosis by NASCET criteria. Atherosclerosis at the origins of the vertebral arteries with severe left mild right narrowing. No plaque ulceration or intraluminal thrombus. No occlusion or dissection. Lymph nodes: No lymphadenopathy. Glands: The parotids, submandibular, and thyroid glands are unremarkable. Airway: Unremarkable. Dentition: Numerous periapical lucencies, the largest involving the bilateral maxillary incisors. Osseous: Multilevel spondylosis with severe neural foraminal narrowing at C3-C4 on the left. Upper chest: No focal consolidation or suspicious pulmonary nodule. Mediastinum is unremarkable. Impression: 1.No acute intracranial process. CT ASPECT score 10. No large vessel occlusion. 2.Atherosclerosis of the bilateral intracranial internal carotid arteries with severe left moderate right narrowing.3.3. Atherosclerosis at the origin of the bilateral vertebral arteries with severe left mild right narrowing. Signed: Axel Westfall MDReport Verified Date/Time: 09/30/2021 07:24:21 [facility], CAROTID, [id number] 07:24:00Unlisted Reason for Exam - Click Yes and Enter Reason Below->No [facility] 1955 Sex: MFINAL REPORT EXAM/TECHNIQUE: CTA of the head and neck with IV contrast. Noncontrast CT ofthe head was also performed. Dose modulation, iterative reconstruction, and/or weight based adjustment of the mA/kV was utilized to reduce the radiation dose to as low as reasonably achievable. INDICATION: Neuro deficit, stroke. COMPARISON: None. FINDINGS: HEAD Pierce-white differentiation is preserved.No acute intracranial hemorrhage. No extra-axial fluid collection.Punctate hypoattenuation in the right lentiform nucleus may represent remote lacunar infarcts versus prominent perivascular space. Ventricles are normal in appearance. Basal cisterns are patent. No midline shift. Cerebellar tonsils are normal in appearance. Status post bilateral lens surgery. Otherwise, orbits are unremarkable. Right maxillary sinus mucosal thickening. Mastoid air cells are clear. Midline structures are normal. Visualized face and neck are unremarkable. Anterior circulation: Atherosclerosis of the bilateral intracrani al internal carotid arteries with severe left moderate right narrowing. The M1 and M2 branches of the MCA are patent without significant stenosis. The A1 and A2 segments of the anterior cerebral arteries are patent without significant stenosis. Unremarkable appearance of the anterior communicating artery. Distal branches appear patent. No occlusion, significant stenosis, or aneurysm. Posterior circulation: The V4 segments of the vertebral artery are patent without significant stenosis. The bilateralPICAs are patent. The bilateral AICAs are patent. Basilar artery is patent. The bilateral SCAs are patent. The P1 and P2 segments of the [employer] are patent. Unremarkable appearance of the posterior communicating arteries. Distal branches appear patent. No occlusion, significant stenosis, or aneurysm. Venous: No findings of dural or cortical venous thrombosis. NECK Vessels: Conventional three vessel anatomy of the aortic arch. The bilateral common carotid arteries are patent. There is mild atherosclerosis at the carotid bifurcations without stenosis by NASCET criteria. Atherosclerosis at the origins of the vertebral arteries with severe left mild right narrowing. No plaque ulceration or intraluminal thrombus. No occlusion or dissection. Lymph nodes: No lymphadenopathy. Glands: The parotids, submandibular, and thyroid glands are unremarkable. Airway: Unremarkable. Dentition: Numerous periapical lucencies, the largest involving the bilateral maxillary incisors. Osseous: Multilevel spondylosis with severe neural foraminal narrowing at C3-C4 on the left. Upper chest: No focal consolidation or suspicious pulmonary nodule. Mediastinum is unremarkable. Impression: 1.No acute intracranial process. CT ASPECT score 10. No large vessel occlusion. 2.Atherosclerosis of the bilateral intracranial internal carotid arteries with severe left moderate right narrowing.3.3. Atherosclerosis at the origin of the bilateral vertebral arteries with severe left mild right narrowing. Signed: Axel Westfall MDReport Verified Date/Time: 09/30/2021 07:24:21 CBC W/PLT COUNT & AUTO [id number] 06:18:59 Test Item Value Reference Range Interpretation Comments WHITE BLOOD CELL COUNT (BEAKER) 7.5 K/ L 3.5-10.5 (test code = 775) RED BLOOD CELL COUNT (BEAKER) 4.58 M/ L 4.63-6.08 L (test code = 761) HEMOGLOBIN (BEAKER) (test code = 13.5 GM/DL 13.7-17.5 L 410) HEMATOCRIT (BEAKER) (test code = 39.9 % 40.1-51.0 L 411) MEAN CORPUSCULAR VOLUME (BEAKER) 87.1 fL 79.0-92.2 (test code = 753) MEAN CORPUSCULAR HEMOGLOBIN 29.5 pg 25.7-32.2 (BEAKER) (test code = 751) MEAN CORPUSCULAR HEMOGLOBIN CONC 33.8 GM/DL 32.3-36.5 (BEAKER) (test code = 752) RED CELL DISTRIBUTION WIDTH 11.9 % 11.6-14.4 (BEAKER) (test code = 412) PLATELET COUNT (BEAKER) (test 198 K/CU MM 150-450 code = 756) MEAN PLATELET VOLUME (BEAKER) 10.2 fL 9.4-12.4 (test code = 754) NUCLEATED RED BLOOD CELLS 0 /100 WBC 0-0 (BEAKER) (test code = 413) NEUTROPHILS RELATIVE PERCENT 55 % (BEAKER) (test code = 429) LYMPHOCYTES RELATIVE PERCENT 27 % (BEAKER) (test code = 430) MONOCYTES RELATIVE PERCENT 10 % (BEAKER) (test code = 431) EOSINOPHILS RELATIVE PERCENT 7 % (BEAKER) (test code = 432) BASOPHILS RELATIVE PERCENT 0 % (BEAKER) (test code = 437) NEUTROPHILS ABSOLUTE COUNT 4.17 K/ L 1.78-5.38 (BEAKER) (test code = 670) LYMPHOCYTES ABSOLUTE COUNT 2.05 K/ L 1.32-3.57 (BEAKER) (test code = 414) MONOCYTES ABSOLUTE COUNT (BEAKER) 0.77 K/ L 0.30-0.82 (test code = 415) EOSINOPHILS ABSOLUTE COUNT 0.49 K/ L 0.04-0.54 (BEAKER) (test code = 416) BASOPHILS ABSOLUTE COUNT (BEAKER) 0.03 K/ L 0.01-0.08 (test code = 417) IMMATURE GRANULOCYTES-RELATIVE 0 % 0-1 PERCENT (BEAKER) (test code = 2801) RAD, CHEST, 1 VIEW, NON [id number] 05:46:00Reason for exam:- >dyspneaShould this be performed at the bedside?->Yes [facility] 1955 Sex: MFINAL REPORT RAD, CHEST, 1 VIEW, NON DEPT CLINICAL HISTORY: dyspnea TECHNIQUE: Single view of the chest. COMPARISON: None IMPRESSION: There are no focal infiltrates or effusions. Right lung scarring. No pneumothorax. The cardiomediastinal silhouette is magnified by technique. The osseous structures appear intact. Signed: Michel Pickett MDReport Verified Date/Time: 09/30/2021 05:46:38 VITAMIN B12 AND [id number] 03:43:42 Test Item Value Reference Range Interpretation Comments VITAMIN B12 336 pg/mL 213-816 (BEAKER) (test code = 774) FOLATE (BEAKER) 11.50 ng/mL See_Comment [Automated message] (test code = 362) The system which generated this result transmitted ref erence range: >=7.00. The reference range was not used to interpr et this result as normal/abnormal . Injection Molding Machine Offbearer ID - REED WTSH/FREE T4 IF [id number] 02:03:46 Test Item Value Reference Range Interpretation Comments THYROID STIMULATING HORMONE 3.436 uIU/mL 0.350-4.940 (BEAKER) (test code = 772) Injection Molding Machine Offbearer ID - DBRapid drug screen, [id number] 01:58:41 Test Item Value Reference Range Interpretation Comments Barbiturate Screen Negative Negative (test code = 16937-8) Benzodiazepine Screen Negative Negative (test code = 48888-2) Cocaine (Metab.) Negative Negative Screen (test code = 3397-7) Methadone Screen (test Negative Negative code = 60392-0) Opiate Screen (test Negative Negative code = 51038-8) Cannabinoid Screen Negative Negative (test code = 91904-7) Amph/Methamph Screen Negative Negative (test code = 23928-2) Phencyclidine Screen Negative Negative (test code = 60950-2) pH, UA (test code = 5.5 5.0-8.0 5803-2) DAMIAN (test code = DAMIAN) DRUG CUTOFF CONC.Cocaine 300 ng/mL Cannabinoid 50 ng/mLBenzodiazepine 200 ng/mLBarbiturate 200 ng/mLPhencyclidine 25 ng/mLOpiate 300 ng/mLMethadone 300 ng/mLAmphetamine/ 1000 ng/mL Methamphetamine This assay provides an unconfirmed qualitative test result for the clinical management of patients in emergency situations. Chain of custody not maintained. Some qnfh-yer-avpubze medications, as well as adulterants, may cause inaccurate results. Clinical correlation should be applied. A more comprehensive drug screen or confirmation of a detected drug may be performed upon request.Injection Molding Machine Offbearer ID - DBOperator ID - [auto] Lab Interpretation Normal (test code = 22500-3) [facility], [id number] 01:58:41 Test Item Value Reference Range Interpretation Comments Barbiturate Screen Negative Negative (test code = 81270-7) Benzodiazepine Screen Negative Negative (test code = 63312-9) Cocaine (Metab.) Negative Negative Screen (test code = 3397-7) Methadone Screen (test Negative Negative code = 00151-5) Opiate Screen (test Negative Negative code = 97348-2) Cannabinoid Screen Negative Negative (test code = 08875-5) Amph/Methamph Screen Negative Negative (test code = 02499-1) Phencyclidine Screen Negative Negative (test code = 76550-4) pH, UA (test code = 5.5 5.0-8.0 5803-2) DAMIAN (test code = DAMIAN) DRUG CUTOFF CONC.Cocaine 300 ng/mL Cannabinoid 50 ng/mLBenzodiazepine 200 ng/mLBarbiturate 200 ng/mLPhencyclidine 25 ng/mLOpiate 300 ng/mLMethadone 300 ng/mLAmphetamine/ 1000 ng/mL Methamphetamine This assay provides an unconfirmed qualitative test result for the clinical management of patients in emergency situations. Chain of custody not maintained. Some ohyn-zic-iujiqzu medications, as well as adulterants, may cause inaccurate results. Clinical correlation should be applied. A more comprehensive drug screen or confirmation of a detected drug may be performed upon request.Injection Molding Machine Offbearer ID - DBOperator ID - [auto] Lab Interpretation Normal (test code = 27369-8) [facility], [id number] 01:58:41 Test Item Value Reference Range Interpretation Comments Barbiturate Screen Negative Negative (test code = 29088-1) Benzodiazepine Screen Negative Negative (test code = 21759-6) Cocaine (Metab.) Negative Negative Screen (test code = 3397-7) Methadone Screen (test Negative Negative code = 71792-1) Opiate Screen (test Negative Negative code = 23597-1) Cannabinoid Screen Negative Negative (test code = 77111-4) Amph/Methamph Screen Negative Negative (test code = 22331-6) Phencyclidine Screen Negative Negative (test code = 44115-0) pH, UA (test code = 5.5 5.0-8.0 5803-2) DAMIAN (test code = DAMIAN) DRUG CUTOFF CONC.Cocaine 300 ng/mL Cannabinoid 50 ng/mLBenzodiazepine 200 ng/mLBarbiturate 200 ng/mLPhencyclidine 25 ng/mLOpiate 300 ng/mLMethadone 300 ng/mLAmphetamine/ 1000 ng/mL Methamphetamine This assay provides an unconfirmed qualitative test result for the clinical management of patients in emergency situations. Chain of custody not maintained. Some voys-reg-xpaafgg medications, as well as adulterants, may cause inaccurate results. Clinical correlation should be applied. A more comprehensive drug screen or confirmation of a detected drug may be performed upon request.Injection Molding Machine Offbearer ID - DBOperator ID - [auto] Lab Interpretation Normal (test code = 17460-8) [facility], [id number] 01:58:41 Test Item Value Reference Range Interpretation Comments Barbiturate Screen Negative Negative (test code = 34564-8) Benzodiazepine Screen Negative Negative (test code = 34393-3) Cocaine (Metab.) Negative Negative Screen (test code = 3397-7) Methadone Screen (test Negative Negative code = 46970-6) Opiate Screen (test Negative Negative code = 83273-9) Cannabinoid Screen Negative Negative (test code = 46526-8) Amph/Methamph Screen Negative Negative (test code = 41332-9) Phencyclidine Screen Negative Negative (test code = 38391-9) pH, UA (test code = 5.5 5.0-8.0 5803-2) DAMIAN (test code = DAMIAN) DRUG CUTOFF CONC.Cocaine 300 ng/mL Cannabinoid 50 ng/mLBenzodiazepine 200 ng/mLBarbiturate 200 ng/mLPhencyclidine 25 ng/mLOpiate 300 ng/mLMethadone 300 ng/mLAmphetamine/ 1000 ng/mL Methamphetamine This assay provides an unconfirmed qualitative test result for the clinical management of patients in emergency situations. Chain of custody not maintained. Some lxfq-xke-zpccttt medications, as well as adulterants, may cause inaccurate results. Clinical correlation should be applied. A more comprehensive drug screen or confirmation of a detected drug may be performed upon request.Injection Molding Machine Offbearer ID - DBOperator ID - [auto] Lab Interpretation Normal (test code = 06561-5) [facility], [id number] 01:58:41 Test Item Value Reference Range Interpretation Comments Barbiturate Screen Negative Negative (test code = 99991-6) Benzodiazepine Screen Negative Negative (test code = 16036-3) Cocaine (Metab.) Negative Negative Screen (test code = 3397-7) Methadone Screen (test Negative Negative code = 73338-6) Opiate Screen (test Negative Negative code = 37735-8) Cannabinoid Screen Negative Negative (test code = 77711-3) Amph/Methamph Screen Negative Negative (test code = 08141-4) Phencyclidine Screen Negative Negative (test code = 26847-9) pH, UA (test code = 5.5 5.0-8.0 5803-2) DAMIAN (test code = DAMIAN) DRUG CUTOFF CONC.Cocaine 300 ng/mL Cannabinoid 50 ng/mLBenzodiazepine 200 ng/mLBarbiturate 200 ng/mLPhencyclidine 25 ng/mLOpiate 300 ng/mLMethadone 300 ng/mLAmphetamine/ 1000 ng/mL Methamphetamine This assay provides an unconfirmed qualitative test result for the clinical management of patients in emergency situations. Chain of custody not maintained. Some aduz-csi-goplebv medications, as well as adulterants, may cause inaccurate results. Clinical correlation should be applied. A more comprehensive drug screen or confirmation of a detected drug may be performed upon request.Injection Molding Machine Offbearer ID - DBOperator ID - [auto] Lab Interpretation Normal (test code = 42904-5) [facility], [id number] 01:58:41 Test Item Value Reference Range Interpretation Comments BARBITURATE URINE (BEAKER) (test Negative Negative code = 725) BENZODIAZEPINE SCREEN URINE (BEAKER) Negative Negative (test code = 726) COCAINE (METAB.) SCREEN (BEAKER) Negative Negative (test code = 1164) METHADONE SCREEN (BEAKER) (test code Negative Negative = 1436) OPIATE SCREEN URINE (BEAKER) (test Negative Negative code = 734) CANNABINOID SCREEN URINE (BEAKER) Negative Negative (test code = 727) AMPH/METHAMPH SCREEN (BEAKER) (test Negative Negative code = 1438) PHENCYCLIDINE SCREEN URINE (BEAKER) Negative Negative (test code = 608) PH UA (BEAKER) (test code = 467) 5.5 5.0-8.0 DRUG CUTOFF CONC.Cocaine 300 ng/mL Cannabinoid 50 ng/mLBenzodiazepine 200 ng/mLBarbiturate 200 ng/mLPhencyclidine 25 ng/mLOpiate 300 ng/mLMethadone 300 ng/mLAmphetamine/ 1000 ng/mL MethamphetamineThisassay provides an unconfirmed qualitative test result for the clinical management of patients in emergency situations. Chain of custody not maintained. Some pjef-xdt-lnmtgpy medications, as well as adulterants, may cause inaccurate results. Clinical correlation should be applied. A more comprehensive drug screen or confirmation of a detected drug may be performed upon request.Injection Molding Machine Offbearer ID - DBOperatorID - [auto] COMPLEMENT COMPONENT [id number] 01:42:42 Test Item Value Reference Range Interpretation Comments C4 COMPLEMENT (BEAKER) (test code = 38 mg/dL 15-57 394) Injection Molding Machine Offbearer ID - DBCOMPLEMENT COMPONENT [id number] 01:42:42 Test Item Value Reference Range Interpretation Comments C3 COMPLEMENT (BEAKER) (test code = 115 mg/dL 82-193 393) Injection Molding Machine Offbearer ID - [id number] 01:42:01 Test Item Value Reference Range Interpretation Comments MAGNESIUM (BEAKER) (test code = 1.7 mg/dL 1.6-2.6 627) Injection Molding Machine Offbearer ID - DBT4, [id number] 00:12:46 Test Item Value Reference Range Interpretation Comments FREE T4 (BEAKER) (test code = 655) 1.04 ng/dL 0.70-1.48 Injection Molding Machine Offbearer ID - [id number] 00:12:46 Test Item Value Reference Range Interpretation Comments THYROID STIMULATING HORMONE 3.874 uIU/mL 0.350-4.940 (BEAKER) (test code = 772) Injection Molding Machine Offbearer ID - DBB-TYPE NATRIURETIC FACTOR (BNP)2021-09-29 23:58:15 Test Item Value Reference Range Interpretation Comments B-TYPE NATRIURETIC PEPTIDE (BEAKER) 62 pg/mL 0-100 (test code = 700) Injection Molding Machine Offbearer ID - [id number] 23:54:32 Test Item Value Reference Range Interpretation Comments MAGNESIUM (BEAKER) (test code = 1.9 mg/dL 1.6-2.6 627) Injection Molding Machine Offbearer ID - DBLIPID [id number] 23:54:32 Test Item Value Reference Range Interpretation Comments TRIGLYCERIDES (BEAKER) (test code = 97 mg/dL 540) CHOLESTEROL (BEAKER) (test code = 142 mg/dL 631) HDL CHOLESTEROL (BEAKER) (test code 35 mg/dL = 976) LDL CHOLESTEROL CALCULATED (BEAKER) 88 mg/dL (test code = 633) Triglyceride Reference Range: Low Risk <150 Borderline 150-199 High Risk 200- 499 Very High Risk >=500Cholesterol Reference Range: Low Risk <200 Borderline 200-239 High Risk >240HDL Cholesterol Reference Range: Low Risk >=60 High Risk <40LDL Cholesterol Reference Range: Optimal <100 Near Optimal 100-129 Borderline 130-159 High 160-189 Very High >=190 Injection Molding Machine Offbearer ID - DBC-REACTIVE [id number] 23:54:32 Test Item Value Reference Range Interpretation Comments C-REACTIVE PROTEIN (BEAKER) (test 0.09 mg/dL 0.00-0.50 code = 676) Injection Molding Machine Offbearer ID - DBCOMPREHENSIVE METABOLIC [id number] 23:54:31 Test Item Value Reference Range Interpretation Comments TOTAL PROTEIN 7.5 gm/dL 6.0-8.3 (BEAKER) (test code = 770) ALBUMIN (BEAKER) 4.4 g/dL 3.5-5.0 (test code = 1145) ALKALINE PHOSPHATASE 79 U/L 40-150 (BEAKER) (test code = 346) BILIRUBIN TOTAL 0.6 mg/dL 0.2-1.2 (BEAKER) (test code = 377) SODIUM (BEAKER) (test 139 meq/L 136-145 code = 381) POTASSIUM (BEAKER) 3.6 meq/L 3.5-5.1 (test code = 379) CHLORIDE (BEAKER) 104 meq/L 98-107 (test code = 382) CO2 (BEAKER) (test 24 meq/L 22-29 code = 355) BLOOD UREA NITROGEN 14 mg/dL 7-21 (BEAKER) (test code = 354) CREATININE (BEAKER) 0.76 mg/dL 0.57-1.25 (test code = 358) GLUCOSE RANDOM 107 mg/dL 70-105 H (BEAKER) (test code = 652) CALCIUM (BEAKER) 9.7 mg/dL 8.4-10.2 (test code = 697) AST (SGOT) (BEAKER) 23 U/L 5-34 (test code = 353) ALT (SGPT) (BEAKER) 39 U/L 6-55 (test code = 347) EGFR (BEAKER) (test 102 ESTIMATE D GFR IS code = 1092) mL/min/1.73 sq NOT ACCURA TE m CREATININE CLEARANCE IN PREDICTING GLOMERULAR FILTRATION RATE . ESTIMATED GFR I S NOT APPLICABLE FOR DIALYSIS PATIEN TS. Injection Molding Machine Offbearer ID - [id number] 23:45:27 Test Item Value Reference Range Interpretation Comments PARTIAL THROMBOPLASTIN TIME 35.3 seconds 22.5-36.0 (BEAKER) (test code = 760) PROTHROMBIN TIME/[id number] 23:45:26 Test Item Value Reference Range Interpretation Comments PROTIME (BEAKER) 13.6 seconds 11.9-14.2 (test code = 759) INR (BEAKER) (test 1.05 See_Comment [Automat ed message] code = 370) The system [employer] generated this result transmitted ref erence range: <=5.90. The reference range was not used to int erpret this result as normal/abnormal . RECOMMENDED COUMADIN/WARFARIN INR THERAPY RANGESSTANDARD DOSE: 2.0 - 3.0 Includes: PROPHYLAXIS for venous thrombosis, systemic embolization; TREATMENT for venous thrombosis and/or pulmonary embolus.HIGH RISK: Target INR is 2.5-3.5 for patients with mechanical heart valves.PROTHROMBIN TIME/[id number] 23:44:45 Test Item Value Reference Range Interpretation Comments PROTIME (BEAKER) 13.2 seconds 11.9-14.2 (test code = 759) INR (BEAKER) (test 1.02 See_Comment [Automat ed message] code = 370) The system [employer] generated this result transmitted ref erence range: <=5.90. The reference range was not used to int erpret this result as normal/abnormal . RECOMMENDED COUMADIN/WARFARIN INR THERAPY RANGESSTANDARD DOSE: 2.0 - 3.0 Includes: PROPHYLAXIS for venous thrombosis, systemic embolization; TREATMENT for venous thrombosis and/or pulmonary embolus.HIGH RISK: Target INR is 2.5-3.5 for patients with mechanical heart valves.CBC WITH PLATELET COUNT + MANUAL DIFF 2021-09-29 23:42:06 Test Item Value Reference Range Interpretation Comments WHITE BLOOD CELL COUNT (BEAKER) 8.9 K/ L 3.5-10.5 (test code = 775) RED BLOOD CELL COUNT (BEAKER) 4.71 M/ L 4.63-6.08 (test code = 761) HEMOGLOBIN (BEAKER) (test code = 14.0 GM/DL 13.7-17.5 410) HEMATOCRIT (BEAKER) (test code = 41.2 % 40.1-51.0 411) MEAN CORPUSCULAR VOLUME (BEAKER) 87.5 fL 79.0-92.2 (test code = 753) MEAN CORPUSCULAR HEMOGLOBIN 29.7 pg 25.7-32.2 (BEAKER) (test code = 751) MEAN CORPUSCULAR HEMOGLOBIN CONC 34.0 GM/DL 32.3-36.5 (BEAKER) (test code = 752) RED CELL DISTRIBUTION WIDTH 11.9 % 11.6-14.4 (BEAKER) (test code = 412) PLATELET COUNT (BEAKER) (test 194 K/CU MM 150-450 code = 756) MEAN PLATELET VOLUME (BEAKER) 10.1 fL 9.4-12.4 (test code = 754) NUCLEATED RED BLOOD CELLS 0 /100 WBC 0-0 (BEAKER) (test code = 413) CBC W/PLT COUNT & AUTO [id number] 23:42:05 Test Item Value Reference Range Interpretation Comments WHITE BLOOD CELL COUNT (BEAKER) 8.9 K/ L 3.5-10.5 (test code = 775) RED BLOOD CELL COUNT (BEAKER) 4.71 M/ L 4.63-6.08 (test code = 761) HEMOGLOBIN (BEAKER) (test code = 14.0 GM/DL 13.7-17.5 410) HEMATOCRIT (BEAKER) (test code = 41.2 % 40.1-51.0 411) MEAN CORPUSCULAR VOLUME (BEAKER) 87.5 fL 79.0-92.2 (test code = 753) MEAN CORPUSCULAR HEMOGLOBIN 29.7 pg 25.7-32.2 (BEAKER) (test code = 751) MEAN CORPUSCULAR HEMOGLOBIN CONC 34.0 GM/DL 32.3-36.5 (BEAKER) (test code = 752) RED CELL DISTRIBUTION WIDTH 11.9 % 11.6-14.4 (BEAKER) (test code = 412) PLATELET COUNT (BEAKER) (test 194 K/CU MM 150-450 code = 756) MEAN PLATELET VOLUME (BEAKER) 10.1 fL 9.4-12.4 (test code = 754) NUCLEATED RED BLOOD CELLS 0 /100 WBC 0-0 (BEAKER) (test code = 413) NEUTROPHILS RELATIVE PERCENT 56 % (BEAKER) (test code = 429) LYMPHOCYTES RELATIVE PERCENT 30 % (BEAKER) (test code = 430) MONOCYTES RELATIVE PERCENT 9 % (BEAKER) (test code = 431) EOSINOPHILS RELATIVE PERCENT 6 % (BEAKER) (test code = 432) BASOPHILS RELATIVE PERCENT 0 % (BEAKER) (test code = 437) NEUTROPHILS ABSOLUTE COUNT 4.92 K/ L 1.78-5.38 (BEAKER) (test code = 670) LYMPHOCYTES ABSOLUTE COUNT 2.61 K/ L 1.32-3.57 (BEAKER) (test code = 414) MONOCYTES ABSOLUTE COUNT (BEAKER) 0.76 K/ L 0.30-0.82 (test code = 415) EOSINOPHILS ABSOLUTE COUNT 0.50 K/ L 0.04-0.54 (BEAKER) (test code = 416) BASOPHILS ABSOLUTE COUNT (BEAKER) 0.03 K/ L 0.01-0.08 (test code = 417) IMMATURE GRANULOCYTES-RELATIVE 0 % 0-1 PERCENT (BEAKER) (test code = 2801) POCT-GLUCOSE [id number] 22:23:02 Test Item Value Reference Range Interpretation Comments POC-GLUCOSE METER 107 mg/dL 70-110 : TESTED A T [facility] 6720 (BEAKER) (test code = [place], 1538) [address]: 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 ID = [id number] for DE NNIS, MARGOTH TROPONIN [id number] 17:05:44 Test Item Value Reference Interpretation Comments Range TROPONIN I (test 0.004 ng/mL See_Comment [Automated code = 5260687507) message] The system which generated this result transmitted reference range : <=0.034. The reference range was not used to interpret this result as normal/abnormal . DAMIAN (test code = Reference (Normal) DAMIAN) Range (defined by the 99th percentile reference [...] biotin. Lab Interpretation Normal (test code = 99358-4) [facility] [id number] 17:02:41 Test Item Value Reference Range Interpretation Comments NT-proBNP (test code 189 pg/mL See_Comment H [Autom ated = 1402207683) message] The system which generated this result transmitted reference range : <=125. The reference range was not used to interpret this result as normal/abnormal . DAMIAN (test code = DAMIAN) Biotin has been reported to cause a negative bias, interpret results relative to patient's use of biotin. Lab Interpretation Abnormal (test code = 28128-4) [facility] / [id number] 16:54:00 Test Item Value Reference Range Interpretation [...] tions. Lab Interpretation (test Normal code = 72509-7) [facility] MET[facility]OLIC PANEL ([id number] 16:53:21 Test Item Value Reference Range Interpretation Comments NA (test code = 137 mmol/L 135-145 3273291667) K (test code = 4.1 mmol/L 3.5-5.0 7432805581) CL (test code = 99 mmol/L 98-108 7008085350) CO2 TOTAL (test code = 27 mmol/L 23-31 6487427092) AGAP (test code = 2-16 5904700838) BUN (test code = 13 mg/dL 7-23 6864326585) GLUCOSE (test code = 191 mg/dL 70-110 H 5979302278) CREATININE (test code = 0.68 mg/dL 0.60-1.25 9621002689) TOTAL BILI (test code = 0.5 mg/dL 0.1-1.9 9401541735) CALCIUM (test code = 9.7 mg/dL 8.6-10.6 1432570821) T PROTEIN (test code = 7.0 g/dL 6.3-8.2 6683408287) ALBUMIN (test code = 4.4 g/dL 3.5-5.0 1797897100) ALK PHOS (test code = 68 U/L 34-122 2247034114) ALTv (test code = 30 U/L 5-50 2-6) AST(SGOT) (test code = 28 U/L 13-40 0179904561) eGFR (test code = mL/min/1.73m2 6106891400) DAMIAN (test code = DAMIAN) Association of [...] tests). Lab Interpretation Abnormal (test code = 29678-5) [facility] WITH [id number] 16:48:42 Test Item Value Reference Range Interpretation Comments WBC (test code = See_Comment [Automated 5090-2) message] The sy stem which generated this [...] (test code = 37.1 fL 38.5-51.6 L 15345-8) RDW-CV (test code = 11.6 % 12.1-15.4 L 788-0) PLT (test code = See_Comment [Automated 777-3) message] The sy stem which generated this result transmitted reference range : 150 - 328 10*3/ ?L. The reference r serg was not used to interpret this result as normal/abnormal . MPV (test code = 10.0 fL 9.8-13.0 70329-6) NRBC/100 WBC (test See_Comment [Automat ed code = 2993731972) message] The system which generated this result transmitted reference range : 0.0 - 10.0 /100 WBCs. The refer ence range was not u sed to interpret th is result as normal/abnormal . NRBC x10^3 (test code <0.01 See_Comment [Auto mated = 5192688923) message] The s ystem which generated this result transmitted reference range : 10*3/?L. The reference range was not used to interpret this result as normal/abnormal . GRAN MAT (NEUT) % 55.4 % (test code = 770-8) IMM GRAN % (test code 0.30 % = 7144840135) LYMPH % (test code = 28.3 % 736-9) MONO % (test code = 10.1 % 5905-5) EOS % (test code = 5.4 % 713-8) BASO % (test code = 0.5 % 706-2) GRAN MAT x10^3(ANC) 3.66 10*3/uL 1.99-6.95 (test code = 4518877881) IMM GRAN x10^3 (test <0.03 0.00-0.06 code = 0196425884) LYMPH x10^3 (test code 1.87 10*3/uL 1.09-3.23 = 731-0) MONO x10^3 (test code 0.67 10*3/uL 0.36-1.02 = 742-7) EOS x10^3 (test code = 0.36 10*3/uL 0.06-0.53 711-2) BASO x10^3 (test code 0.03 10*3/uL 0.01-0.09 = 704-7) Lab Interpretation Abnormal (test code = 08597-4) [facility]
[2022-05-27 00:15] LABS: Absolute Lymphocytes (CBC) 1.1 K/uL (0.7-4.9); Hematocrit 44.1 % (39.6-49.0); MCV 83.3 fL (80-100); MPV 7.9 fL (7.6-11.3); RBC Red Blood Cell Count 5.29 M/uL (4.33-5.43)
[2022-05-27 00:27] LABS: Protime INR 1.07
[2022-05-27 00:36] LABS: Albumin 4.1 g/dL (3.4-5.0); Bilirubin Direct 0.3 mg/dL (0-0.2); Bilirubin Total 0.8 mg/dL (0.2-1.0); Magnesium 1.9 mg/dL (1.6-2.4); Protein, Total 8.2 g/dL (6.4-8.2); Troponin High Sensitivity 18.5 pg/mL (<58.9)
[2022-05-27] MEDS ORDERED: NA CHLORIDE 0.9% 1,000 ML ONE (01:21)
--- NOTE | 2022-05-27 01:31 | EDPHYS ---
Physician Documentation [facility] Name: Charlie Vences Jr Age: 66 yrs Sex: Male : 1955 Arrival Date: 05/26/2022 Time: 23:00 Bed 19 Private MD: ED Physician Eleuterio Khan HPI: 05/26 23:56 This 66 yrs old Male presents to ER via Wheelchair with complaints of High cp Blood Pressure, Headache, Decreased Appetite, Weakness. 23:56 The patient's problem is reported as weakness, that is generalized. cp 23:56 Onset: The symptoms/episode began/occurred 4 day(s) ago. Duration: The episode is cp continuous. The patient has elevated blood pressure and discovered this at home, with a home device. Associated signs and symptoms: Pertinent positives: confusion, headache, decreased appetite. Historical: - Allergies: 23:39 No Known Allergies; ha1 - PMHx: 23:39 Diabetes - NIDDM; Hypertension; ha1 - PSHx: 23:39 Coronary artery bypass graft; ha1 - Immunization history:: Adult Immunizations up to date. - Social history:: Smoking status: Patient denies any tobacco usage or history of. ROS: 05/27 00:00 Constitutional: Positive for poor PO intake, Negative for body aches, chills, fever. cp 00:00 Eyes: Negative for injury, pain, redness, and discharge. cp 00:00 ENT: Positive for difficulty swallowing, Negative for drainage from ear(s), ear pain, sore throat, difficulty handling secretions. 00:00 Cardiovascular: Negative for chest pain, edema. 00:00 Respiratory: Negative for cough, shortness of breath, wheezing. 00:00 Abdomen/GI: Positive for vomiting, decreased appetite, Negative for abdominal pain, diarrhea, constipation, black/tarry stool, rectal bleeding. 00:00 : Negative for urinary symptoms. 00:00 Skin: Negative for cellulitis, rash. 00:00 Neuro: Positive for altered mental status, weakness, Negative for headache, syncope. 00:00 All other systems are negative. Exam: 00:05 Constitutional: The patient appears in no acute distress, alert, awake, cp non-diaphoretic, non-toxic, well developed, well nourished. 00:05 Head/Face: Normocephalic, atraumatic. cp 00:05 Eyes: Periorbital structures: appear normal, Pupils: equal, round, and reactive to light and accomodation, Extraocular movements: intact throughout, Conjunctiva: normal, no exudate, no injection, Sclera: no appreciated abnormality, Lids and lashes: appear normal, bilaterally. 00:05 ENT: External ear(s): are unremarkable, Nose: is normal, Mouth: Lips: dry, Oral mucosa: dry, Posterior pharynx: Airway: no evidence of obstruction, patent, swelling, is not appreciated, erythema, is not appreciated, exudate, is not appreciated. 00:05 Neck: ROM/movement: is normal, is supple, without pain, no range of motions limitations, no meningismus. 00:05 Chest/axilla: Inspection: normal, Palpation: is normal, no crepitus, no tenderness. 00:05 Cardiovascular: Rate: normal, Rhythm: regular, Edema: is not appreciated, JVD: is not appreciated. 00:05 Respiratory: the patient does not display signs of respiratory distress, Respirations: normal, no use of accessory muscles, no retractions, labored breathing, is not present, Breath sounds: are clear throughout, no decreased breath sounds, no stridor, no wheezing. 00:05 Abdomen/GI: Inspection: abdomen appears normal, Bowel sounds: active, all quadrants, Palpation: abdomen is soft and non-tender, in all quadrants. 00:05 Neuro: Orientation: to person, Mentation: able to follow commands, slow to respond, Motor: moves all fours, general weakness, Sensation: no obvious gross deficits. 00:18 ECG was reviewed by the Attending Physician. cp 00:45 Radiologist reports: no acute findings cp Vital Signs: 05/26 23:34 BP 177 / 108; Pulse 92; Resp 14 S; Temp 98.1(O); Pulse Ox 94% on R/A; Weight 86.18 kg; ha1 Height 5 ft. 6 in. (167.64 cm); Pain 0/10; 23:34 Body Mass Index 30.67 (86.18 kg, 167.64 cm) ha1 MDM: 23:23 Patient medically screened. cp 23:56 ED course: Patient is not a candidate for tpa as reports onset of weakness has cp been past 3-4 days. 05/27 01:15 Data reviewed: vital signs, nurses notes, lab test result(s), EKG, radiologic studies, cp CT scan, plain films. 01:15 Test interpretation: by ED physician or midlevel provider: ECG, plain radiologic cp studies. 01:55 Physician consultation: Dell Whaley MD was called at 01:45, was contacted at 01:45, cp regarding consult, patient's condition, would like medications started, Keppra for seizures. Give 1000mg now and start 500 mg bid. 05/26 23:56 Order name: Basic Metabolic Panel; Complete Time: 01:13 05/27 01:13 Interpretation: Normal except: K 3.0; GLUC 142; BUN 23; GFR 81. 05/26 23:56 Order name: CBC with Diff; Complete Time: 01:13 05/27 01:13 Interpretation: Normal except: FRANKLIN% 76.1; LYM% 12.0. 05/26 23:56 Order name: LFT's; Complete Time: 01:13 05/26 23:56 Order name: Magnesium; Complete Time: 01:13 05/26 23:56 Order name: NT PRO-BNP; Complete Time: 01:13 05/26 23:56 Order name: PT-INR; Complete Time: 01:13 05/26 23:56 Order name: Troponin HS; Complete Time: 01:13 05/26 23:56 Order name: Urine Microscopic Only; Complete Time: 03:53 05/27 01:13 Order name: COVID-19/FLU A+B; Complete Time: 03:53 05/27 01:18 Order name: Lactate w/ 2H reflex if indic.; Complete Time: 03:53 05/27 01:18 Order name: Procalcitonin; Complete Time: 03:53 05/27 01:18 Order name: Blood Culture Adult (2) 05/27 03:36 Order name: Urine Dipstick-Ancillary; Complete Time: 03:53 EDMS 05/27 05:20 Order name: Lactate Sepsis 2 HR Follow-up; Complete Time: 05:59 EDMS 05/26 23:56 Order name: XRAY Chest (1 view) 05/26 23:56 Order name: EKG; Complete Time: 23:56 05/26 23:56 Order name: Cardiac monitoring; Complete Time: 00:09 05/26 23:56 Order name: EKG - Nurse/Tech; Complete Time: 00:10 05/26 23:56 Order name: IV Saline Lock; Complete Time: 00:10 05/26 23:56 Order name: Labs collected and sent; Complete Time: 00:10 05/26 23:56 Order name: O2 Per Protocol; Complete Time: 00:10 05/26 23:56 Order name: O2 Sat Monitoring; Complete Time: 00:10 05/26 23:56 Order name: CT Head Brain wo Cont 05/26 23:56 Order name: Urine Dipstick-Ancillary (obtain specimen); Complete Time: 04:37 05/27 01:29 Order name: Swallow Screen; Complete Time: 03:44 la1 05/27 01:30 Order name: Misc. Order: Document NIH; Complete Time: 03:45 la1 05/27 01:57 Order name: NPO; Complete Time: 01:59 la1 05/27 01:58 Order name: Straight Cath; Complete Time: 03:30 la1 EC:18 Rate is 87 beats/min. Rhythm is regular. DC interval is normal. QRS interval is cp prolonged at 104 msec. QT interval is prolonged at 408 msec. T waves are Inverted in leads I, aVL. Interpreted by me. Reviewed by me. Administered Medications: 01:19 Drug: NS 0.9% 500 ml Route: IV; Rate: bolus; Site: right antecubital; tw5 04:36 Follow up: Response: No adverse reaction; IV Status: Completed infusion; IV Intake: tw5 500ml 01:19 Drug: NS 0.9% 500 ml Route: IV; Rate: 100 ml/hr; Site: right antecubital; tw5 01:57 CANCELLED (Other Intervention Used): Aspirin Chewable Tablet 324 mg PO once; 81 mg la1 tablets x 4 02:18 Drug: hydrALAZINE 5 mg Route: IVP; Site: right antecubital; tw5 02:50 Follow up: Response: No adverse reaction; Blood pressure is lowered tw5 02:20 Drug: Keppra (levETIRAcetam) 1000 mg Route: IV; Rate: calculated rate; Site: right tw5 antecubital; 03:10 Follow up: Response: No adverse reaction; IV Status: Completed infusion; IV Intake: tw5 100ml 02:40 Drug: Aspirin Suppository 300 mg Route: DC; tw5 04:34 Follow up: Response: No adverse reaction tw5 03:29 Drug: Potassium Chloride 20 mEq Route: IV; Rate: calculated rate; Site: right tw5 antecubital; Disposition: 19:09 Co-signature as Attending Physician, Eleuterio Khan MD I agree with the assessment and rt plan of care. Disposition Summary: 05/27/22 01:31 Hospitalization Ordered Hospitalization Status: Inpatient Admission cp Provider: Tono Dobbs cp Condition: Fair cp Problem: new cp Symptoms: are unchanged cp Bed/Room Type: Standard cp Location: Telemetry/MedSurg (Inpatient)(05/27/22 05:40) mw Room Assignment: [facility](05/27/22 05:40) mw Diagnosis - Altered mental status, unspecified cp - Muscle weakness (generalized) cp Forms: - Medication Reconciliation Form cp - SBAR form cp Signatures: Dispatcher [employer] EDPA Nabila Lorenzo RN RN mw Attema, Lee, MARKETING RESEARCH INTERN-C MARKETING RESEARCH INTERN-Cla1 Herrera Dhaliwal PA PA cp Esperanza Barnes tw5 Mihaela Nicole RN RN ha1 Eleuterio Khan MD MD rt Corrections: (The following items were deleted from the chart) 01:36 01:31 Telemetry/MedSurg (Inpatient) cp mw 01:36 01:31 cp mw 01:57 01:30 Aspirin Chewable Tablet 324 mg PO once; 81 mg tablets x 4 ordered. la1 la1 01:57 01:57 Aspirin Chewable Tablet 324 mg PO once; 81 mg tablets x 4 ordered. la1 la1 05:40 01:36 [facility] ER HOLD mw mw 05:40 01:36 ERHOLD- mw mw
--- NOTE | 2022-05-27 01:31 | ER ---
Nurse's Notes [facility] Name: Charlie Vences Jr Age: 66 yrs Sex: Male : 1955 Arrival Date: 05/26/2022 Time: 23:00 Bed 19 Private MD: Diagnosis: Altered mental status, unspecified;Muscle weakness (generalized) Presentation: 05/26 23:34 Chief complaint: Patient's son or daughter states: his blood pressure has been really ha1 high, he has difficulty swallowing, and appetite has decreased. Coronavirus screen: Vaccine status: Patient reports receiving the 2nd dose of the covid vaccine. Ebola Screen: No symptoms or risks identified at this time. Initial Sepsis Screen: Does the patient meet any 2 criteria? No. Patient's initial sepsis screen is negative. Does the patient have a suspected source of infection? No. Patient's initial sepsis screen is negative. Risk Assessment: Do you want to hurt yourself or someone else? Patient reports no desire to harm self or others. Onset of symptoms was May 26, 2022. 23:34 Method Of Arrival: Wheelchair ha1 23:34 Acuity: AIMEE 3 ha1 Triage Assessment: 23:39 General: Appears comfortable, Behavior is calm, cooperative. Pain: Complains of pain in ha1 head Pain does not radiate. Pain currently is 3 out of 10 on a pain scale. Pain began suddenly, Also complains of no other associated symptoms. EENT: Parent/caregiver reports the patient having difficulty swallowing since three days ago. Neuro: Level of Consciousness is awake, alert, obeys commands, Oriented to person, place, time, situation. Cardiovascular: Capillary refill < 3 seconds Patient's skin is warm and dry. Respiratory: Airway is patent Trachea midline Respiratory effort is even, unlabored, Respiratory pattern is regular, symmetrical. GI: No signs and/or symptoms were reported involving the gastrointestinal system. Abdomen is flat, non-distended, Bowel sounds present X 4 quads. : No signs and/or symptoms were reported regarding the genitourinary system. Derm: Skin is normal. Musculoskeletal: Circulation, motion, and sensation intact. Range of motion: intact in all extremities. Historical: - Allergies: 23:39 No Known Allergies; ha1 - PMHx: 23:39 Diabetes - NIDDM; Hypertension; ha1 - PSHx: 23:39 Coronary artery bypass graft; ha1 - Immunization history:: Adult Immunizations up to date. - Social history:: Smoking status: Patient denies any tobacco usage or history of. Screenin/25 03:42 Abuse screen: Denies threats or abuse. Denies injuries from another. Nutritional tw5 screening: Difficulty chewing/swallowing? Yes. Tuberculosis screening: No symptoms or risk factors identified. Assessment: 05/26 23:45 General: see triage assessment. ha1 05/27 00:40 Reassessment: Patient and/or family updated on plan of care and expected duration. Pain ha1 level reassessed. Patient is alert, oriented x 3, equal unlabored respirations, skin warm/dry/pink. back from CT. 01:40 Reassessment: Patient and/or family updated on plan of care and expected duration. Pain tw5 level reassessed. Patient is alert, oriented x 3, equal unlabored respirations, skin warm/dry/pink. Vital Signs: 05/26 23:34 BP 177 / 108; Pulse 92; Resp 14 S; Temp 98.1(O); Pulse Ox 94% on R/A; Weight 86.18 kg; ha1 Height 5 ft. 6 in. (167.64 cm); Pain 0/10; 23:34 Body Mass Index 30.67 (86.18 kg, 167.64 cm) ha1 ED Course: 23:00 Patient arrived in ED. ja2 23:13 Herrera Dhaliwal PA is PHCP. cp 23:13 Eleuterio Khan MD is Attending Physician. cp 23:34 Mihaela Nicole RN is Primary Nurse. ha1 23:39 Triage completed. ha1 23:39 Arm band placed on right wrist. ha1 23:40 Patient has correct armband on for positive identification. Placed in gown. Bed in low tw5 position. Call light in reach. Side rails up X 1. Adult w/ patient. 05/27 00:05 No provider procedures requiring assistance completed. Inserted saline lock: 20 gauge tw5 in right antecubital area, using aseptic technique. Blood collected. 00:10 Basic Metabolic Panel Sent. ha1 00:10 CBC with Diff Sent. ha1 00:10 LFT's Sent. ha1 00:10 Magnesium Sent. ha1 00:10 NT PRO-BNP Sent. ha1 00:10 PT-INR Sent. ha1 00:10 Troponin HS Sent. ha1 00:22 XRAY Chest (1 view) In Process Unspecified. EDMS 00:48 CT Head Brain wo Cont In Process Unspecified. EDMS 01:30 Tono Dobbs MD is Hospitalizing Provider. cp 04:37 Blood Culture Adult (2) Sent. tw5 Administered Medications: 01:19 Drug: NS 0.9% 500 ml Route: IV; Rate: bolus; Site: right antecubital; tw5 04:36 Follow up: Response: No adverse reaction; IV Status: Completed infusion; IV Intake: tw5 500ml 01:19 Drug: NS 0.9% 500 ml Route: IV; Rate: 100 ml/hr; Site: right antecubital; tw5 01:57 CANCELLED (Other Intervention Used): Aspirin Chewable Tablet 324 mg PO once; 81 mg la1 tablets x 4 02:18 Drug: hydrALAZINE 5 mg Route: IVP; Site: right antecubital; tw5 02:50 Follow up: Response: No adverse reaction; Blood pressure is lowered tw5 02:20 Drug: Keppra (levETIRAcetam) 1000 mg Route: IV; Rate: calculated rate; Site: right tw5 antecubital; 03:10 Follow up: Response: No adverse reaction; IV Status: Completed infusion; IV Intake: tw5 100ml 02:40 Drug: Aspirin Suppository 300 mg Route: HI; tw5 04:34 Follow up: Response: No adverse reaction tw5 03:29 Drug: Potassium Chloride 20 mEq Route: IV; Rate: calculated rate; Site: right tw5 antecubital; Intake: 03:10 IV: 100ml; Total: 100ml. tw5 04:36 IV: 500ml; Total: 600ml. tw5 Outcome: 01:31 Decision to Hospitalize by Provider. cp 08:09 Admitted to Med/surg accompanied by tech, family with patient, via stretcher, room 411, ko1 with chart. 08:09 Condition: stable 08:09 Instructed on the need for admit. 08:10 Patient left the ED. ko1 Signatures: Dispatcher [employer] EDAK Herrera Dhaliwal PA PA cp Alexander, Jessica ja2 Wood, Tiffany tw5 Mihaela Nicole RN RN ha1 Esthela Conway, BRITT RN ko1 Clif Weaver [facility]
[2022-05-27] MEDS ORDERED: HYDRALAZINE HCL 20 MG/ML VIAL ONE (02:06)
[2022-05-27] MEDS ORDERED: LEVETIRACETAM 500 MG/5 ML VIAL IV ONE (02:07)
[2022-05-27] MEDS ORDERED: NA CHLORIDE 0.9% 100 ML IV ONE (02:11)
--- NOTE | 2022-05-27 02:16 | P.HP ---
Certification for Inpatient Patient admitted to: Inpatient With expected LOS: >2 Midnights Patient will require the following post-hospital care: None Practitioner: I am a practitioner with admitting privileges, knowledge of patient current condition, hospital course, and medical plan of care. Services: Services provided to patient in accordance with Admission requirements found in Title 42 Section 412.3 of the Code of Federal Regulations Patient History Date of Service: 05/27/22 Reason for admission: AMS History of Present Illness: 66-year-old male with history of vpn-iygqyrg-ttzmxntmu diabetes, previous ischemic CVA, glioblastoma s/p resection on oral chemotherapy monthly status post radiation, hypertension, CAD status post CABG presents the emergency department for progressive weakness, altered mental status. Family reports over the course of the last 1 to 2 weeks has had progressive weakness in the last 3 to 4 days has been having slurred speech and confusion, appears to be hallucinating. Patient was evaluated here in the emergency department his labs were significant for a potassium of 3.0 glucose 142 BNP 293 chest x-ray negative for acute findings CT head shows previous CVA findings, postsurgical changes left temporal area related to previous glioblastoma excision with no other acute findings. Patient globally confused, appears encephalopathic questionable left- sided facial droop no other focal neurological deficits. Family does report that he had difficulty with swallowing the past 2 days including choking on his medication/vomiting after eating/drinking. He is made to be n.p.o. at this time, case was discussed with neurology by ED provider who recommends admission, seizure prophylaxis with Keppra. Allergies No Known Allergies Allergy (Unverified 10/12/11 10:05) - Past Medical/Surgical History -: Fjt-cpkokrv-eydsqvkte diabetes -: Ischemic CVA -: CAD status post CABG -: Glioblastoma status post excision/radiation/monthly oral chemo -: Hypertension -: CABG -: Glioblastoma excision 2021 Psychosocial/ Personal History: Patient lives at home with his , daughter. - Family History Mother -: Diabetes Father -: Cancer - Social History Smoking Status: Never smoker Alcohol use: No CD- Drugs: No Caffeine use: Yes Place of Residence: Home Review of Systems AMS Physical Examination - Physical Exam General: Alert, In no apparent distress, Oriented x1, Confused HEENT: Atraumatic, PERRLA, Mucous membr. moist/pink, EOMI, Sclerae nonicteric Neck: Supple, 2+ carotid pulse no bruit, No LAD, Without JVD or thyroid abnormality Respiratory: Clear to auscultation bilaterally, Normal air movement Cardiovascular: No edema, Regular rate/rhythm, Normal S1 S2 Capillary refill: <2 Seconds Gastrointestinal: Normal bowel sounds, No tenderness Musculoskeletal: No tenderness Integumentary: No rashes Neurological: Normal tone, Normal affect, Other (Does not follow instructions well, can do simple one step commands, moves all extremitites, questionable mild facial droop.), Abnormal speech (Slurred, confused speech), Abnormal strength (4/5 stregth all extremities) - Studies Laboratory Data (last 24 hrs) 05/27/22 00:03: PT 11.8, INR 1.07 05/27/22 00:03: WBC 8.90, Hgb 14.8, Hct 44.1, Plt Count 267 05/27/22 00:03: Sodium 141, Potassium 3.0 L, BUN 23 H, Creatinine 1.02, Glucose 142 H, Magnesium 1.9, Total Bilirubin 0.8, AST 10 L, ALT 22, Alkaline Phosphatase 100 Assessment and Plan - Plan Assessment: Acute metabolic encephalopathy rule out CVA/seizure/neoplasm History of glioblastoma status post excision, radiation on oral chemo monthly History of CAD status post CABG Diabetes type 7vjz-niaaili-drekxqrdl Hypertension Plan: Acute metabolic encephalopathy rule out CVA/seizure/neoplasm- hx of CVA, glioblastoma: MRI, EEG, Echo, carotid doppler ordered. Patient has been choking on pills/food at home, NPO now, IVF, speech/PT/OT consults, neurology consult. Dobhoff ordered for meds/possibly tube feeds. Will consult banking services advisor as well. History of glioblastoma status post excision, radiation on oral chemo monthly: neurology consult in place, follows Dr. Rodriguez at [facility]. History of CAD status post CABG: Continue ASA, Statin, plavix Diabetes type 7wwl-kjsuuqy-rizvoisgm: ACHS accucheck, SSI Hypertension: Continue home meds. DVT PPX: Lovenox Code status: Full Discharge Plan: Home Plan to discharge in: Greater than 2 days - Advance Directives Does patient have a Living Will: No Does patient have a Durable POA for Healthcare: No - Code Status/Comfort Care Code Status Assessed: Yes (Full code) Critical Care: No Time Spent Managing Pts Care (In Minutes): 70
[2022-05-27] MEDS ORDERED: ASPIRIN 300 MG/SUPP ONE (02:26)
[2022-05-27 02:37] LABS: SARS-COV-2 RT PCR NEGATIVE (NEGATIVE)
[2022-05-27] MEDS ORDERED: KCL 20 MEQ/100 mL IVPB 100 ML IV ONE (03:13)
[2022-05-27 03:36] LABS: Urine Blood Trace-intact (Negative); Urine Glucose Trace (Negative); Urine Protein 2+ (Negative); Urine Specific Gravity 1.025 (1.005-1.030)
[2022-05-27] MEDS ORDERED: ONDANSETRON 4 MG/2 ML VIAL IV PRN (03:38)
[2022-05-27] MEDS ORDERED: ACETAMINOPHEN 650MG/RECT SUPP PR PRN (03:38)
[2022-05-27] MEDS ORDERED: D5 0.45 NS 1,000 ML IV SCH (03:38)
[2022-05-27 03:52] LABS: Urine Bacteria None Seen /HPF (<20); Urine Mucus Slight /HPF (None Seen)
[2022-05-27] MEDS ORDERED: D5 0.45 NS 1,000 ML IV ONE (05:25)
[2022-05-27 05:56] VITALS: BMI 30.7
[2022-05-27] MEDS: INSULIN -REGULAR HUMAN 50 UNIT/0.5 ML ML SQ SCH ×3 (07:30→16:28)
[2022-05-27] MEDS: CLOPIDOGREL 75 MG TABLET FT SCH (09:00)
[2022-05-27] MEDS: ASPIRIN 81 MG CHEWABLE TABLET FT SCH (09:00)
[2022-05-27] MEDS: levETIRAcetam 500 MG in NA CHLORIDE 0.9% 100 ML IV SCH ×2 (10:08→20:42)
[2022-05-27] MEDS ORDERED: INFLUENZA VACCINE (for 6+ mo) 0.5 ML DOSE IMVAC ONE (12:00)
[2022-05-27] MEDS ORDERED: PNEUMOCOCCAL VACCINE 0.5 ML IMVAC ONE (12:00)
--- NOTE | 2022-05-27 12:34 | RAD REPORT ---
EXAM DESCRIPTION: RAD - Abdomen 1 View (KUB) - 05/27/2022 12:17 pm CLINICAL HISTORY: Dubhoff placement Pain COMPARISON: No comparisons FINDINGS: Enteric tube tip is in the stomach.
--- NOTE | 2022-05-27 13:09 | RAD REPORT ---
EXAM DESCRIPTION: CT - Head Brain Wo Cont - 05/27/2022 6:55 am Head Brain Wo Cont CLINICAL HISTORY: 66 years Male weakness COMPARISON: CT head without contrast dated 09/29/2021 Technique: Contiguous axial images of the brain were obtained without the administration of intrave nous contrast.This exam was performed according to our departmental dose-optimization program which i ncludes use of Automated Exposure Control, adjustment of the mA and/or kV according to patient size a nd/or use of iterative reconstruction technique. DLP: 865 mGy*cm FINDINGS: Brain: Prior left temporal postsurgical changes with encephalomalacia. No acute intracranial hemorrha ge. No extra-axial collection. No mass effect or herniation. Prominence of the sulci and cisterns. Confluent periventricular and subcortical white matter hypodensity is noted. Vascular calcifications. Ventricles: Allowing for underlying cerebral volume loss, ventricular size appears within normal limi ts. Globes and orbits: No acute abnormality. Prior cataract surgery. Bones: No acute osseous finding Paranasal sinuses: Paranasal sinuses are clear. Mastoid air cells: Well pneumatized. Soft tissues: Within normal limits IMPRESSION: 1. No acute hemorrhage, hydrocephalus or herniation. 2. Cerebral volume loss, chronic small vessel ischemic changes and left temporal postsurgical changes .. Consider MRI brain for further evaluation. Electronically signed by: Amadou Daniel DO 05/27/2022 1:05 AM SAFETY ATTENDANT Due to temporary technical issues with the PACS/Fluency reporting system, reports are being signed by the in house radiologists without review as a courtesy to insure prompt reporting. The interpreting radiologist is fully responsible for the content of the report.
[2022-05-27] MEDS: AMLODIPINE 5 MG TAB PO SCH (14:35)
[2022-05-27] MEDS: ENOXAPARIN 40 MG/0.4 ML SQ SCH (14:36)
--- NOTE | 2022-05-27 14:46 | RAD REPORT ---
EXAM DESCRIPTION: Chest Single View CLINICAL HISTORY: 66 years Male weakness COMPARISON: None FINDINGS: Lung volumes adequate. Cardiac silhouette is normal. No pneumothorax. No large pleural effusion. No focal consolidation. No acute bony finding. Nonspecific ovoid radiodensity projecting over the right lateral chest wall. IMPRESSION: No acute cardiopulmonary findings. Electronically signed by: Ramsey Melvin MD 05/27/2022 12:29 AM HOT BILLET SHEAR OPERATOR Due to temporary technical issues with the PACS/Fluency reporting system, reports are being signed by the in house radiologists without review as a courtesy to insure prompt reporting. The interpreting radiologist is fully responsible for the content of the report.
--- NOTE | 2022-05-27 15:04 | RAD REPORT ---
EXAM DESCRIPTION: US - CP - 05/27/2022 2:17 pm CLINICAL HISTORY: AMS, slurred speech, hx cva/glioblastoma Headache, drowsiness COMPARISON: Head Brain Wo Cont dated 05/27/2022 TECHNIQUE: Real-time sonographic evaluation of both carotid systems was performed. Doppler interroga tion was performed with waveform tracing bilaterally. FINDINGS: Patient combativeness limited the ability of the him tech to properly perform the study . Mild mixed plaque is seen in both carotid bulbs. Peak systolic and end diastolic velocity values and the ICA/CCA ratios are in the non-hemodynamically significant range. Right vertebral artery nonvisualized. Antegrade flow seen left vertebral artery. IMPRESSION: Mild mixed plaque is seen in both carotid bulbs. No evidence of a hemodynamically significant stenosis. Significantly limited study due to patient cooperation issues.
--- NOTE | 2022-05-27 17:01 | EKG ---
Test Date: 2022-05-27 Test Time: 00:12:32 Journeyman Press Operator: JOHN MEASUREMENT RESULTS: Intervals: Rate: 87 MD: 130 QRSD: 104 QT: 408 QTc: 490 [place]: P: 20 MD: 130 QRS: -23 T: 116 INTERPRETIVE STATEMENTS: Sinus rhythm with premature supraventricular complexes Left ventricular hypertrophy with repolarization abnormality Prolonged QT Abnormal ECG Compared to ECG 09/29/2021 12:55:57 Atrial premature complex(es) now present Left ventricular hypertrophy now present Early repolarization now present Prolonged QT interval now present Electronically Signed On 05-27-22 17:00:55 FUNERAL HOME MANAGER by Anthony Khalil
[2022-05-27] MEDS: ATORVASTATIN 40 MG TAB FT SCH (20:44)
[2022-05-27] MEDS ORDERED: HYDRALAZINE HCL 20 MG/ML VIAL IV PRN (21:16)
[2022-05-27] MEDS: LOSARTAN POTASSIUM 50 MG TABLET FT SCH (22:53)
[2022-05-28] MEDS: INSULIN -REGULAR HUMAN 50 UNIT/0.5 ML ML SQ SCH ×4 (01:00→18:00)
[2022-05-28 06:12] LABS: Absolute Lymphocytes (CBC) 1.6 K/uL (0.7-4.9); Hematocrit 40.3 % (39.6-49.0); Lymphocytes % 21.7 % (15.3-44.8); MCV 82.8 fL (80-100); MPV 7.9 fL (7.6-11.3); RBC Red Blood Cell Count 4.86 M/uL (4.33-5.43)
[2022-05-28 06:53] LABS: Albumin 3.4 g/dL (3.4-5.0); Bilirubin Total 0.9 mg/dL (0.2-1.0); Magnesium 1.7 mg/dL (1.6-2.4); Protein, Total 6.8 g/dL (6.4-8.2); Thyroid Stimulating Hormone 0.808 uIU/mL (0.358-3.740)
[2022-05-28 07:03] LABS: Potassium 2.8 mmol/L (3.5-5.1)
[2022-05-28] MEDS: LOSARTAN POTASSIUM 50 MG TABLET FT SCH ×2 (09:00→10:21)
[2022-05-28] MEDS: ASPIRIN 81 MG CHEWABLE TABLET FT SCH ×2 (09:00→10:21)
[2022-05-28] MEDS: AMLODIPINE 5 MG TAB PO SCH ×2 (09:00→10:21)
[2022-05-28] MEDS: CLOPIDOGREL 75 MG TABLET FT SCH ×2 (09:00→10:21)
[2022-05-28] MEDS: ENOXAPARIN 40 MG/0.4 ML SQ SCH (09:12)
[2022-05-28] MEDS: levETIRAcetam 500 MG in NA CHLORIDE 0.9% 100 ML IV SCH ×2 (09:48→20:27)
[2022-05-28] MEDS: KCL 20 MEQ/100 mL IVPB 20 MEQ/100 ML BAG IV SCH ×4 (09:48→23:37)
[2022-05-28] MEDS ORDERED: GLUCERNA 1.5 CAL 1,000 ML BOT RTH SCH (10:00)
--- NOTE | 2022-05-28 10:36 | P.PN ---
Subjective Date of Service: 05/28/22 Chief Complaint: AMS Subjective: Improving (Patient is more alert responsive cooperative today has a Dobbhoff in place he pulled it out once has been reinserted) Review of Systems is unable to be obtained General: Weakness Physical Examination - Vital Signs Temperature: 98.2 F Blood Pressure: 139/65 Pulse: 110 Respirations: 16 Pulse Ox (%): 96 - Physical Exam General: Alert, Oriented x1, Cooperative Neck: Supple Respiratory: Clear to auscultation bilaterally, Diminished Cardiovascular: No edema, Regular rate/rhythm, Normal S1 S2 Assessment And Plan - Current Problems (Diagnosis) (1) Altered mental status Current Visit: Yes Status: Acute Plan: Patient is 66 years of age admitted with altered mental status he is improving surgery for glioblastoma speech evaluation pending patient has a Dobbhoff in place we will started on Glucerna also started on seizure prophylaxis hypokalemia blood pressure is better controlled postsurgical changes noted on CT scan Qualifiers: Altered mental status type: somnolence Qualified Code(s): R40.0 - Somnolence
[2022-05-28] MEDS: POTASSIUM 25 MEQ EFFERV TAB PO SCH ×2 (10:37→21:00)
--- NOTE | 2022-05-28 13:57 | RAD REPORT ---
EXAM DESCRIPTION: MRI - Brain W/Wo Cont - 05/28/2022 1:24 pm CLINICAL HISTORY: AMS; slurred speech; hx of cva and glioblastoma COMPARISON: MRA Head Wo Cont dated 05/28/2022; Brain W/Wo Cont dated 09/29/2021; Head Brain Wo Cont d ated 05/27/2022 TECHNIQUE: Sagittal T1-weighted images were obtained along with PD/heavily T2-weighted and T2-FLAIR images. Axial DWI and ADC mapping sequences were also obtained along with coronal heavily T2-weighted images were obtained. Post contrast enhanced images were obtained. FINDINGS: Portions of the left temporal lobe are obscured on diffusion sequence due to artifact. The re is a resection cavity in the left temporal lobe. No midline shift. No acute infarct though note th at the diffusion weighted sequences obscured by artifact from the left-sided craniotomy. Moderate chr onic small vessel ischemic changes. Numerous new enhancing lesions are identified. The surface of the cerebellum is studded with numerous lesions. In the right cerebellar hemisphere measures 17 millimeters which is new. There are several enhancing plaque-like lesions within normal surface of the left and right lateral ventricle. Vasogenic edema is present at the left temporal lobe. Nodular enhancement is present at the resection cavity. This is concerning for local recurrence is well. No mastoid effusion.Paranasal sinuses are clear. 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 There are lesions both above and below the tentorium. No infarct identified. No midline shift.
--- NOTE | 2022-05-28 14:02 | RAD REPORT ---
EXAM DESCRIPTION: MRI - MRA Neck W/Wo Cont - 05/28/2022 1:24 pm CLINICAL HISTORY: AMS; slurred speech; hx of cva and glioblastoma COMPARISON: No comparisons FINDINGS: Contrast enhance 2D [id number] MR angiography of the neck vessels was performed. Both carotid systems and vertebral arteries are widely patent. No stenosis identified. No dissection. IMPRESSION: No flow limiting stenosis identified within the neck.
--- NOTE | 2022-05-28 14:14 | RAD REPORT ---
EXAM DESCRIPTION: RAD - Abdomen 1 View (KUB) - 05/28/2022 1:37 pm CLINICAL HISTORY: dobhoff placement COMPARISON: Abdomen 1 View (KUB) dated 05/28/2022; Abdomen 1 View (KUB) dated 05/27/2022; Head Brain Wo Cont dated 05/27/2022 FINDINGS: Nonobstructive bowel gas pattern. No acute osseous abnormality.Visualized lungs are unrema rkable.No abnormal calcifications. Weighted feeding tube tip overlies the stomach. IMPRESSION: Nonobstructive bowel gas pattern. Weighted feeding tube tip overlies the stomach.
--- NOTE | 2022-05-28 14:19 | RAD REPORT ---
EXAM DESCRIPTION: MRI - MRA Head Wo Cont - 05/28/2022 1:24 pm CLINICAL HISTORY: AMS; slurred speech; hx of cva and glioblastoma CVA COMPARISON: Brain W/Wo Cont dated 09/29/2021 FINDINGS: 3D noncontrast [id number] MR angiography of the [place] was performed. The examination is significantly limited due to artifact as result of prior craniotomy. Both vertebra l arteries and basilar artery are patent. The left posterior cerebral artery has an abrupt occlusion but this is in the region of artifact. The right posterior cerebral artery is patent. Both middle cer ebral arteries are grossly patent. The anterior cerebral arteries are not well evaluated proximally b ut are patent distally. IMPRESSION: Limited due to artifact. The left P2 segment of the posterior cerebral artery is nonvisu alized. This is favored artifactual. The other vessels are grossly patent.
--- NOTE | 2022-05-28 15:52 | RAD REPORT ---
EXAM DESCRIPTION: X-ray abdomen 1 view CLINICAL HISTORY: 66 years Male dobhoff reinsertion TECHNIQUE: 1 x-ray view of the abdomen was performed on 05/28/2022 at 6:26 AM. COMPARISON: KUB report from 05/27/2022. The image was unavailable for review. FINDINGS: The bowel gas pattern is nonspecific and nonobstructive. The tip of the Dobbhoff feedin g tube projects over the left upper quadrant in the region of the proximal stomach. No pathologic abdominal or pelvic calcifications are identified. No abnormal air collections are identified. No focal soft tissue abnormalities are seen. There are multiple overlying manager cardiac cath leads. No acute osseous abnormalities are identified. There are mild degenerative changes of the lumbar spin e and pelvis. IMPRESSION: The tip of the Dobbhoff feeding tube projects over the left upper quadrant in the region of the proximal stomach. Electronically signed by: Anju Lawson DO 05/28/2022 6:49 AM SYSTEM TRAINER Due to temporary technical issues with the PACS/Fluency reporting system, reports are being signed by the in house radiologists without review as a courtesy to insure prompt reporting. The interpreting radiologist is fully responsible for the content of the report.
--- NOTE | 2022-05-28 17:55 | RAD REPORT ---
EXAM DESCRIPTION: RAD - Abdomen 1 View (KUB) - 05/28/2022 5:39 pm CLINICAL HISTORY: dubhoff placement COMPARISON: Abdomen 1 View (KUB) dated 05/28/2022; Abdomen 1 View (KUB) dated 05/28/2022; Abdomen 1 View (KUB) dated 05/27/2022 FINDINGS: Nonobstructive bowel gas pattern. No acute osseous abnormality.Visualized lungs are unrema rkable.No abnormal calcifications. The weighted feeding tube coils on itself and terminates in the di stal esophagus . IMPRESSION: Interval repositioning of the weighted feeding tube which now doubles back on itself and terminates in the distal esophagus.
[2022-05-28] MEDS: ATORVASTATIN 40 MG TAB FT SCH (21:00)
[2022-05-28 22:02] LABS: Potassium 3.4 mmol/L (3.5-5.1)
[2022-05-28] MEDS ORDERED: NA CHLORIDE 0.9% 250 ML ONE (23:42)
[2022-05-29] MEDS: KCL 20 MEQ/100 mL IVPB 20 MEQ/100 ML BAG IV SCH (01:46)
[2022-05-29] MEDS ORDERED: LABETALOL 20 MG/4ML SYRINGE IV ONE (02:05)
[2022-05-29 03:42] LABS: Absolute Lymphocytes (CBC) 1.5 K/uL (0.7-4.9); Hematocrit 39.4 % (39.6-49.0); Lymphocytes % 20.1 % (15.3-44.8); MCV 83.2 fL (80-100); MPV 8.1 fL (7.6-11.3); RBC Red Blood Cell Count 4.74 M/uL (4.33-5.43)
[2022-05-29 04:08] LABS: Albumin 3.5 g/dL (3.4-5.0); Bilirubin Total 0.8 mg/dL (0.2-1.0); Magnesium 1.6 mg/dL (1.6-2.4); Potassium 3.6 mmol/L (3.5-5.1); Protein, Total 6.9 g/dL (6.4-8.2)
[2022-05-29] MEDS: INSULIN -REGULAR HUMAN 50 UNIT/0.5 ML ML SQ SCH ×3 (06:00→12:00)
[2022-05-29] MEDS: levETIRAcetam 500 MG in NA CHLORIDE 0.9% 100 ML IV SCH (08:52)
[2022-05-29] MEDS: ENOXAPARIN 40 MG/0.4 ML SQ SCH (08:53)
[2022-05-29] MEDS: ASPIRIN 81 MG CHEWABLE TABLET FT SCH (08:53)
[2022-05-29] MEDS: LOSARTAN POTASSIUM 50 MG TABLET FT SCH (08:53)
[2022-05-29] MEDS: POTASSIUM 25 MEQ EFFERV TAB PO SCH (08:53)
[2022-05-29] MEDS: AMLODIPINE 5 MG TAB PO SCH (08:54)
[2022-05-29] MEDS: CLOPIDOGREL 75 MG TABLET FT SCH (09:00)
[2022-05-29] MEDS ORDERED: KCL 20 MEQ/100 mL IVPB 20 MEQ/100 ML BAG IV SCH (09:00)
--- NOTE | 2022-05-29 11:00 | RAD REPORT ---
EXAM DESCRIPTION: XR Abdomen, 1 View CLINICAL HISTORY: Feeding tube reinsertion TECHNIQUE: Frontal supine view of the abdomen/pelvis. COMPARISON: XR Abdomen dated 05/28/2022 at 5: 33 PM FINDINGS: Limitations: Examination tailored for evaluation of feeding tube placement. The right lateral abdomen and lower pelvis are collimated off the [id number]. Gastrointestinal tract: Unremarkable. No dilation. Bones/joints: Multilevel spondylosis. Tubes, lines and devices: Feeding tube advanced. The tip is oriented cranially and projects over the left upper quadrant in the expected region of the proximal stomach. IMPRESSION: Feeding tube advanced. The tip is oriented cranially and projects over the left upper quadrant in the expected region of the proximal stomach. Electronically signed by: Genna Denney MD 05/29/2022 12:24 AM LIFE SCIENTIST Due to temporary technical issues with the PACS/Fluency reporting system, reports are being signed by the in house radiologists without review as a courtesy to insure prompt reporting. The interpreting radiologist is fully responsible for the content of the report.
[2022-05-29 11:16] VITALS: O2SAT 96
[2022-05-29 12:46] VITALS: BP 145/97; TEMP 97.8
--- NOTE | 2022-05-29 13:16 | P.DS ---
Admission Date: 05/27/22 Discharge Date: 05/29/22 Reason for Admission: AMS - Problems (1) Acute metabolic encephalopathy Current Visit: Yes Status: Acute (2) Glioblastoma multiforme Current Visit: Yes Status: Acute (3) Oropharyngeal dysphagia Current Visit: Yes Status: Acute (4) Diabetes mellitus type 2 in obese Current Visit: Yes Status: Acute Brief History of Present Illness: 66-year-old male with history of [id number] diabetes, previous ischemic CVA, glioblastoma s/p resection on oral chemotherapy monthly status post radiation, hypertension, CAD status post CABG presented to the emergency department for progressive weakness, altered mental status. Family reports over the course of the last 1 to 2 weeks has had progressive weakness in the last 3 to 4 days has been having slurred speech and confusion, appears to be hallucinating. Patient was evaluated here in the emergency department his labs were significant for a potassium of 3.0 glucose 142 BNP 293 chest x-ray negative for acute findings CT head shows previous CVA findings, postsurgical changes left temporal area related to previous glioblastoma excision with no other acute findings. Patient was globally confused. Family does report that he has had difficulty with swallowing 2 days including choking on his medication, vomiting after eating or drinking. Patient admitted for further management. Hospital Course: Patient admitted to the medical floor and started on seizure prophylaxis with Keppra per neurology recommendation. Patient was seen in consultation by neurology Dr. Whaley. Attempt to feed him via an NG tube was unsuccessful due to multiple unsuccessful attempts, last attempt showed NG tube kinked in the stomach. 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 Lesions are both above and below the tentorium. This was communicated to the family. Family initially requested for transfer to [facility] where he has been receiving his cancer treatment. Transfer to [facility] was initiated and was waiting for Dr. Hunter Bartlett discussions to be done. Family later decided to sign him out AGAINST MEDICAL ADVICE with plans to go to the [facility] to seek medical care there. Spouse signed the AMA form, and family left with the patient. Family was provided his imaging results, and lab results to facilitate care elsewhere. Vital Signs/Physical Exam: Temp Pulse Resp BP Pulse Ox 97.8 F 122 H 20 145/97 H 96 05/29/22 12:00 05/29/22 12:00 05/29/22 12:00 05/29/22 12:00 05/29/22 12:00 General: In no apparent distress, Confused HEENT: Mucous membr. moist/pink, Sclerae nonicteric Neck: JVD not distended Respiratory: Normal air movement Cardiovascular: No edema, Regular rate/rhythm, Normal S1 S2 Gastrointestinal: Normal bowel sounds, Soft and benign, Non-distended, No tenderness Musculoskeletal: No swelling Integumentary: No cyanosis Neurological: Other (Moves all extremities spontaneously) Laboratory Data at Discharge: WBC 7.70 K/uL (4.3-10.9) 05/29/22 02:40 Hgb 13.4 g/dL (13.6-17.9) L 05/29/22 02:40 Hct 39.4 % (39.6-49.0) L 05/29/22 02:40 Plt Count 230 K/uL (152-406) 05/29/22 02:40 PT 11.8 SECONDS (9.5-12.5) 05/27/22 00:03 INR 1.07 05/27/22 00:03 Sodium 139 mmol/L (136-145) 05/29/22 02:40 Potassium 3.6 mmol/L (3.5-5.1) 05/29/22 02:40 BUN 13 mg/dL (7-18) 05/29/22 02:40 Creatinine 0.57 mg/dL (0.70-1.30) L 05/29/22 02:40 Glucose 133 mg/dL (74-106) H 05/29/22 02:40 Magnesium 1.6 mg/dL (1.6-2.4) 05/29/22 02:40 Total Bilirubin 0.8 mg/dL (0.2-1.0) 05/29/22 02:40 AST 12 U/L (15-37) L 05/29/22 02:40 ALT 18 U/L (16-61) 05/29/22 02:40 Alkaline Phosphatase 85 U/L (45-117) 05/29/22 02:40 Triglycerides 103 mg/dL (<150) 05/28/22 05:44 Cholesterol 109 mg/dL (<200) 05/28/22 05:44 HDL Cholesterol 40 mg/dL (40-60) 05/28/22 05:44 Cholesterol/HDL Ratio 2.73 05/28/22 05:44 Home Medications: Aspirin [Adult Low Dose Aspirin EC] 81 mg PO DAILY 05/27/22 Atorvastatin Calcium 40 mg PO DAILY 05/27/22 Clopidogrel Bisulfate [Clopidogrel] 75 mg PO DAILY 05/27/22 Gabapentin [Neurontin*] 100 mg PO QID PRN 05/27/22 Hydrocodone Bit/Acetaminophen [Hydrocodon-Acetaminophen 5-325] 1 tab PO BID PRN 05/27/22 Losartan Potassium [Cozaar*] 50 mg PO DAILY 05/27/22 Metformin HCl 1,000 mg PO BIDWM 05/27/22 Metoprolol Succinate [Toprol Xl*] 25 mg PO DAILY 05/27/22 bisacodyL [Dulcolax*] 1 tab PO DAILY PRN 05/27/22 Followup: Edgard Reaves, [Primary Care Provider] - Time spent managing pt's care (in minutes): 35
== END 2022-05-29 13:39 | disposition left against medical advice (07) | DRG 100 ==
LOC: ER 22:55 → ERHOLD 05-27 02:11 → 4TH 05-27 05:59
PROVIDERS: ADMIT Internal Medicine Sleep Medicine; ATTEND Internal Medicine
DX: R56.9 Unspecified convulsions (principal); G93.41 Metabolic encephalopathy; C71.9 Malignant neoplasm of brain, unspecified; I10 Essential (primary) hypertension; E11.9 Type 2 diabetes mellitus without complications; E87.6 Hypokalemia; I25.10 Atherosclerotic heart disease of native coronary artery without angina pectoris; R13.12 Dysphagia, oropharyngeal phase; R47.81 Slurred speech; Z95.1 Presence of aortocoronary bypass graft; Z53.29 Procedure and treatment not carried out because of patient's decision for other reasons; Z79.82 Long term (current) use of aspirin; Z86.73 Personal history of transient ischemic attack (TIA), and cerebral infarction without residual deficits; Z79.02 Long term (current) use of antithrombotics/antiplatelets; Z79.84 Long term (current) use of oral hypoglycemic drugs; Z79.899 Other long term (current) drug therapy; Z20.822 Contact with and (suspected) exposure to COVID-19
CPT/HCPCS: 0240U; 36415; 70450; 70544; 70549; 70553; 71045; 74018; 80048; 80053; 80061; 80076; 81003; 81015; 82947; 83036; 83605; 83735; 83880; 84145; 84439; 84443; 84484; 85025; 85610; 87040; 93005; 93880; 96361; 96365; 96375; 97110; 97116; 97161; 97165; 97530; 99285; A9577; J0360; J1650; J1953; J3480; J7040; J7050; J7799